=== PATIENT | male | born 1940 | race Caucasian/White ===

== ENCOUNTER 2016-04-30 08:16 | Emergency (ER) | payer MEDICARE, OTHER ==
[2016-04-30] MEDS ORDERED: SODIUM CHLORIDE 0.9% 1,000 ML IV STA (08:33)
[2016-04-30] MEDS ORDERED: PANTOPRAZOLE 40 MG/10 ML VIAL IVP STA (08:33)
[2016-04-30] MEDS ORDERED: ONDANSETRON 4 MG/2 ML VIAL IVP STA (08:33)
--- NOTE | 2016-04-30 08:35 | ED ---
General Adult HPI - General Chief complaint: Abdominal Pain Stated complaint: diarrhea x 6 days, stomach distended Time Seen by Provider: 04/30/16 08:24 Source: patient, RN notes reviewed Mode of arrival: ambulatory Limitations: no limitations - History of Present Illness Initial comments: Patient 75-year-old male who presents emergency room today with chief complaint of diarrhea times one week. Patient does admit that over the past week he had multiple episodes of diarrhea. States took Imodium seemed to improve. States yesterday morning had approximately 8 very loose bowel movements. States the rest of today no bowel movements and no bowel movement today. States his abdomen feels somewhat more distended today. He does admit to a cramping type pain that he rates 1/10 in the middle of his abdomen. Patient does admit to being on Coumadin due to A. fib. Does admit that at last bowel movement he wiped he did see some bright red blood on the toilet paper only. Patient denies any other complaints or symptoms. Patient denies any recent fever, chills , shortness of breath, chest pain, back pain, vomiting, numbness or tingling, dysuria or hematuria, constipation or diarrhea, headaches or visual changes, or any other complaints. - Related Data Home Medications Medication Instructions Recorded Confirmed Ascorbic Acid [Vitamin C] 500 mg PO QAM 04/29/15 04/30/16 Aspirin [Adult Low Dose Aspirin EC] 81 mg PO QAM 04/29/15 04/30/16 Atenolol 25 mg PO 04/29/15 04/30/16 Cholecalciferol [Vitamin D3] 1,000 unit PO DAILY 04/29/15 04/30/16 Diltiazem HCl [Cardizem] 120 mg PO [facility] 04/29/15 04/30/16 Esomeprazole Magnesium [NexIUM] 40 mg PO 04/29/15 04/30/16 Ezetimibe/Simvastatin [Vytorin 1 tab PO QAM 04/29/15 04/30/16 10-40 mg Tablet] Lisinopril [Zestril] 20 mg PO QAM 04/29/15 04/30/16 Tamsulosin [Flomax] 0.4 mg PO 04/29/15 04/30/16 Warfarin [Coumadin] 2.5 mg PO DAILY 04/29/15 04/30/16 Calcium Carbonate [Calcium] 600 mg PO DAILY 04/30/16 04/30/16 Allergies Allergy/AdvReac Type Severity Reaction Status Date / Time No Known Allergies Allergy Verified 04/30/16 10:14 Review of Systems ROS Statement: Those systems with pertinent positive or pertinent negative responses have been documented in the HPI. ROS Other: All systems not noted in ROS Statement are negative. 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 Eye: Pupils are equal, round and reactive to light, extra-ocular movements are intact. No nystagmus. There is normal conjunctiva bilaterally. No signs of icterus. Ears, nose, mouth and throat: There are moist mucous membranes and no oral lesions. Neck: The neck is supple, there is no tenderness or JVD. Cardiovascular: There is a regular rate and rhythm. No murmur, rub or gallop is appreciated. Respiratory: Lungs are clear to auscultation, respirations are non-labored, breath sounds are equal. No wheezes, stridor, rales, or rhonchi. Gastrointestinal: [Soft, non-distended, non-tender abdomen without masses or organomegaly noted. There is no rebound or guarding present. No CVA tenderness. Bowel sounds are unremarkable.] Musculoskeletal: Normal ROM, no tenderness. Strength 5/5. Sensation intact. Pulses equal bilaterally 2+. Neurological: A&O x 3. CN II-XII intact, There are no obvious motor or sensory deficits. Coordination appears grossly intact. Speech is normal. Skin: Skin is warm and dry and no rashes or lesions are noted. Psychiatric: Cooperative, appropriate mood & affect, normal judgment. Limitations: no limitations Course Vital Signs 04/30/16 04/30/16 04/30/16 08:18 10:06 10:51 Temperature 97.0 F L Pulse Rate 90 74 65 Respiratory 17 18 16 Rate Blood Pressure 136/82 129/61 128/79 O2 Sat by Pulse 98 98 99 Oximetry Medical Decision Making - Medical Decision Making Vision reexamined at this time shows no signs of distress. Patient resting comfortably in the stretcher. His abdomen soft and palpation. Patient's CT reviewed and does show evidence for enteritis/colitis. Does show fatty infiltrate of the liver. Results were discussed with the patient. At this time is resting comfortably. His labs are been reviewed and are unremarkable. Case discussed with attending physician Dr. Marcelo. Patient will be discharged home advised follow-up the family doctor over the next 2 days. He is advised to use Imodium for any diarrhea. Advised return if any symptoms increase or worsen. Patient and family were at bedside state understanding and are in agreement. - Lab Data Result diagrams: 04/30/16 08:45 04/30/16 08:45 Lab Results 04/30/16 04/30/16 04/30/16 Range/Units 08:45 08:45 08:45 WBC 7.2 (3.8-10.6) k/uL RBC 5.02 (4.30-5.90) m/uL Hgb 15.4 (13.0-17.5) gm/dL Hct 44.8 (39.0-53.0) % MCV 89.3 (80.0-100.0) fL MCH 30.7 (25.0-35.0) pg MCHC 34.3 (31.0-37.0) g/dL RDW 12.9 (11.5-15.5) % Plt Count 168 (150-450) k/uL Neutrophils % 69 % Lymphocytes % 19 % Monocytes % 7 % Eosinophils % 2 % Basophils % 1 % Neutrophils # 5.0 (1.3-7.7) k/uL Lymphocytes # 1.3 (1.0-4.8) k/uL Monocytes # 0.5 (0-1.0) k/uL Eosinophils # 0.1 (0-0.7) k/uL Basophils # 0.1 (0-0.2) k/uL PT 14.9 H (9.0-12.0) sec INR 1.5 (<1.1) APTT 28.0 (22.0-30.0) sec Sodium 144 (137-145) mmol/L Potassium 4.3 (3.5-5.1) mmol/L Chloride 107 (98-107) mmol/L Carbon Dioxide 24 (22-30) mmol/L Anion Gap 13 mmol/L BUN 16 (9-20) mg/dL Creatinine 1.07 (0.66-1.25) mg/dL Est GFR (MDRD) Af Amer >60 (>60 ml/min/1.73 sqM) Est GFR (MDRD) Non-Af >60 (>60 ml/min/1.73 sqM) Glucose 136 H (74-99) mg/dL Calcium 8.9 (8.4-10.2) mg/dL Total Bilirubin 0.9 (0.2-1.3) mg/dL AST 45 (17-59) U/L ALT 57 (21-72) U/L Alkaline Phosphatase 77 (38-126) U/L Total Protein 6.6 (6.3-8.2) g/dL Albumin 4.0 (3.5-5.0) g/dL Urine Color Urine Appearance (Clear) Urine pH (5.0-8.0) Ur Specific [place] (1.001-1.035) Urine Protein (Negative) Urine Glucose (UA) (Negative) Urine Ketones (Negative) Urine Blood (Negative) Urine Nitrate (Negative) Urine Bilirubin (Negative) Urine Urobilinogen (<2.0) mg/dL Ur Leukocyte Esterase (Negative) Stool Occult Blood (Negative) 04/30/16 04/30/16 Range/Units 08:45 08:45 WBC (3.8-10.6) k/uL RBC (4.30-5.90) m/uL Hgb (13.0-17.5) gm/dL Hct (39.0-53.0) % MCV (80.0-100.0) fL MCH (25.0-35.0) pg MCHC (31.0-37.0) g/dL RDW (11.5-15.5) % Plt Count (150-450) k/uL Neutrophils % % Lymphocytes % % Monocytes % % Eosinophils % % Basophils % % Neutrophils # (1.3-7.7) k/uL Lymphocytes # (1.0-4.8) k/uL Monocytes # (0-1.0) k/uL Eosinophils # (0-0.7) k/uL Basophils # (0-0.2) k/uL PT (9.0-12.0) sec INR (<1.1) APTT (22.0-30.0) sec Sodium (137-145) mmol/L Potassium (3.5-5.1) mmol/L Chloride (98-107) mmol/L Carbon Dioxide (22-30) mmol/L Anion Gap mmol/L BUN (9-20) mg/dL Creatinine (0.66-1.25) mg/dL Est GFR (MDRD) Af Amer (>60 ml/min/1.73 sqM) Est GFR (MDRD) Non-Af (>60 ml/min/1.73 sqM) Glucose (74-99) mg/dL Calcium (8.4-10.2) mg/dL Total Bilirubin (0.2-1.3) mg/dL AST (17-59) U/L ALT (21-72) U/L Alkaline Phosphatase (38-126) U/L Total Protein (6.3-8.2) g/dL Albumin (3.5-5.0) g/dL Urine Color Yellow Urine Appearance Clear (Clear) Urine pH 5.0 (5.0-8.0) Ur Specific [place] 1.014 (1.001-1.035) Urine Protein Negative (Negative) Urine Glucose (UA) Negative (Negative) Urine Ketones Negative (Negative) Urine Blood Negative (Negative) Urine Nitrate Negative (Negative) Urine Bilirubin Negative (Negative) Urine Urobilinogen <2.0 (<2.0) mg/dL Ur Leukocyte Esterase Negative (Negative) Stool Occult Blood Negative (Negative) Disposition Clinical Impression: Acute diarrhea, Colitis Disposition: HOME SELF-CARE Condition: Good Instructions: Acute Diarrhea (ED) Additional Instructions: Please use medication as discussed. Please follow-up with family doctor in the next 2 days of symptoms have not improved. Please return to emergency room if the symptoms increase or worsen or for any other concerns. Time of Disposition: 10:57
[2016-04-30 08:58] LABS: Basophils # (A) 0.1 k/uL (0-0.2); Basophils % (A) 1 %; Eosinophils # (A) 0.1 k/uL (0-0.7); Eosinophils % (A) 2 %; HCT 44.8 % (39.0-53.0); HDW 2.94; HGB 15.4 gm/dL (13.0-17.5); Luc # (Auto) 0.18; Luc % (Auto) 3; Lymphocytes # (A) 1.3 k/uL (1.0-4.8); Lymphocytes % (A) 19 %; MCH 30.7 pg (25.0-35.0); MCHC 34.3 g/dL (31.0-37.0); MCV 89.3 fL (80.0-100.0); Monocytes # (A) 0.5 k/uL (0-1.0); Monocytes % (A) 7 %; Neutrophils % (A) 69 %; RBC 5.02 m/uL (4.30-5.90); RDW 12.9 % (11.5-15.5); WBC 7.2 k/uL (3.8-10.6)
[2016-04-30] MEDS ORDERED: RX INFO: IV CONTRAST WAS GIVEN 1 EACH MISC MISCELLANE PRN (08:58)
[2016-04-30 08:59] LABS: Appearance,Urine Clear (Clear); Bilirubin,Urine Negative (Negative); Glucose,Urine (UA) Negative (Negative); Ketones,Urine Negative (Negative); Leukocyte Esterase,Urine Negative (Negative); Nitrite,Urine Negative (Negative); Protein,Urine Negative (Negative); Specific Gravity,Urine 1.014 (1.001-1.035); UA Billing (MACRO vs. MICRO) CHEM; Urobilinogen,Urine <2.0 mg/dL (<2.0)
--- NOTE | 2016-04-30 09:05 | XR ---
EXAMINATION TYPE: XR KUB DATE OF EXAM ORDERED: 04/30/2016 8:58 AM HISTORY: Abdominal pain and diarrhea. COMPARISON: None. FINDINGS: The abdominal gas pattern is normal. There is no evidence of obstruction or free air. No u nusual calcifications are identified. Scattered colonic air-fluid levels are seen. IMPRESSION: FINDINGS MOST CONSISTENT WITH EARLY COLONIC ILEUS.
[2016-04-30 09:10] LABS: INR 1.5 (<1.1); Prothrombin Time 14.9 sec (9.0-12.0)
[2016-04-30 09:11] LABS: ALT 57 U/L (21-72); AST 45 U/L (17-59); Alkaline Phosphatase 77 U/L (38-126); Anion Gap 13 mmol/L; Blood Urea Nitrogen 16 mg/dL (9-20); Calcium 8.9 mg/dL (8.4-10.2); Carbon Dioxide 24 mmol/L (22-30); Chloride 107 mmol/L (98-107); Glucose 136 mg/dL (74-99); Non-African American GFR(MDRD) >60 (>60 ml/min/1.73 sqM); Potassium 4.3 mmol/L (3.5-5.1); Sodium 144 mmol/L (137-145); Total Bilirubin 0.9 mg/dL (0.2-1.3); Total Protein 6.6 g/dL (6.3-8.2)
--- NOTE | 2016-04-30 10:11 | CT ---
EXAMINATION TYPE: CT abdomen pelvis w con DATE OF EXAM: 04/30/2016 9:52 AM COMPARISON: Abdomen same date HISTORY: Diarrhea and distention CT DLP: 1617.6 mGycm Automated exposure control for dose reduction was used. TECHNIQUE: Helical acquisition of images was performed from the lung bases through the pelvis. CONTRAST: Performed without Oral Contrast and with IV Contrast, patient injected with 100 mL of Omnipaque 300. FINDINGS: There is a small hiatal hernia. LUNG BASES: Dependent atelectatic changes are present posteriorly LIVER/GB: Liver shows low attenuation. It is enlarged compatible with fatty infiltration. Gallbladder is normal. PANCREAS: No significant abnormality is seen. SPLEEN: No significant abnormality is seen. ADRENALS: No significant abnormality is seen. KIDNEYS: No significant abnormality is seen. Small cortical cyst present within the lower pole of the right kidney measures only approximately 1 cm RETROPERITONEAL ADENOPATHY: None visualized REPRODUCTIVE ORGANS: Prostate is enlarged and shows associated calcification URINARY BLADDER: Bladder wall is somewhat thickened likely due to chronic outlet obstruction PELVIC ADENOPATHY: None visualized. OSSEOUS STRUCTURES: Degenerative disc changes are present at the lumbar spine especially at the lowe r levels where there is vacuum phenomenon at L4-5 and L5-S1. There is associated facet arthropathy. BOWEL: Colonic wall thickening is indeterminate. Some minimal diverticular changes present. OTHER: Some fluid-filled loops of small bowel with questionable wall thickening. IMPRESSION: CORRELATE FOR COLITIS, ENTERITIS. DIVERTICULOSIS. PROBABLE FATTY INFILTRATION OF THE LIVER, HEPATOMEG ERIN. SMALL HIATAL HERNIA. ADDITIONAL FINDINGS ABOVE.
[2016-04-30 10:52] VITALS: BP 128/79; PULSE 65; RESP 16
[2016-04-30 11:12] VITALS: TEMP 97.8
== END 2016-04-30 11:12 | disposition home or self-care (01) ==
LOC: EC 08:16
DX: K52.9 Noninfective gastroenteritis and colitis, unspecified (principal); I48.91 Unspecified atrial fibrillation; I10 Essential (primary) hypertension; E78.5 Hyperlipidemia, unspecified; K76.0 Fatty (change of) liver, not elsewhere classified; Z79.01 Long term (current) use of anticoagulants; Z79.82 Long term (current) use of aspirin; Z79.899 Other long term (current) drug therapy
CPT/HCPCS: 36415; 80053; 85025; 85610; 85730; 82272; 81003; 74000; 74177; 99284; 96374; 96375; 96361 ×2; J2405; Q9967; C9113

== ENCOUNTER → 2016-06-15 | Outpatient (CLI) | payer MEDICARE, OTHER ==
--- NOTE | 2016-06-15 22:06 | PN ---
This is a 76-year-old male patient who was originally seen by Dr. Dickey. The patient was initially given CPAP which he failed and he was upgraded to a BiPAP machine. During my latest evaluation of this patient in 2015, I thought the BiPAP was somewhat suboptimal. Nevertheless, the data was not accurate, knowing that the setting on the BiPAP machine was done while the machine set on a full face mask. I changed setting into a nasal pillow, knowing that the patient was using a Her FX nasal pillow and I asked the patient to come back for a followup. In the record, there is a mention that the patient is on an ASV machine; however, this is wrong information and the patient continues to be on a BiPAP ST with a pressure of 18/14 cm of water with a back-up rate of 10. The patient is coming in today for a followup. He is very content and he tells me that he is waking up much more alert and awake during the day and according to him, the treatment was successful. Nevertheless, his compliance data does not reflect that. His AHI while on treatment is still elevated at 42. No central events were recorded. He is leaking considerably around 66 L/min and his recorded tidal volume of 480 mL. His average BiPAP use is around 7.4 hours per night. Despite his compliancy, the data recorded by the machine seems to be suboptimal, as the patient may still be having some obstructive respiratory events, despite utilizing a higher BiPAP with pressures of 18/14. No indication of any treatment ( ) with central apneas. His current vitals are as follows: His blood pressure is 136/85, pulse rate 60, respirations 16, temperature 98.1, saturation 99% on room air and his weight is 205, which is 6 pounds higher compared to his last evaluation back in November 2015. GENERAL APPEARANCE: Calm, comfortable. HEENT: Short neck, crowding of posterior pharynx. There is no goiter, neck masses. LUNGS: Clear to auscultation. HEART: Sounds are regular rate and rhythm. Normal S1, S2. No S3. No S4. No murmurs. ABDOMEN: Soft, nontender. No organomegaly. EXTREMITIES: No clubbing. No cyanosis or clubbing. IMPRESSION: 1. Severe symptomatic obstructive sleep apnea with suboptimal treatment. 2. Hypersomnia. Clinically, the patient is improved; however, based on his compliance data, the patient is still having obstructive respiratory events with an apnea-hypopnea index of 41 while on treatment. this needs to be further adjusted. 3. Obesity with interval weight gain. Body mass index of 35.1. 4. Hypertension. 5. Coronary artery disease. 6. Hyperlipidemia. 7. Gastroesophageal reflux disease. PLAN: 1. Will step up the pressure to 20/16 cm of water. 2. ( ) the Her FX mask with the intention of switching him to a full face mask if the patient's leak increases with the above-mentioned pressure changes. Ultimately, we may need to consider another BiPAP titration if his AHI while on treatment remains high. As mentioned, despite this shortcoming, the patient clinically is improved significantly and he feels much better while on BiPAP treatment. As such, he has been very compliant over the past several months.
--- NOTE | 2016-07-07 08:11 | PN ---
ADDENDUM: DATE OF SERVICE: 06/15/2016 IMPRESSION: The patient has complex sleep apnea with suboptimal treatment and secondary to hypersomnia. PLAN: Make the appropriate BiPAP pressure setting adjustments. Consider another BiPAP titration if the AHI remains considerably elevated.
== END | disposition home or self-care (01) ==
LOC: SLEEP 13:59
PROVIDERS: ATTEND Internal Medicine Critical Care Medicine
DX: G47.33 Obstructive sleep apnea (adult) (pediatric) (principal); G47.10 Hypersomnia, unspecified; E66.9 Obesity, unspecified; Z68.35 Body mass index [BMI] 35.0-35.9, adult; I10 Essential (primary) hypertension; I25.10 Atherosclerotic heart disease of native coronary artery without angina pectoris; E78.5 Hyperlipidemia, unspecified; K21.9 Gastro-esophageal reflux disease without esophagitis

== ENCOUNTER 2020-06-09 20:46 | Inpatient (IN) | payer MEDICARE, OTHER ==
--- NOTE | 2020-06-09 23:16 | ED ---
General Adult HPI - General Stated complaint: Vision problems Source: patient Mode of arrival: ambulatory Limitations: no limitations - History of Present Illness Initial comments: Dictation was produced using [employer] dictation software. please excuse any grammatical, word or spelling errors. This patient was cared for during a federal and state declared state of emergency secondary to Covid 19 Chief Complaint: 80-year-old male presents with acute diplopia History of Present Illness: This 72-year-old male who has past medical history dyslipidemia, A. fib and hypertension. Patient states he developed acute diplopia starting at 8:30 PM. States when this happened he was resting. Patient denies any history of diplopia. Has history of pituitary tumor that was operated on transfer and I believe several months ago. Patient has any numbness and paresthesias to the arms or legs. is at bedside reports he does not look confused. He does not have any facial asymmetry. Patient has history of A. fib. He takes Coumadin. The ROS documented in this emergency department record has been reviewed and confirmed by me. Those systems with pertinent positive or negative responses have been documented in the HPI. All other systems are other negative and/or noncontributory. PHYSICAL EXAM: General Impression: Alert and oriented x3, not in acute distress HEENT: Normocephalic atraumatic, pupils equal and reactive to light bilaterally, mucous membranes moist Cardiovascular: Heart regular rate and rhythm Chest: Able to complete full sentences, no retractions, no tachypnea Abdomen: abdomen soft, non-tender, non-distended, no organomegaly Musculoskeletal: Pulses present and equal in all extremities, no peripheral edema Motor: no focal deficits noted Neurological: Pupils equal round reactive to light, no facial asymmetry, patient does have inability for the pupil to track upwards of the right eye when asked to look up. He will with straight gaze does not have done a no pupil, no appreciable ptosis. No focal neurologic deficits of the arms or legs. No ataxia. No aphasia or dysarthria Skin: Intact with no visualized rashes Psych: Normal affect and mood ED course: 80-year-old male presents with acute diplopia. Vital signs upon arrival are within acceptable limits. Patient initially evaluated triage. He is moved to trauma bay #3. Case is discussed with Dr. Farrell who recommends that patient be started off as a code stroke. EKG shows atrial fibrillation with right bundle branch block. Patient given an initial NIH score of 1. He is not a TPA candidate. Dr. Farrell called us back at 11:30 after reviewing the films CT images were negative. No indication for TPA administration or thrombectomy. Recommendation was to give patient aspirin and Lipitor. Laboratory evaluation obtained. Patient reevaluated at bedside for basilar medical condition. Radiology reviews of the imaging studies were obtained. There is findings of sinusitis on the computed tomography scan of the brain. Angiography CT of the head and neck shows some plaque formation and mild narrowing of the left internal carotid. No significant intracranial angiographic abnormality. Case is discussed with Dr. garces of was telephone claims representative for patient's primary care physician. Patient will be admitted with consultation to neurology. - Related Data Home Medications Medication Instructions Recorded Confirmed Ascorbic Acid [Vitamin C] 500 mg PO QAM 04/29/15 04/30/16 Aspirin [Adult Low Dose Aspirin EC] 81 mg PO QAM 04/29/15 04/30/16 Cholecalciferol [Vitamin D3] 1,000 unit PO DAILY 04/29/15 04/30/16 Diltiazem HCl [Cardizem] 120 mg PO QAM 04/29/15 04/30/16 Esomeprazole Magnesium [NexIUM] 40 mg PO HS 04/29/15 04/30/16 Ezetimibe/Simvastatin [Vytorin 1 tab PO QAM 04/29/15 04/30/16 10-40 mg Tablet] Tamsulosin [Flomax] 0.4 mg PO HS 04/29/15 04/30/16 Warfarin [Coumadin] 2.5 mg PO DAILY 04/29/15 04/30/16 atenoloL [Atenolol] 25 mg PO HS 04/29/15 04/30/16 lisinopriL [Zestril] 20 mg PO QAM 04/29/15 04/30/16 Calcium Carbonate [Calcium] 600 mg PO DAILY 04/30/16 04/30/16 Allergies Allergy/AdvReac Type Severity Reaction Status Date / Time No Known Allergies Allergy Verified 06/09/20 22:58 Review of Systems ROS Statement: Those systems with pertinent positive or pertinent negative responses have been documented in the HPI. ROS Other: All systems not noted in ROS Statement are negative. 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 Past Psychological History: No Psychological Hx Reported Past Alcohol Use History: Daily Past Drug Use History: None Reported General Exam Limitations: no limitations Course Vital Signs 06/09/20 22:50 Temperature 97.8 F Pulse Rate 77 Respiratory 18 Rate Blood Pressure 156/85 O2 Sat by Pulse 94 L Oximetry Medical Decision Making - Lab Data Result diagrams: 06/09/20 23:14 Lab Results 06/09/20 06/09/20 Range/Units 23:14 23:14 WBC 8.6 (3.8-10.6) k/uL RBC 4.83 (4.30-5.90) m/uL Hgb 15.0 (13.0-17.5) gm/dL Hct 42.8 (39.0-53.0) % MCV 88.6 (80.0-100.0) fL MCH 31.0 (25.0-35.0) pg MCHC 35.0 (31.0-37.0) g/dL RDW 13.2 (11.5-15.5) % Plt Count 182 (150-450) k/uL MPV 7.4 Neutrophils % 59 % Lymphocytes % 25 % Monocytes % 9 % Eosinophils % 3 % Basophils % 1 % Neutrophils # 5.1 (1.3-7.7) k/uL Lymphocytes # 2.1 (1.0-4.8) k/uL Monocytes # 0.8 (0-1.0) k/uL Eosinophils # 0.3 (0-0.7) k/uL Basophils # 0.1 (0-0.2) k/uL PT 18.3 H (9.0-12.0) sec INR 1.9 H (<1.2) APTT 32.7 H (22.0-30.0) sec Disposition Clinical Impression: Diplopia Disposition: ADMITTED IP TO THIS HOSP Condition: Fair Referrals: Cipriano Campos MD [Primary Care Provider] - 1-2 days Decision Time: 00:24
[2020-06-09 23:29] LABS: Basophils # (A) 0.1 k/uL (0-0.2); Basophils % (A) 1 %; Eosinophils # (A) 0.3 k/uL (0-0.7); Eosinophils % (A) 3 %; HCT 42.8 % (39.0-53.0); Lymphocytes # (A) 2.1 k/uL (1.0-4.8); Lymphocytes % (A) 25 %; MCV 88.6 fL (80.0-100.0); Mean Platelet Volume 7.4; Monocytes # (A) 0.8 k/uL (0-1.0); Monocytes % (A) 9 %; Neutrophils # (A) 5.1 k/uL (1.3-7.7); Neutrophils % (A) 59 %; Platelet Count 182 k/uL (150-450); RBC 4.83 m/uL (4.30-5.90); RDW 13.2 % (11.5-15.5); WBC 8.6 k/uL (3.8-10.6)
[2020-06-09] MEDS ORDERED: PIPERACILLIN-TAZOBACTAM 3.375 GM in SODIUM CHLORIDE 0.9% 100 ML IVPB STA (23:36)
[2020-06-09] MEDS ORDERED: VANCOMYCIN IV PER PHARMACY 1 EACH MISC MISCELLANE PRN (23:37)
[2020-06-09] MEDS ORDERED: DEXAMETHASONE SOD PHOSPHATE 10 MG/ML 1 ML VIAL IV STA (23:37)
[2020-06-09 23:44] LABS: INR 1.9 (<1.2); Partial Thromboplastin Time 32.7 sec (22.0-30.0); Prothrombin Time 18.3 sec (9.0-12.0)
--- NOTE | 2020-06-09 23:44 | CT ---
EXAMINATION TYPE: CT brain wo con DATE OF EXAM: 06/09/2020 COMPARISON: 10/26/2012 HISTORY: Diplopia. CT DLP: mGycm Automated exposure control for dose reduction was used. There is cerebral cortical atrophy. There is no mass effect nor midline shift. There is no sign of in tracranial hemorrhage. Calvarium is intact. Skull base is intact. There is normal aeration of the mas toid sinuses. IMPRESSION: Cerebral atrophy with mild progression compared to old exam. There is moderate bilateral maxillary sinusitis which is new compared to old exam.
--- NOTE | 2020-06-09 23:54 | CT ---
EXAMINATION TYPE: CT angio head neck DATE OF EXAM: 06/09/2020 COMPARISON: None HISTORY: Diplopia. Weakness. CT DLP: mGycm Automated exposure control for dose reduction was used. CONTRAST: The contrast was Isovue 65 mL. There are 3-D post processed images. Images obtained from the aortic a rch to the vertex of the brain. FINDINGS: I see no filling defects in the pulmonary arteries. Thoracic aorta shows no evidence of aneurysm or d issection. The ascending aorta measures 3.9 cm. Heart appears enlarged. There is no pericardial effus ion. There is no mediastinal adenopathy. There is normal branching pattern of the great vessels on the aortic arch. There is bilateral arteria l flow in the subclavian arteries. There is arterial flow in the common internal and external carotid arteries bilaterally. There is moderate plaque formation at the left carotid artery bifurcation with approximate 35% stenosis proximal left internal carotid artery. There is no evidence of any signific ant stenosis at the right internal carotid artery. There is arterial flow in the vertebral arteries. Right vertebral artery is much larger than the left. There is arterial flow in the vertebrobasilar ar frank system. There is significant plaque formation in the distal right vertebral artery. There is no evidence of carotid or vertebral artery aneurysm or dissection. The basilar artery appears to fill entirely from the right vertebral artery. There is arterial flow i n the anterior middle and posterior cerebral arteries. There is large left posterior communicating ar frank. I see no mass effect. There is no evidence of intracranial aneurysm or neovascularity. There is normal enhancement of the venous sinuses. There is some enlargement of the sella turcica on the righ t side. This measures 15 x 11 mm. There is no evidence of intracranial hemodynamic arterial stenosis. IMPRESSION: There is some plaque formation and mild narrowing of the proximal left internal carotid artery. Moder ate plaque and calcification noted in the distal right vertebral artery. No significant intracranial angiographic abnormality. Moderate bilateral maxillary sinusitis. Enlargement of the right side of the sella turcica with a mass that is appears reduced compared to ol d CT scan of 10/26/2012.
[2020-06-10] MEDS ORDERED: ONDANSETRON 4 MG/2 ML VIAL IVP PRN (00:18)
[2020-06-10] MEDS ORDERED: NALOXONE 0.4 MG/ML 1 ML VIAL IV PRN (00:18)
[2020-06-10] MEDS ORDERED: SODIUM CHLORIDE 0.9% 1,000 ML IV SCH (00:30)
[2020-06-10 00:49] LABS: Calcium 9.2 mg/dL (8.4-10.2); Potassium 4.3 mmol/L (3.5-5.1)
[2020-06-10] MEDS ORDERED: VANCOMYCIN 2,000 MG in SODIUM CHLORIDE 0.9% 500 ML 500 ML IVPB ONE (01:00)
[2020-06-10] MEDS ORDERED: ASPIRIN 81 MG PO STA (01:00)
[2020-06-10 06:16] LABS: Glucose,Whole Blood 129 mg/dL (75-99)
[2020-06-10 08:17] VITALS: BP 169/93; PULSE 85; RESP 16; TEMP 97.6
[2020-06-10] MEDS ORDERED: ATORVASTATIN 40 MG TAB PO SCH (09:00)
[2020-06-10] MEDS ORDERED: DILTIAZEM CD 120 MG CAP.ER.24H PO SCH (09:30)
[2020-06-10] MEDS ORDERED: PANTOPRAZOLE 40 MG TABLET PO SCH (09:30)
[2020-06-10] MEDS ORDERED: atenoloL 25 MG TAB PO SCH (09:30)
[2020-06-10] MEDS ORDERED: lisinopriL 20 MG TAB PO SCH (09:30)
[2020-06-10] MEDS ORDERED: LINAGLIPTIN 5 MG TABLET PO SCH (10:00)
[2020-06-10] MEDS ORDERED: ATORVASTATIN 20 MG TAB PO SCH ×2 (10:00→21:00)
[2020-06-10] MEDS ORDERED: metFORMIN 500 MG TAB PO SCH (10:00)
[2020-06-10] MEDS ORDERED: EZETIMIBE 10 MG TAB PO SCH (10:00)
[2020-06-10 10:51] LABS: INR 1.7 (<1.2); Prothrombin Time 17.2 sec (9.0-12.0)
--- NOTE | 2020-06-10 12:12 | P.HPIM ---
History of Present Illness H&P Date: 06/10/20 HISTORY AND PHYSICAL AND DISCHARGE SUMMARY: HISTORY OF PRESENT ILLNESS A 80-year-old male patient of Dr. Campos with past medical history of paroxysmal atrial fibrillation, diabetes mellitus type 2, hypertension, hyperlipidemia, history of pituitary tumor resection, obstructive sleep apnea on BiPAP, gastroesophageal reflux disease, benign prostatic hypertrophy. Patient co mplains of double vision that started sudden onset at 8:30 last evening while at rest. No slurred speech, facial asymmetry, numbness or tingling. No weakness of the extremities. Patient states he saw Dr. Joyner his clipping marker 3 days ago. Patient presented to [facility] for evaluation. CT angiogram of the head and neck revealed no significant intracranial angiographic abnormality. Moderate bilateral maxillary sinusitis. There is some plaque formation and mild narrowing of the proximal left internal carotid artery. Moderate plaque and calcification noted in the distal right vertebral artery. CAT scan of the brain reveals a 1.5 x 1.1 cm right side. Sellar mass also present on old CT and reduced in size. Cerebral atrophy with mild progression compared to old exam. Moderate bilateral maxillary sinusitis which is new. CBC is normal. INR 1.9. Electrolytes and renal function normal. Blood sugar 60. Coronavirus PCR not detected. EKG is atrial fibrillation with right bundle branch block. He was afebrile, heart rate 77, blood pressure 156/85, pulse ox 94% on room air. Patient admitted to the cardiac stepdown unit and neurology consult requested. Patient has been seen by Dr. Elkins with recommendations for outpatient MRI with and without contrast of the brain, orbits and pituitary, neurology follow-up and ophthalmology follow-up outpatient. Patient is agreeable for discharge home. At the time of evaluation, all symptoms have resolved. REVIEW OF SYSTEMS Constitutional: No fever, no chills, no night sweats. No weight change. No weakness, fatigue or lethargy. No daytime sleepiness. EENT: No headache. No blurred vision or double vision, no loss of vision. No dizziness. No nasal drainage or congestion. No epistaxis. No sore throat. Lungs: No shortness of breath, cough, no sputum production. No wheezing. Cardiovascular: No chest pain, no lower extremity edema. No palpitations. No paroxysmal nocturnal dyspnea. No orthopnea. No lightheadedness or dizziness. No syncopal episodes. Abdominal: No abdominal pain. No nausea, vomiting. No diarrhea. No constipation. No bloody or tarry stools.. No loss of appetite. Genitourinary: No dysuria, increased frequency, urgency. No urinary retention. Musculoskeletal: No myalgias. No muscle weakness, no gait dysfunction, no frequent falls. No back pain. No neck pain. Integumentary: No wounds, no lesions. No rash or pruritus. Neurologic: No aphasia. No facial droop. No change in mentation. No head injury. No headache. No paralysis. No paresthesia. Psychiatric: No depression. No anxiety. Endocrine: No abnormal blood sugars. No weight change. SOCIAL HISTORY Patient is a lifelong nonsmoker, occasional alcohol use, no illicit drug use. He lives at home with his . He does not utilize cane or walker for ambulation. FAMILY HISTORY Mother at age 80 from suicide with long history of mental health issues. Father at age 60 from coronary artery disease. Patient has one brother is alive with history of coronary artery disease. No history of CVA. Patient does not have any sisters. Patient has 2 children with no major medical problems. PHYSICAL EXAMINATION Gen: This is a 80-year-old male. He is resting recliner and appears to be in no acute distress. HEENT: Head is atraumatic, normocephalic. Pupils equal, round. Sclerae is anicteric. The intraocular eye motions intact bilaterally. NECK: Supple. No JVD. No lymphadenopathy. No thyromegaly. LUNGS: Clear to auscultation. No wheezes or rhonchi. No intercostal retrac tions. HEART: Regular rate and rhythm. No murmur. ABDOMEN: Soft. Bowel sounds are present. No masses. No tenderness. EXTREMITIES: No pedal edema. No calf tenderness. NEUROLOGICAL: Patient is awake, alert and oriented x3. Cranial nerves 2 through 12 are grossly intact. No neuro deficits noted. ASSESSMENT AND PLAN 1. Diplopia. Consult with neurology appreciated. Therefore outpatient workup. 2. Paroxysmal atrial fibrillation. 3. Diabetes mellitus type 2. 4. Hypertension. 5. Hyperlipidemia. 6. History of pituitary gland resection. 7. Obstructive sleep apnea on BiPAP. 8. Gastroesophageal reflux disease. 9. Benign prostatic hypertrophy. Patient placed as observation status. DISCHARGE PLAN Home. Impression and plan of care have been directed as dictated by the signing physician. Erica Alfredo nurse practitioner acting as scribe for signing physician. Past Medical History Past Medical History: Atrial Fibrillation, Diabetes Mellitus, Hyperlipidemia, Hypertension, Prostate Disorder History of Any Multi-Drug Resistant Organisms: None Reported Additional Past Surgical History / Comment(s): pitutary tumor removed Past Anesthesia/Blood Transfusion Reactions: No Reported Reaction Past Psychological History: No Psychological Hx Reported Smoking Status: Never smoker Past Alcohol Use History: Occasional Past Drug Use History: None Reported - Past Family History Father Family Medical History: Congestive Heart Failure (CHF), Myocardial Infarction ( [place]) Medications and Allergies Home Medications Medication Instructions Recorded Confirmed Type Ascorbic Acid [Vitamin C] 500 mg PO DAILY 04/29/15 06/10/20 History Cholecalciferol [Vitamin D3 (25 25 mcg PO DAILY 04/29/15 06/10/20 History Mcg = 1000 Iu)] Esomeprazole Magnesium [NexIUM] 40 mg PO DAILY 04/29/15 06/10/20 History Ezetimibe/Simvastatin [Vytorin 1 tab PO DAILY 04/29/15 06/10/20 History 10-40 mg Tablet] Tamsulosin [Flomax] 0.4 mg PO DAILY 04/29/15 06/10/20 History Warfarin [Coumadin] 2.5 mg PO SUMOTUTHSA 04/29/15 06/10/20 History atenoloL [Atenolol] 25 mg PO DAILY 04/29/15 06/10/20 History lisinopriL [Zestril] 20 mg PO DAILY 04/29/15 06/10/20 History Calcium Carbonate [Calcium] 300 mg PO DAILY 04/30/16 06/10/20 History Diltiazem Cd [Cardizem CD] 120 mg PO DAILY 06/10/20 06/10/20 History Latanoprost/Pf [Latanoprost 0.005% 1 drop BOTH EYES HS 06/10/20 06/10/20 History Eye Drop] Montelukast [Singulair] 10 mg PO HS 06/10/20 06/10/20 History Repaglinide [Prandin] 2 mg PO AC-BID 06/10/20 06/10/20 History Warfarin [Coumadin] 5 mg PO WEFR 06/10/20 06/10/20 History sitaGLIPtin PHOS/metFORMIN HCL 1 tab PO AC-BID 06/10/20 06/10/20 History [Janumet 50-500 mg Tablet] Allergies Allergy/AdvReac Type Severity Reaction Status Date / Time No Known Allergies Allergy Verified 06/10/20 09:09 Physical Exam Vitals: Vital Signs Temp Pulse Pulse Resp BP BP Pulse Ox 06/10/20 08:15 97.6 F 85 16 169/93 98 06/10/20 04:00 98.1 F 66 18 146/68 94 L 06/10/20 01:03 97.4 F L 81 18 142/85 98 06/10/20 00:45 84 18 161/89 97 06/10/20 00:15 97.6 F 79 18 143/102 97 06/09/20 23:45 97.7 F 84 18 130/87 98 06/09/20 23:30 97.7 F 80 18 134/82 98 06/09/20 23:15 97.9 F 80 18 137/85 97 06/09/20 22:50 97.8 F 77 18 156/85 94 L Intake and Output 06/09/20 06/10/20 06/10/20 22:59 06:59 14:59 Other: # Voids 1 Weight 90.718 kg 93 kg Results CBC & Chem 7: 06/09/20 23:14 06/09/20 23:14 Labs: Abnormal Lab Results - Last 24 Hours (Table) 06/09/20 06/10/20 Range/Units 23:14 06:14 PT 18.3 H (9.0-12.0) sec INR 1.9 H (<1.2) APTT 32.7 H (22.0-30.0) sec POC Glucose (mg/dL) 129 H (75-99) mg/dL Thrombosis Risk Factor Assmnt - Choose All That Apply Any of the Below Risk Factors Present?: No Other Risk Factors: Yes Each Risk Factor Represents 3 Points: Age 75 years or older Thrombosis Risk Factor Assessment Total Risk Factor Score: 3 Thrombosis Risk Factor Assessment Level: Moderate Risk
--- NOTE | 2020-06-10 12:22 | P.CNNES ---
History of Present Illness Consult date: 06/10/20 Requesting physician: Haseeb Perkins Reason for Consult: diplopia with possible superior recturs palsy History of Present Illness: This is a 80-year-old gentleman with medical history of hypertension, dyslipidemia, atrial fibrillation that presented emergency department on 06/09/2020 for acute diplopia that started around 8:30 pm on 06/09/20. He stated that diplopia was over both eyes and that was one on top but the other and it was when he was looking straight up. When he covered either eye it with the resolve. He denies difficulty moving his eyes in either direction. He denies any weakness associate with that, any numbness or tingling, difficulty getting his words out, any difficulty ambulating. The episode of the diplopia lasted until 11:30 PM the on 06/09/2020. He feels he is back to baseline. He n otified me that he receive his Covid the 19 second dose this past Tuesday. He denies of any fevers coughs. Denies any trauma to the eyes. Denies of feeling any fatigue after moving. Denies any ptosis of the eyes. Denies similar presentation like this in the past. According to the patient and he has a history of pituitary tumor diagnosed either in 1999 50 2007 in which she had the resection over at [facility] and he gets surveillance MRI every 5 years and the last one was a couple years ago. Patient is on Coumadin for his atrial fibrillation. She stated he is on Lipitor 20 mg daily. He denies follow-up with a neurologist or neurosurgeon. In the ED was felt that the patient had inability for the people to track a port over the right. A stroke code was activated and was felt the NIH was a 1. The patient was not a TPA candidate or thrombectomy (as documented by ED note upon speaking with Dr. Hawthorne (stroke code team/interventional neurology). Workup in the hospital consisted of: Initial vital signs: Low pressure of 156/85, heart rate of 77, respiratory of 18, temperature of 97.8 Fahrenheit oral, pulse ox of 94% at room air. CT of the head is reported as cerebral atrophy with mild progression compared to old exam. There is moderate bilateral maxillary sinusitis which is new compared to old exam. CT angiography of the head and neck was reported as there is some plaque format ion and mild narrowing of the proximal left internal carotid artery. Mild plaque and calcification noted in the distal right vertebral artery. No significant intercranial and angiographic abnormality. Moderate bilateral maxillary sinusitis. Enlargement of the right side of the sella 22, with a mass that is seen reduced compared to the old computed tomography scan of 10/26/2012 EKG is reported as atrial fibrillation. Left axis deviation. Right bundle branch block. Inferior infarct, age undetermined. Abnormal EKG. Initial serum glucose is not 3 which is normal. The calcium 9.2 which is normal. Review of Systems Review of system: The 12 point system was reviewed and apparent positive and negative per HPI. Past Medical History Past Medical History: Atrial Fibrillation, Diabetes Mellitus, Hyperlipidemia, Hypertension, Prostate Disorder History of Any Multi-Drug Resistant Organisms: None Reported Additional Past Surgical History / Comment(s): pitutary tumor removed Past Anesthesia/Blood Transfusion Reactions: No Reported Reaction Past Psychological History: No Psychological Hx Reported Smoking Status: Never smoker Past Alcohol Use History: Occasional Past Drug Use History: None Reported - Past Family History Father Family Medical History: Congestive Heart Failure (CHF), Myocardial Infarction (OR) Medications and Allergies Home Medications Medication Instructions Recorded Confirmed Type Ascorbic Acid [Vitamin C] 500 mg PO DAILY 04/29/15 06/10/20 History Cholecalciferol [Vitamin D3 (25 25 mcg PO DAILY 04/29/15 06/10/20 History Mcg = 1000 Iu)] Esomeprazole Magnesium [NexIUM] 40 mg PO DAILY 04/29/15 06/10/20 History Ezetimibe/Simvastatin [Vytorin 1 tab PO DAILY 04/29/15 06/10/20 History 10-40 mg Tablet] Tamsulosin [Flomax] 0.4 mg PO DAILY 04/29/15 06/10/20 History Warfarin [Coumadin] 2.5 mg PO SUMOTUTHSA 04/29/15 06/10/20 History atenoloL [Atenolol] 25 mg PO DAILY 04/29/15 06/10/20 History lisinopriL [Zestril] 20 mg PO DAILY 04/29/15 06/10/20 History Calcium Carbonate [Calcium] 300 mg PO DAILY 04/30/16 06/10/20 History Diltiazem Cd [Cardizem CD] 120 mg PO DAILY 06/10/20 06/10/20 History Latanoprost/Pf [Latanoprost 0.005% 1 drop BOTH EYES HS 06/10/20 06/10/20 History Eye Drop] Montelukast [Singulair] 10 mg PO HS 06/10/20 06/10/20 History Repaglinide [Prandin] 2 mg PO AC-BID 06/10/20 06/10/20 History Warfarin [Coumadin] 5 mg PO WEFR 06/10/20 06/10/20 History sitaGLIPtin PHOS/metFORMIN HCL 1 tab PO AC-BID 06/10/20 06/10/20 History [Janumet 50-500 mg Tablet] Allergies Allergy/AdvReac Type Severity Reaction Status Date / Time No Known Allergies Allergy Verified 06/10/20 09:09 Physical Examination - Vital Signs Vital Signs: Vital Signs Temp Pulse Pulse Resp BP BP Pulse Ox 06/10/20 08:15 97.6 F 85 16 169/93 98 06/10/20 08:00 85 16 06/10/20 04:00 98.1 F 66 18 146/68 94 L 06/10/20 01:03 97.4 F L 81 18 142/85 98 06/10/20 00:45 84 18 161/89 97 06/10/20 00:15 97.6 F 79 18 143/102 97 06/09/20 23:45 97.7 F 84 18 130/87 98 06/09/20 23:30 97.7 F 80 18 134/82 98 06/09/20 23:15 97.9 F 80 18 137/85 97 06/09/20 22:50 97.8 F 77 18 156/85 94 L Intake and Output 06/09/20 06/10/20 06/10/20 22:59 06:59 14:59 Other: # Voids 1 Weight 90.718 kg 93 kg GENERAL: The patient is lying in bed and is not in acute distress. CHEST: The heart rate is regular rate rhythm. No murmurs to auscultation. No carotid bruit bilaterally. LUNG: Clear to auscultation bilaterally no wheezing noted throughout. Not labored breathing. ABDOMEN/GI: Bowel sounds present in all 4 quadrants. No tenderness to palpation throughout. NEUROLOGICAL: Higher mental function: The patient is awake, alert, oriented to self, place and time. Patient is following commands. No aphasia and no neglect. Cranial nerves: Visual acuity is the on the right is 20/25 and on the left is 20/40 without correction. The pupils are round, equal and reactive to light and accommodation. Visual diaz is full to confrontation. Extraocular movement: On occasions I felt the patient was having difficulty to fully raise the right pupil upward otherwise the extraocular movement was intact. No nystagmus is not ed in any direction. No ptosis is noted. Facial sensation is normal to touch throughout. The facial strength is normal throughout. Hearing is moderately decreased l bilaterally to hand rub. Tongue is midline and moved [id number] without any difficulty. No dysarthria is noted. Shoulder shrug is normal bilaterally. Motor: Gait is normal. The strength is 5 over 5 throughout. Normal tone and bulk. Cerebellum: Normal finger to nose heel to duran bilaterally. Sensation: Sensation is normal to touch throughout. Reflexes (right/left): 2+ throughout. Plantars are downgoing bilaterally. Results Coagulation study: PT of 18.3, INR 1.9, PTT of 32.7. [place] virus PCR is nondetected - Laboratory Findings CBC and BMP: 06/09/20 23:14 06/09/20 23:14 Abnormal Lab Findings: Abnormal Labs 06/09/20 06/10/20 23:14 06:14 PT 18.3 H INR 1.9 H APTT 32.7 H POC Glucose (mg/dL) 129 H Assessment and Plan Assessment: This is a 80-year-old gentleman with medical history of hypertension, dyslipidemia, atrial fibrillation that presented emergency department on 06/09/2020 for acute diplopia that started around 8:30 pm on 06/09/20. He knows that he is having vertical diplopia which one object over the other and it lasted for about 3 hours and a half. NIH was a 1 for right superior rectus palsy. No TPA or thrombectomy. Transient vertical diplopia out of both eye. 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 Unsure exactly cause. Differentials are pituitary tumor expansion versus ocular myasthenia gravis History of pituitary tumor s/p resection Hypertension Dyslipidemia Atrial fibrillation on Coumadin Plan: CT of the head is reported as cerebral atrophy with mild progression compared to old exam. There is moderate bilateral maxillary sinusitis which is new compared to old exam. CT angiography of the head and neck was reported as there is some plaque formation and mild narrowing of the proximal left internal carotid artery. Mild plaque and calcification noted in the distal right vertebral artery. No significant intercranial and angiographic abnormality. Moderate bilateral maxillary sinusitis. Enlargement of the right side of the sella 22, with a mass that is seen reduced compared to the old computed tomography scan of 10/26/2012 Recommend MRI of the brain, MRI of the orbits as well as pituitary and and patient would like this to be done as an outpatient. Recommend the patient to follow-up with the auto machinist as an outpatient. Consider myasthenia gravis workup but will defer further workup to a neurologist as an outpatient. Patient was notified he needs to follow-up with a neurologist within 12 weeks as an outpatient. Currently the patient is on Coumadin for the atrial fibrillation. The patient was given aspirin 325 once in the ED. Patient is also on Lipitor 20 mg daily. There is no further workup needed at this time. Thank you for the consultation. Estuardo Mcmillan M.D. Neuro-hospitalist Time with Patient: Greater than 30
[2020-06-10] MEDS ORDERED: REPAGLINIDE 1 MG TAB PO SCH (17:30)
[2020-06-10] MEDS ORDERED: WARFARIN 2.5 MG TAB PO SCH (18:00)
[2020-06-10] MEDS ORDERED: WARFARIN 5 MG TAB PO ONE (18:00)
[2020-06-10] MEDS ORDERED: MONTELUKAST 10 MG TAB PO SCH (21:00)
[2020-06-10] MEDS ORDERED: LATANOPROST 0.005% OPHTH DROPS 2.5 ML BTL BOTH EYES SCH (21:00)
[2020-06-11] MEDS ORDERED: TAMSULOSIN 0.4 MG CAP.ER.24H PO SCH (09:00)
[2020-06-11] MEDS ORDERED: WARFARIN 2.5 MG TAB PO SCH (18:00)
== END 2020-06-10 14:29 | disposition home or self-care (01) | DRG 123 ==
LOC: EC 20:46 → 3SCARD 06-10 00:18 → OBSVTOIN 06-10 09:20
PROVIDERS: ADMIT Internal Medicine; ATTEND Internal Medicine
DX: H53.2 Diplopia (principal); I65.01 Occlusion and stenosis of right vertebral artery; E11.9 Type 2 diabetes mellitus without complications; G31.9 Degenerative disease of nervous system, unspecified; J32.0 Chronic maxillary sinusitis; E78.5 Hyperlipidemia, unspecified; I48.0 Paroxysmal atrial fibrillation; Z20.822 Contact with and (suspected) exposure to COVID-19; I65.22 Occlusion and stenosis of left carotid artery; G47.33 Obstructive sleep apnea (adult) (pediatric); I10 Essential (primary) hypertension; I45.10 Unspecified right bundle-branch block; K21.9 Gastro-esophageal reflux disease without esophagitis; N40.0 Benign prostatic hyperplasia without lower urinary tract symptoms; Z79.01 Long term (current) use of anticoagulants; Z79.899 Other long term (current) drug therapy; Z79.84 Long term (current) use of oral hypoglycemic drugs; Z86.39 Personal history of other endocrine, nutritional and metabolic disease; Z82.49 Family history of ischemic heart disease and other diseases of the circulatory system; Z98.890 Other specified postprocedural states
CPT/HCPCS: 36415; 70450; 70496; 70498; 80048; 85025; 85610; 85730; 87635; 93005; 96361; 96372; 96374; 96375; 96376; 99285

== ENCOUNTER 2020-10-29 10:14 | Day surgery (SDC) | payer MEDICARE ==
[2020-10-28 08:55] VITALS: BMI 31.9
[~2020-10-29 10:14] MED LIST: ALPRAZolam 0.25 MG TAB PO PRN; ALPRAZolam 0.5 MG TAB PO PRN; ASPIRIN 325 MG TAB PO STA; HEPARIN SODIUM,PORCINE 10,000 UNIT in SODIUM CHLORIDE 0.9% 1,000 ML IRRIGATION PRN; HEPARIN SODIUM,PORCINE 2,500 UNIT in SODIUM CHLORIDE 0.9% 250 ML IRRIGATION PRN; NITROGLYCERIN SL TABS 0.4 MG TAB SUBLINGUAL PRN; SODIUM CHLORIDE 0.9% 1,000 ML in EMPTY BAG 1 BAG IV ONE
[2020-10-29 10:39] LABS: Glucose,Whole Blood 131 mg/dL (75-99)
[2020-10-29 10:54] LABS: Basophils # (A) 0.1 k/uL (0-0.2); Basophils % (A) 1 %; Eosinophils # (A) 0.1 k/uL (0-0.7); Eosinophils % (A) 1 %; HCT 47.5 % (39.0-53.0); HGB 16.5 gm/dL (13.0-17.5); Lymphocytes # (A) 2.4 k/uL (1.0-4.8); Lymphocytes % (A) 27 %; MCH 31.7 pg (25.0-35.0); MCHC 34.7 g/dL (31.0-37.0); MCV 91.3 fL (80.0-100.0); Mean Platelet Volume 7.7; Monocytes # (A) 0.6 k/uL (0-1.0); Monocytes % (A) 7 %; Neutrophils # (A) 5.4 k/uL (1.3-7.7); Neutrophils % (A) 61 %; Platelet Count 200 k/uL (150-450); RDW 13.9 % (11.5-15.5); WBC 8.8 k/uL (3.8-10.6)
[2020-10-29 11:02] LABS: INR 1.3 (<1.2)
[2020-10-29 11:15] LABS: Calcium 9.7 mg/dL (8.4-10.2); Potassium 4.5 mmol/L (3.5-5.1)
[2020-10-29] MEDS ORDERED: fentaNYL (PF) 50 MCG/ML 2 ML AMP IV ONE (12:49)
[2020-10-29] MEDS ORDERED: LIDOCAINE 1% INJ 10MG/ML (20 ML MDV) SQ ONE (12:52)
[2020-10-29] MEDS ORDERED: VERAPAMIL SYRINGE (5 MG/10 ML) INTRAARTER ONE (12:54)
[2020-10-29] MEDS ORDERED: IOPAMIDOL-370 125ML BTL INJ ONE (13:06)
[2020-10-29] MEDS ORDERED: RX INFO: IV CONTRAST WAS GIVEN 1 EACH MISC MISCELLANE PRN (13:25)
[2020-10-29] MEDS ORDERED: SODIUM CHLORIDE 0.9% 1,000 ML IV SCH (13:30)
--- NOTE | 2020-10-29 13:50 | CC ---
CARDIAC CATHETERIZATION REPORT Mr. Valero is a 80-year-old male with a known history of coronary artery disease, status post percutaneous revascularization in 2006, history of hypertension, hyperlipidemia and diabetes mellitus as well as chronic persistent atrial fibrillation, who recently has been complaining of progressive dyspnea on exertion and occasional chest discomfort. In view of that, recommendation was made regarding cardiac catheterization. The procedure as well as its risks and complications were discussed with the patient, who was in full understanding and agreement. PROCEDURE: Patient was brought to the laboratory monitor in a fasting semi-sedated state after receiving fentanyl and Benadryl and achieving a moderate conscious sedated state. Using Xylocaine anesthesia and Seldinger technique, a 6-Romanian sheath was introduced into the right radial artery. Selective right and left coronary angiography was performed using 5-Romanian, 3.5 bend right and left Wilder catheters. Multiple views were taken of the coronary arteries, including hemiaxial views. Following that, a 5-Romanian tight pigtail catheter was introduced into the left ventricle and a 30-degree VIERA view of the left ventricle was obtained. Following that, catheter and sheath were removed. Hemostasis was obtained with deployment of a TR band. There was no immediate complication. Patient was returned to his room in stable condition. Of note, the patient received 5000 units of intravenous heparin as well as intra-arterial verapamil. FINDINGS: FLUOROSCOPY: There was severe calcification involving all the coronary arteries. LEFT MAIN: This is a large-sized vessel bifurcating into left circumflex and left anterior descending artery. Left main coronary artery has no evidence of high- grade stenosis. LEFT ANTERIOR DESCENDING ARTERY: This vessel has an about 90% stenosis proximally. After the takeoff of 2 diagonal branches it has a 99% stenosis, and then at the distal edge of the stented segment, there is 100% stenosis with a very slow filling of the distal vessel. LEFT CIRCUMFLEX: This is a nondominant vessel, moderate in caliber, giving rise to 2 obtuse marginal branches. Prior to the takeoff of the first obtuse marginal branch there is an eccentric 90% stenosis. The first obtuse marginal branch has no high-grade stenosis. The second obtuse marginal branch has a 99% stenosis. RIGHT CORONARY ARTERY: This is a large dominant vessel bifurcating distally into PDA and posterolateral segment and branches. The right coronary artery in the mid segment has a tubular lesion of 60-70%. There is diffuse intimal disease distally. There is an eccentric plaque proximally of about 40%. The rest of the vessel has no high- grade stenosis. LEFT VENTRICULOGRAM: Left ventriculogram was performed in 30-degree VIERA view and revealed normal left ventricular size and systolic function. Ejection fraction is 60%. There was no significant mitral regurgitation. HEMODYNAMICS: There was no gradient across the aortic valve. The left ventricular end- diastolic pressure was 14 to 18 mmHg. CONCLUSION: 1. Heavily calcified coronary arteries. 2. Severe triple-vessel coronary artery disease. RECOMMENDATIONS: In view of findings and anatomy and multiple risk factors, I have recommended proceeding with evaluation for possible coronary artery bypass grafting. The rationale behind the findings was discussed with the patient and his family, and they are in full understanding and agreement. Duration of sedation was 22 minutes. KRZYSZTOF / GWEN: [id number] / MTDBarbie
--- NOTE | 2020-10-29 13:54 | LTR ---
October 29, 2020 To: Dr. Campos Re: Jorje Valero (44) Dear Dr. Campos, I had the pleasure of performing cardiac catheterization on Mr. Valero at [facility] on October 29, 2020. A full copy of the procedure note will be forwarded to you. In brief, he was found to have severe triple-vessel coronary artery disease with severely calcified coronary arteries. Because of that and because of his risk factors, I have recommended proceeding with evaluation for coronary artery bypass grafting. I will keep you updated on his progress. Thank you again for allowing me to participate in this patient's care. Please feel free to call with any questions. Sincerely, Rachael Mullins M.D. KRZYSZTOF / GWEN: [id number] /
--- NOTE | 2020-10-29 15:21 | P.GSCN ---
History of Present Illness Consult date: 10/29/20 Reason for Consult: Triple-vessel coronary artery disease Requesting physician: Rachael Mullins History of present illness: This is a 80-year-old active gentleman who follows on an outpatient basis with Dr. Campos for primary care and Dr. Mullins for cardiology. He has a previous medical history of coronary artery disease with PCI to the LAD in 2005, hypertension, hyperlipidemia, chronic atrial fibrillation on Coumadin for anticoagulation, obstructive sleep apnea on home CPAP, previous pituitary tumor, diet controlled diabetes, daily wine consumption, never smoker, and family history of premature coronary artery disease with father diagnosed before the age of 55. Over the last several weeks the patient describes symptoms of progressive dyspnea on exertion, increased fatigue, and increased tiredness that he states started when we had humid weather last month. He denies any chest pain, nausea, vomiting, diaphoresis, or any other symptomatology. Due to the concern for progression of coronary artery disease he underwent elective heart catheterization today by Dr. Mullins which demonstrated proximal LAD stenosis 90%, 99% stenosis after the takeoff of 2 diagonal branches, 100% stenosis at the distal end of his previous stent, 90% stenosis to the circumflex coronary artery prior to the takeoff of the first obtuse marginal branch, second obtuse marginal branch with 99% stenosis, and mid RCA stenosis 67%. LV gram was also performed demonstrating normal left ventricular size and function with EF 60%, no mitral regurgitation. There was no gradient across the aortic valve. Due to findings on heart catheterization consultation was placed to Dr. Amos for surgical revascularization recommendations. Review of Systems Review of systems was completed and was negative except as noted in the HPI - Cardiovascular Reports as per HPI, Reports decreased exercise tolerance, Reports dyspnea on exertion Past Medical History Past Medical History: Atrial Fibrillation, Diabetes Mellitus, Hyperlipidemia, Hypertension, Prostate Disorder History of Any Multi-Drug Resistant Organisms: None Reported Past Surgical History: Heart Catheterization With Stent, Tonsillectomy Additional Past Surgical History / Comment(s): pitutary tumor removed Past Anesthesia/Blood Transfusion Reactions: No Reported Reaction Date of Last Stent Placement:: 2005 Past Psychological History: No Psychological Hx Reported Smoking Status: Never smoker Past Alcohol Use History: Daily Additional Past Alcohol Use History / Comment(s): Daily wine Past Drug Use History: None Reported - Past Family History Father Family Medical History: Congestive Heart Failure (CHF), Coronary Artery Disease (CAD), Myocardial Infarction ([place]) Additional Family Medical History / Comment(s): Premature coronary artery disease, CABG Mother Additional Family Medical History / Comment(s): Depression, committed suicide Medications and Allergies Home Medications Medication Instructions Recorded Confirmed Type Ascorbic Acid [Vitamin C] 500 mg PO DAILY 04/29/15 10/29/20 History Cholecalciferol [Vitamin D3 (25 25 mcg PO DAILY 04/29/15 10/29/20 History Mcg = 1000 Iu)] Esomeprazole Magnesium [NexIUM] 40 mg PO DAILY 04/29/15 10/29/20 History Ezetimibe/Simvastatin [Vytorin 1 tab PO DAILY 04/29/15 10/29/20 History 10-40 mg Tablet] Warfarin [Coumadin] 2.5 mg PO SUMOTUTHSA 04/29/15 10/29/20 History atenoloL 25 mg PO DAILY 04/29/15 10/29/20 History lisinopriL [Zestril] 20 mg PO DAILY 04/29/15 10/29/20 History Calcium Carbonate [Calcium] 300 mg PO DAILY 04/30/16 10/29/20 History Diltiazem Cd [Cardizem CD] 120 mg PO DAILY 06/10/20 10/29/20 History Latanoprost/Pf [Latanoprost 0.005% 1 drop BOTH EYES HS 06/10/20 10/29/20 History Eye Drop] Montelukast [Singulair] 10 mg PO HS 06/10/20 10/29/20 History Warfarin [Coumadin] 5 mg PO WEFR 06/10/20 10/29/20 History Allergies Allergy/AdvReac Type Severity Reaction Status Date / Time No Known Allergies Allergy Verified 10/29/20 10:25 Surgical - Exam Vital Signs Temp Pulse Resp BP Pulse Ox 98.1 F 83 18 142/82 93 L 10/29/20 10:34 10/29/20 10:34 10/29/20 10:34 10/29/20 10:34 10/29/20 10:34 CONSTITUTIONAL: Awake and alert, appears comfortable, cooperative, well- developed, well-nourished, no pain, no acute distress EYES: Pupils equal, round, reactive to light, normal ocular movement ENT: Moist mucous membranes without oral lesions present NECK: No masses, no bruits, trachea midline RESPIRATORY: Lungs sounds clear to auscultation bilaterally. Respirations even, nonlabored. Currently on room air with oxygen saturation 97%. Strong cough. No chest wall deformities. No clubbing or cyanosis present CARDIOVASCULAR: S1, S2 present. Irregular rate and rhythm, controlled atrial fibrillation on telemetry. Palpable peripheral pulses bilaterally. No edema present. No calf pain or tenderness noted. No significant lower extremity varicosities noted. GASTROINTESTINAL: Abdomen soft, nontender, nondistended without masses or organomegaly noted. There is no rebound or guarding present. Active bowel sounds present 4 quadrants. GENITOURINARY: Deferred INTEGUMENTARY: Skin is warm and dry with evidence of good perfusion. NEUROLOGIC: Cranial nerves II through XII intact, normal coordination, no obvious motor or sensory deficits, speech is normal MUSKULOSKELETAL: Able to move all extremities, strength equal bilaterally, normal posture PSYCHIATRIC: Alert and oriented to person place and time, appropriate affect, intact judgment and insight Results - Labs 10/29/20 10:25 10/29/20 10:25 Abnormal Lab Results - Last 24 Hours (Table) 10/29/20 10/29/20 10/29/20 Range/Units 10:25 10:25 10:32 PT 13.0 H (9.0-12.0) sec INR 1.3 H (<1.2) BUN 23 H (9-20) mg/dL Glucose 135 H (74-99) mg/dL POC Glucose (mg/dL) 131 H (75-99) mg/dL Diabetes panel 10/29/20 Range/Units 10:25 Sodium 141 (137-145) mmol/L Potassium 4.5 (3.5-5.1) mmol/L Chloride 106 (98-107) mmol/L Carbon Dioxide 22 (22-30) mmol/L BUN 23 H (9-20) mg/dL Creatinine 1.11 (0.66-1.25) mg/dL Glucose 135 H (74-99) mg/dL Calcium 9.7 (8.4-10.2) mg/dL Calcium panel 10/29/20 Range/Units 10:25 Calcium 9.7 (8.4-10.2) mg/dL Pituitary panel 10/29/20 Range/Units 10:25 Sodium 141 (137-145) mmol/L Potassium 4.5 (3.5-5.1) mmol/L Chloride 106 (98-107) mmol/L Carbon Dioxide 22 (22-30) mmol/L BUN 23 H (9-20) mg/dL Creatinine 1.11 (0.66-1.25) mg/dL Glucose 135 H (74-99) mg/dL Calcium 9.7 (8.4-10.2) mg/dL Adrenal panel 10/29/20 Range/Units 10:25 Sodium 141 (137-145) mmol/L Potassium 4.5 (3.5-5.1) mmol/L Chloride 106 (98-107) mmol/L Carbon Dioxide 22 (22-30) mmol/L BUN 23 H (9-20) mg/dL Creatinine 1.11 (0.66-1.25) mg/dL Glucose 135 H (74-99) mg/dL Calcium 9.7 (8.4-10.2) mg/dL - Imaging Additional studies: Heart catheterization films reviewed Assessment and Plan Assessment: 1. Triple-vessel coronary artery disease with previous PCI to the LAD in 2005 2. Hypertension 3. Hyperlipidemia 4. Chronic atrial fibrillation on Coumadin for anticoagulation 5. Obstructive sleep apnea on home CPAP 6. Previous pituitary tumor 7. Diet controlled diabetes 8. Daily wine consumption 9. Never smoker 10. Family history of premature coronary artery disease Plan: The patient was seen and examined at the bedside. Chart/diagnostics were reviewed. The case was discussed with Dr. Amos from cardiothoracic surgery. The usual ovidio-operative course of open heart surgery was briefly discussed with the patient and his , all questions were answered. The patient flat out states he does not want open heart surgery regardless of the outcomes. Discussion was had with the patient and his that his coronary artery disease is critical and that the recommendation for disease of this nature is bypass surgery. When asked if the patient was told he would tomorrow without surgery he stated that he was at peace with that, and continued to refuse surgical option. His was at the bedside and stated that she and her children would like him to explore surgical option but he stated he does not want surgery. Offer was made for testing to be completed in case he changes his mind, the patient does not want any preoperative testing ordered. Our contact information was left with the patient should he change his mind. We will check back with the patient tomorrow after a period of reflection to answer any questions he may have. The patient's decision was discussed with Dr. Mullins. Thank you Dr. Mullins for this consult. Please call us with any further questions or if the patient changes his mind regarding surgery. Time with Patient: Greater than 30
[2020-10-29] MEDS ORDERED: MONTELUKAST 10 MG TAB PO SCH (21:00)
[2020-10-29] MEDS ORDERED: LATANOPROST 0.005% OPHTH DROPS 2.5 ML BTL BOTH EYES SCH (21:00)
[2020-10-30 06:26] LABS: African American GFR (CKD) 87 (>60 ml/min/1.73 sqM); Anion Gap 9 mmol/L; Blood Urea Nitrogen 17 mg/dL (9-20); Calcium 9.1 mg/dL (8.4-10.2); Carbon Dioxide 21 mmol/L (22-30); Chloride 107 mmol/L (98-107); Glucose 124 mg/dL (74-99); Non-African American GFR(CKD) 75 (>60 ml/min/1.73 sqM); Potassium 4.3 mmol/L (3.5-5.1); Sodium 137 mmol/L (137-145)
--- NOTE | 2020-10-30 07:56 | PN ---
PROGRESS NOTE Mr. Valero is a 80-year-old male known history of chronic persistent atrial fibrillation, history of coronary disease, hypertension, hyperlipidemia, diabetes mellitus, who presented with symptoms of progressive dyspnea and chest discomfort. He underwent a coronary angiography that revealed evidence of severe triple-vessel coronary artery disease. He is doing well this morning. He denies any symptoms of chest pain. He denies any dizziness or palpitation. Recommendation made regarding coronary artery bypass grafting. Patient would like to think about it further at this point. He continues to be in atrial fibrillation on the monitor and continues to be on Singulair 10 mg daily, Zestril 20 mg once a day, isosorbide mononitrate 30 mg daily, Zetia 10 mg daily, diltiazem CD 120 mg daily, atorvastatin 20 mg daily, atenolol 25 mg daily, and aspirin 81 mg daily. PHYSICAL EXAMINATION: Blood pressure 122/50 with a heart in the 60s. Lungs: Clear. Heart irregular regular S1, S2. No S3 with systolic murmur heard at the base. No diastolic murmur no rub. Abdomen: Soft nontender. Extremities: No edema. Right radial pulse intact. LAB DATA: Lab data revealed BUN and creatinine 17 and 0.97. Potassium 4.3. IMPRESSION: 1. Severe triple-vessel coronary disease, asymptomatic. 2. Prior stenting of the LAD. 3. Hypertension. 4. Hyperlipidemia. 5. Diabetes mellitus. 6. Chronic persistent atrial fibrillation. RECOMMENDATION: Patient will be discharged home today and will be seen in the office next week to further discuss the plan of treatment and the options. Depending on his decision, further recommendation will be made. MMODL / IJN: [id number] /
[2020-10-30 08:30] VITALS: BP 146/84; PULSE 86; RESP 18; TEMP 98
--- NOTE | 2020-10-30 08:37 | P.PN ---
Subjective Progress Note Date: 10/30/20 Principal diagnosis: Triple-vessel coronary artery disease with previous PCI to the LAD in 2005. Previous medical history of hypertension, hyperlipidemia, chronic atrial fibrillation on Coumadin for anticoagulation, obstructive sleep apnea on home CPAP, previous pituitary tumor status post resection, diet controlled diabetes, daily wine consumption, never smoker, and family history of premature coronary artery disease The patient is currently sitting up in a chair in the observation unit in no acute distress. Denies any chest pain or shortness of breath. States he has been ambulatory in the room without difficulty. Yesterday he was adamant that he did not want cardiac surgery, however this morning he is willing to consider this as an option. He states he has a meeting set up next week with Dr. Mullins in his office to discuss further. All questions were answered to the best my ability. The patient does have our contact information and was encouraged to call to set up an appointment to discuss and potentially schedule surgery if he is agreeable after discussing with Dr. Mullins. The patient will need preoperative testing including echocardiogram, carotid Doppler, pulmonary function test, vein mapping, and lab work prior to surgery. Objective - Vital Signs Vital signs: Vital Signs Temp 97.4 F L 10/30/20 02:00 Pulse 63 10/30/20 02:00 Resp 17 10/30/20 02:00 BP 122/58 10/30/20 02:00 Pulse Ox 98 10/30/20 02:00 Intake & Output 10/29/20 10/30/20 10/30/20 18:59 06:59 18:59 Intake Total 625 200 Balance 625 200 Weight 89.811 kg Intake: IV 625 Oral 200 Other: Voiding Method Toilet # Voids 2 - Exam CONSTITUTIONAL: Appears comfortable, cooperative, no acute distress RESPIRATORY: Lungs sounds clear bilaterally. Respirations even, nonlabored. Currently on room air with oxygen saturation 99%. CARDIOVASCULAR: S1, S2 present. Irregular rate and rhythm. Palpable pe ripheral pulses bilaterally. No edema present. GASTROINTESTINAL: Abdomen soft, nontender, nondistended. Active bowel sounds present 4 quadrants. Tolerating diet. GENITOURINARY: Continues to void INTEGUMENTARY: Skin is warm and dry with evidence of good perfusion. NEUROLOGIC: Cranial nerves II through XII intact MUSKULOSKELETAL: Able to move all extremities, strength equal bilaterally, gait normal PSYCHIATRIC: Alert and oriented to person place and time, appropriate affect, intact judgment and insight - Labs CBC & Chem 7: 10/29/20 10:25 10/30/20 05:27 Labs: Abnormal Lab Results - Last 24 Hours (Table) 10/29/20 10/29/20 10/29/20 Range/Units 10:25 10:25 10:32 PT 13.0 H (9.0-12.0) sec INR 1.3 H (<1.2) Carbon Dioxide (22-30) mmol/L BUN 23 H (9-20) mg/dL Glucose 135 H (74-99) mg/dL POC Glucose (mg/dL) 131 H (75-99) mg/dL 10/30/20 Range/Units 05:27 PT (9.0-12.0) sec INR (<1.2) Carbon Dioxide 21 L (22-30) mmol/L BUN (9-20) mg/dL Glucose 124 H (74-99) mg/dL POC Glucose (mg/dL) (75-99) mg/dL Assessment and Plan Assessment: 1. Triple-vessel coronary artery disease with previous PCI to the LAD in 2005 2. Hypertension 3. Hyperlipidemia 4. Chronic atrial fibrillation on Coumadin for anticoagulation 5. Obstructive sleep apnea on home CPAP 6. Previous pituitary tumor status post resection 7. Diet controlled diabetes 8. Daily wine consumption 9. Never smoker 10. Family history of premature coronary artery disease Plan: 1. Continue to maximize medical therapy with aspirin, statin, beta junito 2. Patient has been given our contact information, if he does agree to surgical revascularization he may contact our office to schedule an appointment to further discuss and schedule surgery 3. Patient will need preoperative testing completed including carotid Doppler, pulmonary function test, echocardiogram, vein mapping, and lab work, which we will be happy to schedule if the patient agrees to surgery 4. Once preoperative testing has been completed STS risk score will be calculated and discussed with the patient and his family 5. Medical management with her comorbidities per Dr. Mullins and Dr. Campos 6. More recommendations to follow once patient makes final decision Time with Patient: Greater than 30
[2020-10-30] MEDS ORDERED: EZETIMIBE 10 MG TAB PO SCH (09:00)
[2020-10-30] MEDS ORDERED: ISOSORBIDE MONONITRATE ER 30 MG TAB.ER.24H PO SCH (09:00)
[2020-10-30] MEDS ORDERED: ASPIRIN 81 MG PO SCH (09:00)
[2020-10-30] MEDS ORDERED: lisinopriL 20 MG TAB PO SCH (09:00)
[2020-10-30] MEDS ORDERED: ATORVASTATIN 20 MG TAB PO SCH (09:00)
[2020-10-30] MEDS ORDERED: atenoloL 25 MG TAB PO SCH (09:00)
[2020-10-30] MEDS ORDERED: DILTIAZEM CD 120 MG CAP.ER.24H PO SCH (09:00)
== END 2020-10-30 11:10 | disposition home or self-care (01) ==
LOC: CATHCVL 10:14 → 6NMEDSUR 14:18 → CATHCVL 10-30 11:10
PROVIDERS: ATTEND Internal Medicine Interventional Cardiology
DX: I25.10 Atherosclerotic heart disease of native coronary artery without angina pectoris (principal); I25.84 Coronary atherosclerosis due to calcified coronary lesion; I25.82 Chronic total occlusion of coronary artery; T82.855A Stenosis of coronary artery stent, initial encounter; I48.19 Other persistent atrial fibrillation; Y83.8 Other surgical procedures as the cause of abnormal reaction of the patient, or of later complication, without mention of misadventure at the time of the procedure; Z79.01 Long term (current) use of anticoagulants; Z82.49 Family history of ischemic heart disease and other diseases of the circulatory system; I10 Essential (primary) hypertension; E11.9 Type 2 diabetes mellitus without complications; Z79.899 Other long term (current) drug therapy; I08.1 Rheumatic disorders of both mitral and tricuspid valves; E78.2 Mixed hyperlipidemia; I25.2 Old myocardial infarction
CPT/HCPCS: 93458; 80048 ×2; 85025; 85610; C1894; C1769; J2001; J3010; J1644; Q9967

== ENCOUNTER → 2020-11-21 | Outpatient (CLI) | payer MEDICARE ==
[2020-11-21 14:50] LABS: Appearance,Urine Clear (Clear); Bilirubin,Urine Negative (Negative); Blood,Urine Negative (Negative); Color,Urine Yellow; Glucose,Urine (UA) Negative (Negative); Ketones,Urine Negative (Negative); Leukocyte Esterase,Urine Negative (Negative); Nitrite,Urine Negative (Negative); PH, Urine 5.5 (5.0-8.0); Protein,Urine Negative (Negative)
[2020-11-21 23:21] LABS: Basophils # (A) 0.05 X 10*3/uL (0.00-0.10); Basophils % (A) 0.7 %; Eosinophils # (A) 0.09 X 10*3/uL (0.04-0.35); Eosinophils % (A) 1.2 %; HCT 42.1 % (39.6-50.0); HGB 14.2 g/dL (13.0-17.0); Lymphocytes # (A) 1.66 X 10*3/uL (0.90-5.00); Lymphocytes % (A) 21.6 %; MCH 30.6 pg (27.0-32.0); MCHC 33.7 g/dL (32.0-37.0); MCV 90.7 fL (80.0-97.0); Mean Platelet Volume 10.4 fL (9.5-12.2); Monocytes # (A) 0.62 X 10*3/uL (0.20-1.00); Monocytes % (A) 8.1 %; Neutrophils # (A) 5.22 X 10*3/uL (1.80-7.70); Platelet Count 183 X 10*3/uL (140-440); RBC 4.64 X 10*6/uL (4.40-5.60); WBC 7.67 X 10*3/uL (4.50-10.00)
[2020-11-22 00:32] LABS: INR 1.75 (0.90-1.11); Prothrombin Time 18.4 sec (9.9-11.9)
[2020-11-22 05:23] LABS: African American GFR (CKD) 74.1 (60.0-200.0); Albumin 4.2 g/dL (3.80-4.90); Albumin/Globulin Ratio 2.1 (1.60-3.17); Anion Gap 9.4 mmol/L (4.00-12.00); BUN/Creat Ratio 17.27 Ratio (12.00-20.00); Calcium 9.1 mg/dL (8.7-10.3); Carbon Dioxide 25.6 mmol/L (21.6-31.8); Chol/HDL Ratio 3.73; LDL Cholesterol,Calculated 53.8 mg/dL (0.0-131.0); Magnesium 1.8 mg/dL (1.5-2.4); Potassium 4.4 mmol/L (3.5-5.5); Total Bilirubin 0.9 mg/dL (0.2-1.2); Total Protein 6.2 g/dL (6.2-8.2); VLDL Calculation 36.2 mg/dL (5.00-40.00)
[2020-11-22 06:26] LABS: Hepatitis A Antibody IgM Non-Reactive (Non-Reactive); Hepatitis B Core IgM Non-Reactive (Non-Reactive); Hepatitis B Surface Antibody Non-Reactive (Non-Reactive); Hepatitis B Surface Antigen Non-Reactive (Non-Reactive); Hepatitis C IgG Antibody Non-Reactive (Non-Reactive)
== END | disposition home or self-care (01) ==
LOC: LABWHC1 13:49
PROVIDERS: ATTEND Surgery
DX: E11.9 Type 2 diabetes mellitus without complications (principal); I25.10 Atherosclerotic heart disease of native coronary artery without angina pectoris; I11.9 Hypertensive heart disease without heart failure
CPT/HCPCS: 36415; 80053; 80061; 81003; 83036; 83735; 84443; 85025; 85610; 86705; 86706; 86709; 86803; 87086; 87340

== ENCOUNTER → 2020-11-21 | Outpatient (CLI) | payer MEDICARE ==
--- NOTE | 2020-11-21 15:18 | US ---
EXAMINATION TYPE: US carotid duplex BILAT DATE OF EXAM: 11/21/2020 COMPARISON: NONE CLINICAL HISTORY: I25.10 Atherosclerotic heart disease of [place]. pre op cardiac surgery EXAM MEASUREMENTS: RIGHT: Peak Systolic Velocity (PSV) cm/sec ----- Right CCA: 41.7 ----- Right ICA: 93.4 ----- Right ECA: 154.4 ICA/CCA ratio: 2.2 RIGHT: End Diastole cm/sec ----- Right CCA: 9.7 ----- Right ICA: 18.0 ----- Right ECA: 17.1 LEFT: Peak Systolic Velocity (PSV) cm/sec ----- Left CCA: 47.4 ----- Left ICA: 83.1 ----- Left ECA: 111.7 ICA/CCA ratio: 1.8 LEFT: End Diastole cm/sec ----- Left CCA: 11.1 ----- Left ICA: 16.0 ----- Left ECA: 10.6 VERTEBRALS (direction of flow): Right Vertebral: Antegrade Left Vertebral: Antegrade Rhythm: Normal Mild to moderate plaque bilateral bifurcations. increased velocities right ECA. tortuous right ICA IMPRESSION: No evidence for hemodynamically significant stenosis. NASCET criteria was used in interpretation of this exam? Criteria for Assigning % of Stenosis / Diameter reduction (Estimation based on the indirect measurements of the internal carotid artery velocities (ICA PSV). 1. Normal (no stenosis)=ICA PSV < 125 cm/s: ratio < 2.0: ICA EDV<40 cm/s. 2. Less than 50% stenosis=ICA PSV < 125 cm/s: ratio < 2.0: ICA EDV<40 cm/s. 3. 50 to 69% stenosis=ICA PSV of 125 to 230 cm/s: ration 2.0 ? 4.0: ICA EDV 40-100 cm/s. 4. Greater than 70% stenosis to near occlusion= ICA PSV > 230 cm/s: ratio > 4.0: ICA EDV > 100 cm/s. 5. Near occlusion= ICA PSV velocities may be low or undetectable: variable ratio and ICA EDV. 6. Total occlusion=unable to detect flow.
--- NOTE | 2020-11-26 14:03 | P.VSCSTY ---
Greater Saphenous Vein Mapping This is bilateral lower extremity greater saphenous vein mapping. Date of service: 11/21/2020 Vein quality and ultrasound appearance: We see no intraluminal thrombus or obvious wall changes. Vein size groin right : 7.3 x 8 groin left: 7.6 x 6.4 High thigh right: 4.7 x 3.8 high thigh left: 4.4 x 3.7 Mid thigh right: 5.1 x 3.8 mid thigh left: 4.8 x 3.3 Above-knee right: 3.9 x 3.1 above- knee left: 3.6 x 2.6 Below knee right: 2.8 x 1.8 below-knee left: 4.0 x 2.7 Mid calf right: 2.4 x 2.0 mid calf left: 3.6 x 2.7 Ankle right: 2.8 x 2.1 ankle left: 4.3 x 3.4 Impression: Usable bilateral greater saphenous vein. The left appears to be a bit more consistent..
--- NOTE | 2020-11-26 15:07 | P.ARTDOP ---
Arterial Doppler Bilateral radial artery studies Date of studies 11/21/2020 Reason for study: Preop CABG Findings: Doppler assessment shows no significant right to left or segmental pressure gradient. With digital plethysmography, on the right there is a 65 mmHg change on radial artery compression. On the left there is no significant change. Imaging shows a proximal area to be 2.7 x 2.5 mm, mid 3.5 x 2.6 mm, distal 2.7 x 2.6 mm on the right. On the left proximal is 3.6 x 2.6 mm, mid 3.6 x 2.8 mm, distal 2.7 x 2.5 mm. Impression: The right radial artery does not meet criteria and for use based on significant pressure changes on radial artery compression. The left appears to be a suitable conduit.
== END | disposition home or self-care (01) ==
LOC: RADUSWWP 12:22
PROVIDERS: ATTEND Surgery
DX: Z01.818 Encounter for other preprocedural examination (principal); I25.10 Atherosclerotic heart disease of native coronary artery without angina pectoris
CPT/HCPCS: 93880; 93923; 93930; 93970

== ENCOUNTER → 2020-12-08 | Outpatient (CLI) | payer MEDICARE ==
--- NOTE | 2020-12-08 09:52 | P.PN ---
Progress Note - Text Progress Note Date: 12/08/20 5 meter walk test completed: #1 4.15 sec #2 3.83 sec #3 4.24 sec Patient completed without difficulty
[2020-12-08 09:57] LABS: HCT 43.2 % (39.0-53.0); HGB 14.5 gm/dL (13.0-17.5); MCH 30.7 pg (25.0-35.0); MCHC 33.6 g/dL (31.0-37.0); MCV 91.5 fL (80.0-100.0); Mean Platelet Volume 7.4; Platelet Count 164 k/uL (150-450); RBC 4.72 m/uL (4.30-5.90); RDW 12.9 % (11.5-15.5); WBC 6.7 k/uL (3.8-10.6)
[2020-12-08 10:05] LABS: INR 2.9 (<1.2); Partial Thromboplastin Time 36.6 sec (22.0-30.0); Prothrombin Time 27.7 sec (9.0-12.0)
[2020-12-08 10:27] LABS: Albumin 3.8 g/dL (3.5-5.0); Calcium 9.4 mg/dL (8.4-10.2); Potassium 4.6 mmol/L (3.5-5.1); Total Bilirubin 0.9 mg/dL (0.2-1.3); Total Protein 6.5 g/dL (6.3-8.2)
--- NOTE | 2020-12-08 10:56 | XR ---
EXAMINATION TYPE: XR chest 2V DATE OF EXAM: 12/08/2020 COMPARISON: NONE HISTORY: Presurgical study TECHNIQUE: Frontal and lateral views of the chest are obtained. FINDINGS: Bilateral mild chronic parenchymal changes including mild bibasilar linear scarring and/or atelectasis. There is no suspicious focal air space opacity, pleural effusion, or pneumothorax seen. The cardiac silhouette size is upper limits of normal with atherosclerotic aortic knob. The [place]se[place] us structures are intact. IMPRESSION: No acute process.
== END | disposition home or self-care (01) ==
LOC: LABPAT 09:01
PROVIDERS: ATTEND Surgery
DX: Z01.818 Encounter for other preprocedural examination (principal); I10 Essential (primary) hypertension; I48.91 Unspecified atrial fibrillation; I45.10 Unspecified right bundle-branch block; I25.10 Atherosclerotic heart disease of native coronary artery without angina pectoris; E78.5 Hyperlipidemia, unspecified; E11.9 Type 2 diabetes mellitus without complications; R94.31 Abnormal electrocardiogram [ECG] [EKG]
CPT/HCPCS: 36415; 71046; 80053; 85027; 85610; 85730; 87070; 93005

== ENCOUNTER 2020-12-16 05:44 | Inpatient (IN) | payer MEDICARE ==
[~2020-12-16 05:44] MED LIST changes: +ALBUMIN HUMAN 25% 50 ML IV ONE; +ALBUMIN HUMAN 5% 500 ML IVPB ONE; -ALPRAZolam 0.25 MG TAB PO PRN; -ALPRAZolam 0.5 MG TAB PO PRN; +ASPIRIN 325 MG TAB PO ONE; -ASPIRIN 325 MG TAB PO STA; +ATORVASTATIN 10 MG TAB PO ONE; +CALCIUM CHLORIDE 100 MG/ML 10 ML SYRINGE IV ONE; +CLEVIDIPINE BUTYRATE 25 MG in EMPTY BAG 1 BAG IV ONE; +DEXAMETHASONE SOD PHOSPHATE 4 MG/ML 1 ML VIAL IV ONE; +DILTIAZEM 125 MG in SODIUM CHLORIDE 0.9% 100 ML IV ONE; +ELECTROLYTE-A SOLUTION 1,000 ML with POTASSIUM CHLORIDE 100 MEQ, MAGNESIUM SULFATE 16 M... IV ONE; +ELECTROLYTE-A SOLUTION 1,000 ML with POTASSIUM CHLORIDE 40 MEQ, MAGNESIUM SULFATE 16 ME... IV ONE; +HEPARIN SODIUM 1,000 UN/ML (10ML VL) IV ONE; -HEPARIN SODIUM,PORCINE 10,000 UNIT in SODIUM CHLORIDE 0.9% 1,000 ML IRRIGATION PRN; -HEPARIN SODIUM,PORCINE 2,500 UNIT in SODIUM CHLORIDE 0.9% 250 ML IRRIGATION PRN; +HEPARIN SODIUM,PORCINE 5,000 UNIT in SODIUM CHLORIDE 0.9% 500 ML 500 ML IV ONE; +INSULIN REGULAR 100 UNIT in SODIUM CHLORIDE 0.9% 100 ML IV ONE; +LACTATED RINGERS 1,000 ML IV ONE; +LACTATED RINGERS 1,000 ML IV SCH; +MAGNESIUM SULFATE MG 500 MG/ML IV ONE; +MANNITOL 25% 12.5 GM/50 ML VIAL IV ONE; +METOPROLOL TARTRATE 12.5 MG TAB PO ONE; -NITROGLYCERIN SL TABS 0.4 MG TAB SUBLINGUAL PRN; +NITROGLYCERIN-D5W PMX 25 MG/250 ML BTL IV ONE; +NITROGLYCERIN-D5W PMX 50 MG in DEXTROSE/WATER 1 250ML.BAG IV ONE; +NOREPINEPHRINE 4 MG in SODIUM CHLORIDE 0.9% 250 ML IV ONE; +ONDANSETRON 4 MG/2 ML VIAL IVP ONE; +PAPAVERINE 360 MG in SODIUM CHLORIDE 0.9% 90 ML IV ONE; +PHENYLEPHRINE 10 MG/ML VIAL IV ONE; +PROTAMINE SULFATE 10 MG/ML 25 ML VIAL IV ONE; +PROTAMINE SULFATE 250 MG in EMPTY BAG 1 BAG IV ONE; +SODIUM BICARB 8.4% 50 ML SYR (1 MEQ/ML) IV ONE; +SODIUM CHLORIDE 0.9% 1,000 ML IV ONE; -SODIUM CHLORIDE 0.9% 1,000 ML in EMPTY BAG 1 BAG IV ONE; +TRANEXAMIC ACID 2,000 MG in SODIUM CHLORIDE 0.9% 80 ML IV ONE; +ceFAZolin 1,000 MG in SODIUM CHLORIDE 0.9% IRRIGATIO 1,000 ML IRRIGATION ONE; +propofoL 1,000 MG/100 ML VIAL IV ONE
[2020-12-16 06:41] LABS: Glucose,Whole Blood 149 mg/dL (75-99)
[2020-12-16] MEDS: CHLORHEXIDINE GLUCONATE 15 ML CUP MUCOUS MEM ONE (06:51)
[2020-12-16] MEDS ORDERED: HYDROmorphone 0.5 MG/0.5 ML SYRINGE IVP PRN (07:00)
[2020-12-16] MEDS ORDERED: MAGNESIUM SULFATE 4 MEQ/ML 10ML VIAL ONE (07:33)
[2020-12-16] MEDS ORDERED: HEPARIN SODIUM,PORCINE 10,000 UNIT/ML 1 ML VIAL ONE (07:33)
[2020-12-16] MEDS ORDERED: fentaNYL (PF) 50 MCG/ML 50 ML VIAL ONE (07:33)
[2020-12-16] MEDS ORDERED: NITROGLYCERIN-D5W PMX 50 MG/250 ML BOTTLE IV ONE (07:33)
[2020-12-16] MEDS ORDERED: MIDAZOLAM 2 MG/2 ML VIAL ONE (07:33)
[2020-12-16] MEDS ORDERED: SODIUM CHLORIDE 0.9% IRRIG 1,000 ML BTL IRRIGATION ONE (07:33)
[2020-12-16] MEDS ORDERED: PROPOFOL 10 MG/ML 20 ML VIAL IV ONE (07:33)
[2020-12-16] MEDS ORDERED: SODIUM CHLORIDE 0.9% 250 ML BAG ONE (07:33)
[2020-12-16] MEDS ORDERED: LIDOCAINE 2% SYG (PF) 100 MG/5 ML ONE (07:33)
[2020-12-16] MEDS ORDERED: TRANEXAMIC ACID 1,000 MG/10 ML VIAL ONE (07:33)
[2020-12-16] MEDS ORDERED: ELECTROLYTE-R (PH 7.4) 1,000 ML IV.SOLN IV ONE (07:33)
[2020-12-16] MEDS ORDERED: SUCCINYLCHOLINE CHLORIDE 100 MG/5 ML SYR IV ONE (07:33)
[2020-12-16] MEDS ORDERED: VECURONIUM 10 MG VIAL IV ONE (07:33)
[2020-12-16 07:41] LABS: INR 1.1 (<1.2); Partial Thromboplastin Time 25.9 sec (22.0-30.0)
[2020-12-16 08:29] LABS: ABG Base Excess -1.3 mmol/L; ABG Glucose Whole Blood 159 mg/dL (75-99); ABG HCO3 24 mmol/L (21-25); ABG Hematocrit 43 % (34.0-46.0); ABG Ionized Calcium 4.7 mg/dL (4.5-5.3); ABG Lactic Acid Whole Blood 0.9 mmol/L (0.5-1.6); ABG Oxygen Saturation 99.9 % (94-97); ABG PCO2 39 mmHg (35-45); ABG PH 7.39 (7.35-7.45); ABG PO2 197 mmHg (83-108); ABG Potassium Whole Blood 4.4 mmol/L (3.4-4.5); ABG Sodium Whole Blood 141 mmol/L (135-146); ABG TCO2 25 mmol/L (19-24)
[2020-12-16] MEDS ORDERED: PAPAVERINE 360 MG in SODIUM CHLORIDE 0.9% 90 ML IV ONE (10:00)
[2020-12-16] MEDS ORDERED: SODIUM CHLORIDE 0.9% 500 ML 500 ML with HEPARIN SODIUM,PORCINE 5,000 UNIT IV ONE ×2 (10:00)
[2020-12-16] MEDS ORDERED: ceFAZolin 1,000 MG in SODIUM CHLORIDE 0.9% 1,000 ML IRRIGATION ONE (10:01)
[2020-12-16 10:31] LABS: ABG Base Excess -1.6 mmol/L; ABG Glucose Whole Blood 188 mg/dL (75-99); ABG HCO3 23 mmol/L (21-25); ABG Hematocrit 42 % (34.0-46.0); ABG Ionized Calcium 4.7 mg/dL (4.5-5.3); ABG Lactic Acid Whole Blood 1.1 mmol/L (0.5-1.6); ABG Oxygen Saturation 99.9 % (94-97); ABG PCO2 38 mmHg (35-45); ABG PH 7.39 (7.35-7.45); ABG PO2 188 mmHg (83-108); ABG Potassium Whole Blood 4.4 mmol/L (3.4-4.5); ABG Sodium Whole Blood 139 mmol/L (135-146); ABG TCO2 24 mmol/L (19-24)
[2020-12-16 11:23] LABS: ABG Base Excess -2.4 mmol/L; ABG Glucose Whole Blood 138 mg/dL (75-99); ABG HCO3 23 mmol/L (21-25); ABG Hematocrit 32 % (34.0-46.0); ABG Ionized Calcium 4.1 mg/dL (4.5-5.3); ABG Lactic Acid Whole Blood 1.2 mmol/L (0.5-1.6); ABG PCO2 40 mmHg (35-45); ABG PH 7.36 (7.35-7.45); ABG Potassium Whole Blood 4.1 mmol/L (3.4-4.5); ABG Sodium Whole Blood 135 mmol/L (135-146); ABG TCO2 24 mmol/L (19-24)
[2020-12-16 12:00] LABS: ABG Base Excess -0.8 mmol/L; ABG Glucose Whole Blood 143 mg/dL (75-99); ABG HCO3 24 mmol/L (21-25); ABG Hematocrit 31 % (34.0-46.0); ABG Ionized Calcium 4.2 mg/dL (4.5-5.3); ABG Lactic Acid Whole Blood 1.5 mmol/L (0.5-1.6); ABG PCO2 41 mmHg (35-45); ABG PH 7.38 (7.35-7.45); ABG PO2 251 mmHg (83-108); ABG Potassium Whole Blood 5.2 mmol/L (3.4-4.5); ABG Sodium Whole Blood 139 mmol/L (135-146); ABG TCO2 26 mmol/L (19-24)
[2020-12-16 12:37] LABS: ABG Base Excess -0.5 mmol/L; ABG Glucose Whole Blood 162 mg/dL (75-99); ABG HCO3 25 mmol/L (21-25); ABG Hematocrit 30 % (34.0-46.0); ABG Ionized Calcium 4.1 mg/dL (4.5-5.3); ABG Lactic Acid Whole Blood 1.2 mmol/L (0.5-1.6); ABG PCO2 41 mmHg (35-45); ABG PH 7.39 (7.35-7.45); ABG PO2 196 mmHg (83-108); ABG Potassium Whole Blood 5.2 mmol/L (3.4-4.5); ABG Sodium Whole Blood 139 mmol/L (135-146); ABG TCO2 26 mmol/L (19-24)
[2020-12-16 13:12] LABS: ABG Base Excess -0.1 mmol/L; ABG Glucose Whole Blood 175 mg/dL (75-99); ABG HCO3 25 mmol/L (21-25); ABG Hematocrit 29 % (34.0-46.0); ABG PCO2 40 mmHg (35-45); ABG PO2 332 mmHg (83-108); ABG Potassium Whole Blood 5.4 mmol/L (3.4-4.5); ABG Sodium Whole Blood 139 mmol/L (135-146); ABG TCO2 26 mmol/L (19-24)
[2020-12-16 13:48] LABS: ABG Base Excess -1.5 mmol/L; ABG Glucose Whole Blood 173 mg/dL (75-99); ABG HCO3 24 mmol/L (21-25); ABG Hematocrit 28 % (34.0-46.0); ABG Ionized Calcium 4.1 mg/dL (4.5-5.3); ABG Lactic Acid Whole Blood 1.3 mmol/L (0.5-1.6); ABG PCO2 44 mmHg (35-45); ABG PH 7.35 (7.35-7.45); ABG PO2 258 mmHg (83-108); ABG Potassium Whole Blood 4.6 mmol/L (3.4-4.5); ABG Sodium Whole Blood 139 mmol/L (135-146); ABG TCO2 26 mmol/L (19-24)
[2020-12-16 14:30] LABS: ABG Base Excess -1.7 mmol/L; ABG Glucose Whole Blood 173 mg/dL (75-99); ABG HCO3 24 mmol/L (21-25); ABG Hematocrit 25 % (34.0-46.0); ABG Ionized Calcium 3.9 mg/dL (4.5-5.3); ABG Lactic Acid Whole Blood 1.8 mmol/L (0.5-1.6); ABG PCO2 45 mmHg (35-45); ABG PH 7.34 (7.35-7.45); ABG PO2 325 mmHg (83-108); ABG Potassium Whole Blood 4.5 mmol/L (3.4-4.5); ABG Sodium Whole Blood 140 mmol/L (135-146); ABG TCO2 26 mmol/L (19-24)
[2020-12-16 15:12] LABS: ABG Base Excess -2.1 mmol/L; ABG Glucose Whole Blood 169 mg/dL (75-99); ABG HCO3 23 mmol/L (21-25); ABG Hematocrit 29 % (34.0-46.0); ABG Ionized Calcium 3.8 mg/dL (4.5-5.3); ABG Lactic Acid Whole Blood 1.7 mmol/L (0.5-1.6); ABG PCO2 39 mmHg (35-45); ABG PH 7.38 (7.35-7.45); ABG PO2 376 mmHg (83-108); ABG Sodium Whole Blood 140 mmol/L (135-146); ABG TCO2 24 mmol/L (19-24)
[2020-12-16 15:26] LABS: ABG PO2 >420 mmHg (83-108)
[2020-12-16 15:39] LABS: ABG Base Excess -0.8 mmol/L; ABG Glucose Whole Blood 141 mg/dL (75-99); ABG HCO3 23 mmol/L (21-25); ABG Hematocrit 31 % (34.0-46.0); ABG Ionized Calcium 4.6 mg/dL (4.5-5.3); ABG Lactic Acid Whole Blood 1.9 mmol/L (0.5-1.6); ABG PCO2 33 mmHg (35-45); ABG PH 7.45 (7.35-7.45); ABG PO2 379 mmHg (83-108); ABG Potassium Whole Blood 3.9 mmol/L (3.4-4.5); ABG Sodium Whole Blood 141 mmol/L (135-146); ABG TCO2 24 mmol/L (19-24)
[2020-12-16] MEDS ORDERED: Magnesium Replacement Protocol 1 EACH MISC MISCELLANE PRN (16:12)
[2020-12-16] MEDS ORDERED: ONDANSETRON 4 MG/2 ML VIAL IVP PRN (16:12)
[2020-12-16] MEDS ORDERED: AMIODARONE 360 MG in DEXTROSE 5% IN WATER 200 ML IV PRN ×2 (16:12)
[2020-12-16] MEDS ORDERED: MORPHINE SULFATE 2 MG/ML SYRINGE IVP PRN (16:12)
[2020-12-16] MEDS ORDERED: hydrALAZINE HCL 20 MG/ML 1 ML VIAL IVP PRN (16:12)
[2020-12-16] MEDS ORDERED: METOCLOPRAMIDE 5 MG/ML 2 ML VIAL IVP PRN (16:12)
[2020-12-16] MEDS ORDERED: DEXMEDETOMIDINE/0.9% NACL(PMX) 400 MCG in EMPTY BAG 1 BAG IV SCH (16:12)
[2020-12-16] MEDS ORDERED: Phosphorus Replacement Protoco 1 EACH MISC MISCELLANE PRN (16:12)
[2020-12-16] MEDS ORDERED: IPRATROPIUM-ALBUTEROL 3 ML NEB INHALATION PRN (16:12)
[2020-12-16] MEDS ORDERED: CALCIUM GLUCONATE 2 GM in SODIUM CHLORIDE 0.9% 100 ML IVPB PRN (16:12)
[2020-12-16] MEDS ORDERED: AMIODARONE 450 MG in DEXTROSE 5% IN WATER 250 ML IV PRN ×2 (16:12)
[2020-12-16] MEDS ORDERED: DEXTROSE 5% IN WATER 100 ML with AMIODARONE 150 MG IV PRN (16:12)
[2020-12-16] MEDS ORDERED: CLEVIDIPINE BUTYRATE 25 MG in EMPTY BAG 1 BAG IV SCH (16:12)
[2020-12-16] MEDS ORDERED: BENZOCAINE/MENTHOL LOZENG 1 EACH LOZENGE MUCOUS MEM PRN (16:12)
[2020-12-16] MEDS ORDERED: NITROGLYCERIN-D5W PMX 50 MG in DEXTROSE/WATER 1 250ML.BAG IV SCH (16:12)
[2020-12-16] MEDS ORDERED: Potassium Replacement Protocol 1 EACH MISC MISCELLANE PRN (16:12)
[2020-12-16] MEDS: MILRINONE-D5W PMX 20 MG in DEXTROSE/WATER 1 100ML.BAG IV SCH (16:40)
[2020-12-16 16:42] LABS: Glucose,Whole Blood 133 mg/dL (75-99)
[2020-12-16] MEDS: ALBUMIN HUMAN 5% 250 ML in EMPTY BAG 1 BAG IVPB PRN ×4 (16:45→22:14)
[2020-12-16 16:47] LABS: Basophils % (A) 0 %; Eosinophils % (A) 0 %; HCT 27.9 % (39.0-53.0); Hyperchromasia Slight; Lymphocytes # (A) 1.2 k/uL (1.0-4.8); Lymphocytes % (A) 9 %; MCHC 35.6 g/dL (31.0-37.0); MCV 87.2 fL (80.0-100.0); Mean Platelet Volume 8.8; Monocytes % (A) 7 %; Neutrophils % (A) 82 %; RBC 3.19 m/uL (4.30-5.90); RDW 13.3 % (11.5-15.5); WBC 13.5 k/uL (3.8-10.6)
[2020-12-16 16:49] LABS: HGB 9.9 gm/dL (13.0-17.5); Platelet Count 94 k/uL (150-450)
[2020-12-16 16:59] LABS: INR 1.6 (<1.2); Partial Thromboplastin Time 35.9 sec (22.0-30.0); Prothrombin Time 16.1 sec (9.0-12.0)
[2020-12-16 17:06] LABS: Ionized Calcium 4.9 mg/dL (4.5-5.3)
[2020-12-16 17:15] LABS: ALT 12 U/L (4-49); AST 45 U/L (17-59); African American GFR (CKD) >90 (>60 ml/min/1.73 sqM); Albumin 2.7 g/dL (3.5-5.0); Alkaline Phosphatase 22 U/L (38-126); Anion Gap 6 mmol/L; Blood Urea Nitrogen 13 mg/dL (9-20); Calcium 8.2 mg/dL (8.4-10.2); Carbon Dioxide 23 mmol/L (22-30); Chloride 110 mmol/L (98-107); Glucose 129 mg/dL (74-99); Magnesium 2.3 mg/dL (1.6-2.3); Non-African American GFR(CKD) >90 (>60 ml/min/1.73 sqM); Potassium 4.3 mmol/L (3.5-5.1); Sodium 139 mmol/L (137-145); Total Bilirubin 1.3 mg/dL (0.2-1.3); Total Protein 4.2 g/dL (6.3-8.2)
--- NOTE | 2020-12-16 17:21 | XR ---
EXAMINATION TYPE: XR chest 1V portable DATE OF EXAM: 12/16/2020 COMPARISON: 12/08/2020 INDICATION: Postop cardiac surgery TECHNIQUE: Single frontal view of the chest is obtained. FINDINGS: The heart size is normal. The pulmonary vasculature is normal. Small left pleural effusion is present. Left-sided chest tube is present. Endotracheal tube tip is ab ove the cassie. Nasogastric tube transverses the thorax. Mediastinal tube is in the midline. [place] catheter tip is in the main pulmonary artery region. No pneumothorax is evident. A small amount of subcutaneous emphysema is lateral. IMPRESSION: 1. Possible lines and catheters discussed above. 2. Small left pleural effusion
[2020-12-16] MEDS ORDERED: SODIUM BICARB 8.4% 50 ML SYR (1 MEQ/ML) IV STA ×2 (17:29→18:54)
[2020-12-16] MEDS: SODIUM CHLORIDE 0.9% 1,000 ML IV SCH (17:36)
[2020-12-16 18:14] LABS: Glucose,Whole Blood 162 mg/dL (75-99)
[2020-12-16 18:37] LABS: ABG Base Excess -7.5 mmol/L; ABG HCO3 17 mmol/L (21-25); ABG Oxygen Saturation 97.6 % (94-97); ABG PCO2 28 mmHg (35-45); ABG PO2 85 mmHg (83-108); ABG TCO2 18 mmol/L (19-24); Allen Test Performed? Yes
[2020-12-16] MEDS: IPRATROPIUM-ALBUTEROL 3 ML NEB INHALATION SCH ×2 (18:42→20:36)
[2020-12-16] MEDS: INSULIN REGULAR 100 UNIT in SODIUM CHLORIDE 0.9% 100 ML IV SCH (18:44)
--- NOTE | 2020-12-16 18:49 | OP ---
OPERATIVE REPORT DATE OF THE SURGERY: 12/16/2020. SURGEON: Dr. Jazmine Edmond. BRASSIERE CUP MOLD CUTTER: Kingston MOTA and Jah Johnson, nurse practitioner. PREOPERATIVE DIAGNOSES: Triple-vessel coronary artery disease, chronic atrial fibrillation, preserved left ventricular function, hypertension, hyperlipidemia, diabetes mellitus, obstructive sleep apnea. POSTOPERATIVE DIAGNOSES: Triple-vessel coronary artery disease, chronic atrial fibrillation, preserved left ventricular function, hypertension, hyperlipidemia, diabetes mellitus, obstructive sleep apnea. PROCEDURE: 1. Quadruple coronary artery bypass grafting using the left internal mammary artery to the left anterior descending artery, left radial artery from the aorta to the first obtuse marginal artery, reverse saphenous vein graft from the aorta to the second diagonal artery, reverse saphenous vein from the aorta to the posterior descending artery. 2. Endoscopic harvesting of the left radial artery. 3. Endoscopic harvesting the left greater saphenous vein. 4. Exclusion of the left atrial appendage and excision using a 40 mm AtriClip. 5. Exploratory aortotomy. 6. Intraoperative transesophageal echocardiogram and epiaortic scanning. 7. Intraoperative graft flow measurements using the Medi-Stim system. INDICATION FOR SURGERY: The patient is a 80-year-old gentleman with chronic atrial fibrillation with progressive fatigue and dyspnea on exertion. Workup included 2D echo that showed a basically preserved left ventricle function biatrial enlargement, and a cardiac catheterization showed triple-vessel disease with a totally occluded mid left anterior descending artery. The patient was deemed a surgical candidate at moderate risk by SDS calculation. That was discussed with him. He understood it and agreed to proceed. DESCRIPTION OF THE PROCEDURE: The patient had a preoperative right internal jugular [place]-Sara catheter and a right radial arterial line placed in the preoperative holding area. His cardiac index was 1.8 and his PA pressure was 35/15. Subsequently, he was brought to the operating room where general endotracheal anesthesia was induced uneventfully. Barrow catheter was inserted. He received 2 g of cefazolin intravenously. The chest, abdomen, both lower extremities and the left upper extremity were prepped and draped using ChloraPrep. Ioban was used to cover the skin. Transesophageal echocardiogram confirmed the preoperative finding of preserved systolic function. Biatrial enlargement with smoke in the left atrium and evidence of a clot in the base of the left atrial appendage. Midline sternotomy was performed and the bone was mildly osteoporotic and no bone wax was used but only an Chris. The left hemisternum was elevated. The left internal mammary artery was harvested in a somewhat skeletonized fashion. The patient was given 5000 units of heparin. The mammary artery was clipped distally and transected. It had an excellent pulsatile flow in it and was around 1.7 mm in diameter. In the same setting, the left radial artery was exposed at the wrist and clamping trial revealed preserved signal in the left index O2 saturation probe. It was subsequently harvested endoscopically and the forearm incision was closed over a drain. The radial artery was prepared by incising the fascia all along its volar aspect and clipping all its branches. It had mild to moderate wall calcification, but overall usable. Also, in the same setting the left greater saphenous vein was harvested endoscopically after administration of 2500 units of heparin. This was done from ankle to groin level. The branches were tied. The leg incisions were closed over a drain. The vein was prepared by tying all its branches and it was around 4 mm in diameter of reasonable quality. Mediastinal fat was transected between 2 ties and epiaortic scanning revealed no protruding atheroma in the ascending aorta. Pericardium was opened in an inverted T-fashion and a pericardial cradle was created. FINDINGS: Included the soft aorta mildly enlarged and enlarged heart with visible and palpable calcific coronary artery disease. After systemic heparinization, after placement of respective pledgeted pursestring, aortic cannulation with a 21-Somali soft flow cannula and venous cannulation via the right atrial appendage with a 3 stage 25-Somali cannula was performed. Antegrade as well as retrograde cardioplegia catheter were placed. Cardiopulmonary bypass was initiated and with the heart empty and beating, we looked at the target and it appeared that the proximal to mid posterior descending artery after visible calcific plaque would be the site for bypass as well as the second diagonal artery and the first obtuse marginal artery before it went into myocardial as well as the distal LAD, which surprisingly was actually the softer and best target of all. The left atrial appendage was not manipulated. Aorta was clamped and during aortic clamping myocardial protection was achieved with initial dose of 700 mL of antegrade cold blood cardioplegia followed by 500 mL of retrograde cold blood cardioplegia. All subsequent doses were given retrograde at 15 minutes interval. We started by gently excising the tip of the left atrial appendage and again this was enlarged transversely and look into the appendage. It was empty and it has a wide neck and opening into the left atrium. We suctioned the left atrium blindly and thoroughly irrigated as there was no clot we could find. Part of the left atrial appendage was excised and a 40 mm AtriClip was deployed at its base and the opening of the appendage oversewn with double layer 4-0 Prolene. Attention was moved at this point as performing the distal anastomotic time. The first distal anastomosis between a segment of vein and the mid posterior descending artery which was around 1.5 mm in diameter using Prolene 7-0 in continuous fashion. The second distal anastomosis was between the left radial artery and the first obtuse marginal artery before it went intramyocardial where it was around 1.5 mm in diameter and thin-walled. The third distal anastomosis was between another segment of vein graft and the second diagonal artery which was around 1.25 mm in diameter using Prolene 7-0 in continuous fashion. The fourth and last distal anastomosis was between the left internal mammary artery that passed in a groove in the left pleural pericardial fat and anastomosed to the distal left anterior descending artery which was around 1.2 cm in diameter thin-walled using Prolene 7-0 in continuous fashion. At this point and before I performed the proximal anastomosis. I elected to do a limited anterior aortotomy at the base of the aorta. This was done to try to explore first the aorta for clots and there were none. I subsequently blindly suctioned the left ventricle and thoroughly irrigated several times, hoping to catch the left atrial appendage clot in case that clot did not dissolve and migrated. Subsequently, the aortotomy was closed using 2 layers of 4-0 Prolene. The first layer in a horizontal mattress fashion and the second layer in over- over technique. Rewarming was started as we punched out 3 buttons of the ascending aorta. I performed the three proximal anastomosis of the 2 vein graft and radial artery separately using Prolene in a running fashion. Patient was half loaded with Primacor and was started on 0.2 mics per kg per minute. De-airing maneuvers were followed. Patient received lidocaine and magnesium. The patient was placed in Trendelenburg position with the aortic vent on maximum. We unclamped the aorta. The patient initially regained spontaneous sinus rhythm and eventually went into his chronic atrial fibrillation with moderate ventricular response after around 15-20 minutes of reperfusion. At this point, aspiration revealed bleeding from the radial artery anastomotic site and that was done and reinforced on a beating heart with a [id number] 7-0 Prolene with control of the bleeding. Two monopolar atrial pacing wires had been affixed to the respective pursestrings on the right atrium as the patient was initially in sinus rhythm and bipolar ventricular pacing wire was driven via the inferior aspect of the right ventricle. The retrograde cardioplegia site required reinforcement with a pledgeted 4-0 Prolene. Preliminary graft flow measurements revealed patent graft. So after repeated reperfusion, we were able to wean off cardiac bypass on low-dose Primacor and Levophed. SHEA showed biatrial enlargement and good functioning right ventricle and left ventricle with adequate de-airing in it. All pump suckers were stopped and test dose and full-dose protamine was given. Decannulation followed. The venous cannulation site required reinforcement with a running 4-0 Prolene. At this point, we proceeded the graft flow measurements using the Medi-Stim system. A 4 mm probe was selected and the flow into the vein to the posterior descending artery was 38 mL/minute, pulsatility index 3.7, diastolic filling of 67%, showing excellent functioning graft. The flow into the vein to the diagonal artery was 38 mL/minute also. Pulsatility index of 2.5, diastolic filling of 63%, showing an excellent functioning graft. The flow into the radial artery to the obtuse marginal artery was 49 mL/minute, pulsatility index of 2, diastolic filling of 67%, showing excellent functioning graft. The flow into the mammary artery was good and patent though we could not capture a tracing. Two nineteen-Somali Kamran drains were left substernally. I made a small opening in the right pleura at the end to decompress potential right pneumothorax, but the right pleura was not drained. Pericardial fat was approximated over the aorta of the heart and the vein graft to the posterior descending artery. After ensuring adequate hemostasis and hemodynamic and after correct sponge, instrument, and needle count, the sternum was closed using [id number] pineal cable and a total of 6 cables were used. We interposed fibular between the sternal edges. Thorough irrigation of cefazolin followed. The rest of the closure proceeded in layers. Skin glue was applied. Patient did not receive any blood bank product but received around 900 mL of Cell Saver blood. He was transferred to the ICU on moderate dose Primacor and Levophed with a heart rate atrial fibrillation at 90 and a mean arterial pressure of 85, and a PA pressure of 37/17 with a cardiac index of 1.9. [id number] / GWEN: [id number] /
[2020-12-16 19:44] LABS: Glucose,Whole Blood 166 mg/dL (75-99)
[2020-12-16 19:50] LABS: Basophils % (A) 0 %; Eosinophils % (A) 0 %; HCT 26.6 % (39.0-53.0); HGB 9.3 gm/dL (13.0-17.5); Lymphocytes # (A) 0.9 k/uL (1.0-4.8); Lymphocytes % (A) 11 %; MCH 31.3 pg (25.0-35.0); MCHC 35.1 g/dL (31.0-37.0); MCV 89.1 fL (80.0-100.0); Mean Platelet Volume 9.4; Monocytes # (A) 0.5 k/uL (0-1.0); Monocytes % (A) 6 %; Neutrophils % (A) 82 %; RBC 2.99 m/uL (4.30-5.90); RDW 12.6 % (11.5-15.5); WBC 8.5 k/uL (3.8-10.6)
[2020-12-16 19:53] LABS: Platelet Count 69 k/uL (150-450)
[2020-12-16] MEDS ORDERED: DIGOXIN 250 MCG/ML 2 ML AMP IVP ONE (20:00)
[2020-12-16] MEDS: NOREPINEPHRINE 4 MG in SODIUM CHLORIDE 0.9% 250 ML IV SCH ×2 (20:10→21:41)
[2020-12-16 20:31] LABS: ABG HCO3 23 mmol/L (21-25); ABG Oxygen Saturation 99.6 % (94-97); ABG PCO2 35 mmHg (35-45); ABG PH 7.41 (7.35-7.45); ABG PO2 172 mmHg (83-108); ABG TCO2 24 mmol/L (19-24); Allen Test Performed? Yes
[2020-12-16] MEDS: MONTELUKAST 10 MG TAB PO SCH (21:00)
[2020-12-16] MEDS: HEPARIN SODIUM,PORCINE/PF 5,000 UNIT/0.5 ML SYRINGE SQ SCH (21:01)
[2020-12-16] MEDS: LATANOPROST 0.005% OPHTH DROPS 2.5 ML BTL BOTH EYES SCH (21:01)
[2020-12-16] MEDS: ACETAMINOPHEN IV (For NPO) 1,000 MG in EMPTY BAG 1 BAG IVPB SCH (21:12)
[2020-12-16 21:21] LABS: Glucose,Whole Blood 169 mg/dL (75-99)
[2020-12-16 22:09] LABS: Glucose,Whole Blood 173 mg/dL (75-99)
[2020-12-16 22:30] LABS: ABG Base Excess -3.5 mmol/L; ABG HCO3 21 mmol/L (21-25); ABG Oxygen Saturation 99.5 % (94-97); ABG PCO2 31 mmHg (35-45); ABG PH 7.43 (7.35-7.45); ABG PO2 143 mmHg (83-108); ABG TCO2 22 mmol/L (19-24); Allen Test Performed? Yes
[2020-12-16 22:59] LABS: Basophils % (A) 0 %; Eosinophils % (A) 0 %; HCT 24.1 % (39.0-53.0); HGB 8.4 gm/dL (13.0-17.5); Hyperchromasia Slight; Lymphocytes # (A) 0.9 k/uL (1.0-4.8); Lymphocytes % (A) 11 %; MCH 30.7 pg (25.0-35.0); MCV 87.6 fL (80.0-100.0); Mean Platelet Volume 8.1; Monocytes # (A) 0.5 k/uL (0-1.0); Monocytes % (A) 6 %; Neutrophils # (A) 7.1 k/uL (1.3-7.7); Neutrophils % (A) 82 %; RBC 2.75 m/uL (4.30-5.90); RDW 13.3 % (11.5-15.5); WBC 8.7 k/uL (3.8-10.6)
[2020-12-16 23:00] LABS: Platelet Count 92 k/uL (150-450)
[2020-12-16 23:13] LABS: Glucose,Whole Blood 157 mg/dL (75-99)
[2020-12-16] MEDS: PHENYLEPHRINE 40 MG in SODIUM CHLORIDE 0.9% 250 ML IV ONE (23:35)
[2020-12-16] MEDS: PHENYLEPHRINE 40 MG in SODIUM CHLORIDE 0.9% 250 ML IV SCH (23:55)
[2020-12-17] MEDS ORDERED: DIGOXIN 250 MCG/ML 2 ML AMP IVP ONE (00:01)
[2020-12-17 00:20] LABS: Glucose,Whole Blood 151 mg/dL (75-99)
[2020-12-17 01:27] LABS: Glucose,Whole Blood 153 mg/dL (75-99)
[2020-12-17] MEDS: ACETAMINOPHEN IV (For NPO) 1,000 MG in EMPTY BAG 1 BAG IVPB SCH (01:27)
[2020-12-17 02:08] LABS: Glucose,Whole Blood 151 mg/dL (75-99)
[2020-12-17 03:14] LABS: Glucose,Whole Blood 149 mg/dL (75-99)
[2020-12-17] MEDS: HEPARIN SODIUM,PORCINE/PF 5,000 UNIT/0.5 ML SYRINGE SQ SCH ×3 (03:37→21:51)
[2020-12-17 03:56] LABS: Glucose,Whole Blood 150 mg/dL (75-99)
[2020-12-17] MEDS ORDERED: HYDROcodone/APAP 5-325MG 1 EACH TAB PO PRN (04:02)
[2020-12-17 04:52] LABS: Basophils % (A) 0 %; Eosinophils % (A) 0 %; HCT 24.1 % (39.0-53.0); HGB 8.6 gm/dL (13.0-17.5); Lymphocytes # (A) 1.3 k/uL (1.0-4.8); Lymphocytes % (A) 14 %; MCH 31.5 pg (25.0-35.0); MCHC 35.4 g/dL (31.0-37.0); MCV 88.9 fL (80.0-100.0); Mean Platelet Volume 8.3; Monocytes # (A) 0.5 k/uL (0-1.0); Monocytes % (A) 5 %; Neutrophils # (A) 7.4 k/uL (1.3-7.7); Neutrophils % (A) 79 %; RBC 2.71 m/uL (4.30-5.90); RDW 12.8 % (11.5-15.5); WBC 9.3 k/uL (3.8-10.6)
[2020-12-17 04:54] LABS: Ionized Calcium 4.6 mg/dL (4.5-5.3)
[2020-12-17 05:04] LABS: ALT 12 U/L (4-49); AST 41 U/L (17-59); African American GFR (CKD) >90 (>60 ml/min/1.73 sqM); Alkaline Phosphatase 31 U/L (38-126); Anion Gap 6 mmol/L; Blood Urea Nitrogen 13 mg/dL (9-20); Calcium 7.8 mg/dL (8.4-10.2); Carbon Dioxide 25 mmol/L (22-30); Chloride 108 mmol/L (98-107); Glucose 132 mg/dL (74-99); Magnesium 2.3 mg/dL (1.6-2.3); Non-African American GFR(CKD) 85 (>60 ml/min/1.73 sqM); Sodium 139 mmol/L (137-145); Total Protein 4.7 g/dL (6.3-8.2)
[2020-12-17 05:07] LABS: Platelet Count 97 k/uL (150-450)
[2020-12-17 05:11] LABS: ABG Base Excess 1.5 mmol/L; ABG HCO3 26 mmol/L (21-25); ABG Oxygen Saturation 96.7 % (94-97); ABG PCO2 39 mmHg (35-45); ABG PH 7.43 (7.35-7.45); ABG PO2 76 mmHg (83-108); ABG TCO2 27 mmol/L (19-24)
[2020-12-17 05:12] LABS: INR 1.2 (<1.2); Partial Thromboplastin Time 31.9 sec (22.0-30.0); Prothrombin Time 12.3 sec (9.0-12.0)
[2020-12-17 05:15] LABS: Glucose,Whole Blood 136 mg/dL (75-99)
[2020-12-17 05:55] LABS: Allen Test Performed? no
--- NOTE | 2020-12-17 06:06 | XR ---
EXAMINATION TYPE: XR chest 1V portable DATE OF EXAM: 12/17/2020 CLINICAL HISTORY: Postoperative cardiac surgery progress study. TECHNIQUE: Single AP portable semiupright view of the chest is obtained. COMPARISON: Chest x-ray from one and 2 days earlier FINDINGS: Stable endotracheal and orogastric tubes. Stable right internal jugular [place]-Sara catheter . Stable left-sided chest tube and mediastinal drainage catheter. Overlying sternal wires and mediast inal clips along with left atrial appendage clip are all redemonstrated. Stable mild cardiomegaly. Persistent left basilar opacity. No pneumothorax seen bilaterally. New Patc hy right basilar opacity. Degenerative change left glenohumeral joint. IMPRESSION: Cardiomegaly and chronic parenchymal changes with small left pleural effusion and left gr eater than right bibasilar acute atelectasis and/or less likely infiltrates are redemonstrated. Left- sided chest tube noted. No pneumothorax seen. No significant change from one day earlier.
[2020-12-17 06:19] LABS: Glucose,Whole Blood 124 mg/dL (75-99)
[2020-12-17] MEDS: NOREPINEPHRINE 4 MG in SODIUM CHLORIDE 0.9% 250 ML IV SCH (06:48)
[2020-12-17 07:15] LABS: Glucose,Whole Blood 121 mg/dL (75-99)
[2020-12-17] MEDS: IPRATROPIUM-ALBUTEROL 3 ML NEB INHALATION SCH ×4 (07:23→20:17)
[2020-12-17] MEDS ORDERED: CALCIUM GLUCONATE 1 GM in SODIUM CHLORIDE 0.9% 100 ML IVPB ONE (08:00)
[2020-12-17 08:30] LABS: Glucose,Whole Blood 112 mg/dL (75-99)
[2020-12-17] MEDS ORDERED: METOPROLOL TARTRATE 12.5 MG TAB PO SCH (09:00)
[2020-12-17] MEDS ORDERED: ASPIRIN 325 MG TAB PO SCH (09:00)
[2020-12-17] MEDS ORDERED: MAGNESIUM HYDROXIDE 2,400 MG/10 ML CUP PO PRN (09:00)
[2020-12-17] MEDS ORDERED: bisacodyL 10 MG SUPP RECTAL PRN (09:00)
[2020-12-17] MEDS ORDERED: PANTOPRAZOLE 40 MG/10 ML VIAL IVP SCH (09:00)
--- NOTE | 2020-12-17 09:30 | P.PN ---
Subjective Progress Note Date: 12/17/20 Principal diagnosis: Triple-vessel coronary artery disease. Previous medical history of coronary artery disease with PCI to the LAD in 2006, chronic atrial fibrillation on Coumadin for anticoagulation, preserved left ventricular function, hypertension, hyperlipidemia, diet controlled diabetes mellitus, obstructive sleep apnea on home CPAP, previous pituitary tumor, never smoker, daily wine consumption, and family history of premature coronary artery disease with father diagnosed before the age of 55. POD #1 quadruple coronary artery bypass grafting using the left internal mammary artery to the left anterior descending artery, left radial artery from the aorta to the first obtuse marginal artery, reverse saphenous vein graft from the aorta to the second diagonal artery, reverse saphenous vein graft from the aorta to the posterior descending artery, endoscopic harvesting of the left radial artery, endoscopic harvesting of the left greater saphenous vein from ankle to the groin, exclusion of the left atrial appendage using a 40 mm AtriClip, exploratory aortotomy, intraoperative transesophageal echocardiogram and epi- aortic scanning, intraoperative graft flow measurements using the [employer] system Postoperative acute blood loss anemia and thrombocytopenia, expected given hemodilution and cardiopulmonary bypass pump as well as chronic Coumadin use The patient is currently laying in the intensive care unit in no acute distress, continues to be sedated and mechanically ventilated. Remains in atrial fibrillation, mostly controlled. Remains on IV Levophed and Marcus-Synephrine for blood pressure support as well as Primacor for cardiac output. Most recent CO /CI 3.5/1.8 with SVR 1370, PA pressure 38/23, CVP 14. Right internal jugular [place]/Cordis, right radial arterial line, mediastinal/left pleural chest tubes all remain. Patient did get 1 L of albumin yesterday as well as IV sodium bicarb. Ventilator changes made per pulmonology. The patient did receive 1 unit packed red blood cells as well as 2 units FFP last night due to increased chest tube output. Patient remains a bit oozy which is somewhat expected due to chronic Coumadin use. Sedation holiday to be completed to evaluate neurological status. No other new concerns. Objective - Vital Signs Vital signs: Vital Signs Temp 98.2 F 12/17/20 02:38 Pulse 100 12/17/20 07:39 Resp 15 12/17/20 07:00 BP 108/55 12/17/20 02:38 Pulse Ox 100 12/17/20 07:00 Intake & Output 12/16/20 12/17/20 12/17/20 18:59 06:59 18:59 Intake Total 339.620 7877.327 98 Output Total 5155 2703 155 Balance -4499.233 -228.673 -57 Weight 97.4 kg Intake: IV 55 758 98 .9NS Cardiac Output 30 350 30 0.9NS Pressure Bags 18 108 18 ACETAMINOPHEN IV (For NPO 200 ) 1,000 mg In Empty Bag 1 bag @ 400 mls/hr IVPB Q6HR BRENDA Rx#:[id number] Sodium Chloride 0.9% 1, 50 000 ml @ 50 mls/hr IV . Q20H BRENDA Rx#:[id number] ceFAZolin 2 gm In Sodium 100 Chloride 0.9% 50 ml @ 100 mls/hr IVPB Q8H BRENDA Rx#: [id number] Intake, IV Titration 600.767 783.327 Amount Albumin Human 5% 500 ml @ 500 250 Per Protocol IVPB ONCE ONE Rx#:[id number] Clevidipine Butyrate 25 0.767 34 mg In Empty Bag 1 bag @ 1 MG/HR 2 mls/hr IV .Q24H BRENDA Rx#:[id number] Insulin Regular 100 unit 25.544 In Sodium Chloride 0.9% 100 ml @ Per Protocol IV .Q0M BRENDA Rx#:[id number] Nitroglycerin-D5w Pmx 50 13.500 mg In Dextrose/Water 1 250ml.bag @ 5 MCG/MIN 1.5 mls/hr IV .Q24H BRENDA Rx#: [id number] Norepinephrine 4 mg In 187.136 Sodium Chloride 0.9% 250 ml @ 0.05 MCG/KG/MIN 16. 478 mls/hr IV .[id number] [facility]ENDA Rx#:[id number] Phenylephrine 40 mg In 72.285 Sodium Chloride 0.9% 250 ml @ 0.5 MCG/KG/MIN 16. 478 mls/hr IV .[id number] BRENDA Rx#:[id number] Sodium Chloride 0.9% 1, 100 50 000 ml @ Per Protocol IV ONCE ONE Rx#:[id number] propofoL 1,000 mg In 150.862 Empty Bag 1 bag @ Titrate IV .Q0M BRENDA Rx#: [id number] Blood Product 933 Ffp 24 Cpd Unit 319 [id number] Ffp 24 Cpd Unit 304 [id number] As-1 Unit 310 [id number] Output: Chest Tube Drainage 580 1560 90 Left Pleural Chest Tube 220 660 30 Mediastinal Chest Tube X 360 900 60 2 Drainage 40 Left Forearm 40 Urine 2975 1103 65 Estimated Blood Loss 1600 Other: Voiding Method Indwelling Catheter Indwelling Catheter ABP, PAP, CO, CI - Last Documented Arterial Blood Pressure 113/58 Pulmonary Artery Pressure 34/23 Cardiac Output 3.5 Cardiac Index 1.8 - Exam CONSTITUTIONAL: Remains sedated and mechanically ventilated, appears comfortable, no acute distress RESPIRATORY: Lungs sounds diminished bilaterally. Respirations even, nonlabored. Currently on assist control mechanical ventilation with FiO2 50%, PEEP 5, tidal volume 500, respiratory rate 12. 9.0 ET tube present, 24 at the lip. CARDIOVASCULAR: S1, S2 present. Irregular rate and rhythm, chronic atrial fibrillation on telemetry. Sternum stable. Palpable peripheral pulses bilaterally. Trace generalized edema present. Heart hugger, antiembolism stockings, SCDs present. GASTROINTESTINAL: Abdomen soft, nontender, nondistended, round. Hypoactive bowel sounds present 4 quadrants. OG tube present to low intermittent wall suction with minimal blood-tinged drainage GENITOURINARY: Barrow present draining rust colored urine. Output overnight 22- 55 mL per hour INTEGUMENTARY: Skin is warm and dry. Anterior chest incision well approximated and covered with dry intact dressing. Left radial artery harvest site well approximated, ADOLOF drain present with minimal output. Left lower extremity EVH site well approximated without redness or drainage. NEUROLOGIC: Sedated with propofol INVASIVE LINES AND TUBES: Mediastinal/left pleural chest tubes present and connected to wall suction, no air leaks present. Mediastinal tube with 490 mL serosanguineous drainage overnight, 1270 mL since surgery. Left pleural chest tube with 600 mL serosanguineous drainage overnight, 920 mL since surgery. A/V epicardial pacemaker wires present, grounded. Right internal jugular [place]/Cordis, right radial arterial line present. Last CO/CI 3.5/1.8, PA 38/23, CVP 14. - Allied health notes Allied health notes reviewed: nursing - Labs CBC & Chem 7: 12/17/20 03:50 12/17/20 03:50 Labs: Abnormal Lab Results - Last 24 Hours (Table) 12/08/20 12/16/20 12/16/20 Range/Units 08:59 08:33 10:35 WBC (3.8-10.6) k/uL RBC (4.30-5.90) m/uL Hgb (13.0-17.5) gm/dL Hct (39.0-53.0) % Plt Count (150-450) k/uL Neutrophils # (1.3-7.7) k/uL Lymphocytes # (1.0-4.8) k/uL PT (9.0-12.0) sec INR (<1.2) APTT (22.0-30.0) sec ABG pH (7.35-7.45) ABG pCO2 (35-45) mmHg ABG pO2 197 H 188 H (83-108) mmHg ABG HCO3 (21-25) mmol/L ABG Total CO2 25 H (19-24) mmol/L ABG O2 Saturation 99.9 H 99.9 H (94-97) % ABG Hematocrit (34.0-46.0) % ABG Potassium (3.4-4.5) mmol/L ABG Ionized Calcium (4.5-5.3) mg/dL ABG Glucose 159 H 188 H (75-99) mg/dL ABG Lactic Acid (0.5-1.6) mmol/L Hemoglobin (13.0-17.5) gm/dL Chloride (98-107) mmol/L Creatinine (0.66-1.25) mg/dL Glucose (74-99) mg/dL POC Glucose (mg/dL) (75-99) mg/dL Calcium (8.4-10.2) mg/dL Alkaline Phosphatase (38-126) U/L Total Protein (6.3-8.2) g/dL Albumin (3.5-5.0) g/dL Arterial Blood Potassium (3.4-4.5) mmol/L Arterial Blood Glucose 159 H 188 H (75-99) mg/dL Crossmatch See Detail 12/16/20 12/16/20 12/16/20 Range/Units 11:27 12:04 12:40 WBC (3.8-10.6) k/uL RBC (4.30-5.90) m/uL Hgb (13.0-17.5) gm/dL Hct (39.0-53.0) % Plt Count (150-450) k/uL Neutrophils # (1.3-7.7) k/uL Lymphocytes # (1.0-4.8) k/uL PT (9.0-12.0) sec INR (<1.2) APTT (22.0-30.0) sec ABG pH (7.35-7.45) ABG pCO2 (35-45) mmHg ABG pO2 >420 H 251 H 196 H (83-108) mmHg ABG HCO3 (21-25) mmol/L ABG Total CO2 26 H 26 H (19-24) mmol/L ABG O2 Saturation 100.0 H 100.0 H 100.0 H (94-97) % ABG Hematocrit 32 L 31 L 30 L (34.0-46.0) % ABG Potassium 5.2 H 5.2 H (3.4-4.5) mmol/L ABG Ionized Calcium 4.1 L 4.2 L 4.1 L (4.5-5.3) mg/dL ABG Glucose 138 H 143 H 162 H (75-99) mg/dL ABG Lactic Acid (0.5-1.6) mmol/L Hemoglobin 10.5 L 10.0 L 9.7 L (13.0-17.5) gm/dL Chloride (98-107) mmol/L Creatinine (0.66-1.25) mg/dL Glucose (74-99) mg/dL POC Glucose (mg/dL) (75-99) mg/dL Calcium (8.4-10.2) mg/dL Alkaline Phosphatase (38-126) U/L Total Protein (6.3-8.2) g/dL Albumin (3.5-5.0) g/dL Arterial Blood Potassium 5.2 H 5.2 H (3.4-4.5) mmol/L Arterial Blood Glucose 138 H 143 H 162 H (75-99) mg/dL Crossmatch 12/16/20 12/16/20 12/16/20 Range/Units 13:16 13:53 14:34 WBC (3.8-10.6) k/uL RBC (4.30-5.90) m/uL Hgb (13.0-17.5) gm/dL Hct (39.0-53.0) % Plt Count (150-450) k/uL Neutrophils # (1.3-7.7) k/uL Lymphocytes # (1.0-4.8) k/uL PT (9.0-12.0) sec INR (<1.2) APTT (22.0-30.0) sec ABG pH 7.34 L (7.35-7.45) ABG pCO2 (35-45) mmHg ABG pO2 332 H 258 H 325 H (83-108) mmHg ABG HCO3 (21-25) mmol/L ABG Total CO2 26 H 26 H 26 H (19-24) mmol/L ABG O2 Saturation 100.0 H 100.0 H 100.0 H (94-97) % ABG Hematocrit 29 L 28 L 25 L (34.0-46.0) % ABG Potassium 5.4 H 4.6 H (3.4-4.5) mmol/L ABG Ionized Calcium 4.0 L 4.1 L 3.9 L (4.5-5.3) mg/dL ABG Glucose 175 H 173 H 173 H (75-99) mg/dL ABG Lactic Acid 1.8 H (0.5-1.6) mmol/L Hemoglobin 9.5 L 9.1 L 8.1 L (13.0-17.5) gm/dL Chloride (98-107) mmol/L Creatinine (0.66-1.25) mg/dL Glucose (74-99) mg/dL POC Glucose (mg/dL) (75-99) mg/dL Calcium (8.4-10.2) mg/dL Alkaline Phosphatase (38-126) U/L Total Protein (6.3-8.2) g/dL Albumin (3.5-5.0) g/dL Arterial Blood Potassium 5.4 H 4.6 H (3.4-4.5) mmol/L Arterial Blood Glucose 175 H 173 H 173 H (75-99) mg/dL Crossmatch 12/16/20 12/16/20 12/16/20 Range/Units 15:16 15:43 16:35 WBC 13.5 H (3.8-10.6) k/uL RBC 3.19 L (4.30-5.90) m/uL Hgb 9.9 L D (13.0-17.5) gm/dL Hct 27.9 L (39.0-53.0) % Plt Count 94 L (150-450) k/uL Neutrophils # 11.0 H (1.3-7.7) k/uL Lymphocytes # (1.0-4.8) k/uL PT (9.0-12.0) sec INR (<1.2) APTT (22.0-30.0) sec ABG pH (7.35-7.45) ABG pCO2 33 L (35-45) mmHg ABG pO2 376 H 379 H (83-108) mmHg ABG HCO3 (21-25) mmol/L ABG Total CO2 (19-24) mmol/L ABG O2 Saturation 100.0 H 100.0 H (94-97) % ABG Hematocrit 29 L 31 L (34.0-46.0) % ABG Potassium (3.4-4.5) mmol/L ABG Ionized Calcium 3.8 L (4.5-5.3) mg/dL ABG Glucose 169 H 141 H (75-99) mg/dL ABG Lactic Acid 1.7 H 1.9 H (0.5-1.6) mmol/L Hemoglobin 9.5 L 10.1 L (13.0-17.5) gm/dL Chloride (98-107) mmol/L Creatinine (0.66-1.25) mg/dL Glucose (74-99) mg/dL POC Glucose (mg/dL) (75-99) mg/dL Calcium (8.4-10.2) mg/dL Alkaline Phosphatase (38-126) U/L Total Protein (6.3-8.2) g/dL Albumin (3.5-5.0) g/dL Arterial Blood Potassium (3.4-4.5) mmol/L Arterial Blood Glucose 169 H 141 H (75-99) mg/dL Crossmatch 12/16/20 12/16/20 12/16/20 Range/Units 16:35 16:35 16:37 WBC (3.8-10.6) k/uL RBC (4.30-5.90) m/uL Hgb (13.0-17.5) gm/dL Hct (39.0-53.0) % Plt Count (150-450) k/uL Neutrophils # (1.3-7.7) k/uL Lymphocytes # (1.0-4.8) k/uL PT 16.1 H (9.0-12.0) sec INR 1.6 H (<1.2) APTT 35.9 H (22.0-30.0) sec ABG pH (7.35-7.45) ABG pCO2 (35-45) mmHg ABG pO2 (83-108) mmHg ABG HCO3 (21-25) mmol/L ABG Total CO2 (19-24) mmol/L ABG O2 Saturation (94-97) % ABG Hematocrit (34.0-46.0) % ABG Potassium (3.4-4.5) mmol/L ABG Ionized Calcium (4.5-5.3) mg/dL ABG Glucose (75-99) mg/dL ABG Lactic Acid (0.5-1.6) mmol/L Hemoglobin (13.0-17.5) gm/dL Chloride 110 H (98-107) mmol/L Creatinine 0.65 L (0.66-1.25) mg/dL Glucose 129 H (74-99) mg/dL POC Glucose (mg/dL) 133 H (75-99) mg/dL Calcium 8.2 L (8.4-10.2) mg/dL Alkaline Phosphatase 22 L (38-126) U/L Total Protein 4.2 L (6.3-8.2) g/dL Albumin 2.7 L (3.5-5.0) g/dL Arterial Blood Potassium (3.4-4.5) mmol/L Arterial Blood Glucose (75-99) mg/dL Crossmatch 12/16/20 12/16/20 12/16/20 Range/Units 18:13 18:31 19:40 WBC (3.8-10.6) k/uL RBC 2.99 L (4.30-5.90) m/uL Hgb 9.3 L (13.0-17.5) gm/dL Hct 26.6 L (39.0-53.0) % Plt Count 69 L (150-450) k/uL Neutrophils # (1.3-7.7) k/uL Lymphocytes # 0.9 L (1.0-4.8) k/uL PT (9.0-12.0) sec INR (<1.2) APTT (22.0-30.0) sec ABG pH (7.35-7.45) ABG pCO2 28 L (35-45) mmHg ABG pO2 (83-108) mmHg ABG HCO3 17 L (21-25) mmol/L ABG Total CO2 18 L (19-24) mmol/L ABG O2 Saturation 97.6 H (94-97) % ABG Hematocrit (34.0-46.0) % ABG Potassium (3.4-4.5) mmol/L ABG Ionized Calcium (4.5-5.3) mg/dL ABG Glucose (75-99) mg/dL ABG Lactic Acid (0.5-1.6) mmol/L Hemoglobin (13.0-17.5) gm/dL Chloride (98-107) mmol/L Creatinine (0.66-1.25) mg/dL Glucose (74-99) mg/dL POC Glucose (mg/dL) 162 H (75-99) mg/dL Calcium (8.4-10.2) mg/dL Alkaline Phosphatase (38-126) U/L Total Protein (6.3-8.2) g/dL Albumin (3.5-5.0) g/dL Arterial Blood Potassium (3.4-4.5) mmol/L Arterial Blood Glucose (75-99) mg/dL Crossmatch 12/16/20 12/16/20 12/16/20 Range/Units 19:42 20:25 21:20 WBC (3.8-10.6) k/uL RBC (4.30-5.90) m/uL Hgb (13.0-17.5) gm/dL Hct (39.0-53.0) % Plt Count (150-450) k/uL Neutrophils # (1.3-7.7) k/uL Lymphocytes # (1.0-4.8) k/uL PT (9.0-12.0) sec INR (<1.2) APTT (22.0-30.0) sec ABG pH (7.35-7.45) ABG pCO2 (35-45) mmHg ABG pO2 172 H (83-108) mmHg ABG HCO3 (21-25) mmol/L ABG Total CO2 (19-24) mmol/L ABG O2 Saturation 99.6 H (94-97) % ABG Hematocrit (34.0-46.0) % ABG Potassium (3.4-4.5) mmol/L ABG Ionized Calcium (4.5-5.3) mg/dL ABG Glucose (75-99) mg/dL ABG Lactic Acid (0.5-1.6) mmol/L Hemoglobin (13.0-17.5) gm/dL Chloride (98-107) mmol/L Creatinine (0.66-1.25) mg/dL Glucose (74-99) mg/dL POC Glucose (mg/dL) 166 H 169 H (75-99) mg/dL Calcium (8.4-10.2) mg/dL Alkaline Phosphatase (38-126) U/L Total Protein (6.3-8.2) g/dL Albumin (3.5-5.0) g/dL Arterial Blood Potassium (3.4-4.5) mmol/L Arterial Blood Glucose (75-99) mg/dL Crossmatch 12/16/20 12/16/20 12/16/20 Range/Units 22:00 22:07 22:25 WBC (3.8-10.6) k/uL RBC 2.75 L (4.30-5.90) m/uL Hgb 8.4 L (13.0-17.5) gm/dL Hct 24.1 L (39.0-53.0) % Plt Count 92 L (150-450) k/uL Neutrophils # (1.3-7.7) k/uL Lymphocytes # 0.9 L (1.0-4.8) k/uL PT (9.0-12.0) sec INR (<1.2) APTT (22.0-30.0) sec ABG pH (7.35-7.45) ABG pCO2 31 L (35-45) mmHg ABG pO2 143 H (83-108) mmHg ABG HCO3 (21-25) mmol/L ABG Total CO2 (19-24) mmol/L ABG O2 Saturation 99.5 H (94-97) % ABG Hematocrit (34.0-46.0) % ABG Potassium (3.4-4.5) mmol/L ABG Ionized Calcium (4.5-5.3) mg/dL ABG Glucose (75-99) mg/dL ABG Lactic Acid (0.5-1.6) mmol/L Hemoglobin (13.0-17.5) gm/dL Chloride (98-107) mmol/L Creatinine (0.66-1.25) mg/dL Glucose (74-99) mg/dL POC Glucose (mg/dL) 173 H (75-99) mg/dL Calcium (8.4-10.2) mg/dL Alkaline Phosphatase (38-126) U/L Total Protein (6.3-8.2) g/dL Albumin (3.5-5.0) g/dL Arterial Blood Potassium (3.4-4.5) mmol/L Arterial Blood Glucose (75-99) mg/dL Crossmatch 12/16/20 12/16/20 12/17/20 Range/Units 23:00 23:12 00:19 WBC (3.8-10.6) k/uL RBC (4.30-5.90) m/uL Hgb (13.0-17.5) gm/dL Hct (39.0-53.0) % Plt Count (150-450) k/uL Neutrophils # (1.3-7.7) k/uL Lymphocytes # (1.0-4.8) k/uL PT (9.0-12.0) sec INR (<1.2) APTT (22.0-30.0) sec ABG pH (7.35-7.45) ABG pCO2 (35-45) mmHg ABG pO2 (83-108) mmHg ABG HCO3 (21-25) mmol/L ABG Total CO2 (19-24) mmol/L ABG O2 Saturation (94-97) % ABG Hematocrit (34.0-46.0) % ABG Potassium (3.4-4.5) mmol/L ABG Ionized Calcium (4.5-5.3) mg/dL ABG Glucose (75-99) mg/dL ABG Lactic Acid (0.5-1.6) mmol/L Hemoglobin (13.0-17.5) gm/dL Chloride (98-107) mmol/L Creatinine (0.66-1.25) mg/dL Glucose (74-99) mg/dL POC Glucose (mg/dL) 157 H 151 H (75-99) mg/dL Calcium (8.4-10.2) mg/dL Alkaline Phosphatase (38-126) U/L Total Protein (6.3-8.2) g/dL Albumin (3.5-5.0) g/dL Arterial Blood Potassium (3.4-4.5) mmol/L Arterial Blood Glucose (75-99) mg/dL Crossmatch See Detail 12/17/20 12/17/20 12/17/20 Range/Units 01:25 02:06 03:12 WBC (3.8-10.6) k/uL RBC (4.30-5.90) m/uL Hgb (13.0-17.5) gm/dL Hct (39.0-53.0) % Plt Count (150-450) k/uL Neutrophils # (1.3-7.7) k/uL Lymphocytes # (1.0-4.8) k/uL PT (9.0-12.0) sec INR (<1.2) APTT (22.0-30.0) sec ABG pH (7.35-7.45) ABG pCO2 (35-45) mmHg ABG pO2 (83-108) mmHg ABG HCO3 (21-25) mmol/L ABG Total CO2 (19-24) mmol/L ABG O2 Saturation (94-97) % ABG Hematocrit (34.0-46.0) % ABG Potassium (3.4-4.5) mmol/L ABG Ionized Calcium (4.5-5.3) mg/dL ABG Glucose (75-99) mg/dL ABG Lactic Acid (0.5-1.6) mmol/L Hemoglobin (13.0-17.5) gm/dL Chloride (98-107) mmol/L Creatinine (0.66-1.25) mg/dL Glucose (74-99) mg/dL POC Glucose (mg/dL) 153 H 151 H 149 H (75-99) mg/dL Calcium (8.4-10.2) mg/dL Alkaline Phosphatase (38-126) U/L Total Protein (6.3-8.2) g/dL Albumin (3.5-5.0) g/dL Arterial Blood Potassium (3.4-4.5) mmol/L Arterial Blood Glucose (75-99) mg/dL Crossmatch 12/17/20 12/17/20 12/17/20 Range/Units 03:50 03:50 03:50 WBC (3.8-10.6) k/uL RBC 2.71 L (4.30-5.90) m/uL Hgb 8.6 L (13.0-17.5) gm/dL Hct 24.1 L (39.0-53.0) % Plt Count 97 L (150-450) k/uL Neutrophils # (1.3-7.7) k/uL Lymphocytes # (1.0-4.8) k/uL PT 12.3 H (9.0-12.0) sec INR 1.2 H (<1.2) APTT 31.9 H (22.0-30.0) sec ABG pH (7.35-7.45) ABG pCO2 (35-45) mmHg ABG pO2 (83-108) mmHg ABG HCO3 (21-25) mmol/L ABG Total CO2 (19-24) mmol/L ABG O2 Saturation (94-97) % ABG Hematocrit (34.0-46.0) % ABG Potassium (3.4-4.5) mmol/L ABG Ionized Calcium (4.5-5.3) mg/dL ABG Glucose (75-99) mg/dL ABG Lactic Acid (0.5-1.6) mmol/L Hemoglobin (13.0-17.5) gm/dL Chloride 108 H (98-107) mmol/L Creatinine (0.66-1.25) mg/dL Glucose 132 H (74-99) mg/dL POC Glucose (mg/dL) (75-99) mg/dL Calcium 7.8 L (8.4-10.2) mg/dL Alkaline Phosphatase 31 L (38-126) U/L Total Protein 4.7 L (6.3-8.2) g/dL Albumin 3.0 L (3.5-5.0) g/dL Arterial Blood Potassium (3.4-4.5) mmol/L Arterial Blood Glucose (75-99) mg/dL Crossmatch 12/17/20 12/17/20 12/17/20 Range/Units 03:54 05:10 05:13 WBC (3.8-10.6) k/uL RBC (4.30-5.90) m/uL Hgb (13.0-17.5) gm/dL Hct (39.0-53.0) % Plt Count (150-450) k/uL Neutrophils # (1.3-7.7) k/uL Lymphocytes # (1.0-4.8) k/uL PT (9.0-12.0) sec INR (<1.2) APTT (22.0-30.0) sec ABG pH (7.35-7.45) ABG pCO2 (35-45) mmHg ABG pO2 76 L (83-108) mmHg ABG HCO3 26 H (21-25) mmol/L ABG Total CO2 27 H (19-24) mmol/L ABG O2 Saturation (94-97) % ABG Hematocrit (34.0-46.0) % ABG Potassium (3.4-4.5) mmol/L ABG Ionized Calcium (4.5-5.3) mg/dL ABG Glucose (75-99) mg/dL ABG Lactic Acid (0.5-1.6) mmol/L Hemoglobin (13.0-17.5) gm/dL Chloride (98-107) mmol/L Creatinine (0.66-1.25) mg/dL Glucose (74-99) mg/dL POC Glucose (mg/dL) 150 H 136 H (75-99) mg/dL Calcium (8.4-10.2) mg/dL Alkaline Phosphatase (38-126) U/L Total Protein (6.3-8.2) g/dL Albumin (3.5-5.0) g/dL Arterial Blood Potassium (3.4-4.5) mmol/L Arterial Blood Glucose (75-99) mg/dL Crossmatch 12/17/20 12/17/20 12/17/20 Range/Units 06:17 07:12 08:28 WBC (3.8-10.6) k/uL RBC (4.30-5.90) m/uL Hgb (13.0-17.5) gm/dL Hct (39.0-53.0) % Plt Count (150-450) k/uL Neutrophils # (1.3-7.7) k/uL Lymphocytes # (1.0-4.8) k/uL PT (9.0-12.0) sec INR (<1.2) APTT (22.0-30.0) sec ABG pH (7.35-7.45) ABG pCO2 (35-45) mmHg ABG pO2 (83-108) mmHg ABG HCO3 (21-25) mmol/L ABG Total CO2 (19-24) mmol/L ABG O2 Saturation (94-97) % ABG Hematocrit (34.0-46.0) % ABG Potassium (3.4-4.5) mmol/L ABG Ionized Calcium (4.5-5.3) mg/dL ABG Glucose (75-99) mg/dL ABG Lactic Acid (0.5-1.6) mmol/L Hemoglobin (13.0-17.5) gm/dL Chloride (98-107) mmol/L Creatinine (0.66-1.25) mg/dL Glucose (74-99) mg/dL POC Glucose (mg/dL) 124 H 121 H 112 H (75-99) mg/dL Calcium (8.4-10.2) mg/dL Alkaline Phosphatase (38-126) U/L Total Protein (6.3-8.2) g/dL Albumin (3.5-5.0) g/dL Arterial Blood Potassium (3.4-4.5) mmol/L Arterial Blood Glucose (75-99) mg/dL Crossmatch - Imaging and Cardiology Chest x-ray: report reviewed, image reviewed Assessment and Plan Assessment: 1. Triple-vessel coronary artery disease, status post four-vessel CABG 2. Preserved left ventricular function 3. History of coronary artery disease with PCI to the LAD in 2005 4. Chronic atrial fibrillation on Coumadin for anticoagulation, status post exclusion of the left atrial appendage 5. History of hypertension, currently hypotensive due to vaso-plegia which was expected due to preoperative antihypertensives, on IV Levophed and Marcus- Synephrine 6. Hyperlipidemia, treated, cholesterol 123, LDL 153, triglycerides 181 7. Diet controlled diabetes mellitus, preoperative hemoglobin A1c 6.2% 8. Obstructive sleep apnea on home CPAP 9. Previous pituitary tumor 10. Never smoker, preoperative FEV1 91% of predicted 11. Daily wine consumption 13. Family history of premature coronary artery disease with father diagnosed before the age of 55. 14. Postoperative acute blood loss anemia and thrombocytopenia, expected Plan: 1. Continue low-dose aspirin, statin, Plavix, beta junito therapy. Will increase beta junito as tolerated. Patient received 3 doses IV push digoxin, may give fourth dose if patient becomes tachycardic 2. Wean IV levo and marcus-as able, preferably wean levo first due to the pote ntial for tachycardia. Continue IV Primacor 3. Wean from mechanical ventilation as tolerated, bronchodilators per pulmonology. Sedation holiday to assess neuro status 4. Will monitor daily labs and x-rays. Electrolyte replacement per protocol. We will give 1 g IV calcium slowly today, no further transfusions today 5. GI/DVT prophylaxis, Protonix increased to twice daily IV push 6. Insulin management per primary care service 7. Pain controlled current medication regimen 8. Once extubated will encourage incentive spirometry, and increase activity as tolerated. PT/OT/cardiac rehab consulted 9. Continue [place]/Cordis, all chest tubes for another 24 hours. We'll discontinue ADOLFO drain 10. Continue Barrow catheter for another 24 hours for [intake and output. Daily weights 11. No anticoagulation with Coumadin until all lines and tubes have been discontinued 12. More recommendations to follow based on patient's progress Time with Patient: Greater than 30
[2020-12-17 09:36] LABS: Glucose,Whole Blood 135 mg/dL (75-99)
[2020-12-17] MEDS: CHOLECALCIFEROL 25 MCG (1000 IU) TABLET PO SCH (09:51)
[2020-12-17] MEDS: ATORVASTATIN 40 MG TAB PO SCH (09:51)
[2020-12-17] MEDS: ASCORBIC ACID 500 MG TAB PO SCH (09:51)
[2020-12-17] MEDS: PANTOPRAZOLE 40 MG/10 ML VIAL IVP SCH ×2 (09:51→21:52)
[2020-12-17] MEDS: ASPIRIN 81 MG PO SCH (09:51)
[2020-12-17] MEDS: CLOPIDOGREL 75 MG TAB PO SCH (09:51)
[2020-12-17 10:09] LABS: Glucose,Whole Blood 135 mg/dL (75-99)
[2020-12-17 11:12] LABS: Glucose,Whole Blood 127 mg/dL (75-99)
[2020-12-17] MEDS: PHENYLEPHRINE 40 MG in SODIUM CHLORIDE 0.9% 250 ML IV SCH ×2 (11:30→21:53)
--- NOTE | 2020-12-17 11:49 | P.CNPUL ---
History of Present Illness Consult date: 12/17/20 Requesting physician: Jazmine Edmond Reason for consult: other (Critical care/mechanical ventilator management) Chief complaint: Coronary artery disease History of present illness: This is a 80-year-old male patient with a history of atrial fibrillation, hyperlipidemia, hypertension, diabetes mellitus. Lifelong nonsmoker. who was found to have severe triple-vessel coronary artery disease with a totally occluded mid LAD and good collaterals and normal ejection fraction. He had been seen and evaluated by Dr. Edmond who recommended coronary artery bypass grafting. He presented here yesterday for elective surgery. He had undergone quadruple coronary artery bypass grafting utilizing a MORAN to the LAD, left radial artery to the first obtuse marginal artery, reverse saphenous vein graft to the second diagonal artery and posterior descending artery. He remains intubated and on the mechanical ventilator this morning. Current settings are assist-control mode at a rate of 12, tidal volume 500, FiO2 50% and a PEEP of 5. Morning blood gases revealed a P O2 of 76, pCO2 39, pH 7.43. He was found to the cardiac output of 3.5. Cardiac index of 1.8. Mediastinal chest tube with 1.3 L output in the past 24 hours. Left chest tube 900 mL output. He has a right internal jugular Flaxton-Sara catheter in place. Right arterial line in place. Left radial harvest site dressing dry and intact. ADOLFO in place. He is currently on a milrinone drip at 0.2 mg/kg/m. Insulin drip at 3 units per hour. Norepinephrine at 0.05 mcg/kg/m. Marcus-Synephrine at 0.8 mcg/kg/m. Propofol at 25 mcg/kg/m. 0.9 normal saline at 50 MLS per hour. He did have episode of atrial fibrillation with rapid ventricular response and received digoxin IV. He also has received albumin. 2 units of fresh frozen plasma. One unit of packed red blood cells. White count 9.3. Hemoglobin 8.6. Platelet count 97,000. INR 1.2. Fibrinogen 216. Sodium 139. Potassium 4.0. Bicarb 25. Creatinine 0.81. Glucose 132. Total protein 4.7. Albumin 3.0. Chest x-ray reveals cardiomegaly and chronic parenchymal changes with a small left pleural effusion and left greater than right bibasilar acute atelectasis. Mediastinal and left chest tubes in place. No pneumothorax seen. Review of Systems ROS unobtainable: due to endotracheal tube Past Medical History Past Medical History: Atrial Fibrillation, Diabetes Mellitus, Hyperlipidemia, Hypertension, Prostate Disorder History of Any Multi-Drug Resistant Organisms: None Reported Past Surgical History: Heart Catheterization With Stent, Tonsillectomy Additional Past Surgical History / Comment(s): pitutary tumor removed,heart cath x2 Past Anesthesia/Blood Transfusion Reactions: No Reported Reaction Additional Past Anesthesia/Blood Transfusion Reaction / Comment(s): no hx blood transfusion Date of Last Stent Placement:: 2005 Smoking Status: Never smoker - Past Family History Father Family Medical History: Congestive Heart Failure (CHF), Coronary Artery Disease (CAD), Myocardial Infarction (MT) Additional Family Medical History / Comment(s): Premature coronary artery disease, CABG Mother Additional Family Medical History / Comment(s): Depression, committed suicide Medications and Allergies Home Medications Medication Instructions Recorded Confirmed Type Ascorbic Acid [Vitamin C] 500 mg PO DAILY 04/29/15 12/08/20 History Cholecalciferol [Vitamin D3 (25 25 mcg PO DAILY 04/29/15 12/08/20 History Mcg = 1000 Iu)] Esomeprazole Magnesium [NexIUM] 40 mg PO HS 04/29/15 12/08/20 History Ezetimibe/Simvastatin [Vytorin 1 tab PO DAILY 04/29/15 12/08/20 History 10-40 mg Tablet] Warfarin [Coumadin] 2.5 mg PO SUMOTUTHSA 04/29/15 12/08/20 History atenoloL 25 mg PO DAILY 04/29/15 12/08/20 History lisinopriL [Zestril] 20 mg PO DAILY 04/29/15 12/08/20 History Calcium Carbonate [Calcium] 300 mg PO DAILY 04/30/16 12/08/20 History Diltiazem Cd [Cardizem CD] 120 mg PO DAILY 06/10/20 12/08/20 History Latanoprost/Pf [Latanoprost 0.005% 1 drop BOTH EYES HS 06/10/20 12/08/20 History Eye Drop] Montelukast [Singulair] 10 mg PO HS 06/10/20 12/08/20 History Warfarin [Coumadin] 5 mg PO WEFR 06/10/20 12/08/20 History Aspirin 81 mg PO DAILY chew 10/30/20 12/08/20 Rx Isosorbide Mononitrate ER [Imdur] 30 mg PO DAILY #30 tab.er.24h 10/30/20 12/08/20 Rx Nitroglycerin Sl Tabs [Nitrostat] 0.4 mg SUBLINGUAL Q5M PRN #25 tab 10/30/20 12/08/20 Rx Aspirin EC [Ecotrin] 325 mg PO DAILY 12/16/20 12/16/20 History Allergies Allergy/AdvReac Type Severity Reaction Status Date / Time No Known Allergies Allergy Verified 12/16/20 06:05 Physical Exam Vitals: Vital Signs Temp Pulse Resp BP Pulse Ox 12/17/20 11:00 88 16 95 12/17/20 10:45 98 16 93 L 12/17/20 10:30 98 16 94 L 12/17/20 10:15 100 17 92 L 12/17/20 10:00 106 H 19 96 12/17/20 09:45 101 H 18 95 12/17/20 09:30 120 H 15 96 12/17/20 09:15 110 H 15 96 12/17/20 09:00 101 H 14 97 12/17/20 08:45 105 H 14 97 12/17/20 08:30 109 H 15 96 12/17/20 08:15 100 12 97 12/17/20 08:00 37.3 F L 106 H 12 97 12/17/20 07:45 96 12 98 12/17/20 07:39 100 12/17/20 07:30 92 12 100 12/17/20 07:28 101 H 12/17/20 07:15 98 14 100 12/17/20 07:00 105 H 15 100 12/17/20 06:00 103 H 17 99 12/17/20 05:00 112 H 18 95 12/17/20 04:00 99 12 96 12/17/20 03:00 105 H 14 96 12/17/20 02:38 98.2 F 101 H 15 108/55 95 12/17/20 02:05 98.2 F 108 H 13 99/62 97 12/17/20 02:00 120 H 12 99 12/17/20 01:55 98.2 F 107 H 14 91/55 99 12/17/20 01:33 98.2 F 108 H 13 99/55 100 12/17/20 01:23 36.6 F L 96 14 100/59 99 12/17/20 01:13 98.4 F 107 H 13 95/59 99 12/17/20 01:00 135 H 16 100 12/17/20 00:55 98.6 F 112 H 14 104/67 99 12/17/20 00:39 98.8 F 110 H 14 101/65 99 12/17/20 00:09 98.6 F 121 H 15 98/63 12/17/20 00:00 141 H 15 100 12/16/20 23:59 98.6 F 122 H 15 92/55 12/16/20 23:00 141 H 15 100 12/16/20 22:00 109 H 14 100 12/16/20 21:00 107 H 14 100 12/16/20 20:37 102 H 17 12/16/20 20:00 95 14 99 12/16/20 19:00 83 15 96 12/16/20 18:45 91 20 100 12/16/20 18:30 97.9 F 84 14 96 12/16/20 18:15 105 H 18 100 12/16/20 18:00 97.7 F 83 16 100 12/16/20 17:45 85 18 100 12/16/20 17:30 85 18 100 12/16/20 17:15 80 18 12/16/20 17:10 91 16 100 12/16/20 17:00 97.3 F L 79 16 12/16/20 16:50 82 17 12/16/20 16:40 70 818 H Intake and Output 12/16/20 12/17/20 12/17/20 22:59 06:59 14:59 Intake Total 8557.113 2918.098 514.878 Output Total 2310 1398 420 Balance -957.004 372.098 94.878 Intake: IV 334 472 245 .9NS Cardiac Output 130 250 50 0.9NS Pressure Bags 54 72 45 ACETAMINOPHEN IV (For NPO 100 100 ) 1,000 mg In Empty Bag 1 bag @ 400 mls/hr IVPB Q6HR [facility] Rx#:[id number] Sodium Chloride 0.9% 1, 150 000 ml @ 20 mls/hr IV . Q24H [facility] Rx#:[id number] ceFAZolin 2 gm In Sodium 50 50 Chloride 0.9% 50 ml @ 100 mls/hr IVPB Q8H [facility] Rx#: [id number] Intake, IV Titration 1018.996 365.098 269.878 Amount Albumin Human 5% 500 ml @ 750 Per Protocol IVPB ONCE ONE Rx#:[id number] Clevidipine Butyrate 25 34.767 mg In Empty Bag 1 bag @ 1 MG/HR 2 mls/hr IV .Q24H [facility] Rx#:[id number] Insulin Regular 100 unit 8.753 16.791 18.517 In Sodium Chloride 0.9% 100 ml @ Per Protocol IV .Q0M [facility] Rx#:[id number] Nitroglycerin-D5w Pmx 50 9.125 4.375 mg In Dextrose/Water 1 250ml.bag @ 5 MCG/MIN 1.5 mls/hr IV .Q24H [facility] Rx#: [id number] Norepinephrine 4 mg In 7.964 179.172 40.207 Sodium Chloride 0.9% 250 ml @ 0.05 MCG/KG/MIN 16. 478 mls/hr IV .[id number] [facility] Rx#:[id number] Phenylephrine 40 mg In 72.285 171.812 Sodium Chloride 0.9% 250 ml @ 0.5 MCG/KG/MIN 16. 478 mls/hr IV .[id number] [facility] Rx#:[id number] Sodium Chloride 0.9% 1, 150 000 ml @ Per Protocol IV ONCE ONE Rx#:[id number] propofoL 1,000 mg In 58.387 92.475 39.342 Empty Bag 1 bag @ Titrate IV .Q0M [facility] Rx#: [id number] Blood Product 933 Ffp 24 Cpd Unit 319 [id number] Ffp 24 Cpd Unit 304 [id number] Rc As-1 Unit 310 [id number] Output: Chest Tube Drainage 1050 1090 240 Left Pleural Chest Tube 280 600 120 Mediastinal Chest Tube X 770 490 120 2 Drainage 40 Left Forearm 40 Urine 1220 308 180 Other: Voiding Method Indwelling Catheter Indwelling Catheter Weight 97.4 kg ABP, PAP, CO, CI - Last 8 Hours Arterial Blood Pressure 110/55 Arterial Blood Pressure 104/55 Arterial Blood Pressure 120/59 Arterial Blood Pressure 111/56 Arterial Blood Pressure 118/56 Arterial Blood Pressure 140/72 Arterial Blood Pressure 133/63 Arterial Blood Pressure 112/60 Arterial Blood Pressure 120/62 Arterial Blood Pressure 117/63 Arterial Blood Pressure 112/58 Arterial Blood Pressure 107/57 Arterial Blood Pressure 118/63 Arterial Blood Pressure 108/58 Arterial Blood Pressure 122/61 Arterial Blood Pressure 121/62 Arterial Blood Pressure 113/58 Arterial Blood Pressure 110/56 Arterial Blood Pressure 93/56 Pulmonary Artery Pressure 31/19 Pulmonary Artery Pressure 33/18 Pulmonary Artery Pressure 30/21 Pulmonary Artery Pressure 35/18 Pulmonary Artery Pressure 37/22 Pulmonary Artery Pressure 39/23 Pulmonary Artery Pressure 37/21 Pulmonary Artery Pressure 33/22 Pulmonary Artery Pressure 33/20 Pulmonary Artery Pressure 31/19 Pulmonary Artery Pressure 31/17 Pulmonary Artery Pressure 31/18 Pulmonary Artery Pressure 35/22 Pulmonary Artery Pressure 36/21 Pulmonary Artery Pressure 35/21 Pulmonary Artery Pressure 38/23 Pulmonary Artery Pressure 34/23 Pulmonary Artery Pressure 38/23 Pulmonary Artery Pressure 42/25 Pulmonary Artery Pressure 36/24 Cardiac Output 3.5 Cardiac Output 3.2 Cardiac Output 3.2 Cardiac Output 3.2 Cardiac Output 3.2 Cardiac Output 3.5 Cardiac Output 3.2 Cardiac Output 3.5 Cardiac Output 3.4 Cardiac Index 1.8 Cardiac Index 1.6 Cardiac Index 1.6 Cardiac Index 1.6 Cardiac Index 1.6 Cardiac Index 1.8 Cardiac Index 1.6 Cardiac Index 1.8 Cardiac Index 1.7 GENERAL EXAM: Intubated, sedated 80-year-old gentleman on the mechanical ventilator, no apparent distress. HEAD: Normocephalic. EYES: Normal reaction of pupils, equal size. NOSE: Clear with pink turbinates. THROAT: Oral endotracheal tube and gastric tube secured in place No erythema or exudates. NECK: Right Flaxton-Sara catheter secured in place No masses, no JVD. CHEST: Sternal dressing dry and intact, split mediastinal chest tubes, left chest tube secured in place neck to to wall suction, no leak noted, AV epicardial pacemaker wires grounded LUNGS: Equal air entry with faint crackles in the bases. CVS: S1 and S2 normal with no audible murmur, regular rhythm. ABDOMEN: No hepatosplenomegaly, normal bowel sounds, no guarding or rigidity. SPINE: No scoliosis or deformity SKIN: No rashes CENTRAL NERVOUS SYSTEM: Sedated, tone is normal in all 4 extremities. EXTREMITIES: Left dressing to the harvest site, ADOLFO in place. Right radial arterial line in place. There is trace peripheral edema. No clubbing, no cyanosis. Peripheral pulses are intact. Results - Laboratory Findings CBC and BMP: 12/17/20 03:50 12/17/20 03:50 ABG ABG pH 7.43 (7.35-7.45) 12/17/20 05:10 ABG pCO2 39 mmHg (35-45) 12/17/20 05:10 ABG pO2 76 mmHg (83-108) L 12/17/20 05:10 ABG O2 Saturation 96.7 % (94-97) 12/17/20 05:10 PT/INR, D-dimer PT 12.3 sec (9.0-12.0) H 12/17/20 03:50 INR 1.2 (<1.2) H 12/17/20 03:50 Abnormal lab findings: Abnormal Labs 12/08/20 12/16/20 12/16/20 08:59 06:29 08:33 WBC RBC Hgb Hct Plt Count Neutrophils # Lymphocytes # PT INR APTT ABG pH ABG pCO2 ABG pO2 197 H ABG HCO3 ABG Total CO2 25 H ABG O2 Saturation 99.9 H ABG Hematocrit ABG Potassium ABG Ionized Calcium ABG Glucose 159 H ABG Lactic Acid Hemoglobin Chloride Creatinine Glucose POC Glucose (mg/dL) 149 H Calcium Alkaline Phosphatase Total Protein Albumin Arterial Blood Potassium Arterial Blood Glucose 159 H Crossmatch See Detail 12/16/20 12/16/20 12/16/20 10:35 11:27 12:04 WBC RBC Hgb Hct Plt Count Neutrophils # Lymphocytes # PT INR APTT ABG pH ABG pCO2 ABG pO2 188 H >420 H 251 H ABG HCO3 ABG Total CO2 26 H ABG O2 Saturation 99.9 H 100.0 H 100.0 H ABG Hematocrit 32 L 31 L ABG Potassium 5.2 H ABG Ionized Calcium 4.1 L 4.2 L ABG Glucose 188 H 138 H 143 H ABG Lactic Acid Hemoglobin 10.5 L 10.0 L Chloride Creatinine Glucose POC Glucose (mg/dL) Calcium Alkaline Phosphatase Total Protein Albumin Arterial Blood Potassium 5.2 H Arterial Blood Glucose 188 H 138 H 143 H Crossmatch 12/16/20 12/16/20 12/16/20 12:40 13:16 13:53 WBC RBC Hgb Hct Plt Count Neutrophils # Lymphocytes # PT INR APTT ABG pH ABG pCO2 ABG pO2 196 H 332 H 258 H ABG HCO3 ABG Total CO2 26 H 26 H 26 H ABG O2 Saturation 100.0 H 100.0 H 100.0 H ABG Hematocrit 30 L 29 L 28 L ABG Potassium 5.2 H 5.4 H 4.6 H ABG Ionized Calcium 4.1 L 4.0 L 4.1 L ABG Glucose 162 H 175 H 173 H ABG Lactic Acid Hemoglobin 9.7 L 9.5 L 9.1 L Chloride Creatinine Glucose POC Glucose (mg/dL) Calcium Alkaline Phosphatase Total Protein Albumin Arterial Blood Potassium 5.2 H 5.4 H 4.6 H Arterial Blood Glucose 162 H 175 H 173 H Crossmatch 12/16/20 12/16/20 12/16/20 14:34 15:16 15:43 WBC RBC Hgb Hct Plt Count Neutrophils # Lymphocytes # PT INR APTT ABG pH 7.34 L ABG pCO2 33 L ABG pO2 325 H 376 H 379 H ABG HCO3 ABG Total CO2 26 H ABG O2 Saturation 100.0 H 100.0 H 100.0 H ABG Hematocrit 25 L 29 L 31 L ABG Potassium ABG Ionized Calcium 3.9 L 3.8 L ABG Glucose 173 H 169 H 141 H ABG Lactic Acid 1.8 H 1.7 H 1.9 H Hemoglobin 8.1 L 9.5 L 10.1 L Chloride Creatinine Glucose POC Glucose (mg/dL) Calcium Alkaline Phosphatase Total Protein Albumin Arterial Blood Potassium Arterial Blood Glucose 173 H 169 H 141 H Crossmatch 12/16/20 12/16/20 12/16/20 16:35 16:35 16:35 WBC 13.5 H RBC 3.19 L Hgb 9.9 L D Hct 27.9 L Plt Count 94 L Neutrophils # 11.0 H Lymphocytes # PT 16.1 H INR 1.6 H APTT 35.9 H ABG pH ABG pCO2 ABG pO2 ABG HCO3 ABG Total CO2 ABG O2 Saturation ABG Hematocrit ABG Potassium ABG Ionized Calcium ABG Glucose ABG Lactic Acid Hemoglobin Chloride 110 H Creatinine 0.65 L Glucose 129 H POC Glucose (mg/dL) Calcium 8.2 L Alkaline Phosphatase 22 L Total Protein 4.2 L Albumin 2.7 L Arterial Blood Potassium Arterial Blood Glucose Crossmatch 12/16/20 12/16/20 12/16/20 16:37 18:13 18:31 WBC RBC Hgb Hct Plt Count Neutrophils # Lymphocytes # PT INR APTT ABG pH ABG pCO2 28 L ABG pO2 ABG HCO3 17 L ABG Total CO2 18 L ABG O2 Saturation 97.6 H ABG Hematocrit ABG Potassium ABG Ionized Calcium ABG Glucose ABG Lactic Acid Hemoglobin Chloride Creatinine Glucose POC Glucose (mg/dL) 133 H 162 H Calcium Alkaline Phosphatase Total Protein Albumin Arterial Blood Potassium Arterial Blood Glucose Crossmatch 12/16/20 12/16/20 12/16/20 19:40 19:42 20:25 WBC RBC 2.99 L Hgb 9.3 L Hct 26.6 L Plt Count 69 L Neutrophils # Lymphocytes # 0.9 L PT INR APTT ABG pH ABG pCO2 ABG pO2 172 H ABG HCO3 ABG Total CO2 ABG O2 Saturation 99.6 H ABG Hematocrit ABG Potassium ABG Ionized Calcium ABG Glucose ABG Lactic Acid Hemoglobin Chloride Creatinine Glucose POC Glucose (mg/dL) 166 H Calcium Alkaline Phosphatase Total Protein Albumin Arterial Blood Potassium Arterial Blood Glucose Crossmatch 12/16/20 12/16/20 12/16/20 21:20 22:00 22:07 WBC RBC 2.75 L Hgb 8.4 L Hct 24.1 L Plt Count 92 L Neutrophils # Lymphocytes # 0.9 L PT INR APTT ABG pH ABG pCO2 ABG pO2 ABG HCO3 ABG Total CO2 ABG O2 Saturation ABG Hematocrit ABG Potassium ABG Ionized Calcium ABG Glucose ABG Lactic Acid Hemoglobin Chloride Creatinine Glucose POC Glucose (mg/dL) 169 H 173 H Calcium Alkaline Phosphatase Total Protein Albumin Arterial Blood Potassium Arterial Blood Glucose Crossmatch 12/16/20 12/16/20 12/16/20 22:25 23:00 23:12 WBC RBC Hgb Hct Plt Count Neutrophils # Lymphocytes # PT INR APTT ABG pH ABG pCO2 31 L ABG pO2 143 H ABG HCO3 ABG Total CO2 ABG O2 Saturation 99.5 H ABG Hematocrit ABG Potassium ABG Ionized Calcium ABG Glucose ABG Lactic Acid Hemoglobin Chloride Creatinine Glucose POC Glucose (mg/dL) 157 H Calcium Alkaline Phosphatase Total Protein Albumin Arterial Blood Potassium Arterial Blood Glucose Crossmatch See Detail 12/17/20 12/17/20 12/17/20 00:19 01:25 02:06 WBC RBC Hgb Hct Plt Count Neutrophils # Lymphocytes # PT INR APTT ABG pH ABG pCO2 ABG pO2 ABG HCO3 ABG Total CO2 ABG O2 Saturation ABG Hematocrit ABG Potassium ABG Ionized Calcium ABG Glucose ABG Lactic Acid Hemoglobin Chloride Creatinine Glucose POC Glucose (mg/dL) 151 H 153 H 151 H Calcium Alkaline Phosphatase Total Protein Albumin Arterial Blood Potassium Arterial Blood Glucose Crossmatch 12/17/20 12/17/20 12/17/20 03:12 03:50 03:50 WBC RBC 2.71 L Hgb 8.6 L Hct 24.1 L Plt Count 97 L Neutrophils # Lymphocytes # PT INR APTT ABG pH ABG pCO2 ABG pO2 ABG HCO3 ABG Total CO2 ABG O2 Saturation ABG Hematocrit ABG Potassium ABG Ionized Calcium ABG Glucose ABG Lactic Acid Hemoglobin Chloride 108 H Creatinine Glucose 132 H POC Glucose (mg/dL) 149 H Calcium 7.8 L Alkaline Phosphatase 31 L Total Protein 4.7 L Albumin 3.0 L Arterial Blood Potassium Arterial Blood Glucose Crossmatch 12/17/20 12/17/20 12/17/20 03:50 03:54 05:10 WBC RBC Hgb Hct Plt Count Neutrophils # Lymphocytes # PT 12.3 H INR 1.2 H APTT 31.9 H ABG pH ABG pCO2 ABG pO2 76 L ABG HCO3 26 H ABG Total CO2 27 H ABG O2 Saturation ABG Hematocrit ABG Potassium ABG Ionized Calcium ABG Glucose ABG Lactic Acid Hemoglobin Chloride Creatinine Glucose POC Glucose (mg/dL) 150 H Calcium Alkaline Phosphatase Total Protein Albumin Arterial Blood Potassium Arterial Blood Glucose Crossmatch 12/17/20 12/17/20 12/17/20 05:13 06:17 07:12 WBC RBC Hgb Hct Plt Count Neutrophils # Lymphocytes # PT INR APTT ABG pH ABG pCO2 ABG pO2 ABG HCO3 ABG Total CO2 ABG O2 Saturation ABG Hematocrit ABG Potassium ABG Ionized Calcium ABG Glucose ABG Lactic Acid Hemoglobin Chloride Creatinine Glucose POC Glucose (mg/dL) 136 H 124 H 121 H Calcium Alkaline Phosphatase Total Protein Albumin Arterial Blood Potassium Arterial Blood Glucose Crossmatch 12/17/20 12/17/20 12/17/20 08:28 09:34 10:07 WBC RBC Hgb Hct Plt Count Neutrophils # Lymphocytes # PT INR APTT ABG pH ABG pCO2 ABG pO2 ABG HCO3 ABG Total CO2 ABG O2 Saturation ABG Hematocrit ABG Potassium ABG Ionized Calcium ABG Glucose ABG Lactic Acid Hemoglobin Chloride Creatinine Glucose POC Glucose (mg/dL) 112 H 135 H 135 H Calcium Alkaline Phosphatase Total Protein Albumin Arterial Blood Potassium Arterial Blood Glucose Crossmatch 12/17/20 11:11 WBC RBC Hgb Hct Plt Count Neutrophils # Lymphocytes # PT INR APTT ABG pH ABG pCO2 ABG pO2 ABG HCO3 ABG Total CO2 ABG O2 Saturation ABG Hematocrit ABG Potassium ABG Ionized Calcium ABG Glucose ABG Lactic Acid Hemoglobin Chloride Creatinine Glucose POC Glucose (mg/dL) 127 H Calcium Alkaline Phosphatase Total Protein Albumin Arterial Blood Potassium Arterial Blood Glucose Crossmatch - Diagnostic Findings Chest x-ray: image reviewed Assessment and Plan Assessment: 1 Severe triple-vessel coronary artery disease status post coronary artery bypass grafting 4. Postoperative day #1. 2 Mechanical ventilator management, expected outcome of surgery 3 Previous history of coronary artery disease with PCI to the LAD in 2005 4 History of atrial fibrillation, anticoagulated with warfarin in the outpatient setting 5 Hypertension 6 Hyperlipidemia 7 Diabetes mellitus 8 History of obstructive sleep apnea, CPAP 9 History of pituitary tumor 10 Lifelong nonsmoker. FEV1 value of 91% of predicted Plan: The patient was seen and evaluated by Dr. Vásquez Chest x-ray, ABGs and labs reviewed Once the pressors are weaned off and the patient is stable will proceed with daily interruption of sedation and obtain weaning parameters May plan for extubation this morning Continue bronchodilators, initiate incentive spirometer We will continue to follow and make further recommendations based on the katey bryan's clinical status I, the cosigning physician, performed a history & physical examination of the patient. Lungs sounds faint crackles in the posterior bases. Maintaining good O2 saturations in the 90s on 50% FiO2 via the mechanical ventilator. I discussed the assessment and plan of care with my nurse practitioner, Alisson Otero. I attest to the above consultation as dictated by her. Time with Patient: Greater than 30
--- NOTE | 2020-12-17 11:54 | P.CRDCN ---
History of Present Illness History of present illness: HISTORY OF PRESENTING ILLNESS This is a pleasant 80-year-old male past medical history significant coronary artery disease s/p PCI to LAD 2005, chronic persistent atrial fibrillation on coumadin, hypertension, type 2 diabetes, dyslipidemia, obstructive sleep apnea, family history of coronary artery disease. He follows in the office with Dr. Mullins. We have been asked to see in consultation for post cardiac surgery. Patient underwent cardiac catheterization in October 2020 and found to have severe triple-vessel disease and was referred to CT surgery. Patient admitted to the hospital for coronary artery bypass grafting. Echocardiogram 07/2019, patient with normal LV function, mild tricuspid regurgitation, mild mitral regurgitation. 12/16/20 Patient underwent 4 vessel CABG using MORAN to LAD, left radial artery from the aorta to the first obtuse marginal artery, reverse saphenous vein graft from the aorta to the second diagonal artery, reverse saphenous vein graft from the aorta to the posterior descending artery, endoscopic harvesting of the left radial artery, endoscopic harvesting of the left greater saphenous vein from ankle to the groin, exclusion of the left atrial appendage. Patient is POD #1, he is seen in the intensive care unit, he is intubated, sedated on mechanical ventilator. Telemetry reviewed, patient in atrial fibrillation, HR trends mostly 80s-110. He is currently maintained on aspirin and milligrams daily, atorvastatin 40 mg daily, Plavix 75 mg daily, IV insulin, metoprolol tartrate 12.5mg twice a day, Primacor 0.2mc/kg/min, Levo 0.03mcg/kg/min, Phenylephrine 0.7mcg/kg/min, propofol 10mcg/kg/min. Patient did receive IV digoxin x 3. Laboratory data WBC 5.3, hemoglobin 8.6, platelets 37, sodium 139, potassium 4.0, BUN 13, serum creatinine 0.8, magnesium 2.3. REVIEW OF SYSTEMS At the time of my exam: Unable to perform review of systems, patient intubated, sedated PHYSICAL EXAMINATION Blood pressure 110/55 HR 88 CONSTITUTIONAL: No apparent distress. CHEST EXAMINATION: Lungs are diminished bilaterally anteriorly to auscultation. HEART EXAMINATION: Irregular rate and rhythm. S1, S2 heard. No murmurs, gallops or rub. ABDOMEN: Soft, nontender. Positive bowel sounds. EXTREMITIES: 2+ peripheral pulses, no lower extremity edema and no calf tenderness. : Barrow placed with dark rust color urine SKIN: warm, dry NEUROLOGIC EXAMINATION: Patient is intubated, sedated LINES: Right internal jugular Mehama/Cordis, Right radial arterial line, and chest tubes present ASSESSMENT Coronary artery disease s/p 4 vessel CABG on 12/16/20 and prior PCI to LAD 2005 Chronic persistent atrial fibrillation, outpatient on coumadin Hypertension Type 2 diabetes Dyslipidemia Obstructive sleep apnea Family history of coronary artery disease. PLAN -Continue aspirin, statin, Plavix, metoprolol tartrate -Wean from mechanical ventilation as tolerated -Post operative management per CT Surgery -We will continue to follow Nurse Practitioner note has been reviewed, I agree with a documented findings and plan of care. Patient was seen and examined. Past Medical History Past Medical History: Atrial Fibrillation, Diabetes Mellitus, Hyperlipidemia, Hypertension, Prostate Disorder History of Any Multi-Drug Resistant Organisms: None Reported Past Surgical History: Heart Catheterization With Stent, Tonsillectomy Additional Past Surgical History / Comment(s): pitutary tumor removed,heart cath x2 Past Anesthesia/Blood Transfusion Reactions: No Reported Reaction Additional Past Anesthesia/Blood Transfusion Reaction / Comment(s): no hx blood transfusion Date of Last Stent Placement:: 2005 Smoking Status: Never smoker - Past Family History Father Family Medical History: Congestive Heart Failure (CHF), Coronary Artery Disease (CAD), Myocardial Infarction (NH) Additional Family Medical History / Comment(s): Premature coronary artery disease, CABG Mother Additional Family Medical History / Comment(s): Depression, committed suicide Medications and Allergies Home Medications Medication Instructions Recorded Confirmed Type Ascorbic Acid [Vitamin C] 500 mg PO DAILY 04/29/15 12/08/20 History Cholecalciferol [Vitamin D3 (25 25 mcg PO DAILY 04/29/15 12/08/20 History Mcg = 1000 Iu)] Esomeprazole Magnesium [NexIUM] 40 mg PO HS 04/29/15 12/08/20 History Ezetimibe/Simvastatin [Vytorin 1 tab PO DAILY 04/29/15 12/08/20 History 10-40 mg Tablet] Warfarin [Coumadin] 2.5 mg PO SUMOTUTHSA 04/29/15 12/08/20 History atenoloL 25 mg PO DAILY 04/29/15 12/08/20 History lisinopriL [Zestril] 20 mg PO DAILY 04/29/15 12/08/20 History Calcium Carbonate [Calcium] 300 mg PO DAILY 04/30/16 12/08/20 History Diltiazem Cd [Cardizem CD] 120 mg PO DAILY 06/10/20 12/08/20 History Latanoprost/Pf [Latanoprost 0.005% 1 drop BOTH EYES HS 06/10/20 12/08/20 History Eye Drop] Montelukast [Singulair] 10 mg PO HS 06/10/20 12/08/20 History Warfarin [Coumadin] 5 mg PO WEFR 06/10/20 12/08/20 History Aspirin 81 mg PO DAILY chew 10/30/20 12/08/20 Rx Isosorbide Mononitrate ER [Imdur] 30 mg PO DAILY #30 tab.er.24h 10/30/20 12/08/20 Rx Nitroglycerin Sl Tabs [Nitrostat] 0.4 mg SUBLINGUAL Q5M PRN #25 tab 10/30/20 12/08/20 Rx Aspirin EC [Ecotrin] 325 mg PO DAILY 12/16/20 12/16/20 History Allergies Allergy/AdvReac Type Severity Reaction Status Date / Time No Known Allergies Allergy Verified 12/16/20 06:05 Physical Exam Vitals: Vital Signs Temp Pulse Resp BP Pulse Ox 12/17/20 07:28 101 H 12/17/20 07:00 105 H 15 100 12/17/20 06:00 103 H 17 99 12/17/20 05:00 112 H 18 95 12/17/20 04:00 99 12 96 12/17/20 03:00 105 H 14 96 12/17/20 02:38 98.2 F 101 H 15 108/55 95 12/17/20 02:05 98.2 F 108 H 13 99/62 97 12/17/20 02:00 120 H 12 99 12/17/20 01:55 98.2 F 107 H 14 91/55 99 12/17/20 01:33 98.2 F 108 H 13 99/55 100 12/17/20 01:23 36.6 F L 96 14 100/59 99 12/17/20 01:13 98.4 F 107 H 13 95/59 99 12/17/20 01:00 135 H 16 100 12/17/20 00:55 98.6 F 112 H 14 104/67 99 10/06/21 00:39 98.8 F 110 H 14 101/65 99 12/17/20 00:09 98.6 F 121 H 15 98/63 12/17/20 00:00 141 H 15 100 12/16/20 23:59 98.6 F 122 H 15 92/55 12/16/20 23:00 141 H 15 100 12/16/20 22:00 109 H 14 100 12/16/20 21:00 107 H 14 100 12/16/20 20:37 102 H 17 12/16/20 20:00 95 14 99 12/16/20 19:00 83 15 96 12/16/20 18:45 91 20 100 12/16/20 18:30 97.9 F 84 14 96 12/16/20 18:15 105 H 18 100 12/16/20 18:00 97.7 F 83 16 100 12/16/20 17:45 85 18 100 12/16/20 17:30 85 18 100 12/16/20 17:15 80 18 12/16/20 17:10 91 16 100 12/16/20 17:00 97.3 F L 79 16 12/16/20 16:50 82 17 12/16/20 16:40 70 818 H Intake and Output 12/16/20 12/17/20 12/17/20 22:59 06:59 14:59 Intake Total 8817.002 9481.098 39 Output Total 2310 1398 60 Balance -957.004 372.098 -21 Intake: IV 334 472 39 .9NS Cardiac Output 130 250 30 0.9NS Pressure Bags 54 72 9 ACETAMINOPHEN IV (For NPO 100 100 ) 1,000 mg In Empty Bag 1 bag @ 400 mls/hr IVPB Q6HR [facility] Rx#:[id number] ceFAZolin 2 gm In Sodium 50 50 Chloride 0.9% 50 ml @ 100 mls/hr IVPB Q8H [facility] Rx#: [id number] Intake, IV Titration 1018.996 365.098 Amount Albumin Human 5% 500 ml @ 750 Per Protocol IVPB ONCE ONE Rx#:[id number] Clevidipine Butyrate 25 34.767 mg In Empty Bag 1 bag @ 1 MG/HR 2 mls/hr IV .Q24H [facility] Rx#:[id number] Insulin Regular 100 unit 8.753 16.791 In Sodium Chloride 0.9% 100 ml @ Per Protocol IV .Q0M [facility] Rx#:[id number] Nitroglycerin-D5w Pmx 50 9.125 4.375 mg In Dextrose/Water 1 250ml.bag @ 5 MCG/MIN 1.5 mls/hr IV .Q24H [facility] Rx#: [id number] Norepinephrine 4 mg In 7.964 179.172 Sodium Chloride 0.9% 250 ml @ 0.05 MCG/KG/MIN 16. 478 mls/hr IV .[id number] [facility] Rx#:[id number] Phenylephrine 40 mg In 72.285 Sodium Chloride 0.9% 250 ml @ 0.5 MCG/KG/MIN 16. 478 mls/hr IV .[id number] [facility] Rx#:[id number] Sodium Chloride 0.9% 1, 150 000 ml @ Per Protocol IV ONCE ONE Rx#:[id number] propofoL 1,000 mg In 58.387 92.475 Empty Bag 1 bag @ Titrate IV .Q0M [facility] Rx#: [id number] Blood Product 933 Ffp 24 Cpd Unit 319 [id number] Ffp 24 Cpd Unit 304 [id number] Rc As-1 Unit 310 [id number] Output: Chest Tube Drainage 1050 1090 30 Left Pleural Chest Tube 280 600 20 Mediastinal Chest Tube X 770 490 10 2 Drainage 40 Left Forearm 40 Urine 1220 308 30 Other: Voiding Method Indwelling Catheter Indwelling Catheter Weight 97.4 kg ABP, PAP, CO, CI - Last 8 Hours Arterial Blood Pressure 113/58 Arterial Blood Pressure 110/56 Arterial Blood Pressure 93/56 Arterial Blood Pressure 91/55 Arterial Blood Pressure 101/65 Arterial Blood Pressure 110/67 Arterial Blood Pressure 89/55 Pulmonary Artery Pressure 34/23 Pulmonary Artery Pressure 38/23 Pulmonary Artery Pressure 42/25 Pulmonary Artery Pressure 36/24 Pulmonary Artery Pressure 36/23 Pulmonary Artery Pressure 35/28 Pulmonary Artery Pressure 35/24 Pulmonary Artery Pressure 29/21 Cardiac Output 3.5 Cardiac Output 3.2 Cardiac Output 3.5 Cardiac Output 3.4 Cardiac Output 3.4 Cardiac Output 3.2 Cardiac Output 3.2 Cardiac Output 3.1 Cardiac Index 1.8 Cardiac Index 1.6 Cardiac Index 1.8 Cardiac Index 1.7 Cardiac Index 1.7 Cardiac Index 1.6 Cardiac Index 1.6 Cardiac Index 1.6 Results 12/17/20 03:50 12/17/20 03:50 Cardiac Enzymes 12/16/20 12/17/20 Range/Units 16:35 03:50 AST 45 41 (17-59) U/L Coagulation 12/16/20 12/16/20 12/17/20 Range/Units 06:25 16:35 03:50 PT 12.0 16.1 H 12.3 H (9.0-12.0) sec APTT 25.9 35.9 H 31.9 H (22.0-30.0) sec CBC 12/16/20 12/16/20 12/16/20 Range/Units 16:35 19:40 22:00 WBC 13.5 H 8.5 8.7 (3.8-10.6) k/uL RBC 3.19 L 2.99 L 2.75 L (4.30-5.90) m/uL Hgb 9.9 L D 9.3 L 8.4 L (13.0-17.5) gm/dL Hct 27.9 L 26.6 L 24.1 L (39.0-53.0) % Plt Count 94 L 69 L 92 L (150-450) k/uL 12/17/20 Range/Units 03:50 WBC 9.3 (3.8-10.6) k/uL RBC 2.71 L (4.30-5.90) m/uL Hgb 8.6 L (13.0-17.5) gm/dL Hct 24.1 L (39.0-53.0) % Plt Count 97 L (150-450) k/uL Comprehensive Metabolic Panel 12/16/20 12/16/20 12/17/20 Range/Units 16:35 22:00 03:50 Sodium 139 139 (137-145) mmol/L Potassium 4.3 4.3 4.0 (3.5-5.1) mmol/L Chloride 110 H 108 H (98-107) mmol/L Carbon Dioxide 23 25 (22-30) mmol/L BUN 13 13 (9-20) mg/dL Creatinine 0.65 L 0.81 (0.66-1.25) mg/dL Glucose 129 H 132 H (74-99) mg/dL Calcium 8.2 L 7.8 L (8.4-10.2) mg/dL AST 45 41 (17-59) U/L ALT 12 12 (4-49) U/L Alkaline Phosphatase 22 L 31 L (38-126) U/L Total Protein 4.2 L 4.7 L (6.3-8.2) g/dL Albumin 2.7 L 3.0 L (3.5-5.0) g/dL Current Medications Generic Name Dose Route Start Last Admin Trade Name Freq PRN Reason Stop Dose Admin Hydrocodone Bitart/Acetaminophen 2 each 12/17/20 04:02 Hydrocodone/Apap 5-325mg 1 Each Tab PO Q4HR PRN Severe Pain Hydrocodone Bitart/Acetaminophen 1 each 12/17/20 04:02 Hydrocodone/Apap 5-325mg 1 Each Tab PO Q4HR PRN Moderate Pain Albuterol/Ipratropium 3 ml 12/16/20 16:12 Ipratropium-Albuterol 3 Ml Neb INHALATION RT-Q2H PRN Shortness Of Breath Or Wheezing Albuterol/Ipratropium 3 ml 12/17/20 08:00 12/17/20 07:23 Ipratropium-Albuterol 3 Ml Neb INHALATION 3 ml RT-QID [facility] Administration Ascorbic Acid 500 mg 12/17/20 09:00 Ascorbic Acid 500 Mg Tab PO DAILY [facility] Aspirin 325 mg 12/17/20 09:00 Aspirin 325 Mg Tab PO DAILY [facility] Atorvastatin Calcium 40 mg 12/17/20 09:00 Atorvastatin 40 Mg Tab PO DAILY [facility] Benzocaine/Menthol 1 each 12/16/20 16:12 Benzocaine/Menthol Lozeng 1 Each Lozenge MUCOUS MEM Q2H PRN Sore Throat Bisacodyl 10 mg 12/17/20 09:00 Bisacodyl 10 Mg Supp RECTAL DAILY PRN Constipation Cholecalciferol 25 mcg 12/17/20 09:00 Cholecalciferol 25 Mcg (1000 Iu) Tablet PO DAILY [facility] Clopidogrel Bisulfate 75 mg 12/17/20 09:00 Clopidogrel 75 Mg Tab PO DAILY [facility] Heparin Sodium (Porcine) 5,000 unit 12/16/20 19:00 12/17/20 03:37 Heparin Sodium,Porcine/Pf 5,000 Unit/0.5 Ml Syringe SQ Not Given Q8H [facility] Hydralazine HCl 10 mg 12/16/20 16:12 Hydralazine Hcl 20 Mg/Ml 1 Ml Vial IVP Q1H PRN Blood Pressure - High Milrinone Lactate/Dextrose 20 100 mls @ 5.19 mls/hr 12/16/20 16:15 12/16/20 16:40 mg/ IV Solution IV 0.2 mcg/kg/min .[id number] [facility] 5.19 mls/hr Administration 0.2 MCG/KG/MIN Norepinephrine Bitartrate 4 mg 254 mls @ 16.478 mls/hr 12/16/20 16:15 12/17/20 06:48 / Sodium Chloride IV 0.05 mcg/kg/min .[id number] [facility] 16.478 mls/hr Administration Protocol 0.05 MCG/KG/MIN Clevidipine 25 mg/ IV Solution 50 mls @ 2 mls/hr 12/16/20 16:12 12/16/20 19:50 IV 0 mg/hr .Q24H [facility] 0 mls/hr Titration Protocol 1 MG/HR Amiodarone HCl 150 mg/ 103 mls @ 618 mls/hr 12/16/20 16:12 Dextrose/Water IV .Q10M PRN A.FIB/FLUTTER Protocol Amiodarone HCl 360 mg/ 207.2 mls @ 34.533 mls/hr 12/16/20 16:12 Dextrose/Water IV .Q6H PRN A.FIB/FLUTTER Protocol 1 MG/MIN Amiodarone HCl 450 mg/ 250 mls @ 16.667 mls/hr 12/16/20 16:12 Dextrose/Water IV .Q15H PRN A.FIB/FLUTTER Protocol 0.5 MG/MIN Albumin Human 250 ml/ IV 250 mls @ 250 mls/hr 12/16/20 16:12 12/16/20 22:14 Solution IVPB 12/18/20 16:13 250 mls/hr Q1HR PRN Administration For Volume Protocol Calcium Gluconate 2 gm/ Sodium 120 mls @ 100 mls/hr 12/16/20 16:12 Chloride IVPB 01/11/21 16:13 ONCE PRN Ionized Calcium less than 4.4 Nitroglycerin/Dextrose 50 mg/ 250 mls @ 1.5 mls/hr 12/16/20 16:12 12/17/20 03:19 IV Solution IV 0 mcg/min .Q24H [facility] 0 mls/hr Infusion 5 MCG/MIN Propofol 1,000 mg/ IV Solution 100 mls @ 0 mls/hr 12/16/20 16:12 12/17/20 06:41 IV 25 mcg/kg/min .Q0M [facility] 12.975 mls/hr Administration Protocol Titrate Dexmedetomidine HCl 400 mcg/ 100 mls @ 0 mls/hr 12/16/20 16:12 IV Solution IV 12/17/20 16:17 .Q0M [facility] Protocol Titrate Insulin Human Regular 100 unit 101 mls @ 0 mls/hr 12/16/20 16:12 12/17/20 03:55 / Sodium Chloride IV 4 units/hr .Q0M [facility] 4.04 mls/hr Titration Protocol Per Protocol Sodium Chloride 1,000 mls @ 50 mls/hr 12/16/20 16:12 12/16/20 17:36 Saline 0.9% IV 50 mls/hr .Q20H [facility] Administration Cefazolin Sodium 2 gm/ Sodium 50 mls @ 100 mls/hr 12/16/20 19:00 12/17/20 03:21 Chloride IVPB 12/17/20 11:29 100 mls/hr Q8H [facility] Administration Phenylephrine HCl 40 mg/ 254 mls @ 16.478 mls/hr 12/16/20 23:30 12/17/20 03:19 Sodium Chloride IV 0.8 mcg/kg/min .[id number] [facility] 26.365 mls/hr Titration Protocol 0.5 MCG/KG/MIN Latanoprost 1 drops 12/16/20 21:00 12/16/20 21:01 Latanoprost 0.005% Ophth Drops 2.5 Ml Btl BOTH EYES 1 drops HS [facility] Administration Magnesium Hydroxide 2,400 mg 12/17/20 09:00 Magnesium Hydroxide 2,400 Mg/10 Ml Cup PO BID PRN Constipation Metoclopramide HCl 10 mg 12/16/20 16:12 Metoclopramide 5 Mg/Ml 2 Ml Vial IVP Q4H PRN Nausea And Vomiting Metoprolol Tartrate 12.5 mg 12/17/20 09:00 Metoprolol Tartrate 12.5 Mg Tab PO BID [facility] Miscellaneous Information 1 each 12/16/20 16:12 Potassium Replacement Protocol 1 Each Misc MISCELLANE DAILY PRN Per Protocol Protocol Miscellaneous Information 1 each 12/16/20 16:12 Magnesium Replacement Protocol 1 Each Misc MISCELLANE DAILY PRN Per Protocol Protocol Miscellaneous Information 1 each 12/16/20 16:12 Phosphorus Replacement Protoco 1 Each Misc MISCELLANE DAILY PRN Per Protocol Protocol Montelukast Sodium 10 mg 12/16/20 21:00 12/16/20 21:00 Montelukast 10 Mg Tab PO 10 mg HS [facility] Administration Morphine Sulfate 2 mg 12/16/20 16:12 Morphine Sulfate 2 Mg/Ml Syringe IVP Q2H PRN Severe Pain Ondansetron HCl 4 mg 12/16/20 16:12 Ondansetron 4 Mg/2 Ml Vial IVP Q6HR PRN Nausea And Vomiting Pantoprazole Sodium 40 mg 12/17/20 09:00 Pantoprazole 40 Mg/10 Ml Vial IVP DAILY [facility] Senna/Docusate Sodium 2 each 12/17/20 21:00 Sennosides-Docusate Sodium 1 Each Tab PO HS [facility] Sodium Chloride 10 ml 12/16/20 21:00 12/16/20 21:02 Sodium Chloride 0.9% Flush 10 Ml Syringe IV 10 ml BID [facility] Administration Intake and Output 12/16/20 12/17/20 12/17/20 22:59 06:59 14:59 Intake Total 4941.479 5762.098 39 Output Total 2310 1398 60 Balance -957.004 372.098 -21 Intake: IV 334 472 39 .9NS Cardiac Output 130 250 30 0.9NS Pressure Bags 54 72 9 ACETAMINOPHEN IV (For NPO 100 100 ) 1,000 mg In Empty Bag 1 bag @ 400 mls/hr IVPB Q6HR [facility] Rx#:[id number] ceFAZolin 2 gm In Sodium 50 50 Chloride 0.9% 50 ml @ 100 mls/hr IVPB Q8H [facility] Rx#: [id number] Intake, IV Titration 1018.996 365.098 Amount Albumin Human 5% 500 ml @ 750 Per Protocol IVPB ONCE ONE Rx#:[id number] Clevidipine Butyrate 25 34.767 mg In Empty Bag 1 bag @ 1 MG/HR 2 mls/hr IV .Q24H [facility] Rx#:[id number] Insulin Regular 100 unit 8.753 16.791 In Sodium Chloride 0.9% 100 ml @ Per Protocol IV .Q0M [facility] Rx#:[id number] Nitroglycerin-D5w Pmx 50 9.125 4.375 mg In Dextrose/Water 1 250ml.bag @ 5 MCG/MIN 1.5 mls/hr IV .Q24H [facility] Rx#: [id number] Norepinephrine 4 mg In 7.964 179.172 Sodium Chloride 0.9% 250 ml @ 0.05 MCG/KG/MIN 16. 478 mls/hr IV .[id number] [facility] Rx#:[id number] Phenylephrine 40 mg In 72.285 Sodium Chloride 0.9% 250 ml @ 0.5 MCG/KG/MIN 16. 478 mls/hr IV .[id number] [facility] Rx#:[id number] Sodium Chloride 0.9% 1, 150 000 ml @ Per Protocol IV ONCE ONE Rx#:[id number] propofoL 1,000 mg In 58.387 92.475 Empty Bag 1 bag @ Titrate IV .Q0M [facility] Rx#: [id number] Blood Product 933 Ffp 24 Cpd Unit 319 [id number] Ffp 24 Cpd Unit 304 [id number] Rc As-1 Unit 310 [id number] Output: Chest Tube Drainage 1050 1090 30 Left Pleural Chest Tube 280 600 20 Mediastinal Chest Tube X 770 490 10 2 Drainage 40 Left Forearm 40 Urine 1220 308 30 Other: Voiding Method Indwelling Catheter Indwelling Catheter Weight 97.4 kg 12/17/20 03:50 12/17/20 03:50
[2020-12-17 12:18] LABS: Glucose,Whole Blood 124 mg/dL (75-99)
[2020-12-17 13:27] LABS: Glucose,Whole Blood 115 mg/dL (75-99)
--- NOTE | 2020-12-17 13:43 | P.CONS ---
History of Present Illness - Reason for Consult Consult date: 12/17/20 - History of Present Illness HISTORY OF PRESENT ILLNESS This is a 80-year-old male patient of Dr. Campos and Dr. Mullins with past medical history of chronic persistent atrial fibrillation, diabetes mellitus type 2, hypertension, hyperlipidemia, history of pituitary tumor resection, obstructive sleep apnea on BiPAP, gastroesophageal reflux disease, benign prostatic hypertrophy. He should also has history of coronary artery disease status post PCI to the LAD in 2005, heart catheterization in October 2020 found severe triple-vessel disease, subsequently admitted to the hospital for elective beata nary artery bypass grafting 12/16 MORAN to LAD, left radial artery from the aorta to the first obtuse marginal artery, reverse saphenous vein graft from the aorta to the second diagonal artery, reverse saphenous vein graft from the aorta to the posterior descending artery, endoscopic harvesting of the left radial artery, endoscopic harvesting of the left greater saphenous vein from ankle to the groin, exclusion of the left atrial appendage. Patient is seen today in the intensive care unit. He remains intubated and on mechanical ventilation but has done well with sedation holiday and is expected to be extubated this morning. Patient's is at the bedside. He is currently on insulin drip at 3 units per hour. Vent settings are tidal volume 500, FiO2 50 and PEEP of 5. 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 REVIEW OF SYSTEMS Unable to obtain due to intubation and mechanical ventilation SOCIAL HISTORY Patient is a lifelong nonsmoker, occasional alcohol use, no illicit drug use. He lives at home with his . He does not utilize cane or walker for ambulation. FAMILY HISTORY Mother at age 80 from suicide with long history of mental health issues. Father at age 60 from coronary artery disease. Patient has one brother is alive with history of coronary artery disease. No history of CVA. Patient does not have any sisters. Patient has 2 children with no major medical problems. PHYSICAL EXAMINATION Gen: This is a 80-year-old male. He is resting in ICU bed, on mechanical ventilation and appears to be in no acute distress. HEENT: Head is atraumatic, normocephalic. Pupils equal, round. Sclerae is anicteric. Oral ET tube in place. Right IJ Cordis NECK: Supple. No JVD. No lymphadenopathy. No thyromegaly. LUNGS: Diminished bilaterally. No wheezes or rhonchi. No intercostal retractions. Chest tubes in place. HEART: Irregular rate and rhythm. No murmur. ABDOMEN: Soft. Bowel sounds are present. No masses. No tenderness. EXTREMITIES: No pedal edema. No calf tenderness. NEUROLOGICAL: Patient is awake, alert and oriented x3. Cranial nerves 2 through 12 are grossly intact. No neuro deficits noted. ASSESSMENT AND PLAN 1. Coronary artery disease status post 4 vessel CABG 12/16. Continue current management per cardio thoracic surgery Diplopia. Continue aspirin 81 mg daily, Lipitor 40 mg daily, Lopressor 12.5 mg twice daily 2. Chronic persistent atrial fibrillation. 3. Diabetes mellitus type 2. Continue insulin drip for now, plan to transition tomorrow 4. Hypertension. Atenolol and lisinopril on hold. 5. Hyperlipidemia. 6. History of pituitary gland resection. 7. Obstructive sleep apnea on BiPAP. 8. Gastroesophageal reflux disease. 9. Benign prostatic hypertrophy. Barrow catheter for now. Monitor for urinary retention. Patient admitted to the hospital for minimum of 2 night stay. DISCHARGE PLAN Home most likely with homecare. Impression and plan of care have been directed as dictated by the signing physician. Erica Alfredo nurse practitioner acting as scribe for signing physician. Past Medical History Past Medical History: Atrial Fibrillation, Diabetes Mellitus, Hyperlipidemia, Hypertension, Prostate Disorder History of Any Multi-Drug Resistant Organisms: None Reported Past Surgical History: Heart Catheterization With Stent, Tonsillectomy Additional Past Surgical History / Comment(s): pitutary tumor removed,heart cath x2 Past Anesthesia/Blood Transfusion Reactions: No Reported Reaction Additional Past Anesthesia/Blood Transfusion Reaction / Comm: no hx blood transfusion Date of Last Stent Placement:: 2005 Smoking Status: Never smoker - Past Family History Father Family Medical History: Congestive Heart Failure (CHF), Coronary Artery Disease (CAD), Myocardial Infarction (CO) Additional Family Medical History / Comment(s): Premature coronary artery disease, CABG Mother Additional Family Medical History / Comment(s): Depression, committed suicide Medications and Allergies Home Medications Medication Instructions Recorded Confirmed Type Ascorbic Acid [Vitamin C] 500 mg PO DAILY 04/29/15 12/08/20 History Cholecalciferol [Vitamin D3 (25 25 mcg PO DAILY 04/29/15 12/08/20 History Mcg = 1000 Iu)] Esomeprazole Magnesium [NexIUM] 40 mg PO HS 04/29/15 12/08/20 History Ezetimibe/Simvastatin [Vytorin 1 tab PO DAILY 04/29/15 12/08/20 History 10-40 mg Tablet] Warfarin [Coumadin] 2.5 mg PO SUMOTUTHSA 04/29/15 12/08/20 History atenoloL 25 mg PO DAILY 04/29/15 12/08/20 History lisinopriL [Zestril] 20 mg PO DAILY 04/29/15 12/08/20 History Calcium Carbonate [Calcium] 300 mg PO DAILY 04/30/16 12/08/20 History Diltiazem Cd [Cardizem CD] 120 mg PO DAILY 06/10/20 12/08/20 History Latanoprost/Pf [Latanoprost 0.005% 1 drop BOTH EYES HS 06/10/20 12/08/20 History Eye Drop] Montelukast [Singulair] 10 mg PO HS 06/10/20 12/08/20 History Warfarin [Coumadin] 5 mg PO WEFR 06/10/20 12/08/20 History Aspirin 81 mg PO DAILY chew 10/30/20 12/08/20 Rx Isosorbide Mononitrate ER [Imdur] 30 mg PO DAILY #30 tab.er.24h 10/30/20 12/08/20 Rx Nitroglycerin Sl Tabs [Nitrostat] 0.4 mg SUBLINGUAL Q5M PRN #25 tab 10/30/20 12/08/20 Rx Aspirin EC [Ecotrin] 325 mg PO DAILY 12/16/20 12/16/20 History Allergies Allergy/AdvReac Type Severity Reaction Status Date / Time No Known Allergies Allergy Verified 12/16/20 06:05 Physical Exam Vitals: Vital Signs Temp Pulse Resp BP Pulse Ox 12/17/20 11:37 80 12/17/20 11:00 88 16 95 12/17/20 10:45 98 16 93 L 12/17/20 10:30 98 16 94 L 12/17/20 10:15 100 17 92 L 12/17/20 10:00 106 H 19 96 12/17/20 09:45 101 H 18 95 12/17/20 09:30 120 H 15 96 12/17/20 09:15 110 H 15 96 12/17/20 09:00 101 H 14 97 12/17/20 08:45 105 H 14 97 12/17/20 08:30 109 H 15 96 12/17/20 08:15 100 12 97 12/17/20 08:00 37.3 F L 106 H 12 97 12/17/20 07:45 96 12 98 12/17/20 07:39 100 12/17/20 07:30 92 12 100 12/17/20 07:28 101 H 12/17/20 07:15 98 14 100 12/17/20 07:00 105 H 15 100 12/17/20 06:00 103 H 17 99 12/17/20 05:00 112 H 18 95 12/17/20 04:00 99 12 96 12/17/20 03:00 105 H 14 96 12/17/20 02:38 98.2 F 101 H 15 108/55 95 12/17/20 02:05 98.2 F 108 H 13 99/62 97 12/17/20 02:00 120 H 12 99 12/17/20 01:55 98.2 F 107 H 14 91/55 99 12/17/20 01:33 98.2 F 108 H 13 99/55 100 12/17/20 01:23 36.6 F L 96 14 100/59 99 12/17/20 01:13 98.4 F 107 H 13 95/59 99 12/17/20 01:00 135 H 16 100 12/17/20 00:55 98.6 F 112 H 14 104/67 99 12/17/20 00:39 98.8 F 110 H 14 101/65 99 12/17/20 00:09 98.6 F 121 H 15 98/63 12/17/20 00:00 141 H 15 100 12/16/20 23:59 98.6 F 122 H 15 92/55 12/16/20 23:00 141 H 15 100 12/16/20 22:00 109 H 14 100 12/16/20 21:00 107 H 14 100 12/16/20 20:37 102 H 17 12/16/20 20:00 95 14 99 12/16/20 19:00 83 15 96 12/16/20 18:45 91 20 100 12/16/20 18:30 97.9 F 84 14 96 12/16/20 18:15 105 H 18 100 12/16/20 18:00 97.7 F 83 16 100 12/16/20 17:45 85 18 100 12/16/20 17:30 85 18 100 12/16/20 17:15 80 18 12/16/20 17:10 91 16 100 12/16/20 17:00 97.3 F L 79 16 12/16/20 16:50 82 17 12/16/20 16:40 70 818 H Intake and Output 12/16/20 12/17/20 12/17/20 22:59 06:59 14:59 Intake Total 2767.377 5251.098 514.878 Output Total 2310 1398 420 Balance -957.004 372.098 94.878 Intake: IV 334 472 245 .9NS Cardiac Output 130 250 50 0.9NS Pressure Bags 54 72 45 ACETAMINOPHEN IV (For NPO 100 100 ) 1,000 mg In Empty Bag 1 bag @ 400 mls/hr IVPB Q6HR [facility] Rx#:[id number] Sodium Chloride 0.9% 1, 150 000 ml @ 20 mls/hr IV . Q24H [facility] Rx#:[id number] ceFAZolin 2 gm In Sodium 50 50 Chloride 0.9% 50 ml @ 100 mls/hr IVPB Q8H [facility] Rx#: [id number] Intake, IV Titration 1018.996 365.098 269.878 Amount Albumin Human 5% 500 ml @ 750 Per Protocol IVPB ONCE ONE Rx#:[id number] Clevidipine Butyrate 25 34.767 mg In Empty Bag 1 bag @ 1 MG/HR 2 mls/hr IV .Q24H [facility] Rx#:[id number] Insulin Regular 100 unit 8.753 16.791 18.517 In Sodium Chloride 0.9% 100 ml @ Per Protocol IV .Q0M [facility] Rx#:[id number] Nitroglycerin-D5w Pmx 50 9.125 4.375 mg In Dextrose/Water 1 250ml.bag @ 5 MCG/MIN 1.5 mls/hr IV .Q24H [facility] Rx#: [id number] Norepinephrine 4 mg In 7.964 179.172 40.207 Sodium Chloride 0.9% 250 ml @ 0.05 MCG/KG/MIN 16. 478 mls/hr IV .[id number] [facility] Rx#:[id number] Phenylephrine 40 mg In 72.285 171.812 Sodium Chloride 0.9% 250 ml @ 0.5 MCG/KG/MIN 16. 478 mls/hr IV .[id number] [facility] Rx#:[id number] Sodium Chloride 0.9% 1, 150 000 ml @ Per Protocol IV ONCE ONE Rx#:[id number] propofoL 1,000 mg In 58.387 92.475 39.342 Empty Bag 1 bag @ Titrate IV .Q0M [facility] Rx#: [id number] Blood Product 933 Ffp 24 Cpd Unit 319 [id number] Ffp 24 Cpd Unit 304 [id number] Rc As-1 Unit 310 [id number] Output: Chest Tube Drainage 1050 1090 240 Left Pleural Chest Tube 280 600 120 Mediastinal Chest Tube X 770 490 120 2 Drainage 40 Left Forearm 40 Urine 1220 308 180 Other: Voiding Method Indwelling Catheter Indwelling Catheter Weight 97.4 kg ABP, PAP, CO, CI - Last 8 Hours Arterial Blood Pressure 110/55 Arterial Blood Pressure 104/55 Arterial Blood Pressure 120/59 Arterial Blood Pressure 111/56 Arterial Blood Pressure 118/56 Arterial Blood Pressure 140/72 Arterial Blood Pressure 133/63 Arterial Blood Pressure 112/60 Arterial Blood Pressure 120/62 Arterial Blood Pressure 117/63 Arterial Blood Pressure 112/58 Arterial Blood Pressure 107/57 Arterial Blood Pressure 118/63 Arterial Blood Pressure 108/58 Arterial Blood Pressure 122/61 Arterial Blood Pressure 121/62 Arterial Blood Pressure 113/58 Arterial Blood Pressure 110/56 Arterial Blood Pressure 93/56 Pulmonary Artery Pressure 31/19 Pulmonary Artery Pressure 33/18 Pulmonary Artery Pressure 30/21 Pulmonary Artery Pressure 35/18 Pulmonary Artery Pressure 37/22 Pulmonary Artery Pressure 39/23 Pulmonary Artery Pressure 37/21 Pulmonary Artery Pressure 33/22 Pulmonary Artery Pressure 33/20 Pulmonary Artery Pressure 31/19 Pulmonary Artery Pressure 31/17 Pulmonary Artery Pressure 31/18 Pulmonary Artery Pressure 35/22 Pulmonary Artery Pressure 36/21 Pulmonary Artery Pressure 35/21 Pulmonary Artery Pressure 38/23 Pulmonary Artery Pressure 34/23 Pulmonary Artery Pressure 38/23 Pulmonary Artery Pressure 42/25 Pulmonary Artery Pressure 36/24 Cardiac Output 3.5 Cardiac Output 3.2 Cardiac Output 3.2 Cardiac Output 3.2 Cardiac Output 3.2 Cardiac Output 3.5 Cardiac Output 3.2 Cardiac Output 3.5 Cardiac Output 3.4 Cardiac Index 1.8 Cardiac Index 1.6 Cardiac Index 1.6 Cardiac Index 1.6 Cardiac Index 1.6 Cardiac Index 1.8 Cardiac Index 1.6 Cardiac Index 1.8 Cardiac Index 1.7 Results CBC & Chem 7: 12/17/20 03:50 12/17/20 03:50 Labs: Abnormal Lab Results - Last 24 Hours (Table) 12/08/20 12/16/20 12/16/20 Range/Units 08:59 08:33 10:35 WBC (3.8-10.6) k/uL RBC (4.30-5.90) m/uL Hgb (13.0-17.5) gm/dL Hct (39.0-53.0) % Plt Count (150-450) k/uL Neutrophils # (1.3-7.7) k/uL Lymphocytes # (1.0-4.8) k/uL PT (9.0-12.0) sec INR (<1.2) APTT (22.0-30.0) sec ABG pH (7.35-7.45) ABG pCO2 (35-45) mmHg ABG pO2 197 H 188 H (83-108) mmHg ABG HCO3 (21-25) mmol/L ABG Total CO2 25 H (19-24) mmol/L ABG O2 Saturation 99.9 H 99.9 H (94-97) % ABG Hematocrit (34.0-46.0) % ABG Potassium (3.4-4.5) mmol/L ABG Ionized Calcium (4.5-5.3) mg/dL ABG Glucose 159 H 188 H (75-99) mg/dL ABG Lactic Acid (0.5-1.6) mmol/L Hemoglobin (13.0-17.5) gm/dL Chloride (98-107) mmol/L Creatinine (0.66-1.25) mg/dL Glucose (74-99) mg/dL POC Glucose (mg/dL) (75-99) mg/dL Calcium (8.4-10.2) mg/dL Alkaline Phosphatase (38-126) U/L Total Protein (6.3-8.2) g/dL Albumin (3.5-5.0) g/dL Arterial Blood Potassium (3.4-4.5) mmol/L Arterial Blood Glucose 159 H 188 H (75-99) mg/dL Crossmatch See Detail 12/16/20 12/16/20 12/16/20 Range/Units 11:27 12:04 12:40 WBC (3.8-10.6) k/uL RBC (4.30-5.90) m/uL Hgb (13.0-17.5) gm/dL Hct (39.0-53.0) % Plt Count (150-450) k/uL Neutrophils # (1.3-7.7) k/uL Lymphocytes # (1.0-4.8) k/uL PT (9.0-12.0) sec INR (<1.2) APTT (22.0-30.0) sec ABG pH (7.35-7.45) ABG pCO2 (35-45) mmHg ABG pO2 >420 H 251 H 196 H (83-108) mmHg ABG HCO3 (21-25) mmol/L ABG Total CO2 26 H 26 H (19-24) mmol/L ABG O2 Saturation 100.0 H 100.0 H 100.0 H (94-97) % ABG Hematocrit 32 L 31 L 30 L (34.0-46.0) % ABG Potassium 5.2 H 5.2 H (3.4-4.5) mmol/L ABG Ionized Calcium 4.1 L 4.2 L 4.1 L (4.5-5.3) mg/dL ABG Glucose 138 H 143 H 162 H (75-99) mg/dL ABG Lactic Acid (0.5-1.6) mmol/L Hemoglobin 10.5 L 10.0 L 9.7 L (13.0-17.5) gm/dL Chloride (98-107) mmol/L Creatinine (0.66-1.25) mg/dL Glucose (74-99) mg/dL POC Glucose (mg/dL) (75-99) mg/dL Calcium (8.4-10.2) mg/dL Alkaline Phosphatase (38-126) U/L Total Protein (6.3-8.2) g/dL Albumin (3.5-5.0) g/dL Arterial Blood Potassium 5.2 H 5.2 H (3.4-4.5) mmol/L Arterial Blood Glucose 138 H 143 H 162 H (75-99) mg/dL Crossmatch 12/16/20 12/16/20 12/16/20 Range/Units 13:16 13:53 14:34 WBC (3.8-10.6) k/uL RBC (4.30-5.90) m/uL Hgb (13.0-17.5) gm/dL Hct (39.0-53.0) % Plt Count (150-450) k/uL Neutrophils # (1.3-7.7) k/uL Lymphocytes # (1.0-4.8) k/uL PT (9.0-12.0) sec INR (<1.2) APTT (22.0-30.0) sec ABG pH 7.34 L (7.35-7.45) ABG pCO2 (35-45) mmHg ABG pO2 332 H 258 H 325 H (83-108) mmHg ABG HCO3 (21-25) mmol/L ABG Total CO2 26 H 26 H 26 H (19-24) mmol/L ABG O2 Saturation 100.0 H 100.0 H 100.0 H (94-97) % ABG Hematocrit 29 L 28 L 25 L (34.0-46.0) % ABG Potassium 5.4 H 4.6 H (3.4-4.5) mmol/L ABG Ionized Calcium 4.0 L 4.1 L 3.9 L (4.5-5.3) mg/dL ABG Glucose 175 H 173 H 173 H (75-99) mg/dL ABG Lactic Acid 1.8 H (0.5-1.6) mmol/L Hemoglobin 9.5 L 9.1 L 8.1 L (13.0-17.5) gm/dL Chloride (98-107) mmol/L Creatinine (0.66-1.25) mg/dL Glucose (74-99) mg/dL POC Glucose (mg/dL) (75-99) mg/dL Calcium (8.4-10.2) mg/dL Alkaline Phosphatase (38-126) U/L Total Protein (6.3-8.2) g/dL Albumin (3.5-5.0) g/dL Arterial Blood Potassium 5.4 H 4.6 H (3.4-4.5) mmol/L Arterial Blood Glucose 175 H 173 H 173 H (75-99) mg/dL Crossmatch 12/16/20 12/16/20 12/16/20 Range/Units 15:16 15:43 16:35 WBC 13.5 H (3.8-10.6) k/uL RBC 3.19 L (4.30-5.90) m/uL Hgb 9.9 L D (13.0-17.5) gm/dL Hct 27.9 L (39.0-53.0) % Plt Count 94 L (150-450) k/uL Neutrophils # 11.0 H (1.3-7.7) k/uL Lymphocytes # (1.0-4.8) k/uL PT (9.0-12.0) sec INR (<1.2) APTT (22.0-30.0) sec ABG pH (7.35-7.45) ABG pCO2 33 L (35-45) mmHg ABG pO2 376 H 379 H (83-108) mmHg ABG HCO3 (21-25) mmol/L ABG Total CO2 (19-24) mmol/L ABG O2 Saturation 100.0 H 100.0 H (94-97) % ABG Hematocrit 29 L 31 L (34.0-46.0) % ABG Potassium (3.4-4.5) mmol/L ABG Ionized Calcium 3.8 L (4.5-5.3) mg/dL ABG Glucose 169 H 141 H (75-99) mg/dL ABG Lactic Acid 1.7 H 1.9 H (0.5-1.6) mmol/L Hemoglobin 9.5 L 10.1 L (13.0-17.5) gm/dL Chloride (98-107) mmol/L Creatinine (0.66-1.25) mg/dL Glucose (74-99) mg/dL POC Glucose (mg/dL) (75-99) mg/dL Calcium (8.4-10.2) mg/dL Alkaline Phosphatase (38-126) U/L Total Protein (6.3-8.2) g/dL Albumin (3.5-5.0) g/dL Arterial Blood Potassium (3.4-4.5) mmol/L Arterial Blood Glucose 169 H 141 H (75-99) mg/dL Crossmatch 12/16/20 12/16/20 12/16/20 Range/Units 16:35 16:35 16:37 WBC (3.8-10.6) k/uL RBC (4.30-5.90) m/uL Hgb (13.0-17.5) gm/dL Hct (39.0-53.0) % Plt Count (150-450) k/uL Neutrophils # (1.3-7.7) k/uL Lymphocytes # (1.0-4.8) k/uL PT 16.1 H (9.0-12.0) sec INR 1.6 H (<1.2) APTT 35.9 H (22.0-30.0) sec ABG pH (7.35-7.45) ABG pCO2 (35-45) mmHg ABG pO2 (83-108) mmHg ABG HCO3 (21-25) mmol/L ABG Total CO2 (19-24) mmol/L ABG O2 Saturation (94-97) % ABG Hematocrit (34.0-46.0) % ABG Potassium (3.4-4.5) mmol/L ABG Ionized Calcium (4.5-5.3) mg/dL ABG Glucose (75-99) mg/dL ABG Lactic Acid (0.5-1.6) mmol/L Hemoglobin (13.0-17.5) gm/dL Chloride 110 H (98-107) mmol/L Creatinine 0.65 L (0.66-1.25) mg/dL Glucose 129 H (74-99) mg/dL POC Glucose (mg/dL) 133 H (75-99) mg/dL Calcium 8.2 L (8.4-10.2) mg/dL Alkaline Phosphatase 22 L (38-126) U/L Total Protein 4.2 L (6.3-8.2) g/dL Albumin 2.7 L (3.5-5.0) g/dL Arterial Blood Potassium (3.4-4.5) mmol/L Arterial Blood Glucose (75-99) mg/dL Crossmatch 12/16/20 12/16/20 12/16/20 Range/Units 18:13 18:31 19:40 WBC (3.8-10.6) k/uL RBC 2.99 L (4.30-5.90) m/uL Hgb 9.3 L (13.0-17.5) gm/dL Hct 26.6 L (39.0-53.0) % Plt Count 69 L (150-450) k/uL Neutrophils # (1.3-7.7) k/uL Lymphocytes # 0.9 L (1.0-4.8) k/uL PT (9.0-12.0) sec INR (<1.2) APTT (22.0-30.0) sec ABG pH (7.35-7.45) ABG pCO2 28 L (35-45) mmHg ABG pO2 (83-108) mmHg ABG HCO3 17 L (21-25) mmol/L ABG Total CO2 18 L (19-24) mmol/L ABG O2 Saturation 97.6 H (94-97) % ABG Hematocrit (34.0-46.0) % ABG Potassium (3.4-4.5) mmol/L ABG Ionized Calcium (4.5-5.3) mg/dL ABG Glucose (75-99) mg/dL ABG Lactic Acid (0.5-1.6) mmol/L Hemoglobin (13.0-17.5) gm/dL Chloride (98-107) mmol/L Creatinine (0.66-1.25) mg/dL Glucose (74-99) mg/dL POC Glucose (mg/dL) 162 H (75-99) mg/dL Calcium (8.4-10.2) mg/dL Alkaline Phosphatase (38-126) U/L Total Protein (6.3-8.2) g/dL Albumin (3.5-5.0) g/dL Arterial Blood Potassium (3.4-4.5) mmol/L Arterial Blood Glucose (75-99) mg/dL Crossmatch 12/16/20 12/16/20 12/16/20 Range/Units 19:42 20:25 21:20 WBC (3.8-10.6) k/uL RBC (4.30-5.90) m/uL Hgb (13.0-17.5) gm/dL Hct (39.0-53.0) % Plt Count (150-450) k/uL Neutrophils # (1.3-7.7) k/uL Lymphocytes # (1.0-4.8) k/uL PT (9.0-12.0) sec INR (<1.2) APTT (22.0-30.0) sec ABG pH (7.35-7.45) ABG pCO2 (35-45) mmHg ABG pO2 172 H (83-108) mmHg ABG HCO3 (21-25) mmol/L ABG Total CO2 (19-24) mmol/L ABG O2 Saturation 99.6 H (94-97) % ABG Hematocrit (34.0-46.0) % ABG Potassium (3.4-4.5) mmol/L ABG Ionized Calcium (4.5-5.3) mg/dL ABG Glucose (75-99) mg/dL ABG Lactic Acid (0.5-1.6) mmol/L Hemoglobin (13.0-17.5) gm/dL Chloride (98-107) mmol/L Creatinine (0.66-1.25) mg/dL Glucose (74-99) mg/dL POC Glucose (mg/dL) 166 H 169 H (75-99) mg/dL Calcium (8.4-10.2) mg/dL Alkaline Phosphatase (38-126) U/L Total Protein (6.3-8.2) g/dL Albumin (3.5-5.0) g/dL Arterial Blood Potassium (3.4-4.5) mmol/L Arterial Blood Glucose (75-99) mg/dL Crossmatch 12/16/20 12/16/20 12/16/20 Range/Units 22:00 22:07 22:25 WBC (3.8-10.6) k/uL RBC 2.75 L (4.30-5.90) m/uL Hgb 8.4 L (13.0-17.5) gm/dL Hct 24.1 L (39.0-53.0) % Plt Count 92 L (150-450) k/uL Neutrophils # (1.3-7.7) k/uL Lymphocytes # 0.9 L (1.0-4.8) k/uL PT (9.0-12.0) sec INR (<1.2) APTT (22.0-30.0) sec ABG pH (7.35-7.45) ABG pCO2 31 L (35-45) mmHg ABG pO2 143 H (83-108) mmHg ABG HCO3 (21-25) mmol/L ABG Total CO2 (19-24) mmol/L ABG O2 Saturation 99.5 H (94-97) % ABG Hematocrit (34.0-46.0) % ABG Potassium (3.4-4.5) mmol/L ABG Ionized Calcium (4.5-5.3) mg/dL ABG Glucose (75-99) mg/dL ABG Lactic Acid (0.5-1.6) mmol/L Hemoglobin (13.0-17.5) gm/dL Chloride (98-107) mmol/L Creatinine (0.66-1.25) mg/dL Glucose (74-99) mg/dL POC Glucose (mg/dL) 173 H (75-99) mg/dL Calcium (8.4-10.2) mg/dL Alkaline Phosphatase (38-126) U/L Total Protein (6.3-8.2) g/dL Albumin (3.5-5.0) g/dL Arterial Blood Potassium (3.4-4.5) mmol/L Arterial Blood Glucose (75-99) mg/dL Crossmatch 12/16/20 12/16/20 12/17/20 Range/Units 23:00 23:12 00:19 WBC (3.8-10.6) k/uL RBC (4.30-5.90) m/uL Hgb (13.0-17.5) gm/dL Hct (39.0-53.0) % Plt Count (150-450) k/uL Neutrophils # (1.3-7.7) k/uL Lymphocytes # (1.0-4.8) k/uL PT (9.0-12.0) sec INR (<1.2) APTT (22.0-30.0) sec ABG pH (7.35-7.45) ABG pCO2 (35-45) mmHg ABG pO2 (83-108) mmHg ABG HCO3 (21-25) mmol/L ABG Total CO2 (19-24) mmol/L ABG O2 Saturation (94-97) % ABG Hematocrit (34.0-46.0) % ABG Potassium (3.4-4.5) mmol/L ABG Ionized Calcium (4.5-5.3) mg/dL ABG Glucose (75-99) mg/dL ABG Lactic Acid (0.5-1.6) mmol/L Hemoglobin (13.0-17.5) gm/dL Chloride (98-107) mmol/L Creatinine (0.66-1.25) mg/dL Glucose (74-99) mg/dL POC Glucose (mg/dL) 157 H 151 H (75-99) mg/dL Calcium (8.4-10.2) mg/dL Alkaline Phosphatase (38-126) U/L Total Protein (6.3-8.2) g/dL Albumin (3.5-5.0) g/dL Arterial Blood Potassium (3.4-4.5) mmol/L Arterial Blood Glucose (75-99) mg/dL Crossmatch See Detail 12/17/20 12/17/20 12/17/20 Range/Units 01:25 02:06 03:12 WBC (3.8-10.6) k/uL RBC (4.30-5.90) m/uL Hgb (13.0-17.5) gm/dL Hct (39.0-53.0) % Plt Count (150-450) k/uL Neutrophils # (1.3-7.7) k/uL Lymphocytes # (1.0-4.8) k/uL PT (9.0-12.0) sec INR (<1.2) APTT (22.0-30.0) sec ABG pH (7.35-7.45) ABG pCO2 (35-45) mmHg ABG pO2 (83-108) mmHg ABG HCO3 (21-25) mmol/L ABG Total CO2 (19-24) mmol/L ABG O2 Saturation (94-97) % ABG Hematocrit (34.0-46.0) % ABG Potassium (3.4-4.5) mmol/L ABG Ionized Calcium (4.5-5.3) mg/dL ABG Glucose (75-99) mg/dL ABG Lactic Acid (0.5-1.6) mmol/L Hemoglobin (13.0-17.5) gm/dL Chloride (98-107) mmol/L Creatinine (0.66-1.25) mg/dL Glucose (74-99) mg/dL POC Glucose (mg/dL) 153 H 151 H 149 H (75-99) mg/dL Calcium (8.4-10.2) mg/dL Alkaline Phosphatase (38-126) U/L Total Protein (6.3-8.2) g/dL Albumin (3.5-5.0) g/dL Arterial Blood Potassium (3.4-4.5) mmol/L Arterial Blood Glucose (75-99) mg/dL Crossmatch 12/17/20 12/17/20 12/17/20 Range/Units 03:50 03:50 03:50 WBC (3.8-10.6) k/uL RBC 2.71 L (4.30-5.90) m/uL Hgb 8.6 L (13.0-17.5) gm/dL Hct 24.1 L (39.0-53.0) % Plt Count 97 L (150-450) k/uL Neutrophils # (1.3-7.7) k/uL Lymphocytes # (1.0-4.8) k/uL PT 12.3 H (9.0-12.0) sec INR 1.2 H (<1.2) APTT 31.9 H (22.0-30.0) sec ABG pH (7.35-7.45) ABG pCO2 (35-45) mmHg ABG pO2 (83-108) mmHg ABG HCO3 (21-25) mmol/L ABG Total CO2 (19-24) mmol/L ABG O2 Saturation (94-97) % ABG Hematocrit (34.0-46.0) % ABG Potassium (3.4-4.5) mmol/L ABG Ionized Calcium (4.5-5.3) mg/dL ABG Glucose (75-99) mg/dL ABG Lactic Acid (0.5-1.6) mmol/L Hemoglobin (13.0-17.5) gm/dL Chloride 108 H (98-107) mmol/L Creatinine (0.66-1.25) mg/dL Glucose 132 H (74-99) mg/dL POC Glucose (mg/dL) (75-99) mg/dL Calcium 7.8 L (8.4-10.2) mg/dL Alkaline Phosphatase 31 L (38-126) U/L Total Protein 4.7 L (6.3-8.2) g/dL Albumin 3.0 L (3.5-5.0) g/dL Arterial Blood Potassium (3.4-4.5) mmol/L Arterial Blood Glucose (75-99) mg/dL Crossmatch 12/17/20 12/17/20 12/17/20 Range/Units 03:54 05:10 05:13 WBC (3.8-10.6) k/uL RBC (4.30-5.90) m/uL Hgb (13.0-17.5) gm/dL Hct (39.0-53.0) % Plt Count (150-450) k/uL Neutrophils # (1.3-7.7) k/uL Lymphocytes # (1.0-4.8) k/uL PT (9.0-12.0) sec INR (<1.2) APTT (22.0-30.0) sec ABG pH (7.35-7.45) ABG pCO2 (35-45) mmHg ABG pO2 76 L (83-108) mmHg ABG HCO3 26 H (21-25) mmol/L ABG Total CO2 27 H (19-24) mmol/L ABG O2 Saturation (94-97) % ABG Hematocrit (34.0-46.0) % ABG Potassium (3.4-4.5) mmol/L ABG Ionized Calcium (4.5-5.3) mg/dL ABG Glucose (75-99) mg/dL ABG Lactic Acid (0.5-1.6) mmol/L Hemoglobin (13.0-17.5) gm/dL Chloride (98-107) mmol/L Creatinine (0.66-1.25) mg/dL Glucose (74-99) mg/dL POC Glucose (mg/dL) 150 H 136 H (75-99) mg/dL Calcium (8.4-10.2) mg/dL Alkaline Phosphatase (38-126) U/L Total Protein (6.3-8.2) g/dL Albumin (3.5-5.0) g/dL Arterial Blood Potassium (3.4-4.5) mmol/L Arterial Blood Glucose (75-99) mg/dL Crossmatch 12/17/20 12/17/20 12/17/20 Range/Units 06:17 07:12 08:28 WBC (3.8-10.6) k/uL RBC (4.30-5.90) m/uL Hgb (13.0-17.5) gm/dL Hct (39.0-53.0) % Plt Count (150-450) k/uL Neutrophils # (1.3-7.7) k/uL Lymphocytes # (1.0-4.8) k/uL PT (9.0-12.0) sec INR (<1.2) APTT (22.0-30.0) sec ABG pH (7.35-7.45) ABG pCO2 (35-45) mmHg ABG pO2 (83-108) mmHg ABG HCO3 (21-25) mmol/L ABG Total CO2 (19-24) mmol/L ABG O2 Saturation (94-97) % ABG Hematocrit (34.0-46.0) % ABG Potassium (3.4-4.5) mmol/L ABG Ionized Calcium (4.5-5.3) mg/dL ABG Glucose (75-99) mg/dL ABG Lactic Acid (0.5-1.6) mmol/L Hemoglobin (13.0-17.5) gm/dL Chloride (98-107) mmol/L Creatinine (0.66-1.25) mg/dL Glucose (74-99) mg/dL POC Glucose (mg/dL) 124 H 121 H 112 H (75-99) mg/dL Calcium (8.4-10.2) mg/dL Alkaline Phosphatase (38-126) U/L Total Protein (6.3-8.2) g/dL Albumin (3.5-5.0) g/dL Arterial Blood Potassium (3.4-4.5) mmol/L Arterial Blood Glucose (75-99) mg/dL Crossmatch 12/17/20 12/17/20 12/17/20 Range/Units 09:34 10:07 11:11 WBC (3.8-10.6) k/uL RBC (4.30-5.90) m/uL Hgb (13.0-17.5) gm/dL Hct (39.0-53.0) % Plt Count (150-450) k/uL Neutrophils # (1.3-7.7) k/uL Lymphocytes # (1.0-4.8) k/uL PT (9.0-12.0) sec INR (<1.2) APTT (22.0-30.0) sec ABG pH (7.35-7.45) ABG pCO2 (35-45) mmHg ABG pO2 (83-108) mmHg ABG HCO3 (21-25) mmol/L ABG Total CO2 (19-24) mmol/L ABG O2 Saturation (94-97) % ABG Hematocrit (34.0-46.0) % ABG Potassium (3.4-4.5) mmol/L ABG Ionized Calcium (4.5-5.3) mg/dL ABG Glucose (75-99) mg/dL ABG Lactic Acid (0.5-1.6) mmol/L Hemoglobin (13.0-17.5) gm/dL Chloride (98-107) mmol/L Creatinine (0.66-1.25) mg/dL Glucose (74-99) mg/dL POC Glucose (mg/dL) 135 H 135 H 127 H (75-99) mg/dL Calcium (8.4-10.2) mg/dL Alkaline Phosphatase (38-126) U/L Total Protein (6.3-8.2) g/dL Albumin (3.5-5.0) g/dL Arterial Blood Potassium (3.4-4.5) mmol/L Arterial Blood Glucose (75-99) mg/dL Crossmatch
[2020-12-17] MEDS: SODIUM CHLORIDE 0.9% 1,000 ML IV SCH ×2 (14:00→21:55)
[2020-12-17 14:11] VITALS: BMI 34.6
[2020-12-17 14:18] LABS: Glucose,Whole Blood 114 mg/dL (75-99)
[2020-12-17] MEDS: HYDROcodone/APAP 5-325MG 1 EACH TAB PO PRN ×2 (14:30→21:52)
[2020-12-17] MEDS ORDERED: METOPROLOL TARTRATE 12.5 MG TAB PO STA (16:13)
[2020-12-17 16:22] LABS: Glucose,Whole Blood 147 mg/dL (75-99)
[2020-12-17] MEDS ORDERED: DEXTROSE 5% IN WATER 100 ML with AMIODARONE 150 MG IV ONE (16:39)
[2020-12-17] MEDS ORDERED: DIGOXIN 250 MCG/ML 2 ML AMP IVP STA (16:41)
[2020-12-17 17:13] LABS: Glucose,Whole Blood 148 mg/dL (75-99)
[2020-12-17 18:23] LABS: Glucose,Whole Blood 144 mg/dL (75-99)
[2020-12-17 19:08] LABS: Glucose,Whole Blood 138 mg/dL (75-99)
[2020-12-17 21:15] LABS: Glucose,Whole Blood 119 mg/dL (75-99)
[2020-12-17] MEDS: METOPROLOL TARTRATE 12.5 MG TAB PO SCH (21:52)
[2020-12-17] MEDS: MONTELUKAST 10 MG TAB PO SCH (21:52)
[2020-12-17] MEDS: LATANOPROST 0.005% OPHTH DROPS 2.5 ML BTL BOTH EYES SCH (21:52)
[2020-12-17] MEDS: SENNOSIDES-DOCUSATE SODIUM 1 EACH TAB PO SCH (21:52)
[2020-12-17] MEDS: MILRINONE-D5W PMX 20 MG in DEXTROSE/WATER 1 100ML.BAG IV SCH (21:55)
[2020-12-17 23:12] LABS: Glucose,Whole Blood 136 mg/dL (75-99)
[2020-12-18 00:33] LABS: Glucose,Whole Blood 142 mg/dL (75-99)
[2020-12-18] MEDS: INSULIN REGULAR 100 UNIT in SODIUM CHLORIDE 0.9% 100 ML IV SCH (00:41)
[2020-12-18] MEDS: HYDROcodone/APAP 5-325MG 1 EACH TAB PO PRN ×3 (02:23→23:30)
[2020-12-18] MEDS: MILRINONE-D5W PMX 20 MG in DEXTROSE/WATER 1 100ML.BAG IV SCH (02:29)
[2020-12-18 02:34] LABS: Glucose,Whole Blood 120 mg/dL (75-99)
[2020-12-18] MEDS: HEPARIN SODIUM,PORCINE/PF 5,000 UNIT/0.5 ML SYRINGE SQ SCH ×3 (04:24→18:11)
[2020-12-18 04:29] LABS: Glucose,Whole Blood 128 mg/dL (75-99)
[2020-12-18 04:39] LABS: Basophils % (A) 0 %; Eosinophils % (A) 0 %; HCT 24.6 % (39.0-53.0); HGB 8.5 gm/dL (13.0-17.5); Lymphocytes # (A) 1.5 k/uL (1.0-4.8); Lymphocytes % (A) 12 %; MCHC 34.5 g/dL (31.0-37.0); MCV 89.7 fL (80.0-100.0); Mean Platelet Volume 9.4; Monocytes % (A) 8 %; Neutrophils # (A) 9.7 k/uL (1.3-7.7); Neutrophils % (A) 78 %; Platelet Count 85 k/uL (150-450); RBC 2.74 m/uL (4.30-5.90); RDW 13.3 % (11.5-15.5); WBC 12.5 k/uL (3.8-10.6)
[2020-12-18 05:10] LABS: Ionized Calcium 4.8 mg/dL (4.5-5.3)
[2020-12-18 05:28] LABS: ALT 61 U/L (4-49); AST 86 U/L (17-59); African American GFR (CKD) >90 (>60 ml/min/1.73 sqM); Albumin 2.7 g/dL (3.5-5.0); Alkaline Phosphatase 41 U/L (38-126); Anion Gap 6 mmol/L; Blood Urea Nitrogen 17 mg/dL (9-20); Calcium 8.1 mg/dL (8.4-10.2); Carbon Dioxide 24 mmol/L (22-30); Chloride 110 mmol/L (98-107); Glucose 121 mg/dL (74-99); Magnesium 2.1 mg/dL (1.6-2.3); Non-African American GFR(CKD) 83 (>60 ml/min/1.73 sqM); Potassium 4.2 mmol/L (3.5-5.1); Sodium 140 mmol/L (137-145); Total Protein 4.6 g/dL (6.3-8.2)
[2020-12-18] MEDS ORDERED: ACETAMINOPHEN TAB 325 MG TAB PO PRN (07:12)
[2020-12-18 07:20] LABS: Glucose,Whole Blood 144 mg/dL (75-99)
--- NOTE | 2020-12-18 07:32 | XR ---
EXAMINATION TYPE: XR chest 1V portable DATE OF EXAM: 12/18/2020 CLINICAL HISTORY: Post Open cardiac surgery progress study. TECHNIQUE: Single AP portable semiupright view of the chest is obtained. COMPARISON: Chest x-ray from one day earlier FINDINGS: Interval extubation with removal of endotracheal and orogastric tubes. Stable right internal jugular [place]-Sara catheter. Stable left-sided chest tube and mediastinal draina ge catheter. Overlying sternal wires and mediastinal clips along with left atrial appendage clip are all redemonstrated. Stable mild cardiomegaly. Persistent left greater than right bibasilar opacities. No pneumothorax see n bilaterally. Degenerative change bilateral glenohumeral joints. IMPRESSION: Interval extubation. Cardiomegaly and chronic parenchymal changes with small left greater than right bibasilar acute infiltrate and/or atelectasis are redemonstrated. Left-sided chest tube w ithout pneumothorax redemonstrated. No significant change from one day earlier.
[2020-12-18] MEDS: PHENYLEPHRINE 40 MG in SODIUM CHLORIDE 0.9% 250 ML IV SCH (07:35)
[2020-12-18 07:38] LABS: INR 1.2 (<1.2); Prothrombin Time 12.2 sec (9.0-12.0)
[2020-12-18] MEDS: CHOLECALCIFEROL 25 MCG (1000 IU) TABLET PO SCH (08:22)
[2020-12-18] MEDS: ASCORBIC ACID 500 MG TAB PO SCH (08:22)
[2020-12-18] MEDS: PANTOPRAZOLE 40 MG/10 ML VIAL IVP SCH ×2 (08:23→20:34)
[2020-12-18] MEDS: CLOPIDOGREL 75 MG TAB PO SCH (08:23)
[2020-12-18] MEDS: ATORVASTATIN 40 MG TAB PO SCH (08:23)
[2020-12-18] MEDS: METOPROLOL TARTRATE 12.5 MG TAB PO SCH (08:23)
[2020-12-18] MEDS: ASPIRIN 81 MG PO SCH (08:23)
[2020-12-18 08:44] LABS: Glucose,Whole Blood 148 mg/dL (75-99)
[2020-12-18] MEDS ORDERED: lisinopriL 5 MG TAB PO SCH (09:00)
[2020-12-18] MEDS: IPRATROPIUM-ALBUTEROL 3 ML NEB INHALATION SCH ×4 (09:02→19:58)
--- NOTE | 2020-12-18 09:11 | P.PN ---
Subjective Progress Note Date: 12/18/20 Principal diagnosis: Triple-vessel coronary artery disease. Previous medical history of coronary artery disease with PCI to the LAD in 2006, chronic atrial fibrillation on Coumadin for anticoagulation, preserved left ventricular function, hypertension, hyperlipidemia, diet controlled diabetes mellitus, obstructive sleep apnea on home CPAP, previous pituitary tumor, never smoker, daily wine consumption, and family history of premature coronary artery disease with father diagnosed before the age of 55. POD #2 quadruple coronary artery bypass grafting using the left internal mammary artery to the left anterior descending artery, left radial artery from the aorta to the first obtuse marginal artery, reverse saphenous vein graft from the aorta to the second diagonal artery, reverse saphenous vein graft from the aorta to the posterior descending artery, endoscopic harvesting of the left radial artery, endoscopic harvesting of the left greater saphenous vein from ankle to the groin, exclusion of the left atrial appendage using a 40 mm AtriClip, exploratory aortotomy, intraoperative transesophageal echocardiogram and epi- aortic scanning, intraoperative graft flow measurements using the [employer] system Postoperative acute blood loss anemia and thrombocytopenia, expected given hemodilution and cardiopulmonary bypass pump as well as chronic Coumadin use The patient was seen and examined this morning in the intensive care unit, sitting up in the recliner in no acute distress. He was successfully extubated yesterday at 12:45. Remains in atrial fibrillation, mostly controlled. Has been off levo and marcus since yesterday afternoon. Remains on IV Primacor for ca rdiac output. Did attempt to wean from Primacor this morning with CI decreasing from 2.1 to 1.7. Right internal jugular [place]/Cordis, right radial arterial line, mediastinal/left pleural chest tubes all remain. Does complain of post surgical pain mostly controlled with pain meds. Denies shortness of breath although hasn't been very active yet. Neurologically intact. Did have low grade fever 100F last night with atelectasis on CXR, encouraged to cough and deep breath more. Achieving 750-1000 on incentive spirometer. No other new concerns. Objective - Vital Signs Vital signs: Vital Signs Temp 100.0 F H 12/18/20 04:00 Pulse 96 12/18/20 07:00 Resp 30 H 12/18/20 07:00 BP 117/69 12/17/20 22:00 Pulse Ox 97 12/18/20 07:00 Intake & Output 12/17/20 12/18/20 12/18/20 18:59 06:59 18:59 Intake Total 1275.139 723.377 58.662 Output Total 977 715 90 Balance 298.139 8.377 -31.338 Weight 97.4 kg 93.8 kg Intake: IV 658 678 49 .9NS Cardiac Output 100 90 0.9NS Pressure Bags 108 108 9 Sodium Chloride 0.9% 1, 450 480 40 000 ml @ 20 mls/hr IV . Q24H BRENDA Rx#:[id number] Intake, IV Titration 427.139 45.377 9.662 Amount Insulin Regular 100 unit 32.093 26.866 9.662 In Sodium Chloride 0.9% 100 ml @ Per Protocol IV .Q0M BRENDA Rx#:[id number] Milrinone-D5w Pmx 20 mg 100 18.511 In Dextrose/Water 1 100ml .bag @ 0.2 MCG/KG/MIN 5. 19 mls/hr IV .[id number] BRENDA Rx#:[id number] Norepinephrine 4 mg In 40.207 Sodium Chloride 0.9% 250 ml @ 0.05 MCG/KG/MIN 16. 478 mls/hr IV .[id number] BRENDA Rx#:[id number] Phenylephrine 40 mg In 215.497 Sodium Chloride 0.9% 250 ml @ 0.5 MCG/KG/MIN 16. 478 mls/hr IV .[id number] BRENDA Rx#:[id number] propofoL 1,000 mg In 39.342 Empty Bag 1 bag @ Titrate IV .Q0M BRENDA Rx#: [id number] Oral 100 Other 90 Output: Chest Tube Drainage 570 310 60 Left Pleural Chest Tube 320 160 20 Mediastinal Chest Tube X 250 150 40 2 Urine 407 405 30 Other: Voiding Method Indwelling Catheter Indwelling Catheter ABP, PAP, CO, CI - Last Documented Arterial Blood Pressure 139/57 Pulmonary Artery Pressure 26/11 Cardiac Output 4 Cardiac Index 2 - Exam CONSTITUTIONAL: Sitting up in recliner, appears comfortable, no acute distress RESPIRATORY: Lungs sounds diminished bilaterally. Respirations even, nonlabored. Currently on 5 LPM hi flow NC with oxygen saturation 97%. Able to achieve 750-1000 mL on incentive spirometer. Strong cough CARDIOVASCULAR: S1, S2 present. Irregular rate and rhythm, chronic atrial fibrillation on telemetry. Sternum stable. Palpable peripheral pulses bilaterally. Generalized edema present. Heart hugger in place with patient attempting to use appropriately. Antiembolism stockings, SCDs present. GASTROINTESTINAL: Abdomen soft, nontender, nondistended, round. Hypoactive bowel sounds present 4 quadrants. Tolerating minimal clear liquids. Negative flatus GENITOURINARY: Barrow present draining yellow urine. Output overnight 25-40 mL per hour, 812 mL in the last 24 hours INTEGUMENTARY: Skin is warm and dry. Anterior chest incision well approximated and covered with dry intact dressing. Left radial artery harvest site well approximated. Left lower extremity EVH site well approximated without redness or drainage. NEUROLOGIC: Cranial nerves II through XII intact MUSKULOSKELETAL: Able to move all extremities, strength equal bilaterally PSYCHIATRIC: Alert and oriented to person place and time, appropriate affect, intact judgment and insight INVASIVE LINES AND TUBES: Mediastinal/left pleural chest tubes present and connected to wall suction, no air leaks present. Mediastinal tube with 130 mL serosanguineous drainage overnight, 400 mL in the last 24 hours. Left pleural chest tube with 120 mL serosanguineous drainage overnight, 500 mL in the last 24 hours. A/V epicardial pacemaker wires present, grounded. Right internal jugular [place]/Cordis, right radial arterial line present. Last CO/CI 4.0/2.1, PA 29/12, CVP 5. - Allied health notes Allied health notes reviewed: nursing - Labs CBC & Chem 7: 12/18/20 04:30 12/18/20 05:00 Labs: Abnormal Lab Results - Last 24 Hours (Table) 12/17/20 12/17/20 12/17/20 Range/Units 09:34 10:07 11:11 WBC (3.8-10.6) k/uL RBC (4.30-5.90) m/uL Hgb (13.0-17.5) gm/dL Hct (39.0-53.0) % Plt Count (150-450) k/uL Neutrophils # (1.3-7.7) k/uL PT (9.0-12.0) sec INR (<1.2) Chloride (98-107) mmol/L Glucose (74-99) mg/dL POC Glucose (mg/dL) 135 H 135 H 127 H (75-99) mg/dL Calcium (8.4-10.2) mg/dL AST (17-59) U/L ALT (4-49) U/L Total Protein (6.3-8.2) g/dL Albumin (3.5-5.0) g/dL 12/17/20 12/17/20 12/17/20 Range/Units 12:17 13:26 14:17 WBC (3.8-10.6) k/uL RBC (4.30-5.90) m/uL Hgb (13.0-17.5) gm/dL Hct (39.0-53.0) % Plt Count (150-450) k/uL Neutrophils # (1.3-7.7) k/uL PT (9.0-12.0) sec INR (<1.2) Chloride (98-107) mmol/L Glucose (74-99) mg/dL POC Glucose (mg/dL) 124 H 115 H 114 H (75-99) mg/dL Calcium (8.4-10.2) mg/dL AST (17-59) U/L ALT (4-49) U/L Total Protein (6.3-8.2) g/dL Albumin (3.5-5.0) g/dL 12/17/20 12/17/20 12/17/20 Range/Units 16:21 17:12 18:22 WBC (3.8-10.6) k/uL RBC (4.30-5.90) m/uL Hgb (13.0-17.5) gm/dL Hct (39.0-53.0) % Plt Count (150-450) k/uL Neutrophils # (1.3-7.7) k/uL PT (9.0-12.0) sec INR (<1.2) Chloride (98-107) mmol/L Glucose (74-99) mg/dL POC Glucose (mg/dL) 147 H 148 H 144 H (75-99) mg/dL Calcium (8.4-10.2) mg/dL AST (17-59) U/L ALT (4-49) U/L Total Protein (6.3-8.2) g/dL Albumin (3.5-5.0) g/dL 12/17/20 12/17/20 12/17/20 Range/Units 19:07 21:14 23:10 WBC (3.8-10.6) k/uL RBC (4.30-5.90) m/uL Hgb (13.0-17.5) gm/dL Hct (39.0-53.0) % Plt Count (150-450) k/uL Neutrophils # (1.3-7.7) k/uL PT (9.0-12.0) sec INR (<1.2) Chloride (98-107) mmol/L Glucose (74-99) mg/dL POC Glucose (mg/dL) 138 H 119 H 136 H (75-99) mg/dL Calcium (8.4-10.2) mg/dL AST (17-59) U/L ALT (4-49) U/L Total Protein (6.3-8.2) g/dL Albumin (3.5-5.0) g/dL 12/18/20 12/18/20 12/18/20 Range/Units 00:32 02:32 04:28 WBC (3.8-10.6) k/uL RBC (4.30-5.90) m/uL Hgb (13.0-17.5) gm/dL Hct (39.0-53.0) % Plt Count (150-450) k/uL Neutrophils # (1.3-7.7) k/uL PT (9.0-12.0) sec INR (<1.2) Chloride (98-107) mmol/L Glucose (74-99) mg/dL POC Glucose (mg/dL) 142 H 120 H 128 H (75-99) mg/dL Calcium (8.4-10.2) mg/dL AST (17-59) U/L ALT (4-49) U/L Total Protein (6.3-8.2) g/dL Albumin (3.5-5.0) g/dL 12/18/20 12/18/20 12/18/20 Range/Units 04:30 05:00 07:15 WBC 12.5 H (3.8-10.6) k/uL RBC 2.74 L (4.30-5.90) m/uL Hgb 8.5 L (13.0-17.5) gm/dL Hct 24.6 L (39.0-53.0) % Plt Count 85 L (150-450) k/uL Neutrophils # 9.7 H (1.3-7.7) k/uL PT 12.2 H (9.0-12.0) sec INR 1.2 H (<1.2) Chloride 110 H (98-107) mmol/L Glucose 121 H (74-99) mg/dL POC Glucose (mg/dL) (75-99) mg/dL Calcium 8.1 L (8.4-10.2) mg/dL AST 86 H (17-59) U/L ALT 61 H (4-49) U/L Total Protein 4.6 L (6.3-8.2) g/dL Albumin 2.7 L (3.5-5.0) g/dL 12/18/20 12/18/20 Range/Units 07:18 08:41 WBC (3.8-10.6) k/uL RBC (4.30-5.90) m/uL Hgb (13.0-17.5) gm/dL Hct (39.0-53.0) % Plt Count (150-450) k/uL Neutrophils # (1.3-7.7) k/uL PT (9.0-12.0) sec INR (<1.2) Chloride (98-107) mmol/L Glucose (74-99) mg/dL POC Glucose (mg/dL) 144 H 148 H (75-99) mg/dL Calcium (8.4-10.2) mg/dL AST (17-59) U/L ALT (4-49) U/L Total Protein (6.3-8.2) g/dL Albumin (3.5-5.0) g/dL - Imaging and Cardiology Chest x-ray: report reviewed, image reviewed Assessment and Plan Assessment: 1. Triple-vessel coronary artery disease, status post four-vessel CABG 2. Preserved left ventricular function 3. History of coronary artery disease with PCI to the LAD in 2005 4. Chronic atrial fibrillation on Coumadin for anticoagulation, status post exclusion of the left atrial appendage 5. History of hypertension, currently hypotensive due to vaso-plegia which was expected due to preoperative antihypertensives, on IV Levophed and Marcus- Synephrine 6. Hyperlipidemia, treated, cholesterol 123, LDL 153, triglycerides 181 7. Diet controlled diabetes mellitus, preoperative hemoglobin A1c 6.2% 8. Obstructive sleep apnea on home CPAP 9. Previous pituitary tumor 10. Never smoker, preoperative FEV1 91% of predicted 11. Daily wine consumption 13. Family history of premature coronary artery disease with father diagnosed before the age of 55. 14. Postoperative acute blood loss anemia and thrombocytopenia, expected Plan: 1. Continue low-dose aspirin, statin, Plavix, beta junito therapy. Will increase beta junito as tolerated. Lisinopril added for afterload reduction 2. Continue IV Primacor, will wean as able 3. Wean O2 as tolerated, bronchodilators per pulmonology. Encourage incentive spirometer use 10 times every hour while awake 4. Increase activity, ambulate as tolerated, PT/OT/cardiac rehab consulted 5. Will monitor daily labs and x-rays. Electrolyte replacement per protocol. 6. GI/DVT prophylaxis 7. Insulin management per primary care service 8. Pain control with current medication regimen 9. Continue chest tubes for another 24 hours. 10. Will discontinue swan once primacor weaned. Connect cordis to continuous CVP monitoring 11. Continue Barrow catheter for another 24 hours for [intake and output. Daily weights 12. No anticoagulation with Coumadin until all lines and tubes have been discontinued 13. More recommendations to follow based on patient's progress Time with Patient: Greater than 30
[2020-12-18 09:31] LABS: Glucose,Whole Blood 150 mg/dL (75-99)
[2020-12-18 12:02] LABS: Glucose,Whole Blood 108 mg/dL (75-99)
--- NOTE | 2020-12-18 12:13 | P.PN ---
Subjective Progress Note Date: 12/18/20 Principal diagnosis: Coronary artery disease This is a 80-year-old male patient with a history of atrial fibrillation, hyperlipidemia, hypertension, diabetes mellitus. Lifelong nonsmoker. who was found to have severe triple-vessel coronary artery disease with a totally occluded mid LAD and good collaterals and normal ejection fraction. He had been seen and evaluated by Dr. Edmond who recommended coronary artery bypass grafting. He presented here yesterday for elective surgery. He had undergone quadruple coronary artery bypass grafting utilizing a MORAN to the LAD, left radial artery to the first obtuse marginal artery, reverse saphenous vein graft to the second diagonal artery and posterior descending artery. He remains intubated and on the mechanical ventilator this morning. Current settings are assist-control mode at a rate of 12, tidal volume 500, FiO2 50% and a PEEP of 5. Morning blood gases revealed a P O2 of 76, pCO2 39, pH 7.43. He was found to the cardiac output of 3.5. Cardiac index of 1.8. Mediastinal chest tube with 1.3 L output in the past 24 hours. Left chest tube 900 mL output. He has a right internal jugular [place]-Sara catheter in place. Right arterial line in place. Left radial harvest site dressing dry and intact. ADOLFO in place. He is currently on a milrinone drip at 0.2 mg/kg/m. Insulin drip at 3 units per hour. Norepinephrine at 0.05 mcg/kg/m. Marcus-Synephrine at 0.8 mcg/kg/m. Propofol at 25 mcg/kg/m. 0.9 normal saline at 50 MLS per hour. He did have episode of atrial fibrillation with rapid ventricular response and received digoxin IV. He also has received albumin. 2 units of fresh frozen plasma. One unit of packed red blood cells. White count 9.3. Hemoglobin 8.6. Platelet count 97,000. INR 1.2. Fibrinogen 216. Sodium 139. Potassium 4.0. Bicarb 25. Creatinine 0.81. Glucose 132. Total protein 4.7. Albumin 3.0. Chest x-ray reveals cardiomegaly and chronic parenchymal changes with a small left pleural effusion and left greater than right bibasilar acute atelectasis. Mediastinal and left chest tubes in place. No pneumothorax seen. The patient is seen today 12/18/2020 in follow-up in intensive care unit. He was successfully extubated yesterday at approximately 12:45 PM. He is awake and alert in no acute distress. He is on 5 L nasal cannula and maintaining O2 saturations in the 90s. Chest x-ray reveals interval extubation. Cardiomegaly and chronic parenchymal changes with small left greater than right bibasilar acute atelectasis. Left-sided chest tube in place without evidence of pneumothorax. Mediastinal tubes in place. Right internal jugular catheter remains in place. Right radial arterial blood glucose. Current AV pacer wires in place. Remains in atrial fibrillation with controlled ventricular response. Cardiac output 4.1. Cardiac index 2.1. PA pressures 29/12. CVP is 6. He remains on milrinone at 0.1 mg/kg per minute. Insulin drip at 3 units an hour. 0.9 normal saline at 30 MLS per hour. He is pulling approximate 500-750 MLS on the incentive spirometer. Currently up in a recliner at the bedside. Heparin for DVT prophylaxis. Objective - Vital Signs Vital signs: Vital Signs Temp 37.6 F L 12/18/20 08:00 Pulse 100 12/18/20 11:00 Resp 38 H 12/18/20 11:00 BP 117/69 12/17/20 22:00 Pulse Ox 97 12/18/20 11:00 Intake & Output 12/17/20 12/18/20 12/18/20 18:59 06:59 18:59 Intake Total 1275.139 723.377 324.131 Output Total 977 715 340 Balance 298.139 8.377 -15.869 Weight 97.4 kg 93.8 kg Intake: IV 658 678 225 .9NS Cardiac Output 100 90 40 0.9NS Pressure Bags 108 108 45 Sodium Chloride 0.9% 1, 450 480 140 000 ml @ 20 mls/hr IV . Q24H [facility] Rx#:[id number] Intake, IV Titration 427.139 45.377 49.131 Amount Insulin Regular 100 unit 32.093 26.866 16.606 In Sodium Chloride 0.9% 100 ml @ Per Protocol IV .Q0M [facility]ENDA Rx#:[id number] Milrinone-D5w Pmx 20 mg 100 18.511 32.525 In Dextrose/Water 1 100ml .bag @ 0.2 MCG/KG/MIN 5. 19 mls/hr IV .[id number] [facility] Rx#:[id number] Norepinephrine 4 mg In 40.207 Sodium Chloride 0.9% 250 ml @ 0.05 MCG/KG/MIN 16. 478 mls/hr IV .[id number] [facility] Rx#:[id number] Phenylephrine 40 mg In 215.497 Sodium Chloride 0.9% 250 ml @ 0.5 MCG/KG/MIN 16. 478 mls/hr IV .[id number] [facility] Rx#:[id number] propofoL 1,000 mg In 39.342 Empty Bag 1 bag @ Titrate IV .Q0M BRENDA Rx#: [id number] Oral 100 50 Other 90 Output: Chest Tube Drainage 570 310 150 Left Pleural Chest Tube 320 160 90 Mediastinal Chest Tube X 250 150 60 2 Urine 407 405 190 Other: Voiding Method Indwelling Catheter Indwelling Catheter ABP, PAP, CO, CI - Last Documented Arterial Blood Pressure 135/62 Pulmonary Artery Pressure 28/14 Cardiac Output 3.4 Cardiac Index 1.7 - Exam GENERAL EXAM: Awake, alert 80-year-old gentleman, up in a recliner, on 5 L nasal cannula, no apparent distress. HEAD: Normocephalic. EYES: Normal reaction of pupils, equal size. NOSE: Clear with pink turbinates. THROAT: No erythema or exudates. NECK: Right [place]-Sara catheter secured in place No masses, no JVD. CHEST: Sternal dressing dry and intact, split mediastinal chest tubes, left chest tube secured in place, AV epicardial pacemaker wires grounded LUNGS: Equal air entry with faint crackles in the bases. CVS: S1 and S2 normal with no audible murmur, irregular rhythm. ABDOMEN: No hepatosplenomegaly, normal bowel sounds, no guarding or rigidity. SPINE: No scoliosis or deformity SKIN: No rashes CENTRAL NERVOUS SYSTEM: Alert, oriented 3, tone is normal in all 4 extremities. EXTREMITIES: Left dressing to the harvest site, ADOLFO in place. Right radial arterial line in place. There is trace peripheral edema. No clubbing, no cyanosis. Peripheral pulses are intact. - Labs CBC & Chem 7: 12/18/20 04:30 12/18/20 05:00 Labs: Abnormal Lab Results - Last 24 Hours (Table) 12/17/20 12/17/20 12/17/20 Range/Units 12:17 13:26 14:17 WBC (3.8-10.6) k/uL RBC (4.30-5.90) m/uL Hgb (13.0-17.5) gm/dL Hct (39.0-53.0) % Plt Count (150-450) k/uL Neutrophils # (1.3-7.7) k/uL PT (9.0-12.0) sec INR (<1.2) Chloride (98-107) mmol/L Glucose (74-99) mg/dL POC Glucose (mg/dL) 124 H 115 H 114 H (75-99) mg/dL Calcium (8.4-10.2) mg/dL AST (17-59) U/L ALT (4-49) U/L Total Protein (6.3-8.2) g/dL Albumin (3.5-5.0) g/dL 12/17/20 12/17/20 12/17/20 Range/Units 16:21 17:12 18:22 WBC (3.8-10.6) k/uL RBC (4.30-5.90) m/uL Hgb (13.0-17.5) gm/dL Hct (39.0-53.0) % Plt Count (150-450) k/uL Neutrophils # (1.3-7.7) k/uL PT (9.0-12.0) sec INR (<1.2) Chloride (98-107) mmol/L Glucose (74-99) mg/dL POC Glucose (mg/dL) 147 H 148 H 144 H (75-99) mg/dL Calcium (8.4-10.2) mg/dL AST (17-59) U/L ALT (4-49) U/L Total Protein (6.3-8.2) g/dL Albumin (3.5-5.0) g/dL 12/17/20 12/17/20 12/17/20 Range/Units 19:07 21:14 23:10 WBC (3.8-10.6) k/uL RBC (4.30-5.90) m/uL Hgb (13.0-17.5) gm/dL Hct (39.0-53.0) % Plt Count (150-450) k/uL Neutrophils # (1.3-7.7) k/uL PT (9.0-12.0) sec INR (<1.2) Chloride (98-107) mmol/L Glucose (74-99) mg/dL POC Glucose (mg/dL) 138 H 119 H 136 H (75-99) mg/dL Calcium (8.4-10.2) mg/dL AST (17-59) U/L ALT (4-49) U/L Total Protein (6.3-8.2) g/dL Albumin (3.5-5.0) g/dL 12/18/20 12/18/20 12/18/20 Range/Units 00:32 02:32 04:28 WBC (3.8-10.6) k/uL RBC (4.30-5.90) m/uL Hgb (13.0-17.5) gm/dL Hct (39.0-53.0) % Plt Count (150-450) k/uL Neutrophils # (1.3-7.7) k/uL PT (9.0-12.0) sec INR (<1.2) Chloride (98-107) mmol/L Glucose (74-99) mg/dL POC Glucose (mg/dL) 142 H 120 H 128 H (75-99) mg/dL Calcium (8.4-10.2) mg/dL AST (17-59) U/L ALT (4-49) U/L Total Protein (6.3-8.2) g/dL Albumin (3.5-5.0) g/dL 12/18/20 12/18/20 12/18/20 Range/Units 04:30 05:00 07:15 WBC 12.5 H (3.8-10.6) k/uL RBC 2.74 L (4.30-5.90) m/uL Hgb 8.5 L (13.0-17.5) gm/dL Hct 24.6 L (39.0-53.0) % Plt Count 85 L (150-450) k/uL Neutrophils # 9.7 H (1.3-7.7) k/uL PT 12.2 H (9.0-12.0) sec INR 1.2 H (<1.2) Chloride 110 H (98-107) mmol/L Glucose 121 H (74-99) mg/dL POC Glucose (mg/dL) (75-99) mg/dL Calcium 8.1 L (8.4-10.2) mg/dL AST 86 H (17-59) U/L ALT 61 H (4-49) U/L Total Protein 4.6 L (6.3-8.2) g/dL Albumin 2.7 L (3.5-5.0) g/dL 12/18/20 12/18/20 12/18/20 Range/Units 07:18 08:41 09:29 WBC (3.8-10.6) k/uL RBC (4.30-5.90) m/uL Hgb (13.0-17.5) gm/dL Hct (39.0-53.0) % Plt Count (150-450) k/uL Neutrophils # (1.3-7.7) k/uL PT (9.0-12.0) sec INR (<1.2) Chloride (98-107) mmol/L Glucose (74-99) mg/dL POC Glucose (mg/dL) 144 H 148 H 150 H (75-99) mg/dL Calcium (8.4-10.2) mg/dL AST (17-59) U/L ALT (4-49) U/L Total Protein (6.3-8.2) g/dL Albumin (3.5-5.0) g/dL 12/18/20 Range/Units 12:00 WBC (3.8-10.6) k/uL RBC (4.30-5.90) m/uL Hgb (13.0-17.5) gm/dL Hct (39.0-53.0) % Plt Count (150-450) k/uL Neutrophils # (1.3-7.7) k/uL PT (9.0-12.0) sec INR (<1.2) Chloride (98-107) mmol/L Glucose (74-99) mg/dL POC Glucose (mg/dL) 108 H (75-99) mg/dL Calcium (8.4-10.2) mg/dL AST (17-59) U/L ALT (4-49) U/L Total Protein (6.3-8.2) g/dL Albumin (3.5-5.0) g/dL Assessment and Plan Assessment: 1 Severe triple-vessel coronary artery disease status post coronary artery bypass grafting 4. Postoperative day #2. 2 Mechanical ventilator management, expected outcome of surgery, recovered and on 5 L nasal cannula 3 Previous history of coronary artery disease with PCI to the LAD in 2005 4 History of atrial fibrillation, anticoagulated with warfarin in the outpatient setting 5 Hypertension 6 Hyperlipidemia 7 Diabetes mellitus 8 History of obstructive sleep apnea, CPAP 9 History of pituitary tumor 10 Lifelong nonsmoker. FEV1 value of 91% of predicted Plan: The patient was seen and evaluated by Dr. Vásquez Chest x-ray and labs reviewed Titrate the FiO2 as tolerated Continue bronchodilators, continue incentive spirometer Increase his activity as tolerated We will continue to follow I, the cosigning physician, performed a history & physical examination of the patient. Lungs sounds faint crackles in the posterior bases. Maintaining good O2 saturations in the 90s on 5 L/m per nasal cannula. I discussed the assessment and plan of care with my nurse practitioner, Alisson Otero. I attest to the above note as dictated by her.
[2020-12-18] MEDS: lisinopriL 5 MG TAB PO SCH (12:29)
[2020-12-18 13:26] LABS: Glucose,Whole Blood 177 mg/dL (75-99)
[2020-12-18] MEDS: DILTIAZEM ORAL 30 MG TAB PO SCH ×2 (14:00→20:34)
[2020-12-18 14:27] LABS: Glucose,Whole Blood 172 mg/dL (75-99)
[2020-12-18 15:13] LABS: Glucose,Whole Blood 168 mg/dL (75-99)
[2020-12-18 16:30] LABS: Glucose,Whole Blood 149 mg/dL (75-99)
[2020-12-18 17:01] LABS: Glucose,Whole Blood 134 mg/dL (75-99)
[2020-12-18] MEDS: METOPROLOL TARTRATE 25 MG TAB PO SCH ×2 (17:01→23:36)
[2020-12-18 18:09] LABS: Glucose,Whole Blood 147 mg/dL (75-99)
[2020-12-18] MEDS: INSULIN DETEMIR (LEVEMIR) 100 UNIT/ML SYR SQ SCH (18:25)
--- NOTE | 2020-12-18 18:30 | P.PN ---
Subjective Resting in a chair Since he feels terrible No respiratory distress No chest discomfort just doesn't feel good Recently extubated On examination blood pressure 119/56 mmHg respirations 2024, afebrile pulse rate in the 90s Breath sounds are reduced bilaterally Heart sounds are soft Impression triple vessel coronary artery disease Permanent atrial fibrillation Hypertension Quadruple coronary artery bypass grafting with MORAN to the LAD, left radial to the obtuse marginal and saphenous vein graft to the second diagonal and PDA Exclusion of the left atrial appendage Plan Patient maintains normal rhythm aspirin and atorvastatin have been begun and low-dose beta blockers have been begun, on Plavix On low-dose diltiazem Also on lisinopril Continue current ICU care and postoperative cardio surgically Gradually reintroduce all cardiac medications Objective - Vital Signs Vital signs: Vital Signs Temp 37.7 F L 12/18/20 16:00 Pulse 85 12/18/20 18:00 Resp 30 H 12/18/20 18:00 BP 117/69 12/17/20 22:00 Pulse Ox 98 12/18/20 18:00 Intake & Output 12/17/20 12/18/20 12/18/20 18:59 06:59 18:59 Intake Total 1275.139 723.377 637.268 Output Total 977 715 788 Balance 298.139 8.377 -150.732 Weight 97.4 kg 93.8 kg Intake: IV 658 678 472 .9NS Cardiac Output 100 90 90 0.9NS Pressure Bags 108 108 102 Sodium Chloride 0.9% 1, 450 480 280 000 ml @ 20 mls/hr IV . Q24H BRENDA Rx#:[id number] Intake, IV Titration 427.139 45.377 115.268 Amount Insulin Regular 100 unit 32.093 26.866 54.716 In Sodium Chloride 0.9% 100 ml @ Per Protocol IV .Q0M BRENDA Rx#:[id number] Milrinone-D5w Pmx 20 mg 100 18.511 60.552 In Dextrose/Water 1 100ml .bag @ 0.2 MCG/KG/MIN 5. 19 mls/hr IV .[id number] BRENDA Rx#:[id number] Norepinephrine 4 mg In 40.207 Sodium Chloride 0.9% 250 ml @ 0.05 MCG/KG/MIN 16. 478 mls/hr IV .[id number] BRENDA Rx#:[id number] Phenylephrine 40 mg In 215.497 Sodium Chloride 0.9% 250 ml @ 0.5 MCG/KG/MIN 16. 478 mls/hr IV .[id number] BRENDA Rx#:[id number] propofoL 1,000 mg In 39.342 Empty Bag 1 bag @ Titrate IV .Q0M BRENDA Rx#: [id number] Oral 100 50 Other 90 Output: Chest Tube Drainage 570 310 360 Left Pleural Chest Tube 320 160 260 Mediastinal Chest Tube X 250 150 100 2 Urine 407 405 428 Other: Voiding Method Indwelling Catheter Indwelling Catheter Indwelling Catheter ABP, PAP, CO, CI - Last Documented Arterial Blood Pressure 91/48 Pulmonary Artery Pressure 32/17 Cardiac Output 4.4 Cardiac Index 2.2 - Labs CBC & Chem 7: 12/18/20 04:30 12/18/20 05:00 Labs: Abnormal Lab Results - Last 24 Hours (Table) 12/17/20 12/17/20 12/17/20 Range/Units 19:07 21:14 23:10 WBC (3.8-10.6) k/uL RBC (4.30-5.90) m/uL Hgb (13.0-17.5) gm/dL Hct (39.0-53.0) % Plt Count (150-450) k/uL Neutrophils # (1.3-7.7) k/uL PT (9.0-12.0) sec INR (<1.2) Chloride (98-107) mmol/L Glucose (74-99) mg/dL POC Glucose (mg/dL) 138 H 119 H 136 H (75-99) mg/dL Calcium (8.4-10.2) mg/dL AST (17-59) U/L ALT (4-49) U/L Total Protein (6.3-8.2) g/dL Albumin (3.5-5.0) g/dL 12/18/20 12/18/20 12/18/20 Range/Units 00:32 02:32 04:28 WBC (3.8-10.6) k/uL RBC (4.30-5.90) m/uL Hgb (13.0-17.5) gm/dL Hct (39.0-53.0) % Plt Count (150-450) k/uL Neutrophils # (1.3-7.7) k/uL PT (9.0-12.0) sec INR (<1.2) Chloride (98-107) mmol/L Glucose (74-99) mg/dL POC Glucose (mg/dL) 142 H 120 H 128 H (75-99) mg/dL Calcium (8.4-10.2) mg/dL AST (17-59) U/L ALT (4-49) U/L Total Protein (6.3-8.2) g/dL Albumin (3.5-5.0) g/dL 12/18/20 12/18/20 12/18/20 Range/Units 04:30 05:00 07:15 WBC 12.5 H (3.8-10.6) k/uL RBC 2.74 L (4.30-5.90) m/uL Hgb 8.5 L (13.0-17.5) gm/dL Hct 24.6 L (39.0-53.0) % Plt Count 85 L (150-450) k/uL Neutrophils # 9.7 H (1.3-7.7) k/uL PT 12.2 H (9.0-12.0) sec INR 1.2 H (<1.2) Chloride 110 H (98-107) mmol/L Glucose 121 H (74-99) mg/dL POC Glucose (mg/dL) (75-99) mg/dL Calcium 8.1 L (8.4-10.2) mg/dL AST 86 H (17-59) U/L ALT 61 H (4-49) U/L Total Protein 4.6 L (6.3-8.2) g/dL Albumin 2.7 L (3.5-5.0) g/dL 12/18/20 12/18/20 12/18/20 Range/Units 07:18 08:41 09:29 WBC (3.8-10.6) k/uL RBC (4.30-5.90) m/uL Hgb (13.0-17.5) gm/dL Hct (39.0-53.0) % Plt Count (150-450) k/uL Neutrophils # (1.3-7.7) k/uL PT (9.0-12.0) sec INR (<1.2) Chloride (98-107) mmol/L Glucose (74-99) mg/dL POC Glucose (mg/dL) 144 H 148 H 150 H (75-99) mg/dL Calcium (8.4-10.2) mg/dL AST (17-59) U/L ALT (4-49) U/L Total Protein (6.3-8.2) g/dL Albumin (3.5-5.0) g/dL 12/18/20 12/18/20 12/18/20 Range/Units 12:00 13:25 14:25 WBC (3.8-10.6) k/uL RBC (4.30-5.90) m/uL Hgb (13.0-17.5) gm/dL Hct (39.0-53.0) % Plt Count (150-450) k/uL Neutrophils # (1.3-7.7) k/uL PT (9.0-12.0) sec INR (<1.2) Chloride (98-107) mmol/L Glucose (74-99) mg/dL POC Glucose (mg/dL) 108 H 177 H 172 H (75-99) mg/dL Calcium (8.4-10.2) mg/dL AST (17-59) U/L ALT (4-49) U/L Total Protein (6.3-8.2) g/dL Albumin (3.5-5.0) g/dL 12/18/20 12/18/20 12/18/20 Range/Units 15:10 16:28 17:00 WBC (3.8-10.6) k/uL RBC (4.30-5.90) m/uL Hgb (13.0-17.5) gm/dL Hct (39.0-53.0) % Plt Count (150-450) k/uL Neutrophils # (1.3-7.7) k/uL PT (9.0-12.0) sec INR (<1.2) Chloride (98-107) mmol/L Glucose (74-99) mg/dL POC Glucose (mg/dL) 168 H 149 H 134 H (75-99) mg/dL Calcium (8.4-10.2) mg/dL AST (17-59) U/L ALT (4-49) U/L Total Protein (6.3-8.2) g/dL Albumin (3.5-5.0) g/dL 12/18/20 Range/Units 18:08 WBC (3.8-10.6) k/uL RBC (4.30-5.90) m/uL Hgb (13.0-17.5) gm/dL Hct (39.0-53.0) % Plt Count (150-450) k/uL Neutrophils # (1.3-7.7) k/uL PT (9.0-12.0) sec INR (<1.2) Chloride (98-107) mmol/L Glucose (74-99) mg/dL POC Glucose (mg/dL) 147 H (75-99) mg/dL Calcium (8.4-10.2) mg/dL AST (17-59) U/L ALT (4-49) U/L Total Protein (6.3-8.2) g/dL Albumin (3.5-5.0) g/dL
[2020-12-18 19:00] LABS: Glucose,Whole Blood 119 mg/dL (75-99)
[2020-12-18 20:14] LABS: Glucose,Whole Blood 99 mg/dL (75-99)
[2020-12-18] MEDS: SENNOSIDES-DOCUSATE SODIUM 1 EACH TAB PO SCH (20:34)
[2020-12-18] MEDS: MONTELUKAST 10 MG TAB PO SCH (20:34)
[2020-12-18] MEDS: LATANOPROST 0.005% OPHTH DROPS 2.5 ML BTL BOTH EYES SCH (20:34)
[2020-12-18 22:24] LABS: Glucose,Whole Blood 147 mg/dL (75-99)
[2020-12-18 23:18] LABS: Glucose,Whole Blood 145 mg/dL (75-99)
[2020-12-19 00:27] LABS: Glucose,Whole Blood 131 mg/dL (75-99)
[2020-12-19 01:37] LABS: Glucose,Whole Blood 115 mg/dL (75-99)
[2020-12-19 02:12] LABS: Glucose,Whole Blood 102 mg/dL (75-99)
[2020-12-19 03:12] LABS: Glucose,Whole Blood 115 mg/dL (75-99)
[2020-12-19 04:17] LABS: Glucose,Whole Blood 127 mg/dL (75-99)
[2020-12-19] MEDS: DILTIAZEM ORAL 30 MG TAB PO SCH ×4 (04:19→20:21)
[2020-12-19] MEDS: HEPARIN SODIUM,PORCINE/PF 5,000 UNIT/0.5 ML SYRINGE SQ SCH ×3 (04:19→18:04)
[2020-12-19 04:45] LABS: ALT 117 U/L (4-49); AST 104 U/L (17-59); African American GFR (CKD) >90 (>60 ml/min/1.73 sqM); Albumin 2.8 g/dL (3.5-5.0); Alkaline Phosphatase 54 U/L (38-126); Anion Gap 6 mmol/L; Blood Urea Nitrogen 25 mg/dL (9-20); Carbon Dioxide 20 mmol/L (22-30); Chloride 111 mmol/L (98-107); Glucose 119 mg/dL (74-99); Non-African American GFR(CKD) 84 (>60 ml/min/1.73 sqM); Potassium 4.2 mmol/L (3.5-5.1); Sodium 137 mmol/L (137-145); Total Bilirubin 1.3 mg/dL (0.2-1.3); Total Protein 4.8 g/dL (6.3-8.2)
[2020-12-19 05:06] LABS: Basophils % (A) 0 %; Eosinophils % (A) 0 %; HCT 25.5 % (39.0-53.0); HGB 8.9 gm/dL (13.0-17.5); Hyperchromasia Slight; Lymphocytes # (A) 2.1 k/uL (1.0-4.8); Lymphocytes % (A) 13 %; MCHC 34.8 g/dL (31.0-37.0); Mean Platelet Volume 8.3; Monocytes % (A) 6 %; Neutrophils # (A) 12.7 k/uL (1.3-7.7); Neutrophils % (A) 78 %; Platelet Count 116 k/uL (150-450); RBC 2.86 m/uL (4.30-5.90); RDW 14.3 % (11.5-15.5); WBC 16.2 k/uL (3.8-10.6)
[2020-12-19 06:24] LABS: Glucose,Whole Blood 130 mg/dL (75-99)
[2020-12-19] MEDS: PANTOPRAZOLE 40 MG/10 ML VIAL IVP SCH ×2 (07:57→21:39)
[2020-12-19] MEDS: CLOPIDOGREL 75 MG TAB PO SCH (07:57)
[2020-12-19] MEDS: ASPIRIN 81 MG PO SCH (07:58)
[2020-12-19] MEDS: ASCORBIC ACID 500 MG TAB PO SCH (07:58)
[2020-12-19] MEDS: ATORVASTATIN 40 MG TAB PO SCH (07:58)
[2020-12-19] MEDS: CHOLECALCIFEROL 25 MCG (1000 IU) TABLET PO SCH (07:58)
[2020-12-19] MEDS: METOPROLOL TARTRATE 25 MG TAB PO SCH ×3 (07:58→21:39)
[2020-12-19] MEDS ORDERED: FUROSEMIDE 10 MG/ML 2 ML VIAL IV ONE (08:42)
--- NOTE | 2020-12-19 08:51 | P.PN ---
Subjective Progress Note Date: 12/19/20 Principal diagnosis: Triple-vessel coronary artery disease. Previous medical history of coronary artery disease with PCI to the LAD in 2006, chronic atrial fibrillation on Coumadin for anticoagulation, preserved left ventricular function, hypertension, hyperlipidemia, diet controlled diabetes mellitus, obstructive sleep apnea on home CPAP, previous pituitary tumor, never smoker, daily wine consumption, and family history of premature coronary artery disease with father diagnosed before the age of 55. POD #3 quadruple coronary artery bypass grafting using the left internal mammary artery to the left anterior descending artery, left radial artery from the aorta to the first obtuse marginal artery, reverse saphenous vein graft from the aorta to the second diagonal artery, reverse saphenous vein graft from the aorta to the posterior descending artery, endoscopic harvesting of the left radial artery, endoscopic harvesting of the left greater saphenous vein from ankle to the groin, exclusion of the left atrial appendage using a 40 mm AtriClip, exploratory aortotomy, intraoperative transesophageal echocardiogram and epi- aortic scanning, intraoperative graft flow measurements using the UpNext system Postoperative acute blood loss anemia and thrombocytopenia, expected given hemodilution and cardiopulmonary bypass pump as well as chronic Coumadin use The patient was seen and examined with Dr. Edmond this morning in the intensive care unit, sitting up in the recliner in no acute distress. Appears very sleepy, sitter at bedside as patient has intermittent periods of confusion and agitation. Remains in controlled atrial fibrillation. Right internal jugular Cordis, right radial arterial line, mediastinal/left pleural chest tubes all remain. Does complain of post surgical pain mostly controlled with pain meds. Denies shortness of breath although hasn't been very active yet. Neurologically intact except mentation, knows its 2020 and that he's in a hospital but thinks he had ear surgery. Currently on room air, achieving 750-1000 on incentive spirometer. No other new concerns. Objective - Vital Signs Vital signs: Vital Signs Temp 97.4 F L 12/19/20 04:00 Pulse 85 12/19/20 07:00 Resp 15 12/19/20 07:00 BP 117/69 12/17/20 22:00 Pulse Ox 93 L 12/19/20 07:00 Intake & Output 12/18/20 12/19/20 12/19/20 18:59 06:59 18:59 Intake Total 637.268 744.228 26 Output Total 788 670 45 Balance -150.732 74.228 -19 Weight 91.3 kg Intake: IV 472 312 26 .9NS Cardiac Output 90 0.9NS Pressure Bags 102 72 6 Sodium Chloride 0.9% 1, 280 240 20 000 ml @ 20 mls/hr IV . Q24H [facility] Rx#:[id number] Intake, IV Titration 115.268 32.228 Amount Insulin Regular 100 unit 54.716 32.228 In Sodium Chloride 0.9% 100 ml @ Per Protocol IV .Q0M [facility]ENDA Rx#:[id number] Milrinone-D5w Pmx 20 mg 60.552 In Dextrose/Water 1 100ml .bag @ 0.2 MCG/KG/MIN 5. 19 mls/hr IV .[id number] [facility]ENDA Rx#:[id number] Oral 50 400 Output: Chest Tube Drainage 360 250 10 Left Pleural Chest Tube 260 180 10 Mediastinal Chest Tube X 100 70 0 2 Urine 428 420 35 Other: Voiding Method Indwelling Catheter Indwelling Catheter ABP, PAP, CO, CI - Last Documented Arterial Blood Pressure 107/48 Pulmonary Artery Pressure 32/17 Cardiac Output 4.4 Cardiac Index 2.2 - Exam CONSTITUTIONAL: Sitting up in recliner, appears comfortable, no acute distress RESPIRATORY: Lungs sounds diminished bilaterally. Respirations even, nonlabored. Currently on room air with oxygen saturation 95%. Able to achieve 750-1000 mL on incentive spirometer. Strong cough CARDIOVASCULAR: S1, S2 present. Irregular rate and rhythm, chronic atrial fibrillation on telemetry. Sternum stable. Palpable peripheral pulses bilaterally. Generalized edema present. Heart hugger in place with patient attempting to use appropriately. Antiembolism stockings, SCDs present. GASTROINTESTINAL: Abdomen soft, nontender, nondistended, round. Hypoactive bowel sounds present 4 quadrants. Tolerating minimal clear liquids. Positive flatus GENITOURINARY: Barrow present draining yellow urine. Output overnight 20-60 mL per hour, 848 mL in the last 24 hours INTEGUMENTARY: Skin is warm and dry. Anterior chest incision well approximated and covered with dry intact dressing. Left radial artery harvest site well approximated. Left lower extremity EVH site well approximated without redness or drainage. NEUROLOGIC: Cranial nerves II through XII intact MUSKULOSKELETAL: Able to move all extremities, strength equal bilaterally PSYCHIATRIC: Alert and oriented to person place and time but thinks we did ear surgery, INVASIVE LINES AND TUBES: Mediastinal/left pleural chest tubes present and con nected to wall suction, no air leaks present. Mediastinal tube with 130 mL serosanguineous drainage overnight, 400 mL in the last 24 hours. Left pleural chest tube with 120 mL serosanguineous drainage overnight, 500 mL in the last 24 hours. A/V epicardial pacemaker wires present, grounded. Right internal jugular Concord/Cordis, right radial arterial line present. Last CO/CI 4.0/2.1, PA 11/03, CVP 5. - Labs CBC & Chem 7: 12/19/20 04:15 12/19/20 04:15 Labs: Abnormal Lab Results - Last 24 Hours (Table) 12/18/20 12/18/20 12/18/20 Range/Units 08:41 09:29 12:00 WBC (3.8-10.6) k/uL RBC (4.30-5.90) m/uL Hgb (13.0-17.5) gm/dL Hct (39.0-53.0) % Plt Count (150-450) k/uL Neutrophils # (1.3-7.7) k/uL Chloride (98-107) mmol/L Carbon Dioxide (22-30) mmol/L BUN (9-20) mg/dL Glucose (74-99) mg/dL POC Glucose (mg/dL) 148 H 150 H 108 H (75-99) mg/dL Calcium (8.4-10.2) mg/dL AST (17-59) U/L ALT (4-49) U/L Total Protein (6.3-8.2) g/dL Albumin (3.5-5.0) g/dL 12/18/20 12/18/20 12/18/20 Range/Units 13:25 14:25 15:10 WBC (3.8-10.6) k/uL RBC (4.30-5.90) m/uL Hgb (13.0-17.5) gm/dL Hct (39.0-53.0) % Plt Count (150-450) k/uL Neutrophils # (1.3-7.7) k/uL Chloride (98-107) mmol/L Carbon Dioxide (22-30) mmol/L BUN (9-20) mg/dL Glucose (74-99) mg/dL POC Glucose (mg/dL) 177 H 172 H 168 H (75-99) mg/dL Calcium (8.4-10.2) mg/dL AST (17-59) U/L ALT (4-49) U/L Total Protein (6.3-8.2) g/dL Albumin (3.5-5.0) g/dL 12/18/20 12/18/20 12/18/20 Range/Units 16:28 17:00 18:08 WBC (3.8-10.6) k/uL RBC (4.30-5.90) m/uL Hgb (13.0-17.5) gm/dL Hct (39.0-53.0) % Plt Count (150-450) k/uL Neutrophils # (1.3-7.7) k/uL Chloride (98-107) mmol/L Carbon Dioxide (22-30) mmol/L BUN (9-20) mg/dL Glucose (74-99) mg/dL POC Glucose (mg/dL) 149 H 134 H 147 H (75-99) mg/dL Calcium (8.4-10.2) mg/dL AST (17-59) U/L ALT (4-49) U/L Total Protein (6.3-8.2) g/dL Albumin (3.5-5.0) g/dL 12/18/20 12/18/20 12/18/20 Range/Units 18:59 22:22 23:17 WBC (3.8-10.6) k/uL RBC (4.30-5.90) m/uL Hgb (13.0-17.5) gm/dL Hct (39.0-53.0) % Plt Count (150-450) k/uL Neutrophils # (1.3-7.7) k/uL Chloride (98-107) mmol/L Carbon Dioxide (22-30) mmol/L BUN (9-20) mg/dL Glucose (74-99) mg/dL POC Glucose (mg/dL) 119 H 147 H 145 H (75-99) mg/dL Calcium (8.4-10.2) mg/dL AST (17-59) U/L ALT (4-49) U/L Total Protein (6.3-8.2) g/dL Albumin (3.5-5.0) g/dL 12/19/20 12/19/20 12/19/20 Range/Units 00:25 01:16 02:08 WBC (3.8-10.6) k/uL RBC (4.30-5.90) m/uL Hgb (13.0-17.5) gm/dL Hct (39.0-53.0) % Plt Count (150-450) k/uL Neutrophils # (1.3-7.7) k/uL Chloride (98-107) mmol/L Carbon Dioxide (22-30) mmol/L BUN (9-20) mg/dL Glucose (74-99) mg/dL POC Glucose (mg/dL) 131 H 115 H 102 H (75-99) mg/dL Calcium (8.4-10.2) mg/dL AST (17-59) U/L ALT (4-49) U/L Total Protein (6.3-8.2) g/dL Albumin (3.5-5.0) g/dL 12/19/20 12/19/20 12/19/20 Range/Units 03:10 04:13 04:15 WBC 16.2 H (3.8-10.6) k/uL RBC 2.86 L (4.30-5.90) m/uL Hgb 8.9 L (13.0-17.5) gm/dL Hct 25.5 L (39.0-53.0) % Plt Count 116 L (150-450) k/uL Neutrophils # 12.7 H (1.3-7.7) k/uL Chloride (98-107) mmol/L Carbon Dioxide (22-30) mmol/L BUN (9-20) mg/dL Glucose (74-99) mg/dL POC Glucose (mg/dL) 115 H 127 H (75-99) mg/dL Calcium (8.4-10.2) mg/dL AST (17-59) U/L ALT (4-49) U/L Total Protein (6.3-8.2) g/dL Albumin (3.5-5.0) g/dL 12/19/20 12/19/20 Range/Units 04:15 06:23 WBC (3.8-10.6) k/uL RBC (4.30-5.90) m/uL Hgb (13.0-17.5) gm/dL Hct (39.0-53.0) % Plt Count (150-450) k/uL Neutrophils # (1.3-7.7) k/uL Chloride 111 H (98-107) mmol/L Carbon Dioxide 20 L (22-30) mmol/L BUN 25 H (9-20) mg/dL Glucose 119 H (74-99) mg/dL POC Glucose (mg/dL) 130 H (75-99) mg/dL Calcium 8.0 L (8.4-10.2) mg/dL AST 104 H (17-59) U/L ALT 117 H (4-49) U/L Total Protein 4.8 L (6.3-8.2) g/dL Albumin 2.8 L (3.5-5.0) g/dL Assessment and Plan Assessment: 1. Triple-vessel coronary artery disease, status post four-vessel CABG 2. Preserved left ventricular function 3. History of coronary artery disease with PCI to the LAD in 2005 4. Chronic atrial fibrillation on Coumadin for anticoagulation, status post exclusion of the left atrial appendage 5. History of hypertension, currently hypotensive due to vaso-plegia which was expected due to preoperative antihypertensives, on IV Levophed and Marcus- Synephrine 6. Hyperlipidemia, treated, cholesterol 123, LDL 153, triglycerides 181 7. Diet controlled diabetes mellitus, preoperative hemoglobin A1c 6.2% 8. Obstructive sleep apnea on home CPAP 9. Previous pituitary tumor 10. Never smoker, preoperative FEV1 91% of predicted 11. Daily wine consumption 13. Family history of premature coronary artery disease with father diagnosed before the age of 55. 14. Postoperative acute blood loss anemia and thrombocytopenia, expected Plan: 1. Continue low-dose aspirin, statin, Plavix, beta junito therapy. Will increase beta junito as tolerated. Continue lisinopril for afterload reduction 2. Continue cardizem for radial artery spasm prophylaxis, afib heart rate control 3. Wean O2 as tolerated, bronchodilators per pulmonology. Encourage incentive spirometer use 10 times every hour while awake 4. Increase activity, ambulate as tolerated, PT/OT/cardiac rehab consulted 5. Will monitor daily labs and x-rays. Electrolyte replacement per protocol. Will give lasix 20 mg IVP x 1 today 6. GI/DVT prophylaxis 7. Insulin management per primary care service 8. Pain control with current medication regimen. Avoid narcotics 9. Will discontinue chest tubes, cordis, dixie 10. Will discontinue epicardial pacer wires, patient to remain on bedrest for 1 hour post wire removal 11. Discontinue Barrow catheter after diuresis. May bladder scan and straight cath for greater than 300 mL residual 12. Strict accurate intake and output. Daily weights 13. Will re-start anticoagulation with Coumadin later today vs. tomorrow 14. Reorient PRN. Keep in ICU for 1 more day for closer monitoring 15. More recommendations to follow based on patient's progress Time with Patient: Greater than 30
--- NOTE | 2020-12-19 08:51 | XR ---
EXAMINATION TYPE: XR chest 1V portable DATE OF EXAM: 12/19/2020 Comparison: 12/18/2020 Clinical History: 80-year-old male post cardiac surgery Findings: Median sternotomy wires are present. Post-CABG clips. The stone drains. Epicardial pacer leads. Left- sided chest tube. Hazy lower lung densities likely small layering bilateral pleural effusions. Suspec t some patchy left basilar atelectasis that is showing some improvement from prior. No appreciable pn eumothorax. Heart borderline enlarged. Impression: Postoperative change with small layering pleural effusions and some improving postsurgical atelectasi s at the left base.
[2020-12-19] MEDS: IPRATROPIUM-ALBUTEROL 3 ML NEB INHALATION SCH ×4 (09:32→20:33)
--- NOTE | 2020-12-19 09:54 | P.PN ---
Subjective Progress Note Date: 12/18/20 HISTORY OF PRESENT ILLNESS This is a 80-year-old male patient of Dr. Campos and Dr. Mullins with past medical history of chronic persistent atrial fibrillation, diabetes mellitus type 2, hypertension, hyperlipidemia, history of pituitary tumor resection, obstructive sleep apnea on BiPAP, gastroesophageal reflux disease, benign prostatic hypertrophy. He should also has history of coronary artery disease status post PCI to the LAD in 2005, heart catheterization in October 2020 found severe triple-vessel disease, subsequently admitted to the hospital for elective coronary artery bypass grafting 12/16 MORAN to LAD, left radial artery from the aorta to the first obtuse marginal artery, reverse saphenous vein graft from the aorta to the second diagonal artery, reverse saphenous vein graft from the aorta to the posterior descending artery, endoscopic harvesting of the left radial artery, endoscopic harvesting of the left greater saphenous vein from ankle to the groin, exclusion of the left atrial appendage. Patient is seen today in the intensive care unit. He remains intubated and on mechanical ventilation but has done well with sedation holiday and is expected to be extubated this morning. Patient's is at the bedside. He is currently on insulin drip at 3 units p er hour. Vent settings are tidal volume 500, FiO2 50 and PEEP of 5. quality assurance monitor chassis is atrial fibrillation rate controlled. 12/18: Patient has been successfully extubated and is found today sitting in a chair in the intensive care unit. He states his pain is controlled. He denies having any abdominal pain and no diarrhea. He is having good urine output of 35-45 mL per hour. Blood sugars are running between 120 and 150. Patient is on insulin drip and will plan to see transition to Levemir 12 units tonight along with NovoLog scale before meals and at bedtime. Patient is followed by multiple consultants. Patient's and daughter are at bedside. REVIEW OF SYSTEMS Constitutional: No fever, no chills, no night sweats. No weight change. No weakness, reports fatigue no lethargy. No daytime sleepiness. EENT: No headache. No blurred vision or double vision, no loss of vision. No loss of Hearing, no ringing in the ears, no dizziness. No nasal drainage or congestion. No epistaxis. No sore throat. Lungs: No shortness of breath, cough, no sputum production. No wheezing. Cardiovascular: No chest pain, no lower extremity edema. No palpitations. No paroxysmal nocturnal dyspnea. No orthopnea. No lightheadedness or dizziness. No syncopal episodes. Abdominal: No abdominal pain. No nausea, vomiting. No diarrhea. No constipation. No bloody or tarry stools.. No loss of appetite. Genitourinary: No dysuria, increased frequency, urgency. No urinary retention. Musculoskeletal: No myalgias. No muscle weakness, no gait dysfunction, no frequent falls. No back pain. No neck pain. Integumentary: No wounds, no lesions. No rash or pruritus. No unusual bruising. No change in hair or nails. Neurologic: No aphasia. No facial droop. No change in mentation. No head injury. No headache. No paralysis. No paresthesia. Psychiatric: No depression. No anxiety. Endocrine: No abnormal blood sugars. PHYSICAL EXAMINATION Gen: This is a 80-year-old male. He is resting in ICU bed, on mechanical ventilation and appears to be in no acute distress. HEENT: Head is atraumatic, normocephalic. Pupils equal, round. Sclerae is anicteric. Oral ET tube in place. Right IJ Cordis NECK: Supple. No JVD. No lymphadenopathy. No thyromegaly. LUNGS: Diminished bilaterally. No wheezes or rhonchi. No intercostal ret ractions. Chest tubes in place. HEART: Irregular rate and rhythm. No murmur. ABDOMEN: Soft. Bowel sounds are present. No masses. No tenderness. EXTREMITIES: No pedal edema. No calf tenderness. NEUROLOGICAL: Patient is awake, alert and oriented x3. Cranial nerves 2 through 12 are grossly intact. No neuro deficits noted. ASSESSMENT AND PLAN 1. Coronary artery disease status post 4 vessel CABG 12/16. Continue current management per cardio thoracic surgery Diplopia. Continue aspirin 81 mg daily, Lipitor 40 mg daily, Lopressor 12.5 mg twice daily 2. Chronic persistent atrial fibrillation. Continue Lopressor. 3. Diabetes mellitus type 2. Insulin drip will be transitioned to Levemir 12 units tonight with NovoLog scale before meals and at bedtime 4. Hypertension. Continue Lopressor 12.5 mg daily. 5. Hyperlipidemia. 6. History of pituitary gland resection. 7. Obstructive sleep apnea on BiPAP. 8. Gastroesophageal reflux disease. 9. Benign prostatic hypertrophy. Barrow catheter for now. Monitor for urinary retention. DISCHARGE PLAN Home with [facility]. Impression and plan of care have been directed as dictated by the signing physician. Erica Alfredo nurse practitioner acting as scribe for signing phys briellean. Objective - Vital Signs Vital signs: Vital Signs Temp 37.6 F L 12/18/20 08:00 Pulse 95 12/18/20 09:00 Resp 29 H 12/18/20 09:00 BP 117/69 12/17/20 22:00 Pulse Ox 97 12/18/20 09:00 Intake & Output 12/17/20 12/18/20 12/18/20 18:59 06:59 18:59 Intake Total 1275.139 723.377 266.131 Output Total 977 715 200 Balance 298.139 8.377 66.131 Weight 97.4 kg 93.8 kg Intake: IV 658 678 167 .9NS Cardiac Output 100 90 40 0.9NS Pressure Bags 108 108 27 Sodium Chloride 0.9% 1, 450 480 100 000 ml @ 20 mls/hr IV . Q24H BRENDA Rx#:[id number] Intake, IV Titration 427.139 45.377 49.131 Amount Insulin Regular 100 unit 32.093 26.866 16.606 In Sodium Chloride 0.9% 100 ml @ Per Protocol IV .Q0M BRENDA Rx#:[id number] Milrinone-D5w Pmx 20 mg 100 18.511 32.525 In Dextrose/Water 1 100ml .bag @ 0.2 MCG/KG/MIN 5. 19 mls/hr IV .[id number] BRENDA Rx#:[id number] Norepinephrine 4 mg In 40.207 Sodium Chloride 0.9% 250 ml @ 0.05 MCG/KG/MIN 16. 478 mls/hr IV .[id number] BRENDA Rx#:[id number] Phenylephrine 40 mg In 215.497 Sodium Chloride 0.9% 250 ml @ 0.5 MCG/KG/MIN 16. 478 mls/hr IV .[id number] BRENDA Rx#:[id number] propofoL 1,000 mg In 39.342 Empty Bag 1 bag @ Titrate IV .Q0M BRENDA Rx#: [id number] Oral 100 50 Other 90 Output: Chest Tube Drainage 570 310 90 Left Pleural Chest Tube 320 160 50 Mediastinal Chest Tube X 250 150 40 2 Urine 407 405 110 Other: Voiding Method Indwelling Catheter Indwelling Catheter ABP, PAP, CO, CI - Last Documented Arterial Blood Pressure 148/62 Pulmonary Artery Pressure 29/13 Cardiac Output 3.4 Cardiac Index 1.7 - Labs CBC & Chem 7: 12/19/20 04:15 12/19/20 04:15 Labs: Abnormal Lab Results - Last 24 Hours (Table) 12/17/20 12/17/20 12/17/20 Range/Units 11:11 12:17 13:26 WBC (3.8-10.6) k/uL RBC (4.30-5.90) m/uL Hgb (13.0-17.5) gm/dL Hct (39.0-53.0) % Plt Count (150-450) k/uL Neutrophils # (1.3-7.7) k/uL PT (9.0-12.0) sec INR (<1.2) Chloride (98-107) mmol/L Glucose (74-99) mg/dL POC Glucose (mg/dL) 127 H 124 H 115 H (75-99) mg/dL Calcium (8.4-10.2) mg/dL AST (17-59) U/L ALT (4-49) U/L Total Protein (6.3-8.2) g/dL Albumin (3.5-5.0) g/dL 12/17/20 12/17/20 12/17/20 Range/Units 14:17 16:21 17:12 WBC (3.8-10.6) k/uL RBC (4.30-5.90) m/uL Hgb (13.0-17.5) gm/dL Hct (39.0-53.0) % Plt Count (150-450) k/uL Neutrophils # (1.3-7.7) k/uL PT (9.0-12.0) sec INR (<1.2) Chloride (98-107) mmol/L Glucose (74-99) mg/dL POC Glucose (mg/dL) 114 H 147 H 148 H (75-99) mg/dL Calcium (8.4-10.2) mg/dL AST (17-59) U/L ALT (4-49) U/L Total Protein (6.3-8.2) g/dL Albumin (3.5-5.0) g/dL 12/17/20 12/17/20 12/17/20 Range/Units 18:22 19:07 21:14 WBC (3.8-10.6) k/uL RBC (4.30-5.90) m/uL Hgb (13.0-17.5) gm/dL Hct (39.0-53.0) % Plt Count (150-450) k/uL Neutrophils # (1.3-7.7) k/uL PT (9.0-12.0) sec INR (<1.2) Chloride (98-107) mmol/L Glucose (74-99) mg/dL POC Glucose (mg/dL) 144 H 138 H 119 H (75-99) mg/dL Calcium (8.4-10.2) mg/dL AST (17-59) U/L ALT (4-49) U/L Total Protein (6.3-8.2) g/dL Albumin (3.5-5.0) g/dL 12/17/20 12/18/20 12/18/20 Range/Units 23:10 00:32 02:32 WBC (3.8-10.6) k/uL RBC (4.30-5.90) m/uL Hgb (13.0-17.5) gm/dL Hct (39.0-53.0) % Plt Count (150-450) k/uL Neutrophils # (1.3-7.7) k/uL PT (9.0-12.0) sec INR (<1.2) Chloride (98-107) mmol/L Glucose (74-99) mg/dL POC Glucose (mg/dL) 136 H 142 H 120 H (75-99) mg/dL Calcium (8.4-10.2) mg/dL AST (17-59) U/L ALT (4-49) U/L Total Protein (6.3-8.2) g/dL Albumin (3.5-5.0) g/dL 12/18/20 12/18/20 12/18/20 Range/Units 04:28 04:30 05:00 WBC 12.5 H (3.8-10.6) k/uL RBC 2.74 L (4.30-5.90) m/uL Hgb 8.5 L (13.0-17.5) gm/dL Hct 24.6 L (39.0-53.0) % Plt Count 85 L (150-450) k/uL Neutrophils # 9.7 H (1.3-7.7) k/uL PT (9.0-12.0) sec INR (<1.2) Chloride 110 H (98-107) mmol/L Glucose 121 H (74-99) mg/dL POC Glucose (mg/dL) 128 H (75-99) mg/dL Calcium 8.1 L (8.4-10.2) mg/dL AST 86 H (17-59) U/L ALT 61 H (4-49) U/L Total Protein 4.6 L (6.3-8.2) g/dL Albumin 2.7 L (3.5-5.0) g/dL 12/18/20 12/18/20 12/18/20 Range/Units 07:15 07:18 08:41 WBC (3.8-10.6) k/uL RBC (4.30-5.90) m/uL Hgb (13.0-17.5) gm/dL Hct (39.0-53.0) % Plt Count (150-450) k/uL Neutrophils # (1.3-7.7) k/uL PT 12.2 H (9.0-12.0) sec INR 1.2 H (<1.2) Chloride (98-107) mmol/L Glucose (74-99) mg/dL POC Glucose (mg/dL) 144 H 148 H (75-99) mg/dL Calcium (8.4-10.2) mg/dL AST (17-59) U/L ALT (4-49) U/L Total Protein (6.3-8.2) g/dL Albumin (3.5-5.0) g/dL 12/18/20 Range/Units 09:29 WBC (3.8-10.6) k/uL RBC (4.30-5.90) m/uL Hgb (13.0-17.5) gm/dL Hct (39.0-53.0) % Plt Count (150-450) k/uL Neutrophils # (1.3-7.7) k/uL PT (9.0-12.0) sec INR (<1.2) Chloride (98-107) mmol/L Glucose (74-99) mg/dL POC Glucose (mg/dL) 150 H (75-99) mg/dL Calcium (8.4-10.2) mg/dL AST (17-59) U/L ALT (4-49) U/L Total Protein (6.3-8.2) g/dL Albumin (3.5-5.0) g/dL
[2020-12-19 11:35] LABS: Glucose,Whole Blood 114 mg/dL (75-99)
[2020-12-19] MEDS: INSULIN ASPART (NovoLOG) 100 UNIT/ML VIAL SQ SCH ×3 (13:04→21:40)
[2020-12-19] MEDS: lisinopriL 5 MG TAB PO SCH (13:08)
--- NOTE | 2020-12-19 13:16 | P.PN ---
Subjective Progress Note Date: 12/19/20 Principal diagnosis: Coronary artery disease This is a 80-year-old male patient with a history of atrial fibrillation, hyperlipidemia, hypertension, diabetes mellitus. Lifelong nonsmoker. who was found to have severe triple-vessel coronary artery disease with a totally occluded mid LAD and good collaterals and normal ejection fraction. He had been seen and evaluated by Dr. Edmond who recommended coronary artery bypass grafting. He presented here yesterday for elective surgery. He had undergone quadruple coronary artery bypass grafting utilizing a MORAN to the LAD, left radial artery to the first obtuse marginal artery, reverse saphenous vein graft to the second diagonal artery and posterior descending artery. He remains intubated and on the mechanical ventilator this morning. Current settings are assist-control mode at a rate of 12, tidal volume 500, FiO2 50% and a PEEP of 5. Morning blood gases revealed a P O2 of 76, pCO2 39, pH 7.43. He was found to the cardiac output of 3.5. Cardiac index of 1.8. Mediastinal chest tube with 1.3 L output in the past 24 hours. Left chest tube 900 mL output. He has a right internal jugular Vale-Sara catheter in place. Right arterial line in place. Left radial harvest site dressing dry and intact. ADOLFO in place. He is currently on a milrinone drip at 0.2 mg/kg/m. Insulin drip at 3 units per hour. Norepinephrine at 0.05 mcg/kg/m. Marcus-Synephrine at 0.8 mcg/kg/m. Propofol at 25 mcg/kg/m. 0.9 normal saline at 50 MLS per hour. He did have episode of atrial fibrillation with rapid ventricular response and received digoxin IV. He also has received albumin. 2 units of fresh frozen plasma. One unit of packed red blood cells. White count 9.3. Hemoglobin 8.6. Platelet count 97,000. INR 1.2. Fibrinogen 216. Sodium 139. Potassium 4.0. Bicarb 25. Creatinine 0.81. Glucose 132. Total protein 4.7. Albumin 3.0. Chest x-ray reveals cardiomegaly and chronic parenchymal changes with a small left pleural effusion and left greater than right bibasilar acute atelectasis. Mediastinal and left chest tubes in place. No pneumothorax seen. The patient is seen today 12/18/2020 in follow-up in intensive care unit. He was successfully extubated yesterday at approximately 12:45 PM. He is awake and alert in no acute distress. He is on 5 L nasal cannula and maintaining O2 saturations in the 90s. Chest x-ray reveals interval extubation. Cardiomegaly and chronic parenchymal changes with small left greater than right bibasilar acute atelectasis. Left-sided chest tube in place without evidence of pneumothorax. Mediastinal tubes in place. Right internal jugular catheter remains in place. Right radial arterial blood glucose. Current AV pacer wires in place. Remains in atrial fibrillation with controlled ventricular response. Cardiac output 4.1. Cardiac index 2.1. PA pressures 29/12. CVP is 6. He remains on milrinone at 0.1 mg/kg per minute. Insulin drip at 3 units an hour. 0.9 normal saline at 30 MLS per hour. He is pulling approximate 500-750 MLS on the incentive spirometer. Currently up in a recliner at the bedside. Heparin for DVT prophylaxis. The patient is seen today 12/19/2020 in follow-up in the intensive care unit. Postoperative day #3. He is currently sitting up in a chair at the bedside. Awake and alert in no acute distress. He was having some periods of confusion. morning babysitter is at the bedside. He is maintaining O2 saturations in the mid 90s on room air. He is off most drips. He is still on insulin at 5 units per hour. 0.9#20 MLS per hour. Mediastinal chest tube has remain in place with 120 ML's house and 60 ML's of the left chest. He is remaining in sinus rhythm. Pacer wires have been removed. Needs increased encouragement regarding use the incentive spirometer. Chest x-ray reveals postoperative changes with small layering pleural effusions and some improvement in the atelectasis at the left base. If he did require 2 units of fresh frozen plasma one unit of red blood cells this admission. White count 16.2. Hemoglobin 8.9. Platelets 116. Sodium 137. Potassium 4.2. Bicarb 20. Creatinine 0.84. AST 104. ALT 114. Heparin for DVT prophylaxis. Objective - Vital Signs Vital signs: Vital Signs Temp 97.9 F 12/19/20 08:00 Pulse 81 12/19/20 11:00 Resp 23 12/19/20 11:00 BP 117/69 12/17/20 22:00 Pulse Ox 95 12/19/20 11:00 Intake & Output 12/18/20 12/19/20 12/19/20 18:59 06:59 18:59 Intake Total 637.268 744.228 250 Output Total 788 670 540 Balance -150.732 74.228 -290 Weight 91.3 kg Intake: IV 472 312 130 .9NS Cardiac Output 90 0.9NS Pressure Bags 102 72 30 Sodium Chloride 0.9% 1, 280 240 100 000 ml @ 20 mls/hr IV . Q24H BRENDA Rx#:[id number] Intake, IV Titration 115.268 32.228 Amount Insulin Regular 100 unit 54.716 32.228 In Sodium Chloride 0.9% 100 ml @ Per Protocol IV .Q0M BRENDA Rx#:[id number] Milrinone-D5w Pmx 20 mg 60.552 In Dextrose/Water 1 100ml .bag @ 0.2 MCG/KG/MIN 5. 19 mls/hr IV .[id number] BRENDA Rx#:[id number] Oral 50 400 120 Output: Chest Tube Drainage 360 250 10 Left Pleural Chest Tube 260 180 10 Mediastinal Chest Tube X 100 70 0 2 Urine 428 420 530 Other: Voiding Method Indwelling Catheter Indwelling Catheter Indwelling Catheter ABP, PAP, CO, CI - Last Documented Arterial Blood Pressure 115/51 Pulmonary Artery Pressure 32/17 Cardiac Output 4.4 Cardiac Index 2.2 - Exam GENERAL EXAM: Awake, alert 80-year-old gentleman, up in a recliner, on room air, no apparent distress. HEAD: Normocephalic. EYES: Normal reaction of pupils, equal size. NOSE: Clear with pink turbinates. THROAT: No erythema or exudates. NECK: Right Vale-Sara catheter secured in place No masses, no JVD. CHEST: Sternal dressing dry and intact, split mediastinal chest tubes, left chest tube secured in place LUNGS: Equal air entry with faint crackles in the bases. CVS: S1 and S2 normal with no audible murmur, irregular rhythm. ABDOMEN: No hepatosplenomegaly, normal bowel sounds, no guarding or rigidity. SPINE: No scoliosis or deformity SKIN: No rashes CENTRAL NERVOUS SYSTEM: Alert, oriented 2, tone is normal in all 4 extremities. EXTREMITIES: Left dressing to the harvest site. There is trace peripheral edema. No clubbing, no cyanosis. Peripheral pulses are intact. - Labs CBC & Chem 7: 12/19/20 04:15 12/19/20 04:15 Labs: Abnormal Lab Results - Last 24 Hours (Table) 12/18/20 12/18/20 12/18/20 Range/Units 13:25 14:25 15:10 WBC (3.8-10.6) k/uL RBC (4.30-5.90) m/uL Hgb (13.0-17.5) gm/dL Hct (39.0-53.0) % Plt Count (150-450) k/uL Neutrophils # (1.3-7.7) k/uL Chloride (98-107) mmol/L Carbon Dioxide (22-30) mmol/L BUN (9-20) mg/dL Glucose (74-99) mg/dL POC Glucose (mg/dL) 177 H 172 H 168 H (75-99) mg/dL Calcium (8.4-10.2) mg/dL AST (17-59) U/L ALT (4-49) U/L Total Protein (6.3-8.2) g/dL Albumin (3.5-5.0) g/dL 12/18/20 12/18/20 12/18/20 Range/Units 16:28 17:00 18:08 WBC (3.8-10.6) k/uL RBC (4.30-5.90) m/uL Hgb (13.0-17.5) gm/dL Hct (39.0-53.0) % Plt Count (150-450) k/uL Neutrophils # (1.3-7.7) k/uL Chloride (98-107) mmol/L Carbon Dioxide (22-30) mmol/L BUN (9-20) mg/dL Glucose (74-99) mg/dL POC Glucose (mg/dL) 149 H 134 H 147 H (75-99) mg/dL Calcium (8.4-10.2) mg/dL AST (17-59) U/L ALT (4-49) U/L Total Protein (6.3-8.2) g/dL Albumin (3.5-5.0) g/dL 12/18/20 12/18/20 12/18/20 Range/Units 18:59 22:22 23:17 WBC (3.8-10.6) k/uL RBC (4.30-5.90) m/uL Hgb (13.0-17.5) gm/dL Hct (39.0-53.0) % Plt Count (150-450) k/uL Neutrophils # (1.3-7.7) k/uL Chloride (98-107) mmol/L Carbon Dioxide (22-30) mmol/L BUN (9-20) mg/dL Glucose (74-99) mg/dL POC Glucose (mg/dL) 119 H 147 H 145 H (75-99) mg/dL Calcium (8.4-10.2) mg/dL AST (17-59) U/L ALT (4-49) U/L Total Protein (6.3-8.2) g/dL Albumin (3.5-5.0) g/dL 12/19/20 12/19/20 12/19/20 Range/Units 00:25 01:16 02:08 WBC (3.8-10.6) k/uL RBC (4.30-5.90) m/uL Hgb (13.0-17.5) gm/dL Hct (39.0-53.0) % Plt Count (150-450) k/uL Neutrophils # (1.3-7.7) k/uL Chloride (98-107) mmol/L Carbon Dioxide (22-30) mmol/L BUN (9-20) mg/dL Glucose (74-99) mg/dL POC Glucose (mg/dL) 131 H 115 H 102 H (75-99) mg/dL Calcium (8.4-10.2) mg/dL AST (17-59) U/L ALT (4-49) U/L Total Protein (6.3-8.2) g/dL Albumin (3.5-5.0) g/dL 12/19/20 12/19/20 12/19/20 Range/Units 03:10 04:13 04:15 WBC 16.2 H (3.8-10.6) k/uL RBC 2.86 L (4.30-5.90) m/uL Hgb 8.9 L (13.0-17.5) gm/dL Hct 25.5 L (39.0-53.0) % Plt Count 116 L (150-450) k/uL Neutrophils # 12.7 H (1.3-7.7) k/uL Chloride (98-107) mmol/L Carbon Dioxide (22-30) mmol/L BUN (9-20) mg/dL Glucose (74-99) mg/dL POC Glucose (mg/dL) 115 H 127 H (75-99) mg/dL Calcium (8.4-10.2) mg/dL AST (17-59) U/L ALT (4-49) U/L Total Protein (6.3-8.2) g/dL Albumin (3.5-5.0) g/dL 12/19/20 12/19/20 12/19/20 Range/Units 04:15 06:23 11:33 WBC (3.8-10.6) k/uL RBC (4.30-5.90) m/uL Hgb (13.0-17.5) gm/dL Hct (39.0-53.0) % Plt Count (150-450) k/uL Neutrophils # (1.3-7.7) k/uL Chloride 111 H (98-107) mmol/L Carbon Dioxide 20 L (22-30) mmol/L BUN 25 H (9-20) mg/dL Glucose 119 H (74-99) mg/dL POC Glucose (mg/dL) 130 H 114 H (75-99) mg/dL Calcium 8.0 L (8.4-10.2) mg/dL AST 104 H (17-59) U/L ALT 117 H (4-49) U/L Total Protein 4.8 L (6.3-8.2) g/dL Albumin 2.8 L (3.5-5.0) g/dL Assessment and Plan Assessment: 1 Severe triple-vessel coronary artery disease status post coronary artery bypas s grafting 4. Postoperative day #3. 2 Mechanical ventilator management, expected outcome of surgery, recovered and on room air 3 Previous history of coronary artery disease with PCI to the LAD in 2005 4 History of atrial fibrillation, anticoagulated with warfarin in the outpatient setting 5 Hypertension 6 Hyperlipidemia 7 Diabetes mellitus 8 History of obstructive sleep apnea, CPAP 9 History of pituitary tumor 10 Lifelong nonsmoker. FEV1 value of 91% of predicted Plan: The patient was seen and evaluated by Dr. Vásquez Chest x-ray and labs reviewed Possible chest tubes today Continue bronchodilators, continue incentive spirometer Increase his activity as tolerated We will continue to follow I, the cosigning physician, performed a history & physical examination of the patient. Lungs sounds faint crackles in the posterior bases. Maintaining good O2 saturations in the 90s on room air. I discussed the assessment and plan of care with my nurse practitioner, Alisson Otero. I attest to the above note as dictated by her.
--- NOTE | 2020-12-19 13:46 | P.PN ---
Subjective Progress Note Date: 12/19/20 HISTORY OF PRESENT ILLNESS This is a 80-year-old male patient of Dr. Campos and Dr. Mullins with past medical history of chronic persistent atrial fibrillation, diabetes mellitus type 2, hypertension, hyperlipidemia, history of pituitary tumor resection, obstructive sleep apnea on BiPAP, gastroesophageal reflux disease, benign prostatic hypertrophy. He should also has history of coronary artery disease status post PCI to the LAD in 2005, heart catheterization in October 2020 found severe triple-vessel disease, subsequently admitted to the hospital for elective coronary artery bypass grafting 12/16 MORAN to LAD, left radial artery from the aorta to the first obtuse marginal artery, reverse saphenous vein graft from the aorta to the second diagonal artery, reverse saphenous vein graft from the aorta to the posterior descending artery, endoscopic harvesting of the left radial artery, endoscopic harvesting of the left greater saphenous vein from ankle to the groin, exclusion of the left atrial appendage. Patient is seen today in the intensive care unit. He remains intubated and on mechanical ventilation but has done well with sedation holiday and is expected to be extubated this morning. Patient's is at the bedside. He is currently on insulin drip at 3 units p er hour. Vent settings are tidal volume 500, FiO2 50 and PEEP of 5. quality assurance monitor final is atrial fibrillation rate controlled. 12/18: Patient has been successfully extubated and is found today sitting in a chair in the intensive care unit. He states his pain is controlled. He denies having any abdominal pain and no diarrhea. He is having good urine output of 35-45 mL per hour. Blood sugars are running between 120 and 150. Patient is on insulin drip and will plan to see transition to Levemir 12 units tonight along with NovoLog scale before meals and at bedtime. Patient is followed by multiple consultants. Patient's and daughter are at bedside. 12/19: Patient had some delirium last night, he is not sleeping silently during the night and drowsy during the day with naps. He is utilizing his CPAP which is been brought from home. Patient is not very motivated to participate with P T. Ensure will be added as he is not eating well. He is complaining of pain in the mid abdomen. No bowel movement since admission. Patient will have the clock suppository today. He has been transitioned to Levemir and NovoLog scale and blood sugars have been stable running 115-130. He has been ordered for a dose of IV Lasix today. Pacer wires have been removed mediastinal and left chest tube in place. Blood work reveals WBC 16.2, hemoglobin 8.9, platelet count 116. Sodium 137, potassium 4.2, chloride 111, CO2 20, BUN 25 creatinine 0.84. Total bilirubin 1.3, AST 104, ALT 117, alkaline phosphatase 54. Patient has been afebrile, heart rate in the 70s and 80s, blood pressure 115/51, pulse ox 95% on room air. quality assurance monitor final is a sinus rhythm. REVIEW OF SYSTEMS Constitutional: No fever, no chills, no night sweats. No weight change. No weakness, reports fatigue reports lethargy. Reports daytime sleepiness. EENT: No headache. No blurred vision or double vision, no loss of vision. No loss of Hearing, no ringing in the ears, no dizziness. No nasal drainage or congestion. No epistaxis. No sore throat. Lungs: No shortness of breath, cough, no sputum production. No wheezing. Cardiovascular: No chest pain, no lower extremity edema. No palpitations. No paroxysmal nocturnal dyspnea. No orthopnea. No lightheadedness or dizziness. No syncopal episodes. Abdominal: No abdominal pain. No nausea, vomiting. No diarrhea. No constipation. No bloody or tarry stools.. No loss of appetite. Genitourinary: No dysuria, increased frequency, urgency. No urinary retention. Musculoskeletal: No myalgias. No muscle weakness, no gait dysfunction, no frequent falls. No back pain. No neck pain. Integumentary: No wounds, no lesions. No rash or pruritus. No unusual bruising. No change in hair or nails. Neurologic: No aphasia. No facial droop. Reports during the night change in mentation. No head injury. No headache. No paralysis. No paresthesia. Psychiatric: No depression. No anxiety. Endocrine: No abnormal blood sugars. PHYSICAL EXAMINATION Gen: This is a 80-year-old male. He is resting in a chair in the intensive care unit. Patient is slumped and appears to be sleeping but awakens easily and answers questions appropriately. Family members are at bedside. Patient does not appear to be in any acute distress. HEENT: Head is atraumatic, normocephalic. Pupils equal, round. Sclerae is ani cteric. Right IJ Cordis NECK: Supple. No JVD. No lymphadenopathy. No thyromegaly. LUNGS: Diminished bilaterally. No wheezes or rhonchi. No intercostal retractions. Chest tubes in place. HEART: Irregular rate and rhythm. No murmur. quality assurance monitor final sinus rhythm. ABDOMEN: Soft. Bowel sounds are present. No masses. No tenderness. EXTREMITIES: 1+ pedal edema. No calf tenderness. NEUROLOGICAL: Patient is awakens easily, answers questions appropriately, generalized weakness. No neuro deficits noted. ASSESSMENT AND PLAN 1. Coronary artery disease status post 4 vessel CABG 12/16. Continue current management per cardio thoracic surgery Diplopia. Continue aspirin 81 mg daily, Lipitor 40 mg daily, Lopressor 25 mg twice daily 2. Chronic persistent atrial fibrillation. Continue Lopressor. 3. Diabetes mellitus type 2. Insulin drip will be transitioned to Levemir 12 units tonight with NovoLog scale before meals and at bedtime 4. Hypertension. Continue Lopressor 12.5 mg daily. 5. Hyperlipidemia. 6. History of pituitary gland resection. 7. Obstructive sleep apnea on BiPAP. 8. Gastroesophageal reflux disease. 9. Benign prostatic hypertrophy. Barrow catheter for now. Monitor for urinary retention. 10. Acute delirium possibly related to ICU setting, medication effect, lack of sleep. Continue to reorient. DISCHARGE PLAN Home with [facility]. Impression and plan of care have been directed as dictated by the signing physician. Erica Alfredo nurse practitioner acting as scribe for signing physician. Objective - Vital Signs Vital signs: Vital Signs Temp 97.9 F 12/19/20 08:00 Pulse 82 12/19/20 13:00 Resp 31 H 12/19/20 13:00 BP 128/56 12/19/20 13:00 Pulse Ox 98 12/19/20 13:00 Intake & Output 12/18/20 12/19/20 12/19/20 18:59 06:59 18:59 Intake Total 637.268 744.228 290 Output Total 788 670 630 Balance -150.732 74.228 -340 Weight 91.3 kg Intake: IV 472 312 170 .9NS Cardiac Output 90 0.9NS Pressure Bags 102 72 30 Sodium Chloride 0.9% 1, 280 240 140 000 ml @ 20 mls/hr IV . Q24H BRENDA Rx#:[id number] Intake, IV Titration 115.268 32.228 Amount Insulin Regular 100 unit 54.716 32.228 In Sodium Chloride 0.9% 100 ml @ Per Protocol IV .Q0M BRENDA Rx#:[id number] Milrinone-D5w Pmx 20 mg 60.552 In Dextrose/Water 1 100ml .bag @ 0.2 MCG/KG/MIN 5. 19 mls/hr IV .[id number] BRENDA Rx#:[id number] Oral 50 400 120 Output: Chest Tube Drainage 360 250 10 Left Pleural Chest Tube 260 180 10 Mediastinal Chest Tube X 100 70 0 2 Urine 428 420 620 Other: Voiding Method Indwelling Catheter Indwelling Catheter Indwelling Catheter ABP, PAP, CO, CI - Last Documented Arterial Blood Pressure 115/51 Pulmonary Artery Pressure 32/17 Cardiac Output 4.4 Cardiac Index 2.2 - Labs CBC & Chem 7: 12/19/20 04:15 12/19/20 04:15 Labs: Abnormal Lab Results - Last 24 Hours (Table) 12/18/20 12/18/20 12/18/20 Range/Units 14:25 15:10 16:28 WBC (3.8-10.6) k/uL RBC (4.30-5.90) m/uL Hgb (13.0-17.5) gm/dL Hct (39.0-53.0) % Plt Count (150-450) k/uL Neutrophils # (1.3-7.7) k/uL Chloride (98-107) mmol/L Carbon Dioxide (22-30) mmol/L BUN (9-20) mg/dL Glucose (74-99) mg/dL POC Glucose (mg/dL) 172 H 168 H 149 H (75-99) mg/dL Calcium (8.4-10.2) mg/dL AST (17-59) U/L ALT (4-49) U/L Total Protein (6.3-8.2) g/dL Albumin (3.5-5.0) g/dL 12/18/20 12/18/20 12/18/20 Range/Units 17:00 18:08 18:59 WBC (3.8-10.6) k/uL RBC (4.30-5.90) m/uL Hgb (13.0-17.5) gm/dL Hct (39.0-53.0) % Plt Count (150-450) k/uL Neutrophils # (1.3-7.7) k/uL Chloride (98-107) mmol/L Carbon Dioxide (22-30) mmol/L BUN (9-20) mg/dL Glucose (74-99) mg/dL POC Glucose (mg/dL) 134 H 147 H 119 H (75-99) mg/dL Calcium (8.4-10.2) mg/dL AST (17-59) U/L ALT (4-49) U/L Total Protein (6.3-8.2) g/dL Albumin (3.5-5.0) g/dL 12/18/20 12/18/20 12/19/20 Range/Units 22:22 23:17 00:25 WBC (3.8-10.6) k/uL RBC (4.30-5.90) m/uL Hgb (13.0-17.5) gm/dL Hct (39.0-53.0) % Plt Count (150-450) k/uL Neutrophils # (1.3-7.7) k/uL Chloride (98-107) mmol/L Carbon Dioxide (22-30) mmol/L BUN (9-20) mg/dL Glucose (74-99) mg/dL POC Glucose (mg/dL) 147 H 145 H 131 H (75-99) mg/dL Calcium (8.4-10.2) mg/dL AST (17-59) U/L ALT (4-49) U/L Total Protein (6.3-8.2) g/dL Albumin (3.5-5.0) g/dL 12/19/20 12/19/20 12/19/20 Range/Units 01:16 02:08 03:10 WBC (3.8-10.6) k/uL RBC (4.30-5.90) m/uL Hgb (13.0-17.5) gm/dL Hct (39.0-53.0) % Plt Count (150-450) k/uL Neutrophils # (1.3-7.7) k/uL Chloride (98-107) mmol/L Carbon Dioxide (22-30) mmol/L BUN (9-20) mg/dL Glucose (74-99) mg/dL POC Glucose (mg/dL) 115 H 102 H 115 H (75-99) mg/dL Calcium (8.4-10.2) mg/dL AST (17-59) U/L ALT (4-49) U/L Total Protein (6.3-8.2) g/dL Albumin (3.5-5.0) g/dL 12/19/20 12/19/20 12/19/20 Range/Units 04:13 04:15 04:15 WBC 16.2 H (3.8-10.6) k/uL RBC 2.86 L (4.30-5.90) m/uL Hgb 8.9 L (13.0-17.5) gm/dL Hct 25.5 L (39.0-53.0) % Plt Count 116 L (150-450) k/uL Neutrophils # 12.7 H (1.3-7.7) k/uL Chloride 111 H (98-107) mmol/L Carbon Dioxide 20 L (22-30) mmol/L BUN 25 H (9-20) mg/dL Glucose 119 H (74-99) mg/dL POC Glucose (mg/dL) 127 H (75-99) mg/dL Calcium 8.0 L (8.4-10.2) mg/dL AST 104 H (17-59) U/L ALT 117 H (4-49) U/L Total Protein 4.8 L (6.3-8.2) g/dL Albumin 2.8 L (3.5-5.0) g/dL 12/19/20 12/19/20 Range/Units 06:23 11:33 WBC (3.8-10.6) k/uL RBC (4.30-5.90) m/uL Hgb (13.0-17.5) gm/dL Hct (39.0-53.0) % Plt Count (150-450) k/uL Neutrophils # (1.3-7.7) k/uL Chloride (98-107) mmol/L Carbon Dioxide (22-30) mmol/L BUN (9-20) mg/dL Glucose (74-99) mg/dL POC Glucose (mg/dL) 130 H 114 H (75-99) mg/dL Calcium (8.4-10.2) mg/dL AST (17-59) U/L ALT (4-49) U/L Total Protein (6.3-8.2) g/dL Albumin (3.5-5.0) g/dL
[2020-12-19 16:57] LABS: Glucose,Whole Blood 148 mg/dL (75-99)
[2020-12-19 20:26] LABS: Glucose,Whole Blood 223 mg/dL (75-99)
[2020-12-19] MEDS: SENNOSIDES-DOCUSATE SODIUM 1 EACH TAB PO SCH (21:39)
[2020-12-19] MEDS: MONTELUKAST 10 MG TAB PO SCH (21:39)
[2020-12-19] MEDS: LATANOPROST 0.005% OPHTH DROPS 2.5 ML BTL BOTH EYES SCH (21:40)
[2020-12-19] MEDS: INSULIN DETEMIR (LEVEMIR) 100 UNIT/ML SYR SQ SCH (21:40)
[2020-12-20] MEDS: DILTIAZEM ORAL 30 MG TAB PO SCH (02:53)
[2020-12-20] MEDS: HEPARIN SODIUM,PORCINE/PF 5,000 UNIT/0.5 ML SYRINGE SQ SCH (02:53)
--- NOTE | 2020-12-20 07:23 | XR ---
EXAMINATION TYPE: XR chest 1V portable DATE OF EXAM: 12/20/2020 COMPARISON: Chest x-ray 12/19/2020 HISTORY: Postop cardiac surgery TECHNIQUE: Single frontal view of the chest is obtained. FINDINGS: Right jugular central venous sheath, post median sternotomy change with left atrial append age clip placement again noted. Lung volumes are low and the patient is rotated. There is no evident pneumothorax. Patchy bibasilar density persists, there is interval obscured appearance to the hemidia phragms. There are overlying artifacts. Cardiac mediastinal silhouette is likely stable but partially obscured. IMPRESSION: Expiratory rotated exam. Possible basilar atelectasis versus pneumonia or edema and asso ciated effusions. Follow-up recommended.
[2020-12-20 07:50] LABS: ALT 99 U/L (4-49); AST 58 U/L (17-59); African American GFR (CKD) >90 (>60 ml/min/1.73 sqM); Alkaline Phosphatase 68 U/L (38-126); Anion Gap 8 mmol/L; Blood Urea Nitrogen 34 mg/dL (9-20); Calcium 8.2 mg/dL (8.4-10.2); Carbon Dioxide 23 mmol/L (22-30); Chloride 108 mmol/L (98-107); Glucose 147 mg/dL (74-99); Magnesium 2.2 mg/dL (1.6-2.3); Non-African American GFR(CKD) 85 (>60 ml/min/1.73 sqM); Sodium 139 mmol/L (137-145); Total Bilirubin 1.4 mg/dL (0.2-1.3)
[2020-12-20] MEDS: IPRATROPIUM-ALBUTEROL 3 ML NEB INHALATION SCH ×4 (08:35→21:41)
[2020-12-20] MEDS: ATORVASTATIN 40 MG TAB PO SCH (08:52)
[2020-12-20] MEDS: ASCORBIC ACID 500 MG TAB PO SCH (08:52)
[2020-12-20] MEDS: ASPIRIN 81 MG PO SCH (08:52)
[2020-12-20] MEDS: APIXABAN 5 MG TAB PO SCH ×2 (08:52→22:27)
[2020-12-20] MEDS: CHOLECALCIFEROL 25 MCG (1000 IU) TABLET PO SCH (08:52)
[2020-12-20] MEDS: PANTOPRAZOLE 40 MG/10 ML VIAL IVP SCH ×2 (08:54→22:28)
[2020-12-20] MEDS: METOPROLOL TARTRATE 50 MG TAB PO SCH ×2 (08:54→22:27)
[2020-12-20] MEDS: TAMSULOSIN 0.4 MG CAP.ER.24H PO SCH (08:55)
[2020-12-20] MEDS: DILTIAZEM CD 120 MG CAP.ER.24H PO SCH (08:56)
[2020-12-20 09:00] LABS: Glucose,Whole Blood 146 mg/dL (75-99)
[2020-12-20] MEDS: INSULIN ASPART (NovoLOG) 100 UNIT/ML VIAL SQ SCH ×4 (09:28→22:28)
--- NOTE | 2020-12-20 09:40 | P.PN ---
Subjective Progress Note Date: 12/20/20 Principal diagnosis: Triple-vessel coronary artery disease. Past medical history significant for coronary artery disease with PCI to the LAD in 2006, chronic atrial fibrillation on Coumadin for anticoagulation, preserved left ventricular function, hypertension, hyperlipidemia, diet controlled diabetes mellitus, obstructive sleep apnea on home CPAP use, previous pituitary tumor, lifetime nonsmoker smoker, daily wine consumption, and family history of premature coronary artery disease with father diagnosed before the age of 55. POD #4 quadruple coronary artery bypass grafting using the left internal mammary artery to the left anterior descending coronary artery, left radial artery from the aorta to the first obtuse marginal coronary artery, a reverse greater saphenous vein graft from the aorta to the second diagonal coronary artery, a reverse greater saphenous vein graft from the aorta to the posterior descending coronary artery, endoscopic harvesting of the left radial artery, endoscopic harvesting of the left greater saphenous vein from ankle to the groin, exclusion of the left atrial appendage using a 40 mm AtriClip, exploratory aortotomy, intraoperative transesophageal echocardiogram and epi-aortic scanning, intraoperative graft flow measurements using the [employer] system. Postoperative acute blood loss anemia and thrombocytopenia, expected given hemodilution and cardiopulmonary bypass pump as well as chronic Coumadin use. The patient was seen in follow-up today 12/20/2020 at his bedside in the intensive care unit. Currently sitting up to the bedside chair, is awake, alert and oriented 3 and is in no acute distress. He denies any complaints of shortness of breath or surgical type pain at this time. He reports his pain is well controlled on his current pain medication regimen. Oxygen saturation are 97% on room air and he is achieving 1000 mL on his incentive spirometry with encouragement. The patient reports that he feels tired and that he doesn't have much stamina. The patient did not have any urine output in the last 8 hours with a bladder scan completed twice throughout the night with 125 mL noted on the bladder scan. This morning he was sitting up on the bedside mode and urinated although was unable to measure as the urine went on the floor. Atrial and ventricular epicardial pacemaker wires and chest tubes were removed yesterday without incident. Bedside telemetry showing atrial fibrillation with bundle branch block heart rate 93 BPM. No new concerns. Objective - Vital Signs Vital signs: Vital Signs Temp 97.9 F 12/20/20 04:00 Pulse 93 12/20/20 07:00 Resp 17 12/20/20 07:00 BP 105/70 12/20/20 07:00 Pulse Ox 98 12/20/20 07:00 Intake & Output 12/19/20 12/20/20 12/20/20 18:59 06:59 18:59 Intake Total 630 240 20 Output Total 675 0 0 Balance -45 240 20 Intake: IV 270 240 20 0.9NS Pressure Bags 30 Sodium Chloride 0.9% 1, 240 240 20 000 ml @ 20 mls/hr IV . Q24H BRENDA Rx#:[id number] Oral 360 Output: Chest Tube Drainage 10 Left Pleural Chest Tube 10 Mediastinal Chest Tube X 0 2 Urine 665 0 0 Other: Voiding Method Indwelling Catheter # Voids 0 ABP, PAP, CO, CI - Last Documented Arterial Blood Pressure 115/51 Pulmonary Artery Pressure 32/17 Cardiac Output 4.4 Cardiac Index 2.2 - Exam CONSTITUTIONAL: Sitting up to the bedside chair in the intensive care unit, appears comfortable, cooperative, no apparent acute distress. HEENT: Neck is supple, no JVD, no lymphadenopathy. RESPIRATORY: Lungs sounds essentially clear throughout, diminished to his bilateral bases with few scattered crackles to his bilateral bases. Respirations are symmetrical and nonlabored. Currently on room air with oxygen saturations 97%. Able to achieve 1000 mL on his incentive spirometry. Strong cough. CARDIOVASCULAR: Irregular rhythm and controlled rate. S1 and S2 present, negative for S3, or gallop. Positive systolic murmur heard best to his left st ernal border 2/6. Sternum is stable. Palpable peripheral pulses bilaterally, +1 edema to his bilateral lower extremities. No calf pain or tenderness noted. Heart hugger in place with patient demonstrating appropriate use. Knee-high HA hose and sequential compression devices in place to his bilateral lower extremities. GASTROINTESTINAL: Abdomen soft, nontender, nondistended. Hypoactive bowel sounds present 4 quadrants. Tolerating diet. Passing flatus. No guarding or rigidity. GENITOURINARY: Continues to void. INTEGUMENTARY: Skin is warm and dry with no evidence of clubbing or cyanosis. Midline sternal incision clean dry and well approximated, covered with dry intact dressing. Left lower extremity EVH sites well approximated without redness or drainage. Left arm radial artery harvest sites clean, dry and approximated. No drainage or redness is present. NEUROLOGIC: Cranial nerves II through XII intact. No focal deficits. MUSKULOSKELETAL: Able to move all extremities, strength equal bilaterally, generalized weakness. PSYCHIATRIC: Alert and oriented to person place and time, appropriate affect, intact judgment and insight. Flat affect. - Allied health notes Allied health notes reviewed: nursing - Labs CBC & Chem 7: 12/19/20 04:15 12/20/20 06:41 Labs: Abnormal Lab Results - Last 24 Hours (Table) 12/19/20 12/19/20 12/19/20 Range/Units 11:33 16:55 20:24 Chloride (98-107) mmol/L BUN (9-20) mg/dL Glucose (74-99) mg/dL POC Glucose (mg/dL) 114 H 148 H 223 H (75-99) mg/dL Calcium (8.4-10.2) mg/dL Total Bilirubin (0.2-1.3) mg/dL ALT (4-49) U/L Total Protein (6.3-8.2) g/dL Albumin (3.5-5.0) g/dL 12/20/20 12/20/20 Range/Units 06:41 08:58 Chloride 108 H (98-107) mmol/L BUN 34 H (9-20) mg/dL Glucose 147 H (74-99) mg/dL POC Glucose (mg/dL) 146 H (75-99) mg/dL Calcium 8.2 L (8.4-10.2) mg/dL Total Bilirubin 1.4 H (0.2-1.3) mg/dL ALT 99 H (4-49) U/L Total Protein 5.0 L (6.3-8.2) g/dL Albumin 3.0 L (3.5-5.0) g/dL - Imaging and Cardiology Chest x-ray: report reviewed, image reviewed Assessment and Plan Assessment: 1. Triple-vessel coronary artery disease, status post four-vessel CABG 2. Preserved left ventricular function 3. History of coronary artery disease with PCI to the LAD in 2005 4. Chronic atrial fibrillation on Coumadin for anticoagulation, status post exclusion of the left atrial appendage 5. History of hypertension 6. Hyperlipidemia, treated, cholesterol 123, LDL 153, triglycerides 181 7. Diet controlled diabetes mellitus, preoperative hemoglobin A1c 6.2% 8. Obstructive sleep apnea on home CPAP use 9. Previous pituitary tumor 10. Lifetime nonsmoker, preoperative FEV1 91% of predicted 11. Daily wine consumption 13. Family history of premature coronary artery disease with father diagnosed b efore the age of 55. 14. Postoperative acute blood loss anemia and thrombocytopenia, expected Plan: 1. Continue low-dose aspirin, statin, and beta. Will increase metoprolol tartrate 50 mg by mouth twice a day. Continue lisinopril for afterload reduction. 2. Continue cardizem for radial artery spasm prophylaxis, afib heart rate control. We will change his Cardizem to Cardizem CD 120 mg by mouth daily. 3. Bronchodilators per pulmonology management. Encourage incentive spirometer use 10 times every hour while awake. 4. Increase activity, ambulate as tolerated, PT/OT/cardiac rehab following. 5. Will monitor daily labs and chest x-rays. Electrolyte replacement per protocol. No diuresis today. 6. GI/DVT prophylaxis. 7. Insulin management per primary care service. The patient is a diet- controlled diabetic, preoperative hemoglobin A1c 6.2%, does need tight blood sugar control to promote sternal union and prevent infection. 8. Pain control with current medication regimen. Avoid narcotics. 9. Flomax 0.4 mg by mouth daily initiated for urinary retention. Continue to bladder scan and straight cath for greater than 300 mL residual. 10. Continue to record strict and accurate I's and O's. Continue daily weights. 11. Start Eliquis 5 mg by mouth twice a day for anticoagulation. Discontinue Plavix and heparin subcutaneous. 12. First postoperative day shower today. More recommendations to follow based on patient's clinical course 13. Dulcolax suppository 1 now. The patient's bowels have not moved since surgery. 14. More recommendations to follow based on patient's clinical course. Time with Patient: Greater than 30
[2020-12-20 10:17] LABS: Basophils # (A) 0.1 k/uL (0-0.2); Basophils % (A) 1 %; Eosinophils % (A) 0 %; HCT 27.2 % (39.0-53.0); HGB 9.6 gm/dL (13.0-17.5); Hypochromasia Marked; Lymphocytes % (A) 13 %; MCH 36.4 pg (25.0-35.0); MCHC 35.2 g/dL (31.0-37.0); MCV 103.4 fL (80.0-100.0); Macrocytosis Slight; Mean Platelet Volume 8.6; Monocytes # (A) 2.1 k/uL (0-1.0); Monocytes % (A) 13 %; Neutrophils # (A) 11.6 k/uL (1.3-7.7); Neutrophils % (A) 71 %; Platelet Count 171 k/uL (150-450); RBC 2.63 m/uL (4.30-5.90); RDW 14.2 % (11.5-15.5); WBC 16.3 k/uL (3.8-10.6)
--- NOTE | 2020-12-20 10:50 | P.PN ---
Subjective Progress Note Date: 12/20/20 HISTORY OF PRESENT ILLNESS This is a 80-year-old male patient of Dr. Campos and Dr. Mullins with past medical history of chronic persistent atrial fibrillation, diabetes mellitus type 2, hypertension, hyperlipidemia, history of pituitary tumor resection, obstructive sleep apnea on BiPAP, gastroesophageal reflux disease, benign prostatic hypertrophy. He should also has history of coronary artery disease status post PCI to the LAD in 2005, heart catheterization in October 2020 found severe triple-vessel disease, subsequently admitted to the hospital for elective coronary artery bypass grafting 12/16 MORAN to LAD, left radial artery from the aorta to the first obtuse marginal artery, reverse saphenous vein graft from the aorta to the second diagonal artery, reverse saphenous vein graft from the aorta to the posterior descending artery, endoscopic harvesting of the left radial artery, endoscopic harvesting of the left greater saphenous vein from ankle to the groin, exclusion of the left atrial appendage. Patient is seen today in the intensive care unit. He remains intubated and on mechanical ventilation but has done well with sedation holiday and is expected to be extubated this morning. Patient's is at the bedside. He is currently on insulin drip at 3 units pe r hour. Vent settings are tidal volume 500, FiO2 50 and PEEP of 5. media monitor is atrial fibrillation rate controlled. 12/18: Patient has been successfully extubated and is found today sitting in a chair in the intensive care unit. He states his pain is controlled. He denies having any abdominal pain and no diarrhea. He is having good urine output of 35-45 mL per hour. Blood sugars are running between 120 and 150. Patient is on insulin drip and will plan to see transition to Levemir 12 units tonight along with NovoLog scale before meals and at bedtime. Patient is followed by multiple consultants. Patient's and daughter are at bedside. 12/19: Patient had some delirium last night, he is not sleeping silently during the night and drowsy during the day with naps. He is utilizing his CPAP which is been brought from home. Patient is not very motivated to participate with PT . Ensure will be added as he is not eating well. He is complaining of pain in the mid abdomen. No bowel movement since admission. Patient will have the clock suppository today. He has been transitioned to Levemir and NovoLog scale and blood sugars have been stable running 115-130. He has been ordered for a dose of IV Lasix today. Pacer wires have been removed mediastinal and left chest tube in place. Blood work reveals WBC 16.2, hemoglobin 8.9, platelet count 116. Sodium 137, potassium 4.2, chloride 111, CO2 20, BUN 25 creatinine 0.84. Total bilirubin 1.3, AST 104, ALT 117, alkaline phosphatase 54. Patient has been afebrile, heart rate in the 70s and 80s, blood pressure 115/51, pulse ox 95% on room air. media monitor is a sinus rhythm. 12/20: Patient is found sitting up in the chair in minimal distress, complaining of shortness of breath. Patient remains in the ICU. He was up ambulating within the room. Patient has more motivation compared to yesterday. Patient has no other complaints or concerns. His Lasix was held. However he continues to have edema to lower extremities. Jade BC 16.3, hemoglobin 9.6, platelet count 171, sodium 139, potassium 4.0, BUN 34, creatinine 0.82. Patient remained afebrile, front desk monitor shows sinus rhythm with a heart rate of 72, blood pressure 129/72 respirations 11, pulse ox 97% on room air. REVIEW OF SYSTEMS Constitutional: No fever, no chills, no night sweats. No weight change. No weakness, reports fatigue reports lethargy. Reports daytime sleepiness. EENT: No headache. No blurred vision or double vision, no loss of vision. No loss of Hearing, no ringing in the ears, no dizziness. No nasal drainage or congestion. No epistaxis. No sore throat. Lungs: No shortness of breath, cough, no sputum production. No wheezing. Cardiovascular: No chest pain, no lower extremity edema. No palpitations. No paroxysmal nocturnal dyspnea. No orthopnea. No lightheadedness or dizziness. No syncopal episodes. Abdominal: No abdominal pain. No nausea, vomiting. No diarrhea. No constipation. No bloody or tarry stools.. No loss of appetite. Genitourinary: No dysuria, increased frequency, urgency. No urinary retention. Musculoskeletal: No myalgias. No muscle weakness, no gait dysfunction, no frequent falls. No back pain. No neck pain. Integumentary: No wounds, no lesions. No rash or pruritus. No unusual bruising. No change in hair or nails. Neurologic: No aphasia. No facial droop. Reports during the night change in mentation. No head injury. No headache. No paralysis. No paresthesia. Psychiatric: No depression. No anxiety. Endocrine: No abnormal blood sugars. PHYSICAL EXAMINATION Gen: This is a 80-year-old male. He is resting in a chair in the intensive care unit. Patient is slumped and appears to be sleeping but awakens easily and answers questions appropriately. Family members are at bedside. Patient does not appear to be in any acute distress. HEENT: Head is atraumatic, normocephalic. Pupils equal, round. Sclerae is anicteric. Right IJ Cordis NECK: Supple. No JVD. No lymphadenopathy. No thyromegaly. LUNGS: Diminished bilaterally. No wheezes or rhonchi. No intercostal retractions. Chest tubes in place. HEART: Irregular rate and rhythm. No murmur. media monitor sinus rhythm. ABDOMEN: Soft. Bowel sounds are present. No masses. No tenderness. EXTREMITIES: 1+ pedal edema. No calf tenderness. NEUROLOGICAL: Patient is awakens easily, answers questions appropriately, generalized weakness. No neuro deficits noted. ASSESSMENT AND PLAN 1. Coronary artery disease status post 4 vessel CABG 12/16. Continue current management per cardio thoracic surgery Diplopia. Continue aspirin 81 mg daily, Lipitor 40 mg daily, Lopressor 25 mg twice daily 2. Chronic persistent atrial fibrillation. Continue Lopressor. 3. Diabetes mellitus type 2. Insulin drip will be transitioned to Levemir 12 units tonight with NovoLog scale before meals and at bedtime 4. Hypertension. Continue Lopressor 12.5 mg daily. 5. Hyperlipidemia. 6. History of pituitary gland resection. 7. Obstructive sleep apnea on BiPAP. 8. Gastroesophageal reflux disease. 9. Benign prostatic hypertrophy. Barrow catheter for now. Monitor for urinary retention. 10. Acute delirium possibly related to ICU setting, medication effect, lack of sleep. Continue to reorient. DISCHARGE PLAN Home with [facility]. Impression and plan of care have been directed as dictated by the signing physician. Skye Smith nurse practitioner acting as scribe for signing physician. Objective - Vital Signs Vital signs: Vital Signs Temp 97.9 F 12/20/20 09:00 Pulse 72 12/20/20 10:00 Resp 11 L 12/20/20 10:00 BP 129/72 12/20/20 10:00 Pulse Ox 97 12/20/20 10:00 Intake & Output 12/19/20 12/20/20 12/20/20 18:59 06:59 18:59 Intake Total 630 240 200 Output Total 675 0 0 Balance -45 240 200 Intake: IV 270 240 80 0.9NS Pressure Bags 30 Sodium Chloride 0.9% 1, 240 240 80 000 ml @ 20 mls/hr IV . Q24H [facility] Rx#:[id number] Oral 360 120 Output: Chest Tube Drainage 10 Left Pleural Chest Tube 10 Mediastinal Chest Tube X 0 2 Urine 665 0 0 Other: Voiding Method Indwelling Catheter Bedside Commode # Voids 0 1 ABP, PAP, CO, CI - Last Documented Arterial Blood Pressure 115/51 Pulmonary Artery Pressure 32/17 Cardiac Output 4.4 Cardiac Index 2.2 - Labs CBC & Chem 7: 12/20/20 09:59 12/20/20 06:41 Labs: Abnormal Lab Results - Last 24 Hours (Table) 12/19/20 12/19/20 12/19/20 Range/Units 11:33 16:55 20:24 WBC (3.8-10.6) k/uL RBC (4.30-5.90) m/uL Hgb (13.0-17.5) gm/dL Hct (39.0-53.0) % MCV (80.0-100.0) fL MCH (25.0-35.0) pg Chloride (98-107) mmol/L BUN (9-20) mg/dL Glucose (74-99) mg/dL POC Glucose (mg/dL) 114 H 148 H 223 H (75-99) mg/dL Calcium (8.4-10.2) mg/dL Total Bilirubin (0.2-1.3) mg/dL ALT (4-49) U/L Total Protein (6.3-8.2) g/dL Albumin (3.5-5.0) g/dL 12/20/20 12/20/20 12/20/20 Range/Units 06:41 08:58 09:59 WBC 16.3 H (3.8-10.6) k/uL RBC 2.63 L (4.30-5.90) m/uL Hgb 9.6 L (13.0-17.5) gm/dL Hct 27.2 L (39.0-53.0) % MCV 103.4 H D (80.0-100.0) fL MCH 36.4 H (25.0-35.0) pg Chloride 108 H (98-107) mmol/L BUN 34 H (9-20) mg/dL Glucose 147 H (74-99) mg/dL POC Glucose (mg/dL) 146 H (75-99) mg/dL Calcium 8.2 L (8.4-10.2) mg/dL Total Bilirubin 1.4 H (0.2-1.3) mg/dL ALT 99 H (4-49) U/L Total Protein 5.0 L (6.3-8.2) g/dL Albumin 3.0 L (3.5-5.0) g/dL
[2020-12-20 11:28] LABS: Glucose,Whole Blood 183 mg/dL (75-99)
[2020-12-20] MEDS: lisinopriL 5 MG TAB PO SCH (13:19)
--- NOTE | 2020-12-20 13:28 | P.PN ---
Subjective Progress Note Date: 12/20/20 Principal diagnosis: Coronary artery disease, status post CABG postoperative day #4 This is a 80-year-old male patient with a history of atrial fibrillation, hyperlipidemia, hypertension, diabetes mellitus. Lifelong nonsmoker. who was found to have severe triple-vessel coronary artery disease with a totally occluded mid LAD and good collaterals and normal ejection fraction. He had been seen and evaluated by Dr. Edmond who recommended coronary artery bypass grafting. He presented here yesterday for elective surgery. He had undergone quadruple coronary artery bypass grafting utilizing a MORAN to the LAD, left radial artery to the first obtuse marginal artery, reverse saphenous vein graft to the second diagonal artery and posterior descending artery. He remains intu bated and on the mechanical ventilator this morning. Current settings are assist-control mode at a rate of 12, tidal volume 500, FiO2 50% and a PEEP of 5. Morning blood gases revealed a P O2 of 76, pCO2 39, pH 7.43. He was found to the cardiac output of 3.5. Cardiac index of 1.8. Mediastinal chest tube with 1.3 L output in the past 24 hours. Left chest tube 900 mL output. He has a right internal jugular [place] catheter in place. Right arterial line in place. Left radial harvest site dressing dry and intact. ADOLFO in place. He is currently on a milrinone drip at 0.2 mg/kg/m. Insulin drip at 3 units per hour. Norepinephrine at 0.05 mcg/kg/m. Marcus-Synephrine at 0.8 mcg/kg/m. Propofol at 25 mcg/kg/m. 0.9 normal saline at 50 MLS per hour. He did have episode of atrial fibrillation with rapid ventricular response and received digoxin IV. He also has received albumin. 2 units of fresh frozen plasma. One unit of packed red blood cells. White count 9.3. Hemoglobin 8.6. Platelet count 97,000. INR 1.2. Fibrinogen 216. Sodium 139. Potassium 4.0. Bicarb 25. Creatinine 0.81. Glucose 132. Total protein 4.7. Albumin 3.0. Chest x-ray reveals cardiomegaly and chronic parenchymal changes with a small left pleural effusion and left greater than right bibasilar acute atelectasis. Mediastinal and left chest tubes in place. No pneumothorax seen. The patient is seen today 12/18/2020 in follow-up in intensive care unit. He was successfully extubated yesterday at approximately 12:45 PM. He is awake and alert in no acute distress. He is on 5 L nasal cannula and maintaining O2 saturations in the 90s. Chest x-ray reveals interval extubation. Cardiomegaly and chronic parenchymal changes with small left greater than right bibasilar acute atelectasis. Left-sided chest tube in place without evidence of pneumothorax. Mediastinal tubes in place. Right internal jugular catheter remains in place. Right radial arterial blood glucose. Current AV pacer wires in place. Remains in atrial fibrillation with controlled ventricular response. Cardiac output 4.1. Cardiac index 2.1. PA pressures 29/12. CVP is 6. He remains on milrinone at 0.1 mg/kg per minute. Insulin drip at 3 units an hour. 0.9 normal saline at 30 MLS per hour. He is pulling approximate 500-750 MLS on the incentive spirometer. Currently up in a recliner at the bedside. Heparin for DVT prophylaxis. The patient is seen today 12/19/2020 in follow-up in the intensive care unit. Postoperative day #3. He is currently sitting up in a chair at the bedside. Awake and alert in no acute distress. He was having some periods of confusion. harnessmaker is at the bedside. He is maintaining O2 saturations in the mid 90s on room air. He is off most drips. He is still on insulin at 5 units per hour. 0.9#20 MLS per hour. Mediastinal chest tube has remain in place with 120 ML's house and 60 ML's of the left chest. He is remaining in sinus rhythm. Pacer wires have been removed. Needs increased encouragement regarding use the incentive spirometer. Chest x-ray reveals postoperative changes with small layering pleural effusions and some improvement in the atelectasis at the left base. If he did require 2 units of fresh frozen plasma one unit of red blood cells this admission. White count 16.2. Hemoglobin 8.9. Platelets 116. Sodium 137. Potassium 4.2. Bicarb 20. Creatinine 0.84. AST 104. ALT 114. Heparin for DVT prophylaxis. Reevaluated today on 12/20/2020, patient is now postoperative day #4, sitting at a bedside chair, patient is on room air, does not seem to be in any distress. O2 saturations 97%, improving with incentive spirometry achieving about 1000 mL. Chest x-ray nonetheless showed bibasilar atelectasis. Patient was advised to do more effort and use his incentive spirometry more often. His chest tubes were removed yesterday without incident. Patient is in atrial fibrillation, he is on Eliquis. Hemodynamically stable, not requiring any pressors or any inotropes. WBC count is 16.3 hemoglobin is 9.6. Electrodes are normal renal profile is normal Objective - Vital Signs Vital signs: Vital Signs Temp 98.4 F 12/20/20 12:00 Pulse 86 12/20/20 13:00 Resp 18 12/20/20 13:00 BP 106/74 12/20/20 13:00 Pulse Ox 94 L 12/20/20 13:00 Intake & Output 12/19/20 12/20/20 12/20/20 18:59 06:59 18:59 Intake Total 630 240 360 Output Total 675 0 0 Balance -45 240 360 Intake: IV 270 240 120 0.9NS Pressure Bags 30 Sodium Chloride 0.9% 1, 240 240 120 000 ml @ 20 mls/hr IV . Q24H [facility] Rx#:[id number] Oral 360 240 Output: Chest Tube Drainage 10 Left Pleural Chest Tube 10 Mediastinal Chest Tube X 0 2 Urine 665 0 0 Other: Voiding Method Indwelling Catheter Bedside Commode # Voids 0 1 ABP, PAP, CO, CI - Last Documented Arterial Blood Pressure 115/51 Pulmonary Artery Pressure 32/17 Cardiac Output 4.4 Cardiac Index 2.2 - Exam CONSTITUTIONAL: Revealed 80-year-old white male on room air, sitting at a bedside chair, in no distress. HEENT: PERRLA, EOMI, anicteric, no neck masses, no JVD. RESPIRATORY: Symmetrical chest expansion, diminished breath sounds at the bases no rhonchi or wheezes CARDIOVASCULAR: Irregular irregular rhythm, normal S1 and S2, no S3 gallop. No murmur. GASTROINTESTINAL: Obese soft nontender no megaly no rebound no guarding. INTEGUMENTARY: No clubbing edema or cyanosis, no rashes. NEUROLOGIC: Generally weak, alert oriented 3 mg focal deficit MUSKULOSKELETAL: Generalized weakness otherwise unremarkable. PSYCHIATRIC: Normal mood, flat affect and normal mental status examination. - Labs CBC & Chem 7: 12/20/20 09:59 12/20/20 06:41 Labs: Abnormal Lab Results - Last 24 Hours (Table) 12/19/20 12/19/20 12/20/20 Range/Units 16:55 20:24 06:41 WBC (3.8-10.6) k/uL RBC (4.30-5.90) m/uL Hgb (13.0-17.5) gm/dL Hct (39.0-53.0) % MCV (80.0-100.0) fL MCH (25.0-35.0) pg Chloride 108 H (98-107) mmol/L BUN 34 H (9-20) mg/dL Glucose 147 H (74-99) mg/dL POC Glucose (mg/dL) 148 H 223 H (75-99) mg/dL Calcium 8.2 L (8.4-10.2) mg/dL Total Bilirubin 1.4 H (0.2-1.3) mg/dL ALT 99 H (4-49) U/L Total Protein 5.0 L (6.3-8.2) g/dL Albumin 3.0 L (3.5-5.0) g/dL 12/20/20 12/20/20 12/20/20 Range/Units 08:58 09:59 11:27 WBC 16.3 H (3.8-10.6) k/uL RBC 2.63 L (4.30-5.90) m/uL Hgb 9.6 L (13.0-17.5) gm/dL Hct 27.2 L (39.0-53.0) % MCV 103.4 H D (80.0-100.0) fL MCH 36.4 H (25.0-35.0) pg Chloride (98-107) mmol/L BUN (9-20) mg/dL Glucose (74-99) mg/dL POC Glucose (mg/dL) 146 H 183 H (75-99) mg/dL Calcium (8.4-10.2) mg/dL Total Bilirubin (0.2-1.3) mg/dL ALT (4-49) U/L Total Protein (6.3-8.2) g/dL Albumin (3.5-5.0) g/dL Assessment and Plan Assessment: 1 Severe triple-vessel coronary artery disease status post coronary artery bypass grafting 4. Postoperative day #4 2 postoperative atelectasis, expected 3 Previous history of coronary artery disease with PCI to the LAD in 2005 4 History of atrial fibrillation, anticoagulated with warfarin in the outpatient setting 5 Hypertension 6 Hyperlipidemia 7 Diabetes mellitus 8 History of obstructive sleep apnea, CPAP 9 History of pituitary tumor 10 Lifelong nonsmoker. FEV1 value of 91% of predicted Recommendation: Continue incentive spirometry Chest x-ray was reviewed and discussed the findings with the patient. All labs were reviewed. Continue bronchodilators. Must ambulate Must continue to use incentive spirometry more frequently. Discontinue any unnecessary lines or catheters. We'll continue to follow Time with Patient: Less than 30
[2020-12-20 14:09] LABS: Anisocytosis (M) Present; Poikilocytosis (M) Present; Polychromasia Present
--- NOTE | 2020-12-20 15:54 | P.PN ---
Subjective Patient is doing a lot better than yesterday. He is a lot more alert and awake well and is answering questions He is upset about all the blood draws (not getting enough sleep He has discomfort in the chest On examination his blood pressures 106/74 mmHg pulse rate in the 80s in A. fib irregular Breath sounds are reduced bilaterally Heart sounds are soft Impression Coronary artery disease status post coronary artery bypass grafting Progressing reasonably well Persistent atrial fibrillation, rate controlled, on ELIQUIS Impression Suggest continue aspirin, atorvastatin Continue diltiazem 120 mg daily Continue metoprolol Continue lisinopril Objective - Vital Signs Vital signs: Vital Signs Temp 98.4 F 12/20/20 12:00 Pulse 86 12/20/20 15:38 Resp 23 12/20/20 15:00 BP 119/76 12/20/20 15:00 Pulse Ox 93 L 12/20/20 15:27 Intake & Output 12/19/20 12/20/20 12/20/20 18:59 06:59 18:59 Intake Total 630 240 420 Output Total 675 0 0 Balance -45 240 420 Intake: IV 270 240 180 0.9NS Pressure Bags 30 Sodium Chloride 0.9% 1, 240 240 180 000 ml @ 20 mls/hr IV . Q24H [facility] Rx#:[id number] Oral 360 240 Output: Chest Tube Drainage 10 Left Pleural Chest Tube 10 Mediastinal Chest Tube X 0 2 Urine 665 0 0 Other: Voiding Method Indwelling Catheter Bedside Commode # Voids 0 1 ABP, PAP, CO, CI - Last Documented Arterial Blood Pressure 115/51 Pulmonary Artery Pressure 32/17 Cardiac Output 4.4 Cardiac Index 2.2 - Labs CBC & Chem 7: 12/20/20 09:59 12/20/20 06:41 Labs: Abnormal Lab Results - Last 24 Hours (Table) 12/19/20 12/19/20 12/20/20 Range/Units 16:55 20:24 06:41 WBC (3.8-10.6) k/uL RBC (4.30-5.90) m/uL Hgb (13.0-17.5) gm/dL Hct (39.0-53.0) % MCV (80.0-100.0) fL MCH (25.0-35.0) pg Neutrophils # (1.3-7.7) k/uL Monocytes # (0-1.0) k/uL Chloride 108 H (98-107) mmol/L BUN 34 H (9-20) mg/dL Glucose 147 H (74-99) mg/dL POC Glucose (mg/dL) 148 H 223 H (75-99) mg/dL Calcium 8.2 L (8.4-10.2) mg/dL Total Bilirubin 1.4 H (0.2-1.3) mg/dL ALT 99 H (4-49) U/L Total Protein 5.0 L (6.3-8.2) g/dL Albumin 3.0 L (3.5-5.0) g/dL 12/20/20 12/20/20 12/20/20 Range/Units 08:58 09:59 11:27 WBC 16.3 H (3.8-10.6) k/uL RBC 2.63 L (4.30-5.90) m/uL Hgb 9.6 L (13.0-17.5) gm/dL Hct 27.2 L (39.0-53.0) % MCV 103.4 H D (80.0-100.0) fL MCH 36.4 H (25.0-35.0) pg Neutrophils # 11.6 H (1.3-7.7) k/uL Monocytes # 2.1 H (0-1.0) k/uL Chloride (98-107) mmol/L BUN (9-20) mg/dL Glucose (74-99) mg/dL POC Glucose (mg/dL) 146 H 183 H (75-99) mg/dL Calcium (8.4-10.2) mg/dL Total Bilirubin (0.2-1.3) mg/dL ALT (4-49) U/L Total Protein (6.3-8.2) g/dL Albumin (3.5-5.0) g/dL
[2020-12-20 17:04] LABS: Glucose,Whole Blood 151 mg/dL (75-99)
[2020-12-20 22:18] LABS: Glucose,Whole Blood 150 mg/dL (75-99)
[2020-12-20] MEDS: SENNOSIDES-DOCUSATE SODIUM 1 EACH TAB PO SCH (22:27)
[2020-12-20] MEDS: MONTELUKAST 10 MG TAB PO SCH (22:27)
[2020-12-20] MEDS: INSULIN DETEMIR (LEVEMIR) 100 UNIT/ML SYR SQ SCH (22:28)
[2020-12-20] MEDS: LATANOPROST 0.005% OPHTH DROPS 2.5 ML BTL BOTH EYES SCH (22:29)
[2020-12-21 05:48] LABS: ALT 85 U/L (4-49); AST 45 U/L (17-59); African American GFR (CKD) >90 (>60 ml/min/1.73 sqM); Albumin 3.3 g/dL (3.5-5.0); Alkaline Phosphatase 87 U/L (38-126); Anion Gap 11 mmol/L; Blood Urea Nitrogen 31 mg/dL (9-20); Calcium 8.3 mg/dL (8.4-10.2); Carbon Dioxide 22 mmol/L (22-30); Chloride 105 mmol/L (98-107); Glucose 137 mg/dL (74-99); Non-African American GFR(CKD) 82 (>60 ml/min/1.73 sqM); Potassium 3.6 mmol/L (3.5-5.1); Sodium 138 mmol/L (137-145); Total Bilirubin 1.7 mg/dL (0.2-1.3); Total Protein 5.5 g/dL (6.3-8.2)
[2020-12-21 06:10] LABS: Basophils # (A) 0.1 k/uL (0-0.2); Basophils % (A) 0 %; Eosinophils # (A) 0.1 k/uL (0-0.7); Eosinophils % (A) 1 %; HCT 27.9 % (39.0-53.0); HGB 9.3 gm/dL (13.0-17.5); Lymphocytes # (A) 2.5 k/uL (1.0-4.8); Lymphocytes % (A) 18 %; MCH 30.6 pg (25.0-35.0); MCHC 33.3 g/dL (31.0-37.0); Mean Platelet Volume 8.4; Monocytes % (A) 7 %; Neutrophils % (A) 72 %; Platelet Count 212 k/uL (150-450); Poikilocytosis Slight; RBC 3.03 m/uL (4.30-5.90); RDW 15.4 % (11.5-15.5); WBC 13.9 k/uL (3.8-10.6)
--- NOTE | 2020-12-21 07:28 | XR ---
EXAMINATION TYPE: XR chest 1V portable DATE OF EXAM: 12/21/2020 COMPARISON: Chest x-ray 12/20/2020 HISTORY: Postop coronary artery bypass graft TECHNIQUE: Single frontal view of the chest is obtained. FINDINGS: Patient is post median sternotomy and left atrial appendage clip placement. There are over lying artifacts. There is no pneumothorax or sizable pleural effusion. Bibasilar density persists. Ca rdiac mediastinal silhouette shows a similar appearance. Patient is rotated. Bones are stable. Lung v olumes are low. Interstitium is prominent. IMPRESSION: Probable basilar atelectasis, difficult to exclude a component of interstitial edema, mi nimal effusions.
[2020-12-21] MEDS: IPRATROPIUM-ALBUTEROL 3 ML NEB INHALATION SCH ×4 (07:48→19:14)
[2020-12-21] MEDS ORDERED: POTASSIUM CHLORIDE ER 20 MEQ TAB.ER PO SCH (08:00)
[2020-12-21] MEDS: ASPIRIN 81 MG PO SCH (09:08)
[2020-12-21] MEDS: DILTIAZEM CD 120 MG CAP.ER.24H PO SCH (09:08)
[2020-12-21] MEDS: APIXABAN 5 MG TAB PO SCH ×2 (09:08→21:13)
[2020-12-21] MEDS: METOPROLOL TARTRATE 50 MG TAB PO SCH ×2 (09:08→21:13)
[2020-12-21] MEDS: ATORVASTATIN 40 MG TAB PO SCH (09:08)
[2020-12-21] MEDS: ASCORBIC ACID 500 MG TAB PO SCH (09:08)
[2020-12-21] MEDS: CHOLECALCIFEROL 25 MCG (1000 IU) TABLET PO SCH (09:08)
[2020-12-21] MEDS: INSULIN ASPART (NovoLOG) 100 UNIT/ML VIAL SQ SCH ×4 (09:08→21:04)
[2020-12-21] MEDS: TAMSULOSIN 0.4 MG CAP.ER.24H PO SCH (09:08)
[2020-12-21] MEDS: PANTOPRAZOLE 40 MG/10 ML VIAL IVP SCH ×2 (09:09→21:14)
[2020-12-21] MEDS ORDERED: FUROSEMIDE 10 MG/ML 2 ML VIAL IV STA (09:51)
--- NOTE | 2020-12-21 10:30 | P.PN ---
Subjective Progress Note Date: 12/21/20 Principal diagnosis: Triple-vessel coronary artery disease. Past medical history significant for coronary artery disease with PCI to the LAD in 2005, chronic atrial fibrillation on Coumadin for anticoagulation, preserved left ventricular function, hypertension, hyperlipidemia, diet controlled diabetes mellitus, obstructive sleep apnea on home CPAP use, previous pituitary tumor, lifetime nonsmoker smoker, daily wine consumption, and family history of premature coronary artery disease with father diagnosed before the age of 55. POD #5 quadruple coronary artery bypass grafting using the left internal mammary artery to the left anterior descending coronary artery, left radial artery from the aorta to the first obtuse marginal coronary artery, a reverse greater saphenous vein graft from the aorta to the second diagonal coronary artery, a reverse greater saphenous vein graft from the aorta to the posterior descending coronary artery, endoscopic harvesting of the left radial artery, endoscopic harvesting of the left greater saphenous vein from ankle to the groin, exclusion of the left atrial appendage using a 40 mm AtriClip, exploratory aortotomy, intraoperative transesophageal echocardiogram and epi-aortic scanning, intraoperative graft flow measurements using the [employer] system. Postoperative acute blood loss anemia and thrombocytopenia, expected given hemodilution and cardiopulmonary bypass pump as well as chronic Coumadin use. The patient was seen in follow-up today 12/21/2020 at his bedside in the intensive care unit. Currently sitting up to the bedside chair, is awake, alert and oriented 3 and is in no acute distress. He denies any complaints of shortness of breath or surgical type pain at this time. This morning the patient reports that he feels somewhat improved from yesterday and states that he feels like he has a little more energy today. He tolerated his first postoperative shower yesterday. The patient also reports that he had been a little bit more active yesterday with ambulating in his room to the door and back to his chair. He is still complaining of some postoperative generalized weakness. Oxygen saturation are 96% on room air and he is achieving 1250 mL on his incentive spirometry with encouragement. Laboratory results this morning continue to show his WBC count continues to trend down and is 13.9 today, hemoglobin 9.3, platelets 212, sodium 138, potassium 3.6, BUN 31, creatinine 0.89, AST 85 and ALT 87. Bedside telemetry showing atrial fibrillation heart rate 93 BPM. No new concerns. Objective - Vital Signs Vital signs: Vital Signs Temp 98.2 F 10/10/21 08:00 Pulse 82 12/21/20 10:00 Resp 25 H 12/21/20 10:00 BP 93/70 12/21/20 10:00 Pulse Ox 98 12/21/20 08:00 Intake & Output 12/20/20 12/21/20 12/21/20 18:59 06:59 18:59 Intake Total 660 480 120 Output Total 0 0 Balance 660 480 120 Intake: IV 180 Sodium Chloride 0.9% 1, 180 000 ml @ 20 mls/hr IV . Q24H [facility] Rx#:[id number] Oral 480 480 120 Output: Urine 0 0 Other: Voiding Method Bedside Commode Bedside Commode # Voids 1 0 0 ABP, PAP, CO, CI - Last Documented Arterial Blood Pressure 115/51 Pulmonary Artery Pressure 32/17 Cardiac Output 4.4 Cardiac Index 2.2 - Exam CONSTITUTIONAL: Sitting up to the bedside chair in the intensive care unit, appears comfortable, cooperative, no apparent acute distress. HEENT: Neck is supple, no JVD, no lymphadenopathy. RESPIRATORY: Lungs sounds essentially clear throughout, diminished to his bilateral bases with few scattered crackles to his bilateral bases. Respirations are symmetrical and nonlabored. Currently on room air with oxygen saturations 96%. Able to achieve 1250 mL on his incentive spirometry. Strong cough. CARDIOVASCULAR: Irregular rhythm and controlled rate. S1 and S2 present, negative for S3, or gallop. Sternum is stable. Palpable peripheral pulses bilaterally, +1 edema to his bilateral lower extremities. No calf pain or tenderness noted. Heart hugger in place with patient demonstrating appropriate use. Knee-high HA hose and sequential compression devices in place to his bilateral lower extremities. GASTROINTESTINAL: Abdomen soft, nontender, nondistended. Hypoactive bowel sounds present 4 quadrants. Tolerating diet. Passing flatus. No guarding or rigidity. Bowel movement yesterday 12/20/2020. GENITOURINARY: Continues to void. INTEGUMENTARY: Skin is warm and dry with no evidence of clubbing or cyanosis. Midline sternal incision clean dry and well approximated, covered with dry intact dressing. Left lower extremity EVH sites well approximated without redness or drainage. Left arm radial artery harvest sites clean, dry and approximated. No drainage or redness is present. NEUROLOGIC: Cranial nerves II through XII intact. No focal deficits. MUSKULOSKELETAL: Able to move all extremities, strength equal bilaterally, generalized weakness. PSYCHIATRIC: Alert and oriented to person place and time, appropriate affect, intact judgment and insight. - Allied health notes Allied health notes reviewed: nursing - Labs CBC & Chem 7: 12/21/20 04:49 12/21/20 04:49 Labs: Abnormal Lab Results - Last 24 Hours (Table) 12/20/20 12/20/20 12/20/20 Range/Units 09:59 11:27 17:03 WBC 16.3 H (3.8-10.6) k/uL RBC 2.63 L (4.30-5.90) m/uL Hgb 9.6 L (13.0-17.5) gm/dL Hct 27.2 L (39.0-53.0) % MCV 103.4 H D (80.0-100.0) fL MCH 36.4 H (25.0-35.0) pg Neutrophils # 11.6 H (1.3-7.7) k/uL Monocytes # 2.1 H (0-1.0) k/uL BUN (9-20) mg/dL Glucose (74-99) mg/dL POC Glucose (mg/dL) 183 H 151 H (75-99) mg/dL Calcium (8.4-10.2) mg/dL Total Bilirubin (0.2-1.3) mg/dL ALT (4-49) U/L Total Protein (6.3-8.2) g/dL Albumin (3.5-5.0) g/dL 12/20/20 12/21/20 12/21/20 Range/Units 22:16 04:49 04:49 WBC 13.9 H (3.8-10.6) k/uL RBC 3.03 L (4.30-5.90) m/uL Hgb 9.3 L (13.0-17.5) gm/dL Hct 27.9 L (39.0-53.0) % MCV (80.0-100.0) fL MCH (25.0-35.0) pg Neutrophils # 10.0 H (1.3-7.7) k/uL Monocytes # (0-1.0) k/uL BUN 31 H (9-20) mg/dL Glucose 137 H (74-99) mg/dL POC Glucose (mg/dL) 150 H (75-99) mg/dL Calcium 8.3 L (8.4-10.2) mg/dL Total Bilirubin 1.7 H (0.2-1.3) mg/dL ALT 85 H (4-49) U/L Total Protein 5.5 L (6.3-8.2) g/dL Albumin 3.3 L (3.5-5.0) g/dL - Imaging and Cardiology Chest x-ray: report reviewed, image reviewed Assessment and Plan Assessment: 1. Triple-vessel coronary artery disease, status post four-vessel CABG 2. Preserved left ventricular function 3. History of coronary artery disease with PCI to the LAD in 2005 4. Chronic atrial fibrillation on Coumadin for anticoagulation, status post exclusion of the left atrial appendage 5. History of hypertension 6. Hyperlipidemia, treated, cholesterol 123, LDL 153, triglycerides 181 7. Diet controlled diabetes mellitus, preoperative hemoglobin A1c 6.2% 8. Obstructive sleep apnea on home CPAP use 9. Previous pituitary tumor 10. Lifetime nonsmoker, preoperative FEV1 91% of predicted 11. Daily wine consumption 13. Family history of premature coronary artery disease with father diagnosed before the age of 55. 14. Postoperative acute blood loss anemia and thrombocytopenia, expected Plan: 1. Continue low-dose aspirin, statin, and beta junito. Will increase metoprolol tartrate as tolerated, we increased his metoprolol tartrate yesterday to 50 mg by mouth twice a day. Continue lisinopril for afterload reduction. 2. Continue cardizem for radial artery spasm prophylaxis, afib heart rate con trol. We will change his Cardizem to Cardizem CD 120 mg by mouth daily. 3. Bronchodilators per pulmonology management. Encourage incentive spirometer use 10 times every hour while awake. 4. Increase activity, ambulate as tolerated, PT/OT/cardiac rehab following. 5. Will monitor daily labs and chest x-rays. Electrolyte replacement per protocol. 6. GI/DVT prophylaxis. 7. Insulin management per primary care service. The patient is a diet- controlled diabetic, preoperative hemoglobin A1c 6.2%, does need tight blood sugar control to promote sternal union and prevent infection. 8. Pain control with current medication regimen. Continue to avoid narcotics. 9. Continue Flomax 0.4 mg by mouth daily for urine retention. Continue to bladder scan and straight cath for greater than 300 mL residual. 10. Continue to record strict and accurate I's and O's. Continue daily weights. 11. Continue Eliquis 5 mg by mouth twice a day for anticoagulation. 12. Lasix 40 mg IV 1 now. 13. More recommendations to follow based on patient's clinical course. Time with Patient: Greater than 30
--- NOTE | 2020-12-21 10:48 | P.PN ---
Subjective Progress Note Date: 12/21/20 HISTORY OF PRESENT ILLNESS This is a 80-year-old male patient of Dr. Campos and Dr. Mullins with past medical history of chronic persistent atrial fibrillation, diabetes mellitus type 2, hypertension, hyperlipidemia, history of pituitary tumor resection, obstructive sleep apnea on BiPAP, gastroesophageal reflux disease, benign prostatic hypertrophy. He should also has history of coronary artery disease status post PCI to the LAD in 2005, heart catheterization in October 2020 found severe triple-vessel disease, subsequently admitted to the hospital for elective coronary artery bypass grafting 12/16 [facility]ORAN to LAD, left radial artery from the aorta to the first obtuse marginal artery, reverse saphenous vein graft from the aorta to the second diagonal artery, reverse saphenous vein graft from the aorta to the posterior descending artery, endoscopic harvesting of the left radial artery, endoscopic harvesting of the left greater saphenous vein from ankle to the groin, exclusion of the left atrial appendage. Patient is seen today in the intensive care unit. He remains intubated and on mechanical ventilation but has done well with sedation holiday and is expected to be extubated this morning. Patient's is at the bedside. He is currently on insulin drip at 3 units pe r hour. Vent settings are tidal volume 500, FiO2 50 and PEEP of 5. cardiac monitor is atrial fibrillation rate controlled. 12/18: Patient has been successfully extubated and is found today sitting in a chair in the intensive care unit. He states his pain is controlled. He denies having any abdominal pain and no diarrhea. He is having good urine output of 35-45 mL per hour. Blood sugars are running between 120 and 150. Patient is on insulin drip and will plan to see transition to Levemir 12 units tonight along with NovoLog scale before meals and at bedtime. Patient is followed by multiple consultants. Patient's and daughter are at bedside. 12/19: Patient had some delirium last night, he is not sleeping silently during the night and drowsy during the day with naps. He is utilizing his CPAP which is been brought from home. Patient is not very motivated to participate with PT . Ensure will be added as he is not eating well. He is complaining of pain in the mid abdomen. No bowel movement since admission. Patient will have the clock suppository today. He has been transitioned to Levemir and NovoLog scale and blood sugars have been stable running 115-130. He has been ordered for a dose of IV Lasix today. Pacer wires have been removed mediastinal and left chest tube in place. Blood work reveals WBC 16.2, hemoglobin 8.9, platelet count 116. Sodium 137, potassium 4.2, chloride 111, CO2 20, BUN 25 creatinine 0.84. Total bilirubin 1.3, AST 104, ALT 117, alkaline phosphatase 54. Patient has been afebrile, heart rate in the 70s and 80s, blood pressure 115/51, pulse ox 95% on room air. cardiac monitor is a sinus rhythm. 12/20: Patient is found sitting up in the chair in minimal distress, complaining of shortness of breath. Patient remains in the ICU. He was up ambulating within the room. Patient has more motivation compared to yesterday. Patient has no other complaints or concerns. His Lasix was held. However he continues to have edema to lower extremities. Jade BC 16.3, hemoglobin 9.6, platelet count 171, sodium 139, potassium 4.0, BUN 34, creatinine 0.82. Patient remained afebrile, cafeteria monitor shows sinus rhythm with a heart rate of 72, blood pressure 129/72 respirations 11, pulse ox 97% on room air. 12/21: Patient is found sitting up in the chair in no acute distress, no complaints of shortness of breath or chest pain today. Patient remains in the ICU. He has been ambulating in the room. Patient's activity level and motivat ion continues to increase. No other complaints or concerns noted. Patient remains afebrile, heart rate 82, respirations 25, blood pressure 93/70, 98% on room air. Jade BC 13.9, hemoglobin 9.3, platelets 212, potassium 3.6, BUN 31, creatinine 0.89. REVIEW OF SYSTEMS Constitutional: No fever, no chills, no night sweats. No weight change. No weakness, reports fatigue reports lethargy. Reports daytime sleepiness. EENT: No headache. No blurred vision or double vision, no loss of vision. No loss of Hearing, no ringing in the ears, no dizziness. No nasal drainage or congestion. No epistaxis. No sore throat. Lungs: No shortness of breath, cough, no sputum production. No wheezing. Cardiovascular: No chest pain, no lower extremity edema. No palpitations. No paroxysmal nocturnal dyspnea. No orthopnea. No lightheadedness or dizziness. No syncopal episodes. Abdominal: No abdominal pain. No nausea, vomiting. No diarrhea. No constipation. No bloody or tarry stools.. No loss of appetite. Genitourinary: No dysuria, increased frequency, urgency. No urinary retention. Musculoskeletal: No myalgias. No muscle weakness, no gait dysfunction, no frequent falls. No back pain. No neck pain. Integumentary: No wounds, no lesions. No rash or pruritus. No unusual bruising. No change in hair or nails. Neurologic: No aphasia. No facial droop. Reports during the night change in mentation. No head injury. No headache. No paralysis. No paresthesia. Psychiatric: No depression. No anxiety. Endocrine: No abnormal blood sugars. PHYSICAL EXAMINATION Gen: This is a 80-year-old male. He is resting in a chair in the intensive care unit. Patient does not appear to be in any acute distress. HEENT: Head is atraumatic, normocephalic. Pupils equal, round. Sclerae is anicteric. Right IJ Cordis NECK: Supple. No JVD. No lymphadenopathy. No thyromegaly. LUNGS: Diminished bilaterally. No wheezes or rhonchi. No intercostal retractions. Chest tubes in place. HEART: Irregular rate and rhythm. No murmur. cardiac monitor sinus rhythm. ABDOMEN: Soft. Bowel sounds are present. No masses. No tenderness. EXTREMITIES: 1+ pedal edema. No calf tenderness. NEUROLOGICAL: Patient is awakens easily, answers questions appropriately, generalized weakness. No neuro deficits noted. ASSESSMENT AND PLAN 1. Coronary artery disease status post 4 vessel CABG 12/16. Continue current management per cardio thoracic surgery Diplopia. Continue aspirin 81 mg daily, Lipitor 40 mg daily, Lopressor 25 mg twice daily 2. Chronic persistent atrial fibrillation. Continue Lopressor. 3. Diabetes mellitus type 2. Insulin drip will be transitioned to Levemir 12 units tonight with NovoLog scale before meals and at bedtime 4. Hypertension. Continue Lopressor 12.5 mg daily. 5. Hyperlipidemia. 6. History of pituitary gland resection. 7. Obstructive sleep apnea on BiPAP. 8. Gastroesophageal reflux disease. 9. Benign prostatic hypertrophy. Barrow catheter for now. Monitor for urinary retention. 10. Acute delirium possibly related to ICU setting, medication effect, lack of sleep. Continue to reorient. DISCHARGE PLAN Home with [facility]. Impression and plan of care have been directed as dictated by the signing physician. Skye Smith nurse practitioner acting as scribe for signing physician. Objective - Vital Signs Vital signs: Vital Signs Temp 98.2 F 12/21/20 08:00 Pulse 82 12/21/20 10:00 Resp 25 H 12/21/20 10:00 BP 93/70 12/21/20 10:00 Pulse Ox 98 12/21/20 08:00 Intake & Output 12/20/20 12/21/20 12/21/20 18:59 06:59 18:59 Intake Total 660 480 120 Output Total 0 0 Balance 660 480 120 Intake: IV 180 Sodium Chloride 0.9% 1, 180 000 ml @ 20 mls/hr IV . Q24H [facility] Rx#:[id number] Oral 480 480 120 Output: Urine 0 0 Other: Voiding Method Bedside Commode Bedside Commode Bedside Commode # Voids 1 0 0 ABP, PAP, CO, CI - Last Documented Arterial Blood Pressure 115/51 Pulmonary Artery Pressure 32/17 Cardiac Output 4.4 Cardiac Index 2.2 - Labs CBC & Chem 7: 12/21/20 04:49 12/21/20 04:49 Labs: Abnormal Lab Results - Last 24 Hours (Table) 12/20/20 12/20/20 12/20/20 Range/Units 09:59 11:27 17:03 WBC (3.8-10.6) k/uL RBC (4.30-5.90) m/uL Hgb (13.0-17.5) gm/dL Hct (39.0-53.0) % Neutrophils # 11.6 H (1.3-7.7) k/uL Monocytes # 2.1 H (0-1.0) k/uL BUN (9-20) mg/dL Glucose (74-99) mg/dL POC Glucose (mg/dL) 183 H 151 H (75-99) mg/dL Calcium (8.4-10.2) mg/dL Total Bilirubin (0.2-1.3) mg/dL ALT (4-49) U/L Total Protein (6.3-8.2) g/dL Albumin (3.5-5.0) g/dL 12/20/20 12/21/20 12/21/20 Range/Units 22:16 04:49 04:49 WBC 13.9 H (3.8-10.6) k/uL RBC 3.03 L (4.30-5.90) m/uL Hgb 9.3 L (13.0-17.5) gm/dL Hct 27.9 L (39.0-53.0) % Neutrophils # 10.0 H (1.3-7.7) k/uL Monocytes # (0-1.0) k/uL BUN 31 H (9-20) mg/dL Glucose 137 H (74-99) mg/dL POC Glucose (mg/dL) 150 H (75-99) mg/dL Calcium 8.3 L (8.4-10.2) mg/dL Total Bilirubin 1.7 H (0.2-1.3) mg/dL ALT 85 H (4-49) U/L Total Protein 5.5 L (6.3-8.2) g/dL Albumin 3.3 L (3.5-5.0) g/dL
[2020-12-21 11:06] LABS: Glucose,Whole Blood 71 mg/dL (75-99)
--- NOTE | 2020-12-21 13:13 | P.PN ---
Subjective Patient came back patient is sitting up in the chair. He looks a lot more alert. He is watching TV and [place] Looks a little happy. He did smile at me today He still feels tired and lousy appetite is not covered Complains of mild chest discomfort but no shortness of breath Breath sounds are reduced bilaterally no rhonchi no crackles Heart sounds S1 and S2 are normal soft No lower extremity edema Impression Coronary artery bypass grafting line progressing slowly but doing well but apparently stable Suggest continue ICU care as before continue current cardiac medications Objective - Vital Signs Vital signs: Vital Signs Temp 98.2 F 12/21/20 08:00 Pulse 86 12/21/20 11:00 Resp 10 L 12/21/20 11:00 BP 98/67 12/21/20 11:00 Pulse Ox 98 12/21/20 08:00 Intake & Output 12/20/20 12/21/20 12/21/20 18:59 06:59 18:59 Intake Total 660 480 120 Output Total 0 0 0 Balance 660 480 120 Intake: IV 180 Sodium Chloride 0.9% 1, 180 000 ml @ 20 mls/hr IV . Q24H [facility] Rx#:[id number] Oral 480 480 120 Output: Urine 0 0 0 Other: Voiding Method Bedside Commode Bedside Commode Toilet # Voids 1 0 0 ABP, PAP, CO, CI - Last Documented Arterial Blood Pressure 115/51 Pulmonary Artery Pressure 32/17 Cardiac Output 4.4 Cardiac Index 2.2 - Labs CBC & Chem 7: 12/21/20 04:49 12/21/20 04:49 Labs: Abnormal Lab Results - Last 24 Hours (Table) 12/20/20 12/20/20 12/20/20 Range/Units 09:59 17:03 22:16 WBC (3.8-10.6) k/uL RBC (4.30-5.90) m/uL Hgb (13.0-17.5) gm/dL Hct (39.0-53.0) % Neutrophils # 11.6 H (1.3-7.7) k/uL Monocytes # 2.1 H (0-1.0) k/uL BUN (9-20) mg/dL Glucose (74-99) mg/dL POC Glucose (mg/dL) 151 H 150 H (75-99) mg/dL Calcium (8.4-10.2) mg/dL Total Bilirubin (0.2-1.3) mg/dL ALT (4-49) U/L Total Protein (6.3-8.2) g/dL Albumin (3.5-5.0) g/dL 12/21/20 12/21/20 12/21/20 Range/Units 04:49 04:49 11:05 WBC 13.9 H (3.8-10.6) k/uL RBC 3.03 L (4.30-5.90) m/uL Hgb 9.3 L (13.0-17.5) gm/dL Hct 27.9 L (39.0-53.0) % Neutrophils # 10.0 H (1.3-7.7) k/uL Monocytes # (0-1.0) k/uL BUN 31 H (9-20) mg/dL Glucose 137 H (74-99) mg/dL POC Glucose (mg/dL) 71 L (75-99) mg/dL Calcium 8.3 L (8.4-10.2) mg/dL Total Bilirubin 1.7 H (0.2-1.3) mg/dL ALT 85 H (4-49) U/L Total Protein 5.5 L (6.3-8.2) g/dL Albumin 3.3 L (3.5-5.0) g/dL
--- NOTE | 2020-12-21 13:45 | P.PN ---
Subjective Progress Note Date: 12/21/20 Principal diagnosis: Coronary artery disease, status post CABG postoperative day #5 This is a 80-year-old male patient with a history of atrial fibrillation, hyperlipidemia, hypertension, diabetes mellitus. Lifelong nonsmoker. who was found to have severe triple-vessel coronary artery disease with a totally occluded mid LAD and good collaterals and normal ejection fraction. He had been seen and evaluated by Dr. Edmond who recommended coronary artery bypass grafting. He presented here yesterday for elective surgery. He had undergone quadruple coronary artery bypass grafting utilizing a MORAN to the LAD, left radial artery to the first obtuse marginal artery, reverse saphenous vein graft to the second diagonal artery and posterior descending artery. He remains intu bated and on the mechanical ventilator this morning. Current settings are assist-control mode at a rate of 12, tidal volume 500, FiO2 50% and a PEEP of 5. Morning blood gases revealed a P O2 of 76, pCO2 39, pH 7.43. He was found to the cardiac output of 3.5. Cardiac index of 1.8. Mediastinal chest tube with 1.3 L output in the past 24 hours. Left chest tube 900 mL output. He has a right internal jugular [place]-Sara catheter in place. Right arterial line in place. Left radial harvest site dressing dry and intact. ADOLFO in place. He is currently on a milrinone drip at 0.2 mg/kg/m. Insulin drip at 3 units per hour. Norepinephrine at 0.05 mcg/kg/m. Marcus-Synephrine at 0.8 mcg/kg/m. Propofol at 25 mcg/kg/m. 0.9 normal saline at 50 MLS per hour. He did have episode of atrial fibrillation with rapid ventricular response and received digoxin IV. He also has received albumin. 2 units of fresh frozen plasma. One unit of packed red blood cells. White count 9.3. Hemoglobin 8.6. Platelet count 97,000. INR 1.2. Fibrinogen 216. Sodium 139. Potassium 4.0. Bicarb 25. Creatinine 0.81. Glucose 132. Total protein 4.7. Albumin 3.0. Chest x-ray reveals cardiomegaly and chronic parenchymal changes with a small left pleural effusion and left greater than right bibasilar acute atelectasis. Mediastinal and left chest tubes in place. No pneumothorax seen. The patient is seen today 12/18/2020 in follow-up in intensive care unit. He was successfully extubated yesterday at approximately 12:45 PM. He is awake and alert in no acute distress. He is on 5 L nasal cannula and maintaining O2 saturations in the 90s. Chest x-ray reveals interval extubation. Cardiomegaly and chronic parenchymal changes with small left greater than right bibasilar acute atelectasis. Left-sided chest tube in place without evidence of pneumothorax. Mediastinal tubes in place. Right internal jugular catheter remains in place. Right radial arterial blood glucose. Current AV pacer wires in place. Remains in atrial fibrillation with controlled ventricular response. Cardiac output 4.1. Cardiac index 2.1. PA pressures 29/12. CVP is 6. He remains on milrinone at 0.1 mg/kg per minute. Insulin drip at 3 units an hour. 0.9 normal saline at 30 MLS per hour. He is pulling approximate 500-750 MLS on the incentive spirometer. Currently up in a recliner at the bedside. Heparin for DVT prophylaxis. The patient is seen today 12/19/2020 in follow-up in the intensive care unit. Postoperative day #3. He is currently sitting up in a chair at the bedside. Awake and alert in no acute distress. He was having some periods of confusion. hospice office coordinator is at the bedside. He is maintaining O2 saturations in the mid 90s on room air. He is off most drips. He is still on insulin at 5 units per hour. 0.9#20 MLS per hour. Mediastinal chest tube has remain in place with 120 ML's house and 60 ML's of the left chest. He is remaining in sinus rhythm. Pacer wires have been removed. Needs increased encouragement regarding use the incentive spirometer. Chest x-ray reveals postoperative changes with small layering pleural effusions and some improvement in the atelectasis at the left base. If he did require 2 units of fresh frozen plasma one unit of red blood cells this admission. White count 16.2. Hemoglobin 8.9. Platelets 116. Sodium 137. Potassium 4.2. Bicarb 20. Creatinine 0.84. AST 104. ALT 114. Heparin for DVT prophylaxis. Reevaluated today on 12/20/2020, patient is now postoperative day #4, sitting at a bedside chair, patient is on room air, does not seem to be in any distress. O2 saturations 97%, improving with incentive spirometry achieving about 1000 mL. Chest x-ray nonetheless showed bibasilar atelectasis. Patient was advised to do more effort and use his incentive spirometry more often. His chest tubes were removed yesterday without incident. Patient is in atrial fibrillation, he is on Eliquis. Hemodynamically stable, not requiring any pressors or any inotropes. WBC count is 16.3 hemoglobin is 9.6. Electrodes are normal renal profile is normal Reevaluated today on 12/21/2020, patient is now postoperative day #5. Remains comfortable, he is on room air, he is alert and oriented, but generally weak. Denies any shortness of breath, no cough, no wheezing, patient is compliant with his incentive spirometer, achieving over 1250 labs were basically unremarkable, hemoglobin is 9.3, electrolytes are normal renal profile is normal liver profile is normal chest x-ray showed minimal bibasilar atelectasis. Objective - Vital Signs Vital signs: Vital Signs Temp 98.2 F 12/21/20 08:00 Pulse 86 12/21/20 11:00 Resp 10 L 12/21/20 11:00 BP 98/67 12/21/20 11:00 Pulse Ox 98 12/21/20 08:00 Intake & Output 12/20/20 12/21/20 12/21/20 18:59 06:59 18:59 Intake Total 660 480 120 Output Total 0 0 0 Balance 660 480 120 Intake: IV 180 Sodium Chloride 0.9% 1, 180 000 ml @ 20 mls/hr IV . Q24H [facility] Rx#:[id number] Oral 480 480 120 Output: Urine 0 0 0 Other: Voiding Method Bedside Commode Bedside Commode Toilet # Voids 1 0 0 ABP, PAP, CO, CI - Last Documented Arterial Blood Pressure 115/51 Pulmonary Artery Pressure 32/17 Cardiac Output 4.4 Cardiac Index 2.2 - Exam CONSTITUTIONAL: Revealed 80-year-old white male on room air, sitting at a bedside chair, in no distress. HEENT: PERRLA, EOMI, anicteric, no neck masses, no JVD. RESPIRATORY: Symmetrical chest expansion, diminished breath sounds at the bases no rhonchi or wheezes CARDIOVASCULAR: Irregular irregular rhythm, normal S1 and S2, no S3 gallop. No murmur. GASTROINTESTINAL: Obese soft nontender no megaly no rebound no guarding. INTEGUMENTARY: No clubbing edema or cyanosis, no rashes. NEUROLOGIC: Generally weak, alert oriented 3 mg focal deficit MUSKULOSKELETAL: Generalized weakness otherwise unremarkable. PSYCHIATRIC: Normal mood, flat affect and normal mental status examination. - Labs CBC & Chem 7: 12/21/20 04:49 12/21/20 04:49 Labs: Abnormal Lab Results - Last 24 Hours (Table) 12/20/20 12/20/20 12/20/20 Range/Units 09:59 17:03 22:16 WBC (3.8-10.6) k/uL RBC (4.30-5.90) m/uL Hgb (13.0-17.5) gm/dL Hct (39.0-53.0) % Neutrophils # 11.6 H (1.3-7.7) k/uL Monocytes # 2.1 H (0-1.0) k/uL BUN (9-20) mg/dL Glucose (74-99) mg/dL POC Glucose (mg/dL) 151 H 150 H (75-99) mg/dL Calcium (8.4-10.2) mg/dL Total Bilirubin (0.2-1.3) mg/dL ALT (4-49) U/L Total Protein (6.3-8.2) g/dL Albumin (3.5-5.0) g/dL 12/21/20 12/21/20 12/21/20 Range/Units 04:49 04:49 11:05 WBC 13.9 H (3.8-10.6) k/uL RBC 3.03 L (4.30-5.90) m/uL Hgb 9.3 L (13.0-17.5) gm/dL Hct 27.9 L (39.0-53.0) % Neutrophils # 10.0 H (1.3-7.7) k/uL Monocytes # (0-1.0) k/uL BUN 31 H (9-20) mg/dL Glucose 137 H (74-99) mg/dL POC Glucose (mg/dL) 71 L (75-99) mg/dL Calcium 8.3 L (8.4-10.2) mg/dL Total Bilirubin 1.7 H (0.2-1.3) mg/dL ALT 85 H (4-49) U/L Total Protein 5.5 L (6.3-8.2) g/dL Albumin 3.3 L (3.5-5.0) g/dL Assessment and Plan Assessment: 1 Severe triple-vessel coronary artery disease status post coronary artery bypass grafting 4. Postoperative day #5 2 postoperative atelectasis, expected 3 Previous history of coronary artery disease with PCI to the LAD in 2005 4 History of atrial fibrillation, anticoagulated with warfarin in the outpatient setting 5 Hypertension 6 Hyperlipidemia 7 Diabetes mellitus 8 History of obstructive sleep apnea, CPAP 9 History of pituitary tumor 10 Lifelong nonsmoker. FEV1 value of 91% of predicted Recommendation: Continue low-dose aspirin statins beta blockers and continue Cardizem. Continue GI and DVT prophylaxis. Continue pain management. Continue Eliquis. Continue incentive spirometry Chest x-ray continues to show minimal bibasilar atelectasis. All labs were reviewed. Continue bronchodilators. Ambulate as tolerated. Continue incentive spirometry We'll continue to follow Time with Patient: Less than 30
[2020-12-21] MEDS: lisinopriL 5 MG TAB PO SCH (14:35)
[2020-12-21 17:04] LABS: Glucose,Whole Blood 137 mg/dL (75-99)
[2020-12-21 20:59] LABS: Glucose,Whole Blood 120 mg/dL (75-99)
[2020-12-21] MEDS: MONTELUKAST 10 MG TAB PO SCH (21:13)
[2020-12-21] MEDS: SENNOSIDES-DOCUSATE SODIUM 1 EACH TAB PO SCH (21:13)
[2020-12-21] MEDS: LATANOPROST 0.005% OPHTH DROPS 2.5 ML BTL BOTH EYES SCH (21:14)
[2020-12-21] MEDS: INSULIN DETEMIR (LEVEMIR) 100 UNIT/ML SYR SQ SCH (21:14)
[2020-12-22 04:25] LABS: Albumin 3.2 g/dL (3.5-5.0); Calcium 8.2 mg/dL (8.4-10.2); Potassium 3.9 mmol/L (3.5-5.1); Total Bilirubin 2.1 mg/dL (0.2-1.3); Total Protein 5.4 g/dL (6.3-8.2)
[2020-12-22 04:32] LABS: HCT 28.4 % (39.0-53.0); HGB 9.5 gm/dL (13.0-17.5); MCH 31.5 pg (25.0-35.0); MCHC 33.3 g/dL (31.0-37.0); MCV 94.5 fL (80.0-100.0); Platelet Count 242 k/uL (150-450); Poikilocytosis Slight; RBC 3.01 m/uL (4.30-5.90); RDW 15.8 % (11.5-15.5)
[2020-12-22] MEDS: INSULIN ASPART (NovoLOG) 100 UNIT/ML VIAL SQ SCH ×4 (07:15→20:34)
[2020-12-22 07:16] LABS: Glucose,Whole Blood 119 mg/dL (75-99)
[2020-12-22] MEDS ORDERED: POTASSIUM CHLORIDE ER 20 MEQ TAB.ER PO SCH (08:00)
--- NOTE | 2020-12-22 08:17 | XR ---
EXAMINATION TYPE: XR chest 1V portable DATE OF EXAM: 12/22/2020 COMPARISON: 12/21/2020 INDICATION: Postop cardiac surgery TECHNIQUE: Single frontal view of the chest is obtained. FINDINGS: The heart size is moderately prominent. The pulmonary vasculature is normal. Small bilateral pleural effusions are present. Some minimal compressive atelectasis may be adjacent. Sternotomy wires and prior CABG. IMPRESSION: 1. Small bilateral pleural effusions with adjacent infiltrate, likely compressive atelectasis. 2. Moderate cardiomegaly
[2020-12-22] MEDS: IPRATROPIUM-ALBUTEROL 3 ML NEB INHALATION SCH ×4 (08:32→20:13)
--- NOTE | 2020-12-22 09:00 | P.PN ---
Subjective Progress Note Date: 12/22/20 Principal diagnosis: Triple-vessel coronary artery disease. Past medical history significant for coronary artery disease with PCI to the LAD in 2006, chronic atrial fibrillation on Coumadin for anticoagulation, preserved left ventricular function, hypertension, hyperlipidemia, diet controlled diabetes mellitus, obstructive sleep apnea on home CPAP use, previous pituitary tumor, lifetime nonsmoker smoker, daily wine consumption, and family history of premature coronary artery disease with father diagnosed before the age of 55. POD #6 quadruple coronary artery bypass grafting using the left internal mammary artery to the left anterior descending coronary artery, left radial artery from the aorta to the first obtuse marginal coronary artery, a reverse greater saphenous vein graft from the aorta to the second diagonal coronary artery, a reverse greater saphenous vein graft from the aorta to the posterior descending coronary artery, endoscopic harvesting of the left radial artery, endoscopic harvesting of the left greater saphenous vein from ankle to the groin, exclusion of the left atrial appendage using a 40 mm AtriClip, exploratory aortotomy, intraoperative transesophageal echocardiogram and epi-aortic scanning, intraoperative graft flow measurements using the GLOstim system. Postoperative acute blood loss anemia and thrombocytopenia, expected given hemodilution and cardiopulmonary bypass pump as well as chronic Coumadin use. The patient was seen in follow-up today 12/22/2020 at his bedside in the intensive care unit. Currently sitting up to the bedside chair, is awake, alert and oriented 3 and is in no acute distress. The patient reports he feels much improved today, denies any complaints of pain or shortness of breath at this time. He reports he already ambulated this morning with minimal assistance from nursing staff to the nurse sensation and back. Oxygen saturations are 97% on room air and he is achieving 1500 mL on his incentive spirometry. He remains hemodynamically stable and is currently on no inotropic pressure support. Bed side telemetry showing atrial fibrillation heart rate 93 BPM. He remains complaining of some generalized weakness but reports that he feels like he is getting stronger. Objective - Vital Signs Vital signs: Vital Signs Temp 97.8 F 12/22/20 08:00 Pulse 106 H 12/22/20 08:47 Resp 28 H 12/22/20 08:00 BP 122/79 12/22/20 08:00 Pulse Ox 97 12/22/20 08:00 Intake & Output 12/21/20 12/22/20 12/22/20 18:59 06:59 18:59 Intake Total 480 Output Total 0 0 0 Balance 480 0 0 Weight 94.9 kg Intake: Oral 480 Output: Urine 0 0 0 Other: Voiding Method Toilet Toilet Toilet # Voids 1 1 0 # Bowel Movements 1 ABP, PAP, CO, CI - Last Documented Arterial Blood Pressure 115/51 Pulmonary Artery Pressure 32/17 Cardiac Output 4.4 Cardiac Index 2.2 - Exam CONSTITUTIONAL: Sitting up to the bedside chair in the intensive care unit, appears comfortable, cooperative, no apparent acute distress. HEENT: Neck is supple, no JVD, no lymphadenopathy. RESPIRATORY: Lungs sounds essentially clear throughout, diminished to his bilateral bases with few scattered crackles to his bilateral bases. Respirations are symmetrical and nonlabored. Currently on room air with oxygen saturations 97%. Able to achieve 1500 mL on his incentive spirometry. Strong cough. CARDIOVASCULAR: Irregular rhythm and controlled rate. S1 and S2 present, negative for S3, or gallop. Sternum is stable. Palpable peripheral pulses bilaterally, +1 edema to his bilateral lower extremities. No calf pain or tenderness noted. Heart hugger in place with patient demonstrating appropriate use. Knee-high HA hose and sequential compression devices in place to his bilateral lower extremities. GASTROINTESTINAL: Abdomen soft, nontender, nondistended. Active bowel sounds present 4 quadrants. Tolerating diet. Passing flatus. No guarding or rigidity. GENITOURINARY: Continues to void. INTEGUMENTARY: Skin is warm and dry with no evidence of clubbing or cyanosis. Midline sternal incision clean dry and well approximated, covered with dry intact dressing. Left lower extremity EVH sites well approximated without redne ss or drainage. Left arm radial artery harvest sites clean, dry and approximated. No drainage or redness is present. NEUROLOGIC: Cranial nerves II through XII intact. No focal deficits. MUSKULOSKELETAL: Able to move all extremities, strength equal bilaterally, generalized weakness. PSYCHIATRIC: Alert and oriented to person place and time, appropriate affect, intact judgment and insight. - Allied health notes Allied health notes reviewed: nursing - Labs CBC & Chem 7: 12/22/20 03:44 12/22/20 03:44 Labs: Abnormal Lab Results - Last 24 Hours (Table) 12/21/20 12/21/20 12/21/20 Range/Units 11:05 17:03 20:57 WBC (3.8-10.6) k/uL RBC (4.30-5.90) m/uL Hgb (13.0-17.5) gm/dL Hct (39.0-53.0) % RDW (11.5-15.5) % Sodium (137-145) mmol/L Carbon Dioxide (22-30) mmol/L BUN (9-20) mg/dL Glucose (74-99) mg/dL POC Glucose (mg/dL) 71 L 137 H 120 H (75-99) mg/dL Calcium (8.4-10.2) mg/dL Total Bilirubin (0.2-1.3) mg/dL ALT (4-49) U/L Total Protein (6.3-8.2) g/dL Albumin (3.5-5.0) g/dL 12/22/20 12/22/20 12/22/20 Range/Units 03:44 03:44 07:14 WBC 13.4 H (3.8-10.6) k/uL RBC 3.01 L (4.30-5.90) m/uL Hgb 9.5 L (13.0-17.5) gm/dL Hct 28.4 L (39.0-53.0) % RDW 15.8 H (11.5-15.5) % Sodium 135 L (137-145) mmol/L Carbon Dioxide 21 L (22-30) mmol/L BUN 26 H (9-20) mg/dL Glucose 162 H (74-99) mg/dL POC Glucose (mg/dL) 119 H (75-99) mg/dL Calcium 8.2 L (8.4-10.2) mg/dL Total Bilirubin 2.1 H (0.2-1.3) mg/dL ALT 56 H (4-49) U/L Total Protein 5.4 L (6.3-8.2) g/dL Albumin 3.2 L (3.5-5.0) g/dL - Imaging and Cardiology Chest x-ray: report reviewed, image reviewed Assessment and Plan Assessment: 1. Triple-vessel coronary artery disease, status post four-vessel CABG 2. Preserved left ventricular function 3. History of coronary artery disease with PCI to the LAD in 2005 4. Chronic atrial fibrillation on Coumadin for anticoagulation, status post exclusion of the left atrial appendage 5. History of hypertension 6. Hyperlipidemia, treated, cholesterol 123, LDL 153, triglycerides 181 7. Diet controlled diabetes mellitus, preoperative hemoglobin A1c 6.2% 8. Obstructive sleep apnea on home CPAP use 9. Previous pituitary tumor 10. Lifetime nonsmoker, preoperative FEV1 91% of predicted 11. Daily wine consumption 13. Family history of premature coronary artery disease with father diagnosed before the age of 55. 14. Postoperative acute blood loss anemia and thrombocytopenia, expected Plan: 1. Continue low-dose aspirin, statin, and beta junito. Will increase metoprolol tartrate as tolerated to 75 mg by mouth twice a day. Continue lisinopril for afterload reduction. 2. Continue cardizem for radial artery spasm prophylaxis, afib heart rate control. Please do not discontinue the Cardizem without checking with cardiothoracic surgery service first please. 3. Bronchodilators per pulmonology management. Encourage incentive spirometer use 10 times every hour while awake. 4. Increase activity, ambulate as tolerated, PT/OT/cardiac rehab following. 5. Will monitor daily labs and chest x-rays. Electrolyte replacement per p rotocol. 6. GI/DVT prophylaxis. 7. Insulin management per primary care service. The patient is a diet- controlled diabetic, preoperative hemoglobin A1c 6.2%, does need tight blood sugar control to promote sternal union and prevent infection. 8. Pain control with current medication regimen. Continue to avoid narcotics. 9. Continue Flomax 0.4 mg by mouth daily for urine retention. Continue to bladder scan and straight cath for greater than 300 mL residual. Check postvoid residual. 10. Continue to record strict and accurate I's and O's. Continue daily weights. 11. Continue Eliquis 5 mg by mouth twice a day for anticoagulation. 12. Lasix 20 mg IV [address] Hansen for evaluation for inpatient rehab. 14. More recommendations to follow based on patient's clinical course. Time with Patient: Greater than 30
[2020-12-22] MEDS: METOPROLOL TARTRATE 25 MG TAB PO SCH ×2 (09:08→20:37)
[2020-12-22] MEDS: DILTIAZEM CD 120 MG CAP.ER.24H PO SCH (09:09)
[2020-12-22] MEDS: PANTOPRAZOLE 40 MG/10 ML VIAL IVP SCH ×2 (09:09→20:38)
[2020-12-22] MEDS: ATORVASTATIN 40 MG TAB PO SCH (09:12)
[2020-12-22] MEDS: ASCORBIC ACID 500 MG TAB PO SCH (09:12)
[2020-12-22] MEDS: ASPIRIN 81 MG PO SCH (09:12)
[2020-12-22] MEDS: TAMSULOSIN 0.4 MG CAP.ER.24H PO SCH (09:12)
[2020-12-22] MEDS: APIXABAN 5 MG TAB PO SCH ×2 (09:12→20:38)
[2020-12-22] MEDS: CHOLECALCIFEROL 25 MCG (1000 IU) TABLET PO SCH (09:12)
[2020-12-22] MEDS: FUROSEMIDE 10 MG/ML 2 ML VIAL IV STA ×2 (10:01→10:09)
[2020-12-22] MEDS ORDERED: FUROSEMIDE 10 MG/ML 2 ML VIAL IV ONE ×2 (10:04→16:16)
--- NOTE | 2020-12-22 11:16 | P.PN ---
Subjective Progress Note Date: 12/22/20 Principal diagnosis: Coronary artery disease, status post CABG, postoperative day #6 On today's evaluation on 12/22/2020 patient is seen in the intensive care unit, today's postoperative day #6, status post four-vessel coronary artery bypass grafting, patient is currently on room air, his pulse ox is 100%, he denies any dyspnea other than with exertion, vital signs have been stable, he remains in A. fib with a rate of 101-114 BPM, blood pressure is been stable, he is on Eliquis 5 mg twice daily, his been placed on oral Cardizem CD 120 mg daily, and metoprolol dose has been increased to 75 mg twice daily, cardiology is following, he has received another dose of IV Lasix, he is working on the incentive spirometer, today's chest x-ray shows small bilateral pleural effusi ons with adjacent infiltrates likely compressive atelectasis, moderate cardiomegaly. he appears to be swollen generally, and upper and lower extremities. His been tolerating ambulation with assistance. His had no acute events overnight. Today's labs have been reviewed, his white blood cell count is 13.4, hemoglobin is 10.5, sodium is 135, potassium is 3.8, chloride is 104, CO2 is 21, BUN is 26 creatinine 0.97. All of his chest tubes have been discontinued, Barrow catheter has been discontinued, he has been voiding. Objective - Vital Signs Vital signs: Vital Signs Temp 97.8 F 12/22/20 08:00 Pulse 101 H 12/22/20 10:00 Resp 21 12/22/20 10:00 BP 123/72 12/22/20 10:00 Pulse Ox 100 12/22/20 10:00 Intake & Output 12/21/20 12/22/20 12/22/20 18:59 06:59 18:59 Intake Total 480 Output Total 0 0 0 Balance 480 0 0 Weight 94.9 kg Intake: Oral 480 Output: Urine 0 0 0 Other: Voiding Method Toilet Toilet Toilet # Voids 1 1 0 # Bowel Movements 1 ABP, PAP, CO, CI - Last Documented Arterial Blood Pressure 115/51 Pulmonary Artery Pressure 32/17 Cardiac Output 4.4 Cardiac Index 2.2 - Exam GENERAL EXAM: Alert, very pleasant, 80-year-old white male, on room air, with a pulse ox of 100%, appears weak, but no acute distress, sitting up in a recliner comfortable in no apparent distress. HEAD: Normocephalic/atraumatic. EYES: Normal reaction of pupils, equal size. Conjunctiva pink, sclera white. NOSE: Clear with pink turbinates. THROAT: No erythema or exudates. NECK: No masses, no JVD, no thyroid enlargement, no adenopathy. CHEST: No chest wall deformity. Symmetrical expansion. Midsternal incision is clean dry and intact, chest tube sites clean dry and intact LUNGS: Equal air entry with no crackles, wheeze, rhonchi or dullness. CVS: Irregular rate and rhythm, normal S1 and S2, no gallops, no murmurs, no rubs ABDOMEN: Soft, nontender. No hepatosplenomegaly, normal bowel sounds, no guarding or rigidity. EXTREMITIES: No clubbing, generalized edema involving upper and lower extre mities, no cyanosis, 2+ pulses and upper and lower extremities. MUSCULOSKELETAL: Muscle strength and tone normal. SPINE: No scoliosis or deformity SKIN: No rashes CENTRAL NERVOUS SYSTEM: Alert and oriented -3. No focal deficits, tone is normal in all 4 extremities. PSYCHIATRIC: Alert and oriented -3. Appropriate affect. Intact judgment and insight. - Labs CBC & Chem 7: 12/22/20 03:44 12/22/20 03:44 Labs: Abnormal Lab Results - Last 24 Hours (Table) 12/21/20 12/21/20 12/22/20 Range/Units 17:03 20:57 03:44 WBC 13.4 H (3.8-10.6) k/uL RBC 3.01 L (4.30-5.90) m/uL Hgb 9.5 L (13.0-17.5) gm/dL Hct 28.4 L (39.0-53.0) % RDW 15.8 H (11.5-15.5) % Sodium (137-145) mmol/L Carbon Dioxide (22-30) mmol/L BUN (9-20) mg/dL Glucose (74-99) mg/dL POC Glucose (mg/dL) 137 H 120 H (75-99) mg/dL Calcium (8.4-10.2) mg/dL Total Bilirubin (0.2-1.3) mg/dL ALT (4-49) U/L Total Protein (6.3-8.2) g/dL Albumin (3.5-5.0) g/dL 12/22/20 12/22/20 Range/Units 03:44 07:14 WBC (3.8-10.6) k/uL RBC (4.30-5.90) m/uL Hgb (13.0-17.5) gm/dL Hct (39.0-53.0) % RDW (11.5-15.5) % Sodium 135 L (137-145) mmol/L Carbon Dioxide 21 L (22-30) mmol/L BUN 26 H (9-20) mg/dL Glucose 162 H (74-99) mg/dL POC Glucose (mg/dL) 119 H (75-99) mg/dL Calcium 8.2 L (8.4-10.2) mg/dL Total Bilirubin 2.1 H (0.2-1.3) mg/dL ALT 56 H (4-49) U/L Total Protein 5.4 L (6.3-8.2) g/dL Albumin 3.2 L (3.5-5.0) g/dL Assessment and Plan Plan: Assessment: #1. Severe triple-vessel coronary artery disease status post coronary artery bypass grafting 4, postoperative day #6 #2. Postoperative atelectasis, expected #3. Previous history of coronary artery disease with PCI to the LAD in 2005 #4. History of atrial fibrillation anticoagulated with warfarin in the outpatient setting, currently on Eliquis #5. Hypertension #6. Hyperlipidemia #7. Diabetes mellitus #8. History of obstructive sleep apnea on CPAP #9. History of pituitary tumor #10. Lifelong nonsmoker, with preop FEV1 of 91% of predicted Plan: Continue encouraging deep breathing and coughing His chest x-ray has been reviewed Patient was given a dose of diuretics per CT surgery Continue with oral anticoagulation, rate control medications include Cardizem CD and metoprolol Continues on aspirin 81 mg, and Lipitor 40 mg Tolerating ambulation All chest tubes have been discontinued Hemodynamically has been stable His been working with physical therapy We'll continue following his clinical course I performed a history & physical examination of the patient and discussed their management with my nurse practitioner, Cherelle Hutchins. I reviewed the nurse practitioner's note and agree with the documented findings and plan of care. Lung sounds are positive for diminished breath sounds throughout the lung diaz. The findings and the impression was discussed with the patient. I attest to the documentation by the nurse practitioner. Time with Patient: Greater than 30
--- NOTE | 2020-12-22 11:17 | P.CONS ---
History of Present Illness - Chief Complaint Cardiac debility - History of Present Illness I had the opportunity to see patient for inpatient rehab consultation with regard to cardiac debility. Patient admitted to [facility] December 17 with known cardiac disease underwent CABG Dr. Edmond. Seen medically by cardiology. Seen by pulmonary for ICU and vent care. Seen by PCP, Dr. Campos. Chest x-rays followed for pleural effusions, atelectasis and cardiomegaly. Has started therapy. PT reports supervision for bed mobility and two-person assistance for transfer and gait 25 feet with roller walker. OT reports two-person maximal assistance for upper dressing, bathing and functional mobility/transfers and two-person total assistance for toileting. Previous functional history as elicited from patient: 80-year-old right-handed white male who is lives in one floor home with basement, with . Both retired. generally does the laundry and patient generally does the cooking and driving and is independent with standing shower and gait without device. PCP Dr. Campos and ambulance paramedic Dr. Mullins. Denies tobacco and does enjoy Sangria. Review of Systems Review of systems: ENT: Denies sneezes or discharge. Eyes: Denies discharge or photophobia. Cardiac: Sternal discomfort. Pulmonary: [id number] shortness of breath. Gastrointestinal: Denies nausea, emesis, constipation, diarrhea. Genitourinary: Difficulty with urination. Musculoskeletal: Denies muscle or bone aches. Neurologic: Denies motor or sensory change. Endocrine: Denies shakes or sweats. Oncology: Denies cancers. Dermatologic: Denies rash, itching, pruritus. ALLERGY/immunology: Denies sneezes, rashes. Past Medical History Past Medical History: Atrial Fibrillation, Diabetes Mellitus, Hyperlipidemia, Hypertension, Prostate Disorder History of Any Multi-Drug Resistant Organisms: None Reported Past Surgical History: Heart Catheterization With Stent, Tonsillectomy Additional Past Surgical History / Comment(s): pitutary tumor removed,heart cath x2 Past Anesthesia/Blood Transfusion Reactions: No Reported Reaction Additional Past Anesthesia/Blood Transfusion Reaction / Comm: no hx blood transfusion Date of Last Stent Placement:: 2005 Smoking Status: Never smoker - Past Family History Father Family Medical History: Congestive Heart Failure (CHF), Coronary Artery Disease (CAD), Myocardial Infarction ([place]) Additional Family Medical History / Comment(s): Premature coronary artery disease, CABG Mother Additional Family Medical History / Comment(s): Depression, committed suicide Medications and Allergies Home Medications Medication Instructions Recorded Confirmed Type Ascorbic Acid [Vitamin C] 500 mg PO DAILY 04/29/15 12/08/20 History Cholecalciferol [Vitamin D3 (25 25 mcg PO DAILY 04/29/15 12/08/20 History Mcg = 1000 Iu)] Esomeprazole Magnesium [NexIUM] 40 mg PO HS 04/29/15 12/08/20 History Ezetimibe/Simvastatin [Vytorin 1 tab PO DAILY 04/29/15 12/08/20 History 10-40 mg Tablet] Warfarin [Coumadin] 2.5 mg PO SUMOTUTHSA 04/29/15 12/08/20 History atenoloL 25 mg PO DAILY 04/29/15 12/08/20 History lisinopriL [Zestril] 20 mg PO DAILY 04/29/15 12/08/20 History Calcium Carbonate [Calcium] 300 mg PO DAILY 04/30/16 12/08/20 History Diltiazem Cd [Cardizem CD] 120 mg PO DAILY 06/10/20 12/08/20 History Latanoprost/Pf [Latanoprost 0.005% 1 drop BOTH EYES HS 06/10/20 12/08/20 History Eye Drop] Montelukast [Singulair] 10 mg PO HS 06/10/20 12/08/20 History Warfarin [Coumadin] 5 mg PO WEFR 06/10/20 12/08/20 History Aspirin 81 mg PO DAILY chew 10/30/20 12/08/20 Rx Isosorbide Mononitrate ER [Imdur] 30 mg PO DAILY #30 tab.er.24h 10/30/20 12/08/20 Rx Nitroglycerin Sl Tabs [Nitrostat] 0.4 mg SUBLINGUAL Q5M PRN #25 tab 10/30/20 12/08/20 Rx Aspirin EC [Ecotrin] 325 mg PO DAILY 12/16/20 12/16/20 History Allergies Allergy/AdvReac Type Severity Reaction Status Date / Time No Known Allergies Allergy Verified 12/16/20 06:05 Physical Exam Vitals: Vital Signs Temp Pulse Resp BP Pulse Ox 12/22/20 10:00 101 H 21 123/72 100 12/22/20 09:00 114 H 21 122/79 97 12/22/20 08:47 106 H 12/22/20 08:32 105 H 12/22/20 08:00 97.8 F 111 H 28 H 122/79 97 12/22/20 07:45 28 H 12/22/20 07:00 105 H 13 107/89 12/22/20 06:00 99 23 116/71 97 12/22/20 05:00 92 21 123/73 12/22/20 04:00 97.8 F 104 H 25 H 121/73 97 12/22/20 03:00 105 H 25 H 110/66 12/22/20 02:00 84 20 106/68 96 12/22/20 01:00 90 22 12/22/20 00:00 97.9 F 85 23 100/81 96 12/21/20 23:00 90 22 110/68 97 12/21/20 22:00 102 H 25 H 131/81 97 12/21/20 21:00 98.2 F 115 H 22 131/81 97 12/21/20 20:00 120 H 32 H 120/84 12/21/20 19:26 108 H 12/21/20 19:16 104 H 12/21/20 19:00 115 H 31 H 116/67 12/21/20 18:00 110 H 24 115/84 12/21/20 17:00 22 119/83 12/21/20 16:00 112 H 25 H 109/66 93 L 12/21/20 15:23 94 12/21/20 15:14 100 12/21/20 15:00 101 H 20 121/64 12/21/20 14:00 88 25 H 110/72 12/21/20 13:00 95 28 H 105/62 12/21/20 12:00 98.2 F 99 31 H 108/69 94 L Intake and Output 12/21/20 12/22/20 12/22/20 22:59 06:59 14:59 Intake Total 120 Output Total 0 0 Balance 120 0 Intake: Oral 120 Output: Urine 0 0 Other: Voiding Method Toilet Toilet Toilet # Voids 1 1 0 # Bowel Movements 1 Weight 94.9 kg Skin: Atrophic, generally intact. General: Overweight build and comfortable appearance. Head: Normocephalic, atraumatic. Eyes: Symmetric. Pupils equal round. Ears: Symmetric. Hearing within normal limits. Mouth: Clear. Neck: Supple. Carotid without bruit. Cardiac: Regular rate and rhythm. Midsternal incision clean and dressed. Harness. Lungs: Clear anteriorly and posteriorly. Abdomen: Soft active nontender. Extremities: Normal tone. Neurological: Mental status: Alert, cooperative, pleasant. Cranial nerves: Symmetric facial tone and trapezius. Motor: Can actively elevate all 4 limbs off of Anita chair when supine. Sensation: Intact throughout. DTRs: Symmetric and equal throughout. Mobility: Requires physical assist for any mobility. Results CBC & Chem 7: 12/22/20 03:44 12/22/20 03:44 Labs: Abnormal Lab Results - Last 24 Hours (Table) 12/21/20 12/21/20 12/22/20 Range/Units 17:03 20:57 03:44 WBC 13.4 H (3.8-10.6) k/uL RBC 3.01 L (4.30-5.90) m/uL Hgb 9.5 L (13.0-17.5) gm/dL Hct 28.4 L (39.0-53.0) % RDW 15.8 H (11.5-15.5) % Sodium (137-145) mmol/L Carbon Dioxide (22-30) mmol/L BUN (9-20) mg/dL Glucose (74-99) mg/dL POC Glucose (mg/dL) 137 H 120 H (75-99) mg/dL Calcium (8.4-10.2) mg/dL Total Bilirubin (0.2-1.3) mg/dL ALT (4-49) U/L Total Protein (6.3-8.2) g/dL Albumin (3.5-5.0) g/dL 12/22/20 12/22/20 Range/Units 03:44 07:14 WBC (3.8-10.6) k/uL RBC (4.30-5.90) m/uL Hgb (13.0-17.5) gm/dL Hct (39.0-53.0) % RDW (11.5-15.5) % Sodium 135 L (137-145) mmol/L Carbon Dioxide 21 L (22-30) mmol/L BUN 26 H (9-20) mg/dL Glucose 162 H (74-99) mg/dL POC Glucose (mg/dL) 119 H (75-99) mg/dL Calcium 8.2 L (8.4-10.2) mg/dL Total Bilirubin 2.1 H (0.2-1.3) mg/dL ALT 56 H (4-49) U/L Total Protein 5.4 L (6.3-8.2) g/dL Albumin 3.2 L (3.5-5.0) g/dL Assessment and Plan Plan: Impression: 1. Cardiac debility with recent CABG. 2. Hypertension. 3. Dyslipidemia. 4. Atrial fibrillation. 5. BPH. 6. Diabetes. Comments and plan: At this time PT and OT are ongoing. Safety concerns noted currently and if would make decision today with except for inpatient rehab. We'll make decision when asked at appropriate time though. This was discussed with patient.
[2020-12-22 12:06] LABS: Glucose,Whole Blood 109 mg/dL (75-99)
[2020-12-22] MEDS: lisinopriL 5 MG TAB PO SCH (12:57)
--- NOTE | 2020-12-22 14:08 | PN ---
PROGRESS NOTE Mr. Valero is a 80-year-old gentleman who is admitted to the hospital for coronary artery bypass surgery. He is sitting up in a chair, feeling better. Denies chest pain or difficulty in breathing. On exam, heart rate is 106 beats per minute. Blood pressure is 122/79, respiratory is 20. Chest exam reveals diminished air entry at the bases. I do not hear any crackles or rhonchi. Heart exam reveals first and second heart sounds. No gallop. Abdomen: Soft. Exam of extremities did not reveal any edema. Peripheral pulses are felt. Labs show a hemoglobin of 9.5, platelet count is 242, potassium is 3.9. Creatinine is 0.97. ASSESSMENT: 1. Coronary artery disease status post coronary artery bypass grafting. The patient is making slow but steady recovery. 2. Persistent atrial fibrillation. PLAN: Patient will continue current medications. Might have to be transferred for inpatient rehab. KRZYSZTOF / GWEN: [id number] /
[2020-12-22 14:23] LABS: Eosinophils # (M) 0.13 k/uL (0-0.7); Neutrophils % (M) 71 %; Nucleated Red Blood Cells 2 /100 WBC (0-0); Total Cells Counted 200
[2020-12-22 14:24] LABS: Lymphocytes # (M) 3.01 k/uL (1.0-4.8); Monocytes # (M) 0.79 k/uL (0-1.0); Polychromasia Present; WBC 13.1 k/uL (3.8-10.6)
--- NOTE | 2020-12-22 15:32 | P.GSCN ---
History of Present Illness Consult date: 12/22/20 Reason for Consult: Urinary retention History of present illness: This is a 80 yo male with S/P CABG on 12/16/20. Urology is consulted for urinary retention of 1.1 L. He indicated he does have difficulty voiding at baseline, he takes over the counter supplement and indicated it helped him void. Denies any gross hematuria, dysuria or previous hx of urinary retention. He had temple catheter for his retention and temple is draining clear yellow urine Review of Systems - Constitutional Denies fever, Denies weight loss - Cardiovascular Denies chest pain, Denies shortness of breath - Respiratory Denies cough, Denies 7 - Gastrointestinal Reports as per HPI - Neurological Denies headaches, Denies syncope Past Medical History Past Medical History: Atrial Fibrillation, Diabetes Mellitus, Hyperlipidemia, Hypertension, Prostate Disorder History of Any Multi-Drug Resistant Organisms: None Reported Past Surgical History: Heart Catheterization With Stent, Tonsillectomy Additional Past Surgical History / Comment(s): pitutary tumor removed,heart cath x2 Past Anesthesia/Blood Transfusion Reactions: No Reported Reaction Additional Past Anesthesia/Blood Transfusion Reaction / Comm: no hx blood transfusion Date of Last Stent Placement:: 2005 Smoking Status: Never smoker - Past Family History Father Family Medical History: Congestive Heart Failure (CHF), Coronary Artery Disease (CAD), Myocardial Infarction ([place]) Additional Family Medical History / Comment(s): Premature coronary artery di sease, CABG Mother Additional Family Medical History / Comment(s): Depression, committed suicide Medications and Allergies Home Medications Medication Instructions Recorded Confirmed Type Ascorbic Acid [Vitamin C] 500 mg PO DAILY 04/29/15 12/08/20 History Cholecalciferol [Vitamin D3 (25 25 mcg PO DAILY 04/29/15 12/08/20 History Mcg = 1000 Iu)] Esomeprazole Magnesium [NexIUM] 40 mg PO HS 04/29/15 12/08/20 History Ezetimibe/Simvastatin [Vytorin 1 tab PO DAILY 04/29/15 12/08/20 History 10-40 mg Tablet] Warfarin [Coumadin] 2.5 mg PO SUMOTUTHSA 04/29/15 12/08/20 History atenoloL 25 mg PO DAILY 04/29/15 12/08/20 History lisinopriL [Zestril] 20 mg PO DAILY 04/29/15 12/08/20 History Calcium Carbonate [Calcium] 300 mg PO DAILY 04/30/16 12/08/20 History Diltiazem Cd [Cardizem CD] 120 mg PO DAILY 06/10/20 12/08/20 History Latanoprost/Pf [Latanoprost 0.005% 1 drop BOTH EYES HS 06/10/20 12/08/20 History Eye Drop] Montelukast [Singulair] 10 mg PO HS 06/10/20 12/08/20 History Warfarin [Coumadin] 5 mg PO WEFR 06/10/20 12/08/20 History Aspirin 81 mg PO DAILY chew 10/30/20 12/08/20 Rx Isosorbide Mononitrate ER [Imdur] 30 mg PO DAILY #30 tab.er.24h 10/30/20 12/08/20 Rx Nitroglycerin Sl Tabs [Nitrostat] 0.4 mg SUBLINGUAL Q5M PRN #25 tab 10/30/20 12/08/20 Rx Aspirin EC [Ecotrin] 325 mg PO DAILY 12/16/20 12/16/20 History Allergies Allergy/AdvReac Type Severity Reaction Status Date / Time No Known Allergies Allergy Verified 12/16/20 06:05 Surgical - Exam Vital Signs Temp Pulse Resp BP Pulse Ox 97.1 F L 90 15 174/98 100 12/16/20 06:34 12/16/20 06:34 12/16/20 06:34 12/16/20 06:34 12/16/20 06:34 - General no distress, no pain - Eyes PERRL, normal ocular movement - ENT normal nares, normal mucosa - Respiratory normal expansion, normal respiratory effort - Psychiatric oriented to time, oriented to person, oriented to place Results - Labs 12/22/20 03:44 12/22/20 03:44 Abnormal Lab Results - Last 24 Hours (Table) 12/21/20 12/21/20 12/22/20 Range/Units 17:03 20:57 03:44 WBC 13.1 H (3.8-10.6) k/uL RBC 3.01 L (4.30-5.90) m/uL Hgb 9.5 L (13.0-17.5) gm/dL Hct 28.4 L (39.0-53.0) % RDW 15.8 H (11.5-15.5) % Neutrophils # (Manual) 9.30 H (1.3-7.7) k/uL Nucleated RBCs 2 H (0-0) /100 WBC Sodium (137-145) mmol/L Carbon Dioxide (22-30) mmol/L BUN (9-20) mg/dL Glucose (74-99) mg/dL POC Glucose (mg/dL) 137 H 120 H (75-99) mg/dL Calcium (8.4-10.2) mg/dL Total Bilirubin (0.2-1.3) mg/dL ALT (4-49) U/L Total Protein (6.3-8.2) g/dL Albumin (3.5-5.0) g/dL 12/22/20 12/22/20 12/22/20 Range/Units 03:44 07:14 12:04 WBC (3.8-10.6) k/uL RBC (4.30-5.90) m/uL Hgb (13.0-17.5) gm/dL Hct (39.0-53.0) % RDW (11.5-15.5) % Neutrophils # (Manual) (1.3-7.7) k/uL Nucleated RBCs (0-0) /100 WBC Sodium 135 L (137-145) mmol/L Carbon Dioxide 21 L (22-30) mmol/L BUN 26 H (9-20) mg/dL Glucose 162 H (74-99) mg/dL POC Glucose (mg/dL) 119 H 109 H (75-99) mg/dL Calcium 8.2 L (8.4-10.2) mg/dL Total Bilirubin 2.1 H (0.2-1.3) mg/dL ALT 56 H (4-49) U/L Total Protein 5.4 L (6.3-8.2) g/dL Albumin 3.2 L (3.5-5.0) g/dL Diabetes panel 12/22/20 Range/Units 03:44 Sodium 135 L (137-145) mmol/L Potassium 3.9 (3.5-5.1) mmol/L Chloride 104 (98-107) mmol/L Carbon Dioxide 21 L (22-30) mmol/L BUN 26 H (9-20) mg/dL Creatinine 0.97 (0.66-1.25) mg/dL Glucose 162 H (74-99) mg/dL Calcium 8.2 L (8.4-10.2) mg/dL AST 37 (17-59) U/L ALT 56 H (4-49) U/L Alkaline Phosphatase 96 (38-126) U/L Total Protein 5.4 L (6.3-8.2) g/dL Albumin 3.2 L (3.5-5.0) g/dL Calcium panel 12/22/20 Range/Units 03:44 Calcium 8.2 L (8.4-10.2) mg/dL Albumin 3.2 L (3.5-5.0) g/dL Pituitary panel 12/22/20 Range/Units 03:44 Sodium 135 L (137-145) mmol/L Potassium 3.9 (3.5-5.1) mmol/L Chloride 104 (98-107) mmol/L Carbon Dioxide 21 L (22-30) mmol/L BUN 26 H (9-20) mg/dL Creatinine 0.97 (0.66-1.25) mg/dL Glucose 162 H (74-99) mg/dL Calcium 8.2 L (8.4-10.2) mg/dL Adrenal panel 12/22/20 Range/Units 03:44 Sodium 135 L (137-145) mmol/L Potassium 3.9 (3.5-5.1) mmol/L Chloride 104 (98-107) mmol/L Carbon Dioxide 21 L (22-30) mmol/L BUN 26 H (9-20) mg/dL Creatinine 0.97 (0.66-1.25) mg/dL Glucose 162 H (74-99) mg/dL Calcium 8.2 L (8.4-10.2) mg/dL Total Bilirubin 2.1 H (0.2-1.3) mg/dL AST 37 (17-59) U/L ALT 56 H (4-49) U/L Alkaline Phosphatase 96 (38-126) U/L Total Protein 5.4 L (6.3-8.2) g/dL Albumin 3.2 L (3.5-5.0) g/dL Assessment and Plan Assessment: 80 yo admitted S/P CABG on 12/16, Urology is consulted for 1.1 L urinary retention -Recommend keep temple in place for one week,can have TOV in rehab, if able to void can f/u PRN with urology. if still unable to void then advise to f/u with us -Continue flomax
--- NOTE | 2020-12-22 15:43 | P.PN ---
Subjective Progress Note Date: 12/22/20 HISTORY OF PRESENT ILLNESS This is a 80-year-old male patient of Dr. Campos and Dr. Mullins with past medical history of chronic persistent atrial fibrillation, diabetes mellitus type 2, hypertension, hyperlipidemia, history of pituitary tumor resection, obstructive sleep apnea on BiPAP, gastroesophageal reflux disease, benign prostatic hypertrophy. He should also has history of coronary artery disease status post PCI to the LAD in 2005, heart catheterization in October 2020 found severe triple-vessel disease, subsequently admitted to the hospital for elective coronary artery bypass grafting 12/16 MORAN to LAD, left radial artery from the aorta to the first obtuse marginal artery, reverse saphenous vein graft from the aorta to the second diagonal artery, reverse saphenous vein graft from the aorta to the posterior descending artery, endoscopic harvesting of the left radial artery, endoscopic harvesting of the left greater saphenous vein from ankle to the groin, exclusion of the left atrial appendage. Patient is seen today in the intensive care unit. He remains intubated and on mechanical ventilation but has done well with sedation holiday and is expected to be extubated this morning. Patient's is at the bedside. He is currently on insulin drip at 3 units p er hour. Vent settings are tidal volume 500, FiO2 50 and PEEP of 5. net developer with wcf is atrial fibrillation rate controlled. 12/18: Patient has been successfully extubated and is found today sitting in a chair in the intensive care unit. He states his pain is controlled. He denies having any abdominal pain and no diarrhea. He is having good urine output of 35-45 mL per hour. Blood sugars are running between 120 and 150. Patient is on insulin drip and will plan to see transition to Levemir 12 units tonight along with NovoLog scale before meals and at bedtime. Patient is followed by multiple consultants. Patient's and daughter are at bedside. 12/19: Patient had some delirium last night, he is not sleeping silently during the night and drowsy during the day with naps. He is utilizing his CPAP which is been brought from home. Patient is not very motivated to participate with P T. Ensure will be added as he is not eating well. He is complaining of pain in the mid abdomen. No bowel movement since admission. Patient will have the clock suppository today. He has been transitioned to Levemir and NovoLog scale and blood sugars have been stable running 115-130. He has been ordered for a dose of IV Lasix today. Pacer wires have been removed mediastinal and left chest tube in place. Blood work reveals WBC 16.2, hemoglobin 8.9, platelet count 116. Sodium 137, potassium 4.2, chloride 111, CO2 20, BUN 25 creatinine 0.84. Total bilirubin 1.3, AST 104, ALT 117, alkaline phosphatase 54. Patient has been afebrile, heart rate in the 70s and 80s, blood pressure 115/51, pulse ox 95% on room air. net developer with wcf is a sinus rhythm. 12/20: Patient is found sitting up in the chair in minimal distress, complaining of shortness of breath. Patient remains in the ICU. He was up ambulating within the room. Patient has more motivation compared to yesterday. Patient has no other complaints or concerns. His Lasix was held. However he continues to have edema to lower extremities. Jade BC 16.3, hemoglobin 9.6, platelet count 171, sodium 139, potassium 4.0, BUN 34, creatinine 0.82. Patient remained afebrile, bobbin disker shows sinus rhythm with a heart rate of 72, blood pressure 129/72 respirations 11, pulse ox 97% on room air. 12/21: Patient is found sitting up in the chair in no acute distress, no complaints of shortness of breath or chest pain today. Patient remains in the ICU. He has been ambulating in the room. Patient's activity level and motiva tion continues to increase. No other complaints or concerns noted. Patient remains afebrile, heart rate 82, respirations 25, blood pressure 93/70, 98% on room air. Jade BC 13.9, hemoglobin 9.3, platelets 212, potassium 3.6, BUN 31, creatinine 0.89. 12/22: Patient is seen today in intensive care unit. Patient is resting in chair. He has been seen this morning by Dr. Hansen for possible inpatient rehab. Patient has also been seen by urology. Barrow catheter required replacement with recommendations from urology to maintain this for one week and then start voiding trial in rehab. Patient is able to void then patient to follow-up as needed, if unable to void then follow-up and continue Flomax. Cardiology continues to follow. REVIEW OF SYSTEMS Constitutional: No fever, no chills, no night sweats. No weight change. No weakness, reports fatigue reports lethargy. Reports daytime sleepiness. EENT: No headache. No blurred vision or double vision, no loss of vision. No loss of Hearing, no ringing in the ears, no dizziness. No nasal drainage or congestion. No epistaxis. No sore throat. Lungs: No shortness of breath, cough, no sputum production. No wheezing. Cardiovascular: No chest pain, no lower extremity edema. No palpitations. No paroxysmal nocturnal dyspnea. No orthopnea. No lightheadedness or dizziness. No syncopal episodes. Abdominal: No abdominal pain. No nausea, vomiting. No diarrhea. No constipation. No bloody or tarry stools.. No loss of appetite. Genitourinary: No dysuria, increased frequency, urgency. Reported urinary retention. Musculoskeletal: No myalgias. No muscle weakness, no gait dysfunction, no frequent falls. No back pain. No neck pain. Integumentary: No wounds, no lesions. No rash or pruritus. No unusual bruising. No change in hair or nails. Neurologic: No aphasia. No facial droop. Reports during the night change in mentation. No head injury. No headache. No paralysis. No paresthesia. Psychiatric: No depression. No anxiety. Endocrine: No abnormal blood sugars. PHYSICAL EXAMINATION Gen: This is a 80-year-old male. He is resting in a chair in the intensive care unit. Family members are at bedside. Patient does not appear to be in any acute distress. HEENT: Head is atraumatic, normocephalic. Pupils equal, round. Sclerae is anicteric. NECK: Supple. No JVD. No lymphadenopathy. No thyromegaly. LUNGS: Diminished bilaterally. No wheezes or rhonchi. No intercostal retractions. HEART: Irregular rate and rhythm. No murmur. net developer with wcf sinus rhythm. ABDOMEN: Soft. Bowel sounds are present. No masses. No tenderness. Barrow catheter in place. EXTREMITIES: 1+ pedal edema. No calf tenderness. NEUROLOGICAL: Patient is awakens easily, answers questions appropriately, generalized weakness. No neuro deficits noted. ASSESSMENT AND PLAN 1. Coronary artery disease status post 4 vessel CABG 12/16. Continue current management per cardio thoracic surgery.. Continue aspirin 81 mg daily, Lipitor 40 mg daily, Lopressor 75 mg twice daily 2. Chronic persistent atrial fibrillation. Continue Lopressor, Cardizem CD 120 mg daily. 3. Diabetes mellitus type 2. Insulin drip transitioned to Levemir 12 units tonight with NovoLog scale before meals and at bedtime, blood sugar is controlled 4. Hypertension. Continue Lopressor 75 mg twice daily, lisinopril 5 mg daily. 5. Hyperlipidemia. Continue Lipitor 40 mg daily 6. History of pituitary gland resection. 7. Obstructive sleep apnea on BiPAP. 8. Gastroesophageal reflux disease. 9. Benign prostatic hypertrophy with urinary retention. Replacement of Barrow catheter and continue Flomax, urology consult appreciated 10. Acute delirium possibly related to ICU setting, medication effect, lack of sleep. Continue to reorient. DISCHARGE PLAN Possible inpatient rehab Impression and plan of care have been directed as dictated by the signing physician. Erica Alfredo nurse practitioner acting as scribe for signing physic dannie. Objective - Vital Signs Vital signs: Vital Signs Temp 97.8 F 12/22/20 08:00 Pulse 101 H 12/22/20 10:00 Resp 21 12/22/20 10:00 BP 123/72 12/22/20 10:00 Pulse Ox 100 12/22/20 10:00 Intake & Output 12/21/20 12/22/20 12/22/20 18:59 06:59 18:59 Intake Total 480 Output Total 0 0 0 Balance 480 0 0 Weight 94.9 kg Intake: Oral 480 Output: Urine 0 0 0 Other: Voiding Method Toilet Toilet Toilet # Voids 1 1 0 # Bowel Movements 1 ABP, PAP, CO, CI - Last Documented Arterial Blood Pressure 115/51 Pulmonary Artery Pressure 32/17 Cardiac Output 4.4 Cardiac Index 2.2 - Labs CBC & Chem 7: 12/22/20 03:44 12/22/20 03:44 Labs: Abnormal Lab Results - Last 24 Hours (Table) 12/21/20 12/21/20 12/22/20 Range/Units 17:03 20:57 03:44 WBC 13.4 H (3.8-10.6) k/uL RBC 3.01 L (4.30-5.90) m/uL Hgb 9.5 L (13.0-17.5) gm/dL Hct 28.4 L (39.0-53.0) % RDW 15.8 H (11.5-15.5) % Sodium (137-145) mmol/L Carbon Dioxide (22-30) mmol/L BUN (9-20) mg/dL Glucose (74-99) mg/dL POC Glucose (mg/dL) 137 H 120 H (75-99) mg/dL Calcium (8.4-10.2) mg/dL Total Bilirubin (0.2-1.3) mg/dL ALT (4-49) U/L Total Protein (6.3-8.2) g/dL Albumin (3.5-5.0) g/dL 12/22/20 12/22/20 Range/Units 03:44 07:14 WBC (3.8-10.6) k/uL RBC (4.30-5.90) m/uL Hgb (13.0-17.5) gm/dL Hct (39.0-53.0) % RDW (11.5-15.5) % Sodium 135 L (137-145) mmol/L Carbon Dioxide 21 L (22-30) mmol/L BUN 26 H (9-20) mg/dL Glucose 162 H (74-99) mg/dL POC Glucose (mg/dL) 119 H (75-99) mg/dL Calcium 8.2 L (8.4-10.2) mg/dL Total Bilirubin 2.1 H (0.2-1.3) mg/dL ALT 56 H (4-49) U/L Total Protein 5.4 L (6.3-8.2) g/dL Albumin 3.2 L (3.5-5.0) g/dL
[2020-12-22] MEDS ORDERED: POTASSIUM CHLORIDE ER 10 MEQ TAB.ER.PRT PO STA (16:17)
[2020-12-22 16:50] LABS: Glucose,Whole Blood 106 mg/dL (75-99)
[2020-12-22 20:34] LABS: Glucose,Whole Blood 112 mg/dL (75-99)
[2020-12-22] MEDS: MONTELUKAST 10 MG TAB PO SCH (20:38)
[2020-12-22] MEDS: LATANOPROST 0.005% OPHTH DROPS 2.5 ML BTL BOTH EYES SCH (20:38)
[2020-12-22] MEDS: INSULIN DETEMIR (LEVEMIR) 100 UNIT/ML SYR SQ SCH (20:38)
[2020-12-22] MEDS: SENNOSIDES-DOCUSATE SODIUM 1 EACH TAB PO SCH (20:38)
[2020-12-23 05:06] LABS: Anisocytosis Slight; HCT 27.6 % (39.0-53.0); HGB 8.9 gm/dL (13.0-17.5); Hypochromasia Slight; MCH 30.8 pg (25.0-35.0); MCHC 32.4 g/dL (31.0-37.0); MCV 95.1 fL (80.0-100.0); Macrocytosis Slight; Mean Platelet Volume 7.8; Platelet Count 265 k/uL (150-450); Poikilocytosis Slight; RDW 16.3 % (11.5-15.5); WBC 14.6 k/uL (3.8-10.6)
[2020-12-23 05:23] LABS: ALT 44 U/L (4-49); AST 32 U/L (17-59); African American GFR (CKD) >90 (>60 ml/min/1.73 sqM); Albumin 2.9 g/dL (3.5-5.0); Alkaline Phosphatase 89 U/L (38-126); Anion Gap 7 mmol/L; Blood Urea Nitrogen 25 mg/dL (9-20); Carbon Dioxide 24 mmol/L (22-30); Chloride 102 mmol/L (98-107); Glucose 113 mg/dL (74-99); Non-African American GFR(CKD) 82 (>60 ml/min/1.73 sqM); Potassium 4.1 mmol/L (3.5-5.1); Sodium 133 mmol/L (137-145); Total Bilirubin 1.8 mg/dL (0.2-1.3); Total Protein 5.2 g/dL (6.3-8.2)
--- NOTE | 2020-12-23 05:51 | XR ---
EXAMINATION TYPE: XR chest 1V portable DATE OF EXAM: 12/23/2020 CLINICAL HISTORY: Difficulty breathing progress study. Postoperative CABG. TECHNIQUE: Single AP portable upright view of the chest is obtained. COMPARISON: Chest x-ray from one day earlier and older studies. FINDINGS: Overlying sternal wires and mediastinal clips along with left atrial appendage clip are al l redemonstrated. Persistent cardiomegaly with central vascular congestion and small bilateral pleural effusions. Persi stent low lung volumes. Osseous structures are demineralized. IMPRESSION: Low lung volumes and cardiomegaly with central vascular congestion and small bilateral pl eural effusions are all redemonstrated. No significant change from one day earlier.
[2020-12-23 05:53] LABS: Anisocytosis (M) Present; Eosinophils # (M) 0.44 k/uL (0-0.7); Lymphocytes # (M) 1.61 k/uL (1.0-4.8); Monocytes # (M) 0.73 k/uL (0-1.0); Neutrophils # (M) 11.83 k/uL (1.3-7.7); Neutrophils % (M) 81 %; Nucleated Red Blood Cells 0 /100 WBC (0-0); Polychromasia Present; Total Cells Counted 100
[2020-12-23 06:55] LABS: Glucose,Whole Blood 116 mg/dL (75-99)
[2020-12-23] MEDS: INSULIN ASPART (NovoLOG) 100 UNIT/ML VIAL SQ SCH ×4 (07:19→20:28)
[2020-12-23] MEDS: IPRATROPIUM-ALBUTEROL 3 ML NEB INHALATION SCH ×4 (07:51→19:28)
[2020-12-23] MEDS: TAMSULOSIN 0.4 MG CAP.ER.24H PO SCH (08:07)
[2020-12-23] MEDS: APIXABAN 5 MG TAB PO SCH ×2 (08:07→20:30)
[2020-12-23] MEDS: ASPIRIN 81 MG PO SCH (08:09)
[2020-12-23] MEDS: ASCORBIC ACID 500 MG TAB PO SCH (08:09)
[2020-12-23] MEDS: CHOLECALCIFEROL 25 MCG (1000 IU) TABLET PO SCH (08:09)
[2020-12-23] MEDS: PANTOPRAZOLE 40 MG/10 ML VIAL IVP SCH ×2 (08:09→20:31)
[2020-12-23] MEDS: DILTIAZEM CD 120 MG CAP.ER.24H PO SCH (08:09)
[2020-12-23] MEDS: METOPROLOL TARTRATE 25 MG TAB PO SCH ×2 (08:09→20:29)
[2020-12-23] MEDS: ATORVASTATIN 40 MG TAB PO SCH (08:09)
[2020-12-23] MEDS ORDERED: POTASSIUM CHLORIDE ER 10 MEQ TAB.ER.PRT PO STA (08:44)
[2020-12-23] MEDS ORDERED: FUROSEMIDE 10 MG/ML 2 ML VIAL IV ONE ×2 (08:44→16:00)
--- NOTE | 2020-12-23 09:02 | P.PN ---
Subjective Progress Note Date: 12/23/20 Principal diagnosis: Triple-vessel coronary artery disease. Past medical history significant for coronary artery disease with PCI to the LAD in 2005, chronic atrial fibrillation on Coumadin for anticoagulation, preserved left ventricular function, hypertension, hyperlipidemia, diet controlled diabetes mellitus, obstructive sleep apnea on home CPAP use, previous pituitary tumor, benign prostatic hypertrophy, lifetime nonsmoker smoker, daily wine consumption, and family history of premature coronary artery disease with father diagnosed before the age of 55. POD #7 quadruple coronary artery bypass grafting using the left internal mammary artery to the left anterior descending coronary artery, left radial artery from the aorta to the first obtuse marginal coronary artery, a reverse greater saphenous vein graft from the aorta to the second diagonal coronary artery, a reverse greater saphenous vein graft from the aorta to the posterior descending coronary artery, endoscopic harvesting of the left radial artery, endoscopic harvesting of the left greater saphenous vein from ankle to the groin, exclusion of the left atrial appendage using a 40 mm AtriClip, exploratory aortotomy, intraoperative transesophageal echocardiogram and epi-aortic scanning, intraoperative graft flow measurements using the [employer] system. Postoperative acute blood loss anemia and thrombocytopenia, expected given hemodilution and cardiopulmonary bypass pump as well as chronic Coumadin use. Urinary retention, expected due to his history of BPH The patient was seen in follow-up today 12/23/2020 at his bedside in the intensive care unit. Currently sitting up to the bedside chair, is awake, alert and oriented 3 and is in no acute distress. The patient reports he continues to feel a little stronger each day. Denies any complaints of pain or shortness of breath at this time. Remains hemodynamically stable and is currently on no inotropic or pressor support. The patient did experience a post void residual yesterday of around 800 mL, subsequently a Barrow catheter was placed with 1.1 L of urine drained. The patient continues on Flomax 0.4 mg by mouth daily. The patient was seen by urology yesterday with recommendations to leave his Barrow catheter in 1 week and remove after 1 week for a voiding trial. Bedside telemetry showing atrial fibrillation heart rate 92 BPM. Oxygen saturations are 97% on room air and he is achieving 1500 mL on his incentive spirometry. The katey adams reports he has been up ambulating this morning with standby assistance from nursing staff and he made it from his bedside to the nurse's station. The patient was also seen by Dr. Hansen yesterday for evaluation for inpatient rehab. Lasix 20 mg IV 2 yesterday was given with good diuresis. Laboratory results this morning show a WBC count 14.6, hemoglobin 8.9, platelets 265, BUN 25, and creatinine 0.89. He has been afebrile the last 24 hours. No new concerns. Objective - Vital Signs Vital signs: Vital Signs Temp 96.8 F L 12/23/20 08:00 Pulse 110 H 12/23/20 08:00 Resp 23 12/23/20 08:00 BP 113/68 12/23/20 08:00 Pulse Ox 98 12/23/20 08:00 Intake & Output 12/22/20 12/23/20 12/23/20 18:59 06:59 18:59 Intake Total 200 50 Output Total 2014 830 45 Balance -1815 -830 5 Weight 94 kg Intake: Oral 200 50 Output: Urine 2014 830 45 Other: Voiding Method Indwelling Catheter Indwelling Catheter # Voids 0 ABP, PAP, CO, CI - Last Documented Arterial Blood Pressure 115/51 Pulmonary Artery Pressure 32/17 Cardiac Output 4.4 Cardiac Index 2.2 - Exam CONSTITUTIONAL: Sitting up to the bedside chair in the intensive care unit, appears comfortable, cooperative, no apparent acute distress. HEENT: Neck is supple, no JVD, no lymphadenopathy. RESPIRATORY: Lungs sounds essentially clear throughout, diminished to his bilateral bases with few scattered crackles to his bilateral bases. Respirations are symmetrical and nonlabored. Currently on room air with oxygen saturations 97%. Able to achieve 1500 mL on his incentive spirometry. Strong cough. CARDIOVASCULAR: Irregular rhythm and controlled rate. S1 and S2 present, negative for S3, or gallop. Sternum is stable. Palpable peripheral pulses bilaterally, +1 edema to his bilateral lower extremities. No calf pain or tenderness noted. Heart hugger in place with patient demonstrating appropriate use. Knee-high HA hose and sequential compression devices in place to his bilateral lower extremities. GASTROINTESTINAL: Abdomen soft, nontender, nondistended. Active bowel sounds present 4 quadrants. Tolerating diet. Passing flatus. No guarding or rigidity. GENITOURINARY: Barrow catheter for accurate I&O and urinary retention. 380 mL of urine output in the last 8 hours. INTEGUMENTARY: Skin is warm and dry with no evidence of clubbing or cyanosis. Midline sternal incision clean dry and well approximated, covered with dry intact dressing. Left lower extremity EVH sites well approximated without redness or drainage. Left arm radial artery harvest sites clean, dry and approximated. No drainage or redness is present. NEUROLOGIC: Cranial nerves II through XII intact. No focal deficits. MUSKULOSKELETAL: Able to move all extremities, strength equal bilaterally, generalized weakness. PSYCHIATRIC: Alert and oriented to person place and time, appropriate affect, intact judgment and insight. - Allied health notes Allied health notes reviewed: nursing - Labs CBC & Chem 7: 12/23/20 04:26 12/23/20 04:26 Labs: Abnormal Lab Results - Last 24 Hours (Table) 12/22/20 12/22/20 12/22/20 Range/Units 03:44 12:04 16:48 WBC 13.1 H (3.8-10.6) k/uL RBC (4.30-5.90) m/uL Hgb (13.0-17.5) gm/dL Hct (39.0-53.0) % RDW (11.5-15.5) % Neutrophils # (Manual) 9.30 H (1.3-7.7) k/uL Nucleated RBCs 2 H (0-0) /100 WBC Sodium (137-145) mmol/L BUN (9-20) mg/dL Glucose (74-99) mg/dL POC Glucose (mg/dL) 109 H 106 H (75-99) mg/dL Calcium (8.4-10.2) mg/dL Total Bilirubin (0.2-1.3) mg/dL Total Protein (6.3-8.2) g/dL Albumin (3.5-5.0) g/dL 12/22/20 12/23/20 12/23/20 Range/Units 20:33 04:26 04:26 WBC 14.6 H (3.8-10.6) k/uL RBC 2.90 L (4.30-5.90) m/uL Hgb 8.9 L (13.0-17.5) gm/dL Hct 27.6 L (39.0-53.0) % RDW 16.3 H (11.5-15.5) % Neutrophils # (Manual) 11.83 H (1.3-7.7) k/uL Nucleated RBCs (0-0) /100 WBC Sodium 133 L (137-145) mmol/L BUN 25 H (9-20) mg/dL Glucose 113 H (74-99) mg/dL POC Glucose (mg/dL) 112 H (75-99) mg/dL Calcium 8.0 L (8.4-10.2) mg/dL Total Bilirubin 1.8 H (0.2-1.3) mg/dL Total Protein 5.2 L (6.3-8.2) g/dL Albumin 2.9 L (3.5-5.0) g/dL 12/23/20 Range/Units 06:53 WBC (3.8-10.6) k/uL RBC (4.30-5.90) m/uL Hgb (13.0-17.5) gm/dL Hct (39.0-53.0) % RDW (11.5-15.5) % Neutrophils # (Manual) (1.3-7.7) k/uL Nucleated RBCs (0-0) /100 WBC Sodium (137-145) mmol/L BUN (9-20) mg/dL Glucose (74-99) mg/dL POC Glucose (mg/dL) 116 H (75-99) mg/dL Calcium (8.4-10.2) mg/dL Total Bilirubin (0.2-1.3) mg/dL Total Protein (6.3-8.2) g/dL Albumin (3.5-5.0) g/dL - Imaging and Cardiology Chest x-ray: report reviewed, image reviewed Assessment and Plan Assessment: 1. Triple-vessel coronary artery disease, status post four-vessel CABG 2. Preserved left ventricular function 3. History of coronary artery disease with PCI to the LAD in 2005 4. Chronic atrial fibrillation on Coumadin for anticoagulation, status post exclusion of the left atrial appendage 5. History of hypertension 6. Hyperlipidemia, treated, cholesterol 123, LDL 153, triglycerides 181 7. Diet controlled diabetes mellitus, preoperative hemoglobin A1c 6.2% 8. Obstructive sleep apnea on home CPAP use 9. Previous pituitary tumor 10. Lifetime nonsmoker, preoperative FEV1 91% of predicted 11. Daily wine consumption 13. Family history of premature coronary artery disease with father diagnosed before the age of 55. 14. Benign prostatic hypertrophy 15. Postoperative acute blood loss anemia and thrombocytopenia, expected Plan: 1. Continue low-dose aspirin, statin, and beta junito. Will increase metoprolol tartrate as tolerated. Metoprolol tartrate was increased to 75 mg by mouth twice a day yesterday 12/22/2020. Continue lisinopril for afterload reduction. 2. Continue cardizem for radial artery spasm prophylaxis, afib heart rate control. Please do not discontinue the Cardizem without checking with cardiothoracic surgery service first please. 3. Bronchodilators per pulmonology management. Encourage incentive spirometer use 10 times every hour while awake. 4. Increase activity, ambulate as tolerated, PT/OT/cardiac rehab following. 5. Will monitor daily labs and chest x-rays. Electrolyte replacement per protocol. 6. GI/DVT prophylaxis. 7. Insulin management per primary care service. The patient is a diet- controlled diabetic, preoperative hemoglobin A1c 6.2%, does need tight blood sugar control to promote sternal union and prevent infection. 8. Pain control with current medication regimen. Continue to avoid narcotics. 9. Continue Flomax 0.4 mg by mouth daily for urine retention. Continue Barrow catheter per urology recommendations 1 week, after 1 week to remove for voiding trial. Dr. Vega's consult noted and appreciated. 10. Continue to record strict and accurate I's and O's. Continue daily weights. 11. Continue Eliquis 5 mg by mouth twice a day for anticoagulation. 12. Lasix 20 mg IV 1 now. Potassium chloride ER 10 mEq 1 now by mouth. 13. Dr. Hansen's consult noted and appreciated. 14. Anticipate discharge to inpatient rehab at [facility] within the next 24-48 hours. 15. More recommendations to follow based on patient's clinical course. Time with Patient: Greater than 30
[2020-12-23 09:27] LABS: Appearance,Urine Cloudy (Clear); Bilirubin,Urine Negative (Negative); Blood,Urine Moderate (Negative); Color,Urine Yellow; Glucose,Urine (UA) Negative (Negative); Ketones,Urine Negative (Negative); Leukocyte Esterase,Urine Large (Negative); Mucus,Urine Many /hpf; Nitrite,Urine Negative (Negative); PH, Urine 5.5 (5.0-8.0); Protein,Urine 1+ (Negative); RBC,Urine 38 /hpf (0-5); Specific Gravity,Urine 1.022 (1.001-1.035); Squamous Epithelial Cell,Urine <1 /hpf (0-4); WBC,Urine 44 /hpf (0-5)
--- NOTE | 2020-12-23 09:34 | P.PN ---
Subjective Progress Note Date: 12/23/20 Principal diagnosis: Coronary artery disease This is a 80-year-old male patient with a history of atrial fibrillation, hyperlipidemia, hypertension, diabetes mellitus. Lifelong nonsmoker. who was found to have severe triple-vessel coronary artery disease with a totally occluded mid LAD and good collaterals and normal ejection fraction. He had been seen and evaluated by Dr. Edmond who recommended coronary artery bypass grafting. He presented here yesterday for elective surgery. He had undergone quadruple coronary artery bypass grafting utilizing a MORAN to the LAD, left radial artery to the first obtuse marginal artery, reverse saphenous vein graft to the second diagonal artery and posterior descending artery. He remains intubated and on the mechanical ventilator this morning. Current settings are assist-control mode at a rate of 12, tidal volume 500, FiO2 50% and a PEEP of 5. Morning blood gases revealed a P O2 of 76, pCO2 39, pH 7.43. He was found to the cardiac output of 3.5. Cardiac index of 1.8. Mediastinal chest tube with 1.3 L output in the past 24 hours. Left chest tube 900 mL output. He has a right internal jugular Avery-Sara catheter in place. Right arterial line in place. Left radial harvest site dressing dry and intact. ADOLFO in place. He is currently on a milrinone drip at 0.2 mg/kg/m. Insulin drip at 3 units per hour. Norepinephrine at 0.05 mcg/kg/m. Marcus-Synephrine at 0.8 mcg/kg/m. Propofol at 25 mcg/kg/m. 0.9 normal saline at 50 MLS per hour. He did have episode of atrial fibrillation with rapid ventricular response and received digoxin IV. He also has received albumin. 2 units of fresh frozen plasma. One unit of packed red blood cells. White count 9.3. Hemoglobin 8.6. Platelet count 97,000. INR 1.2. Fibrinogen 216. Sodium 139. Potassium 4.0. Bicarb 25. Creatinine 0.81. Glucose 132. Total protein 4.7. Albumin 3.0. Chest x-ray reveals cardiomegaly and chronic parenchymal changes with a small left pleural effusion and left greater than right bibasilar acute atelectasis. Mediastinal and left chest tubes in place. No pneumothorax seen. The patient is seen today 12/18/2020 in follow-up in intensive care unit. He was successfully extubated yesterday at approximately 12:45 PM. He is awake and alert in no acute distress. He is on 5 L nasal cannula and maintaining O2 saturations in the 90s. Chest x-ray reveals interval extubation. Cardiomegaly and chronic parenchymal changes with small left greater than right bibasilar acute atelectasis. Left-sided chest tube in place without evidence of pneumothorax. Mediastinal tubes in place. Right internal jugular catheter remains in place. Right radial arterial blood glucose. Current AV pacer wires in place. Remains in atrial fibrillation with controlled ventricular response. Cardiac output 4.1. Cardiac index 2.1. PA pressures 29/12. CVP is 6. He remains on milrinone at 0.1 mg/kg per minute. Insulin drip at 3 units an hour. 0.9 normal saline at 30 MLS per hour. He is pulling approximate 500-750 MLS on the incentive spirometer. Currently up in a recliner at the bedside. Heparin for DVT prophylaxis. The patient is seen today 12/19/2020 in follow-up in the intensive care unit. Postoperative day #3. He is currently sitting up in a chair at the bedside. Awake and alert in no acute distress. He was having some periods of confusion. support manager is at the bedside. He is maintaining O2 saturations in the mid 90s on room air. He is off most drips. He is still on insulin at 5 units per hour. 0.9#20 MLS per hour. Mediastinal chest tube has remain in place with 120 ML's house and 60 ML's of the left chest. He is remaining in sinus rhythm. Pacer wires have been removed. Needs increased encouragement regarding use the incentive spirometer. Chest x-ray reveals postoperative changes with small layering pleural effusions and some improvement in the atelectasis at the left base. If he did require 2 units of fresh frozen plasma one unit of red blood cells this admission. White count 16.2. Hemoglobin 8.9. Platelets 116. Sodium 137. Potassium 4.2. Bicarb 20. Creatinine 0.84. AST 104. ALT 114. Heparin for DVT prophylaxis. The patient is seen today 12/23/2020 in follow-up in the intensive care unit. He is currently sitting up in a chair at the bedside. Awake and alert in no acute distress. Maintaining good O2 saturations in the 90s on room air. No IV fluids. Chest x-ray reveals low lung volumes and cardiomegaly with central venous congestion and small bilateral pleural effusions. No significant change compared to yesterday. He needs increased encouragement regarding the use of th e incentive spirometer and cough and deep breathing exercises. White count 14.6. Hemoglobin 8.9. Sodium 133. Potassium 4.1. Bicarb 24. Creatinine 0.89. Glucose 113. Urinalysis with moderate blood, increased WBCs. He was given 20 mg of Lasix IVP 1 this morning. Remains on bronchodilators. Anticoagulated with Eliquis. He is status post 2 units of fresh was a plasma one unit of packed red blood cells this admission. Plan is for inpatient rehabilitation post discharge. Objective - Vital Signs Vital signs: Vital Signs Temp 96.8 F L 12/23/20 08:00 Pulse 106 H 12/23/20 09:00 Resp 13 12/23/20 09:00 BP 108/75 12/23/20 09:00 Pulse Ox 99 12/23/20 09:00 Intake & Output 12/22/20 12/23/20 12/23/20 18:59 06:59 18:59 Intake Total 200 50 Output Total 2014 830 45 Balance -1815 -830 5 Weight 94 kg Intake: Oral 200 50 Output: Urine 2014 830 45 Other: Voiding Method Indwelling Catheter Indwelling Catheter Indwelling Catheter # Voids 0 ABP, PAP, CO, CI - Last Documented Arterial Blood Pressure 115/51 Pulmonary Artery Pressure 32/17 Cardiac Output 4.4 Cardiac Index 2.2 - Exam GENERAL EXAM: Awake, alert 80-year-old gentleman, up in a recliner, on room air, no apparent distress. HEAD: Normocephalic. EYES: Normal reaction of pupils, equal size. NOSE: Clear with pink turbinates. THROAT: No erythema or exudates. NECK: No masses, no JVD. CHEST: Sternal dressing dry and intact. Heart hugger in place. LUNGS: Equal air entry with faint crackles in the bases. CVS: S1 and S2 normal with no audible murmur, irregular rhythm. ABDOMEN: No hepatosplenomegaly, normal bowel sounds, no guarding or rigidity. SPINE: No scoliosis or deformity SKIN: No rashes CENTRAL NERVOUS SYSTEM: Alert, oriented 2, tone is normal in all 4 extremities. EXTREMITIES: There is trace peripheral edema. No clubbing, no cyanosis. Peripheral pulses are intact. - Labs CBC & Chem 7: 12/23/20 04:26 12/23/20 04:26 Labs: Abnormal Lab Results - Last 24 Hours (Table) 12/22/20 12/22/20 12/22/20 Range/Units 03:44 12:04 16:48 WBC 13.1 H (3.8-10.6) k/uL RBC (4.30-5.90) m/uL Hgb (13.0-17.5) gm/dL Hct (39.0-53.0) % RDW (11.5-15.5) % Neutrophils # (Manual) 9.30 H (1.3-7.7) k/uL Nucleated RBCs 2 H (0-0) /100 WBC Sodium (137-145) mmol/L BUN (9-20) mg/dL Glucose (74-99) mg/dL POC Glucose (mg/dL) 109 H 106 H (75-99) mg/dL Calcium (8.4-10.2) mg/dL Total Bilirubin (0.2-1.3) mg/dL Total Protein (6.3-8.2) g/dL Albumin (3.5-5.0) g/dL Urine Protein (Negative) Urine Blood (Negative) Ur Leukocyte Esterase (Negative) Urine RBC (0-5) /hpf Urine WBC (0-5) /hpf Urine Mucus (None) /hpf 12/22/20 12/23/20 12/23/20 Range/Units 20:33 04:26 04:26 WBC 14.6 H (3.8-10.6) k/uL RBC 2.90 L (4.30-5.90) m/uL Hgb 8.9 L (13.0-17.5) gm/dL Hct 27.6 L (39.0-53.0) % RDW 16.3 H (11.5-15.5) % Neutrophils # (Manual) 11.83 H (1.3-7.7) k/uL Nucleated RBCs (0-0) /100 WBC Sodium 133 L (137-145) mmol/L BUN 25 H (9-20) mg/dL Glucose 113 H (74-99) mg/dL POC Glucose (mg/dL) 112 H (75-99) mg/dL Calcium 8.0 L (8.4-10.2) mg/dL Total Bilirubin 1.8 H (0.2-1.3) mg/dL Total Protein 5.2 L (6.3-8.2) g/dL Albumin 2.9 L (3.5-5.0) g/dL Urine Protein (Negative) Urine Blood (Negative) Ur Leukocyte Esterase (Negative) Urine RBC (0-5) /hpf Urine WBC (0-5) /hpf Urine Mucus (None) /hpf 12/23/20 12/23/20 Range/Units 06:53 08:25 WBC (3.8-10.6) k/uL RBC (4.30-5.90) m/uL Hgb (13.0-17.5) gm/dL Hct (39.0-53.0) % RDW (11.5-15.5) % Neutrophils # (Manual) (1.3-7.7) k/uL Nucleated RBCs (0-0) /100 WBC Sodium (137-145) mmol/L BUN (9-20) mg/dL Glucose (74-99) mg/dL POC Glucose (mg/dL) 116 H (75-99) mg/dL Calcium (8.4-10.2) mg/dL Total Bilirubin (0.2-1.3) mg/dL Total Protein (6.3-8.2) g/dL Albumin (3.5-5.0) g/dL Urine Protein 1+ H (Negative) Urine Blood Moderate H (Negative) Ur Leukocyte Esterase Large H (Negative) Urine RBC 38 H (0-5) /hpf Urine WBC 44 H (0-5) /hpf Urine Mucus Many H (None) /hpf Assessment and Plan Assessment: 1 Severe triple-vessel coronary artery disease status post coronary artery bypass grafting 4. 2 Mechanical ventilator management, expected outcome of surgery, recovered and on room air 3 Previous history of coronary artery disease with PCI to the LAD in 2005 4 History of atrial fibrillation, anticoagulated with warfarin in the outpatient setting 5 Hypertension 6 Hyperlipidemia 7 Diabetes mellitus 8 History of obstructive sleep apnea, CPAP 9 History of pituitary tumor 10 Lifelong nonsmoker. FEV1 value of 91% of predicted Plan: The patient was seen and evaluated by Dr. Mcmillan Chest x-ray and labs reviewed Continue incentive spirometer Increase his activity as tolerated Plan is for inpatient rehabilitation post discharge We will continue to follow I, the cosigning physician, performed a history & physical examination of the patient. Lungs sounds faint crackles in the posterior bases. Maintaining good O2 saturations in the 90s on room air. I discussed the assessment and plan of care with my nurse practitioner, Alisson Otero. I attest to the above note as dictated by her.
[2020-12-23 11:38] LABS: Glucose,Whole Blood 79 mg/dL (75-99)
--- NOTE | 2020-12-23 11:57 | PN ---
PROGRESS NOTE FOLLOW-UP NOTE: This is a 80-year-old gentleman with history of coronary artery disease, status post CABG, who is awaiting transfer to rehab. This morning patient is doing well. Denies any symptoms. Using incentive spirometry. He remains in sinus rhythm. On exam, heart rate is 105 beats per minute. Blood pressure is 113/68, respiratory rate 18. Chest exam reveals diminished air entry at the bases. Heart exam reveals first and second heart sounds. No gallop. He has a systolic murmur at the left lower sternal border. Abdomen is soft. Examination of extremities reveals mild edema. Peripheral pulses are felt. Labs show a hemoglobin of 8.9, platelet count of 260. Potassium is 4.1, creatinine 0.89. ASSESSMENT: 1. Coronary artery disease, status post coronary artery bypass grafting. 2. Persistent atrial fibrillation. PLAN: Patient will continue current medications. He needs inpatient rehab. MMFABRIZIOL / SHWETHAN: [id number] /
--- NOTE | 2020-12-23 14:21 | P.PN ---
Subjective Progress Note Date: 12/23/20 HISTORY OF PRESENT ILLNESS This is a 80-year-old male patient of Dr. Campos and Dr. Mullins with past medical history of chronic persistent atrial fibrillation, diabetes mellitus type 2, hypertension, hyperlipidemia, history of pituitary tumor resection, obstructive sleep apnea on BiPAP, gastroesophageal reflux disease, benign prostatic hypertrophy. He should also has history of coronary artery disease status post PCI to the LAD in 2005, heart catheterization in October 2020 found severe triple-vessel disease, subsequently admitted to the hospital for elective coronary artery bypass grafting 12/16 MORAN to LAD, left radial artery from the aorta to the first obtuse marginal artery, reverse saphenous vein graft from the aorta to the second diagonal artery, reverse saphenous vein graft from the aorta to the posterior descending artery, endoscopic harvesting of the left radial artery, endoscopic harvesting of the left greater saphenous vein from ankle to the groin, exclusion of the left atrial appendage. Patient is seen today in the intensive care unit. He remains intubated and on mechanical ventilation but has done well with sedation holiday and is expected to be extubated this morning. Patient's is at the bedside. He is currently on insulin drip at 3 units p er hour. Vent settings are tidal volume 500, FiO2 50 and PEEP of 5. welder gas is atrial fibrillation rate controlled. 12/18: Patient has been successfully extubated and is found today sitting in a chair in the intensive care unit. He states his pain is controlled. He denies having any abdominal pain and no diarrhea. He is having good urine output of 35-45 mL per hour. Blood sugars are running between 120 and 150. Patient is on insulin drip and will plan to see transition to Levemir 12 units tonight along with NovoLog scale before meals and at bedtime. Patient is followed by multiple consultants. Patient's and daughter are at bedside. 12/19: Patient had some delirium last night, he is not sleeping silently during the night and drowsy during the day with naps. He is utilizing his CPAP which is been brought from home. Patient is not very motivated to participate with P T. Ensure will be added as he is not eating well. He is complaining of pain in the mid abdomen. No bowel movement since admission. Patient will have the clock suppository today. He has been transitioned to Levemir and NovoLog scale and blood sugars have been stable running 115-130. He has been ordered for a dose of IV Lasix today. Pacer wires have been removed mediastinal and left chest tube in place. Blood work reveals WBC 16.2, hemoglobin 8.9, platelet count 116. Sodium 137, potassium 4.2, chloride 111, CO2 20, BUN 25 creatinine 0.84. Total bilirubin 1.3, AST 104, ALT 117, alkaline phosphatase 54. Patient has been afebrile, heart rate in the 70s and 80s, blood pressure 115/51, pulse ox 95% on room air. welder gas is a sinus rhythm. 12/20: Patient is found sitting up in the chair in minimal distress, complaining of shortness of breath. Patient remains in the ICU. He was up ambulating within the room. Patient has more motivation compared to yesterday. Patient has no other complaints or concerns. His Lasix was held. However he continues to have edema to lower extremities. Jade BC 16.3, hemoglobin 9.6, platelet count 171, sodium 139, potassium 4.0, BUN 34, creatinine 0.82. Patient remained afebrile, steel inspector shows sinus rhythm with a heart rate of 72, blood pressure 129/72 respirations 11, pulse ox 97% on room air. 12/21: Patient is found sitting up in the chair in no acute distress, no complaints of shortness of breath or chest pain today. Patient remains in the ICU. He has been ambulating in the room. Patient's activity level and motiva tion continues to increase. No other complaints or concerns noted. Patient remains afebrile, heart rate 82, respirations 25, blood pressure 93/70, 98% on room air. Jade BC 13.9, hemoglobin 9.3, platelets 212, potassium 3.6, BUN 31, creatinine 0.89. 12/22: Patient is seen today in intensive care unit. Patient is resting in chair. He has been seen this morning by Dr. Hansen for possible inpatient rehab. Patient has also been seen by urology. Barrow catheter required replacement with recommendations from urology to maintain this for one week and then start voiding trial in rehab. Patient is able to void then patient to follow-up as needed, if unable to void then follow-up and continue Flomax. Cardiology continues to follow. 12/23: Patient remains in the intensive care unit and is resting in recliner, brother is at bedside. Patient has been afebrile, heart rate in the 80s, blood pressure 100/54, pulse ox 98% on room air. welder gas is atrial fibrillation rate controlled. Repeat blood work reveals WBC 14.6, hemoglobin 8.9, platelet count 264. Sodium 133, BUN 25 creatinine 0.89. Blood sugars are running between 79 and 116. Urinalysis revealed LAD moderate, leukoesterase large, RBCs 38, wbc's 44. Repeat chest x-ray reveals low lung volumes and cardiomegaly with central vascular congestion and small bilateral pleural effusions. Patient is reaching 1500 mL on incentive spirometry. Barrow catheter remains in place. He has been seen by PT and OT with recommendations for inpatient rehab. Patient's been seen by Dr. Hansen and appears to be a good candidate for inpatient rehab. REVIEW OF SYSTEMS Constitutional: No fever, no chills, no night sweats. No weight change. No weakness, reports fatigue reports lethargy. Reports daytime sleepiness. EENT: No headache. No blurred vision or double vision, no loss of vision. No loss of Hearing, no ringing in the ears, no dizziness. No nasal drainage or congestion. No epistaxis. No sore throat. Lungs: No shortness of breath, cough, no sputum production. No wheezing. Cardiovascular: No chest pain, no lower extremity edema. No palpitations. No paroxysmal nocturnal dyspnea. No orthopnea. No lightheadedness or dizziness. No syncopal episodes. Abdominal: No abdominal pain. No nausea, vomiting. No diarrhea. No constipation. No bloody or tarry stools.. No loss of appetite. Genitourinary: No dysuria, increased frequency, urgency. Reported urinary retention. Musculoskeletal: No myalgias. No muscle weakness, no gait dysfunction, no frequent falls. No back pain. No neck pain. Integumentary: No wounds, no lesions. No rash or pruritus. No unusual bruising. Neurologic: No aphasia. No facial droop. Reports during the night change in mentation. No head injury. No headache. No paralysis. No paresthesia. Psychiatric: No depression. No anxiety. Endocrine: No abnormal blood sugars. PHYSICAL EXAMINATION Gen: This is a 80-year-old male. He is resting in a chair in the intensive care unit. Brother is at bedside. Patient does not appear to be in any acute distress. HEENT: Head is atraumatic, normocephalic. Pupils equal, round. Sclerae is anicteric. NECK: Supple. No JVD. No lymphadenopathy. No thyromegaly. LUNGS: Diminished bilaterally. No wheezes or rhonchi. No intercostal retractions. HEART: Irregular rate and rhythm. No murmur. welder gas sinus rhythm. ABDOMEN: Soft. Bowel sounds are present. No masses. No tenderness. Barrow catheter in place. EXTREMITIES: 1+ pedal edema. No calf tenderness. NEUROLOGICAL: Patient is awake, and oriented 3. No neuro deficits noted. ASSESSMENT AND PLAN 1. Coronary artery disease status post 4 vessel CABG 12/16. Continue current m anagement per cardio thoracic surgery.. Continue aspirin 81 mg daily, Lipitor 40 mg daily, Lopressor 75 mg twice daily 2. Chronic persistent atrial fibrillation. Continue Lopressor, Cardizem CD 120 mg daily. Patient is resumed on eliquis 5 mg twice daily. 3. Diabetes mellitus type 2. Continue Levemir 12 units tonight with NovoLog scale before meals and at bedtime, blood sugar is controlled 4. Hypertension. Continue Lopressor 75 mg twice daily, lisinopril 5 mg daily. 5. Hyperlipidemia. Continue Lipitor 40 mg daily 6. History of pituitary gland resection. 7. Obstructive sleep apnea on BiPAP. 8. Gastroesophageal reflux disease. 9. Benign prostatic hypertrophy with urinary retention. Replacement of Barrow catheter and continue Flomax, urology consult appreciated 10. Acute delirium possibly related to ICU setting, medication effect, lack of sleep. Continue to reorient. DISCHARGE PLAN Inpatient rehab Impression and plan of care have been directed as dictated by the signing physician. Erica Alfredo nurse practitioner acting as scribe for signing physician. Objective - Vital Signs Vital signs: Vital Signs Temp 96.8 F L 12/23/20 08:00 Pulse 95 12/23/20 10:24 Resp 22 12/23/20 10:24 BP 94/59 12/23/20 10:24 Pulse Ox 100 12/23/20 10:24 Intake & Output 12/22/20 12/23/20 12/23/20 18:59 06:59 18:59 Intake Total 200 50 Output Total 2015 830 240 Balance -1815 -830 -190 Weight 94 kg Intake: Oral 200 50 Output: Urine 2014 830 240 Other: Voiding Method Indwelling Catheter Indwelling Catheter Indwelling Catheter # Voids 0 ABP, PAP, CO, CI - Last Documented Arterial Blood Pressure 115/51 Pulmonary Artery Pressure 32/17 Cardiac Output 4.4 Cardiac Index 2.2 - Labs CBC & Chem 7: 12/23/20 04:26 12/23/20 04:26 Labs: Abnormal Lab Results - Last 24 Hours (Table) 12/22/20 12/22/20 12/22/20 Range/Units 03:44 12:04 16:48 WBC 13.1 H (3.8-10.6) k/uL RBC (4.30-5.90) m/uL Hgb (13.0-17.5) gm/dL Hct (39.0-53.0) % RDW (11.5-15.5) % Neutrophils # (Manual) 9.30 H (1.3-7.7) k/uL Nucleated RBCs 2 H (0-0) /100 WBC Sodium (137-145) mmol/L BUN (9-20) mg/dL Glucose (74-99) mg/dL POC Glucose (mg/dL) 109 H 106 H (75-99) mg/dL Calcium (8.4-10.2) mg/dL Total Bilirubin (0.2-1.3) mg/dL Total Protein (6.3-8.2) g/dL Albumin (3.5-5.0) g/dL Urine Protein (Negative) Urine Blood (Negative) Ur Leukocyte Esterase (Negative) Urine RBC (0-5) /hpf Urine WBC (0-5) /hpf Urine Mucus (None) /hpf 12/22/20 12/23/20 12/23/20 Range/Units 20:33 04:26 04:26 WBC 14.6 H (3.8-10.6) k/uL RBC 2.90 L (4.30-5.90) m/uL Hgb 8.9 L (13.0-17.5) gm/dL Hct 27.6 L (39.0-53.0) % RDW 16.3 H (11.5-15.5) % Neutrophils # (Manual) 11.83 H (1.3-7.7) k/uL Nucleated RBCs (0-0) /100 WBC Sodium 133 L (137-145) mmol/L BUN 25 H (9-20) mg/dL Glucose 113 H (74-99) mg/dL POC Glucose (mg/dL) 112 H (75-99) mg/dL Calcium 8.0 L (8.4-10.2) mg/dL Total Bilirubin 1.8 H (0.2-1.3) mg/dL Total Protein 5.2 L (6.3-8.2) g/dL Albumin 2.9 L (3.5-5.0) g/dL Urine Protein (Negative) Urine Blood (Negative) Ur Leukocyte Esterase (Negative) Urine RBC (0-5) /hpf Urine WBC (0-5) /hpf Urine Mucus (None) /hpf 12/23/20 12/23/20 Range/Units 06:53 08:25 WBC (3.8-10.6) k/uL RBC (4.30-5.90) m/uL Hgb (13.0-17.5) gm/dL Hct (39.0-53.0) % RDW (11.5-15.5) % Neutrophils # (Manual) (1.3-7.7) k/uL Nucleated RBCs (0-0) /100 WBC Sodium (137-145) mmol/L BUN (9-20) mg/dL Glucose (74-99) mg/dL POC Glucose (mg/dL) 116 H (75-99) mg/dL Calcium (8.4-10.2) mg/dL Total Bilirubin (0.2-1.3) mg/dL Total Protein (6.3-8.2) g/dL Albumin (3.5-5.0) g/dL Urine Protein 1+ H (Negative) Urine Blood Moderate H (Negative) Ur Leukocyte Esterase Large H (Negative) Urine RBC 38 H (0-5) /hpf Urine WBC 44 H (0-5) /hpf Urine Mucus Many H (None) /hpf
[2020-12-23] MEDS: lisinopriL 5 MG TAB PO SCH (14:27)
[2020-12-23 16:08] LABS: Glucose,Whole Blood 75 mg/dL (75-99)
[2020-12-23 19:54] LABS: Glucose,Whole Blood 157 mg/dL (75-99)
[2020-12-23] MEDS: INSULIN DETEMIR (LEVEMIR) 100 UNIT/ML SYR SQ SCH (20:29)
[2020-12-23] MEDS: SENNOSIDES-DOCUSATE SODIUM 1 EACH TAB PO SCH (20:30)
[2020-12-23] MEDS: LATANOPROST 0.005% OPHTH DROPS 2.5 ML BTL BOTH EYES SCH (20:31)
[2020-12-23] MEDS: MONTELUKAST 10 MG TAB PO SCH (20:31)
[2020-12-24 05:06] LABS: Calcium 8.4 mg/dL (8.4-10.2); Magnesium 2.2 mg/dL (1.6-2.3); Potassium 3.9 mmol/L (3.5-5.1)
[2020-12-24] MEDS ORDERED: Potassium Replacement Protocol 1 EACH MISC MISCELLANE PRN (05:12)
[2020-12-24 05:21] LABS: Anisocytosis Slight; Basophils % (A) 0 %; Eosinophils # (A) 0.2 k/uL (0-0.7); Eosinophils % (A) 1 %; HCT 28.2 % (39.0-53.0); HGB 9.7 gm/dL (13.0-17.5); Hypochromasia Slight; Lymphocytes # (A) 2.1 k/uL (1.0-4.8); Lymphocytes % (A) 16 %; MCHC 34.2 g/dL (31.0-37.0); MCV 93.4 fL (80.0-100.0); Mean Platelet Volume 7.7; Monocytes # (A) 0.8 k/uL (0-1.0); Monocytes % (A) 6 %; Neutrophils % (A) 75 %; Platelet Count 368 k/uL (150-450); Poikilocytosis Moderate; RBC 3.02 m/uL (4.30-5.90); RDW 16.6 % (11.5-15.5); WBC 13.3 k/uL (3.8-10.6)
[2020-12-24] MEDS ORDERED: POTASSIUM CHLORIDE ER 20 MEQ TAB.ER PO SCH (06:00)
[2020-12-24 06:39] LABS: Glucose,Whole Blood 111 mg/dL (75-99)
[2020-12-24] MEDS: INSULIN ASPART (NovoLOG) 100 UNIT/ML VIAL SQ SCH ×3 (06:50→22:28)
--- NOTE | 2020-12-24 08:19 | XR ---
EXAMINATION TYPE: XR chest 1V portable DATE OF EXAM: 12/24/2020 COMPARISON: Chest x-ray 12/23/2020 HISTORY: Postop coronary artery bypass graft TECHNIQUE: Single frontal view of the chest is obtained. FINDINGS: Patient is post median sternotomy and left atrial appendage clip placement. Bibasilar dens ity persists. Cardiac mediastinal silhouette is stable. Lung volumes are low. There is no evident pne umothorax and there are overlying artifacts. IMPRESSION: Findings are similar to prior exam. Basilar effusions and possible associated atelectasi s, correlate to exclude pneumonia. Postop changes.
[2020-12-24] MEDS ORDERED: FUROSEMIDE 10 MG/ML 2 ML VIAL IV ONE (08:25)
--- NOTE | 2020-12-24 08:29 | P.PN ---
Subjective Progress Note Date: 12/24/20 Principal diagnosis: Triple-vessel coronary artery disease. Previous medical history of coronary artery disease with PCI to the LAD in 2006, chronic atrial fibrillation on Coumadin for anticoagulation, preserved left ventricular function, hypertension, hyperlipidemia, diet controlled diabetes mellitus, obstructive sleep apnea on home CPAP, previous pituitary tumor, never smoker, daily wine consumption, and family history of premature coronary artery disease with father diagnosed before the age of 55. POD #8 quadruple coronary artery bypass grafting using the left internal mammary artery to the left anterior descending artery, left radial artery from the aorta to the first obtuse marginal artery, reverse saphenous vein graft from the aorta to the second diagonal artery, reverse saphenous vein graft from the aorta to the posterior descending artery, endoscopic harvesting of the left radial artery, endoscopic harvesting of the left greater saphenous vein from ankle to the groin, exclusion of the left atrial appendage using a 40 mm AtriClip, exploratory aortotomy, intraoperative transesophageal echocardiogram and epi- aortic scanning, intraoperative graft flow measurements using the Pain Doctor system Postoperative acute blood loss anemia and thrombocytopenia, expected given hemodilution and cardiopulmonary bypass pump as well as chronic Coumadin use Urinary retention requiring Barrow catheter replacement, expected due to history of BPH The patient was seen and examined with Dr. Edmond this morning in the intensive care unit, sitting up in the recliner in no acute distress. Denies pain or shortness of breath. His only concern at this point in time is that he doesn't feel like eating, he has stomach upset, which she attributes to Eliquis. He states he has been intolerant to Eliquis in the past and requesting be placed back on Coumadin. No other new complaints. Remains in controlled atrial fibrillation, hemodynamically stable. Neurologically intact. Currently on room air, achieving 7340-5292 mL on incentive spirometer. He has been ambulatory w ith therapy although requires motivation, anticipate discharge to inpatient rehab today once insurance authorization has been obtained. Patient will need inpatient rehab at discharge due to need for close physician monitoring, daily lab draws for PT/INR for Coumadin management, as well as for safety concerns. Objective - Vital Signs Vital signs: Vital Signs Temp 97.7 F 12/24/20 04:00 Pulse 101 H 12/24/20 07:00 Resp 14 12/24/20 07:00 BP 108/66 12/24/20 07:00 Pulse Ox 95 10/13/21 07:00 Intake & Output 12/23/20 12/24/20 12/24/20 18:59 06:59 18:59 Intake Total 50 100 Output Total 876 530 40 Balance -826 -430 -40 Weight 93.5 kg Intake: Oral 50 100 Output: Urine 875 530 40 Stool 1 Other: Voiding Method Indwelling Catheter Indwelling Catheter ABP, PAP, CO, CI - Last Documented Arterial Blood Pressure 115/51 Pulmonary Artery Pressure 32/17 Cardiac Output 4.4 Cardiac Index 2.2 - Exam CONSTITUTIONAL: Sitting up in recliner, appears comfortable, no acute distress RESPIRATORY: Lungs sounds diminished bilaterally. Respirations even, nonlabored. Currently on room air with oxygen saturation 95%. Able to achieve 1527-3790 mL on incentive spirometer. Strong cough CARDIOVASCULAR: S1, S2 present. Irregular rate and rhythm, chronic atrial fibrillation on telemetry. Sternum stable. Palpable peripheral pulses bilaterally. Trace generalized edema present. Heart hugger in place with patient attempting to use appropriately. Antiembolism stockings, SCDs present. GASTROINTESTINAL: Abdomen soft, nontender, nondistended, round. Active bowel sounds present 4 quadrants. Tolerating minimal diet. Positive bowel movement GENITOURINARY: Barrow present draining yellow urine. Output overnight 30-40 mL per hour, 1305 mL in the last 24 hours INTEGUMENTARY: Skin is warm and dry. Anterior chest incision well approximated. Left radial artery harvest site well approximated. Left lower extremity EVH site well approximated without redness or drainage. NEUROLOGIC: Cranial nerves II through XII intact MUSKULOSKELETAL: Able to move all extremities, strength equal bilaterally PSYCHIATRIC: Alert and oriented to person place and time, calm and cooperative - Allied health notes Allied health notes reviewed: nursing - Labs CBC & Chem 7: 12/24/20 04:11 12/24/20 04:11 Labs: Abnormal Lab Results - Last 24 Hours (Table) 12/23/20 12/23/20 12/24/20 Range/Units 08:25 19:52 04:11 WBC 13.3 H (3.8-10.6) k/uL RBC 3.02 L (4.30-5.90) m/uL Hgb 9.7 L (13.0-17.5) gm/dL Hct 28.2 L (39.0-53.0) % RDW 16.6 H (11.5-15.5) % Neutrophils # 10.0 H (1.3-7.7) k/uL Sodium (137-145) mmol/L BUN (9-20) mg/dL Glucose (74-99) mg/dL POC Glucose (mg/dL) 157 H (75-99) mg/dL Urine Protein 1+ H (Negative) Urine Blood Moderate H (Negative) Ur Leukocyte Esterase Large H (Negative) Urine RBC 38 H (0-5) /hpf Urine WBC 44 H (0-5) /hpf Urine Mucus Many H (None) /hpf 12/24/20 12/24/20 Range/Units 04:11 06:37 WBC (3.8-10.6) k/uL RBC (4.30-5.90) m/uL Hgb (13.0-17.5) gm/dL Hct (39.0-53.0) % RDW (11.5-15.5) % Neutrophils # (1.3-7.7) k/uL Sodium 135 L (137-145) mmol/L BUN 28 H (9-20) mg/dL Glucose 105 H (74-99) mg/dL POC Glucose (mg/dL) 111 H (75-99) mg/dL Urine Protein (Negative) Urine Blood (Negative) Ur Leukocyte Esterase (Negative) Urine RBC (0-5) /hpf Urine WBC (0-5) /hpf Urine Mucus (None) /hpf Microbiology - Last 24 Hours (Table) 12/23/20 08:25 Urine Culture - Preliminary Urine,Voided - Imaging and Cardiology Chest x-ray: image reviewed Assessment and Plan Assessment: 1. Triple-vessel coronary artery disease, status post four-vessel CABG 2. Preserved left ventricular function 3. History of coronary artery disease with PCI to the LAD in 2005 4. Chronic atrial fibrillation on Coumadin for anticoagulation, status post exclusion of the left atrial appendage 5. History of hypertension 6. Hyperlipidemia, treated, cholesterol 123, LDL 153, triglycerides 181 7. Diet controlled diabetes mellitus, preoperative hemoglobin A1c 6.2% 8. Obstructive sleep apnea on home CPAP 9. Previous pituitary tumor 10. Never smoker, preoperative FEV1 91% of predicted 11. Daily wine consumption 12. BPH 13. Family history of premature coronary artery disease with father diagnosed before the age of 55. 14. Postoperative acute blood loss anemia and thrombocytopenia, expected 15. Urinary retention requiring reinitiation of Barrow catheter, expected Plan: 1. Continue low-dose aspirin, statin, Plavix, beta junito therapy. Will increase beta junito as tolerated. Continue lisinopril for afterload reduction 2. Continue cardizem for radial artery spasm prophylaxis, afib heart rate cont rol. Do not discontinue CCB without discussing with cardiac surgery 3. Bronchodilators per pulmonology. Encourage incentive spirometer use 10 times every hour while awake 4. Increase activity, ambulate as tolerated, PT/OT/cardiac rehab following 5. Will monitor daily labs and x-rays. Electrolyte replacement per protocol. Will give lasix 20 mg IVP x 1. Will obtain 2V CXR to eval lateral view for extent of effusion 6. GI/DVT prophylaxis 7. Insulin management per primary care service 8. Pain control with current medication regimen 9. Continue Barrow catheter for 1 week before retrial of voiding per urology recommendations, continue Flomax 10. Strict accurate intake and output. Daily weights 11. Will change anticoagulation to Coumadin per patient request. Will need bridge with Eliquis until INR 2-3 12. Anticipate discharge to inpatient rehab today pending insurance authorizat ion. Patient will need IPR at discharge due to need for close physician monitoring, daily lab draws for PT/INR for Coumadin management, as well as for safety concerns 13. More recommendations to follow based on patient's progress Time with Patient: Greater than 30
[2020-12-24] MEDS: CHOLECALCIFEROL 25 MCG (1000 IU) TABLET PO SCH (08:51)
[2020-12-24] MEDS: ATORVASTATIN 40 MG TAB PO SCH (08:51)
[2020-12-24] MEDS: ASCORBIC ACID 500 MG TAB PO SCH (08:51)
[2020-12-24] MEDS: TAMSULOSIN 0.4 MG CAP.ER.24H PO SCH (08:51)
[2020-12-24] MEDS: DILTIAZEM CD 120 MG CAP.ER.24H PO SCH (08:52)
[2020-12-24] MEDS: METOPROLOL TARTRATE 25 MG TAB PO SCH ×2 (08:52→22:23)
[2020-12-24] MEDS: APIXABAN 5 MG TAB PO SCH ×2 (08:53→22:23)
[2020-12-24] MEDS: ASPIRIN 81 MG PO SCH (08:53)
[2020-12-24] MEDS: PANTOPRAZOLE 40 MG/10 ML VIAL IVP SCH ×2 (08:54→22:24)
[2020-12-24 09:10] LABS: INR 1.2 (<1.2); Prothrombin Time 12.2 sec (9.0-12.0)
[2020-12-24] MEDS: IPRATROPIUM-ALBUTEROL 3 ML NEB INHALATION SCH ×4 (09:11→20:10)
--- NOTE | 2020-12-24 09:45 | P.PN ---
Subjective Progress Note Date: 12/24/20 Principal diagnosis: Coronary artery disease This is a 80-year-old male patient with a history of atrial fibrillation, hyperlipidemia, hypertension, diabetes mellitus. Lifelong nonsmoker. who was found to have severe triple-vessel coronary artery disease with a totally occluded mid LAD and good collaterals and normal ejection fraction. He had been seen and evaluated by Dr. Edmond who recommended coronary artery bypass grafting. He presented here yesterday for elective surgery. He had undergone quadruple coronary artery bypass grafting utilizing a MORAN to the LAD, left radial artery to the first obtuse marginal artery, reverse saphenous vein graft to the second diagonal artery and posterior descending artery. He remains intubated and on the mechanical ventilator this morning. Current settings are assist-control mode at a rate of 12, tidal volume 500, FiO2 50% and a PEEP of 5. Morning blood gases revealed a P O2 of 76, pCO2 39, pH 7.43. He was found to the cardiac output of 3.5. Cardiac index of 1.8. Mediastinal chest tube with 1.3 L output in the past 24 hours. Left chest tube 900 mL output. He has a right internal jugular Jaffrey-Sara catheter in place. Right arterial line in place. Left radial harvest site dressing dry and intact. ADOLFO in place. He is currently on a milrinone drip at 0.2 mg/kg/m. Insulin drip at 3 units per hour. Norepinephrine at 0.05 mcg/kg/m. Marcus-Synephrine at 0.8 mcg/kg/m. Propofol at 25 mcg/kg/m. 0.9 normal saline at 50 MLS per hour. He did have episode of atrial fibrillation with rapid ventricular response and received digoxin IV. He also has received albumin. 2 units of fresh frozen plasma. One unit of packed red blood cells. White count 9.3. Hemoglobin 8.6. Platelet count 97,000. INR 1.2. Fibrinogen 216. Sodium 139. Potassium 4.0. Bicarb 25. Creatinine 0.81. Glucose 132. Total protein 4.7. Albumin 3.0. Chest x-ray reveals cardiomegaly and chronic parenchymal changes with a small left pleural effusion and left greater than right bibasilar acute atelectasis. Mediastinal and left chest tubes in place. No pneumothorax seen. The patient is seen today 12/18/2020 in follow-up in intensive care unit. He was successfully extubated yesterday at approximately 12:45 PM. He is awake and alert in no acute distress. He is on 5 L nasal cannula and maintaining O2 saturations in the 90s. Chest x-ray reveals interval extubation. Cardiomegaly and chronic parenchymal changes with small left greater than right bibasilar acute atelectasis. Left-sided chest tube in place without evidence of pneumothorax. Mediastinal tubes in place. Right internal jugular catheter remains in place. Right radial arterial blood glucose. Current AV pacer wires in place. Remains in atrial fibrillation with controlled ventricular response. Cardiac output 4.1. Cardiac index 2.1. PA pressures 29/12. CVP is 6. He remains on milrinone at 0.1 mg/kg per minute. Insulin drip at 3 units an hour. 0.9 normal saline at 30 MLS per hour. He is pulling approximate 500-750 MLS on the incentive spirometer. Currently up in a recliner at the bedside. Heparin for DVT prophylaxis. The patient is seen today 12/19/2020 in follow-up in the intensive care unit. Postoperative day #3. He is currently sitting up in a chair at the bedside. Awake and alert in no acute distress. He was having some periods of confusion. drug abuse social worker is at the bedside. He is maintaining O2 saturations in the mid 90s on room air. He is off most drips. He is still on insulin at 5 units per hour. 0.9#20 MLS per hour. Mediastinal chest tube has remain in place with 120 ML's house and 60 ML's of the left chest. He is remaining in sinus rhythm. Pacer wires have been removed. Needs increased encouragement regarding use the incentive spirometer. Chest x-ray reveals postoperative changes with small layering pleural effusions and some improvement in the atelectasis at the left base. If he did require 2 units of fresh frozen plasma one unit of red blood cells this admission. White count 16.2. Hemoglobin 8.9. Platelets 116. Sodium 137. Potassium 4.2. Bicarb 20. Creatinine 0.84. AST 104. ALT 114. Heparin for DVT prophylaxis. The patient is seen today 12/23/2020 in follow-up in the intensive care unit. He is currently sitting up in a chair at the bedside. Awake and alert in no acute distress. Maintaining good O2 saturations in the 90s on room air. No IV fluids. Chest x-ray reveals low lung volumes and cardiomegaly with central venous congestion and small bilateral pleural effusions. No significant change compared to yesterday. He needs increased encouragement regarding the use of th e incentive spirometer and cough and deep breathing exercises. White count 14.6. Hemoglobin 8.9. Sodium 133. Potassium 4.1. Bicarb 24. Creatinine 0.89. Glucose 113. Urinalysis with moderate blood, increased WBCs. He was given 20 mg of Lasix IVP 1 this morning. Remains on bronchodilators. Anticoagulated with Eliquis. He is status post 2 units of fresh was a plasma one unit of packed red blood cells this admission. Plan is for inpatient rehabilitation post discharge. The patient is seen today 12/24/2020 in follow-up on the intensive care unit. He is currently sitting up in a chair. Awake and alert in no acute distress. He is maintaining O2 saturation in the 90s on room air. Chest x-ray reveals similar findings. Basilar effusions and possible associated atelectasis. White count 13.3. Hemoglobin 9.7. Platelets 368. Sodium 135. Potassium 3.9. Creatinine 1.11. He's been initiated on Eliquis but he feels he has GI issues. He may be switched to warfarin or Xarelto. He was given Lasix 20 mg IVP 1 this morning. Objective - Vital Signs Vital signs: Vital Signs Temp 97.7 F 12/24/20 04:00 Pulse 96 12/24/20 08:00 Resp 23 12/24/20 08:00 BP 109/80 12/24/20 08:00 Pulse Ox 95 12/24/20 07:00 Intake & Output 12/23/20 12/24/20 12/24/20 18:59 06:59 18:59 Intake Total 50 100 Output Total 876 530 40 Balance -826 -430 -40 Weight 93.5 kg Intake: Oral 50 100 Output: Urine 875 530 40 Stool 1 Other: Voiding Method Indwelling Catheter Indwelling Catheter Indwelling Catheter ABP, PAP, CO, CI - Last Documented Arterial Blood Pressure 115/51 Pulmonary Artery Pressure 32/17 Cardiac Output 4.4 Cardiac Index 2.2 - Exam GENERAL EXAM: Awake, alert 80-year-old gentleman, up in a recliner, on room air, no apparent distress. HEAD: Normocephalic. EYES: Normal reaction of pupils, equal size. NOSE: Clear with pink turbinates. THROAT: No erythema or exudates. NECK: No masses, no JVD. CHEST: Sternal dressing dry and intact. Heart hugger in place. LUNGS: Equal air entry with faint crackles in the bases. CVS: S1 and S2 normal with no audible murmur, irregular rhythm. ABDOMEN: No hepatosplenomegaly, normal bowel sounds, no guarding or rigidity. SPINE: No scoliosis or deformity SKIN: No rashes CENTRAL NERVOUS SYSTEM: Alert, oriented 2, tone is normal in all 4 extremities. EXTREMITIES: There is trace peripheral edema. No clubbing, no cyanosis. Peripheral pulses are intact. - Labs CBC & Chem 7: 12/24/20 04:11 12/24/20 04:11 Labs: Abnormal Lab Results - Last 24 Hours (Table) 12/23/20 12/24/20 12/24/20 Range/Units 19:52 04:11 04:11 WBC 13.3 H (3.8-10.6) k/uL RBC 3.02 L (4.30-5.90) m/uL Hgb 9.7 L (13.0-17.5) gm/dL Hct 28.2 L (39.0-53.0) % RDW 16.6 H (11.5-15.5) % Neutrophils # 10.0 H (1.3-7.7) k/uL PT (9.0-12.0) sec INR (<1.2) Sodium 135 L (137-145) mmol/L BUN 28 H (9-20) mg/dL Glucose 105 H (74-99) mg/dL POC Glucose (mg/dL) 157 H (75-99) mg/dL 12/24/20 12/24/20 Range/Units 06:37 08:24 WBC (3.8-10.6) k/uL RBC (4.30-5.90) m/uL Hgb (13.0-17.5) gm/dL Hct (39.0-53.0) % RDW (11.5-15.5) % Neutrophils # (1.3-7.7) k/uL PT 12.2 H (9.0-12.0) sec INR 1.2 H (<1.2) Sodium (137-145) mmol/L BUN (9-20) mg/dL Glucose (74-99) mg/dL POC Glucose (mg/dL) 111 H (75-99) mg/dL Microbiology - Last 24 Hours (Table) 12/23/20 08:25 Urine Culture - Preliminary Urine,Voided Assessment and Plan Assessment: 1 Severe triple-vessel coronary artery disease status post coronary artery bypass grafting 4. 2 Mechanical ventilator management, expected outcome of surgery, recovered and on room air 3 Previous history of coronary artery disease with PCI to the LAD in 2005 4 History of atrial fibrillation, anticoagulated with warfarin in the outpatient setting 5 Hypertension 6 Hyperlipidemia 7 Diabetes mellitus 8 History of obstructive sleep apnea, CPAP 9 History of pituitary tumor 10 Lifelong nonsmoker. FEV1 value of 91% of predicted Plan: The patient was seen and evaluated by Dr. Hipolito Denis from the pulmonary standpoint Chest x-ray and labs reviewed Continue incentive spirometer Increase his activity as tolerated Plan is for inpatient rehabilitation post discharge We will continue to follow I, the cosigning physician, performed a history & physical examination of the patient. Lungs sounds faint crackles in the posterior bases. Maintaining good O2 saturations in the 90s on room air. I discussed the assessment and plan of care with my nurse practitioner, Alisson Otero. I attest to the above note as dictated by her.
--- NOTE | 2020-12-24 10:52 | XR ---
EXAMINATION TYPE: XR chest 2V DATE OF EXAM: 12/24/2020 COMPARISON: Chest x-ray 12/24/2020 at earlier time HISTORY: Pleural effusion TECHNIQUE: Frontal and lateral views of the chest are obtained. FINDINGS: There is no significant interval change. There is blunting the posterior costophrenic angl es. IMPRESSION: Findings suggest small effusions as noted on prior exam.
[2020-12-24 11:38] LABS: Glucose,Whole Blood 78 mg/dL (75-99)
--- NOTE | 2020-12-24 15:00 | P.PN ---
Subjective Progress Note Date: 12/24/20 HISTORY OF PRESENT ILLNESS This is a 80-year-old male patient of Dr. Campos and Dr. Mullins with past medical history of chronic persistent atrial fibrillation, diabetes mellitus type 2, hypertension, hyperlipidemia, history of pituitary tumor resection, obstructive sleep apnea on BiPAP, gastroesophageal reflux disease, benign prostatic hypertrophy. He should also has history of coronary artery disease status post PCI to the LAD in 2005, heart catheterization in October 2020 found severe triple-vessel disease, subsequently admitted to the hospital for elective coronary artery bypass grafting 12/16 MORAN to LAD, left radial artery from the aorta to the first obtuse marginal artery, reverse saphenous vein graft from the aorta to the second diagonal artery, reverse saphenous vein graft from the aorta to the posterior descending artery, endoscopic harvesting of the left radial artery, endoscopic harvesting of the left greater saphenous vein from ankle to the groin, exclusion of the left atrial appendage. Patient is seen today in the intensive care unit. He remains intubated and on mechanical ventilation but has done well with sedation holiday and is expected to be extubated this morning. Patient's is at the bedside. He is currently on insulin drip at 3 units p er hour. Vent settings are tidal volume 500, FiO2 50 and PEEP of 5. vehicle monitor technician is atrial fibrillation rate controlled. 12/18: Patient has been successfully extubated and is found today sitting in a chair in the intensive care unit. He states his pain is controlled. He denies having any abdominal pain and no diarrhea. He is having good urine output of 35-45 mL per hour. Blood sugars are running between 120 and 150. Patient is on insulin drip and will plan to see transition to Levemir 12 units tonight along with NovoLog scale before meals and at bedtime. Patient is followed by multiple consultants. Patient's and daughter are at bedside. 12/19: Patient had some delirium last night, he is not sleeping silently during the night and drowsy during the day with naps. He is utilizing his CPAP which is been brought from home. Patient is not very motivated to participate with P T. Ensure will be added as he is not eating well. He is complaining of pain in the mid abdomen. No bowel movement since admission. Patient will have the clock suppository today. He has been transitioned to Levemir and NovoLog scale and blood sugars have been stable running 115-130. He has been ordered for a dose of IV Lasix today. Pacer wires have been removed mediastinal and left chest tube in place. Blood work reveals WBC 16.2, hemoglobin 8.9, platelet count 116. Sodium 137, potassium 4.2, chloride 111, CO2 20, BUN 25 creatinine 0.84. Total bilirubin 1.3, AST 104, ALT 117, alkaline phosphatase 54. Patient has been afebrile, heart rate in the 70s and 80s, blood pressure 115/51, pulse ox 95% on room air. vehicle monitor technician is a sinus rhythm. 12/20: Patient is found sitting up in the chair in minimal distress, complaining of shortness of breath. Patient remains in the ICU. He was up ambulating within the room. Patient has more motivation compared to yesterday. Patient has no other complaints or concerns. His Lasix was held. However he continues to have edema to lower extremities. Jade BC 16.3, hemoglobin 9.6, platelet count 171, sodium 139, potassium 4.0, BUN 34, creatinine 0.82. Patient remained afebrile, monitor technician shows sinus rhythm with a heart rate of 72, blood pressure 129/72 respirations 11, pulse ox 97% on room air. 12/21: Patient is found sitting up in the chair in no acute distress, no complaints of shortness of breath or chest pain today. Patient remains in the ICU. He has been ambulating in the room. Patient's activity level and motiva tion continues to increase. No other complaints or concerns noted. Patient remains afebrile, heart rate 82, respirations 25, blood pressure 93/70, 98% on room air. Jade BC 13.9, hemoglobin 9.3, platelets 212, potassium 3.6, BUN 31, creatinine 0.89. 12/22: Patient is seen today in intensive care unit. Patient is resting in chair. He has been seen this morning by Dr. Hansen for possible inpatient rehab. Patient has also been seen by urology. Barrow catheter required replacement with recommendations from urology to maintain this for one week and then start voiding trial in rehab. Patient is able to void then patient to follow-up as needed, if unable to void then follow-up and continue Flomax. Cardiology continues to follow. 12/23: Patient remains in the intensive care unit and is resting in recliner, brother is at bedside. Patient has been afebrile, heart rate in the 80s, blood pressure 100/54, pulse ox 98% on room air. vehicle monitor technician is atrial fibrillation rate controlled. Repeat blood work reveals WBC 14.6, hemoglobin 8.9, platelet count 264. Sodium 133, BUN 25 creatinine 0.89. Blood sugars are running between 79 and 116. Urinalysis revealed LAD moderate, leukoesterase large, RBCs 38, wbc's 44. Repeat chest x-ray reveals low lung volumes and cardiomegaly with central vascular congestion and small bilateral pleural effusions. Patient is reaching 1500 mL on incentive spirometry. Barrow catheter remains in place. He has been seen by PT and OT with recommendations for inpatient rehab. Patient's been seen by Dr. Hansen and appears to be a good candidate for inpatient rehab. 12/24: Patient remains in the intensive care unit but has been downgraded to cardiac stepdown unit. He has been started on eliquis as bridge and also started on Coumadin with plan to bridge until INR is 2-3. Patient is afebrile, heart rate 7790s, blood pressure 114/68, pulse ox 8700% on room air. INR 1.2. Blood sugars are running between 78 and 157. Patient has been accepted at [facility] for inpatient rehab and waiting for peer to peer for insurance authorization REVIEW OF SYSTEMS Constitutional: No fever, no chills, no night sweats. No weight change. No weakness, reports fatigue reports lethargy. Reports daytime sleepiness. EENT: No headache. No blurred vision or double vision, no loss of vision. No loss of Hearing, no ringing in the ears, no dizziness. No nasal drainage or congestion. No epistaxis. No sore throat. Lungs: No shortness of breath, cough, no sputum production. No wheezing. Cardiovascular: No chest pain, no lower extremity edema. No palpitations. No paroxysmal nocturnal dyspnea. No orthopnea. No lightheadedness or dizziness. No syncopal episodes. Abdominal: No abdominal pain. No nausea, vomiting. No diarrhea. No constipation. No bloody or tarry stools. Reports loss of appetite. Genitourinary: No dysuria, increased frequency, urgency. Reported urinary retention. Musculoskeletal: No myalgias. No muscle weakness, no gait dysfunction, no frequent falls. No back pain. No neck pain. Integumentary: No wounds, no lesions. No rash or pruritus. No unusual bruising. Neurologic: No aphasia. No facial droop. Reports during the night change in mentation. No head injury. No headache. No paralysis. No paresthesia. Psychiatric: No depression. No anxiety. Endocrine: No abnormal blood sugars. PHYSICAL EXAMINATION Gen: This is a 80-year-old male. He is resting in a chair in the intensive care unit. Brother is at bedside. Patient does not appear to be in any acute distress. HEENT: Head is atraumatic, normocephalic. Pupils equal, round. Sclerae is anicteric. NECK: Supple. No JVD. No lymphadenopathy. No thyromegaly. LUNGS: Diminished bilaterally. No wheezes or rhonchi. No intercostal retractions. HEART: Irregular rate and rhythm. No murmur. vehicle monitor technician sinus rhythm. ABDOMEN: Soft. Bowel sounds are present. No masses. No tenderness. Barrow in place. EXTREMITIES: 1+ pedal edema. No calf tenderness. NEUROLOGICAL: Patient is awake, and oriented 3. No neuro deficits noted. ASSESSMENT AND PLAN 1. Coronary artery disease status post 4 vessel CABG 12/16. Continue current management per cardio thoracic surgery. Continue aspirin 81 mg daily, Lipitor 40 mg daily, Lopressor 75 mg twice daily 2. Chronic persistent atrial fibrillation. Continue Lopressor, Cardizem CD 120 mg daily. Patient is resumed on eliquis 5 mg twice daily and Coumadin. 3. Diabetes mellitus type 2. Continue Levemir 12 units tonight with NovoLog scale before meals and at bedtime, blood sugar is controlled. 4. Hypertension. Continue Lopressor 75 mg twice daily, lisinopril 5 mg daily. 5. Hyperlipidemia. Continue Lipitor 40 mg daily 6. History of pituitary gland resection. 7. Obstructive sleep apnea on BiPAP. 8. Gastroesophageal reflux disease. 9. Benign prostatic hypertrophy with urinary retention. Replacement of Barrow catheter and continue Flomax, urology consult appreciated 10. Acute delirium possibly related to ICU setting, medication effect, lack of sleep. Continue to reorient. DISCHARGE PLAN Inpatient rehab Impression and plan of care have been directed as dictated by the signing physician. Erica Alfredo nurse practitioner acting as scribe for signing physician. Objective - Vital Signs Vital signs: Vital Signs Temp 97.7 F 12/24/20 04:00 Pulse 96 12/24/20 08:00 Resp 23 12/24/20 08:00 BP 109/80 12/24/20 08:00 Pulse Ox 95 12/24/20 07:00 Intake & Output 12/23/20 12/24/20 12/24/20 18:59 06:59 18:59 Intake Total 50 100 Output Total 876 530 40 Balance -826 -430 -40 Weight 93.5 kg Intake: Oral 50 100 Output: Urine 875 530 40 Stool 1 Other: Voiding Method Indwelling Catheter Indwelling Catheter Indwelling Catheter ABP, PAP, CO, CI - Last Documented Arterial Blood Pressure 115/51 Pulmonary Artery Pressure 32/17 Cardiac Output 4.4 Cardiac Index 2.2 - Labs CBC & Chem 7: 12/24/20 04:11 12/24/20 04:11 Labs: Abnormal Lab Results - Last 24 Hours (Table) 12/23/20 12/24/20 12/24/20 Range/Units 19:52 04:11 04:11 WBC 13.3 H (3.8-10.6) k/uL RBC 3.02 L (4.30-5.90) m/uL Hgb 9.7 L (13.0-17.5) gm/dL Hct 28.2 L (39.0-53.0) % RDW 16.6 H (11.5-15.5) % Neutrophils # 10.0 H (1.3-7.7) k/uL PT (9.0-12.0) sec INR (<1.2) Sodium 135 L (137-145) mmol/L BUN 28 H (9-20) mg/dL Glucose 105 H (74-99) mg/dL POC Glucose (mg/dL) 157 H (75-99) mg/dL 12/24/20 12/24/20 Range/Units 06:37 08:24 WBC (3.8-10.6) k/uL RBC (4.30-5.90) m/uL Hgb (13.0-17.5) gm/dL Hct (39.0-53.0) % RDW (11.5-15.5) % Neutrophils # (1.3-7.7) k/uL PT 12.2 H (9.0-12.0) sec INR 1.2 H (<1.2) Sodium (137-145) mmol/L BUN (9-20) mg/dL Glucose (74-99) mg/dL POC Glucose (mg/dL) 111 H (75-99) mg/dL Microbiology - Last 24 Hours (Table) 12/23/20 08:25 Urine Culture - Preliminary Urine,Voided
--- NOTE | 2020-12-24 15:01 | US ---
EXAMINATION TYPE: US chest DATE OF EXAM: 12/24/2020 COMPARISON: NONE CLINICAL HISTORY: Pleural effusions. TECHNIQUE: Targeted ultrasound of the posterior lower bilateral hemithoraces EXAM MEASUREMENTS: Right Pleural Effusion pocket size: 8.9 cm Right skin surface to fluid distance: 3.4 cm Left Pleural Effusion pocket size: 7.4 cm Left skin surface to fluid distance: 4.5 cm Right side marked for possible thoracentesis outside the dept. Left side marked for possible thoracentesis outside the dept. Pulmonologists are able to review the images in the patient?s EMR. IMPRESSIONS: 1. Bilateral pleural effusions
--- NOTE | 2020-12-24 15:11 | PN ---
PROGRESS NOTE Mr. Valero is a 80-year-old gentleman who is admitted to hospital on 12/16/2020 for bypass surgery. He has known persistent atrial fibrillation and was on Coumadin in the outpatient setting. He has had a prolonged hospital course and is making slow but steady recovery. He is feeling much better. Remains in atrial fibrillation with a controlled ventricular rate. Blood pressure is 109/80, respiratory is 18. Chest exam reveals diminished air entry at the bases. Heart exam reveals first and second heart sounds, irregular rhythm. Murmur at the left lower sternal border. Abdomen is soft. Exam of extremities did not reveal any edema. Peripheral pulses are felt. The patient is on Eliquis and is not able to tolerate it. This is being stopped and patient is receiving Coumadin this evening. He is also on Zestril, Lopressor 75 b.i.d. for rate control. ASSESSMENT: 1. Coronary artery disease status post coronary artery bypass grafting. 2. Persistent atrial fibrillation with controlled ventricular rate. Because of intolerance of Eliquis in the past, the patient has been taking Coumadin in the outpatient setting. That is what he wishes to take and will continue the same. MMODL / IJN: [id number] /
[2020-12-24 16:54] LABS: Glucose,Whole Blood 94 mg/dL (75-99)
[2020-12-24] MEDS: lisinopriL 5 MG TAB PO SCH (17:32)
[2020-12-24] MEDS: CHLORHEXIDINE GLUCONATE 15 ML CUP MUCOUS MEM ONE (17:53)
[2020-12-24] MEDS: PHENYLEPHRINE 40 MG in SODIUM CHLORIDE 0.9% 250 ML IV ONE (17:57)
[2020-12-24] MEDS ORDERED: WARFARIN 7.5 MG TAB PO ONE (18:00)
[2020-12-24 20:26] LABS: Glucose,Whole Blood 110 mg/dL (75-99)
[2020-12-24] MEDS: INSULIN DETEMIR (LEVEMIR) 100 UNIT/ML SYR SQ SCH (22:22)
[2020-12-24] MEDS: MONTELUKAST 10 MG TAB PO SCH (22:23)
[2020-12-24] MEDS: SENNOSIDES-DOCUSATE SODIUM 1 EACH TAB PO SCH (22:23)
[2020-12-24] MEDS: LATANOPROST 0.005% OPHTH DROPS 2.5 ML BTL BOTH EYES SCH (22:27)
[2020-12-25 06:24] LABS: Glucose,Whole Blood 67 mg/dL (75-99)
[2020-12-25 06:50] LABS: Glucose,Whole Blood 51 mg/dL (75-99)
[2020-12-25 06:50] LABS: Glucose,Whole Blood 81 mg/dL (75-99)
[2020-12-25] MEDS: INSULIN ASPART (NovoLOG) 100 UNIT/ML VIAL SQ SCH ×2 (07:05→12:44)
--- NOTE | 2020-12-25 07:24 | XR ---
EXAMINATION TYPE: XR chest 2V DATE OF EXAM: 12/25/2020 COMPARISON: 12/24/2020 INDICATION: Post CABG TECHNIQUE: Frontal and lateral views of the chest are obtained. FINDINGS: The heart size is enlarged. The pulmonary vasculature is normal. There is a small left pleural effusion.. IMPRESSION: 1. Small left pleural effusion and cardiomegaly
[2020-12-25 07:48] LABS: HCT 27.9 % (39.0-53.0); Hypochromasia Slight; MCH 30.8 pg (25.0-35.0); MCHC 32.3 g/dL (31.0-37.0); MCV 95.5 fL (80.0-100.0); Macrocytosis Slight; Mean Platelet Volume 7.7; Platelet Count 375 k/uL (150-450); Poikilocytosis Moderate; RBC 2.92 m/uL (4.30-5.90); RDW 15.9 % (11.5-15.5); WBC 12.9 k/uL (3.8-10.6)
[2020-12-25 07:58] LABS: INR 1.3 (<1.2); Prothrombin Time 13.7 sec (9.0-12.0)
[2020-12-25 08:02] LABS: Calcium 8.2 mg/dL (8.4-10.2); Potassium 4.2 mmol/L (3.5-5.1)
[2020-12-25] MEDS ORDERED: FUROSEMIDE 10 MG/ML 2 ML VIAL IV ONE (08:20)
--- NOTE | 2020-12-25 08:28 | P.PN ---
Subjective Progress Note Date: 12/25/20 Principal diagnosis: Triple-vessel coronary artery disease. Previous medical history of coronary artery disease with PCI to the LAD in 2006, chronic atrial fibrillation on Coumadin for anticoagulation, preserved left ventricular function, hypertension, hyperlipidemia, diet controlled diabetes mellitus, obstructive sleep apnea on home CPAP, previous pituitary tumor, never smoker, daily wine consumption, and family history of premature coronary artery disease with father diagnosed before the age of 55. POD #9 quadruple coronary artery bypass grafting using the left internal mammary artery to the left anterior descending artery, left radial artery from the aorta to the first obtuse marginal artery, reverse saphenous vein graft from the aorta to the second diagonal artery, reverse saphenous vein graft from the aorta to the posterior descending artery, endoscopic harvesting of the left radial artery, endoscopic harvesting of the left greater saphenous vein from ankle to the groin, exclusion of the left atrial appendage using a 40 mm AtriClip, exploratory aortotomy, intraoperative transesophageal echocardiogram and epi- aortic scanning, intraoperative graft flow measurements using the Black coin system Postoperative acute blood loss anemia and thrombocytopenia, expected given hemodilution and cardiopulmonary bypass pump as well as chronic Coumadin use Urinary retention requiring Barrow catheter replacement, expected due to history of BPH The patient was seen and examined this morning on the cardiac step down unit in no acute distress. Denies pain or shortness of breath. Remains in controlled atrial fibrillation, hemodynamically stable. Neurologically intact. Currently on room air, achieving 750 mL on incentive spirometer. He has been ambulatory with therapy although requires motivation, anticipate discharge to [facility] vs home pending insurance authorization for [facility]. Peer to peer was completed yesterday with patient's insurance, unfortunately they do not feel he meets their criteria for IPR. Patient will need rehab at discharge due to need for close physician monitoring, daily lab draws for PT/INR for Coumadin management, as well as for safety concerns. Objective - Vital Signs Vital signs: Vital Signs Temp 98 F 12/25/20 03:47 Pulse 64 12/25/20 03:47 Resp 16 12/25/20 03:47 BP 116/64 12/25/20 03:47 Pulse Ox 94 L 12/25/20 03:47 Intake & Output 12/24/20 12/25/20 12/25/20 18:59 06:59 18:59 Intake Total 50 Output Total 691 713 Balance -641 -713 Weight 93 kg Intake: Oral 50 Output: Urine 690 710 Stool 1 3 Other: Voiding Method Indwelling Catheter Indwelling Catheter # Voids 1,000 ABP, PAP, CO, CI - Last Documented Arterial Blood Pressure 115/51 Pulmonary Artery Pressure 32/17 Cardiac Output 4.4 Cardiac Index 2.2 - Exam CONSTITUTIONAL: Sitting up in recliner, appears comfortable, no acute distress RESPIRATORY: Lungs sounds diminished bilaterally. Respirations even, nonlabored. Currently on room air with oxygen saturation 93%. Able to achieve 750 mL on incentive spirometer. Strong cough CARDIOVASCULAR: S1, S2 present. Irregular rate and rhythm, chronic atrial fibrillation on telemetry. Sternum stable. Palpable peripheral pulses bilaterally. Trace generalized edema present. Heart hugger in place with patient attempting to use appropriately. Antiembolism stockings, SCDs present. GASTROINTESTINAL: Abdomen soft, nontender, nondistended, round. Active bowel sounds present 4 quadrants. Tolerating minimal diet. Positive bowel movement GENITOURINARY: Barrow present draining yellow urine. Output 1400 mL in the last 24 hours INTEGUMENTARY: Skin is warm and dry. Anterior chest incision well approximated. Left radial artery harvest site well approximated. Left lower extremity EVH site well approximated without redness or drainage. NEUROLOGIC: Cranial nerves II through XII intact MUSKULOSKELETAL: Able to move all extremities, strength equal bilaterally PSYCHIATRIC: Alert and oriented to person place and time, calm and cooperative - Allied health notes Allied health notes reviewed: nursing - Labs CBC & Chem 7: 12/25/20 07:09 12/25/20 07:09 Labs: Abnormal Lab Results - Last 24 Hours (Table) 12/24/20 12/24/20 12/25/20 Range/Units 08:24 20:25 06:23 WBC (3.8-10.6) k/uL RBC (4.30-5.90) m/uL Hgb (13.0-17.5) gm/dL Hct (39.0-53.0) % RDW (11.5-15.5) % PT 12.2 H (9.0-12.0) sec INR 1.2 H (<1.2) Sodium (137-145) mmol/L BUN (9-20) mg/dL Glucose (74-99) mg/dL POC Glucose (mg/dL) 110 H 67 L (75-99) mg/dL Calcium (8.4-10.2) mg/dL 12/25/20 12/25/20 12/25/20 Range/Units 06:45 07:09 07:09 WBC 12.9 H (3.8-10.6) k/uL RBC 2.92 L (4.30-5.90) m/uL Hgb 9.0 L (13.0-17.5) gm/dL Hct 27.9 L (39.0-53.0) % RDW 15.9 H (11.5-15.5) % PT 13.7 H (9.0-12.0) sec INR 1.3 H (<1.2) Sodium (137-145) mmol/L BUN (9-20) mg/dL Glucose (74-99) mg/dL POC Glucose (mg/dL) 51 L (75-99) mg/dL Calcium (8.4-10.2) mg/dL 12/25/20 Range/Units 07:09 WBC (3.8-10.6) k/uL RBC (4.30-5.90) m/uL Hgb (13.0-17.5) gm/dL Hct (39.0-53.0) % RDW (11.5-15.5) % PT (9.0-12.0) sec INR (<1.2) Sodium 133 L (137-145) mmol/L BUN 35 H (9-20) mg/dL Glucose 129 H (74-99) mg/dL POC Glucose (mg/dL) (75-99) mg/dL Calcium 8.2 L (8.4-10.2) mg/dL Microbiology - Last 24 Hours (Table) 12/23/20 08:25 Urine Culture - Final Urine,Voided - Imaging and Cardiology Chest x-ray: report reviewed, image reviewed Assessment and Plan Assessment: 1. Triple-vessel coronary artery disease, status post four-vessel CABG 2. Preserved left ventricular function 3. History of coronary artery disease with PCI to the LAD in 2005 4. Chronic atrial fibrillation on Coumadin for anticoagulation, status post exclusion of the left atrial appendage 5. History of hypertension 6. Hyperlipidemia, treated, cholesterol 123, LDL 153, triglycerides 181 7. Diet controlled diabetes mellitus, preoperative hemoglobin A1c 6.2% 8. Obstructive sleep apnea on home CPAP 9. Previous pituitary tumor 10. Never smoker, preoperative FEV1 91% of predicted 11. Daily wine consumption 12. BPH 13. Family history of premature coronary artery disease with father diagnosed b efore the age of 55. 14. Postoperative acute blood loss anemia and thrombocytopenia, expected 15. Urinary retention requiring reinitiation of Barrow catheter, expected Plan: 1. Continue low-dose aspirin, statin, Plavix, beta junito therapy. Will increase beta junito as tolerated. Continue lisinopril for afterload reduction 2. Continue cardizem for radial artery spasm prophylaxis, afib heart rate control. Do not discontinue CCB without discussing with cardiac surgery 3. Bronchodilators per pulmonology. Encourage incentive spirometer use 10 times every hour while awake 4. Increase activity, ambulate as tolerated, PT/OT/cardiac rehab following 5. Will monitor daily labs and x-rays. Electrolyte replacement per protocol. Will give lasix 20 mg IVP x 1 6. GI/DVT prophylaxis 7. Insulin management per primary care service 8. Pain control with current medication regimen 9. Continue Barrow catheter for 1 week before retrial of voiding per urology recommendations, continue Flomax 10. Strict accurate intake and output. Daily weights 11. Will change anticoagulation to Coumadin per patient request. Will need bridge with Eliquis until INR 2-3 [address] discharge to [facility] pending insurance authorization. Patient will need rehab at discharge due to need for close physician monitoring, daily lab draws for PT/INR for Coumadin management, as well as for safety concerns 13. More recommendations to follow based on patient's progress Time with Patient: Greater than 30
[2020-12-25] MEDS: IPRATROPIUM-ALBUTEROL 3 ML NEB INHALATION SCH ×3 (09:04→14:54)
[2020-12-25] MEDS: TAMSULOSIN 0.4 MG CAP.ER.24H PO SCH (09:52)
[2020-12-25] MEDS: PANTOPRAZOLE 40 MG/10 ML VIAL IVP SCH (09:52)
[2020-12-25] MEDS: ATORVASTATIN 40 MG TAB PO SCH (09:52)
[2020-12-25] MEDS: ASCORBIC ACID 500 MG TAB PO SCH (09:52)
[2020-12-25] MEDS: CHOLECALCIFEROL 25 MCG (1000 IU) TABLET PO SCH (09:52)
[2020-12-25] MEDS: DILTIAZEM CD 120 MG CAP.ER.24H PO SCH (09:52)
[2020-12-25] MEDS: ASPIRIN 81 MG PO SCH (09:52)
[2020-12-25] MEDS: METOPROLOL TARTRATE 25 MG TAB PO SCH (09:52)
[2020-12-25] MEDS: APIXABAN 5 MG TAB PO SCH (09:52)
--- NOTE | 2020-12-25 11:50 | P.PN ---
Subjective Progress Note Date: 12/25/20 Principal diagnosis: Coronary artery disease This is a 80-year-old male patient with a history of atrial fibrillation, hyperlipidemia, hypertension, diabetes mellitus. Lifelong nonsmoker. who was found to have severe triple-vessel coronary artery disease with a totally occluded mid LAD and good collaterals and normal ejection fraction. He had been seen and evaluated by Dr. Edmond who recommended coronary artery bypass grafting. He presented here yesterday for elective surgery. He had undergone quadruple coronary artery bypass grafting utilizing a MORAN to the LAD, left radial artery to the first obtuse marginal artery, reverse saphenous vein graft to the second diagonal artery and posterior descending artery. He remains intubated and on the mechanical ventilator this morning. Current settings are assist-control mode at a rate of 12, tidal volume 500, FiO2 50% and a PEEP of 5. Morning blood gases revealed a P O2 of 76, pCO2 39, pH 7.43. He was found to the cardiac output of 3.5. Cardiac index of 1.8. Mediastinal chest tube with 1.3 L output in the past 24 hours. Left chest tube 900 mL output. He has a right internal jugular [place] catheter in place. Right arterial line in place. Left radial harvest site dressing dry and intact. ADOLFO in place. He is currently on a milrinone drip at 0.2 mg/kg/m. Insulin drip at 3 units per hour. Norepinephrine at 0.05 mcg/kg/m. Marcus-Synephrine at 0.8 mcg/kg/m. Propofol at 25 mcg/kg/m. 0.9 normal saline at 50 MLS per hour. He did have episode of atrial fibrillation with rapid ventricular response and received digoxin IV. He also has received albumin. 2 units of fresh frozen plasma. One unit of packed red blood cells. White count 9.3. Hemoglobin 8.6. Platelet count 97,000. INR 1.2. Fibrinogen 216. Sodium 139. Potassium 4.0. Bicarb 25. Creatinine 0.81. Glucose 132. Total protein 4.7. Albumin 3.0. Chest x-ray reveals cardiomegaly and chronic parenchymal changes with a small left pleural effusion and left greater than right bibasilar acute atelectasis. Mediastinal and left chest tubes in place. No pneumothorax seen. The patient is seen today 12/18/2020 in follow-up in intensive care unit. He was successfully extubated yesterday at approximately 12:45 PM. He is awake and alert in no acute distress. He is on 5 L nasal cannula and maintaining O2 saturations in the 90s. Chest x-ray reveals interval extubation. Cardiomegaly and chronic parenchymal changes with small left greater than right bibasilar acute atelectasis. Left-sided chest tube in place without evidence of pneumothorax. Mediastinal tubes in place. Right internal jugular catheter remains in place. Right radial arterial blood glucose. Current AV pacer wires in place. Remains in atrial fibrillation with controlled ventricular response. Cardiac output 4.1. Cardiac index 2.1. PA pressures 29/12. CVP is 6. He remains on milrinone at 0.1 mg/kg per minute. Insulin drip at 3 units an hour. 0.9 normal saline at 30 MLS per hour. He is pulling approximate 500-750 MLS on the incentive spirometer. Currently up in a recliner at the bedside. Heparin for DVT prophylaxis. The patient is seen today 12/19/2020 in follow-up in the intensive care unit. Postoperative day #3. He is currently sitting up in a chair at the bedside. Awake and alert in no acute distress. He was having some periods of confusion. lead burner apprentice is at the bedside. He is maintaining O2 saturations in the mid 90s on room air. He is off most drips. He is still on insulin at 5 units per hour. 0.9#20 MLS per hour. Mediastinal chest tube has remain in place with 120 ML's house and 60 ML's of the left chest. He is remaining in sinus rhythm. Pacer wires have been removed. Needs increased encouragement regarding use the incentive spirometer. Chest x-ray reveals postoperative changes with small layering pleural effusions and some improvement in the atelectasis at the left base. If he did require 2 units of fresh frozen plasma one unit of red blood cells this admission. White count 16.2. Hemoglobin 8.9. Platelets 116. Sodium 137. Potassium 4.2. Bicarb 20. Creatinine 0.84. AST 104. ALT 114. Heparin for DVT prophylaxis. The patient is seen today 12/23/2020 in follow-up in the intensive care unit. He is currently sitting up in a chair at the bedside. Awake and alert in no acute distress. Maintaining good O2 saturations in the 90s on room air. No IV fluids. Chest x-ray reveals low lung volumes and cardiomegaly with central venous congestion and small bilateral pleural effusions. No significant change compared to yesterday. He needs increased encouragement regarding the use of th e incentive spirometer and cough and deep breathing exercises. White count 14.6. Hemoglobin 8.9. Sodium 133. Potassium 4.1. Bicarb 24. Creatinine 0.89. Glucose 113. Urinalysis with moderate blood, increased WBCs. He was given 20 mg of Lasix IVP 1 this morning. Remains on bronchodilators. Anticoagulated with Eliquis. He is status post 2 units of fresh was a plasma one unit of packed red blood cells this admission. Plan is for inpatient rehabilitation post discharge. The patient is seen today 12/24/2020 in follow-up on the intensive care unit. He is currently sitting up in a chair. Awake and alert in no acute distress. He is maintaining O2 saturation in the 90s on room air. Chest x-ray reveals similar findings. Basilar effusions and possible associated atelectasis. White count 13.3. Hemoglobin 9.7. Platelets 368. Sodium 135. Potassium 3.9. Creatinine 1.11. He's been initiated on Eliquis but he feels he has GI issues. He may be switched to warfarin or Xarelto. He was given Lasix 20 mg IVP 1 this morning. The patient is seen today 12/25/2020 in follow-up on the selective care unit. He is awake and alert in no acute distress. Currently sitting up in a chair at the bedside. Denies any worsening shortness of breath, cough or congestion. Currently on room air. He remains in atrial fibrillation with a controlled ventricular response. So pulling only about 750 MLS on the incentive spirometer. His x-ray reveals a small left pleural effusion and cardiomegaly. Yesterday's ultrasound did reveal a right-sided pleural effusion measuring 8.9 cm and a left pleural effusion measuring 7.4 cm. He is currently on Eliquis and being transitioned to warfarin. INR 1.3. He is status post 1 unit of packed red blood cells and 2 units of fresh frozen plasma this admission. Current hemoglobin 9.0. Platelet count 375. White count 12.9. Sodium 133. Potassium 4.2. Creatinine 1.14. Glucose 129. Objective - Vital Signs Vital signs: Vital Signs Temp 97.6 F 12/25/20 07:54 Pulse 90 12/25/20 09:19 Resp 16 12/25/20 07:54 BP 110/62 12/25/20 07:54 Pulse Ox 95 12/25/20 07:54 Intake & Output 12/24/20 12/25/20 12/25/20 18:59 06:59 18:59 Intake Total 50 Output Total 691 713 Balance -641 -713 Weight 93 kg Intake: Oral 50 Output: Urine 690 710 Stool 1 3 Other: Voiding Method Indwelling Catheter Indwelling Catheter Indwelling Catheter # Voids 1,000 ABP, PAP, CO, CI - Last Documented Arterial Blood Pressure 115/51 Pulmonary Artery Pressure 32/17 Cardiac Output 4.4 Cardiac Index 2.2 - Exam GENERAL EXAM: Awake, alert 80-year-old gentleman, up in a recliner, on room air, no apparent distress. HEAD: Normocephalic. EYES: Normal reaction of pupils, equal size. NOSE: Clear with pink turbinates. THROAT: No erythema or exudates. NECK: No masses, no JVD. CHEST: Sternal dressing dry and intact. Heart hugger in place. LUNGS: Equal air entry with faint crackles in the bases. CVS: S1 and S2 normal with no audible murmur, irregular rhythm. ABDOMEN: No hepatosplenomegaly, normal bowel sounds, no guarding or rigidity. SPINE: No scoliosis or deformity SKIN: No rashes CENTRAL NERVOUS SYSTEM: Alert, oriented 2, tone is normal in all 4 extremities. EXTREMITIES: There is trace peripheral edema. No clubbing, no cyanosis. Peripheral pulses are intact. - Labs CBC & Chem 7: 12/25/20 07:09 12/25/20 07:09 Labs: Abnormal Lab Results - Last 24 Hours (Table) 12/24/20 12/25/20 12/25/20 Range/Units 20:25 06:23 06:45 WBC (3.8-10.6) k/uL RBC (4.30-5.90) m/uL Hgb (13.0-17.5) gm/dL Hct (39.0-53.0) % RDW (11.5-15.5) % PT (9.0-12.0) sec INR (<1.2) Sodium (137-145) mmol/L BUN (9-20) mg/dL Glucose (74-99) mg/dL POC Glucose (mg/dL) 110 H 67 L 51 L (75-99) mg/dL Calcium (8.4-10.2) mg/dL 12/25/20 12/25/20 12/25/20 Range/Units 07:09 07:09 07:09 WBC 12.9 H (3.8-10.6) k/uL RBC 2.92 L (4.30-5.90) m/uL Hgb 9.0 L (13.0-17.5) gm/dL Hct 27.9 L (39.0-53.0) % RDW 15.9 H (11.5-15.5) % PT 13.7 H (9.0-12.0) sec INR 1.3 H (<1.2) Sodium 133 L (137-145) mmol/L BUN 35 H (9-20) mg/dL Glucose 129 H (74-99) mg/dL POC Glucose (mg/dL) (75-99) mg/dL Calcium 8.2 L (8.4-10.2) mg/dL Microbiology - Last 24 Hours (Table) 12/23/20 08:25 Urine Culture - Final Urine,Voided Assessment and Plan Assessment: 1 Severe triple-vessel coronary artery disease status post coronary artery bypass grafting 4. 2 Bilateral pleural effusions 3 Previous history of coronary artery disease with PCI to the LAD in 2005 4 History of atrial fibrillation, anticoagulated with warfarin in the outpatient setting 5 Hypertension 6 Hyperlipidemia 7 Diabetes mellitus 8 History of obstructive sleep apnea, CPAP 9 History of pituitary tumor 10 Lifelong nonsmoker. FEV1 value of 91% of predicted Plan: The patient was seen and evaluated by Dr. Mcmillan Ultrasound of the chest reviewed He will discuss with CT services for possible thoracentesis The patient is currently anticoagulated We will continue to follow I, the cosigning physician, performed a history & physical examination of the patient. Lungs sounds faint crackles in the posterior bases. Maintaining good O2 saturations in the 90s on room air. I discussed the assessment and plan of care with my nurse practitioner, Alisson Otero. I attest to the above note as dictated by her.
[2020-12-25 11:57] LABS: Glucose,Whole Blood 153 mg/dL (75-99)
[2020-12-25] MEDS ORDERED: ALBUMIN HUMAN 5% 250 ML in EMPTY BAG 1 BAG IVPB STA (12:02)
[2020-12-25] MEDS: lisinopriL 5 MG TAB PO SCH (12:38)
--- NOTE | 2020-12-25 13:32 | P.PN ---
Subjective Progress Note Date: 12/25/20 HISTORY OF PRESENT ILLNESS: Patient is s/p CABG x 4. Patient examined this morning. He is sitting up in the chair. He denies chest pain or pressure. Denies shortness of breath. He reports he was up ambulating in the hallway this morning. Telemetry reveals atrial fibrillation with controlled ventricular rates. He remains on Coumadin. INR 1.3. PHYSICAL EXAM: VITAL SIGNS: Reviewed. GENERAL: Well-developed in no acute distress. NECK: Supple. No JVD or thyromegaly LUNGS: Respirations even and unlabored. Lungs diminished to auscultation bilaterally. HEART: Irregular rate and rhythm. S1 and S2 heard. Heart hugger present. EXTREMITIES: Normal range of motion. No clubbing or cyanosis. Peripheral pulses intact. Trace bilateral lower extremity edema ASSESSMENT: Coronary artery disease, s/p CABG x 4 History of stenting to LAD, 2005 Chronic persistent atrial fibrillation, on anticoagulation with Coumadin Hypertension Hyperlipidemia Obstructive sleep apnea with home CPAP use PLAN: Continue current cardiac medications Continue Coumadin. Monitor INR. Bridging with Eliquis per CTS. Encourage use of incentive spirometer Increase activity as tolerated Further recommendations pending patient course Nurse practitioner note has been reviewed by physician. Signing provider agrees with the documented findings, assessment, and plan of care. Objective - Vital Signs Vital signs: Vital Signs Temp 97.6 F 12/25/20 07:54 Pulse 90 12/25/20 09:19 Resp 16 12/25/20 07:54 BP 78/54 12/25/20 11:57 Pulse Ox 95 12/25/20 07:54 Intake & Output 12/24/20 12/25/20 12/25/20 18:59 06:59 18:59 Intake Total 50 Output Total 691 713 Balance -641 -713 Weight 93 kg Intake: Oral 50 Output: Urine 690 710 Stool 1 3 Other: Voiding Method Indwelling Catheter Indwelling Catheter Indwelling Catheter # Voids 1,000 ABP, PAP, CO, CI - Last Documented Arterial Blood Pressure 115/51 Pulmonary Artery Pressure 32/17 Cardiac Output 4.4 Cardiac Index 2.2 - Labs CBC & Chem 7: 12/25/20 07:09 12/25/20 07:09 Labs: Abnormal Lab Results - Last 24 Hours (Table) 12/24/20 12/25/20 12/25/20 Range/Units 20:25 06:23 06:45 WBC (3.8-10.6) k/uL RBC (4.30-5.90) m/uL Hgb (13.0-17.5) gm/dL Hct (39.0-53.0) % RDW (11.5-15.5) % PT (9.0-12.0) sec INR (<1.2) Sodium (137-145) mmol/L BUN (9-20) mg/dL Glucose (74-99) mg/dL POC Glucose (mg/dL) 110 H 67 L 51 L (75-99) mg/dL Calcium (8.4-10.2) mg/dL 12/25/20 12/25/20 12/25/20 Range/Units 07:09 07:09 07:09 WBC 12.9 H (3.8-10.6) k/uL RBC 2.92 L (4.30-5.90) m/uL Hgb 9.0 L (13.0-17.5) gm/dL Hct 27.9 L (39.0-53.0) % RDW 15.9 H (11.5-15.5) % PT 13.7 H (9.0-12.0) sec INR 1.3 H (<1.2) Sodium 133 L (137-145) mmol/L BUN 35 H (9-20) mg/dL Glucose 129 H (74-99) mg/dL POC Glucose (mg/dL) (75-99) mg/dL Calcium 8.2 L (8.4-10.2) mg/dL 12/25/20 Range/Units 11:54 WBC (3.8-10.6) k/uL RBC (4.30-5.90) m/uL Hgb (13.0-17.5) gm/dL Hct (39.0-53.0) % RDW (11.5-15.5) % PT (9.0-12.0) sec INR (<1.2) Sodium (137-145) mmol/L BUN (9-20) mg/dL Glucose (74-99) mg/dL POC Glucose (mg/dL) 153 H (75-99) mg/dL Calcium (8.4-10.2) mg/dL Microbiology - Last 24 Hours (Table) 12/23/20 08:25 Urine Culture - Final Urine,Voided
--- NOTE | 2020-12-25 14:50 | P.DS ---
Providers Date of admission: 12/16/20 05:44 Expected date of discharge: 12/25/20 Attending physician: Jazmine Edmond Consults: 12/16/20 16:12 Consult Physician Routine Consulting Provider: Guzman Vásquez Consult Reason/Comments: Occupational Health Physiotherapist Consult: post cardiac surgery Do you want consulting provider notified?: Yes Consult Physician Routine Consulting Provider: Cipriano Campos Consult Reason/Comments: med mgmt Do you want consulting provider notified?: Yes Consult Physician Routine Consulting Provider: Dash Burns Consult Reason/Comments: Plaster Helper Consult: post cardiac surgery Do you want consulting provider notified?: Yes 12/22/20 07:17 Consult Physician Routine Consulting Provider: Jose Hansen Consult Reason/Comments: Evaluate for inpatient rehab Do you want consulting provider notified?: Yes 12/22/20 11:01 Consult Physician Routine Consulting Provider: Olvin Vega Consult Reason/Comments: urine retention Do you want consulting provider notified?: Yes Primary care physician: [facility] Course: FINAL DIAGNOSIS: 1. Triple-vessel coronary artery disease 2. Preserved left ventricular function 3. History of coronary artery disease with PCI to the LAD in 2005 4. Chronic atrial fibrillation on Coumadin for anticoagulation 5. History of hypertension 6. History of hyperlipidemia, treated, cholesterol 123, LDL 153, triglyceride 181 7. Diet-controlled diabetes mellitus, preoperative hemoglobin A1c 6.2% 8. Obstructive sleep apnea on home CPAP 9. Previous pituitary tumor 10. Never smoker, preoperative FEV1 91% of predicted 11. Daily wine consumption 12. BPH 13. Family history of premature coronary artery disease 14. Postoperative acute blood loss anemia and thrombocytopenia, expected 15. Urinary retention requiring reinitiation of Barrow catheter, expected PRINCIPAL PROCEDURE: 1. Quadruple coronary artery bypass grafting using the left internal mammary artery to the left anterior descending artery, left radial artery from the aorta to the first obtuse marginal artery, reverse saphenous vein graft from the aorta to the second diagonal artery, reverse saphenous vein graft from the aorta to the posterior descending artery 2. Endoscopic harvesting of the left radial artery 3. Endoscopic harvesting of the left greater saphenous vein from ankle to the groin 4. Exclusion of the left atrial appendage using a 40 mm AtriClip 5. Exploratory aortotomy 6. Intraoperative transesophageal echocardiogram and epi-aortic scanning 7. Intraoperative graft flow measurements using the [employer] system HISTORY OF PRESENT ILLNESS: This is a 80-year-old gentleman who follows on an outpatient basis with Dr. Campos for primary care and Dr. Mullins for cardiology. Over the last several weeks the patient describes symptoms of progressive dyspnea on exertion, increased fatigue, and increased tiredness that he states started when we had humid weather at the end of the summer. He denied any chest pain, nausea, vomiting, diaphoresis, or any other symptomatology. Due to the concern for progression of coronary artery disease he underwent elective heart catheterization which demonstrated proximal LAD stenosis 90%, 99% stenosis after the take off of 2 diagonal branches, 100% stenosis at the distal end of his previous stent, 90% stenosis of the circumflex coronary artery prior to the takeoff of the first obtuse marginal artery, second obtuse marginal branch with 99% stenosis, and mid RCA stenosis 67%. LV gram was performed at that time demonstrating normal left ventricular size and function with EF 60%, no mitral regurgitation and no gradient across the aortic valve. Cardiothoracic surgery was consulted and the patient was was recommended to undergo coronary artery bypass grafting. The usual perioperative course was discussed in detail with the patient and his family, all risks and benefits were explained, all questions were answered. The patient initially refused open heart surgery, however after some reflection the patient was agreeable and followed up with Dr. Edmond for surgical planning. He did consent to surgery and it was scheduled at the earliest possible date. Patient was fully vaccinated with Moderna vaccine. HOSPITAL COURSE: The patient was brought to the hospital on 12/16/2020, taken to the preoperative area, prepared in the usual fashion, and subsequently taken to the operating room where Dr. Edmond performed four-vessel CABG. Upon completion of surgery the patient was transferred to the cardiovascular intensive care unit where he was recovered and monitored hemodynamically. He was extubated, all lines, tubes, and drips were discontinued when appropriate, and transfer orders were placed for 3 S. cardiac stepdown unit, however there was no bed availabili ty and the patient remained on ICU as a stepdown patient until discharge. He had urinary retention requiring reinitiation of Barrow catheter. His oxygen was titrated down, he continued to work with physical and occupational therapy, he was tolerating oral diet, his pain was controlled, and he was ready to be discharged to [facility] for sub-acute rehab on postoperative day #9. He received written and verbal instruction regarding his medications, activity restrictions, signs and symptoms requiring physician notification, and follow-up appointments. Barrow catheter to be discontinued after 1 week for trial void. Patient to remain on Eliquis as bridge until Coumadin level therapeutic with INR 2-3. Patient Condition at Discharge: Stable Plan - Discharge Summary Discharge Rx Participant: No New Discharge Prescriptions: New Ipratropium-Albuterol Nebulize [Duoneb 0.5 mg-3 mg/3 ml Soln] 3 ml INHALATION RT-Q2H PRN ml PRN Reason: Shortness Of Breath Or Wheezing Apixaban [Eliquis] 5 mg PO BID tab Tamsulosin [Flomax] 0.4 mg PO PC-BRKFST Acetaminophen Tab [Tylenol] 650 mg PO Q4HR PRN tab PRN Reason: Fever And/ Or Pain Atorvastatin [Lipitor] 40 mg PO DAILY tab Metoprolol Tartrate [Lopressor] 75 mg PO BID tab INSULIN ASPART (NovoLOG) [NovoLOG (formulary)] 0 unit SQ ACHS ml Sennosides-Docusate Sodium [Senokot-S] 2 each PO HS PRN tab PRN Reason: Constipation lisinopriL [Zestril] 5 mg PO DAILY@1200 tab Continue Cholecalciferol [Vitamin D3 (25 Mcg = 1000 Iu)] 25 mcg PO DAILY Ascorbic Acid [Vitamin C] 500 mg PO DAILY Warfarin [Coumadin] 2.5 mg PO SUMOTUTHSA Esomeprazole Magnesium [NexIUM] 40 mg PO HS Calcium Carbonate [Calcium] 300 mg PO DAILY Warfarin [Coumadin] 5 mg PO WEFR Montelukast [Singulair] 10 mg PO HS Aspirin 81 mg PO DAILY chew Latanoprost/Pf [Latanoprost 0.005% Eye Drop] 1 drop BOTH EYES HS Diltiazem Cd [Cardizem CD] 120 mg PO DAILY Discontinued atenoloL 25 mg PO DAILY Ezetimibe/Simvastatin [Vytorin 10-40 mg Tablet] 1 tab PO DAILY lisinopriL [Zestril] 20 mg PO DAILY Isosorbide Mononitrate ER [Imdur] 30 mg PO DAILY #30 tab.er.24h Aspirin EC [Ecotrin] 325 mg PO DAILY Nitroglycerin Sl Tabs [Nitrostat] 0.4 mg SUBLINGUAL Q5M PRN #25 tab PRN Reason: Chest Pain Discharge Medication List Ascorbic Acid [Vitamin C] 500 mg PO DAILY 04/29/15 [History] Cholecalciferol [Vitamin D3 (25 Mcg = 1000 Iu)] 25 mcg PO DAILY 04/29/15 [History] Esomeprazole Magnesium [NexIUM] 40 mg PO HS 04/29/15 [History] Warfarin [Coumadin] 2.5 mg PO SUMOTUTHSA 04/29/15 [History] Calcium Carbonate [Calcium] 300 mg PO DAILY 04/30/16 [History] Diltiazem Cd [Cardizem CD] 120 mg PO DAILY 06/10/20 [History] Latanoprost/Pf [Latanoprost 0.005% Eye Drop] 1 drop BOTH EYES HS 06/10/20 [History] Montelukast [Singulair] 10 mg PO HS 06/10/20 [History] Warfarin [Coumadin] 5 mg PO WEFR 06/10/20 [History] Aspirin 81 mg PO DAILY chew 10/30/20 [Rx] Acetaminophen Tab [Tylenol] 650 mg PO Q4HR PRN tab 12/25/20 [Rx] Apixaban [Eliquis] 5 mg PO BID tab 12/25/20 [Rx] Atorvastatin [Lipitor] 40 mg PO DAILY tab 12/25/20 [Rx] INSULIN ASPART (NovoLOG) [NovoLOG (formulary)] 0 unit SQ ACHS ml 12/25/20 [Rx] Ipratropium-Albuterol Nebulize [Duoneb 0.5 mg-3 mg/3 ml Soln] 3 ml INHALATION RT-Q2H PRN ml 12/25/20 [Rx] Metoprolol Tartrate [Lopressor] 75 mg PO BID tab 12/25/20 [Rx] Sennosides-Docusate Sodium [Senokot-S] 2 each PO HS PRN tab 12/25/20 [Rx] Tamsulosin [Flomax] 0.4 mg PO PC-BRKFST 12/25/20 [Rx] lisinopriL [Zestril] 5 mg PO DAILY@1200 tab 12/25/20 [Rx] Follow up Appointment(s)/Referral(s): Guzman Vásquez MD [STAFF PHYSICIAN] - 1 Week (Please call for appointment upon discharge from [facility]) Rachael Mullins MD [STAFF PHYSICIAN] - 1 Week (Please call for appointment upon discharge from [facility]) Rehab [facility],Cardiac [NON-STAFF] - 4 Weeks (You will be called in 4 weeks for evaluation for cardiac rehab) Jazmine Edmond MD [STAFF PHYSICIAN] - 01/16/21 10:15 am [facility], [NON-STAFF] - 1-2 Days (Please call to set up upon discharge from [facility]) Cipriano Campos MD [Primary Care Provider] - 1 Week (Please call for appointment upon discharge from [facility]) Olvin Vega MD [STAFF PHYSICIAN] - 1 Week (Please call for appointment upon discharge from [facility] ) Ambulatory/Diagnostic Orders: Complete Blood Count w/diff [LAB.AMB] Time Frame: 3 Days, Location: None Selected Comprehensive Metabolic Panel [LAB.AMB] Time Frame: 3 Days, Location: None Selected Prothrombin Time INR [LAB.AMB] Location: None Selected Activity/Diet/Wound Care/Special Instructions: Dr. Campos to see patient while at [facility] PT/INR to be drawn as STAT lab daily until goal INR reached 2-3 Barrow cath to stay in for 1 week, then discontinue and trial void Patient was fully vaccinated for Covid with Moderna vaccine DISCHARGE INSTRUCTIONS: 1. No driving for 4 weeks, or until physician gives their ok. 2. The patient should sleep in their own bed, no medical bed needed. 3. Stairs are not an issue. If the bedroom is upstairs, it is advised that the patient go up at night and down in the morning for the first week. Go slowly, using handrail and take 1 step at a time. 4. HA hose are to be worn for 30 days or until physician discontinues. 5. Heart hugger is to be worn 100% of the time until physician discontinues.(except when showering) 6. No lifting, pushing, or pulling more than 10 pounds for 12 weeks. The physician will advise of any restriction changes. 7. The patient is expected to continue the prescribed walking program. 8. Continue pain control per as needed orders. 9. Continue with incentive spirometry and splinting/heart hugger until otherwise directed by the physician. 10. Must shower daily using liquid antibacterial soap and a separate white washcloth for each individual incision. 11. Routine sternal incision care. No powders, lotions, ointments on incisions. No dressings are necessary on incisions unless they are draining. Dermabond tape is to remain on sternal incision until surgeon follow-up. 12. Please call surgeon/DENTAL FINANCIAL COORDINATOR for temp greater than 101 F or purulent drainage from incisions. 13. All prescription refills need to be filled through pensionholder information clerk/primary care physician. 14. A Red armband has been placed on the patient. It should be worn for 30 days post surgery and will be removed by the cardiac surgeons. If an ER visit is necessary, please make sure the number on the Red armband is called. 15. You have been referred to and are expected to begin Cardiac Rehab in approximately 4-6 weeks. 16. Eliquis to continue as bridge until Coumadin level is therapeutic at INR 2- 3 HOME HEALTH SERVICES TO PROVIDE UPON DISCHARGE FROM [facility]: RN SKILLED HOME CARE SERVICES FOR POST-OP SURGICAL PATIENTS WITH THE FOLLOWING: Coronary Artery Bypass Surgery (CABG), Mitral Valve Replacement/Repair ( MVR), Aortic Valve Replacement/Repair (AVR) RN TO CONTINUE EDUCATION FROM ``ROAD TO A HEALTH HEART PATIENT EDUCATION MANUAL (GIVEN TO PATIENT IN THE HOSPITAL) MEDICATION RECONCILIATION WITH EDUCATION NEEDED ON FIRST HOME VISIT EMPHASIZE IMPORTANCE OF WEARING BREAST SUPPORT/HEART HUGGER ENCOURAGE USE OF INCENTIVE SPIROMETER 10 X EVERY HOUR WHILE AWAKE ENCOURAGE UTILIZATION OF LOWER EXTREMITY COMPRESSION STOCKINGS/HA HOSE and ELEVATE LEGS ABOVE LEVEL OF HEART WHILE AT REST. ENCOURAGE AMBULATION 3-5x/day INCREASING TOLERATES, WHILE AVOIDING EXTREMES IN TEMPERATURE FREQUENCY: RN TO OPEN THE PATIENT WITHIN 24 HOURS OF DISCHARGE FROM [facility] WITH TELEHEALTH INSTALLED AT [facility], RN TO VISIT 2-3 X A WEEK FOR 4 WEEKS ESTABLISHED BY PATIENT NEEDS. LABORATORY: CBC, CMP TO BE DRAWN ON THE THIRD DAY HOME, (RAN STAT) FAX RESULTS TO [phone]. TELEHEALTH PARAMETERS: WEIGHT: NOTIFY MD OF WEIGHT GAIN OF 2 LBS IN 24 HOURS OR 5 LBS IN ONE WEEK HR: NOTIFY MD OF HR <55 BPM OR HR>100 BPM BP: NOTIFY MD IF BP <90/55 OR BP>140/100 O2 SAT: NOTIFY MD IF PO2<93% ON ROOM AIR SEND TELEHEALTH REPORT TO MEDIA PLANNER / BUYER AND CARDIOVASCULAR SURGEON THE FIRST WEEK OF CARE AND THEN BI-WEEKLY. PLEASE ADDITIONALLY COMMUNICATE ANY ABNORMALS AND NEW FINDINGS TO THE SURGEONS OFFICE. Discharge Disposition: TRANSFER TO SNF/ECF
[2020-12-25 16:25] VITALS: BP 89/62; PULSE 69; RESP 17; TEMP 96
[2020-12-25] MEDS ORDERED: WARFARIN 7.5 MG TAB PO ONE (18:00)
--- NOTE | 2020-12-26 15:50 | P.PN ---
Subjective Progress Note Date: 12/25/20 HISTORY OF PRESENT ILLNESS This is a 80-year-old male patient of Dr. Campos and Dr. Mullins with past medical history of chronic persistent atrial fibrillation, diabetes mellitus type 2, hypertension, hyperlipidemia, history of pituitary tumor resection, obstructive sleep apnea on BiPAP, gastroesophageal reflux disease, benign prostatic hypertrophy. He should also has history of coronary artery disease status post PCI to the LAD in 2005, heart catheterization in October 2020 found severe triple-vessel disease, subsequently admitted to the hospital for elective coronary artery bypass grafting 12/16 MORAN to LAD, left radial artery from the aorta to the first obtuse marginal artery, reverse saphenous vein graft from the aorta to the second diagonal artery, reverse saphenous vein graft from the aorta to the posterior descending artery, endoscopic harvesting of the left radial artery, endoscopic harvesting of the left greater saphenous vein from ankle to the groin, exclusion of the left atrial appendage. Patient is seen today in the intensive care unit. He remains intubated and on mechanical ventilation but has done well with sedation holiday and is expected to be extubated this morning. Patient's is at the bedside. He is currently on insulin drip at 3 units p er hour. Vent settings are tidal volume 500, FiO2 50 and PEEP of 5. cafeteria monitor is atrial fibrillation rate controlled. 12/18: Patient has been successfully extubated and is found today sitting in a chair in the intensive care unit. He states his pain is controlled. He denies having any abdominal pain and no diarrhea. He is having good urine output of 35-45 mL per hour. Blood sugars are running between 120 and 150. Patient is on insulin drip and will plan to see transition to Levemir 12 units tonight along with NovoLog scale before meals and at bedtime. Patient is followed by multiple consultants. Patient's and daughter are at bedside. 12/19: Patient had some delirium last night, he is not sleeping silently during the night and drowsy during the day with naps. He is utilizing his CPAP which is been brought from home. Patient is not very motivated to participate with P T. Ensure will be added as he is not eating well. He is complaining of pain in the mid abdomen. No bowel movement since admission. Patient will have the clock suppository today. He has been transitioned to Levemir and NovoLog scale and blood sugars have been stable running 115-130. He has been ordered for a dose of IV Lasix today. Pacer wires have been removed mediastinal and left chest tube in place. Blood work reveals WBC 16.2, hemoglobin 8.9, platelet count 116. Sodium 137, potassium 4.2, chloride 111, CO2 20, BUN 25 creatinine 0.84. Total bilirubin 1.3, AST 104, ALT 117, alkaline phosphatase 54. Patient has been afebrile, heart rate in the 70s and 80s, blood pressure 115/51, pulse ox 95% on room air. cafeteria monitor is a sinus rhythm. 12/20: Patient is found sitting up in the chair in minimal distress, complaining of shortness of breath. Patient remains in the ICU. He was up ambulating within the room. Patient has more motivation compared to yesterday. Patient has no other complaints or concerns. His Lasix was held. However he continues to have edema to lower extremities. Jade BC 16.3, hemoglobin 9.6, platelet count 171, sodium 139, potassium 4.0, BUN 34, creatinine 0.82. Patient remained afebrile, telemetry monitor shows sinus rhythm with a heart rate of 72, blood pressure 129/72 respirations 11, pulse ox 97% on room air. 12/21: Patient is found sitting up in the chair in no acute distress, no complaints of shortness of breath or chest pain today. Patient remains in the ICU. He has been ambulating in the room. Patient's activity level and motiva tion continues to increase. No other complaints or concerns noted. Patient remains afebrile, heart rate 82, respirations 25, blood pressure 93/70, 98% on room air. Jade BC 13.9, hemoglobin 9.3, platelets 212, potassium 3.6, BUN 31, creatinine 0.89. 12/22: Patient is seen today in intensive care unit. Patient is resting in chair. He has been seen this morning by Dr. Hansen for possible inpatient rehab. Patient has also been seen by urology. Barrow catheter required replacement with recommendations from urology to maintain this for one week and then start voiding trial in rehab. Patient is able to void then patient to follow-up as needed, if unable to void then follow-up and continue Flomax. Cardiology continues to follow. 12/23: Patient remains in the intensive care unit and is resting in recliner, brother is at bedside. Patient has been afebrile, heart rate in the 80s, blood pressure 100/54, pulse ox 98% on room air. cafeteria monitor is atrial fibrillation rate controlled. Repeat blood work reveals WBC 14.6, hemoglobin 8.9, platelet count 264. Sodium 133, BUN 25 creatinine 0.89. Blood sugars are running between 79 and 116. Urinalysis revealed LAD moderate, leukoesterase large, RBCs 38, wbc's 44. Repeat chest x-ray reveals low lung volumes and cardiomegaly with central vascular congestion and small bilateral pleural effusions. Patient is reaching 1500 mL on incentive spirometry. Barrow catheter remains in place. He has been seen by PT and OT with recommendations for inpatient rehab. Patient's been seen by Dr. Hansen and appears to be a good candidate for inpatient rehab. 12/24: Patient remains in the intensive care unit but has been downgraded to cardiac stepdown unit. He has been started on eliquis as bridge and also started on Coumadin with plan to bridge until INR is 2-3. Patient is afebrile, heart rate 7790s, blood pressure 114/68, pulse ox 8700% on room air. INR 1.2. Blood sugars are running between 78 and 157. Patient has been accepted at [facility] for inpatient rehab and waiting for peer to peer for insurance authorization 12/25: Patient seen today on the cardiac stepdown unit. He is having trouble getting from bed to chair he needs help with this. He had a bowel movement this morning is quite tired afterwards. Patient's states that he has not been following instructions of not using incentive spirometry despite patient telling staff he is. He continues to not eat well. He's been afebrile, heart rate 60, blood pressure 110/62, pulse ox 95% on room air. Insurance authorization has declined patient for inpatient rehab as he is not able to tolerate that therapy. He has been accepted to [facility] and is scheduled for discharge to [facility] today. REVIEW OF SYSTEMS Constitutional: No fever, no chills, no night sweats. No weight change. Reports generalized weakness, reports fatigue reports lethargy. Reports daytime sleepiness. EENT: No headache. No blurred vision or double vision, no loss of vision. No loss of Hearing, no ringing in the ears, no dizziness. No nasal drainage or congestion. No epistaxis. No sore throat. Lungs: No shortness of breath, cough, no sputum production. No wheezing. Cardiovascular: No chest pain, no lower extremity edema. No palpitations. No paroxysmal nocturnal dyspnea. No orthopnea. No lightheadedness or dizziness. No syncopal episodes. Abdominal: No abdominal pain. No nausea, vomiting. No diarrhea. No constipation. No bloody or tarry stools. Reports loss of appetite. Genitourinary: No dysuria, increased frequency, urgency. Reported urinary retention. Musculoskeletal: No myalgias. Reports muscle weakness, no gait dysfunction, no frequent falls. No back pain. No neck pain. Integumentary: No wounds, no lesions. No rash or pruritus. No unusual bruising. Neurologic: No aphasia. No facial droop. Reports during the night change in mentation. No head injury. No headache. No paralysis. No paresthesia. Psychiatric: No depression. No anxiety. Endocrine: No abnormal blood sugars. PHYSICAL EXAMINATION Gen: This is a 80-year-old male. He is resting in a chair in the intensive care unit. is at bedside. Patient does not appear to be in any acute distress. HEENT: Head is atraumatic, normocephalic. Pupils equal, round. Sclerae is anicteric. NECK: Supple. No JVD. No lymphadenopathy. No thyromegaly. LUNGS: Diminished bilaterally. No wheezes or rhonchi. No intercostal retractions. HEART: Irregular rate and rhythm. No murmur. cafeteria monitor sinus rhythm. ABDOMEN: Soft. Bowel sounds are present. No masses. No tenderness. Barrow in place. EXTREMITIES: 1+ pedal edema. No calf tenderness. NEUROLOGICAL: Patient is awake, and oriented 3. No neuro deficits noted. ASSESSMENT AND PLAN 1. Coronary artery disease status post 4 vessel CABG 12/16. Continue current management per cardio thoracic surgery. Continue aspirin 81 mg daily, Lipitor 40 mg daily, Lopressor 75 mg twice daily 2. Chronic persistent atrial fibrillation. Continue Lopressor, Cardizem CD 120 mg daily. Patient is resumed on eliquis 5 mg twice daily and Coumadin. 3. Diabetes mellitus type 2. Continue Levemir 12 units tonight with NovoLog scale before meals and at bedtime, blood sugar is controlled. 4. Hypertension. Continue Lopressor 75 mg twice daily, lisinopril 5 mg daily. 5. Hyperlipidemia. Continue Lipitor 40 mg daily 6. History of pituitary gland resection. 7. Obstructive sleep apnea on BiPAP. 8. Gastroesophageal reflux disease. 9. Benign prostatic hypertrophy with urinary retention. Replacement of Barrow catheter and continue Flomax, urology consult appreciated 10. Acute delirium possibly related to ICU setting, medication effect, lack of sleep. Continue to reorient. DISCHARGE PLAN Subacute rehab at [facility] Impression and plan of care have been directed as dictated by the signing physician. Erica Alfredo nurse practitioner acting as scribe for signing physician. Objective - Vital Signs Vital signs: Vital Signs Temp 97.6 F 12/25/20 07:54 Pulse 90 12/25/20 09:19 Resp 16 12/25/20 07:54 BP 110/62 12/25/20 07:54 Pulse Ox 95 12/25/20 07:54 Intake & Output 12/24/20 12/25/20 12/25/20 18:59 06:59 18:59 Intake Total 50 Output Total 691 713 Balance -641 -713 Weight 93 kg Intake: Oral 50 Output: Urine 690 710 Stool 1 3 Other: Voiding Method Indwelling Catheter Indwelling Catheter Indwelling Catheter # Voids 1,000 ABP, PAP, CO, CI - Last Documented Arterial Blood Pressure 115/51 Pulmonary Artery Pressure 32/17 Cardiac Output 4.4 Cardiac Index 2.2 - Labs CBC & Chem 7: 12/25/20 07:09 12/25/20 07:09 Labs: Abnormal Lab Results - Last 24 Hours (Table) 12/24/20 12/25/20 12/25/20 Range/Units 20:25 06:23 06:45 WBC (3.8-10.6) k/uL RBC (4.30-5.90) m/uL Hgb (13.0-17.5) gm/dL Hct (39.0-53.0) % RDW (11.5-15.5) % PT (9.0-12.0) sec INR (<1.2) Sodium (137-145) mmol/L BUN (9-20) mg/dL Glucose (74-99) mg/dL POC Glucose (mg/dL) 110 H 67 L 51 L (75-99) mg/dL Calcium (8.4-10.2) mg/dL 12/25/20 12/25/20 12/25/20 Range/Units 07:09 07:09 07:09 WBC 12.9 H (3.8-10.6) k/uL RBC 2.92 L (4.30-5.90) m/uL Hgb 9.0 L (13.0-17.5) gm/dL Hct 27.9 L (39.0-53.0) % RDW 15.9 H (11.5-15.5) % PT 13.7 H (9.0-12.0) sec INR 1.3 H (<1.2) Sodium 133 L (137-145) mmol/L BUN 35 H (9-20) mg/dL Glucose 129 H (74-99) mg/dL POC Glucose (mg/dL) (75-99) mg/dL Calcium 8.2 L (8.4-10.2) mg/dL Microbiology - Last 24 Hours (Table) 12/23/20 08:25 Urine Culture - Final Urine,Voided
== END 2020-12-25 16:45 | DRG 236 ==
LOC: 2ORMAIN 05:44 → 2SICU 17:29 → 3SCARD 12-24 13:38
PROVIDERS: ADMIT Surgery; ATTEND Surgery
PROC: 06BQ4ZZ Excision of Left Saphenous Vein, Percutaneous Endoscopic Approach (ICD-10-PCS; 2020-12-16)
PROC: 02L70ZK Occlusion of Left Atrial Appendage, Open Approach (ICD-10-PCS; 2020-12-16)
PROC: B24BZZ4 Ultrasonography of Heart with Aorta, Transesophageal (ICD-10-PCS; 2020-12-16)
PROC: 02100Z9 Bypass Coronary Artery, One Artery from Left Internal Mammary, Open Approach (ICD-10-PCS; principal; 2020-12-16 08:00)
PROC: 03BC4ZZ Excision of Left Radial Artery, Percutaneous Endoscopic Approach (ICD-10-PCS; 2020-12-16 08:00)
PROC: 02100AW Bypass Coronary Artery, One Artery from Aorta with Autologous Arterial Tissue, Open Approach (ICD-10-PCS; 2020-12-16 08:00)
PROC: 021109W Bypass Coronary Artery, Two Arteries from Aorta with Autologous Venous Tissue, Open Approach (ICD-10-PCS; 2020-12-16 08:00)
DX: I25.10 Atherosclerotic heart disease of native coronary artery without angina pectoris (principal); D62 Acute posthemorrhagic anemia; J90 Pleural effusion, not elsewhere classified; I48.21 Permanent atrial fibrillation; J98.11 Atelectasis; F05 Delirium due to known physiological condition; D69.6 Thrombocytopenia, unspecified; Z79.899 Other long term (current) drug therapy; Z79.82 Long term (current) use of aspirin; Z79.4 Long term (current) use of insulin; Z95.5 Presence of coronary angioplasty implant and graft; Z87.891 Personal history of nicotine dependence; Z82.49 Family history of ischemic heart disease and other diseases of the circulatory system; Z81.8 Family history of other mental and behavioral disorders; K21.9 Gastro-esophageal reflux disease without esophagitis; N40.1 Benign prostatic hyperplasia with lower urinary tract symptoms; R33.8 Other retention of urine; Z79.02 Long term (current) use of antithrombotics/antiplatelets; Z20.822 Contact with and (suspected) exposure to COVID-19; I11.9 Hypertensive heart disease without heart failure; I25.82 Chronic total occlusion of coronary artery; Z79.01 Long term (current) use of anticoagulants; E78.5 Hyperlipidemia, unspecified; E11.9 Type 2 diabetes mellitus without complications; G47.33 Obstructive sleep apnea (adult) (pediatric); I95.9 Hypotension, unspecified; H53.2 Diplopia; I45.4 Nonspecific intraventricular block
CPT/HCPCS: 71045; 71046; 76604; 80048; 80053; 81001; 82330; 82805; 83735; 84132; 85025; 85027; 85384; 85520; 85610; 85730; 86850; 86891; 86900; 86901; 86920; 87086; 87635; 94003; 94640; 94660

== ENCOUNTER 2020-12-27 16:58 | Inpatient (IN) | payer MEDICARE ==
--- NOTE | 2020-12-27 17:33 | ED ---
General Adult HPI - General Chief complaint: Shortness of Breath Stated complaint: cardiac issues Time Seen by Provider: 12/27/20 17:18 Source: patient, family, EMS Mode of arrival: EMS Limitations: no limitations - History of Present Illness Initial comments: Patient [facility] with his at bedside. Per , the patient underwent open-heart surgery for coronary bypass grafting 11 days ago, and she states that he has not been well since then. She states the patient has been dyspneic ever since then, and she states that his dyspnea has been increasing. She also states that they recently found that the patient has "liver issues". Patient denies feeling dyspneic currently, and he also denies having any pain at this time. Patient denies headache, focal neuro deficit, chest pain, cough or cold symptoms, abdominal pain, nausea or vomiting, diarrhea, bloody or melanotic stool, leg or calf pain, or any other symptoms or complaints. Patient does have an indwelling Barrow catheter in place. Patient has been vaccinated for Covid per . - Related Data Home Medications Medication Instructions Recorded Confirmed Ascorbic Acid [Vitamin C] 500 mg PO DAILY@1700 04/29/15 12/27/20 Cholecalciferol [Vitamin D3 (25 25 mcg PO DAILY@1700 04/29/15 12/27/20 Mcg = 1000 Iu)] Esomeprazole Magnesium [NexIUM] 40 mg PO DAILY@0600 04/29/15 12/27/20 Warfarin [Coumadin] 2.5 mg PO DIRECTED 04/29/15 12/27/20 Calcium Carbonate [Calcium] 300 mg PO DAILY@1700 04/30/16 12/27/20 Diltiazem Cd [Cardizem CD] 120 mg PO DAILY@0800 06/10/20 12/27/20 Latanoprost/Pf [Latanoprost 0.005% 1 drop BOTH EYES HS@209906/10/20 12/27/20 Eye Drop] Montelukast [Singulair] 10 mg PO HS@209906/10/20 12/27/20 Warfarin [Coumadin] 5 mg PO DIRECTED 06/10/20 12/27/20 Aspirin 81 mg PO DAILY@1700 12/27/20 12/27/20 Atorvastatin [Lipitor] 40 mg PO HS@209912/27/20 12/27/20 INSULIN ASPART (NovoLOG) [NovoLOG See Protocol SQ ACHS 12/27/20 12/27/20 (formulary)] Ipratropium-Albuterol Nebulize 3 ml INHALATION RT-Q2H PRN 12/27/20 12/27/20 [Duoneb 0.5 mg-3 mg/3 ml Soln] Ipratropium-Albuterol Nebulize 3 ml INHALATION RT-Q6H 12/27/20 12/27/20 [Duoneb 0.5 mg-3 mg/3 ml Soln] Magnesium Hydroxide [Milk of 7,200 mg PO DAILY PRN 12/27/20 12/27/20 Magnesia Concentrate] Metoprolol Tartrate [Lopressor] 75 mg PO BID@0800,1700 12/27/20 12/27/20 Midodrine HCl 5 mg PO TID@0800,1200,1700 12/27/20 12/27/20 Na Phos,M-B/Na Phos,Di-Ba [Fleet 133 ml RECTAL DAILY PRN 12/27/20 12/27/20 Adult] Sennosides-Docusate Sodium 2 tab PO HS PRN 12/27/20 12/27/20 [Senokot-S] Tamsulosin [Flomax] 0.4 mg PO DAILY@0800 12/27/20 12/27/20 bisacodyL [Dulcolax] 10 mg RECTAL DAILY PRN 12/27/20 12/27/20 Previous Rx's Medication Instructions Recorded Acetaminophen Tab [Tylenol] 650 mg PO Q4HR PRN tab 12/25/20 lisinopriL [Zestril] 5 mg PO DAILY@1200 tab 12/25/20 Allergies Allergy/AdvReac Type Severity Reaction Status Date / Time No Known Allergies Allergy Verified 12/27/20 19:11 Review of Systems ROS Statement: Those systems with pertinent positive or pertinent negative responses have been documented in the HPI. ROS Other: All systems not noted in ROS Statement are negative. Past Medical History Past Medical History: Atrial Fibrillation, Diabetes Mellitus, Hyperlipidemia, Hypertension, Prostate Disorder History of Any Multi-Drug Resistant Organisms: None Reported Past Surgical History: Coronary Bypass/CABG Additional Past Surgical History / Comment(s): pitutary tumor removed Past Anesthesia/Blood Transfusion Reactions: No Reported Reaction Additional Past Anesthesia/Blood Transfusion Reaction / Comment(s): no hx blood transfusion Date of Last Stent Placement:: 2005 Past Psychological History: No Psychological Hx Reported Smoking Status: Never smoker Past Alcohol Use History: None Reported Past Drug Use History: None Reported - Past Family History Father Family Medical History: Congestive Heart Failure (CHF), Coronary Artery Disease (CAD), Myocardial Infarction (RI) Additional Family Medical History / Comment(s): Premature coronary artery disease, CABG Mother Additional Family Medical History / Comment(s): Depression, committed suicide General Exam Limitations: no limitations General appearance: alert Head exam: Present: atraumatic, normocephalic Eye exam: Present: PERRL, EOMI ENT exam: Present: mucous membranes moist Neck exam: Present: other (Trachea is in midline). Absent: tenderness, meningismus Respiratory exam: Present: respiratory distress, rales, other (Equal breath sounds bilaterally; patient's midline sternotomy wound appears clean and without evidence of infection). Absent: wheezes, rhonchi, stridor Cardiovascular Exam: Present: regular rate, irregular rhythm, normal heart sounds, other (Normal radial pulses bilaterally) GI/Abdominal exam: Present: soft. Absent: tenderness, guarding Extremities exam: Present: other (Bilateral lower extremity pitting edema). Absent: tenderness, calf tenderness Neurological exam: Present: alert, oriented X3. Absent: motor sensory deficit Psychiatric exam: Present: normal affect, normal mood Skin exam: Present: warm, dry, intact, other (Patient appears to be somewhat jaundiced in appearance) Course Vital Signs 12/27/20 12/27/20 12/27/20 17:07 17:11 17:30 Temperature 97.8 F Pulse Rate 73 73 Respiratory 20 22 26 H Rate Blood Pressure 107/59 103/64 O2 Sat by Pulse 93 L 99 Oximetry 12/27/20 12/27/20 12/27/20 18:00 18:30 19:00 Temperature Pulse Rate 73 77 75 Respiratory 21 24 24 Rate Blood Pressure 97/64 99/61 102/69 O2 Sat by Pulse 98 18 L 18 L Oximetry 12/27/20 20:38 Temperature Pulse Rate 78 Respiratory 20 Rate Blood Pressure 106/75 O2 Sat by Pulse 95 Oximetry - Reevaluation(s) Reevaluation #1: 12/27/20 20:40 Case, H&P and test results were discussed with Dr. Slater. She accepts hospital admission. She requests that I order an acute hepatitis panel, as well as CMV studies. She also recommends ordering Lasix 40 mg IV every 12 hours[address] She also recommends CT surgery, cardiology and pulmonology consultations. She has no further recommendations at this time. 12/27/20 21:00 Patient denies development of any new symptoms while in the ED. Patient remains alert and responsive. Patient's and son (over phone call) are all aware of the patient's test results and discussed with Dr. Slater as above. They all agree with hospital admission at this time. EKG Findings - EKG Comments: EKG Findings:: Atrial fibrillation, ventricular rate of 79 bpm, QRS duration of 132 ms, right bundle branch block, leftward axis, no significant change when compared to 12/08/2020 EKG Medical Decision Making - Medical Decision Making I suspect that the patient's dyspnea and chest x-ray findings are secondary to CHF. Will gently diurese the patient with Lasix 40 mg IV every [address] Slater's recommendations. I am uncertain of the etiology of the patient's elevated liver function tests at this time. Possibilities include medication related injury, a viral etiology and hepatic congestion secondary to CHF. Patient's gallbladder ultrasound is fairly unremarkable. Will admit the patient to the hospital for further evaluation and treatment, as well as specialist consultations. Dr. Slater has accepted hospital admission. - Lab Data Result diagrams: 12/27/20 17:52 12/27/20 17:52 Lab Results 12/27/20 12/27/20 12/27/20 Range/Units 17:52 17:52 17:52 WBC 16.1 H (3.8-10.6) k/uL RBC 3.13 L (4.30-5.90) m/uL Hgb 9.6 L (13.0-17.5) gm/dL Hct 29.9 L (39.0-53.0) % MCV 95.5 (80.0-100.0) fL MCH 30.6 (25.0-35.0) pg MCHC 32.0 (31.0-37.0) g/dL RDW 16.7 H (11.5-15.5) % Plt Count 431 (150-450) k/uL MPV 8.1 Neutrophils % 83 % Lymphocytes % 10 % Monocytes % 6 % Eosinophils % 0 % Basophils % 0 % Neutrophils # 13.3 H (1.3-7.7) k/uL Lymphocytes # 1.6 (1.0-4.8) k/uL Monocytes # 1.0 (0-1.0) k/uL Eosinophils # 0.0 (0-0.7) k/uL Basophils # 0.0 (0-0.2) k/uL Hypochromasia Slight Poikilocytosis Moderate Anisocytosis Slight Macrocytosis Slight PT 54.1 H (9.0-12.0) sec INR 5.6 H* (<1.2) APTT 30.6 H (22.0-30.0) sec VBG pH (7.31-7.41) VBG pCO2 (37-51) mmHg VBG HCO3 (24-28) mmol/L Sodium 128 L (137-145) mmol/L Potassium 4.9 (3.5-5.1) mmol/L Chloride 97 L (98-107) mmol/L Carbon Dioxide 18 L (22-30) mmol/L Anion Gap 13 mmol/L BUN 56 H (9-20) mg/dL Creatinine 1.68 H (0.66-1.25) mg/dL Est GFR (CKD-EPI)AfAm 45 (>60 ml/min/1.73 sqM) Est GFR (CKD-EPI)NonAf 38 (>60 ml/min/1.73 sqM) Glucose 132 H (74-99) mg/dL Lactic Ac Sepsis Rflx Plasma Lactic Acid Juan (0.7-2.0) mmol/L Calcium 8.0 L (8.4-10.2) mg/dL Magnesium 2.4 H (1.6-2.3) mg/dL Total Bilirubin 6.0 H (0.2-1.3) mg/dL AST 1180 H (17-59) U/L ALT 846 H (4-49) U/L Alkaline Phosphatase 384 H (38-126) U/L Ammonia (<30) umol/L Troponin I (0.000-0.034) ng/mL NT-Pro-B Natriuret Pep pg/mL Total Protein 5.8 L (6.3-8.2) g/dL Albumin 3.3 L (3.5-5.0) g/dL Lipase (23-300) U/L Coronavirus (PCR) (Not Detectd) 12/27/20 12/27/20 12/27/20 Range/Units 17:52 17:52 17:52 WBC (3.8-10.6) k/uL RBC (4.30-5.90) m/uL Hgb (13.0-17.5) gm/dL Hct (39.0-53.0) % MCV (80.0-100.0) fL MCH (25.0-35.0) pg MCHC (31.0-37.0) g/dL RDW (11.5-15.5) % Plt Count (150-450) k/uL MPV Neutrophils % % Lymphocytes % % Monocytes % % Eosinophils % % Basophils % % Neutrophils # (1.3-7.7) k/uL Lymphocytes # (1.0-4.8) k/uL Monocytes # (0-1.0) k/uL Eosinophils # (0-0.7) k/uL Basophils # (0-0.2) k/uL Hypochromasia Poikilocytosis Anisocytosis Macrocytosis PT (9.0-12.0) sec INR (<1.2) APTT (22.0-30.0) sec VBG pH (7.31-7.41) VBG pCO2 (37-51) mmHg VBG HCO3 (24-28) mmol/L Sodium (137-145) mmol/L Potassium (3.5-5.1) mmol/L Chloride (98-107) mmol/L Carbon Dioxide (22-30) mmol/L Anion Gap mmol/L BUN (9-20) mg/dL Creatinine (0.66-1.25) mg/dL Est GFR (CKD-EPI)AfAm (>60 ml/min/1.73 sqM) Est GFR (CKD-EPI)NonAf (>60 ml/min/1.73 sqM) Glucose (74-99) mg/dL Lactic Ac Sepsis Rflx Plasma Lactic Acid Juan (0.7-2.0) mmol/L Calcium (8.4-10.2) mg/dL Magnesium (1.6-2.3) mg/dL Total Bilirubin (0.2-1.3) mg/dL AST (17-59) U/L ALT (4-49) U/L Alkaline Phosphatase (38-126) U/L Ammonia (<30) umol/L Troponin I 0.162 H* (0.000-0.034) ng/mL NT-Pro-B Natriuret Pep 5370 pg/mL Total Protein (6.3-8.2) g/dL Albumin (3.5-5.0) g/dL Lipase (23-300) U/L Coronavirus (PCR) Not Detected (Not Detectd) 12/27/20 12/27/20 12/27/20 Range/Units 17:52 17:52 17:52 WBC (3.8-10.6) k/uL RBC (4.30-5.90) m/uL Hgb (13.0-17.5) gm/dL Hct (39.0-53.0) % MCV (80.0-100.0) fL MCH (25.0-35.0) pg MCHC (31.0-37.0) g/dL RDW (11.5-15.5) % Plt Count (150-450) k/uL MPV Neutrophils % % Lymphocytes % % Monocytes % % Eosinophils % % Basophils % % Neutrophils # (1.3-7.7) k/uL Lymphocytes # (1.0-4.8) k/uL Monocytes # (0-1.0) k/uL Eosinophils # (0-0.7) k/uL Basophils # (0-0.2) k/uL Hypochromasia Poikilocytosis Anisocytosis Macrocytosis PT (9.0-12.0) sec INR (<1.2) APTT (22.0-30.0) sec VBG pH 7.44 H (7.31-7.41) VBG pCO2 26 L (37-51) mmHg VBG HCO3 18 L (24-28) mmol/L Sodium (137-145) mmol/L Potassium (3.5-5.1) mmol/L Chloride (98-107) mmol/L Carbon Dioxide (22-30) mmol/L Anion Gap mmol/L BUN (9-20) mg/dL Creatinine (0.66-1.25) mg/dL Est GFR (CKD-EPI)AfAm (>60 ml/min/1.73 sqM) Est GFR (CKD-EPI)NonAf (>60 ml/min/1.73 sqM) Glucose (74-99) mg/dL Lactic Ac Sepsis Rflx Plasma Lactic Acid Juan 3.8 H* (0.7-2.0) mmol/L Calcium (8.4-10.2) mg/dL Magnesium (1.6-2.3) mg/dL Total Bilirubin (0.2-1.3) mg/dL AST (17-59) U/L ALT (4-49) U/L Alkaline Phosphatase (38-126) U/L Ammonia <9 (<30) umol/L Troponin I (0.000-0.034) ng/mL NT-Pro-B Natriuret Pep pg/mL Total Protein (6.3-8.2) g/dL Albumin (3.5-5.0) g/dL Lipase 458 H (23-300) U/L Coronavirus (PCR) (Not Detectd) 12/27/20 Range/Units 18:35 WBC (3.8-10.6) k/uL RBC (4.30-5.90) m/uL Hgb (13.0-17.5) gm/dL Hct (39.0-53.0) % MCV (80.0-100.0) fL MCH (25.0-35.0) pg MCHC (31.0-37.0) g/dL RDW (11.5-15.5) % Plt Count (150-450) k/uL MPV Neutrophils % % Lymphocytes % % Monocytes % % Eosinophils % % Basophils % % Neutrophils # (1.3-7.7) k/uL Lymphocytes # (1.0-4.8) k/uL Monocytes # (0-1.0) k/uL Eosinophils # (0-0.7) k/uL Basophils # (0-0.2) k/uL Hypochromasia Poikilocytosis Anisocytosis Macrocytosis PT (9.0-12.0) sec INR (<1.2) APTT (22.0-30.0) sec VBG pH (7.31-7.41) VBG pCO2 (37-51) mmHg VBG HCO3 (24-28) mmol/L Sodium (137-145) mmol/L Potassium (3.5-5.1) mmol/L Chloride (98-107) mmol/L Carbon Dioxide (22-30) mmol/L Anion Gap mmol/L BUN (9-20) mg/dL Creatinine (0.66-1.25) mg/dL Est GFR (CKD-EPI)AfAm (>60 ml/min/1.73 sqM) Est GFR (CKD-EPI)NonAf (>60 ml/min/1.73 sqM) Glucose (74-99) mg/dL Lactic Ac Sepsis Rflx Y Plasma Lactic Acid Juan (0.7-2.0) mmol/L Calcium (8.4-10.2) mg/dL Magnesium (1.6-2.3) mg/dL Total Bilirubin (0.2-1.3) mg/dL AST (17-59) U/L ALT (4-49) U/L Alkaline Phosphatase (38-126) U/L Ammonia (<30) umol/L Troponin I (0.000-0.034) ng/mL NT-Pro-B Natriuret Pep pg/mL Total Protein (6.3-8.2) g/dL Albumin (3.5-5.0) g/dL Lipase (23-300) U/L Coronavirus (PCR) (Not Detectd) - Radiology Data Radiology results: report reviewed (Chest x-ray: There are bilateral pleural effusions and basilar pulmonary infiltrates which appear slightly worse than recent exam. Mild heart failure is possible. Cardiomegaly unchanged.) Gallbladder ultrasound: No gallstones or dilated ducts. Disposition Clinical Impression: Dyspnea, Elevated troponin, Elevated LFTs, Coagulopathy, CHF (congestive heart failure) Disposition: ADMITTED IP TO THIS HOSP Condition: Stable Is patient prescribed a controlled substance at d/c from ED?: No Referrals: Cipriano Campos MD [Primary Care Provider] - 1-2 days Time of Disposition: 20:45
[2020-12-27 18:05] LABS: VBG PH 7.44 (7.31-7.41)
[2020-12-27 18:21] LABS: Albumin 3.3 g/dL (3.5-5.0); Magnesium 2.4 mg/dL (1.6-2.3); Potassium 4.9 mmol/L (3.5-5.1); Total Protein 5.8 g/dL (6.3-8.2)
--- NOTE | 2020-12-27 18:25 | XR ---
EXAMINATION TYPE: XR chest 1V portable DATE OF EXAM: 12/27/2020 COMPARISON: 12/25/2020 HISTORY: Short of breath TECHNIQUE: FINDINGS: Heart is enlarged. There is bilateral lower lobe pulmonary infiltrates with pleural fluid. There are sternal wires. Mediastinum is normal. IMPRESSION: There are bilateral pleural effusions and basilar pulmonary infiltrates which appear slig htly worse than recent exam. Mild heart failure is possible. Cardiomegaly unchanged.
[2020-12-27 18:34] LABS: Lactic Acid, Venous 3.8 mmol/L (0.7-2.0)
[2020-12-27 18:47] LABS: Partial Thromboplastin Time 30.6 sec (22.0-30.0); Prothrombin Time 54.1 sec (9.0-12.0)
[2020-12-27 18:48] LABS: INR 5.6 (<1.2)
[2020-12-27 18:53] LABS: Anisocytosis Slight; Basophils % (A) 0 %; Eosinophils % (A) 0 %; HCT 29.9 % (39.0-53.0); HGB 9.6 gm/dL (13.0-17.5); Hypochromasia Slight; Lymphocytes # (A) 1.6 k/uL (1.0-4.8); Lymphocytes % (A) 10 %; MCH 30.6 pg (25.0-35.0); MCV 95.5 fL (80.0-100.0); Macrocytosis Slight; Mean Platelet Volume 8.1; Monocytes % (A) 6 %; Neutrophils # (A) 13.3 k/uL (1.3-7.7); Neutrophils % (A) 83 %; Platelet Count 431 k/uL (150-450); Poikilocytosis Moderate; RBC 3.13 m/uL (4.30-5.90); RDW 16.7 % (11.5-15.5); WBC 16.1 k/uL (3.8-10.6)
--- NOTE | 2020-12-27 20:32 | US ---
EXAMINATION TYPE: US gallbladder DATE OF EXAM: 12/27/2020 COMPARISON: CT 2017 CLINICAL HISTORY: eleveated LFT's. EXAM MEASUREMENTS: Liver Length: 20.2 cm Gallbladder Wall: 0.2 cm CBD: 0.4 cm Right Kidney: 10.9 x 4.6 x 4.5 cm Difficult and limited study due to patient body habitus Pancreas: obscured by overlying midline bowel gas Liver: enlarged, limited visualization, scanned intercostally Gallbladder: wnl Evidence for sonographic Schwartz's sign: no CBD: visualized portions wnl, limited by overlying bowel gas Right Kidney: wnl IMPRESSION: No gallstones or dilated ducts.
[2020-12-27] MEDS ORDERED: HYDROmorphone 0.5 MG/0.5 ML SYRINGE IVP STA (21:09)
[2020-12-27] MEDS: FUROSEMIDE 10 MG/ML 4 ML VIAL IV SCH (21:32)
[2020-12-28] MEDS ORDERED: ACETAMINOPHEN TAB 325 MG TAB PO PRN (08:13)
[2020-12-28] MEDS ORDERED: IPRATROPIUM-ALBUTEROL 3 ML NEB INHALATION PRN (08:13)
[2020-12-28] MEDS ORDERED: bisacodyL 10 MG SUPP RECTAL PRN (08:13)
[2020-12-28] MEDS ORDERED: SENNOSIDES-DOCUSATE SODIUM 1 EACH TAB PO PRN (08:13)
[2020-12-28] MEDS ORDERED: MAGNESIUM HYDROXIDE 2,400 MG/10 ML CUP PO PRN (08:13)
[2020-12-28] MEDS: FUROSEMIDE 10 MG/ML 4 ML VIAL IV SCH ×2 (08:45→16:18)
[2020-12-28 09:12] LABS: INR 3.3 (<1.2); Prothrombin Time 31.6 sec (9.0-12.0)
[2020-12-28 09:16] LABS: Albumin 3.5 g/dL (3.5-5.0); Calcium 8.3 mg/dL (8.4-10.2); Potassium 4.6 mmol/L (3.5-5.1); Total Bilirubin 7.3 mg/dL (0.2-1.3); Total Protein 6.2 g/dL (6.3-8.2)
[2020-12-28 09:18] LABS: Anisocytosis Slight; Basophils % (A) 0 %; Eosinophils % (A) 0 %; HCT 30.4 % (39.0-53.0); HGB 9.7 gm/dL (13.0-17.5); Hypochromasia Moderate; Lymphocytes # (A) 1.3 k/uL (1.0-4.8); Lymphocytes % (A) 9 %; MCH 31.5 pg (25.0-35.0); MCHC 32.1 g/dL (31.0-37.0); MCV 98.1 fL (80.0-100.0); Macrocytosis Slight; Mean Platelet Volume 7.5; Monocytes % (A) 6 %; Neutrophils # (A) 12.4 k/uL (1.3-7.7); Neutrophils % (A) 83 %; Platelet Count 382 k/uL (150-450); Poikilocytosis Moderate; RDW 16.7 % (11.5-15.5)
[2020-12-28] MEDS: METOPROLOL TARTRATE 50 MG TAB PO SCH ×2 (10:12→20:37)
--- NOTE | 2020-12-28 10:58 | P.GSCN ---
History of Present Illness Consult date: 12/28/20 Reason for Consult: Heart failure and elevated LFTs post recent CABG Requesting physician: Wil Luevano History of present illness: This is a 80-year-old gentleman who follows on an outpatient basis with Dr. Campos for primary care and Dr. Mullins for cardiology. 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 He was just released from the hospital 12/25/2020 after open heart surgery and was discharged to [facility] facility for physical therapy to increase his strength. He was discharged on both Coumadin and Eliquis, as we were using Eliquis to bridge until INR was therapeutic, INR was 1.8 on 12/26/2020. The patient has continued to have episodes of shortness of breath, lack of motivation, and lab work was completed notating elevated LFTs. The patient was brought back to [facility] last night for evaluation and treatment. Lab work in the ER demonstrated WBC 16.1, hemoglobin 9.6, INR 5.6, sodium 128, BUN 56, creatinine 1.68, lactic acid 3.8, AST 1188, AST 846, ammonia less than 9, BNP 5370, lipase 458, with negative coronavirus PCR. Chest x-ray demonstrated bilateral pleural effusions with mild heart failure. Ultrasound of the gallbladder demonstrated the gallbladder to be within normal limits, enlarged liver, without gallstones or dilated ducts. The patient was afebrile, remains in controlled atrial fibrillation, borderline hypotensive however MAP remains within normal limits. The patient was given IV diuresis. He is to be admitted for continued evaluation and treatment with consultation placed to cardiology, pulmonology, and cardiothoracic surgery. He was seen by pulmonology this morning already and has been placed on BiPAP, ultrasound the chest was ordered for possible thoracentesis. Review of Systems Review of systems was completed and was negative except as noted - Constitutional Reports fatigue, Reports malaise - Cardiovascular Reports dyspnea on exertion, Reports irregular heart beat, Reports leg edema, Reports shortness of breath - Respiratory Reports dyspnea - Psychiatric Reports depression Past Medical History Past Medical History: Atrial Fibrillation, Coronary Artery Disease (CAD), Diabetes Mellitus, Hyperlipidemia, Hypertension, Prostate Disorder, Sleep Apnea/CPAP/BIPAP History of Any Multi-Drug Resistant Organisms: None Reported Past Surgical History: Coronary Bypass/CABG, Heart Catheterization With Stent Additional Past Surgical History / Comment(s): pitutary tumor removed; PCI to the LAD in 2005; 4 vessel CABG 12/16/2020 Past Anesthesia/Blood Transfusion Reactions: No Reported Reaction Additional Past Anesthesia/Blood Transfusion Reaction / Comm: no hx blood transfusion Date of Last Stent Placement:: 2005 Past Psychological History: No Psychological Hx Reported Smoking Status: Never smoker Additional Past Alcohol Use History / Comment(s): Prior to open heart admission patient consumed wine daily Past Drug Use History: None Reported - Past Family History Father Family Medical History: Congestive Heart Failure (CHF), Coronary Artery Disease (CAD), Myocardial Infarction (NM) Additional Family Medical History / Comment(s): Premature coronary artery disease, CABG Mother Additional Family Medical History / Comment(s): Depression, committed suicide Medications and Allergies Home Medications Medication Instructions Recorded Confirmed Type Ascorbic Acid [Vitamin C] 500 mg PO DAILY@1700 04/29/15 12/27/20 History Cholecalciferol [Vitamin D3 (25 25 mcg PO DAILY@1700 04/29/15 12/27/20 History Mcg = 1000 Iu)] Esomeprazole Magnesium [NexIUM] 40 mg PO DAILY@0600 04/29/15 12/27/20 History Warfarin [Coumadin] 2.5 mg PO DIRECTED 04/29/15 12/27/20 History Calcium Carbonate [Calcium] 300 mg PO DAILY@1700 04/30/16 12/27/20 History Diltiazem Cd [Cardizem CD] 120 mg PO DAILY@0800 06/10/20 12/27/20 History Latanoprost/Pf [Latanoprost 0.005% 1 drop BOTH EYES HS@209906/10/20 12/27/20 History Eye Drop] Montelukast [Singulair] 10 mg PO HS@209906/10/20 12/27/20 History Warfarin [Coumadin] 5 mg PO DIRECTED 06/10/20 12/27/20 History Acetaminophen Tab [Tylenol] 650 mg PO Q4HR PRN tab 12/25/20 12/27/20 Rx lisinopriL [Zestril] 5 mg PO DAILY@1200 tab 12/25/20 12/27/20 Rx Aspirin 81 mg PO DAILY@1700 12/27/20 12/27/20 History Atorvastatin [Lipitor] 40 mg PO HS@2100 12/27/20 12/27/20 History INSULIN ASPART (NovoLOG) [NovoLOG See Protocol SQ ACHS 12/27/20 12/27/20 History (formulary)] Ipratropium-Albuterol Nebulize 3 ml INHALATION RT-Q2H PRN 12/27/20 12/27/20 History [Duoneb 0.5 mg-3 mg/3 ml Soln] Ipratropium-Albuterol Nebulize 3 ml INHALATION RT-Q6H 12/27/20 12/27/20 History [Duoneb 0.5 mg-3 mg/3 ml Soln] Magnesium Hydroxide [Milk of 7,200 mg PO DAILY PRN 12/27/20 12/27/20 History Magnesia Concentrate] Metoprolol Tartrate [Lopressor] 75 mg PO BID@0800,1700 12/27/20 12/27/20 History Midodrine HCl 5 mg PO TID@0800,1200,1700 12/27/20 12/27/20 History Na Phos,M-B/Na Phos,Di-Ba [Fleet 133 ml RECTAL DAILY PRN 12/27/20 12/27/20 History Adult] Sennosides-Docusate Sodium 2 tab PO HS PRN 12/27/20 12/27/20 History [Senokot-S] Tamsulosin [Flomax] 0.4 mg PO DAILY@0800 12/27/20 12/27/20 History bisacodyL [Dulcolax] 10 mg RECTAL DAILY PRN 12/27/20 12/27/20 History Allergies Allergy/AdvReac Type Severity Reaction Status Date / Time No Known Allergies Allergy Verified 12/27/20 19:11 Surgical - Exam Vital Signs Temp Pulse Resp BP Pulse Ox 97.8 F 73 20 107/59 93 L 12/27/20 17:07 12/27/20 17:07 12/27/20 17:07 12/27/20 17:07 12/27/20 17:07 CONSTITUTIONAL: [place], cooperative, well-developed, well-nourished, no pain EYES: Pupils equal, round, reactive to light, normal ocular movement ENT: Moist mucous membranes without oral lesions present NECK: No masses, no bruits, trachea midline RESPIRATORY: Lungs sounds very diminished bilaterally with coarse breath sounds in the bases. Respirations even, nonlabored. Currently on BiPAP, FiO2 50%, IPAP 12, EPAP 6. CARDIOVASCULAR: S1, S2 present. Irregular rate and rhythm, controlled atrial fibrillation on telemetry. Palpable peripheral pulses bilaterally. Bilateral lower extremity edema present. No calf pain or tenderness noted. GASTROINTESTINAL: Abdomen soft, nontender, nondistended. There is no rebound or guarding present. Active bowel sounds present 4 quadrants. GENITOURINARY: Barrow present draining concentrated urine INTEGUMENTARY: Skin is warm and dry, appears slightly jaundiced, anterior chest incision well approximated and covered with Dermabond tape NEUROLOGIC: Cranial nerves II through XII intact, speech is normal MUSKULOSKELETAL: Able to move all extremities, strength equal bilaterally but generalized weakness present PSYCHIATRIC: Alert and oriented to person place and time, flat affect, lacks motivation Results - Labs 12/28/20 08:47 12/28/20 08:47 Abnormal Lab Results - Last 24 Hours (Table) 12/27/20 12/27/20 12/27/20 Range/Units 17:52 17:52 17:52 WBC 16.1 H (3.8-10.6) k/uL RBC 3.13 L (4.30-5.90) m/uL Hgb 9.6 L (13.0-17.5) gm/dL Hct 29.9 L (39.0-53.0) % RDW 16.7 H (11.5-15.5) % Neutrophils # 13.3 H (1.3-7.7) k/uL PT 54.1 H (9.0-12.0) sec INR 5.6 H* (<1.2) APTT 30.6 H (22.0-30.0) sec VBG pH (7.31-7.41) VBG pCO2 (37-51) mmHg VBG HCO3 (24-28) mmol/L Sodium 128 L (137-145) mmol/L Chloride 97 L (98-107) mmol/L Carbon Dioxide 18 L (22-30) mmol/L BUN 56 H (9-20) mg/dL Creatinine 1.68 H (0.66-1.25) mg/dL Glucose 132 H (74-99) mg/dL Plasma Lactic Acid Juan (0.7-2.0) mmol/L Calcium 8.0 L (8.4-10.2) mg/dL Magnesium 2.4 H (1.6-2.3) mg/dL Total Bilirubin 6.0 H (0.2-1.3) mg/dL AST 1180 H (17-59) U/L ALT 846 H (4-49) U/L Alkaline Phosphatase 384 H (38-126) U/L Troponin I (0.000-0.034) ng/mL Total Protein 5.8 L (6.3-8.2) g/dL Albumin 3.3 L (3.5-5.0) g/dL Lipase (23-300) U/L 12/27/20 12/27/20 12/27/20 Range/Units 17:52 17:52 17:52 WBC (3.8-10.6) k/uL RBC (4.30-5.90) m/uL Hgb (13.0-17.5) gm/dL Hct (39.0-53.0) % RDW (11.5-15.5) % Neutrophils # (1.3-7.7) k/uL PT (9.0-12.0) sec INR (<1.2) APTT (22.0-30.0) sec VBG pH 7.44 H (7.31-7.41) VBG pCO2 26 L (37-51) mmHg VBG HCO3 18 L (24-28) mmol/L Sodium (137-145) mmol/L Chloride (98-107) mmol/L Carbon Dioxide (22-30) mmol/L BUN (9-20) mg/dL Creatinine (0.66-1.25) mg/dL Glucose (74-99) mg/dL Plasma Lactic Acid Juan 3.8 H* (0.7-2.0) mmol/L Calcium (8.4-10.2) mg/dL Magnesium (1.6-2.3) mg/dL Total Bilirubin (0.2-1.3) mg/dL AST (17-59) U/L ALT (4-49) U/L Alkaline Phosphatase (38-126) U/L Troponin I 0.162 H* (0.000-0.034) ng/mL Total Protein (6.3-8.2) g/dL Albumin (3.5-5.0) g/dL Lipase (23-300) U/L 12/27/20 12/27/20 12/27/20 Range/Units 17:52 22:23 22:23 WBC (3.8-10.6) k/uL RBC (4.30-5.90) m/uL Hgb (13.0-17.5) gm/dL Hct (39.0-53.0) % RDW (11.5-15.5) % Neutrophils # (1.3-7.7) k/uL PT (9.0-12.0) sec INR (<1.2) APTT (22.0-30.0) sec VBG pH (7.31-7.41) VBG pCO2 (37-51) mmHg VBG HCO3 (24-28) mmol/L Sodium (137-145) mmol/L Chloride (98-107) mmol/L Carbon Dioxide (22-30) mmol/L BUN (9-20) mg/dL Creatinine (0.66-1.25) mg/dL Glucose (74-99) mg/dL Plasma Lactic Acid Juan 2.1 H* (0.7-2.0) mmol/L Calcium (8.4-10.2) mg/dL Magnesium (1.6-2.3) mg/dL Total Bilirubin (0.2-1.3) mg/dL AST (17-59) U/L ALT (4-49) U/L Alkaline Phosphatase (38-126) U/L Troponin I 0.144 H* (0.000-0.034) ng/mL Total Protein (6.3-8.2) g/dL Albumin (3.5-5.0) g/dL Lipase 458 H (23-300) U/L 12/28/20 12/28/20 12/28/20 Range/Units 01:40 08:47 08:47 WBC 15.0 H (3.8-10.6) k/uL RBC 3.10 L (4.30-5.90) m/uL Hgb 9.7 L (13.0-17.5) gm/dL Hct 30.4 L (39.0-53.0) % RDW 16.7 H (11.5-15.5) % Neutrophils # 12.4 H (1.3-7.7) k/uL PT (9.0-12.0) sec INR (<1.2) APTT (22.0-30.0) sec VBG pH (7.31-7.41) VBG pCO2 (37-51) mmHg VBG HCO3 (24-28) mmol/L Sodium 131 L (137-145) mmol/L Chloride (98-107) mmol/L Carbon Dioxide 19 L (22-30) mmol/L BUN 62 H (9-20) mg/dL Creatinine 1.76 H (0.66-1.25) mg/dL Glucose 129 H (74-99) mg/dL Plasma Lactic Acid Juan (0.7-2.0) mmol/L Calcium 8.3 L (8.4-10.2) mg/dL Magnesium (1.6-2.3) mg/dL Total Bilirubin 7.3 H (0.2-1.3) mg/dL AST 949 H (17-59) U/L ALT 881 H (4-49) U/L Alkaline Phosphatase 411 H (38-126) U/L Troponin I 0.148 H* (0.000-0.034) ng/mL Total Protein 6.2 L (6.3-8.2) g/dL Albumin (3.5-5.0) g/dL Lipase (23-300) U/L 12/28/20 Range/Units 08:47 WBC (3.8-10.6) k/uL RBC (4.30-5.90) m/uL Hgb (13.0-17.5) gm/dL Hct (39.0-53.0) % RDW (11.5-15.5) % Neutrophils # (1.3-7.7) k/uL PT 31.6 H (9.0-12.0) sec INR 3.3 H (<1.2) APTT (22.0-30.0) sec VBG pH (7.31-7.41) VBG pCO2 (37-51) mmHg VBG HCO3 (24-28) mmol/L Sodium (137-145) mmol/L Chloride (98-107) mmol/L Carbon Dioxide (22-30) mmol/L BUN (9-20) mg/dL Creatinine (0.66-1.25) mg/dL Glucose (74-99) mg/dL Plasma Lactic Acid Juan (0.7-2.0) mmol/L Calcium (8.4-10.2) mg/dL Magnesium (1.6-2.3) mg/dL Total Bilirubin (0.2-1.3) mg/dL AST (17-59) U/L ALT (4-49) U/L Alkaline Phosphatase (38-126) U/L Troponin I (0.000-0.034) ng/mL Total Protein (6.3-8.2) g/dL Albumin (3.5-5.0) g/dL Lipase (23-300) U/L Diabetes panel 12/27/20 12/28/20 Range/Units 17:52 08:47 Sodium 128 L 131 L (137-145) mmol/L Potassium 4.9 4.6 (3.5-5.1) mmol/L Chloride 97 L 99 (98-107) mmol/L Carbon Dioxide 18 L 19 L (22-30) mmol/L BUN 56 H 62 H (9-20) mg/dL Creatinine 1.68 H 1.76 H (0.66-1.25) mg/dL Glucose 132 H 129 H (74-99) mg/dL Calcium 8.0 L 8.3 L (8.4-10.2) mg/dL AST 1180 H 949 H (17-59) U/L ALT 846 H 881 H (4-49) U/L Alkaline Phosphatase 384 H 411 H (38-126) U/L Total Protein 5.8 L 6.2 L (6.3-8.2) g/dL Albumin 3.3 L 3.5 (3.5-5.0) g/dL Calcium panel 10/16/21 10/17/21 Range/Units 17:52 08:47 Calcium 8.0 L 8.3 L (8.4-10.2) mg/dL Albumin 3.3 L 3.5 (3.5-5.0) g/dL Pituitary panel 12/27/20 12/28/20 Range/Units 17:52 08:47 Sodium 128 L 131 L (137-145) mmol/L Potassium 4.9 4.6 (3.5-5.1) mmol/L Chloride 97 L 99 (98-107) mmol/L Carbon Dioxide 18 L 19 L (22-30) mmol/L BUN 56 H 62 H (9-20) mg/dL Creatinine 1.68 H 1.76 H (0.66-1.25) mg/dL Glucose 132 H 129 H (74-99) mg/dL Calcium 8.0 L 8.3 L (8.4-10.2) mg/dL Adrenal panel 12/27/20 12/28/20 Range/Units 17:52 08:47 Sodium 128 L 131 L (137-145) mmol/L Potassium 4.9 4.6 (3.5-5.1) mmol/L Chloride 97 L 99 (98-107) mmol/L Carbon Dioxide 18 L 19 L (22-30) mmol/L BUN 56 H 62 H (9-20) mg/dL Creatinine 1.68 H 1.76 H (0.66-1.25) mg/dL Glucose 132 H 129 H (74-99) mg/dL Calcium 8.0 L 8.3 L (8.4-10.2) mg/dL Total Bilirubin 6.0 H 7.3 H (0.2-1.3) mg/dL AST 1180 H 949 H (17-59) U/L ALT 846 H 881 H (4-49) U/L Alkaline Phosphatase 384 H 411 H (38-126) U/L Total Protein 5.8 L 6.2 L (6.3-8.2) g/dL Albumin 3.3 L 3.5 (3.5-5.0) g/dL - Imaging Chest x-ray: report reviewed, image reviewed US - abdomen: report reviewed, image reviewed EKG: image reviewed Assessment and Plan Assessment: 1. Shortness of breath, currently on BiPAP 2. Elevated LFTs, likely from hepatic congestion secondary to heart failure 3. Coronary artery disease status post PCI to the LAD in 2005 and subsequent 4 vessel CABG on 12/16/2020 4. Previously preserved left ventricular function 5. Chronic atrial fibrillation on Coumadin for anticoagulation with supratherapeutic INR on admission, status post exclusion of the left atrial appendage 6. History of hypertension, borderline hypotension this admission 7. History of hyperlipidemia, treated 8. Diet controlled diabetes, recent hemoglobin A1c 6.2% 9. Obstructive sleep apnea on home CPAP 10. Previous pituitary tumor 11. Never smoker, preoperative FEV1 91% of predicted 12. Prior daily wine consumption 13. 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 Patient does not appear to be in acute distress although he was recently placed on BiPAP by Dr. Mcmillan. He denies any pain. We have been in constant contact with the staff at [facility] during his stay. Patient has continued to show very little motivation to get up and move or eat both postoperatively in the hospital as well as at [facility]. The case was discussed in detail with Dr. Edmond. We ordered discharge meds, hold statin, Lopressor decreased to 50 mg twice daily, Cardizem CD changed to short acting Cardizem every 6 hours. Agree with IV diuresis. Echocardiogram ordered to evaluate LV function. BiPAP management per Dr. Mcmillan. PT/OT consulted. More recommendations to follow. Thank you for this consult, we will continue to follow his case. Time with Patient: Greater than 30
[2020-12-28 11:10] LABS: Glucose,Whole Blood 112 mg/dL (75-99)
[2020-12-28] MEDS: IPRATROPIUM-ALBUTEROL 3 ML NEB INHALATION SCH ×3 (11:44→20:14)
[2020-12-28] MEDS ORDERED: lisinopriL 5 MG TAB PO SCH (12:00)
[2020-12-28] MEDS ORDERED: IPRATROPIUM-ALBUTEROL 3 ML NEB INHALATION SCH (12:00)
[2020-12-28] MEDS: DILTIAZEM ORAL 30 MG TAB PO SCH ×2 (12:25→18:44)
[2020-12-28] MEDS: MIDODRINE 5 MG TAB PO SCH ×2 (12:25→16:19)
--- NOTE | 2020-12-28 12:32 | CONS ---
CONSULTATION CHIEF COMPLAINT: Shortness of breath. This is a 80-year-old gentleman with history of coronary artery disease, status post CABG, persistent atrial fibrillation, hypertension, COPD, who was discharged home on 12/25 following his bypass surgery. He was becoming more short of breath and was developing worsening fatigue and tiredness at home, due to which he was brought back to the hospital. At the time of my evaluation, he has a BiPAP on. Denies any chest pain but has shortness of breath. Chest x-ray shows bilateral infiltrate with mild pleural effusion. Patient has been treated with IV Lasix and nebulizers and is being admitted to ICU. He is currently on Lopressor 50 b.i.d. for rate control along with aspirin, Lasix IV 40 q.8, and he is on Coumadin. INR is therapeutic at 3.3. Patient has elevated liver enzymes. On his presentation his AST was 1180 and during his recent hospitalization it was around 52. PAST MEDICAL HISTORY: 1. Coronary artery disease, status post CABG. 2. Atrial fibrillation. 3. Diabetes. 4. COPD. MEDICATIONS: Medications at home included magnesium, nebulizers, insulin, Singulair, midodrine, Lopressor, Zestril, Flomax, Lipitor, Coumadin, Nexium, Cardizem, aspirin and ascorbic acid. ALLERGIES: There are NO KNOWN DRUG ALLERGIES. FAMILY HISTORY: Negative for premature coronary artery disease. SOCIAL HISTORY: Negative for current smoking, EtOH abuse or drug abuse. REVIEW OF SYSTEMS: HEENT is unremarkable. CARDIAC: As described above. RESPIRATORY: As described above. GI: Negative. GENITOURINARY: Negative. ALLERGY/IMMUNOLOGY: Negative. SKIN: Negative. MUSCULOSKELETAL: Significant for arthritis. PSYCHOSOCIAL: Negative. ENDOCRINE: Negative. DERMATOLOGY: Negative. CONSTITUTIONAL: Significant for fatigue, tiredness and not feeling well. PHYSICAL EXAMINATION: Heart rate is 93 beats per minute. Blood pressure is 94/50, respiratory rate is 22. Patient is on a BiPAP with an FiO2 of 50%. Chest exam reveals diminished air entry at the bases. Heart exam reveals first and second heart sounds. No gallop. Has a systolic murmur at the left lower sternal border. Abdomen is soft. Examination of extremities reveals bilateral 1+ pitting edema. LABS: Hemoglobin of 9.7, platelet count is 380. Potassium is 4.6. BUN is 62, creatinine is 1.7. Troponins are slightly elevated at 0.1, 0.1 and 0.1, probably related to the renal insufficiency. EKG shows atrial fibrillation with right bundle branch block and nonspecific ST-T wave changes. ASSESSMENT: 1. Shortness of breath secondary to acute-onset congestive heart failure and bibasilar atelectasis. 2. Coronary artery disease, status post coronary artery bypass grafting. 3. Permanent atrial fibrillation. PLAN: I will hold the Cardizem unless the heart rate is elevated, continue the metoprolol, treat with IV Lasix and obtain a 2D echo to reassess the LV function. MMODL / IJN: [id number] /
--- NOTE | 2020-12-28 13:09 | US ---
EXAMINATION TYPE: US chest DATE OF EXAM: 12/28/2020 COMPARISON: NONE CLINICAL HISTORY: april [pleural effusions. post op heart surgery, in EC with SOB, on O2, bilat effusio ns TECHNIQUE: Targeted ultrasound of the posterior lower Bilateral EXAM MEASUREMENTS: Right Pleural Effusion pocket size: 12.2 cm - Right skin surface to fluid distance: 4.8 cm Left Pleural Effusion pocket size: 10.5 cm Left skin surface to fluid distance: 5.3 cm Right side marked for possible thoracentesis outside the dept. Left side marked for possible thoracentesis outside the dept. Pulmonologists are able to review the images in the patient?s EMR. IMPRESSIONS: Bilateral pleural effusion
--- NOTE | 2020-12-28 13:19 | P.CNPUL ---
History of Present Illness Consult date: 12/28/20 Requesting physician: Monica Slater Reason for consult: dyspnea, hypoxemia, pneumonia, pleural effusion, abnormal CXR/CT Chief complaint: Shortness of breath. History of present illness: Pulmonary/critical care consult dated 12/28/2020. 80-year-old gentleman who was discharged from the hospital on December 25, status post four-vessel bypass grafting, who is readmitted to the hospital on December 27, for shortness of breath. The patient was in the hospital for 11 days. He had a very siri postoperative course characterized by weakness, and chronic of cold in breathing. The patient was discharged on Coumadin. The patient returns to the hospital complaining of increasing shortness of breath. We saw him in the emergency department. He was not having any chest pain. There is no fever or chills. He denied any nausea, vomiting, or diarrhea. There is no abdominal pain. His appetite was not very good. When we saw him down there, he had significant tachypnea and dyspnea. Hence, the patient was transferred up to the intensive care unit, to be placed on BiPAP therapy. We also wanted him to get some additional diuretic. The patient has a history of atrial fibrillation, diabetes, hyperlipidemia, hypertension, and recent bypass grafting. White count 15, hemoglobin 9.7, hematocrit 30.4, platelet count 382,000. PT 31.6 and INR was 3.3. Sodium was 131, potassium 4.6, chlorides 99, CO2 19, anion gap 13, BUN 62, and creatinine 1.76. Chest x-ray showed cardiomegaly, bilateral pleural effusions, and bibasilar infiltrates or atelectasis. Review of Systems REVIEW OF SYSTEMS: CONSTITUTIONAL: Weakness and fatigue. NEUROLOGIC: [ Negative.] HEENT: [ Negative.] CARDIAC: [Negative.] PULMONARY: Shortness of breath. GI: [Negative.] : [Negative.] RHEUMATOLOGIC: [ Negative.] IMMUNOLOGIC: [ Negative.] ENDOCRINE: [Negative. ] DERMATOLOGIC: [Negative.] Past Medical History Past Medical History: Atrial Fibrillation, Coronary Artery Disease (CAD), Diabetes Mellitus, Hyperlipidemia, Hypertension, Prostate Disorder, Sleep Apnea/CPAP/BIPAP History of Any Multi-Drug Resistant Organisms: None Reported Past Surgical History: Coronary Bypass/CABG, Heart Catheterization With Stent Additional Past Surgical History / Comment(s): pitutary tumor removed; PCI to the LAD in 2005; 4 vessel CABG 12/16/2020 Past Anesthesia/Blood Transfusion Reactions: No Reported Reaction Additional Past Anesthesia/Blood Transfusion Reaction / Comment(s): no hx blood transfusion Date of Last Stent Placement:: 2005 Past Psychological History: No Psychological Hx Reported Smoking Status: Never smoker Additional Past Alcohol Use History / Comment(s): Prior to open heart admission patient consumed wine daily Past Drug Use History: None Reported - Past Family History Father Family Medical History: Congestive Heart Failure (CHF), Coronary Artery Disease (CAD), Myocardial Infarction (GA) Additional Family Medical History / Comment(s): Premature coronary artery disease, CABG Mother Additional Family Medical History / Comment(s): Depression, committed suicide Medications and Allergies Home Medications Medication Instructions Recorded Confirmed Type Ascorbic Acid [Vitamin C] 500 mg PO DAILY@1700 04/29/15 12/27/20 History Cholecalciferol [Vitamin D3 (25 25 mcg PO DAILY@1700 04/29/15 12/27/20 History Mcg = 1000 Iu)] Esomeprazole Magnesium [NexIUM] 40 mg PO DAILY@0600 04/29/15 12/27/20 History Warfarin [Coumadin] 2.5 mg PO DIRECTED 04/29/15 12/27/20 History Calcium Carbonate [Calcium] 300 mg PO DAILY@1700 04/30/16 12/27/20 History Diltiazem Cd [Cardizem CD] 120 mg PO DAILY@0800 06/10/20 12/27/20 History Latanoprost/Pf [Latanoprost 0.005% 1 drop BOTH EYES HS@209906/10/20 12/27/20 Hi story Eye Drop] Montelukast [Singulair] 10 mg PO HS@209906/10/20 12/27/20 History Warfarin [Coumadin] 5 mg PO DIRECTED 06/10/20 12/27/20 History Acetaminophen Tab [Tylenol] 650 mg PO Q4HR PRN tab 12/25/20 12/27/20 Rx lisinopriL [Zestril] 5 mg PO DAILY@1200 tab 12/25/20 12/27/20 Rx Aspirin 81 mg PO DAILY@1700 12/27/20 12/27/20 History Atorvastatin [Lipitor] 40 mg PO HS@2100 12/27/20 12/27/20 History INSULIN ASPART (NovoLOG) [NovoLOG See Protocol SQ ACHS 12/27/20 12/27/20 History (formulary)] Ipratropium-Albuterol Nebulize 3 ml INHALATION RT-Q2H PRN 12/27/20 12/27/20 History [Duoneb 0.5 mg-3 mg/3 ml Soln] Ipratropium-Albuterol Nebulize 3 ml INHALATION RT-Q6H 12/27/20 12/27/20 History [Duoneb 0.5 mg-3 mg/3 ml Soln] Magnesium Hydroxide [Milk of 7,200 mg PO DAILY PRN 12/27/20 12/27/20 History Magnesia Concentrate] Metoprolol Tartrate [Lopressor] 75 mg PO BID@0800,1700 12/27/20 12/27/20 History Midodrine HCl 5 mg PO TID@0800,1200,1700 12/27/20 12/27/20 History Na Phos,M-B/Na Phos,Di-Ba [Fleet 133 ml RECTAL DAILY PRN 12/27/20 12/27/20 History Adult] Sennosides-Docusate Sodium 2 tab PO HS PRN 12/27/20 12/27/20 History [Senokot-S] Tamsulosin [Flomax] 0.4 mg PO DAILY@0800 12/27/20 12/27/20 History bisacodyL [Dulcolax] 10 mg RECTAL DAILY PRN 12/27/20 12/27/20 History Allergies Allergy/AdvReac Type Severity Reaction Status Date / Time No Known Allergies Allergy Verified 12/27/20 19:11 Physical Exam Osteopathic Statement: *. No significant issues noted on an osteopathic structural exam other than those noted in the History and Physical/Consult. Vitals: Vital Signs Temp Pulse Resp BP Pulse Ox 12/28/20 10:18 93 24 94/50 93 L 12/28/20 08:37 98.2 F 87 20 93/63 98 12/28/20 02:00 83 18 110/71 100 12/28/20 00:00 80 20 118/67 98 12/27/20 22:55 77 19 119/75 99 12/27/20 22:00 79 24 108/60 100 12/27/20 21:40 81 20 108/60 92 L 12/27/20 20:38 78 20 106/75 95 12/27/20 19:00 75 24 102/69 18 L 12/27/20 18:30 77 24 99/61 18 L 12/27/20 18:00 73 21 97/64 98 12/27/20 17:30 73 26 H 103/64 99 12/27/20 17:11 22 12/27/20 17:07 97.8 F 73 20 107/59 93 L Intake and Output 12/27/20 12/28/20 12/28/20 22:59 06:59 14:59 Output Total 150 1000 Balance -150 -1000 Output: Urine 150 1000 Other: # Voids 1 Weight 81.647 kg Mild respiratory distress with increased respiratory rate, oriented 3. Saturations are in the mid 90s on 5 L nasal cannula. HEENT examination is grossly unremarkable. Neck supple. Full range of motion. No adenopathy thyromegaly or neck vein distention. Cardiovascular examination reveals regular rhythm rate. S1-S2 normal. No S3 or S4. No discernible murmur noted. Heart rate 93 bpm. Heart sounds are distant. Lungs reveal diffuse bibasilar crackles. There is dullness at the bases. Sc attered moderate rhonchi are noted. No wheezes appreciated. Abdomen soft bowel sounds are heard. No masses or tenderness. Extremities are intact. No cyanosis or clubbing. 1+ edema is noted. Skin is without rash or lesion. Neurologic examination is brief but nonfocal. Results - Laboratory Findings CBC and BMP: 12/28/20 08:47 12/28/20 08:47 PT/INR, D-dimer PT 31.6 sec (9.0-12.0) H 12/28/20 08:47 INR 3.3 (<1.2) H 12/28/20 08:47 Abnormal lab findings: Abnormal Labs 12/27/20 12/27/20 12/27/20 17:52 17:52 17:52 WBC 16.1 H RBC 3.13 L Hgb 9.6 L Hct 29.9 L RDW 16.7 H Neutrophils # 13.3 H PT 54.1 H INR 5.6 H* APTT 30.6 H VBG pH VBG pCO2 VBG HCO3 Sodium 128 L Chloride 97 L Carbon Dioxide 18 L BUN 56 H Creatinine 1.68 H Glucose 132 H POC Glucose (mg/dL) Plasma Lactic Acid Juan Calcium 8.0 L Magnesium 2.4 H Total Bilirubin 6.0 H AST 1180 H ALT 846 H Alkaline Phosphatase 384 H Troponin I Total Protein 5.8 L Albumin 3.3 L Lipase 12/27/20 12/27/20 12/27/20 17:52 17:52 17:52 WBC RBC Hgb Hct RDW Neutrophils # PT INR APTT VBG pH 7.44 H VBG pCO2 26 L VBG HCO3 18 L Sodium Chloride Carbon Dioxide BUN Creatinine Glucose POC Glucose (mg/dL) Plasma Lactic Acid Juan 3.8 H* Calcium Magnesium Total Bilirubin AST ALT Alkaline Phosphatase Troponin I 0.162 H* Total Protein Albumin Lipase 12/27/20 12/27/20 12/27/20 17:52 22:23 22:23 WBC RBC Hgb Hct RDW Neutrophils # PT INR APTT VBG pH VBG pCO2 VBG HCO3 Sodium Chloride Carbon Dioxide BUN Creatinine Glucose POC Glucose (mg/dL) Plasma Lactic Acid Juan 2.1 H* Calcium Magnesium Total Bilirubin AST ALT Alkaline Phosphatase Troponin I 0.144 H* Total Protein Albumin Lipase 458 H 12/28/20 12/28/20 12/28/20 01:40 08:47 08:47 WBC 15.0 H RBC 3.10 L Hgb 9.7 L Hct 30.4 L RDW 16.7 H Neutrophils # 12.4 H PT INR APTT VBG pH VBG pCO2 VBG HCO3 Sodium 131 L Chloride Carbon Dioxide 19 L BUN 62 H Creatinine 1.76 H Glucose 129 H POC Glucose (mg/dL) Plasma Lactic Acid Juan Calcium 8.3 L Magnesium Total Bilirubin 7.3 H AST 949 H ALT 881 H Alkaline Phosphatase 411 H Troponin I 0.148 H* Total Protein 6.2 L Albumin Lipase 12/28/20 12/28/20 08:47 11:08 WBC RBC Hgb Hct RDW Neutrophils # PT 31.6 H INR 3.3 H APTT VBG pH VBG pCO2 VBG HCO3 Sodium Chloride Carbon Dioxide BUN Creatinine Glucose POC Glucose (mg/dL) 112 H Plasma Lactic Acid Juan Calcium Magnesium Total Bilirubin AST ALT Alkaline Phosphatase Troponin I Total Protein Albumin Lipase - Diagnostic Findings Chest x-ray: image reviewed Assessment and Plan Assessment: Acute hypoxemic respiratory failure, likely on the basis of fluid overload/pleural effusions. Status post four-vessel bypass grafting, with discharged from the hospital on December 25. Patient had an 11 day hospital stay. History of atrial fibrillation. History of diabetes mellitus. Hyperlipidemia. Hypertension. Lifelong nontobacco use. History of BPH. Plan: Plan dated 12/28/2020. The patient was transferred to the intensive care unit for closer management and monitoring. He was placed on BiPAP, which should be able to help him with his overall cardiac function and the fluid overload state that he has developed. In addition, if we are able to hold his blood thinners, my partner can probably do a thoracentesis on this patient this week. Currently, he is properly anticoagulated. He remains on Coumadin. I will recheck with cardiothoracic surgery and ask them this. Additional recommendations and suggestions are forthcoming. Prognosis is guarded. Time with Patient: Greater than 30
--- NOTE | 2020-12-28 13:37 | ECHOF ---
Referral Reason:eval LV function, effusion MEASUREMENTS -------- HEIGHT: 167.6 cm WEIGHT: 81.6 kg BP: 98/72 RVIDd: 3.3 cm (< 3.3) IVSd: 1.5 cm (0.6 - 1.1) LVIDd: 3.9 cm (3.9 - 5.3) LVPWd: 1.6 cm (0.6 - 1.1) IVSs: 2.0 cm LVIDs: 1.5 cm LVPWs: 1.6 cm LAESV Index (A-L): 62.96 ml/m RAP: 5.00 mmHg RVSP: 24.10 mmHg FINDINGS -------- This was a technically difficult study with suboptimal views. TDS due to CABG and Bandages. The left ventricular size is normal. There is moderate concentric left ventricular hypertrophy. O verall left ventricular systolic function is mildly impaired with, an EF between 45 - 50 %. Septal wall motion is delayed and consistent with prior cardiac surgery. The right ventricle is mild to moderately enlarged. LA is severely dilated >40 ml/m2 The right atrium is moderately enlarged. 5.0mg of Lumason was utilized for enhancement of images Interatrial and interventricular septum intact. The aortic valve was not well visualized. There is no evidence of aortic regurgitation. The mitral valve was not well visualized. Mild mitral annular calcification present. [id number] rate mitral regurgitation is present. Mild tricuspid regurgitation present. There is no evidence of pulmonary hypertension. The right v entricular systolic pressure, as measured by Doppler, is 24.10mmHg. The aortic root size is normal. IVC Not well visulized. There is a trivial pericardial effusion present. CONCLUSIONS -------- 1. The left ventricular size is normal. 2. There is moderate concentric left ventricular hypertrophy. 3. Overall left ventricular systolic function is mildly impaired with, an EF between 45 - 50 %. 4. Septal wall motion is delayed and consistent with prior cardiac surgery. 5. The right ventricle is mild to moderately enlarged. 6. LA is severely dilated >40 ml/m2 7. The right atrium is moderately enlarged. 8. Mild mitral annular calcification present. 9. [id number] mitral regurgitation is present. 10. Mild tricuspid regurgitation present. BROOD HATCHERY MANAGER: Vane Godoy, [facility]
--- NOTE | 2020-12-28 14:57 | P.HPIM ---
History of Present Illness H&P Date: 12/28/20 This is a 80-year-old male patient of Dr. Campos and Dr. Mullins with past medical history of chronic persistent atrial fibrillation, diabetes mellitus type 2, hypertension, hyperlipidemia, history of pituitary tumor resection, obstructive sleep apnea on BiPAP, gastroesophageal reflux disease, benign prostatic hypertrophy. He should also has history of coronary artery disease status post PCI to the LAD in 2005, heart catheterization in October 2020 found severe triple-vessel disease, subsequently admitted to the hospital for elective coronary artery bypass grafting 12/16 for four-vessel bypass MORAN to LAD, left radial artery from the aorta to the first obtuse marginal artery, reverse saphenous vein graft from the aorta to the second diagonal artery, reverse saphenous vein graft from the aorta to the posterior descending artery, endoscopic harvesting of the left radial artery, endoscopic harvesting of the left greater saphenous vein from ankle to the groin, exclusion of the left atrial appendage. During his last admission, he remained in ICU,Until December 24,, and after he was transferred to [facility] for cardiac recovery program. He has chronic atrial fibrillation, diabetes mellitus type 2, hypertension, hyperlipidemia, history of pituitary gland resection, obstructive sleep apnea, BPH with urinary retention, and delirium.. At the time of discharge, he was on Coumadin and Singulair Cardizem CD lisinopril Tylenol, he was taken off atenolol Vytorin lisinopril Imdur aspirin and nitro. -He comes back to the emergency room 2 days later, from [facility], secondary to shortness of breath, and edema. She also has worsening of her liver issues, with no visible jaundice. On ER presentation, he has indwelling Barrow catheter, there is no fever, no focal deficit, chest pain, he has shortness of breath, no vomiting, no diarrhea, no melena. In the emergency room, EKG shows atrial fib rillation heart rate of 79, no significant change compared to 927 EKG, double basic count is 15, hemoglobin of 9, sodium of 131, BUN 62 creatinine 4.7, CO2 of 19 total bili of 7.3, AST 949 ALT 881, alkaline phosphatase 411, troponin is stagnant at 0.14, and 0.148. Lactic acid level was 2.1, INR is 3.3 ultrasound of the gallbladder, shows common bile duct is normal, liver is enlarged, otherwise no other pathologies noted. Chest x-ray shows bilateral pleural effusion, basilar pulmonary infiltrates, which slightly is worse compared to previous, mild heart failure is possible, cardiomegaly some change patient is admitted to ICU with consultation to critical care medicine Dr. Vásquez, and cardiology. Chest ultrasound is ordered CMV and hepatitis panels ordered, patient would need a CAT scan of the abdomen, to eval for spleen gallbladder, Tylenol is discontinued, Lipitor is discontinued check for haptoglobin, reticulocyte count, and iron studies to evaluate portal system. 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 neck pain, Denies bleeding gums, Denies dental pain, Denies dysphagia, Denies epistaxis, Denies headache, Denies hoarseness, Denies mouth pain, Denies nasal congestion, Denies nasal discharge, Denies neck fullness/pressure, Denies neck lump, Denies nose pain, Denies odynophagia, Denies post-nasal drip, Denies sinus pain, Denies sinus pressure, Denies swelling in mouth, Denies swelling in throat, Denies sore throat, Denies vertigo, Denies voice changes Cardiovascular: Reports as per HPI Respiratory: Reports as per HPI Gastrointestinal: Reports as per HPI, Reports bloating, Reports indigestion, Reports jaundice, Reports loss of appetite, Denies nausea, Denies vomiting Genitourinary: Reports as per HPI Musculoskeletal: Reports as per HPI, Reports gait dysfunction, Reports limitation of motion, Reports muscle weakness Integumentary: Reports as per HPI Neurological: Reports as per HPI, Reports balance difficulties, Reports weakness, Denies head injury, Denies motor disturbance, Denies paresthesias, Den ies sensory deficit, Denies tremors, Denies vertigo Psychiatric: Reports as per HPI Endocrine: Reports as per HPI, Denies cold intolerance, Denies deepening of the voice, Denies excessive sweating, Denies excessive thirst, Denies fatigue, Denies flushing, Denies heat intolerance, Denies high blood sugars, Denies increase in ring/shoe/hat size, Denies low blood sugars, Denies nocturia, Denies palpitations, Denies polydipsia, Denies polyphagia, Denies polyuria, Denies proptosis, Denies recent glucocorticoid use, Denies thyroid mass, Denies weight change Hematologic/Lymphatic: Reports as per HPI Allergic/Immunologic: Reports as per HPI Past Medical History Past Medical History: Atrial Fibrillation, Coronary Artery Disease (CAD), Diabetes Mellitus, Hyperlipidemia, Hypertension, Prostate Disorder, Sleep Apnea/CPAP/BIPAP History of Any Multi-Drug Resistant Organisms: None Reported Past Surgical History: Coronary Bypass/CABG, Heart Catheterization With Stent Additional Past Surgical History / Comment(s): pitutary tumor removed; PCI to the LAD in 2005; 4 vessel CABG 12/16/2020 Past Anesthesia/Blood Transfusion Reactions: No Reported Reaction Additional Past Anesthesia/Blood Transfusion Reaction / Comment(s): no hx blood transfusion Date of Last Stent Placement:: 2005 Past Psychological History: No Psychological Hx Reported Smoking Status: Never smoker Additional Past Alcohol Use History / Comment(s): Prior to open heart admission patient consumed wine daily Past Drug Use History: None Reported - Past Family History Father Family Medical History: Congestive Heart Failure (CHF), Coronary Artery Disease (CAD), Myocardial Infarction (CT) Additional Family Medical History / Comment(s): Premature coronary artery d isease, CABG Mother Additional Family Medical History / Comment(s): Depression, committed suicide Medications and Allergies Home Medications Medication Instructions Recorded Confirmed Type Ascorbic Acid [Vitamin C] 500 mg PO DAILY@1700 04/29/15 12/27/20 History Cholecalciferol [Vitamin D3 (25 25 mcg PO DAILY@1700 04/29/15 12/27/20 History Mcg = 1000 Iu)] Esomeprazole Magnesium [NexIUM] 40 mg PO DAILY@0600 04/29/15 12/27/20 History Warfarin [Coumadin] 2.5 mg PO DIRECTED 04/29/15 12/27/20 History Calcium Carbonate [Calcium] 300 mg PO DAILY@1700 04/30/16 12/27/20 History Diltiazem Cd [Cardizem CD] 120 mg PO DAILY@0800 06/10/20 12/27/20 History Latanoprost/Pf [Latanoprost 0.005% 1 drop BOTH EYES HS@209906/10/20 12/27/20 History Eye Drop] Montelukast [Singulair] 10 mg PO HS@209906/10/20 12/27/20 History Warfarin [Coumadin] 5 mg PO DIRECTED 06/10/20 12/27/20 History Acetaminophen Tab [Tylenol] 650 mg PO Q4HR PRN tab 12/25/20 12/27/20 Rx lisinopriL [Zestril] 5 mg PO DAILY@1200 tab 12/25/20 12/27/20 Rx Aspirin 81 mg PO DAILY@1700 12/27/20 12/27/20 History Atorvastatin [Lipitor] 40 mg PO HS@209912/27/20 12/27/20 History INSULIN ASPART (NovoLOG) [NovoLOG See Protocol SQ ACHS 12/27/20 12/27/20 History (formulary)] Ipratropium-Albuterol Nebulize 3 ml INHALATION RT-Q2H PRN 12/27/20 12/27/20 History [Duoneb 0.5 mg-3 mg/3 ml Soln] Ipratropium-Albuterol Nebulize 3 ml INHALATION RT-Q6H 12/27/20 12/27/20 History [Duoneb 0.5 mg-3 mg/3 ml Soln] Magnesium Hydroxide [Milk of 7,200 mg PO DAILY PRN 12/27/20 12/27/20 History Magnesia Concentrate] Metoprolol Tartrate [Lopressor] 75 mg PO BID@0800,1700 12/27/20 12/27/20 History Midodrine HCl 5 mg PO TID@0800,1200,1700 12/27/20 12/27/20 History Na Phos,M-B/Na Phos,Di-Ba [Fleet 133 ml RECTAL DAILY PRN 12/27/20 12/27/20 History Adult] Sennosides-Docusate Sodium 2 tab PO HS PRN 12/27/20 12/27/20 History [Senokot-S] Tamsulosin [Flomax] 0.4 mg PO DAILY@0800 12/27/20 12/27/20 History bisacodyL [Dulcolax] 10 mg RECTAL DAILY PRN 12/27/20 12/27/20 History Allergies Allergy/AdvReac Type Severity Reaction Status Date / Time No Known Allergies Allergy Verified 12/27/20 19:11 Physical Exam Vitals: Vital Signs Temp Pulse Resp BP Pulse Ox 12/28/20 10:18 93 24 94/50 93 L 12/28/20 08:37 98.2 F 87 20 93/63 98 12/28/20 02:00 83 18 110/71 100 12/28/20 00:00 80 20 118/67 98 12/27/20 22:55 77 19 119/75 99 12/27/20 22:00 79 24 108/60 100 12/27/20 21:40 81 20 108/60 92 L 12/27/20 20:38 78 20 106/75 95 12/27/20 19:00 75 24 102/69 18 L 12/27/20 18:30 77 24 99/61 18 L 12/27/20 18:00 73 21 97/64 98 12/27/20 17:30 73 26 H 103/64 99 12/27/20 17:11 22 12/27/20 17:07 97.8 F 73 20 107/59 93 L Intake and Output 12/27/20 12/28/20 12/28/20 22:59 06:59 14:59 Output Total 150 1000 Balance -150 -1000 Output: Urine 150 1000 Other: # Voids 1 Weight 81.647 kg - Constitutional General appearance: cooperative - EENT Eyes: anicteric sclerae, PERRLA ENT: other - Neck Neck: normal ROM - Respiratory Respiratory: bilateral: CTA, diminished, dullness, negative: rales, rhonchi, wheezing, prolonged expiration, prolonged inspiration, other - Cardiovascular Rhythm: regularly irregular Heart sounds: normal: S1, S2 - Integumentary Integumentary: normal - Neurologic Neurologic: CNII-XII intact - Musculoskeletal Musculoskeletal: generalized weakness Results CBC & Chem 7: 12/28/20 08:47 12/28/20 08:47 Labs: Abnormal Lab Results - Last 24 Hours (Table) 12/27/20 12/27/20 12/27/20 Range/Units 17:52 17:52 17:52 WBC 16.1 H (3.8-10.6) k/uL RBC 3.13 L (4.30-5.90) m/uL Hgb 9.6 L (13.0-17.5) gm/dL Hct 29.9 L (39.0-53.0) % RDW 16.7 H (11.5-15.5) % Neutrophils # 13.3 H (1.3-7.7) k/uL PT 54.1 H (9.0-12.0) sec INR 5.6 H* (<1.2) APTT 30.6 H (22.0-30.0) sec VBG pH (7.31-7.41) VBG pCO2 (37-51) mmHg VBG HCO3 (24-28) mmol/L Sodium 128 L (137-145) mmol/L Chloride 97 L (98-107) mmol/L Carbon Dioxide 18 L (22-30) mmol/L BUN 56 H (9-20) mg/dL Creatinine 1.68 H (0.66-1.25) mg/dL Glucose 132 H (74-99) mg/dL POC Glucose (mg/dL) (75-99) mg/dL Plasma Lactic Acid Juan (0.7-2.0) mmol/L Calcium 8.0 L (8.4-10.2) mg/dL Magnesium 2.4 H (1.6-2.3) mg/dL Total Bilirubin 6.0 H (0.2-1.3) mg/dL AST 1180 H (17-59) U/L ALT 846 H (4-49) U/L Alkaline Phosphatase 384 H (38-126) U/L Troponin I (0.000-0.034) ng/mL Total Protein 5.8 L (6.3-8.2) g/dL Albumin 3.3 L (3.5-5.0) g/dL Lipase (23-300) U/L 12/27/20 12/27/20 12/27/20 Range/Units 17:52 17:52 17:52 WBC (3.8-10.6) k/uL RBC (4.30-5.90) m/uL Hgb (13.0-17.5) gm/dL Hct (39.0-53.0) % RDW (11.5-15.5) % Neutrophils # (1.3-7.7) k/uL PT (9.0-12.0) sec INR (<1.2) APTT (22.0-30.0) sec VBG pH 7.44 H (7.31-7.41) VBG pCO2 26 L (37-51) mmHg VBG HCO3 18 L (24-28) mmol/L Sodium (137-145) mmol/L Chloride (98-107) mmol/L Carbon Dioxide (22-30) mmol/L BUN (9-20) mg/dL Creatinine (0.66-1.25) mg/dL Glucose (74-99) mg/dL POC Glucose (mg/dL) (75-99) mg/dL Plasma Lactic Acid Juan 3.8 H* (0.7-2.0) mmol/L Calcium (8.4-10.2) mg/dL Magnesium (1.6-2.3) mg/dL Total Bilirubin (0.2-1.3) mg/dL AST (17-59) U/L ALT (4-49) U/L Alkaline Phosphatase (38-126) U/L Troponin I 0.162 H* (0.000-0.034) ng/mL Total Protein (6.3-8.2) g/dL Albumin (3.5-5.0) g/dL Lipase (23-300) U/L 12/27/20 12/27/20 12/27/20 Range/Units 17:52 22:23 22:23 WBC (3.8-10.6) k/uL RBC (4.30-5.90) m/uL Hgb (13.0-17.5) gm/dL Hct (39.0-53.0) % RDW (11.5-15.5) % Neutrophils # (1.3-7.7) k/uL PT (9.0-12.0) sec INR (<1.2) APTT (22.0-30.0) sec VBG pH (7.31-7.41) VBG pCO2 (37-51) mmHg VBG HCO3 (24-28) mmol/L Sodium (137-145) mmol/L Chloride (98-107) mmol/L Carbon Dioxide (22-30) mmol/L BUN (9-20) mg/dL Creatinine (0.66-1.25) mg/dL Glucose (74-99) mg/dL POC Glucose (mg/dL) (75-99) mg/dL Plasma Lactic Acid Juan 2.1 H* (0.7-2.0) mmol/L Calcium (8.4-10.2) mg/dL Magnesium (1.6-2.3) mg/dL Total Bilirubin (0.2-1.3) mg/dL AST (17-59) U/L ALT (4-49) U/L Alkaline Phosphatase (38-126) U/L Troponin I 0.144 H* (0.000-0.034) ng/mL Total Protein (6.3-8.2) g/dL Albumin (3.5-5.0) g/dL Lipase 458 H (23-300) U/L 12/28/20 12/28/20 12/28/20 Range/Units 01:40 08:47 08:47 WBC 15.0 H (3.8-10.6) k/uL RBC 3.10 L (4.30-5.90) m/uL Hgb 9.7 L (13.0-17.5) gm/dL Hct 30.4 L (39.0-53.0) % RDW 16.7 H (11.5-15.5) % Neutrophils # 12.4 H (1.3-7.7) k/uL PT (9.0-12.0) sec INR (<1.2) APTT (22.0-30.0) sec VBG pH (7.31-7.41) VBG pCO2 (37-51) mmHg VBG HCO3 (24-28) mmol/L Sodium 131 L (137-145) mmol/L Chloride (98-107) mmol/L Carbon Dioxide 19 L (22-30) mmol/L BUN 62 H (9-20) mg/dL Creatinine 1.76 H (0.66-1.25) mg/dL Glucose 129 H (74-99) mg/dL POC Glucose (mg/dL) (75-99) mg/dL Plasma Lactic Acid Juan (0.7-2.0) mmol/L Calcium 8.3 L (8.4-10.2) mg/dL Magnesium (1.6-2.3) mg/dL Total Bilirubin 7.3 H (0.2-1.3) mg/dL AST 949 H (17-59) U/L ALT 881 H (4-49) U/L Alkaline Phosphatase 411 H (38-126) U/L Troponin I 0.148 H* (0.000-0.034) ng/mL Total Protein 6.2 L (6.3-8.2) g/dL Albumin (3.5-5.0) g/dL Lipase (23-300) U/L 12/28/20 12/28/20 Range/Units 08:47 11:08 WBC (3.8-10.6) k/uL RBC (4.30-5.90) m/uL Hgb (13.0-17.5) gm/dL Hct (39.0-53.0) % RDW (11.5-15.5) % Neutrophils # (1.3-7.7) k/uL PT 31.6 H (9.0-12.0) sec INR 3.3 H (<1.2) APTT (22.0-30.0) sec VBG pH (7.31-7.41) VBG pCO2 (37-51) mmHg VBG HCO3 (24-28) mmol/L Sodium (137-145) mmol/L Chloride (98-107) mmol/L Carbon Dioxide (22-30) mmol/L BUN (9-20) mg/dL Creatinine (0.66-1.25) mg/dL Glucose (74-99) mg/dL POC Glucose (mg/dL) 112 H (75-99) mg/dL Plasma Lactic Acid Juan (0.7-2.0) mmol/L Calcium (8.4-10.2) mg/dL Magnesium (1.6-2.3) mg/dL Total Bilirubin (0.2-1.3) mg/dL AST (17-59) U/L ALT (4-49) U/L Alkaline Phosphatase (38-126) U/L Troponin I (0.000-0.034) ng/mL Total Protein (6.3-8.2) g/dL Albumin (3.5-5.0) g/dL Lipase (23-300) U/L Laboratory Results WBC 15.0 k/uL (3.8-10.6) H 12/28/20 08:47 RBC 3.10 m/uL (4.30-5.90) L 12/28/20 08:47 Hgb 9.7 gm/dL (13.0-17.5) L 12/28/20 08:47 Hct 30.4 % (39.0-53.0) L 12/28/20 08:47 MCV 98.1 fL (80.0-100.0) 12/28/20 08:47 MCH 31.5 pg (25.0-35.0) 12/28/20 08:47 MCHC 32.1 g/dL (31.0-37.0) 12/28/20 08:47 RDW 16.7 % (11.5-15.5) H 12/28/20 08:47 Plt Count 382 k/uL (150-450) 12/28/20 08:47 MPV 7.5 12/28/20 08:47 Neutrophils % 83 % 12/28/20 08:47 Lymphocytes % 9 % 12/28/20 08:47 Monocytes % 6 % 12/28/20 08:47 Eosinophils % 0 % 12/28/20 08:47 Basophils % 0 % 12/28/20 08:47 Neutrophils # 12.4 k/uL (1.3-7.7) H 12/28/20 08:47 Lymphocytes # 1.3 k/uL (1.0-4.8) 12/28/20 08:47 Monocytes # 1.0 k/uL (0-1.0) 12/28/20 08:47 Eosinophils # 0.0 k/uL (0-0.7) 12/28/20 08:47 Basophils # 0.0 k/uL (0-0.2) 12/28/20 08:47 Hypochromasia Moderate 12/28/20 08:47 Poikilocytosis Moderate 12/28/20 08:47 Anisocytosis Slight 12/28/20 08:47 Macrocytosis Slight 12/28/20 08:47 PT 31.6 sec (9.0-12.0) H 12/28/20 08:47 INR 3.3 (<1.2) H 12/28/20 08:47 APTT 30.6 sec (22.0-30.0) H 12/27/20 17:52 VBG pH 7.44 (7.31-7.41) H 12/27/20 17:52 VBG pCO2 26 mmHg (37-51) L 12/27/20 17:52 VBG HCO3 18 mmol/L (24-28) L 12/27/20 17:52 Sodium 131 mmol/L (137-145) L 12/28/20 08:47 Potassium 4.6 mmol/L (3.5-5.1) 12/28/20 08:47 Chloride 99 mmol/L (98-107) 12/28/20 08:47 Carbon Dioxide 19 mmol/L (22-30) L 12/28/20 08:47 Anion Gap 13 mmol/L 12/28/20 08:47 BUN 62 mg/dL (9-20) H 12/28/20 08:47 Creatinine 1.76 mg/dL (0.66-1.25) H 12/28/20 08:47 Est GFR (CKD-EPI)AfAm 42 (>60 ml/min/1.73 sqM) 12/28/20 08:47 Est GFR (CKD-EPI)NonAf 36 (>60 ml/min/1.73 sqM) 12/28/20 08:47 Glucose 129 mg/dL (74-99) H 12/28/20 08:47 POC Glucose (mg/dL) 112 mg/dL (75-99) H 12/28/20 11:08 POC Glu Sensitometrist ID Eleni Jeronimo 12/28/20 11:08 Lactic Ac Sepsis Rflx Y 12/27/20 23:24 Plasma Lactic Acid Juan 1.7 mmol/L (0.7-2.0) 12/28/20 01:40 Calcium 8.3 mg/dL (8.4-10.2) L 12/28/20 08:47 Magnesium 2.4 mg/dL (1.6-2.3) H 12/27/20 17:52 Total Bilirubin 7.3 mg/dL (0.2-1.3) H 12/28/20 08:47 AST 949 U/L (17-59) H 12/28/20 08:47 ALT 881 U/L (4-49) H 12/28/20 08:47 Alkaline Phosphatase 411 U/L (38-126) H 12/28/20 08:47 Ammonia <9 umol/L (<30) 12/27/20 17:52 Troponin I 0.148 ng/mL (0.000-0.034) H* 12/28/20 01:40 NT-Pro-B Natriuret Pep 5370 pg/mL 12/27/20 17:52 Total Protein 6.2 g/dL (6.3-8.2) L 12/28/20 08:47 Albumin 3.5 g/dL (3.5-5.0) 12/28/20 08:47 Lipase 458 U/L (23-300) H 12/27/20 17:52 Coronavirus (PCR) Not Detected (Not Detectd) 12/27/20 17:52 CMV IgG Ab Nonreactive (Nonreactive) 12/27/20 17:52 CMV IgM Ab Nonreactive (Nonreactive) 12/27/20 17:52 Thrombosis Risk Factor Assmnt - DVT/VTE Prophylaxis DVT/VTE Prophylaxis: Mechanical Prophylaxis ordered, Contraindicated - See note Assessment and Plan Plan: 1. Significant pulmonary edema, chf pulm edema with bilateral pleural effusion, thoracic ultrasound showing 12 cm pocket on the right, tense in the pocket in the left worse than previous, patient is going to undergo thoracentesis, possible bilateral, with Dr. Mcmillan deciding on the timing. Patient's INR is 2.3, patient's coagulopathic, request the nurse to call anticoagulation management whether Coumadin Dr. Vargas, for anticoagulation management, might need vitamin K, 2. Severe coagulopathy, on Coumadin, with worsening of transaminitis, with jaundice, suspect hepatobiliary obstruction, however, and bile duct is normal, Lipitor and Tylenol was discontinued and held. No GI consultation is available, till January 12, monitor liver function tests, check for hepatitis panel, and CMP panel, check for CT abdomen and pelvis, for ascites and liver abnormalities. INR to be monitored daily3 3 Coronary artery disease status post 4 vessel CABG 12/16. Continue current management per cardio thoracic surgery. Continue aspirin 81 mg daily, Lipitor 40 mg daily, Lopressor 75 mg twice daily 4 Chronic persistent atrial fibrillation. Continue Lopressor, Cardizem CD 120 mg daily. Patient is in, patient's coagulopathic, with transaminitis, Coumadin is held 5. Acute hypoxemic respiratory failure, patient's on BiPAP supplementatio, followed closely by critical care medicine and pulmonary 6 Diabetes mellitus type 2. Continue with NovoLog scale before meals and at bedtime, blood sugar is controlled. 7. Hypertension. Continue Lopressor 75 mg twice daily, lisinopril 5 mg daily. 8. Hyperlipidemia. Continue Lipitor 40 mg daily 9 History of pituitary gland resection. 10 Obstructive sleep apnea on BiPAP. 11. Gastroesophageal reflux disease. 12. Benign prostatic hypertrophy with urinary retention. DVT prophylaxis patient was on Coumadin, patient coagulopathic, anticoagulation is held, until safe to proceed. H is in place HA hoses in placeTED hoseGI prophylaxis, Pepcid
[2020-12-28] MEDS ORDERED: IOPAMIDOL CONTRAST (ORAL USE) VIAL PO PRN (14:58)
[2020-12-28] MEDS: CHOLECALCIFEROL 25 MCG (1000 IU) TABLET PO SCH (16:19)
[2020-12-28] MEDS: ASPIRIN 81 MG PO SCH (16:19)
[2020-12-28] MEDS: ASCORBIC ACID 500 MG TAB PO SCH (16:19)
[2020-12-28] MEDS: CALCIUM CARBONATE 500 MG CHEWABLE PO SCH (16:20)
[2020-12-28] MEDS ORDERED: METOPROLOL TARTRATE 25 MG TAB PO SCH (17:00)
[2020-12-28 18:16] LABS: Glucose,Whole Blood 150 mg/dL (75-99)
[2020-12-28] MEDS: LATANOPROST 0.005% OPHTH DROPS 2.5 ML BTL BOTH EYES SCH (20:37)
[2020-12-28] MEDS: MONTELUKAST 10 MG TAB PO SCH (20:37)
[2020-12-28] MEDS: INSULIN ASPART (NovoLOG) 100 UNIT/ML VIAL SQ SCH (20:50)
[2020-12-28 20:56] LABS: Glucose,Whole Blood 151 mg/dL (75-99)
[2020-12-29 00:02] LABS: Hepatitis B Core IgM Nonreactive (Nonreactive); Hepatitis B Surface Antigen Nonreactive (Nonreactive); Hepatitis C IgG Antibody Nonreactive (Nonreactive)
[2020-12-29 00:03] LABS: Hepatitis A Antibody IgM Nonreactive (Nonreactive)
[2020-12-29] MEDS: FUROSEMIDE 10 MG/ML 4 ML VIAL IV SCH (00:11)
[2020-12-29] MEDS: DILTIAZEM ORAL 30 MG TAB PO SCH ×4 (00:11→18:58)
[2020-12-29] MEDS: PANTOPRAZOLE 40 MG TABLET PO SCH (05:56)
[2020-12-29 06:11] LABS: Anisocytosis Slight; Basophils % (A) 0 %; Eosinophils # (A) 0.1 k/uL (0-0.7); Eosinophils % (A) 1 %; HCT 31.7 % (39.0-53.0); Hypochromasia Moderate; Lymphocytes # (A) 1.2 k/uL (1.0-4.8); Lymphocytes % (A) 10 %; MCH 30.5 pg (25.0-35.0); MCHC 31.5 g/dL (31.0-37.0); MCV 96.6 fL (80.0-100.0); Macrocytosis Slight; Mean Platelet Volume 7.6; Monocytes # (A) 0.9 k/uL (0-1.0); Monocytes % (A) 7 %; Neutrophils # (A) 10.2 k/uL (1.3-7.7); Neutrophils % (A) 81 %; Platelet Count 365 k/uL (150-450); Poikilocytosis Marked; Prothrombin Time 29.2 sec (9.0-12.0); RBC 3.28 m/uL (4.30-5.90); RDW 16.6 % (11.5-15.5); Reticulocyte % 15.5 % (0.5-2.0); WBC 12.6 k/uL (3.8-10.6)
[2020-12-29 06:32] LABS: Albumin 3.1 g/dL (3.5-5.0); Calcium 8.4 mg/dL (8.4-10.2); Magnesium 2.6 mg/dL (1.6-2.3); Potassium 4.1 mmol/L (3.5-5.1); Total Bilirubin 6.5 mg/dL (0.2-1.3); Total Protein 5.9 g/dL (6.3-8.2)
[2020-12-29 07:11] LABS: Glucose,Whole Blood 125 mg/dL (75-99)
[2020-12-29] MEDS: INSULIN ASPART (NovoLOG) 100 UNIT/ML VIAL SQ SCH ×4 (07:11→21:57)
--- NOTE | 2020-12-29 07:47 | P.PN ---
Subjective Progress Note Date: 12/29/20 Principal diagnosis: Shortness of breath, bilateral pleural effusions, elevated LFTs. 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 Cartagena and Dr. Ellington sitting up in a recliner in the intensive care unit in no acute distress. He looks much better than yesterday, much more alert. He remained on BiPAP all night, currently on 4 L nasal cannula with oxygen saturation 100%. Denies any chest pain, states his shortness of breath has significantly improved. His only complaint is that his butt hurts from sitting in the recliner, informed PT/OT has been consulted to get him up and move, he said "Will see about that". Lab work reviewed, LFTs trending down, hepatitis panel negative, WBC trending down, INR 3.0. Urine output as low as 0, as high as 150 mL overnight, 1845 mL in the last 24 hours. Remains on oral Cardizem and Lopressor for heart rate control/A. fib, midodrine for blood pressure, and IV Lasix for diuresis. Plan is for thoracentesis once INR subtherapeutic. No new concerns. Objective - Vital Signs Vital signs: Vital Signs Temp 97.0 F L 12/29/20 04:00 Pulse 85 12/29/20 07:00 Resp 22 12/29/20 07:00 BP 102/70 12/29/20 07:00 Pulse Ox 99 12/29/20 07:00 Intake & Output 12/28/20 12/29/20 12/29/20 18:59 06:59 18:59 Intake Total 270 325 225 Output Total 1085 760 20 Balance -815 435 205 Weight 95 kg Intake: Oral 270 325 225 Output: Urine 1085 760 20 Other: Voiding Method Indwelling Catheter Indwelling Catheter # Voids 1 - Exam CONSTITUTIONAL: Appears comfortable, cooperative, no acute distress RESPIRATORY: Lungs sounds diminished bilaterally with crackles in the bases. Respirations even, nonlabored. Currently on oral liters nasal cannula with oxygen saturation 100%. Strong cough. CARDIOVASCULAR: S1, S2 present. Irregular rate and rhythm, controlled atrial fibrillation on telemetry. Sternum stable. Palpable peripheral pulses bilaterally. Trace generalized edema still present present. No calf pain or tenderness noted. Heart hugger in place with patient demonstrating appropriate use. Antiembolism stockings, SCDs present. GASTROINTESTINAL: Abdomen soft, nontender, nondistended. Active bowel sounds present 4 quadrants. Tolerating liquids. GENITOURINARY: Barrow present draining yellow urine. Output overnight 0-150 mL per hour, 1845 mL in the last 24 hours INTEGUMENTARY: Skin is warm and dry. Anterior chest incision well approximated. NEUROLOGIC: Cranial nerves II through XII intact MUSKULOSKELETAL: Able to move all extremities, strength equal bilaterally, generalized weakness PSYCHIATRIC: Alert and oriented to person place and time, appropriate affect, intact judgment and insight - Allied health notes Allied health notes reviewed: nursing - Labs CBC & Chem 7: 12/29/20 05:28 12/29/20 05:28 Labs: Abnormal Lab Results - Last 24 Hours (Table) 12/28/20 12/28/20 12/28/20 Range/Units 08:47 08:47 08:47 WBC 15.0 H (3.8-10.6) k/uL RBC 3.10 L (4.30-5.90) m/uL Hgb 9.7 L (13.0-17.5) gm/dL Hct 30.4 L (39.0-53.0) % RDW 16.7 H (11.5-15.5) % Neutrophils # 12.4 H (1.3-7.7) k/uL Retic Count (0.5-2.0) % PT 31.6 H (9.0-12.0) sec INR 3.3 H (<1.2) Sodium 131 L (137-145) mmol/L Carbon Dioxide 19 L (22-30) mmol/L BUN 62 H (9-20) mg/dL Creatinine 1.76 H (0.66-1.25) mg/dL Glucose 129 H (74-99) mg/dL POC Glucose (mg/dL) (75-99) mg/dL Calcium 8.3 L (8.4-10.2) mg/dL Magnesium (1.6-2.3) mg/dL Total Bilirubin 7.3 H (0.2-1.3) mg/dL AST 949 H (17-59) U/L ALT 881 H (4-49) U/L Alkaline Phosphatase 411 H (38-126) U/L Total Protein 6.2 L (6.3-8.2) g/dL Albumin (3.5-5.0) g/dL 12/28/20 12/28/20 12/28/20 Range/Units 11:08 18:14 20:44 WBC (3.8-10.6) k/uL RBC (4.30-5.90) m/uL Hgb (13.0-17.5) gm/dL Hct (39.0-53.0) % RDW (11.5-15.5) % Neutrophils # (1.3-7.7) k/uL Retic Count (0.5-2.0) % PT (9.0-12.0) sec INR (<1.2) Sodium (137-145) mmol/L Carbon Dioxide (22-30) mmol/L BUN (9-20) mg/dL Creatinine (0.66-1.25) mg/dL Glucose (74-99) mg/dL POC Glucose (mg/dL) 112 H 150 H 151 H (75-99) mg/dL Calcium (8.4-10.2) mg/dL Magnesium (1.6-2.3) mg/dL Total Bilirubin (0.2-1.3) mg/dL AST (17-59) U/L ALT (4-49) U/L Alkaline Phosphatase (38-126) U/L Total Protein (6.3-8.2) g/dL Albumin (3.5-5.0) g/dL 12/29/20 12/29/20 12/29/20 Range/Units 05:28 05:28 05:28 WBC 12.6 H (3.8-10.6) k/uL RBC 3.28 L (4.30-5.90) m/uL Hgb 10.0 L (13.0-17.5) gm/dL Hct 31.7 L (39.0-53.0) % RDW 16.6 H (11.5-15.5) % Neutrophils # 10.2 H (1.3-7.7) k/uL Retic Count 15.5 H (0.5-2.0) % PT 29.2 H (9.0-12.0) sec INR 3.0 H (<1.2) Sodium 132 L (137-145) mmol/L Carbon Dioxide 18 L (22-30) mmol/L BUN 65 H (9-20) mg/dL Creatinine 1.81 H (0.66-1.25) mg/dL Glucose 119 H (74-99) mg/dL POC Glucose (mg/dL) (75-99) mg/dL Calcium (8.4-10.2) mg/dL Magnesium 2.6 H (1.6-2.3) mg/dL Total Bilirubin 6.5 H (0.2-1.3) mg/dL AST 493 H (17-59) U/L ALT 663 H (4-49) U/L Alkaline Phosphatase 360 H (38-126) U/L Total Protein 5.9 L (6.3-8.2) g/dL Albumin 3.1 L (3.5-5.0) g/dL 12/29/20 Range/Units 07:00 WBC (3.8-10.6) k/uL RBC (4.30-5.90) m/uL Hgb (13.0-17.5) gm/dL Hct (39.0-53.0) % RDW (11.5-15.5) % Neutrophils # (1.3-7.7) k/uL Retic Count (0.5-2.0) % PT (9.0-12.0) sec INR (<1.2) Sodium (137-145) mmol/L Carbon Dioxide (22-30) mmol/L BUN (9-20) mg/dL Creatinine (0.66-1.25) mg/dL Glucose (74-99) mg/dL POC Glucose (mg/dL) 125 H (75-99) mg/dL Calcium (8.4-10.2) mg/dL Magnesium (1.6-2.3) mg/dL Total Bilirubin (0.2-1.3) mg/dL AST (17-59) U/L ALT (4-49) U/L Alkaline Phosphatase (38-126) U/L Total Protein (6.3-8.2) g/dL Albumin (3.5-5.0) g/dL - Imaging and Cardiology Chest x-ray: image reviewed Assessment and Plan Assessment: 1. Shortness of breath, improved 2. Elevated LFTs, likely from hepatic congestion secondary to heart failure, down trending 3. Coronary artery disease status post PCI to the LAD in 2005 and subsequent 4 vessel CABG on 12/16/2020 4. Previously preserved left ventricular function, mildly impaired left ventricular systolic function with EF 45-50% on current TTE 5. Chronic atrial fibrillation on Coumadin for anticoagulation with supr atherapeutic INR on admission, status post exclusion of the left atrial appendage 6. History of hypertension, currently on midodrine for hypotension 7. History of hyperlipidemia, treated 8. Diet controlled diabetes, recent hemoglobin A1c 6.2% 9. Obstructive sleep apnea on home CPAP, was not on at [facility] [place] 10. Previous pituitary tumor 11. Never smoker, preoperative FEV1 91% of predicted 12. Prior daily wine consumption 13. 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 Continue aspirin, beta junito therapy. Hold statin until liver enzymes returned to normal 2. Continue short acting Cardizem for atrial fibrillation. Continue to hold anticoagulation for now, will restart after thoracentesis 3. Wean O2 as tolerated. Encourage incentive spirometry is 10 times every hour while awake. Bronchodilators, BiPAP per pulmonology 4. Increase activity, ambulate as tolerated. PT/OT consulted 5. Will monitor daily labs and x-rays. Will give Vitamin K 2.5 mg IVP x 1, recheck INR at 13:00 6. Thoracentesis per pulmonology when safe, likely later this afternoon vs tomorrow 7. Continue diuresis with IV Lasix, decrease dose to daily 8. Continue sternal precautions 9. Medical management of other comorbidities per primary care service 10. More recommendations to follow Time with Patient: Greater than 30
[2020-12-29] MEDS ORDERED: DILTIAZEM CD 120 MG CAP.ER.24H PO SCH (08:00)
--- NOTE | 2020-12-29 08:11 | XR ---
EXAMINATION TYPE: XR chest 1V portable DATE OF EXAM: 12/29/2020 HISTORY: Shortness of breath. COMPARISON: 03/29/2020 TECHNIQUE: Single view of the chest is submitted. FINDINGS: Demonstrated are scattered senescent parenchymal change. Patchy perihilar and basilar infiltrates/atelectasis as well as pleural effusions persist without sig nificant interval change. The heart is stable. Hilar and mediastinal structures are within normal limits. Degenerative changes are seen of the dorsal spine. IMPRESSION: 1. Patchy perihilar and basilar infiltrates/atelectasis as well as pleural effusions persist without significant interval change.
[2020-12-29] MEDS ORDERED: PHYTONADIONE ORAL 5 MG/5 ML ORAL.SYRG PO STA (08:31)
[2020-12-29] MEDS ORDERED: PHYTONADIONE 2.5 MG in SODIUM CHLORIDE 0.9% 50 ML IVPB STA (08:33)
--- NOTE | 2020-12-29 08:35 | P.PN ---
Subjective Progress Note Date: 12/29/20 Principal diagnosis: Bilateral pleural effusion The patient is a pleasant 80-year-old gentleman with a past medical history significant for coronary artery disease and status post CABG as well as permanent atrial fibrillation as well as multiple comorbid conditions was admitted to the hospital with increasing shortness of breath and he was diagnosed with bilateral pleural effusion. He was started on Lasix. The patient was seen this morning. He was on BiPAP all night. His shortness of breath has improved. On examination he does have diminished breathing sounds bilaterally which seems to be slightly worse on the right side than the left side. He has no chest pain or chest discomfort. He is currently on Coumadin. The chest x-ray was reviewed and showed bilateral pleural effusion seems to be worse on the right than the left. He is in process of having bilateral pleurocentesis in the next 24 hours 1 the INR comes down. The echo showed mildly impaired only function was EF around 45% Objective - Vital Signs Vital signs: Vital Signs Temp 97.0 F L 12/29/20 04:00 Pulse 85 12/29/20 07:00 Resp 22 12/29/20 07:00 BP 102/70 12/29/20 07:00 Pulse Ox 99 12/29/20 07:00 Intake & Output 12/28/20 12/29/20 12/29/20 18:59 06:59 18:59 Intake Total 270 325 225 Output Total 1085 760 20 Balance -815 -435 205 Weight 95 kg Intake: Oral 270 325 225 Output: Urine 1085 760 20 Other: Voiding Method Indwelling Catheter Indwelling Catheter # Voids 1 - Constitutional General appearance: Present: no acute distress - Respiratory Respiratory: bilateral: diminished - Cardiovascular Rhythm: irregularly irregular - Labs CBC & Chem 7: 12/29/20 05:28 12/29/20 05:28 Labs: Abnormal Lab Results - Last 24 Hours (Table) 12/28/20 12/28/20 12/28/20 Range/Units 08:47 08:47 08:47 WBC 15.0 H (3.8-10.6) k/uL RBC 3.10 L (4.30-5.90) m/uL Hgb 9.7 L (13.0-17.5) gm/dL Hct 30.4 L (39.0-53.0) % RDW 16.7 H (11.5-15.5) % Neutrophils # 12.4 H (1.3-7.7) k/uL Retic Count (0.5-2.0) % PT 31.6 H (9.0-12.0) sec INR 3.3 H (<1.2) Sodium 131 L (137-145) mmol/L Carbon Dioxide 19 L (22-30) mmol/L BUN 62 H (9-20) mg/dL Creatinine 1.76 H (0.66-1.25) mg/dL Glucose 129 H (74-99) mg/dL POC Glucose (mg/dL) (75-99) mg/dL Calcium 8.3 L (8.4-10.2) mg/dL Magnesium (1.6-2.3) mg/dL Total Bilirubin 7.3 H (0.2-1.3) mg/dL AST 949 H (17-59) U/L ALT 881 H (4-49) U/L Alkaline Phosphatase 411 H (38-126) U/L Total Protein 6.2 L (6.3-8.2) g/dL Albumin (3.5-5.0) g/dL 12/28/20 12/28/20 12/28/20 Range/Units 11:08 18:14 20:44 WBC (3.8-10.6) k/uL RBC (4.30-5.90) m/uL Hgb (13.0-17.5) gm/dL Hct (39.0-53.0) % RDW (11.5-15.5) % Neutrophils # (1.3-7.7) k/uL Retic Count (0.5-2.0) % PT (9.0-12.0) sec INR (<1.2) Sodium (137-145) mmol/L Carbon Dioxide (22-30) mmol/L BUN (9-20) mg/dL Creatinine (0.66-1.25) mg/dL Glucose (74-99) mg/dL POC Glucose (mg/dL) 112 H 150 H 151 H (75-99) mg/dL Calcium (8.4-10.2) mg/dL Magnesium (1.6-2.3) mg/dL Total Bilirubin (0.2-1.3) mg/dL AST (17-59) U/L ALT (4-49) U/L Alkaline Phosphatase (38-126) U/L Total Protein (6.3-8.2) g/dL Albumin (3.5-5.0) g/dL 12/29/20 12/29/20 12/29/20 Range/Units 05:28 05:28 05:28 WBC 12.6 H (3.8-10.6) k/uL RBC 3.28 L (4.30-5.90) m/uL Hgb 10.0 L (13.0-17.5) gm/dL Hct 31.7 L (39.0-53.0) % RDW 16.6 H (11.5-15.5) % Neutrophils # 10.2 H (1.3-7.7) k/uL Retic Count 15.5 H (0.5-2.0) % PT 29.2 H (9.0-12.0) sec INR 3.0 H (<1.2) Sodium 132 L (137-145) mmol/L Carbon Dioxide 18 L (22-30) mmol/L BUN 65 H (9-20) mg/dL Creatinine 1.81 H (0.66-1.25) mg/dL Glucose 119 H (74-99) mg/dL POC Glucose (mg/dL) (75-99) mg/dL Calcium (8.4-10.2) mg/dL Magnesium 2.6 H (1.6-2.3) mg/dL Total Bilirubin 6.5 H (0.2-1.3) mg/dL AST 493 H (17-59) U/L ALT 663 H (4-49) U/L Alkaline Phosphatase 360 H (38-126) U/L Total Protein 5.9 L (6.3-8.2) g/dL Albumin 3.1 L (3.5-5.0) g/dL 12/29/20 Range/Units 07:00 WBC (3.8-10.6) k/uL RBC (4.30-5.90) m/uL Hgb (13.0-17.5) gm/dL Hct (39.0-53.0) % RDW (11.5-15.5) % Neutrophils # (1.3-7.7) k/uL Retic Count (0.5-2.0) % PT (9.0-12.0) sec INR (<1.2) Sodium (137-145) mmol/L Carbon Dioxide (22-30) mmol/L BUN (9-20) mg/dL Creatinine (0.66-1.25) mg/dL Glucose (74-99) mg/dL POC Glucose (mg/dL) 125 H (75-99) mg/dL Calcium (8.4-10.2) mg/dL Magnesium (1.6-2.3) mg/dL Total Bilirubin (0.2-1.3) mg/dL AST (17-59) U/L ALT (4-49) U/L Alkaline Phosphatase (38-126) U/L Total Protein (6.3-8.2) g/dL Albumin (3.5-5.0) g/dL Assessment and Plan Assessment: Assessment #1 coronary artery disease and status post CABG #2 bilateral pleural effusion #3 mild cardiomyopathy #4 permanent atrial fibrillation #5 multiple comorbid conditions Plan #1 decrease the dose of Lasix #2 continue monitor the kidney function and electrolytes #3 hold the Coumadin #4 pleurocentesis bilaterally in the next 24 hours #5 follow-up with the patient
--- NOTE | 2020-12-29 08:35 | P.PN ---
Subjective Progress Note Date: 12/29/20 80-year-old male patient being seen in follow-up on 12/29/2020. He was hospitalized yesterday for acute hypoxic respiratory failure, shortness of breath, fluid overload. The patient is post four-vessel bypass surgery and the patient was discharged from the hospital on 12/25/2012 after a nonsmoker for to damien of 11 days. He has history of atrial fibrillation, diabetes mellitus, hypertension and hyperlipidemia and BPH. The patient had some issues with generalized weakness and debility postop. He continued to have some degree of shortness of breath with interval worsening. He came into the emergency department and was quite tachypneic and short of breath. He was transferred to the intensive care unit and he was off her diuretics and BiPAP therapy for restorative support. His BUN was at 62 with a creatinine of 1.7 and his chest x-ray showed cardiomegaly and bilateral pleural effusion. She was started on diuretics. The patient has chronic atrial fibrillation the patient was also discharged home on Lasix. The patient had a lactic acid level of 2.1 which dropped subsequently to 1.7. LFTs are normal with an elevated AST and ALT, improving and the troponin was 0.144 and 0.1. Respectively 2. Lipase level was 468. ProBNP level was 5370. COVID-19 testing was negative. Initial sodium level was 128. Creatinine was 1.68. INR was at 5.6 with a PT of 54 while the patient on Coumadin. Coumadin was maintained on hold.Echocardiogram showed a moderate concentric LVH in addition to mildly impaired left a ejection fraction of around 45-50%. No significant valvular abnormalities. No significant pulmonary hypertension. On today's evaluation, the patient seems to be a bit more alert and awake compared to yesterday. His at 12.6. Creatinine is still impaired with a creatinine of 1.8. The patient is receiving Lasix 40 mg IV every 8 hours. Her net fluid balance over the past 24 hours is -1.2 L. Chest x-ray from today still showing bilateral pleural effusions and MARKING OF THE PLEURAL EFFUSION HAS ALREADY BEEN DONE. THERE IS ALSO PATCHY PERIHILAR AND BASILAR ATELECTATIC CHANGES WITHOUT ANY MAJOR INTERVAL CHANGE COMPARED TO YESTERDAY. CARDIAC RHYTHM REMAINS IRREGULAR CONSISTENT WITH ATRIAL FIBRILLATION. The patient also has an INR of 3.0, slightly improved compared to yesterday. Objective - Vital Signs Vital signs: Vital Signs Temp 97.0 F L 12/29/20 04:00 Pulse 85 12/29/20 07:00 Resp 22 12/29/20 07:00 BP 102/70 12/29/20 07:00 Pulse Ox 99 12/29/20 07:00 Intake & Output 12/28/20 12/29/20 12/29/20 18:59 06:59 18:59 Intake Total 270 325 225 Output Total 1085 760 20 Balance -815 -435 205 Weight 95 kg Intake: Oral 270 325 225 Output: Urine 1085 760 20 Other: Voiding Method Indwelling Catheter Indwelling Catheter # Voids 1 - Exam Mild respiratory distress with increased respiratory rate, oriented 3. Saturations are in the mid 90s on 4 L nasal cannula. HEENT examination is grossly unremarkable. Neck supple. Full range of motion. No adenopathy thyromegaly or neck vein di stention. Cardiovascular examination reveals irregular rhythm rate. S1-S2 normal. No S3 or S4. No discernible murmur noted. The rhythm is irregular consistent with atrial fibrillation. There is also systolic ejection murmur grade 2/6 heard throughout the precordium. Lungs reveal diffuse bibasilar crackles. There is dullness at the bases. Scattered moderate rhonchi are noted. No wheezes appreciated. Abdomen soft bowel sounds are heard. No masses or tenderness. Extremities are intact. No cyanosis or clubbing. 1+ edema is noted. Skin is without rash or lesion. Neurologic examination is brief but nonfocal. - Labs CBC & Chem 7: 12/29/20 05:28 12/29/20 05:28 Labs: Abnormal Lab Results - Last 24 Hours (Table) 12/28/20 12/28/20 12/28/20 Range/Units 08:47 08:47 08:47 WBC 15.0 H (3.8-10.6) k/uL RBC 3.10 L (4.30-5.90) m/uL Hgb 9.7 L (13.0-17.5) gm/dL Hct 30.4 L (39.0-53.0) % RDW 16.7 H (11.5-15.5) % Neutrophils # 12.4 H (1.3-7.7) k/uL Retic Count (0.5-2.0) % PT 31.6 H (9.0-12.0) sec INR 3.3 H (<1.2) Sodium 131 L (137-145) mmol/L Carbon Dioxide 19 L (22-30) mmol/L BUN 62 H (9-20) mg/dL Creatinine 1.76 H (0.66-1.25) mg/dL Glucose 129 H (74-99) mg/dL POC Glucose (mg/dL) (75-99) mg/dL Calcium 8.3 L (8.4-10.2) mg/dL Magnesium (1.6-2.3) mg/dL Total Bilirubin 7.3 H (0.2-1.3) mg/dL AST 949 H (17-59) U/L ALT 881 H (4-49) U/L Alkaline Phosphatase 411 H (38-126) U/L Total Protein 6.2 L (6.3-8.2) g/dL Albumin (3.5-5.0) g/dL 12/28/20 12/28/20 12/28/20 Range/Units 11:08 18:14 20:44 WBC (3.8-10.6) k/uL RBC (4.30-5.90) m/uL Hgb (13.0-17.5) gm/dL Hct (39.0-53.0) % RDW (11.5-15.5) % Neutrophils # (1.3-7.7) k/uL Retic Count (0.5-2.0) % PT (9.0-12.0) sec INR (<1.2) Sodium (137-145) mmol/L Carbon Dioxide (22-30) mmol/L BUN (9-20) mg/dL Creatinine (0.66-1.25) mg/dL Glucose (74-99) mg/dL POC Glucose (mg/dL) 112 H 150 H 151 H (75-99) mg/dL Calcium (8.4-10.2) mg/dL Magnesium (1.6-2.3) mg/dL Total Bilirubin (0.2-1.3) mg/dL AST (17-59) U/L ALT (4-49) U/L Alkaline Phosphatase (38-126) U/L Total Protein (6.3-8.2) g/dL Albumin (3.5-5.0) g/dL 12/29/20 12/29/20 12/29/20 Range/Units 05:28 05:28 05:28 WBC 12.6 H (3.8-10.6) k/uL RBC 3.28 L (4.30-5.90) m/uL Hgb 10.0 L (13.0-17.5) gm/dL Hct 31.7 L (39.0-53.0) % RDW 16.6 H (11.5-15.5) % Neutrophils # 10.2 H (1.3-7.7) k/uL Retic Count 15.5 H (0.5-2.0) % PT 29.2 H (9.0-12.0) sec INR 3.0 H (<1.2) Sodium 132 L (137-145) mmol/L Carbon Dioxide 18 L (22-30) mmol/L BUN 65 H (9-20) mg/dL Creatinine 1.81 H (0.66-1.25) mg/dL Glucose 119 H (74-99) mg/dL POC Glucose (mg/dL) (75-99) mg/dL Calcium (8.4-10.2) mg/dL Magnesium 2.6 H (1.6-2.3) mg/dL Total Bilirubin 6.5 H (0.2-1.3) mg/dL AST 493 H (17-59) U/L ALT 663 H (4-49) U/L Alkaline Phosphatase 360 H (38-126) U/L Total Protein 5.9 L (6.3-8.2) g/dL Albumin 3.1 L (3.5-5.0) g/dL 12/29/20 Range/Units 07:00 WBC (3.8-10.6) k/uL RBC (4.30-5.90) m/uL Hgb (13.0-17.5) gm/dL Hct (39.0-53.0) % RDW (11.5-15.5) % Neutrophils # (1.3-7.7) k/uL Retic Count (0.5-2.0) % PT (9.0-12.0) sec INR (<1.2) Sodium (137-145) mmol/L Carbon Dioxide (22-30) mmol/L BUN (9-20) mg/dL Creatinine (0.66-1.25) mg/dL Glucose (74-99) mg/dL POC Glucose (mg/dL) 125 H (75-99) mg/dL Calcium (8.4-10.2) mg/dL Magnesium (1.6-2.3) mg/dL Total Bilirubin (0.2-1.3) mg/dL AST (17-59) U/L ALT (4-49) U/L Alkaline Phosphatase (38-126) U/L Total Protein (6.3-8.2) g/dL Albumin (3.5-5.0) g/dL Assessment and Plan Plan: 1 Acute hypoxemic respiratory failure, likely on the basis of fluid overload/pleural effusions. 2 CAD and the patient is post four-vessel bypass grafting, with discharged from the hospital on December 25. Patient had an 11 day hospital stay. [place] rdiogram showed a moderate concentric LVH in addition to mildly impaired left a ejection fraction of around 45-50%. No significant valvular abnormalities. No significant pulmonary hypertension. 3 History of atrial fibrillation. The patient had a supratherapeutic INR at time of admission, no bleeding and INR is improving and is down. Rate is controlled with a combination of Cardizem and metoprolol. 4 History of diabetes mellitus. 5 Hyperlipidemia. 6 Hypertension. 7 BPH 8 acute kidney injury 9 acute transaminitis secondary to above, LFTs elevated, and a declining course 10 nonspecific elevation of the lipase, consider pancreatitis 11 hyponatremia, improving Plan: The patient 2.5 mg of vitamin K Repeat INR today We'll try to get the patient is thoracentesis once INR is under 2 Continue using incentive spirometer Drop the Lasix to 40 mg every 24 hours Monitor renal function and creatinine is at 1.8 which is stable Clinically more alert compared to yesterday. Will involve physical therapy Keep Barrow catheter in place Rate control regarding his atrial fibrillation with a combination of Cardizem by mouth 30 mg every 6 hours and metoprolol 50 mg by mouth twice a day We'll continue to follow Time with Patient: Greater than 30
[2020-12-29] MEDS: IPRATROPIUM-ALBUTEROL 3 ML NEB INHALATION SCH ×4 (08:36→19:43)
[2020-12-29] MEDS ORDERED: FUROSEMIDE 10 MG/ML 4 ML VIAL IV SCH (09:00)
[2020-12-29] MEDS: METOPROLOL TARTRATE 50 MG TAB PO SCH ×2 (10:31→21:57)
[2020-12-29] MEDS: TAMSULOSIN 0.4 MG CAP.ER.24H PO SCH (10:31)
[2020-12-29 11:42] LABS: Glucose,Whole Blood 109 mg/dL (75-99)
[2020-12-29] MEDS ORDERED: traMADol 50 MG TAB PO PRN (12:46)
[2020-12-29 13:22] LABS: Haptoglobin 35.9 mg/dL (31.2-198.0)
--- NOTE | 2020-12-29 13:29 | P.PN ---
Subjective Progress Note Date: 12/29/20 HISTORY OF PRESENT ILLNESS This is a 80-year-old male patient of Dr. Campos and Dr. Mullins with past medical history of chronic persistent atrial fibrillation, diabetes mellitus type 2, hypertension, hyperlipidemia, history of pituitary tumor resection, obstructive sleep apnea on BiPAP, gastroesophageal reflux disease, benign prostatic hypertrophy. He should also has history of coronary artery disease status post PCI to the LAD in 2005, heart catheterization in October 2020 found severe triple-vessel disease, subsequently admitted to the hospital for elective coronary artery bypass grafting 12/16 for four-vessel bypass MORAN to LAD, left radial artery from the aorta to the first obtuse marginal artery, reverse saphenous vein graft from the aorta to the second diagonal artery, reverse saphenous vein graft from the aorta to the posterior descending artery, endoscopic harvesting of the left radial artery, endoscopic harvesting of the left greater saphenous vein from ankle to the groin, exclusion of the left atrial appendage. During his last admission, he remained in ICU,Until December 24,, and after he was transferred to [facility] for cardiac recovery program. He has chronic atrial fibrillation, diabetes mellitus type 2, hypertension, hyperlipidemia, history of pituitary gland resection, obstructive sleep apnea, BPH with urinary retention, and delirium.. At the time of discharge, he was on Coumadin and Singulair Cardizem CD lisinopril Tylenol, he was taken off atenolol Vytorin lisinopril Imdur aspirin and nitro. -He comes back to the emergency room 2 days later, from [facility], secondary to shortness of breath, and edema. She also has worsening of her liver issues, with no visible jaundice. On ER presentation, he has indwelling Barrow catheter, there is no fever, no focal deficit, chest pain, he has shortness of breath, no vomiting, no diarrhea, no melena. In the emergency room, EKG shows atrial fibrillation heart rate of 79, no significant change compared to 927 EKG, double basic count is 15, hemoglobin of 9, sodium of 131, BUN 62 creatinine 4.7, CO2 of 19 total bili of 7.3, AST 949 ALT 881, alkaline phosphatase 411, troponin is stagnant at 0.14, and 0.148. Lactic acid level was 2.1, INR is 3.3 ultrasound of the gallbladder, shows common bile duct is normal, liver is enlarged, otherwise no other pathologies noted. Chest x-ray shows bilateral pleural effusion, basilar pulmonary infiltrates, which slightly is worse compared to previous, mild heart failure is possible, cardiomegaly some change patient is admitted to ICU with consultation to critical care medicine Dr. Vásquez, and cardiology. Chest ultrasound is ordered CMV and hepatitis panels ordered, patient would need a CAT scan of the abdomen, to eval for spleen gallbladder, Tylenol is discontinued, Lipitor is discontinued check for haptoglobin, reticulocyte count, and iron studies to evaluate portal system. 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 INR is 3. Sodium 132, potassium 4.1, chloride 100, CO2 18, BUN 65 and creatinine 1.81, blood sugar 119. Total bilirubin 6.5, AST 493, ALT 663, alkaline phosphatase 360. INR is 3.0. Magnesium 2.6. Lipase 473. CMV nonreactive 2 draws. Hepatitis panel negative. Repeat chest x-ray reveals patchy perihilar and basilar infiltrates/atelectasis as well as pleural effusions persist without significant interval change. Dr. Cartagena has ordered for vitamin K 2.5 mg and repeat INR with plan for thoracentesis once INR is und er 2. Patient is also followed by cardiology and Lasix decreased to 40 mg IV daily. Echocardiogram reveals EF of 45-60% with moderate concentric left hypertrophy, LA is severely dilated, mild to moderate mitral regurgitation, mild tricuspid regurgitation. Patient denies having any shortness of breath at rest. He denies abdominal pain, no nausea. He has had good urine output around 35 mL per hour. REVIEW OF SYSTEMS Constitutional: No fever, no chills, no night sweats. No weight change. No weakness, fatigue or lethargy. No daytime sleepiness. EENT: No headache. No blurred vision or double vision, no loss of vision. No loss of Hearing, no ringing in the ears, no dizziness. No nasal drainage or congestion. No epistaxis. No sore throat. Lungs: No shortness of breath, cough, no sputum production. No wheezing. Cardiovascular: No chest pain, no lower extremity edema. No palpitations. No paroxysmal nocturnal dyspnea. No orthopnea. No lightheadedness or dizziness. No syncopal episodes. Abdominal: No abdominal pain. No nausea, vomiting. No diarrhea. No constipation. No bloody or tarry stools.. No loss of appetite. Genitourinary: No dysuria, increased frequency, urgency. No urinary retention. Musculoskeletal: No myalgias. No muscle weakness, no gait dysfunction, no frequent falls. No back pain. No neck pain. Integumentary: No wounds, no lesions. No rash or pruritus. No unusual bruising. No change in hair or nails. Neurologic: No aphasia. No facial droop. No change in mentation. No head injury. No headache. No paralysis. No paresthesia. Psychiatric: No depression. No anxiety. No mood swings. Endocrine: No abnormal blood sugars. No weight change. No excessive sweating or thirst. No cold intolerance. PHYSICAL EXAMINATION Gen: This is a 80-year-old male. He sitting in a recliner in the intensive care unit. He appears to be in no acute distress. HEENT: Head is atraumatic, normocephalic. Pupils equal, round. Sclerae is anicteric. Patient is severely hard of hearing NECK: Supple. No JVD. No lymphadenopathy. No thyromegaly. LUNGS: Diminished to the bilateral basis. No intercostal retractions. HEART: Irregular rate and rhythm. No murmur. ABDOMEN: Soft. Bowel sounds are present. No masses. No tenderness. Barrow catheter draining holly urine. EXTREMITIES: No pedal edema. No calf tenderness. NEUROLOGICAL: Patient is awake, alert and oriented x3. Cranial nerves 2 through 12 are grossly intact. ASSESSMENT AND PLAN 1. Significant pulmonary edema, chf pulm edema with bilateral pleural effusion, thoracic ultrasound showing 12 cm pocket on the right, tense in the pocket in the left worse than previous, patient is going to undergo thoracentes is, possible bilateral, Lasix was decreased to 40 mg IV daily, monitor I&O and daily weights, monitor renal function and electrolytes. 2. Severe coagulopathy, on Coumadin, with worsening of transaminitis, with jaundice, suspect hepatobiliary obstruction, however, and bile duct is normal, Lipitor and Tylenol was discontinued and held, Coumadin on hold. No GI consultation is available, till January 12, monitor liver function tests. INR to be monitored daily. Patient is status post vitamin K. 3. Acute kidney injury. Consult added for nephrology. Avoid nephrotoxic agents. 4. Metabolic acidosis secondary to acute kidney injury. 5. Coronary artery disease status post 4 vessel CABG 12/16. Continue current management per cardio thoracic surgery. Continue aspirin 81 mg daily, Lipitor on hold, Lopressor 50 mg twice daily 6. Chronic persistent atrial fibrillation. Continue Lopressor, Cardizem 30 mg every 6 hours. Coumadin is on hold. 7. Acute hypoxemic respiratory failure, patient's on BiPAP supplementatio, followed closely by critical care medicine and pulmonary 8. Diabetes mellitus type 2. Continue with NovoLog scale before meals and at bedtime, blood sugar is controlled. 9. Hypertension. Continue Lopressor. 10. Hyperlipidemia. Hold Lipitor. 11. Urinary retention. Maintain Barrow catheter, continue Flomax or 0.5 mg daily. 12. History of pituitary gland resection. 13 Obstructive sleep apnea on BiPAP. 14. Gastroesophageal reflux disease. 15. DVT prophylaxis. HA hose. 16. GI prophylaxis. Protonix. DISCHARGE PLAN Most likely return to [facility] for subacute rehab. Impression and plan of care have been directed as dictated by the signing physician. Erica Alfredo nurse practitioner acting as scribe for signing lalitha siddiqui. Objective - Vital Signs Vital signs: Vital Signs Temp 98.1 F 12/29/20 08:00 Pulse 81 12/29/20 09:00 Resp 16 12/29/20 09:00 BP 105/64 12/29/20 09:00 Pulse Ox 100 12/29/20 09:00 Intake & Output 12/28/20 12/29/20 12/29/20 18:59 06:59 18:59 Intake Total 270 325 225 Output Total 1085 760 120 Balance -815 -435 105 Weight 95 kg Intake: Oral 270 325 225 Output: Urine 1085 760 120 Other: Voiding Method Indwelling Catheter Indwelling Catheter Indwelling Catheter # Voids 1 - Labs CBC & Chem 7: 12/29/20 05:28 12/29/20 05:28 Labs: Abnormal Lab Results - Last 24 Hours (Table) 12/28/20 12/28/20 12/28/20 Range/Units 11:08 18:14 20:44 WBC (3.8-10.6) k/uL RBC (4.30-5.90) m/uL Hgb (13.0-17.5) gm/dL Hct (39.0-53.0) % RDW (11.5-15.5) % Neutrophils # (1.3-7.7) k/uL Retic Count (0.5-2.0) % PT (9.0-12.0) sec INR (<1.2) Sodium (137-145) mmol/L Carbon Dioxide (22-30) mmol/L BUN (9-20) mg/dL Creatinine (0.66-1.25) mg/dL Glucose (74-99) mg/dL POC Glucose (mg/dL) 112 H 150 H 151 H (75-99) mg/dL Magnesium (1.6-2.3) mg/dL Total Bilirubin (0.2-1.3) mg/dL AST (17-59) U/L ALT (4-49) U/L Alkaline Phosphatase (38-126) U/L Total Protein (6.3-8.2) g/dL Albumin (3.5-5.0) g/dL 12/29/20 12/29/20 12/29/20 Range/Units 05:28 05:28 05:28 WBC 12.6 H (3.8-10.6) k/uL RBC 3.28 L (4.30-5.90) m/uL Hgb 10.0 L (13.0-17.5) gm/dL Hct 31.7 L (39.0-53.0) % RDW 16.6 H (11.5-15.5) % Neutrophils # 10.2 H (1.3-7.7) k/uL Retic Count 15.5 H (0.5-2.0) % PT 29.2 H (9.0-12.0) sec INR 3.0 H (<1.2) Sodium 132 L (137-145) mmol/L Carbon Dioxide 18 L (22-30) mmol/L BUN 65 H (9-20) mg/dL Creatinine 1.81 H (0.66-1.25) mg/dL Glucose 119 H (74-99) mg/dL POC Glucose (mg/dL) (75-99) mg/dL Magnesium 2.6 H (1.6-2.3) mg/dL Total Bilirubin 6.5 H (0.2-1.3) mg/dL AST 493 H (17-59) U/L ALT 663 H (4-49) U/L Alkaline Phosphatase 360 H (38-126) U/L Total Protein 5.9 L (6.3-8.2) g/dL Albumin 3.1 L (3.5-5.0) g/dL 12/29/20 Range/Units 07:00 WBC (3.8-10.6) k/uL RBC (4.30-5.90) m/uL Hgb (13.0-17.5) gm/dL Hct (39.0-53.0) % RDW (11.5-15.5) % Neutrophils # (1.3-7.7) k/uL Retic Count (0.5-2.0) % PT (9.0-12.0) sec INR (<1.2) Sodium (137-145) mmol/L Carbon Dioxide (22-30) mmol/L BUN (9-20) mg/dL Creatinine (0.66-1.25) mg/dL Glucose (74-99) mg/dL POC Glucose (mg/dL) 125 H (75-99) mg/dL Magnesium (1.6-2.3) mg/dL Total Bilirubin (0.2-1.3) mg/dL AST (17-59) U/L ALT (4-49) U/L Alkaline Phosphatase (38-126) U/L Total Protein (6.3-8.2) g/dL Albumin (3.5-5.0) g/dL
[2020-12-29] MEDS: MIDODRINE 5 MG TAB PO SCH ×2 (13:33→18:56)
[2020-12-29 13:54] LABS: INR 2.8 (<1.2); Prothrombin Time 27.2 sec (9.0-12.0)
[2020-12-29] MEDS: LIDOCAINE 5% PATCH TOPICAL SCH (16:36)
--- NOTE | 2020-12-29 16:50 | CONS ---
CONSULTATION The patient is seen for renal failure. HISTORY OF PRESENT ILLNESS: Patient is a 80-year-old male who was admitted to the hospital on 12/27/2020 with complaints of weakness and shortness of breath. He was initially on a medical floor and then transferred to the ICU for worsening shortness of breath. He required BiPAP. The patient has a history of benign prostatic hypertrophy. He is status post coronary artery bypass surgery on 12/16/2020. The patient's blood pressures were not significantly low. He states he has been voiding. He was at [facility] for just about 2 days after discharge from the hospital. The chest x-ray shows pleural effusions and is scheduled for right thoracentesis today. Patient's liver enzymes were significantly elevated with AST and ALT in the 1000 range currently decreasing. He had been on statins which are currently on hold. Serum creatinine was 1.68 on initial admission, increased to 1.8. Prior creatinine 1.14 on 12/25/2020 prior to discharge. PAST MEDICAL HISTORY: Coronary artery disease, recent coronary artery bypass surgery, hypertension, atrial fibrillation, type 2 diabetes, BPH, hyperlipidemia. PAST SURGICAL HISTORY: Coronary artery bypass surgery, cardiac catheterization, coronary stent, history of removal of pituitary tumor, PCI and coronary stent placement. SOCIAL HISTORY: Negative for smoking, drug abuse or alcohol abuse. MEDICATIONS: Medications prior to admission included vitamin C, vitamin D, calcium, Coumadin, Nexium, diltiazem, Zestril, Singulair, Lipitor, insulin, midodrine, Lopressor, Flomax, Dulcolax. ALLERGIES: None. REVIEW OF SYSTEMS: As per HPI. Other systems negative. EXAMINATION: Currently comfortable, awake, he is not in any acute distress. Alert and oriented x3, mildly short of breath. Blood pressure 96/62, heart rate 82 per minute. He is afebrile. Examination of the heart S1, S2. Examination of the lungs, bilateral breath sounds are heard. Decreased breath sounds at bases, particularly right side. Examination of lower extremities shows edema 1+ bilaterally. Abdomen is soft, nontender, distended. FENCE POST CUTTER exam grossly intact. LAB: Show sodium 132, potassium 4.1, chloride 100, CO2 is 18, BUN 65, creatinine 1.8. Lipase is is 473. ALT down to 663 and AST down to 493. UA is not available. Hemoglobin was 10.0 g/dL. ASSESSMENT: 1. Acute kidney injury secondary to hypotension and hypoperfusion. Systolic blood pressure as low as 70s on 12/28/2020. Currently maintained on midodrine. Agree with increasing the midodrine. I would avoid IV hydration given his volume overload. Continue with the IV Lasix for now. Consider decreasing Lopressor as long as heart rate remains controlled. 2. Mild metabolic acidosis secondary to renal failure. 3. Hypotension. Check random cortisol level. 4. Significantly elevated liver enzymes and hyperbilirubinemia, possibly related to statins, currently on hold. Also, most likely secondary to shock liver with hypotension and hypoperfusion. 5. Status post recent coronary artery bypass surgery. 6. Volume overload. PLAN: Continue to diurese patient. Hold off on MAURA inhibitors. Agree with increasing midodrine. Check cortisol level and repeat labs in a.m. check accurate I's and O's. Avoid any nephrotoxic agents. Thank you for this consultation. We will continue to follow the patient with you during his hospitalization. KRZYSZTOF / SHWETHAN: [id number] /
[2020-12-29] MEDS: ASPIRIN 81 MG PO SCH (18:56)
[2020-12-29] MEDS: CALCIUM CARBONATE 500 MG CHEWABLE PO SCH (18:56)
[2020-12-29] MEDS: ASCORBIC ACID 500 MG TAB PO SCH (18:56)
[2020-12-29] MEDS: CHOLECALCIFEROL 25 MCG (1000 IU) TABLET PO SCH (18:56)
[2020-12-29 21:22] LABS: Glucose,Whole Blood 127 mg/dL (75-99)
[2020-12-29] MEDS: LATANOPROST 0.005% OPHTH DROPS 2.5 ML BTL BOTH EYES SCH (21:57)
[2020-12-29] MEDS: MONTELUKAST 10 MG TAB PO SCH (21:57)
[2020-12-30] MEDS: DILTIAZEM ORAL 30 MG TAB PO SCH ×3 (00:18→17:12)
[2020-12-30 05:08] LABS: Anisocytosis Slight; Basophils % (A) 0 %; Eosinophils # (A) 0.1 k/uL (0-0.7); Eosinophils % (A) 1 %; HCT 32.5 % (39.0-53.0); HGB 9.9 gm/dL (13.0-17.5); Hypochromasia Marked; Lymphocytes % (A) 9 %; MCHC 30.6 g/dL (31.0-37.0); MCV 97.9 fL (80.0-100.0); Macrocytosis Slight; Mean Platelet Volume 7.7; Monocytes % (A) 8 %; Neutrophils # (A) 9.9 k/uL (1.3-7.7); Neutrophils % (A) 81 %; Platelet Count 312 k/uL (150-450); Poikilocytosis Moderate; RBC 3.32 m/uL (4.30-5.90); RDW 16.1 % (11.5-15.5); WBC 12.2 k/uL (3.8-10.6)
[2020-12-30 05:24] LABS: INR 1.9 (<1.2)
[2020-12-30 05:25] LABS: Prothrombin Time 18.4 sec (9.0-12.0)
[2020-12-30 05:35] LABS: Albumin 3.1 g/dL (3.5-5.0); Calcium 8.3 mg/dL (8.4-10.2); Magnesium 2.8 mg/dL (1.6-2.3); Potassium 4.7 mmol/L (3.5-5.1); Total Protein 5.9 g/dL (6.3-8.2)
[2020-12-30] MEDS: PANTOPRAZOLE 40 MG TABLET PO SCH (06:34)
[2020-12-30] MEDS: IPRATROPIUM-ALBUTEROL 3 ML NEB INHALATION SCH ×5 (08:07→21:23)
--- NOTE | 2020-12-30 08:07 | P.PN ---
Subjective Progress Note Date: 12/30/20 Principal diagnosis: Shortness of breath, bilateral pleural effusions, elevated LFTs, YVETTE. Previous medical history of coronary artery disease status post PCI to the LAD in 2005 a nd subsequent 4 vessel CABG on 12/16/2020, previously preserved left ventricular function, chronic atrial fibrillation on Coumadin for anticoagulation with supratherapeutic INR on admission, status post exclusion of the left atrial appendage, hypertension, hyperlipidemia, diet controlled diabetes, obstructive sleep apnea on home CPAP, previous pituitary tumor, never smoker, prior daily wine consumption, BPH with urinary retention after surgery requiring reinsertion of Barrow catheter The patient was seen and examined this morning sitting up in a recliner in the intensive care unit in no acute distress eating fruit. He continues to look better daily, much more alert. He remained on BiPAP all night, currently on 2 L nasal cannula with oxygen saturation 99%. Denies any chest pain, states his shortness of breath has significantly improved. Continually asking for diet pepsi and large glass of water. Lab work reviewed, LFTs trending down, INR 1.9, received Vitamin K yesterday. Urine output 30-45 mL overnight, 1890 mL in the last 24 hours. Remains on oral Cardizem and Lopressor for heart rate control/A. fib, midodrine for blood pressure, and IV Lasix for diuresis. Plan is for thora centesis today. No new concerns. Objective - Vital Signs Vital signs: Vital Signs Temp 96.8 F L 12/30/20 04:00 Pulse 80 12/30/20 07:00 Resp 16 12/30/20 07:00 BP 103/67 12/30/20 07:00 Pulse Ox 100 12/30/20 07:00 Intake & Output 12/29/20 12/30/20 12/30/20 18:59 06:59 18:59 Intake Total 225 420 220 Output Total 1320 525 45 Balance -1095 -105 175 Weight 94.9 kg Intake: Oral 225 420 220 Output: Urine 1320 525 45 Other: Voiding Method Indwelling Catheter Indwelling Catheter - Exam CONSTITUTIONAL: Appears comfortable, cooperative, no acute distress RESPIRATORY: Lungs sounds diminished bilaterally in the bases. Respirations even, nonlabored. Currently on 2 liters nasal cannula with oxygen saturation 99%. Able to achieve 8884-9255 mL on incentive spirometry. Strong cough. CARDIOVASCULAR: S1, S2 present. Irregular rate and rhythm, controlled atrial fibrillation on telemetry. Sternum stable. Palpable peripheral pulses bilaterally. Trace generalized edema still present present. No calf pain or tenderness noted. Heart hugger in place with patient demonstrating appropriate use. Antiembolism stockings, SCDs present. GASTROINTESTINAL: Abdomen soft, nontender, nondistended. Active bowel sounds present 4 quadrants. Tolerating minimal diet. GENITOURINARY: Barrow present draining yellow urine. Output overnight 0-150 mL per hour, 1845 mL in the last 24 hours INTEGUMENTARY: Skin is warm and dry. Anterior chest incision well approximated. NEUROLOGIC: Cranial nerves II through XII intact MUSKULOSKELETAL: Able to move all extremities, strength equal bilaterally, generalized weakness PSYCHIATRIC: Alert and oriented to person place and time, appropriate affect, intact judgment and insight - Allied health notes Allied health notes reviewed: nursing - Labs CBC & Chem 7: 12/30/20 04:32 12/30/20 04:32 Labs: Abnormal Lab Results - Last 24 Hours (Table) 12/29/20 12/29/20 12/29/20 Range/Units 00:52 11:38 13:19 WBC (3.8-10.6) k/uL RBC (4.30-5.90) m/uL Hgb (13.0-17.5) gm/dL Hct (39.0-53.0) % MCHC (31.0-37.0) g/dL RDW (11.5-15.5) % Neutrophils # (1.3-7.7) k/uL PT 27.2 H (9.0-12.0) sec INR 2.8 H (<1.2) Sodium (137-145) mmol/L Chloride (98-107) mmol/L Carbon Dioxide (22-30) mmol/L BUN (9-20) mg/dL Creatinine (0.66-1.25) mg/dL Glucose (74-99) mg/dL POC Glucose (mg/dL) 109 H (75-99) mg/dL Calcium (8.4-10.2) mg/dL Magnesium (1.6-2.3) mg/dL Total Bilirubin (0.2-1.3) mg/dL AST (17-59) U/L ALT (4-49) U/L Alkaline Phosphatase (38-126) U/L Total Protein (6.3-8.2) g/dL Albumin (3.5-5.0) g/dL Lipase 473 H (23-300) U/L 12/29/20 12/30/20 12/30/20 Range/Units 21:19 04:32 04:32 WBC 12.2 H (3.8-10.6) k/uL RBC 3.32 L (4.30-5.90) m/uL Hgb 9.9 L (13.0-17.5) gm/dL Hct 32.5 L (39.0-53.0) % MCHC 30.6 L (31.0-37.0) g/dL RDW 16.1 H (11.5-15.5) % Neutrophils # 9.9 H (1.3-7.7) k/uL PT 18.4 H (9.0-12.0) sec INR 1.9 H (<1.2) Sodium (137-145) mmol/L Chloride (98-107) mmol/L Carbon Dioxide (22-30) mmol/L BUN (9-20) mg/dL Creatinine (0.66-1.25) mg/dL Glucose (74-99) mg/dL POC Glucose (mg/dL) 127 H (75-99) mg/dL Calcium (8.4-10.2) mg/dL Magnesium (1.6-2.3) mg/dL Total Bilirubin (0.2-1.3) mg/dL AST (17-59) U/L ALT (4-49) U/L Alkaline Phosphatase (38-126) U/L Total Protein (6.3-8.2) g/dL Albumin (3.5-5.0) g/dL Lipase (23-300) U/L 12/30/20 Range/Units 04:32 WBC (3.8-10.6) k/uL RBC (4.30-5.90) m/uL Hgb (13.0-17.5) gm/dL Hct (39.0-53.0) % MCHC (31.0-37.0) g/dL RDW (11.5-15.5) % Neutrophils # (1.3-7.7) k/uL PT (9.0-12.0) sec INR (<1.2) Sodium 128 L (137-145) mmol/L Chloride 95 L (98-107) mmol/L Carbon Dioxide 21 L (22-30) mmol/L BUN 71 H (9-20) mg/dL Creatinine 2.11 H (0.66-1.25) mg/dL Glucose 123 H (74-99) mg/dL POC Glucose (mg/dL) (75-99) mg/dL Calcium 8.3 L (8.4-10.2) mg/dL Magnesium 2.8 H (1.6-2.3) mg/dL Total Bilirubin 6.0 H (0.2-1.3) mg/dL AST 280 H (17-59) U/L ALT 535 H (4-49) U/L Alkaline Phosphatase 295 H (38-126) U/L Total Protein 5.9 L (6.3-8.2) g/dL Albumin 3.1 L (3.5-5.0) g/dL Lipase (23-300) U/L - Imaging and Cardiology Chest x-ray: image reviewed Assessment and Plan Assessment: 1. Shortness of breath, improved 2. Elevated LFTs, likely from hepatic congestion secondary to heart failure, down trending 3. Bilateral pleural effusions 4. YVETTE 5. Coronary artery disease status post PCI to the LAD in 2005 and subsequent 4 vessel CABG on 12/16/2020 6. Previously preserved left ventricular function, mildly impaired left ventricular systolic function with EF 45-50% on current TTE 7. Chronic atrial fibrillation on Coumadin for anticoagulation with suprathera peutic INR on admission, status post exclusion of the left atrial appendage 8. History of hypertension, currently on midodrine for hypotension 9. History of hyperlipidemia, treated 10. Diet controlled diabetes, recent hemoglobin A1c 6.2% 11. Obstructive sleep apnea on home CPAP, was not on at [facility] 12. Previous pituitary tumor 13. Never smoker, preoperative FEV1 91% of predicted 14. Prior daily wine consumption 15. 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 Continue aspirin, beta junito therapy. Hold statin until liver enzymes returned to normal 2. Continue short acting Cardizem for atrial fibrillation, decreased to 30 mg Q 8 hr. 3. Continue to hold anticoagulation for now, will restart Coumadin after thoracentesis today, will give 5 mg, daily PT/INR with goal 2-3 4. Wean O2 as tolerated. Encourage incentive spirometry is 10 times every hour while awake. Bronchodilators, BiPAP per pulmonology 5. Increase activity, ambulate as tolerated. PT/OT consulted. Patient needs much encouragement to get up to ambulate 6. Will monitor daily labs and x-rays. Will give Vitamin K 2.5 mg IVP x 1, r echeck INR at 13:00 7. Thoracentesis per pulmonology today 8. Continue diuresis with IV Lasix. Nephrology consulted, appreciate recommendations 9. Continue sternal precautions 10. Medical management of other comorbidities per primary care service 11. More recommendations to follow Time with Patient: Greater than 30
--- NOTE | 2020-12-30 08:20 | P.PN ---
Subjective Progress Note Date: 12/30/20 80-year-old male patient being seen in follow-up on 12/29/2020. He was hospitalized yesterday for acute hypoxic respiratory failure, shortness of breath, fluid overload. The patient is post four-vessel bypass surgery and the patient was discharged from the hospital on 12/25/2012 after a nonsmoker for t otal of 11 days. He has history of atrial fibrillation, diabetes mellitus, hypertension and hyperlipidemia and BPH. The patient had some issues with generalized weakness and debility postop. He continued to have some degree of shortness of breath with interval worsening. He came into the emergency department and was quite tachypneic and short of breath. He was transferred to the intensive care unit and he was off her diuretics and BiPAP therapy for restorative support. His BUN was at 62 with a creatinine of 1.7 and his chest x-ray showed cardiomegaly and bilateral pleural effusion. She was started on diuretics. The patient has chronic atrial fibrillation the patient was also discharged home on Lasix. The patient had a lactic acid level of 2.1 which dropped subsequently to 1.7. LFTs are normal with an elevated AST and ALT, improving and the troponin was 0.144 and 0.1. Respectively 2. Lipase level was 468. ProBNP level was 5370. COVID-19 testing was negative. Initial sodium level was 128. Creatinine was 1.68. INR was at 5.6 with a PT of 54 while the patient on Coumadin. Coumadin was maintained on hold.Echocardiogram showed a moderate concentric LVH in addition to mildly impaired left a ejection fraction of around 45-50%. No significant valvular abnormalities. No significant pulmonary hypertension. On today's evaluation, the patient seems to be a bit more alert and awake compared to yesterday. His at 12.6. Creatinine is still impaired with a creatinine of 1.8. The patient is receiving Lasix 40 mg IV every 8 hours. Her net fluid balance over the past 24 hours is -1.2 L. Chest x-ray from today still showing bilateral pleural effusions and MARKING OF THE PLEURAL EFFUSION HAS ALREADY BEEN DONE. THERE IS ALSO PATCHY PERIHILAR AND BASILAR ATELECTATIC CHANGES WITHOUT ANY MAJOR INTERVAL CHANGE COMPARED TO YESTERDAY. CARDIAC RHYTHM REMAINS IRREGULAR CONSISTENT WITH ATRIAL FIBRILLATION. The patient also has an INR of 3.0, slightly improved compared to yesterday. On today's evaluation of 12/30/2020, I'm seeing the patient for a follow-up. He is able to sit up on a chair. Is calm and comfortable. His breathing is still shallow and the follow-up chest x-ray from today showing bilateral pleural effusion slightly worse on the right. Ultrasound of markings of the right chest has been done. Meanwhile, the patient was given vitamin K yesterday total of 2.5 mg IV and the follow-up INR was down to 1.9. I'm going to proceed with a right-sided thoracentesis today. He is currently on 2 L about 2 by nasal cannula. He is using incentive spirometer and he is getting approximately thousand on his INRs. His cardiac rhythm is still atrial fibrillation. The patient remains on a combination of oral Cardizem and metoprolol for rate contro l. His antibiotic patient is currently on hold. He remains on IV Lasix and the patient is receiving Lasix 40 mg IV on a daily basis. Her net fluid balance over the past 24 hours has been -1.2 L. White cell count is at 4.2 with a hemoglobin of 9.9. His LFTs are essentially improving. AST is down to 280, ALT is down to 535, alkaline phosphatase is at 295. Patient is awake and alert. No other significant complaints otherwise for now. The patient is post four-vessel bypass surgery. The patient also has chronic atrial fibrillation, diabetes mellitus, hypertension and hyperlipidemia. Overall, he remains quite weak and somewhat debilitated. LFTs are improving, creatinine is at 2.1. Objective - Vital Signs Vital signs: Vital Signs Temp 96.8 F L 12/30/20 04:00 Pulse 80 12/30/20 07:00 Resp 16 12/30/20 07:00 BP 103/67 12/30/20 07:00 Pulse Ox 100 12/30/20 07:00 Intake & Output 12/29/20 12/30/20 12/30/20 18:59 06:59 18:59 Intake Total 225 420 220 Output Total 1320 525 45 Balance -1095 -105 175 Weight 94.9 kg Intake: Oral 225 420 220 Output: Urine 1320 525 45 Other: Voiding Method Indwelling Catheter Indwelling Catheter - Exam Mild respiratory distress with increased respiratory rate, oriented 3. Saturations are in the mid 90s on2 L nasal cannula. HEENT examination is grossly unremarkable. Neck supple. Full range of motion. No adenopathy thyromegaly or neck vein distention. Cardiovascular examination reveals irregular rhythm rate. S1-S2 normal. No S3 or S4. No discernible murmur noted. The rhythm is irregular consistent with atrial fibrillation. There is also systolic ejection murmur grade 2/6 heard throughout the precordium. Lungs reveal diffuse bibasilar crackles. There is dullness at the bases. Scattered moderate rhonchi are noted. No wheezes appreciated. Abdomen soft bowel sounds are heard. No masses or tenderness. Extremities are intact. No cyanosis or clubbing. 1+ edema is noted. Skin is without rash or lesion. Neurologic examination is brief but nonfocal. - Labs CBC & Chem 7: 12/30/20 04:32 12/30/20 04:32 Labs: Abnormal Lab Results - Last 24 Hours (Table) 12/29/20 12/29/20 12/29/20 Range/Units 00:52 11:38 13:19 WBC (3.8-10.6) k/uL RBC (4.30-5.90) m/uL Hgb (13.0-17.5) gm/dL Hct (39.0-53.0) % MCHC (31.0-37.0) g/dL RDW (11.5-15.5) % Neutrophils # (1.3-7.7) k/uL PT 27.2 H (9.0-12.0) sec INR 2.8 H (<1.2) Sodium (137-145) mmol/L Chloride (98-107) mmol/L Carbon Dioxide (22-30) mmol/L BUN (9-20) mg/dL Creatinine (0.66-1.25) mg/dL Glucose (74-99) mg/dL POC Glucose (mg/dL) 109 H (75-99) mg/dL Calcium (8.4-10.2) mg/dL Magnesium (1.6-2.3) mg/dL Total Bilirubin (0.2-1.3) mg/dL AST (17-59) U/L ALT (4-49) U/L Alkaline Phosphatase (38-126) U/L Total Protein (6.3-8.2) g/dL Albumin (3.5-5.0) g/dL Lipase 473 H (23-300) U/L 12/29/20 12/30/20 12/30/20 Range/Units 21:19 04:32 04:32 WBC 12.2 H (3.8-10.6) k/uL RBC 3.32 L (4.30-5.90) m/uL Hgb 9.9 L (13.0-17.5) gm/dL Hct 32.5 L (39.0-53.0) % MCHC 30.6 L (31.0-37.0) g/dL RDW 16.1 H (11.5-15.5) % Neutrophils # 9.9 H (1.3-7.7) k/uL PT 18.4 H (9.0-12.0) sec INR 1.9 H (<1.2) Sodium (137-145) mmol/L Chloride (98-107) mmol/L Carbon Dioxide (22-30) mmol/L BUN (9-20) mg/dL Creatinine (0.66-1.25) mg/dL Glucose (74-99) mg/dL POC Glucose (mg/dL) 127 H (75-99) mg/dL Calcium (8.4-10.2) mg/dL Magnesium (1.6-2.3) mg/dL Total Bilirubin (0.2-1.3) mg/dL AST (17-59) U/L ALT (4-49) U/L Alkaline Phosphatase (38-126) U/L Total Protein (6.3-8.2) g/dL Albumin (3.5-5.0) g/dL Lipase (23-300) U/L 12/30/20 Range/Units 04:32 WBC (3.8-10.6) k/uL RBC (4.30-5.90) m/uL Hgb (13.0-17.5) gm/dL Hct (39.0-53.0) % MCHC (31.0-37.0) g/dL RDW (11.5-15.5) % Neutrophils # (1.3-7.7) k/uL PT (9.0-12.0) sec INR (<1.2) Sodium 128 L (137-145) mmol/L Chloride 95 L (98-107) mmol/L Carbon Dioxide 21 L (22-30) mmol/L BUN 71 H (9-20) mg/dL Creatinine 2.11 H (0.66-1.25) mg/dL Glucose 123 H (74-99) mg/dL POC Glucose (mg/dL) (75-99) mg/dL Calcium 8.3 L (8.4-10.2) mg/dL Magnesium 2.8 H (1.6-2.3) mg/dL Total Bilirubin 6.0 H (0.2-1.3) mg/dL AST 280 H (17-59) U/L ALT 535 H (4-49) U/L Alkaline Phosphatase 295 H (38-126) U/L Total Protein 5.9 L (6.3-8.2) g/dL Albumin 3.1 L (3.5-5.0) g/dL Lipase (23-300) U/L Assessment and Plan Plan: 1 Acute hypoxemic respiratory failure, likely on the basis of fluid overload/pleural effusions. The patient is currently on 2 L of oxygen by nasal cannula. The patient about the pleural effusions. We'll proceed with a right- sided thoracentesis today. 2 CAD and the patient is post four-vessel bypass grafting, with discharged from the hospital on December 25. Patient had an 11 day hospital stay. Echocardiogram showed a moderate concentric LVH in addition to mildly impaired left a ejection fraction of around 45-50%. No significant valvular abnormalities. No significant pulmonary hypertension. 3 History of atrial fibrillation. The patient had a supratherapeutic INR at time of admission, no bleeding and INR is improving and is down. Rate is controlled with a combination of Cardizem and metoprolol. Subsequently, the patient was given vitamin K, INR from today is at 1.9 in preparation for thoracentesis. 4 History of diabetes mellitus. 5 Hyperlipidemia. 6 Hypertension. 7 BPH 8 acute kidney injury 9 acute transaminitis secondary to above, LFTs elevated, and a declining course 10 nonspecific elevation of the lipase, consider pancreatitis 11 hyponatremia, improving Plan: Proceed with a right-sided thoracentesis today May switch the Lasix to oral and this will discuss with CT surgery Continue using incentive spirometer Monitor creatinine Clinically more alert compared to yesterday. Will involve physical therapy Keep Barrow catheter in place Rate control regarding his atrial fibrillation with a combination of Cardizem by mouth 30 mg every 6 hours and metoprolol 50 mg by mouth twice a day We'll continue to follow
--- NOTE | 2020-12-30 08:31 | P.PCN ---
Date of Procedure: 12/30/20 Preoperative Diagnosis: Right-sided pleural effusion Postoperative Diagnosis: Right-sided pleural effusion Procedure(s) Performed: Right-sided thoracentesis with ultrasound guidance Anesthesia: local Surgeon: Jose Miguel Cartagena Estimated Blood Loss (ml): 0 Pathology: none sent Condition: critical Disposition: ICU Operative Findings: A time out was performed and the chest x-ray was reviewed, the appropriate side was confirmed and marked. My hands were washed immediately prior to the procedure. I wore a surgical cap, mask with protective eyewear, sterile gown and sterile gloves throughout the procedure. The patient was prepped and draped in a sterile manner using chlorhexidine scrub after the appropriate level was percussed and confirmed by ultrasound. 1% lidocaine was used to anesthesize the skin, subcutaneous tissue, superior aspect of the rib periosteum and parietal pleura. A finder needle was then introduced over the superior aspect of the rib to locate the pleural fluid; 2colored fluid was aspirated at a depth of approximately 2 cm. A 10-blade scalpel was used to ramo the skin at the insertion site. The [id number] needle was then introduced through the skin incision into the pleural space using negative aspiration pressure and the red colometric indicator to confirm appropriate positioning of the needle. The thoracentesis catheter was then threaded without difficulty. 650 ml of turbid colored fluid was removed without difficulty. The catheter was then removed. No immediate complications were noted during the procedure. A post-procedure chest x-ray is pending at the time of this note. The fluid will not be sent for studies. Estimated blood loss is 0cc
--- NOTE | 2020-12-30 09:04 | XR ---
EXAMINATION TYPE: XR chest 1V DATE OF EXAM: 12/30/2020 COMPARISON: Chest x-ray 12/29/2020, 12/30/2020 at earlier time HISTORY: Pleural effusion, postthoracentesis TECHNIQUE: Single frontal view of the chest is obtained. FINDINGS: Patient is rotated. Patient is post median sternotomy and left atrial appendage clip place ment. There is persistent abnormal density at the left lung base. Left hemidiaphragm is obscured. No evident pneumothorax. Heart may be enlarged. Interval improved visualization of the right hemidiaphra gm. There are overlying artifacts. IMPRESSION: No evident complication status post thoracentesis.
--- NOTE | 2020-12-30 09:07 | XR ---
EXAMINATION TYPE: XR chest 1V portable DATE OF EXAM: 12/30/2020 COMPARISON: Chest x-ray 12/29/2020 HISTORY: Pleural effusion TECHNIQUE: Single frontal view of the chest is obtained. FINDINGS: There is blunting the costophrenic angles, obscured hemidiaphragms bilaterally left greate r than right. Heart size is likely stable, patient is post median sternotomy and left atrial appendag e clip placement. No evident pneumothorax. There are overlying artifacts. IMPRESSION: Bilateral pleural effusions and associated atelectasis, correlate to exclude pneumonia v ersus edema.
[2020-12-30] MEDS: LIDOCAINE 5% PATCH TOPICAL SCH (09:22)
[2020-12-30] MEDS: MIDODRINE 5 MG TAB PO SCH ×3 (09:22→17:16)
[2020-12-30] MEDS: TAMSULOSIN 0.4 MG CAP.ER.24H PO SCH (09:22)
[2020-12-30] MEDS: FUROSEMIDE 40 MG TAB PO SCH (09:22)
[2020-12-30] MEDS: METOPROLOL TARTRATE 50 MG TAB PO SCH ×2 (09:22→21:03)
[2020-12-30] MEDS: INSULIN ASPART (NovoLOG) 100 UNIT/ML VIAL SQ SCH ×4 (09:23→22:21)
[2020-12-30] MEDS ORDERED: IOPAMIDOL CONTRAST (ORAL USE) VIAL PO PRN (11:10)
[2020-12-30 11:23] LABS: Glucose,Whole Blood 134 mg/dL (75-99)
--- NOTE | 2020-12-30 11:23 | P.PN ---
Subjective Progress Note Date: 12/30/20 Principal diagnosis: Bilateral pleural effusion The patient is a pleasant 80-year-old gentleman with a past medical history significant for coronary artery disease and status post CABG as well as permanent atrial fibrillation as well as multiple comorbid conditions was admitted to the hospital with increasing shortness of breath and he was diagnosed with bilateral pleural effusion. He was started on Lasix. The patient was seen this morning. He was on BiPAP all night. His shortness of breath has improved. He underwent right pleurocentesis and is breathing sounds definitely is better on the right but he still have diminished breathing sounds on the left. He reports no symptoms of chest pain or chest discomfort PT potentially need to undergo pleurocentesis on the left side as well. He is going to be started on oral anticoagulation later today. Objective - Vital Signs Vital signs: Vital Signs Temp 98.6 F 12/30/20 08:00 Pulse 83 12/30/20 10:00 Resp 17 12/30/20 10:00 BP 98/67 12/30/20 10:00 Pulse Ox 92 L 12/30/20 10:00 Intake & Output 12/29/20 12/30/20 12/30/20 18:59 06:59 18:59 Intake Total 225 420 220 Output Total 1320 525 120 Balance -1095 -105 100 Weight 94.9 kg Intake: Oral 225 420 220 Output: Urine 1320 525 120 Other: Voiding Method Indwelling Catheter Indwelling Catheter Indwelling Catheter - Constitutional General appearance: Present: no acute distress - Respiratory Respiratory: bilateral: diminished - Cardiovascular Rhythm: irregularly irregular - Labs CBC & Chem 7: 12/30/20 04:32 12/30/20 04:32 Labs: Abnormal Lab Results - Last 24 Hours (Table) 12/29/20 12/29/20 12/29/20 Range/Units 11:38 13:19 21:19 WBC (3.8-10.6) k/uL RBC (4.30-5.90) m/uL Hgb (13.0-17.5) gm/dL Hct (39.0-53.0) % MCHC (31.0-37.0) g/dL RDW (11.5-15.5) % Neutrophils # (1.3-7.7) k/uL PT 27.2 H (9.0-12.0) sec INR 2.8 H (<1.2) Sodium (137-145) mmol/L Chloride (98-107) mmol/L Carbon Dioxide (22-30) mmol/L BUN (9-20) mg/dL Creatinine (0.66-1.25) mg/dL Glucose (74-99) mg/dL POC Glucose (mg/dL) 109 H 127 H (75-99) mg/dL Calcium (8.4-10.2) mg/dL Magnesium (1.6-2.3) mg/dL Total Bilirubin (0.2-1.3) mg/dL AST (17-59) U/L ALT (4-49) U/L Alkaline Phosphatase (38-126) U/L Total Protein (6.3-8.2) g/dL Albumin (3.5-5.0) g/dL 12/30/20 12/30/20 12/30/20 Range/Units 04:32 04:32 04:32 WBC 12.2 H (3.8-10.6) k/uL RBC 3.32 L (4.30-5.90) m/uL Hgb 9.9 L (13.0-17.5) gm/dL Hct 32.5 L (39.0-53.0) % MCHC 30.6 L (31.0-37.0) g/dL RDW 16.1 H (11.5-15.5) % Neutrophils # 9.9 H (1.3-7.7) k/uL PT 18.4 H (9.0-12.0) sec INR 1.9 H (<1.2) Sodium 128 L (137-145) mmol/L Chloride 95 L (98-107) mmol/L Carbon Dioxide 21 L (22-30) mmol/L BUN 71 H (9-20) mg/dL Creatinine 2.11 H (0.66-1.25) mg/dL Glucose 123 H (74-99) mg/dL POC Glucose (mg/dL) (75-99) mg/dL Calcium 8.3 L (8.4-10.2) mg/dL Magnesium 2.8 H (1.6-2.3) mg/dL Total Bilirubin 6.0 H (0.2-1.3) mg/dL AST 280 H (17-59) U/L ALT 535 H (4-49) U/L Alkaline Phosphatase 295 H (38-126) U/L Total Protein 5.9 L (6.3-8.2) g/dL Albumin 3.1 L (3.5-5.0) g/dL Assessment and Plan Assessment: Assessment #1 coronary artery disease and status post CABG #2 bilateral pleural effusion #3 mild cardiomyopathy #4 permanent atrial fibrillation #5 multiple comorbid conditions Plan #1 continue the current dose of Lasix by mouth #2 continue monitor the kidney function and electrolytes #3 restart oral anticoagulation #4 possible pleurocentesis on the left side
--- NOTE | 2020-12-30 14:42 | P.PN ---
Subjective Progress Note Date: 12/30/20 HISTORY OF PRESENT ILLNESS This is a 80-year-old male patient of Dr. Campos and Dr. Mullins with past medical history of chronic persistent atrial fibrillation, diabetes mellitus type 2, hypertension, hyperlipidemia, history of pituitary tumor resection, obstructive sleep apnea on BiPAP, gastroesophageal reflux disease, benign prostatic hypertrophy. He should also has history of coronary artery disease status post PCI to the LAD in 2005, heart catheterization in October 2020 found severe triple-vessel disease, subsequently admitted to the hospital for elective coronary artery bypass grafting 12/16 for four-vessel bypass MORAN to LAD, left radial artery from the aorta to the first obtuse marginal artery, reverse saphenous vein graft from the aorta to the second diagonal artery, reverse saphenous vein graft from the aorta to the posterior descending artery, endoscopic harvesting of the left radial artery, endoscopic harvesting of the left greater saphenous vein from ankle to the groin, exclusion of the left atrial appendage. During his last admission, he remained in ICU,Until December 24,, and after he was transferred to [facility] for cardiac recovery program. He has chronic atrial fibrillation, diabetes mellitus type 2, hypertension, hyperlipidemia, history of pituitary gland resection, obstructive sleep apnea, BPH with urinary retention, and delirium.. At the time of discharge, he was on Coumadin and Singulair Cardizem CD lisinopril Tylenol, he was taken off atenolol Vytorin lisinopril Imdur aspirin and nitro. -He comes back to the emergency room 2 days later, from [facility], secondary to shortness of breath, and edema. She also has worsening of her liver issues, with no visible jaundice. On ER presentation, he has indwelling Barrow catheter, there is no fever, no focal deficit, chest pain, he has shortness of breath, no vomiting, no diarrhea, no melena. In the emergency room, EKG shows atrial fibrillation heart rate of 79, no significant change compared to 927 EKG, double basic count is 15, hemoglobin of 9, sodium of 131, BUN 62 creatinine 4.7, CO2 of 19 total bili of 7.3, AST 949 ALT 881, alkaline phosphatase 411, troponin is stagnant at 0.14, and 0.148. Lactic acid level was 2.1, INR is 3.3 ultrasound of the gallbladder, shows common bile duct is normal, liver is enlarged, otherwise no other pathologies noted. Chest x-ray shows bilateral pleural effusion, basilar pulmonary infiltrates, which slightly is worse compared to previous, mild heart failure is possible, cardiomegaly some change patient is admitted to ICU with consultation to critical care medicine Dr. Vásquez, and cardiology. Chest ultrasound is ordered CMV and hepatitis panels ordered, patient would need a CAT scan of the abdomen, to eval for spleen gallbladder, Tylenol is discontinued, Lipitor is discontinued check for haptoglobin, reticulocyte count, and iron studies to evaluate portal system. 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 INR is 3. Sodium 132, potassium 4.1, chloride 100, CO2 18, BUN 65 and creatinine 1.81, blood sugar 119. Total bilirubin 6.5, AST 493, ALT 663, alkaline phosphatase 360. INR is 3.0. Magnesium 2.6. Lipase 473. CMV nonreactive 2 draws. Hepatitis panel negative. Repeat chest x-ray reveals patchy perihilar and basilar infiltrates/atelectasis as well as pleural effusions persist without significant interval change. Dr. Cartagena has ordered for vitamin K 2.5 mg and repeat INR with plan for thoracentesis once INR is und er 2. Patient is also followed by cardiology and Lasix decreased to 40 mg IV daily. Echocardiogram reveals EF of 45-60% with moderate concentric left hypertrophy, LA is severely dilated, mild to moderate mitral regurgitation, mild tricuspid regurgitation. Patient denies having any shortness of breath at rest. He denies abdominal pain, no nausea. He has had good urine output around 35 mL per hour. 12/30: Patient underwent right sided thoracentesis this morning with Dr. Cartagena with removal of approximately 650 ML's of turbid fluid. Repeat chest x- ray following procedure showed no complications. Patient was on BiPAP during the night and currently on O2 by nasal cannula at 3 L with pulse ox of 97%. Blood pressure 101/64, heart rate 81, afebrile. Patient has been seen and followed by nephrology for acute kidney injury secondary to hypotension and hypoperfusion. Plan is to continue diuresis in the patient, hold MAURA inhibitor, check cortisol level, monitor I&O's. Midodrine was increased yesterday. Repeat blood work today reveals WBC 12.2, hemoglobin 9.9 and platelet count 312. INR this morning was 1.9. Sodium 128, potassium 4.7, chloride 95, CO2 21, BUN 71 and creatinine 2.11. Blood sugars running between 109 and 134. Repeat liver function tests reveal total bilirubin 6, AST 28, ALT 535, alkaline phosphatase 295. Magnesium 2.8. Cortisol level came back at 27. Patient will be transferred to the cardiac stepdown unit. REVIEW OF SYSTEMS Constitutional: No fever, no chills, no night sweats. No weight change. No weakness, fatigue or lethargy. No daytime sleepiness. EENT: No headache. No blurred vision or double vision, no loss of vision. No loss of Hearing, no ringing in the ears, no dizziness. No nasal drainage or congestion. No epistaxis. No sore throat. Lungs: Reports shortness of breath, cough, no sputum production. No wheezing. Reports dyspnea with exertion. Cardiovascular: No chest pain, no lower extremity edema. No palpitations. No paroxysmal nocturnal dyspnea. No orthopnea. No lightheadedness or dizziness. No syncopal episodes. Abdominal: No abdominal pain. No nausea, vomiting. No diarrhea. No constip ation. No bloody or tarry stools.. No loss of appetite. Genitourinary: No dysuria, increased frequency, urgency. No urinary retention. Musculoskeletal: No myalgias. No muscle weakness, no gait dysfunction, no frequent falls. No back pain. No neck pain. Integumentary: No wounds, no lesions. No rash or pruritus. No unusual bruising. No change in hair or nails. Neurologic: No aphasia. No facial droop. No change in mentation. No head injury. No headache. No paralysis. No paresthesia. Psychiatric: No depression. No anxiety. No mood swings. Endocrine: No abnormal blood sugars. No weight change. PHYSICAL EXAMINATION Gen: This is a 80-year-old male. He sitting in a recliner in the intensive care unit. He appears to be in no acute distress. HEENT: Head is atraumatic, normocephalic. Pupils equal, round. Sclerae is anicteric. Patient is severely hard of hearing NECK: Supple. No JVD. No lymphadenopathy. No thyromegaly. LUNGS: Diminished to the bilateral basis, improved to the right side. No intercostal retractions. HEART: Irregular rate and rhythm. No murmur. ABDOMEN: Soft. Bowel sounds are present. No masses. No tenderness. Barrow c atheter draining holly urine. EXTREMITIES: 1+ bilateral pedal edema. No calf tenderness. NEUROLOGICAL: Patient is awake, alert and oriented x3. Cranial nerves 2 through 12 are grossly intact. ASSESSMENT AND PLAN 1. Acute hypoxic respiratory failure secondary to fluid overload and pleural effusions. Patient is status post right-sided thoracentesis, continue Lasix transitioned to oral 40 mg daily, monitor I&O and daily weights, monitor renal function and electrolytes. 2. Severe coagulopathy, on Coumadin, with worsening of transaminitis, with jaundice, suspect hepatobiliary obstruction, gallstone pancreatitis however, and bile duct is normal, Lipitor and Tylenol was discontinued and held, Coumadin on hold. No GI consultation is available, till January 12, monitor liver function tests. INR to be monitored daily. Patient is status post vitamin K. 3. Acute kidney injury secondary to hypoperfusion, hepatorenal syndrome. Consult added for nephrology. Avoid nephrotoxic agents. 4. Metabolic acidosis secondary to acute kidney injury. 5. Coronary artery disease status post 4 vessel CABG 12/16. Continue current management per cardio thoracic surgery. Continue aspirin 81 mg daily, Lipitor on hold, Lopressor 50 mg twice daily 6. Chronic persistent atrial fibrillation. Continue Lopressor, Cardizem 30 mg every 6 hours. Coumadin is on hold. 7. Acute hypoxemic respiratory failure, patient's on BiPAP supplementatio, followed closely by critical care medicine and pulmonary 8. Diabetes mellitus type 2. Continue with NovoLog scale before meals and at bedtime, blood sugar is controlled. 9. Hypertension. Continue Lopressor. 10. Hyperlipidemia. Hold Lipitor. 11. Urinary retention. Maintain Barrow catheter, continue Flomax or 0.5 mg d aily. 12. History of pituitary gland resection. 13 Obstructive sleep apnea on BiPAP. 14. Gastroesophageal reflux disease. 15. DVT prophylaxis. HA hose. 16. GI prophylaxis. Protonix. DISCHARGE PLAN Most likely return to [facility] for subacute rehab. Impression and plan of care have been directed as dictated by the signing physician. Erica Alfredo nurse practitioner acting as scribe for signing physician. Objective - Vital Signs Vital signs: Vital Signs Temp 98.6 F 12/30/20 08:00 Pulse 83 12/30/20 10:00 Resp 17 12/30/20 10:00 BP 98/67 12/30/20 10:00 Pulse Ox 92 L 12/30/20 10:00 Intake & Output 12/29/20 12/30/20 12/30/20 18:59 06:59 18:59 Intake Total 225 420 220 Output Total 1320 525 120 Balance -1095 -105 100 Weight 94.9 kg Intake: Oral 225 420 220 Output: Urine 1320 525 120 Other: Voiding Method Indwelling Catheter Indwelling Catheter Indwelling Catheter - Labs CBC & Chem 7: 12/30/20 04:32 12/30/20 04:32 Labs: Abnormal Lab Results - Last 24 Hours (Table) 12/29/20 12/29/20 12/29/20 Range/Units 11:38 13:19 21:19 WBC (3.8-10.6) k/uL RBC (4.30-5.90) m/uL Hgb (13.0-17.5) gm/dL Hct (39.0-53.0) % MCHC (31.0-37.0) g/dL RDW (11.5-15.5) % Neutrophils # (1.3-7.7) k/uL PT 27.2 H (9.0-12.0) sec INR 2.8 H (<1.2) Sodium (137-145) mmol/L Chloride (98-107) mmol/L Carbon Dioxide (22-30) mmol/L BUN (9-20) mg/dL Creatinine (0.66-1.25) mg/dL Glucose (74-99) mg/dL POC Glucose (mg/dL) 109 H 127 H (75-99) mg/dL Calcium (8.4-10.2) mg/dL Magnesium (1.6-2.3) mg/dL Total Bilirubin (0.2-1.3) mg/dL AST (17-59) U/L ALT (4-49) U/L Alkaline Phosphatase (38-126) U/L Total Protein (6.3-8.2) g/dL Albumin (3.5-5.0) g/dL 12/30/20 12/30/20 12/30/20 Range/Units 04:32 04:32 04:32 WBC 12.2 H (3.8-10.6) k/uL RBC 3.32 L (4.30-5.90) m/uL Hgb 9.9 L (13.0-17.5) gm/dL Hct 32.5 L (39.0-53.0) % MCHC 30.6 L (31.0-37.0) g/dL RDW 16.1 H (11.5-15.5) % Neutrophils # 9.9 H (1.3-7.7) k/uL PT 18.4 H (9.0-12.0) sec INR 1.9 H (<1.2) Sodium 128 L (137-145) mmol/L Chloride 95 L (98-107) mmol/L Carbon Dioxide 21 L (22-30) mmol/L BUN 71 H (9-20) mg/dL Creatinine 2.11 H (0.66-1.25) mg/dL Glucose 123 H (74-99) mg/dL POC Glucose (mg/dL) (75-99) mg/dL Calcium 8.3 L (8.4-10.2) mg/dL Magnesium 2.8 H (1.6-2.3) mg/dL Total Bilirubin 6.0 H (0.2-1.3) mg/dL AST 280 H (17-59) U/L ALT 535 H (4-49) U/L Alkaline Phosphatase 295 H (38-126) U/L Total Protein 5.9 L (6.3-8.2) g/dL Albumin 3.1 L (3.5-5.0) g/dL
--- NOTE | 2020-12-30 14:48 | PN ---
PROGRESS NOTE The patient is seen for followup for acute kidney injury. The patient was admitted to the hospital with weakness, shortness of breath. He was found to be volume overloaded with the hypotension and shock liver and significantly elevated liver enzymes with hyperbilirubinemia. The patient received diuretics initially. He has been on midodrine which was increased yesterday. Systolic blood pressure has improved with systolic now around 101-100 mmHg. The patient has fair urine output with 24 hour output documented at about 1.8 L. His Lasix was changed to IV today. There are no other nephrotoxic agents. Patient has not received any IV contrast during this admission. He also had a right thoracentesis done this morning and about 650 mL of fluid was obtained. PHYSICAL EXAMINATION: On examination today, blood pressure is 104/63, heart rate 92 per minute. Patient is afebrile. Examination of the heart S1, S2. Examination of lungs, decreased breath sounds at the bases. Abdomen is soft, nontender, obese. Examination of lower extremities shows edema 2+ bilaterally with edema noted on the back as well and dependent areas. MEAT MOLDER exam grossly intact. LAB: Show sodium 128, potassium 4.7, chloride 95, BUN 71, serum creatinine 2.1 mg/dL, hemoglobin 9.9 g/dL. ASSESSMENT: 1. Acute kidney injury secondary to hypotension hypoperfusion, ATN, currently nonoliguric. Serum creatinine increased to 2.1, however, patient remains volume overloaded. Continue to diurese the patient. I will continue with oral Lasix for now. 2. Hypervolemic hyponatremia with borderline blood pressures. The patient is encouraged to increase oral protein intake. I will check a random urine osmolality. He is not an ideal candidate for sodium chloride given the hypervolemia but I will give one dose of 1 g of sodium chloride. Continue with oral Lasix for now, maintain fluid restriction and repeat labs in a.m. The patient has acute liver injury, therefore, tolvaptan would also not be ideal. 3. Hypervolemia. Continue to diurese the patient gently. 4. Pleural effusion status post right thoracentesis. 5. Cardiomyopathy, ejection fraction of about 45-50%. 6. Severely dilated left atrium. 7. Status post coronary artery bypass surgery on 12/16/2020. PLAN: Continue with oral Lasix. Continue with midodrine. Maintain fluid restriction. Repeat labs in a.m. and sodium chloride 1 gram x1. Check urine osmolality and increase oral protein intake. MMODL / IJN: [id number] /
--- NOTE | 2020-12-30 16:15 | CT ---
EXAMINATION TYPE: CT abdomen pelvis wo con DATE OF EXAM: 12/30/2020 COMPARISON: CT 04/30/2016 HISTORY: Weakness and yellowing to the eyes CT DLP: 1092.4 mGycm Automated exposure control for dose reduction was used. TECHNIQUE: Helical acquisition of images from the lung bases through the pelvis. Patient received or al contrast only. FINDINGS: Lack of intravenous contrast could compromise sensitivity of the exam. Patient is post median sternotomy. The heart is enlarged. There is a pericardial effusion present. Ma ximum thickness posteriorly is approximately 2.3 cm and the effusion is high attenuation suggesting h emopericardium posteriorly. Coronary artery calcifications noted. There are anasarca changes. LUNG BASES: There is a left pleural effusion and associated atelectasis. Patchy densities present at the right lung base, difficult to exclude airspace disease. AORTA: No significant abnormality is appreciated. LIVER/GB: No significant abnormality is appreciated. PANCREAS: No significant abnormality is seen. SPLEEN: No significant abnormality is seen. ADRENALS: No significant abnormality is seen. KIDNEYS: Nonobstructive calculus is present within the upper pole the left kidney which is only 3 to 4 mm in size. Viper nephrosis, hydroureter likely due to the distended bladder bilaterally, bladder o utlet obstruction due to Moss catheter positioning. REPRODUCTIVE ORGANS: Prostate is enlarged.. URINARY BLADDER: Air urine level present within the distended bladder. Moss catheter present within the prostate gland.. BOWEL: No significant abnormality is seen. FREE AIR: No Free Air is visible. ASCITES: None visible. PELVIC ADENOPATHY: None visualized. RETROPERITONEAL ADENOPATHY: No Retroperitoneal Adenopathy visible. OSSEOUS STRUCTURES: Degenerative disc changes are present in the visualized lumbar spine, there is a ssociated facet arthropathy. IMPRESSION: MOSS CATHETER IS DESCRIBED, REPORT RELAYED TO THE PATIENT'S NURSE TELEPHONICALLY AT THE TIME OF INTE RPRETATION. ANASARCA CHANGE. NONOBSTRUCTIVE LEFT NEPHROLITHIASIS. NONCONTRAST EXAM. LEFT PLEURAL EFFU CHOLO, DIFFICULT TO EXCLUDE BASILAR PNEUMONIA OR ATELECTASIS. THERE MAY BE A POSTERIOR DEPENDENT HEMOP ERICARDIUM. CORONARY ARTERY DISEASE.
[2020-12-30 16:39] LABS: Glucose,Whole Blood 97 mg/dL (75-99)
--- NOTE | 2020-12-30 16:41 | P.PCN ---
Date of Procedure: 12/30/20 Description of Procedure: Date of Procedure: 12/30/20 Preoperative Diagnosis: Left-sided pleural effusion Postoperative Diagnosis: Left sided pleural effusion Procedure(s) Performed: Left-sided thoracentesis with ultrasound guidance Anesthesia: local Surgeon: Jose Miguel Cartagena Estimated Blood Loss (ml): 0 Pathology: none sent Condition: critical Disposition: ICU Operative Findings: A time out was performed and the chest x-ray was reviewed, the appropriate side was confirmed and marked. My hands were washed immediately prior to the procedure. I wore a surgical cap, mask with protective eyewear, sterile gown and sterile gloves throughout the procedure. The patient was prepped and draped in a sterile manner using chlorhexidine scrub after the appropriate level was percussed and confirmed by ultrasound. 1% lidocaine was used to anesthesize the skin, subcutaneous tissue, superior aspect of the rib periosteum and parietal pleura. A finder needle was then introduced over the superior aspect of the rib to locate the pleural fluid; 2colored fluid was aspirated at a depth of approximately 2 cm. A 10-blade scalpel was used to ramo the skin at the insertion site. The [id number] needle was then introduced through the skin incision into the pleural space using negative aspiration pressure and the red colometric indicator to confirm appropriate positioning of the needle. The thoracentesis catheter was then threaded without difficulty. 1300 ml of turbid colored fluid was removed without difficulty. The catheter was then removed. No immediate complications were noted during the procedure. A post-procedure chest x-ray is pending at the time of this note. The fluid will not be sent for studies. Estimated blood loss is 0cc
[2020-12-30] MEDS: CALCIUM CARBONATE 500 MG CHEWABLE PO SCH (17:10)
[2020-12-30] MEDS: ASCORBIC ACID 500 MG TAB PO SCH (17:13)
[2020-12-30] MEDS: CHOLECALCIFEROL 25 MCG (1000 IU) TABLET PO SCH (17:13)
[2020-12-30] MEDS: ASPIRIN 81 MG PO SCH (17:16)
[2020-12-30] MEDS ORDERED: WARFARIN 5 MG TAB PO ONE (18:00)
[2020-12-30] MEDS: SENNOSIDES-DOCUSATE SODIUM 1 EACH TAB PO SCH (21:02)
[2020-12-30] MEDS: MONTELUKAST 10 MG TAB PO SCH (21:02)
[2020-12-30] MEDS: LATANOPROST 0.005% OPHTH DROPS 2.5 ML BTL BOTH EYES SCH (21:03)
[2020-12-31 00:48] LABS: Glucose,Whole Blood 135 mg/dL (75-99)
[2020-12-31] MEDS ORDERED: SODIUM CHLORIDE 0.9% 500 ML 250 ML IV ONE (00:56)
[2020-12-31] MEDS ORDERED: SODIUM CHLORIDE 0.9% 1,000 ML IV ONE (01:20)
[2020-12-31] MEDS: DILTIAZEM ORAL 30 MG TAB PO SCH (01:21)
[2020-12-31 02:16] LABS: Glucose,Whole Blood 138 mg/dL (75-99)
[2020-12-31] MEDS ORDERED: SODIUM CHLORIDE 0.9% 500 ML 500 ML IV ONE (02:30)
[2020-12-31] MEDS ORDERED: NOREPINEPHRIN 4 MG-0.9% NS PMX 4 MG/250 ML ML IV ONE (03:02)
[2020-12-31] MEDS: NOREPINEPHRINE 4 MG in SODIUM CHLORIDE 0.9% 250 ML IV SCH ×2 (03:06→17:24)
--- NOTE | 2020-12-31 03:07 | P.EN ---
A team note Activated at 12:46 am. Arrived on the scene shortly after. Reviewed the chart and discussed the case with RN. The A team was activated due to hypotension. The patient's vitals upon arrival her BP 60/50, pulse 57, SpO2 100% on 4 L nasal cannula oxygen. He reported feeling somewhat lightheaded. The patient does postop day 11 from open heart surgery. He denied having chest pain or shortness of breath. No fevers were noted over the past 12 hours. The patient's Barrow catheter draining dark brown urine. Laboratory evaluation reviewed with BUN 71 and creatinine 2. The patient underwent thoracentesis earlier in the day with 1300 mL of fluid removed. General: Ill-appearing male, in no acute distress, appears stated age HEENT: NC/AT, anicteric sclerae, moist conjunctiva, no lid-lag, PERRLA, oral mucosa very dry Cardiovascular: S1/S2 wnl, no murmurs, rubs, or gallops, sternal incision closed and healing well Lungs: Clear to auscultation, normal respiratory effort, no accessory muscle use Abdominal: Soft, non-tender, non-distended, no guarding, rebound, or rigidity Skin: Warm, dry Extremities: No edema or contractures Psychiatric: Somewhat lethargic, oriented only to self and place, not oriented to time Neuro:No gross focal deficits noted Assessment/plan Hypotension, suspected secondary to overdiuresis with poor oral intake -250 mL of IV NS bolus initially ordered -1 L NS bolus ordered by Dr Cartagena -The case was subsequently discussed in detail with the LINK TRAINER TEACHER from Cardiothoracic surgery regarding further fluid resuscitation -The patient at very high risk for fluid overload -Started on BiPAP -Continue to monitor closely as he may need further IV fluids if blood pressure does not improve -Hold off on any antihypertensives for now including Lopressor and Cardizem -Primary team was notified Total time spent providing critical care: 35 minutes
--- NOTE | 2020-12-31 03:45 | XR ---
EXAMINATION TYPE: XR chest 1V portable DATE OF EXAM: 12/31/2020 COMPARISON: Yesterday HISTORY: Short of breath TECHNIQUE: Single view FINDINGS: Heart is enlarged. There is some infiltrate in both lower lung diaz. There are sternal wi res. There are chest leads. There is mild pulmonary congestion. IMPRESSION: There is some right lower lobe pneumonia which is new compared to yesterday. There is lef t lower lobe pneumonia and pleural fluid that is the same or slightly improved compared to yesterday. There is new pulmonary vascular congestion. Mild heart failure is possible.
[2020-12-31 04:04] LABS: Anisocytosis Slight; HCT 32.2 % (39.0-53.0); HGB 10.4 gm/dL (13.0-17.5); Hypochromasia Moderate; MCH 30.9 pg (25.0-35.0); MCHC 32.3 g/dL (31.0-37.0); MCV 95.5 fL (80.0-100.0); Macrocytosis Slight; Mean Platelet Volume 8.4; Platelet Count 282 k/uL (150-450); Poikilocytosis Marked; RBC 3.37 m/uL (4.30-5.90); RDW 16.6 % (11.5-15.5); WBC 16.5 k/uL (3.8-10.6)
[2020-12-31 04:19] LABS: Albumin 2.8 g/dL (3.5-5.0); Calcium 7.6 mg/dL (8.4-10.2); Potassium 5.8 mmol/L (3.5-5.1); Total Bilirubin 5.8 mg/dL (0.2-1.3); Total Protein 5.5 g/dL (6.3-8.2)
[2020-12-31 04:21] LABS: INR 2.9 (<1.2); Prothrombin Time 27.5 sec (9.0-12.0)
[2020-12-31 07:07] LABS: Glucose,Whole Blood 144 mg/dL (75-99)
[2020-12-31] MEDS: PANTOPRAZOLE 40 MG TABLET PO SCH (07:11)
[2020-12-31] MEDS: INSULIN ASPART (NovoLOG) 100 UNIT/ML VIAL SQ SCH ×4 (07:11→22:08)
[2020-12-31 07:42] LABS: ABG Base Excess -8.8 mmol/L; ABG HCO3 16 mmol/L (21-25); ABG Oxygen Saturation 99.8 % (94-97); ABG PCO2 24 mmHg (35-45); ABG PH 7.43 (7.35-7.45); ABG PO2 129 mmHg (83-108); ABG TCO2 16 mmol/L (19-24); Allen Test Performed? Yes
[2020-12-31] MEDS ORDERED: SODIUM CHLORIDE 0.9% 1,000 ML IV SCH (07:45)
[2020-12-31] MEDS ORDERED: SODIUM BICARB 8.4% 50 ML SYR (1 MEQ/ML) IV STA ×2 (08:27→17:10)
[2020-12-31] MEDS ORDERED: CALCIUM GLUCONATE 1 GM in SODIUM CHLORIDE 0.9% 100 ML IVPB ONE (08:27)
--- NOTE | 2020-12-31 08:27 | XR ---
EXAMINATION TYPE: XR chest 1V portable DATE OF EXAM: 12/31/2020 COMPARISON: 12/31/2020 HISTORY: Pleural effusion TECHNIQUE: Single frontal view of the chest is obtained. FINDINGS: Heart is enlarged and there is postoperative change. Left-sided consolidation and small ef fusion. No pneumothorax or overt failure. Subsegmental changes right lung base stable. IMPRESSION: Stable bibasilar infiltrate and small left pleural effusion.
--- NOTE | 2020-12-31 08:39 | P.PN ---
Subjective Progress Note Date: 12/31/20 80-year-old male patient being seen in follow-up on 12/29/2020. He was hospitalized yesterday for acute hypoxic respiratory failure, shortness of breath, fluid overload. The patient is post four-vessel bypass surgery and the patient was discharged from the hospital on 12/25/2012 after a nonsmoker for t otal of 11 days. He has history of atrial fibrillation, diabetes mellitus, hypertension and hyperlipidemia and BPH. The patient had some issues with generalized weakness and debility postop. He continued to have some degree of shortness of breath with interval worsening. He came into the emergency department and was quite tachypneic and short of breath. He was transferred to the intensive care unit and he was off her diuretics and BiPAP therapy for restorative support. His BUN was at 62 with a creatinine of 1.7 and his chest x-ray showed cardiomegaly and bilateral pleural effusion. She was started on diuretics. The patient has chronic atrial fibrillation the patient was also discharged home on Lasix. The patient had a lactic acid level of 2.1 which dropped subsequently to 1.7. LFTs are normal with an elevated AST and ALT, improving and the troponin was 0.144 and 0.1. Respectively 2. Lipase level was 468. ProBNP level was 5370. COVID-19 testing was negative. Initial sodium level was 128. Creatinine was 1.68. INR was at 5.6 with a PT of 54 while the patient on Coumadin. Coumadin was maintained on hold.Echocardiogram showed a moderate concentric LVH in addition to mildly impaired left a ejection fraction of around 45-50%. No significant valvular abnormalities. No significant pulmonary hypertension. On today's evaluation, the patient seems to be a bit more alert and awake compared to yesterday. His at 12.6. Creatinine is still impaired with a creatinine of 1.8. The patient is receiving Lasix 40 mg IV every 8 hours. Her net fluid balance over the past 24 hours is -1.2 L. Chest x-ray from today still showing bilateral pleural effusions and MARKING OF THE PLEURAL EFFUSION HAS ALREADY BEEN DONE. THERE IS ALSO PATCHY PERIHILAR AND BASILAR ATELECTATIC CHANGES WITHOUT ANY MAJOR INTERVAL CHANGE COMPARED TO YESTERDAY. CARDIAC RHYTHM REMAINS IRREGULAR CONSISTENT WITH ATRIAL FIBRILLATION. The patient also has an INR of 3.0, slightly improved compared to yesterday. On today's evaluation of 12/30/2020, I'm seeing the patient for a follow-up. He is able to sit up on a chair. Is calm and comfortable. His breathing is still shallow and the follow-up chest x-ray from today showing bilateral pleural effusion slightly worse on the right. Ultrasound of markings of the right chest has been done. Meanwhile, the patient was given vitamin K yesterday total of 2.5 mg IV and the follow-up INR was down to 1.9. I'm going to proceed with a right-sided thoracentesis today. He is currently on 2 L about 2 by nasal cannula. He is using incentive spirometer and he is getting approximately thousand on his INRs. His cardiac rhythm is still atrial fibrillation. The patient remains on a combination of oral Cardizem and metoprolol for rate contro l. His antibiotic patient is currently on hold. He remains on IV Lasix and the patient is receiving Lasix 40 mg IV on a daily basis. Her net fluid balance over the past 24 hours has been -1.2 L. White cell count is at 4.2 with a hemoglobin of 9.9. His LFTs are essentially improving. AST is down to 280, ALT is down to 535, alkaline phosphatase is at 295. Patient is awake and alert. No other significant complaints otherwise for now. The patient is post four-vessel bypass surgery. The patient also has chronic atrial fibrillation, diabetes mellitus, hypertension and hyperlipidemia. Overall, he remains quite weak and somewhat debilitated. LFTs are improving, creatinine is at 2.1. On 12/31/2020, the patient is being seen for a follow-up. After being transferred to a medical floor, the patient got transferred back to the intensive care unit as the patient was becoming hypotensive. Note that the patient underwent bilateral thoracentesis yesterday were a total of 650 mL of fluid aspirated from the right and approximately 1.2 L of fluid was aspirated from the left. No complications following the procedure. No pneumothorax. The patient adequate expansion of both lungs. Overnight, the patient became hypotensive and he got transferred to the intensive care unit. Urine output was dropping. Note that there was a problem with his Barrow catheter with the balloon being within the prostate. Ex appropriate positioning Barrow catheter was done. The catheter was advanced and there was adequate amount of urine output initially and subsequently the urine output tapered off. For now, the patient is hypotensive. He received a total of 1.5 L of normal saline overnight. Currently is receiving normal saline at rate of 75 mL an hour. Urine output is no order of 20-30 mL an hour. The patient overnight was also placed on pressors and norepinephrine infusion is running at 0.06 mcg/kg per minute. The patient is also on BiPAP for respiratory support and the current settings are 12/5 cm of water with an FiO2 of 40%. The patient is calm and comfortable and the patient is able to generate adequate tidal volumes of 650 with a rate of 20 and a minute ventilation of 13.5. The blood work from today shows a component of anion gap metabolic acidosis. The serum bicarbonate is down to 10 and anion gap is up to 19. His sodium level has dropped down to 125. The patient has developed an acute kidney injury probably related to an obstructive uropathy. Creatinine is up to 2.75. He does have a bicarb deficit also. The blood gas showed a pH of 7.43 with a pCO2 of 24 and pO2 of 129 and this was done on the above-mentioned BiPAP settings. He is awake. He is alert. Surgical wound site is dry clean and intact. He is arousable and is following commands. Current pulse ox is 99% and the patient is able to follow commands and answer questions appropriately. White cell count at 16.5. No signs of any infection. INR today is at 2.9 and the patient was given warfarin yesterday. As far as is LFTs, there is still elevated with a AST of 1200 to an ALT of 987. The bilirubin is at 5.8 consistent with a cholestatic picture with a alkaline phosphatase of 239. Serum cortisols at 27. Objective - Vital Signs Vital signs: Vital Signs Temp 97.1 F L 12/31/20 08:00 Pulse 80 12/31/20 08:00 Resp 15 12/31/20 08:00 BP 122/108 12/31/20 08:00 Pulse Ox 100 12/31/20 08:00 Intake & Output 12/30/20 12/31/20 12/31/20 18:59 06:59 18:59 Intake Total 220 500 75 Output Total 315 205 25 Balance -95 295 50 Weight 95.8 kg Intake: IV 500 75 Sodium Chloride 0.9% 1, 75 000 ml @ 75 mls/hr IV . [id number] [facility] Rx#:[id number] Sodium Chloride 0.9% 500 500 ml 500 ml @ 999 mls/hr IV .Q31M ONE Rx#:[id number] Oral 220 Output: Urine 315 205 25 Other: Voiding Method Indwelling Catheter - Exam Mild respiratory distress with increased respiratory rate, oriented 3. The patient is currently on BiPAP at a pressure of 12/6 cm of water and FiO2 of 40% PEEP is quite suggestive the mechanical ventilator. Minute ventilation is currently at 10.6 L per minute. HEENT examination is grossly unremarkable. Neck supple. Full range of motion. No adenopathy thyromegaly or neck vein distention. Cardiovascular examination reveals irregular rhythm rate. S1-S2 normal. No S3 or S4. No discernible murmur noted. The rhythm is irregular consistent with atrial fibrillation. There is also systolic ejection murmur grade 2/6 heard throughout the precordium. Lungs reveal diffuse bibasilar crackles. There is dullness at the bases. Scattered moderate rhonchi are noted. No wheezes appreciated. Overall, there is improvement in her entry bilaterally. He is post bilateral thoracentesis. Abdomen soft bowel sounds are heard. No masses or tenderness. Extremities are intact. No cyanosis or clubbing. 1+ edema is noted.There is adequate pulses in lower extremities bilaterally. Skin is without rash or lesion. Neurologic examination is brief but nonfocal. The patient is lethargic, sleepy yet arousable. He follows simple commands. Neurologic exam remains nonfocal. - Labs CBC & Chem 7: 12/31/20 03:39 12/31/20 03:39 Labs: Abnormal Lab Results - Last 24 Hours (Table) 12/30/20 12/30/20 12/31/20 Range/Units 04:32 11:22 00:46 WBC (3.8-10.6) k/uL RBC (4.30-5.90) m/uL Hgb (13.0-17.5) gm/dL Hct (39.0-53.0) % RDW (11.5-15.5) % PT (9.0-12.0) sec INR (<1.2) ABG pCO2 (35-45) mmHg ABG pO2 (83-108) mmHg ABG HCO3 (21-25) mmol/L ABG Total CO2 (19-24) mmol/L ABG O2 Saturation (94-97) % Sodium (137-145) mmol/L Potassium (3.5-5.1) mmol/L Chloride (98-107) mmol/L Carbon Dioxide (22-30) mmol/L BUN (9-20) mg/dL Creatinine (0.66-1.25) mg/dL Glucose (74-99) mg/dL POC Glucose (mg/dL) 134 H 135 H (75-99) mg/dL Calcium (8.4-10.2) mg/dL Total Bilirubin (0.2-1.3) mg/dL AST (17-59) U/L ALT (4-49) U/L Alkaline Phosphatase (38-126) U/L Total Protein (6.3-8.2) g/dL Albumin (3.5-5.0) g/dL CA 19-9 Antigen 68.0 H (0.0-34.9) U/mL 12/31/20 12/31/20 12/31/20 Range/Units 02:03 03:39 03:39 WBC 16.5 H (3.8-10.6) k/uL RBC 3.37 L (4.30-5.90) m/uL Hgb 10.4 L (13.0-17.5) gm/dL Hct 32.2 L (39.0-53.0) % RDW 16.6 H (11.5-15.5) % PT 27.5 H (9.0-12.0) sec INR 2.9 H (<1.2) ABG pCO2 (35-45) mmHg ABG pO2 (83-108) mmHg ABG HCO3 (21-25) mmol/L ABG Total CO2 (19-24) mmol/L ABG O2 Saturation (94-97) % Sodium (137-145) mmol/L Potassium (3.5-5.1) mmol/L Chloride (98-107) mmol/L Carbon Dioxide (22-30) mmol/L BUN (9-20) mg/dL Creatinine (0.66-1.25) mg/dL Glucose (74-99) mg/dL POC Glucose (mg/dL) 138 H (75-99) mg/dL Calcium (8.4-10.2) mg/dL Total Bilirubin (0.2-1.3) mg/dL AST (17-59) U/L ALT (4-49) U/L Alkaline Phosphatase (38-126) U/L Total Protein (6.3-8.2) g/dL Albumin (3.5-5.0) g/dL CA 19-9 Antigen (0.0-34.9) U/mL 12/31/20 12/31/20 12/31/20 Range/Units 03:39 07:05 07:40 WBC (3.8-10.6) k/uL RBC (4.30-5.90) m/uL Hgb (13.0-17.5) gm/dL Hct (39.0-53.0) % RDW (11.5-15.5) % PT (9.0-12.0) sec INR (<1.2) ABG pCO2 24 L (35-45) mmHg ABG pO2 129 H (83-108) mmHg ABG HCO3 16 L (21-25) mmol/L ABG Total CO2 16 L (19-24) mmol/L ABG O2 Saturation 99.8 H (94-97) % Sodium 125 L (137-145) mmol/L Potassium 5.8 H (3.5-5.1) mmol/L Chloride 96 L (98-107) mmol/L Carbon Dioxide 10 L (22-30) mmol/L BUN 77 H (9-20) mg/dL Creatinine 2.75 H (0.66-1.25) mg/dL Glucose 121 H (74-99) mg/dL POC Glucose (mg/dL) 144 H (75-99) mg/dL Calcium 7.6 L (8.4-10.2) mg/dL Total Bilirubin 5.8 H (0.2-1.3) mg/dL AST 1302 H (17-59) U/L ALT 987 H (4-49) U/L Alkaline Phosphatase 236 H (38-126) U/L Total Protein 5.5 L (6.3-8.2) g/dL Albumin 2.8 L (3.5-5.0) g/dL CA 19-9 Antigen (0.0-34.9) U/mL Assessment and Plan Plan: 1 Acute hypoxemic respiratory failure, likely on the basis of fluid overload/pleural effusions. The patient is post bilateral thoracentesis. The patient had a total of 650 mL of fluid aspirated from the right and 1.2 L from the left. Chest exit showed no evidence of any pneumothorax. There is some residual atelectatic changes. No evidence of pneumonia. Based on development of an acute kidney injury and hypotension, the patient went into further respiratory distress and the patient is currently on BiPAP for respiratory support at a pressure of 12/6 with an FiO2 of 40%. 2 CAD and the patient is post four-vessel bypass grafting, with discharged from the hospital on December 25. Patient had an 11 day hospital stay. Echocardiogram showed a moderate concentric LVH in addition to mildly impaired left a ejection fraction of around 45-50%. No significant valvular abnormalities. No significant pulmonary hypertension. 3 History of atrial fibrillation. Recurrent cardiac rhythm is still atrial fibrillation with a controlled rate INR is at 2.9. 4 History of diabetes mellitus. 5 Hyperlipidemia. 6 Hypertension. 7 BPH 8 acute kidney injury , with worsening of the renal function and creatinine is up 2.7. Consider obstructive uropathy. The Barrow catheter was within the prostate and appropriate positioning of the catheter was done. Renal function was monitored. 9 acute transaminitis secondary to above, LFTs elevated, and a declining course 10 nonspecific elevation of the lipase, consider pancreatitis 11 hyponatremia 12 metabolic acidosis a combination of anion and non-anion gap metabolic acidosis 13 hypertension currently on low-dose norepinephrine infusion for blood pressure control. Consider hypovolemia and the patient responded nicely to IV fluids. Plan: Continue IV fluids with normal state rate of 75 mL's an hour Replace bicarb deficit with a total of 100 mg of sodium bicarb Given 1 g of calcium Continue BiPAP for respiratory support Continue norepinephrine infusion Repeat blood gases and electrolytes at around noontime No Coumadin today and we'll monitor the INR Cardiac rhythm is still atrial fibrillation Ultrasound the kidneys to rule out hydronephrosis Urine analysis and urine cultures and would hold on antibiotic treatment for now Keep the patient ICU continue to follow. Condition is critical at this point in time. Is a critically care evaluation that was done and more than 30 minutes. Time with Patient: Greater than 30
[2020-12-31] MEDS: ALBUMIN HUMAN 25% 50 ML in EMPTY BAG 1 BAG IVPB SCH ×2 (08:56→10:04)
[2020-12-31] MEDS: IPRATROPIUM-ALBUTEROL 3 ML NEB INHALATION SCH ×4 (09:16→19:30)
--- NOTE | 2020-12-31 09:16 | US ---
EXAMINATION TYPE: US kidneys/renal and bladder DATE OF EXAM: 12/31/2020 COMPARISON: CT scan 12/30/2020 CLINICAL HISTORY: renal failure. Abnormal labs. ICU patient. Patient has bladder temple. EXAM MEASUREMENTS: Right Kidney: 10.2 x 5.0 x 5.0 cm Left Kidney: 11.3 x 4.8 x 4.8 cm Right Kidney: No hydronephrosis or masses seen Left Kidney: No hydronephrosis or masses seen, limited visualization due to patient position Bladder: not well seen Bilateral Jets not seen due to temple IMPRESSION: Limited assessment left kidney demonstrates no definite hydronephrosis or nephrolithiasis on today's exam. CT demonstrated renal calculus not well seen on ultrasound.
--- NOTE | 2020-12-31 09:31 | P.PN ---
Subjective Progress Note Date: 12/31/20 Principal diagnosis: Shortness of breath, bilateral pleural effusions, elevated LFTs, YVETTE. Previous medical history of coronary artery disease status post PCI to the LAD in 2005 a nd subsequent 4 vessel CABG on 12/16/2020, previously preserved left ventricular function, chronic atrial fibrillation on Coumadin for anticoagulation with supratherapeutic INR on admission, status post exclusion of the left atrial appendage, hypertension, hyperlipidemia, diet controlled diabetes, obstructive sleep apnea on home CPAP, previous pituitary tumor, never smoker, prior daily wine consumption, BPH with urinary retention after surgery requiring reinsertion of Temple catheter The patient was seen and examined this morning with Dr. Edmond laying in bed. Yesterday he had right sided thoracentesis draining 650 mL followed by left sided thoracentesis draining 1200 mL bloody fluid. In addition, he had abdominal CT demonstrating temple catheter balloon withing the prostate, temple was advanced with immediate drainage of 1400 mL urine. Subsequently he was transferred to [address] [place] [address]. Unfortunately he became very hypotensive with complaints of dizziness, was given 1 liter IV fluids and tranferred back to ICU, started on IV levofed. This morning he is lying in bed on bipap, on low dose levo, urine output 25-30 mL/hr. BUN/creatinine as well as LFTs elevated again this morning, likely from hypoperfusion during hypotensive. Was seen with Dr. Edmond and Dr. Cartagena, lytes replaced, urine culture and procalcitonin ordered, will repeat lytes and ABG this afternoon. No complaints of surgical pain, no shortness of breath at this time while on bipap. Cardizem discontinued, will hold lopressor and coumadin today. Patient's updated this morning by Dr. Edmond, all questions answered. Objective - Vital Signs Vital signs: Vital Signs Temp 97.1 F L 12/31/20 08:00 Pulse 80 12/31/20 08:00 Resp 15 12/31/20 08:00 BP 122/108 12/31/20 08:00 Pulse Ox 100 12/31/20 08:00 Intake & Output 12/30/20 12/31/20 12/31/20 18:59 06:59 18:59 Intake Total 220 500 75 Output Total 315 205 25 Balance -95 295 50 Weight 95.8 kg Intake: IV 500 75 Sodium Chloride 0.9% 1, 75 000 ml @ 75 mls/hr IV . [id number] [facility] Rx#:[id number] Sodium Chloride 0.9% 500 500 ml 500 ml @ 999 mls/hr IV .Q31M ONE Rx#:[id number] Oral 220 Output: Urine 315 205 25 Other: Voiding Method Indwelling Catheter - Exam CONSTITUTIONAL: Appears comfortable on bipap RESPIRATORY: Lungs sounds diminished bilaterally in the bases. Respirations even, nonlabored on bipap, FiO2 40%, IPAP 12, EPAP 6 with oxygen saturation 100%. CARDIOVASCULAR: S1, S2 present. Irregular rate and rhythm, controlled atrial fibrillation on telemetry. Sternum stable. Palpable peripheral pulses bilaterally. Trace generalized edema still present present. No calf pain or tenderness noted. Heart hugger, antiembolism stockings, SCDs present. GASTROINTESTINAL: Abdomen soft, nontender, slightly distended. Active bowel sounds present 4 quadrants. Currently NPO due to bipap GENITOURINARY: Temple present draining concentrated yellow urine. Output overnight 25-30 mL per hour INTEGUMENTARY: Skin is warm and dry. Anterior chest incision well approximated. NEUROLOGIC: Cranial nerves II through XII intact MUSKULOSKELETAL: Able to move all extremities, strength equal bilaterally, generalized weakness PSYCHIATRIC: Alert and oriented to person place and time, appropriate affect, intact judgment and insight - Allied health notes Allied health notes reviewed: nursing - Labs CBC & Chem 7: 12/31/20 03:39 12/31/20 03:39 Labs: Abnormal Lab Results - Last 24 Hours (Table) 12/30/20 12/30/20 12/31/20 Range/Units 04:32 11:22 00:46 WBC (3.8-10.6) k/uL RBC (4.30-5.90) m/uL Hgb (13.0-17.5) gm/dL Hct (39.0-53.0) % RDW (11.5-15.5) % PT (9.0-12.0) sec INR (<1.2) ABG pCO2 (35-45) mmHg ABG pO2 (83-108) mmHg ABG HCO3 (21-25) mmol/L ABG Total CO2 (19-24) mmol/L ABG O2 Saturation (94-97) % Sodium (137-145) mmol/L Potassium (3.5-5.1) mmol/L Chloride (98-107) mmol/L Carbon Dioxide (22-30) mmol/L BUN (9-20) mg/dL Creatinine (0.66-1.25) mg/dL Glucose (74-99) mg/dL POC Glucose (mg/dL) 134 H 135 H (75-99) mg/dL Calcium (8.4-10.2) mg/dL Total Bilirubin (0.2-1.3) mg/dL AST (17-59) U/L ALT (4-49) U/L Alkaline Phosphatase (38-126) U/L Total Protein (6.3-8.2) g/dL Albumin (3.5-5.0) g/dL CA 19-9 Antigen 68.0 H (0.0-34.9) U/mL 12/31/20 12/31/20 12/31/20 Range/Units 02:03 03:39 03:39 WBC 16.5 H (3.8-10.6) k/uL RBC 3.37 L (4.30-5.90) m/uL Hgb 10.4 L (13.0-17.5) gm/dL Hct 32.2 L (39.0-53.0) % RDW 16.6 H (11.5-15.5) % PT 27.5 H (9.0-12.0) sec INR 2.9 H (<1.2) ABG pCO2 (35-45) mmHg ABG pO2 (83-108) mmHg ABG HCO3 (21-25) mmol/L ABG Total CO2 (19-24) mmol/L ABG O2 Saturation (94-97) % Sodium (137-145) mmol/L Potassium (3.5-5.1) mmol/L Chloride (98-107) mmol/L Carbon Dioxide (22-30) mmol/L BUN (9-20) mg/dL Creatinine (0.66-1.25) mg/dL Glucose (74-99) mg/dL POC Glucose (mg/dL) 138 H (75-99) mg/dL Calcium (8.4-10.2) mg/dL Total Bilirubin (0.2-1.3) mg/dL AST (17-59) U/L ALT (4-49) U/L Alkaline Phosphatase (38-126) U/L Total Protein (6.3-8.2) g/dL Albumin (3.5-5.0) g/dL CA 19-9 Antigen (0.0-34.9) U/mL 12/31/20 12/31/20 12/31/20 Range/Units 03:39 07:05 07:40 WBC (3.8-10.6) k/uL RBC (4.30-5.90) m/uL Hgb (13.0-17.5) gm/dL Hct (39.0-53.0) % RDW (11.5-15.5) % PT (9.0-12.0) sec INR (<1.2) ABG pCO2 24 L (35-45) mmHg ABG pO2 129 H (83-108) mmHg ABG HCO3 16 L (21-25) mmol/L ABG Total CO2 16 L (19-24) mmol/L ABG O2 Saturation 99.8 H (94-97) % Sodium 125 L (137-145) mmol/L Potassium 5.8 H (3.5-5.1) mmol/L Chloride 96 L (98-107) mmol/L Carbon Dioxide 10 L (22-30) mmol/L BUN 77 H (9-20) mg/dL Creatinine 2.75 H (0.66-1.25) mg/dL Glucose 121 H (74-99) mg/dL POC Glucose (mg/dL) 144 H (75-99) mg/dL Calcium 7.6 L (8.4-10.2) mg/dL Total Bilirubin 5.8 H (0.2-1.3) mg/dL AST 1302 H (17-59) U/L ALT 987 H (4-49) U/L Alkaline Phosphatase 236 H (38-126) U/L Total Protein 5.5 L (6.3-8.2) g/dL Albumin 2.8 L (3.5-5.0) g/dL CA 19-9 Antigen (0.0-34.9) U/mL - Imaging and Cardiology Chest x-ray: report reviewed, image reviewed Assessment and Plan Assessment: 1. Shortness of breath, improved 2. Elevated LFTs, likely from hepatic congestion secondary to heart failure, down trending 3. Bilateral pleural effusions, drained right 650 mL, left 1200 mL 12/30/20 4. YVETTE, possibly from obstructive uropathy 5. Coronary artery disease status post PCI to the LAD in 2005 and subsequent 4 vessel CABG on 12/16/2020 6. Previously preserved left ventricular function, mildly impaired left ventricular systolic function with EF 45-50% on current TTE 7. Chronic atrial fibrillation on Coumadin for anticoagulation with supratherapeutic INR on admission, status post exclusion of the left atrial appendage 8. History of hypertension, currently on IV levo for hypotension 9. History of hyperlipidemia, treated 10. Diet controlled diabetes, recent hemoglobin A1c 6.2% 11. Obstructive sleep apnea on home CPAP, was not on at [facility] 12. Previous pituitary tumor 13. Never smoker, preoperative FEV1 91% of predicted 14. Prior daily wine consumption 15. BPH with urinary retention after surgery requiring reinsertion of Temple catheter 16. Acute hypoxemic respiratory failure, likely from fluid overload 17. Metabolic acidosis Plan: 1. Continue aspirin. Hold BB due to hypotension. Hold statin until liver enzymes returned to normal 2. Hold Cardizem due to hypotension, no coumadin today 3. Wean levo as tolerated 4. Wean O2 as tolerated. Encourage incentive spirometry is 10 times every hour while awake. Bronchodilators, BiPAP per pulmonology 5. Increase activity, ambulate as tolerated. PT/OT consulted. Patient needs much encouragement to get up to ambulate 6. Will monitor daily labs and x-rays. Will give 1 gm calcium gluconate and 2 amps NaHCO3. Will obtain lactic acid, procalcitonin, urine culture, repeat lytes and abg this afternoon 7. Will hold off on antibiotics for now per Dr. Cartagena 8. Continue sternal precautions 9. Medical management of other comorbidities per primary care service 10. updated today by Dr. Edmond 11. More recommendations to follow Time with Patient: Greater than 30
[2020-12-31] MEDS: MIDODRINE 5 MG TAB PO SCH ×3 (09:36→17:34)
[2020-12-31] MEDS: TAMSULOSIN 0.4 MG CAP.ER.24H PO SCH (09:36)
[2020-12-31] MEDS: FUROSEMIDE 40 MG TAB PO SCH (09:37)
[2020-12-31] MEDS: METOPROLOL TARTRATE 25 MG TAB PO SCH ×2 (09:39→22:00)
[2020-12-31] MEDS: LIDOCAINE 5% PATCH TOPICAL SCH (10:11)
[2020-12-31] MEDS: SODIUM CHLORIDE IV SCH ×2 (11:25)
[2020-12-31] MEDS: SOD BICARB IV SCH ×2 (11:25)
[2020-12-31 11:46] LABS: Glucose,Whole Blood 143 mg/dL (75-99)
--- NOTE | 2020-12-31 11:51 | PN ---
PROGRESS NOTE Patient is seen for followup for acute kidney injury. It appears that patient's catheter was not in his bladder. He had bladder distention noted on the CT scan. The Barrow was replaced and patient has had increased urine output. This morning his blood pressure has been low and he is noted to be significantly acidotic. Patient has been maintained on oral Lasix. On examination today, he is currently on BiPAP. Blood pressure is 111/65, heart rate 87 per minute. He is afebrile. EXAMINATION OF THE HEART: S1 and S2. EXAMINATION OF LUNGS: Decreased breath sounds at the bases. Minimal basal crackles heard. Abdomen is soft, distended, non-tender. Examination of lower extremities shows edema 1+ bilaterally. HEEL SEAT POUNDER EXAM: Grossly intact. Labs show sodium 125, potassium 5.8, chloride 96. CO2 is 10, BUN 77, creatinine 2.75, hemoglobin 10.4 g/dL. Lactic acid was 4.1. ASSESSMENT: 1. Acute kidney injury; appears to be obstructive uropathy with the balloon not in the bladder. Currently with repositioning of the Barrow catheter, urine output is maintained. Blood pressure remains on the lower side. Patient is on a small dose of Levophed. He did receive this morning dose of p.o. Lasix. His overall respiratory status is not significantly worse; therefore we can continue with that for now. 2. Severe metabolic acidosis associated with lactic acidosis and renal failure. Will start bicarb drip. 3. Mild volume overload. 4. Hypervolemic hyponatremia, worsened with urine retention. Repeat sodium this evening. The bicarb drip will be placed in half-normal saline. This should help with the hyponatremia. 5. Hyperkalemia associated with acute kidney injury, urine retention. Expect improvement with repositioning of the Barrow catheter. PLAN: Start bicarb drip. Repeat electrolytes this evening. MMODL / IJN: [id number] /
[2020-12-31 12:44] LABS: ABG Base Excess -7.2 mmol/L; ABG HCO3 17 mmol/L (21-25); ABG PCO2 24 mmHg (35-45); ABG PH 7.45 (7.35-7.45); ABG PO2 143 mmHg (83-108); ABG TCO2 18 mmol/L (19-24); Allen Test Performed? Yes
[2020-12-31 12:49] LABS: Appearance,Urine Turbid (Clear); Bacteria,Urine Rare /hpf; Bilirubin,Urine Negative (Negative); Blood,Urine Large (Negative); Color,Urine Dark Brown; Glucose,Urine (UA) Negative (Negative); Hyaline Casts,Urine 167 /lpf (0-2); Ketones,Urine Negative (Negative); Leukocyte Esterase,Urine Large (Negative); Mucus,Urine Moderate /hpf; Nitrite,Urine Negative (Negative); Protein,Urine 1+ (Negative); RBC,Urine 134 /hpf (0-5); Specific Gravity,Urine 1.016 (1.001-1.035); Squamous Epithelial Cell,Urine 6 /hpf (0-4); WBC,Urine 54 /hpf (0-5)
[2020-12-31 13:02] LABS: Calcium 7.9 mg/dL (8.4-10.2)
--- NOTE | 2020-12-31 13:06 | P.PN ---
Subjective This is a pleasant 80-year-old male past medical history significant coronary artery disease s/p PCI to LAD 2005 and 4 vessel CABG on 12/16/20, chronic persistent atrial fibrillation on coumadin, hypertension, type 2 diabetes, dyslipidemia, obstructive sleep apnea, family history of coronary artery disease. He follows in the office with Dr. Mullins. We have been asked to see in consultation for congestive heart failure. Patient presented to the hospital on 12/27/20 with worsening shortness of breath, fatigue and tiredness at home. Patient was recent discharged from the hospital after CABG to [facility] for cardiac recovery program. Echocardiogram 12/28/20, which revealed EF 45-50%, mild to moderate mitral regurgitation, and mild tricuspid regurgitation. He was found to have elevated LFTs, bilateral pleural effusions, and acute kidney injury. 12/30 Patient underwent bilateral thoracentesis, 650mL removed from the right and 1200mL removed from left. Abdominal CT revealed temple catheter balloon withing the prostate, temple was advanced with immediate drainage of 1400 mL urine. Patient was stabilized and transferred to . 12/31/20: Overnight patient became hypotensive, complaints of dizziness and shortness of breath, he was given 1L of IV fluids, started on Levophed and was transferred back to the ICU. Patient seen and examined in the ICU. He is currently on Bipap, On Levophed at 0.5mg/hr. Laboratory data review WBC 16.5, hemoglobin 10.4, platelets 282, sodium 125, potassium 5.8, BUN 77, serum creatinine 2.75, AST 1302, ALT 987, alkaline phosphatase 236, INR 2.9. Telemetry, indicates atrial fibrillation , rates currently controlled . He's currently maintained on aspirin 81 mg daily, Lasix by mouth 40 mg daily, metoprolol titrate 25 mg twice a day, midodrine 10 mg 3 times a day, IV Levo, Coumadin PHYSICAL EXAMINATION Blood pressure 120/72, heart rate 70, afebrile CONSTITUTIONAL: No apparent distress. CHEST EXAMINATION: Lungs diminished bilaterally anteriorly to auscultation. HEART EXAMINATION: Irregular rate and rhythm. S1, S2 heard. Systolic murmur at apex ABDOMEN: Soft, nontender. Positive bowel sounds. EXTREMITIES: 2+ peripheral pulses, generalized upper and lower extremity edema present : Temple placed with dark yellow urine. NEUROLOGIC EXAMINATION: Alert, oriented x 3. ASSESSMENT Shortness of breath Acute hypoxic respiratory failure Cardiomyopathy, mildly impaired EF 45-50% Elevated LFTs Acute Kidney Injury Bilateral pleural effusions s/p thoracentesis right 650 mL, left 1200 mL 12/30/20 Coronary artery disease s/p 4 vessel CABG on 12/16/20 and prior PCI to LAD 2006 Chronic persistent atrial fibrillation, on coumadin Hypertension Type 2 diabetes Dyslipidemia Obstructive sleep apnea PLAN -Continue PO Lasix 40mg daily -Statin on hold due to elevated LFTs -Cardizem and beta junito on hold due to hypotension -Continue aspirin -Wean O2 as tolerated -Increase activity as tolerated -We will continue to follow Nurse Practitioner note has been reviewed, I agree with a documented findings and plan of care. Patient was seen and examined Objective - Vital Signs Vital signs: Vital Signs Temp 97.1 F L 12/31/20 08:00 Pulse 123 H 12/31/20 12:00 Resp 25 H 12/31/20 12:00 BP 91/74 12/31/20 12:00 Pulse Ox 96 12/31/20 11:00 Intake & Output 12/30/20 12/31/20 12/31/20 18:59 06:59 18:59 Intake Total 220 500 375 Output Total 315 205 175 Balance -95 295 200 Weight 95.8 kg Intake: IV 500 375 Sodium Chloride 0.45% 1, 75 000 ml @ 75 mls/hr IV . [id number] BRENDA with Sod Bicarb Syr 8.4% (1 Meq/ml ) 150 ml Rx#:[id number] Sodium Chloride 0.9% 1, 300 000 ml @ 75 mls/hr IV . [id number] BREN[facility] Rx#:[id number] Sodium Chloride 0.9% 500 500 ml 500 ml @ 999 mls/hr IV .Q31M ONE Rx#:[id number] Oral 220 Output: Urine 315 205 175 Other: Voiding Method Indwelling Catheter Indwelling Catheter - Labs CBC & Chem 7: 12/31/20 03:39 12/31/20 03:39 Labs: Abnormal Lab Results - Last 24 Hours (Table) 12/30/20 12/31/20 12/31/20 Range/Units 04:32 00:46 02:03 WBC (3.8-10.6) k/uL RBC (4.30-5.90) m/uL Hgb (13.0-17.5) gm/dL Hct (39.0-53.0) % RDW (11.5-15.5) % PT (9.0-12.0) sec INR (<1.2) ABG pCO2 (35-45) mmHg ABG pO2 (83-108) mmHg ABG HCO3 (21-25) mmol/L ABG Total CO2 (19-24) mmol/L ABG O2 Saturation (94-97) % Sodium (137-145) mmol/L Potassium (3.5-5.1) mmol/L Chloride (98-107) mmol/L Carbon Dioxide (22-30) mmol/L BUN (9-20) mg/dL Creatinine (0.66-1.25) mg/dL Glucose (74-99) mg/dL POC Glucose (mg/dL) 135 H 138 H (75-99) mg/dL Plasma Lactic Acid Juan (0.7-2.0) mmol/L Calcium (8.4-10.2) mg/dL Total Bilirubin (0.2-1.3) mg/dL AST (17-59) U/L ALT (4-49) U/L Alkaline Phosphatase (38-126) U/L Total Protein (6.3-8.2) g/dL Albumin (3.5-5.0) g/dL CA 19-9 Antigen 68.0 H (0.0-34.9) U/mL 12/31/20 12/31/20 12/31/20 Range/Units 03:39 03:39 03:39 WBC 16.5 H (3.8-10.6) k/uL RBC 3.37 L (4.30-5.90) m/uL Hgb 10.4 L (13.0-17.5) gm/dL Hct 32.2 L (39.0-53.0) % RDW 16.6 H (11.5-15.5) % PT 27.5 H (9.0-12.0) sec INR 2.9 H (<1.2) ABG pCO2 (35-45) mmHg ABG pO2 (83-108) mmHg ABG HCO3 (21-25) mmol/L ABG Total CO2 (19-24) mmol/L ABG O2 Saturation (94-97) % Sodium 125 L (137-145) mmol/L Potassium 5.8 H (3.5-5.1) mmol/L Chloride 96 L (98-107) mmol/L Carbon Dioxide 10 L (22-30) mmol/L BUN 77 H (9-20) mg/dL Creatinine 2.75 H (0.66-1.25) mg/dL Glucose 121 H (74-99) mg/dL POC Glucose (mg/dL) (75-99) mg/dL Plasma Lactic Acid Juan (0.7-2.0) mmol/L Calcium 7.6 L (8.4-10.2) mg/dL Total Bilirubin 5.8 H (0.2-1.3) mg/dL AST 1302 H (17-59) U/L ALT 987 H (4-49) U/L Alkaline Phosphatase 236 H (38-126) U/L Total Protein 5.5 L (6.3-8.2) g/dL Albumin 2.8 L (3.5-5.0) g/dL CA 19-9 Antigen (0.0-34.9) U/mL 12/31/20 12/31/20 12/31/20 Range/Units 07:05 07:40 08:58 WBC (3.8-10.6) k/uL RBC (4.30-5.90) m/uL Hgb (13.0-17.5) gm/dL Hct (39.0-53.0) % RDW (11.5-15.5) % PT (9.0-12.0) sec INR (<1.2) ABG pCO2 24 L (35-45) mmHg ABG pO2 129 H (83-108) mmHg ABG HCO3 16 L (21-25) mmol/L ABG Total CO2 16 L (19-24) mmol/L ABG O2 Saturation 99.8 H (94-97) % Sodium (137-145) mmol/L Potassium (3.5-5.1) mmol/L Chloride (98-107) mmol/L Carbon Dioxide (22-30) mmol/L BUN (9-20) mg/dL Creatinine (0.66-1.25) mg/dL Glucose (74-99) mg/dL POC Glucose (mg/dL) 144 H (75-99) mg/dL Plasma Lactic Acid Juan 4.1 H* (0.7-2.0) mmol/L Calcium (8.4-10.2) mg/dL Total Bilirubin (0.2-1.3) mg/dL AST (17-59) U/L ALT (4-49) U/L Alkaline Phosphatase (38-126) U/L Total Protein (6.3-8.2) g/dL Albumin (3.5-5.0) g/dL CA 19-9 Antigen (0.0-34.9) U/mL 12/31/ Range/Units 11:45 WBC (3.8-10.6) k/uL RBC (4.30-5.90) m/uL Hgb (13.0-17.5) gm/dL Hct (39.0-53.0) % RDW (11.5-15.5) % PT (9.0-12.0) sec INR (<1.2) ABG pCO2 (35-45) mmHg ABG pO2 (83-108) mmHg ABG HCO3 (21-25) mmol/L ABG Total CO2 (19-24) mmol/L ABG O2 Saturation (94-97) % Sodium (137-145) mmol/L Potassium (3.5-5.1) mmol/L Chloride (98-107) mmol/L Carbon Dioxide (22-30) mmol/L BUN (9-20) mg/dL Creatinine (0.66-1.25) mg/dL Glucose (74-99) mg/dL POC Glucose (mg/dL) 143 H (75-99) mg/dL Plasma Lactic Acid Juan (0.7-2.0) mmol/L Calcium (8.4-10.2) mg/dL Total Bilirubin (0.2-1.3) mg/dL AST (17-59) U/L ALT (4-49) U/L Alkaline Phosphatase (38-126) U/L Total Protein (6.3-8.2) g/dL Albumin (3.5-5.0) g/dL CA 19-9 Antigen (0.0-34.9) U/mL
--- NOTE | 2020-12-31 13:24 | P.PN ---
Subjective Progress Note Date: 12/31/20 HISTORY OF PRESENT ILLNESS This is a 80-year-old male patient of Dr. Campos and Dr. Mullins with past medical history of chronic persistent atrial fibrillation, diabetes mellitus type 2, hypertension, hyperlipidemia, history of pituitary tumor resection, obstructive sleep apnea on BiPAP, gastroesophageal reflux disease, benign prostatic hypertrophy. He should also has history of coronary artery disease status post PCI to the LAD in 2005, heart catheterization in October 2020 found severe triple-vessel disease, subsequently admitted to the hospital for elective coronary artery bypass grafting 12/16 for four-vessel bypass MORAN to LAD, left radial artery from the aorta to the first obtuse marginal artery, reverse saphenous vein graft from the aorta to the second diagonal artery, reverse saphenous vein graft from the aorta to the posterior descending artery, endoscopic harvesting of the left radial artery, endoscopic harvesting of the left greater saphenous vein from ankle to the groin, exclusion of the left atrial appendage. During his last admission, he remained in ICU,Until December 24,, and after he was transferred to [facility] for cardiac recovery program. He has chronic atrial fibrillation, diabetes mellitus type 2, hypertension, hyperlipidemia, history of pituitary gland resection, obstructive sleep apnea, BPH with urinary retention, and delirium.. At the time of discharge, he was on Coumadin and Singulair Cardizem CD lisinopril Tylenol, he was taken off atenolol Vytorin lisinopril Imdur aspirin and nitro. -He comes back to the emergency room 2 days later, from [facility], secondary to shortness of breath, and edema. She also has worsening of her liver issues, with no visible jaundice. On ER presentation, he has indwelling Barrow catheter, there is no fever, no focal deficit, chest pain, he has shortness of breath, no vomiting, no diarrhea, no melena. In the emergency room, EKG shows atrial fibrillation heart rate of 79, no significant change compared to 927 EKG, double basic count is 15, hemoglobin of 9, sodium of 131, BUN 62 creatinine 4.7, CO2 of 19 total bili of 7.3, AST 949 ALT 881, alkaline phosphatase 411, troponin is stagnant at 0.14, and 0.148. Lactic acid level was 2.1, INR is 3.3 ultrasound of the gallbladder, shows common bile duct is normal, liver is enlarged, otherwise no other pathologies noted. Chest x-ray shows bilateral pleural effusion, basilar pulmonary infiltrates, which slightly is worse compared to previous, mild heart failure is possible, cardiomegaly some change patient is admitted to ICU with consultation to critical care medicine Dr. Vásquez, and cardiology. Chest ultrasound is ordered CMV and hepatitis panels ordered, patient would need a CAT scan of the abdomen, to eval for spleen gallbladder, Tylenol is discontinued, Lipitor is discontinued check for haptoglobin, reticulocyte count, and iron studies to evaluate portal system. 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 INR is 3. Sodium 132, potassium 4.1, chloride 100, CO2 18, BUN 65 and creatinine 1.81, blood sugar 119. Total bilirubin 6.5, AST 493, ALT 663, alkaline phosphatase 360. INR is 3.0. Magnesium 2.6. Lipase 473. CMV nonreactive 2 draws. Hepatitis panel negative. Repeat chest x-ray reveals patchy perihilar and basilar infiltrates/atelectasis as well as pleural effusions persist without significant interval change. Dr. Cartagena has ordered for vitamin K 2.5 mg and repeat INR with plan for thoracentesis once INR is und er 2. Patient is also followed by cardiology and Lasix decreased to 40 mg IV daily. Echocardiogram reveals EF of 45-60% with moderate concentric left hypertrophy, LA is severely dilated, mild to moderate mitral regurgitation, mild tricuspid regurgitation. Patient denies having any shortness of breath at rest. He denies abdominal pain, no nausea. He has had good urine output around 35 mL per hour. 12/30: Patient underwent right sided thoracentesis this morning with Dr. Cartagena with removal of approximately 650 ML's of turbid fluid. Repeat chest x- ray following procedure showed no complications. Patient was on BiPAP during the night and currently on O2 by nasal cannula at 3 L with pulse ox of 97%. Blood pressure 101/64, heart rate 81, afebrile. Patient has been seen and followed by nephrology for acute kidney injury secondary to hypotension and hypoperfusion. Plan is to continue diuresis in the patient, hold MAURA inhibitor, check cortisol level, monitor I&O's. Midodrine was increased yesterday. Repeat blood work today reveals WBC 12.2, hemoglobin 9.9 and platelet count 312. INR this morning was 1.9. Sodium 128, potassium 4.7, chloride 95, CO2 21, BUN 71 and creatinine 2.11. Blood sugars running between 109 and 134. Repeat liver function tests reveal total bilirubin 6, AST 28, ALT 535, alkaline phosphatase 295. Magnesium 2.8. Cortisol level came back at 27. Patient will be transferred to the cardiac stepdown unit. 12/31: Patient remains in the intensive care unit, today resting in bed on BiPAP. Patient became hypotensive overnight and required levo fed and was transferred back to the intensive care unit. Levo fed is currently off. Repeat blood work reveals WBC 16.5, hemoglobin 10.4, platelet count 282. Sodium 125, potassium 5.8, BUN 77 and creatinine 2.75. AST 1302, ALT 987, alkaline phosphatase 236. INR 2.9. Patient is followed by multiple consultants including cardiology, pulmonary medicine, nephrology and cardiothoracic surgery. Patient has been reaching 1000 on incentive spirometry. CAT scan of the abdomen and pelvis reveals nonobstructive left nephrolithiasis. Left pleural effusion difficult to exclude basilar pneumonia or atelectasis. There may be a posterior dependent he will. Cardiac. Coronary artery disease. Repeat chest x-ray reveals stable bibasilar infiltrate and small left pleural effusion. Renal ultrasound reveals limited assessment of left kidney demonstrate no definite hydronephrosis or hydroureter lysis. No hydronephrosis on the right kidney REVIEW OF SYSTEMS Constitutional: No fever, no chills, no night sweats. No weight change. No weakness, fatigue or lethargy. No daytime sleepiness. EENT: No headache. No blurred vision or double vision, no loss of vision. No loss of Hearing, no ringing in the ears, no dizziness. No nasal drainage or congestion. No epistaxis. No sore throat. Lungs: Reports shortness of breath, cough, no sputum production. No wheezing. Reports dyspnea with exertion. Cardiovascular: No chest pain, no lower extremity edema. No palpitations. No paroxysmal nocturnal dyspnea. No orthopnea. No lightheadedness or dizziness. No syncopal episodes. Abdominal: No abdominal pain. No nausea, vomiting. No diarrhea. No constipation. No bloody or tarry stools.. No loss of appetite. Genitourinary: No dysuria, increased frequency, urgency. No urinary retention. Musculoskeletal: No myalgias. No muscle weakness, no gait dysfunction, no frequent falls. No back pain. No neck pain. Integumentary: No wounds, no lesions. No rash or pruritus. No unusual bruising. No change in hair or nails. Neurologic: No aphasia. No facial droop. No change in mentation. No head injury. No headache. No paralysis. No paresthesia. Psychiatric: No depression. No anxiety. No mood swings. Endocrine: No abnormal blood sugars. No weight change. PHYSICAL EXAMINATION Gen: This is a 80-year-old male. Patient is resting in bed. HEENT: Head is atraumatic, normocephalic. Pupils equal, round. Sclerae is icteric. Patient is severely hard of hearing NECK: Supple. No JVD. No lymphadenopathy. No thyromegaly. LUNGS: Diminished to the bilateral basis, improved to the right side. No intercostal retractions. HEART: Irregular rate and rhythm. No murmur. ABDOMEN: Soft. Bowel sounds are present. No masses. No tenderness. Barrow catheter draining holly urine. EXTREMITIES: 1+ bilateral pedal edema. No calf tenderness. NEUROLOGICAL: Patient is awake, alert and oriented x3. Cranial nerves 2 through 12 are grossly intact. ASSESSMENT AND PLAN 1. Acute hypoxic respiratory failure secondary to fluid overload and pleural effusions. Patient is status post right-sided thoracentesis, continue Lasix oral 40 mg daily, monitor I&O and daily weights, monitor renal function and electrolytes. 2. Severe coagulopathy, on Coumadin, with worsening of transaminitis, with jaundice, suspect hepatobiliary obstruction, gallstone pancreatitis however, and bile duct is normal, Lipitor and Tylenol was discontinued and held, Coumadin on hold. No GI consultation is available, till January 12, monitor liver function tests. INR to be monitored daily. Patient is status post vitamin K. 3. Acute kidney injury secondary to hypoperfusion, hepatorenal syndrome, obstructive uropathy with balloon not in the bladder. Consult with nephrology appreciated. Avoid nephrotoxic agents. 4. Metabolic acidosis secondary to acute kidney injury. 5. Coronary artery disease status post 4 vessel CABG 12/16. Continue current management per cardio thoracic surgery. Continue aspirin 81 mg daily, Lipitor on hold, Lopressor 50 mg twice daily 6. Chronic persistent atrial fibrillation. Hold Lopressor, Cardizem due to hypotension. Coumadin is on hold. 7. Acute hypoxemic respiratory failure, patient's on BiPAP supplementation, followed closely by critical care medicine and pulmonary. 8. Hypovolemic hyponatremia. Continue to monitor sodium, consult with nephrology appreciated, bicarb drip. 9. Diabetes mellitus type 2. Continue with NovoLog scale before meals and at bedtime, blood sugar is controlled. 10. Hypertension. Hold Lopressor. 11. Hyperlipidemia. Hold Lipitor. 12. Urinary retention. Maintain Barrow catheter, continue Flomax or 0.5 mg daily. Barrow cath apparently was not in the bladder and has been replaced. 13. History of pituitary gland resection. 14. Obstructive sleep apnea on BiPAP. 15. Gastroesophageal reflux disease. 16. DVT prophylaxis. HA hose. 16. GI prophylaxis. Protonix. DISCHARGE PLAN Most likely return to [facility] for subacute rehab. Impression and plan of care have been directed as dictated by the signing physician. Erica Alfredo nurse practitioner acting as scribe for signing physician. Objective - Vital Signs Vital signs: Vital Signs Temp 97.1 F L 12/31/20 08:00 Pulse 77 12/31/20 09:27 Resp 16 12/31/20 08:00 BP 122/108 12/31/20 08:00 Pulse Ox 100 12/31/20 08:00 Intake & Output 12/30/20 12/31/20 12/31/20 18:59 06:59 18:59 Intake Total 220 500 150 Output Total 315 205 60 Balance -95 295 90 Weight 95.8 kg Intake: IV 500 150 Sodium Chloride 0.9% 1, 150 000 ml @ 75 mls/hr IV . [id number] [facility] Rx#:[id number] Sodium Chloride 0.9% 500 500 ml 500 ml @ 999 mls/hr IV .Q31M ONE Rx#:[id number] Oral 220 Output: Urine 315 205 60 Other: Voiding Method Indwelling Catheter Indwelling Catheter - Labs CBC & Chem 7: 12/31/20 03:39 12/31/20 03:39 Labs: Abnormal Lab Results - Last 24 Hours (Table) 12/30/20 12/30/20 12/31/20 Range/Units 04:32 11:22 00:46 WBC (3.8-10.6) k/uL RBC (4.30-5.90) m/uL Hgb (13.0-17.5) gm/dL Hct (39.0-53.0) % RDW (11.5-15.5) % PT (9.0-12.0) sec INR (<1.2) ABG pCO2 (35-45) mmHg ABG pO2 (83-108) mmHg ABG HCO3 (21-25) mmol/L ABG Total CO2 (19-24) mmol/L ABG O2 Saturation (94-97) % Sodium (137-145) mmol/L Potassium (3.5-5.1) mmol/L Chloride (98-107) mmol/L Carbon Dioxide (22-30) mmol/L BUN (9-20) mg/dL Creatinine (0.66-1.25) mg/dL Glucose (74-99) mg/dL POC Glucose (mg/dL) 134 H 135 H (75-99) mg/dL Plasma Lactic Acid Juan (0.7-2.0) mmol/L Calcium (8.4-10.2) mg/dL Total Bilirubin (0.2-1.3) mg/dL AST (17-59) U/L ALT (4-49) U/L Alkaline Phosphatase (38-126) U/L Total Protein (6.3-8.2) g/dL Albumin (3.5-5.0) g/dL CA 19-9 Antigen 68.0 H (0.0-34.9) U/mL 12/31/20 12/31/20 12/31/20 Range/Units 02:03 03:39 03:39 WBC 16.5 H (3.8-10.6) k/uL RBC 3.37 L (4.30-5.90) m/uL Hgb 10.4 L (13.0-17.5) gm/dL Hct 32.2 L (39.0-53.0) % RDW 16.6 H (11.5-15.5) % PT 27.5 H (9.0-12.0) sec INR 2.9 H (<1.2) ABG pCO2 (35-45) mmHg ABG pO2 (83-108) mmHg ABG HCO3 (21-25) mmol/L ABG Total CO2 (19-24) mmol/L ABG O2 Saturation (94-97) % Sodium (137-145) mmol/L Potassium (3.5-5.1) mmol/L Chloride (98-107) mmol/L Carbon Dioxide (22-30) mmol/L BUN (9-20) mg/dL Creatinine (0.66-1.25) mg/dL Glucose (74-99) mg/dL POC Glucose (mg/dL) 138 H (75-99) mg/dL Plasma Lactic Acid Juan (0.7-2.0) mmol/L Calcium (8.4-10.2) mg/dL Total Bilirubin (0.2-1.3) mg/dL AST (17-59) U/L ALT (4-49) U/L Alkaline Phosphatase (38-126) U/L Total Protein (6.3-8.2) g/dL Albumin (3.5-5.0) g/dL CA 19-9 Antigen (0.0-34.9) U/mL 12/31/20 12/31/20 12/31/20 Range/Units 03:39 07:05 07:40 WBC (3.8-10.6) k/uL RBC (4.30-5.90) m/uL Hgb (13.0-17.5) gm/dL Hct (39.0-53.0) % RDW (11.5-15.5) % PT (9.0-12.0) sec INR (<1.2) ABG pCO2 24 L (35-45) mmHg ABG pO2 129 H (83-108) mmHg ABG HCO3 16 L (21-25) mmol/L ABG Total CO2 16 L (19-24) mmol/L ABG O2 Saturation 99.8 H (94-97) % Sodium 125 L (137-145) mmol/L Potassium 5.8 H (3.5-5.1) mmol/L Chloride 96 L (98-107) mmol/L Carbon Dioxide 10 L (22-30) mmol/L BUN 77 H (9-20) mg/dL Creatinine 2.75 H (0.66-1.25) mg/dL Glucose 121 H (74-99) mg/dL POC Glucose (mg/dL) 144 H (75-99) mg/dL Plasma Lactic Acid Juan (0.7-2.0) mmol/L Calcium 7.6 L (8.4-10.2) mg/dL Total Bilirubin 5.8 H (0.2-1.3) mg/dL AST 1302 H (17-59) U/L ALT 987 H (4-49) U/L Alkaline Phosphatase 236 H (38-126) U/L Total Protein 5.5 L (6.3-8.2) g/dL Albumin 2.8 L (3.5-5.0) g/dL CA 19-9 Antigen (0.0-34.9) U/mL 12/31/20 Range/Units 08:58 WBC (3.8-10.6) k/uL RBC (4.30-5.90) m/uL Hgb (13.0-17.5) gm/dL Hct (39.0-53.0) % RDW (11.5-15.5) % PT (9.0-12.0) sec INR (<1.2) ABG pCO2 (35-45) mmHg ABG pO2 (83-108) mmHg ABG HCO3 (21-25) mmol/L ABG Total CO2 (19-24) mmol/L ABG O2 Saturation (94-97) % Sodium (137-145) mmol/L Potassium (3.5-5.1) mmol/L Chloride (98-107) mmol/L Carbon Dioxide (22-30) mmol/L BUN (9-20) mg/dL Creatinine (0.66-1.25) mg/dL Glucose (74-99) mg/dL POC Glucose (mg/dL) (75-99) mg/dL Plasma Lactic Acid Juan 4.1 H* (0.7-2.0) mmol/L Calcium (8.4-10.2) mg/dL Total Bilirubin (0.2-1.3) mg/dL AST (17-59) U/L ALT (4-49) U/L Alkaline Phosphatase (38-126) U/L Total Protein (6.3-8.2) g/dL Albumin (3.5-5.0) g/dL CA 19-9 Antigen (0.0-34.9) U/mL
[2020-12-31 16:58] LABS: Glucose,Whole Blood 150 mg/dL (75-99)
[2020-12-31] MEDS: ASCORBIC ACID 500 MG TAB PO SCH (17:21)
[2020-12-31] MEDS: CHOLECALCIFEROL 25 MCG (1000 IU) TABLET PO SCH (17:21)
[2020-12-31] MEDS: CALCIUM CARBONATE 500 MG CHEWABLE PO SCH (17:21)
[2020-12-31] MEDS: ASPIRIN 81 MG PO SCH (17:22)
[2020-12-31] MEDS ORDERED: WARFARIN 0.5 MG TAB PO ONE (18:00)
[2020-12-31 19:49] LABS: ABG Base Excess -1.8 mmol/L; ABG HCO3 21 mmol/L (21-25); ABG Oxygen Saturation 98.8 % (94-97); ABG PCO2 26 mmHg (35-45); ABG PH 7.51 (7.35-7.45); ABG PO2 96 mmHg (83-108); ABG TCO2 22 mmol/L (19-24); Allen Test Performed? Yes
[2020-12-31] MEDS: MONTELUKAST 10 MG TAB PO SCH (22:00)
[2020-12-31] MEDS: SENNOSIDES-DOCUSATE SODIUM 1 EACH TAB PO SCH (22:00)
[2020-12-31] MEDS: LATANOPROST 0.005% OPHTH DROPS 2.5 ML BTL BOTH EYES SCH (22:00)
[2020-12-31 22:09] LABS: Glucose,Whole Blood 144 mg/dL (75-99)
[2021-01-01] MEDS ORDERED: SODIUM CHLORIDE 0.45% 1,000 ML with SODIUM BICARB (1 MEQ/ML) 150 ML IV SCH ×4 (00:29→17:25)
[2021-01-01] MEDS: NOREPINEPHRINE 4 MG in SODIUM CHLORIDE 0.9% 250 ML IV SCH ×2 (03:34→19:57)
[2021-01-01] MEDS: SOD BICARB IV SCH ×2 (03:57)
[2021-01-01] MEDS: SODIUM CHLORIDE IV SCH ×2 (03:57)
[2021-01-01 04:59] LABS: Anisocytosis Slight; Basophils % (A) 0 %; Eosinophils % (A) 0 %; HCT 32.6 % (39.0-53.0); HGB 10.3 gm/dL (13.0-17.5); Hypochromasia Marked; Lymphocytes # (A) 1.1 k/uL (1.0-4.8); Lymphocytes % (A) 11 %; MCH 30.2 pg (25.0-35.0); MCHC 31.6 g/dL (31.0-37.0); MCV 95.8 fL (80.0-100.0); Macrocytosis Slight; Mean Platelet Volume 7.9; Monocytes # (A) 0.9 k/uL (0-1.0); Monocytes % (A) 9 %; Neutrophils # (A) 7.9 k/uL (1.3-7.7); Neutrophils % (A) 78 %; Platelet Count 291 k/uL (150-450); Poikilocytosis Moderate; RDW 16.3 % (11.5-15.5); WBC 10.1 k/uL (3.8-10.6)
[2021-01-01 05:20] LABS: INR 2.7 (<1.2); Prothrombin Time 26.4 sec (9.0-12.0)
[2021-01-01 05:27] LABS: Calcium 7.7 mg/dL (8.4-10.2); Magnesium 2.8 mg/dL (1.6-2.3); Total Bilirubin 4.3 mg/dL (0.2-1.3)
[2021-01-01 05:49] LABS: Albumin 2.9 g/dL (3.5-5.0); Total Protein 5.2 g/dL (6.3-8.2)
[2021-01-01] MEDS: IPRATROPIUM-ALBUTEROL 3 ML NEB INHALATION SCH ×4 (06:12→21:08)
[2021-01-01] MEDS: PANTOPRAZOLE 40 MG TABLET PO SCH (06:18)
[2021-01-01 06:21] LABS: Glucose,Whole Blood 130 mg/dL (75-99)
[2021-01-01] MEDS ORDERED: bisacodyL 5 MG TABLET.DR PO STA (06:33)
[2021-01-01] MEDS: INSULIN ASPART (NovoLOG) 100 UNIT/ML VIAL SQ SCH ×4 (06:43→19:57)
[2021-01-01] MEDS: SODIUM CHLORIDE 0.9% 1,000 ML IV SCH ×2 (07:27→09:05)
--- NOTE | 2021-01-01 07:54 | P.PN ---
Subjective Progress Note Date: 01/01/21 Principal diagnosis: Shortness of breath, bilateral pleural effusions, elevated LFTs, YVETTE. 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 No complaints of surgical pain, denies shortness of breath, states he feels better than yesterday. Currently on 4 L nasal cannula with oxygen saturation in the mid to high 90s. Remains in atrial fibrillation, heart rate in the high 90s to low 100s, Cardizem stopped yesterday, Lopressor decreased due to hypotension. 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 Labwork reviewed this morning, kidney function slightly better, LFTs slightly better. Patient was placed on sodium bicarb continuous infusion yesterday, stopped this morning. Remains on IV Levophed for hypotension. White blood cell count done to 10.1 this morning, blood culture and urine culture pending. Procalcitonin yesterday 0.89, urinalysis demonstrates large leukocyte esterase with 54 WBCs and rare bacteria, 167 hyaline casts, negative nitrites. He did ambulate in the hallway yesterday a couple times a short distance. No other new concerns at this time. Objective - Vital Signs Vital signs: Vital Signs Temp 97.8 F 01/01/21 04:00 Pulse 156 H 01/01/21 07:00 Resp 16 01/01/21 07:00 BP 107/66 01/01/21 07:00 Pulse Ox 96 01/01/21 07:00 Intake & Output 12/31/20 01/01/21 01/01/21 18:59 06:59 18:59 Intake Total 1679 1083.793 75 Output Total 435 1195 100 Balance 1244 -111.207 -25 Intake: IV 825 900 75 Sodium Chloride 0.45% 1, 525 900 75 000 ml @ 75 mls/hr IV . [id number] BRENDA with Sod Bicarb Syr 8.4% (1 Meq/ml ) 150 ml Rx#:[id number] Sodium Chloride 0.9% 1, 300 000 ml @ 75 mls/hr IV . [id number] BRENDA Rx#:[id number] Intake, IV Titration 254 183.793 Amount Norepinephrine 4 mg In 254 183.793 Sodium Chloride 0.9% 250 ml @ 0.05 MCG/KG/MIN 18. 078 mls/hr IV .[id number] BRENDA Rx#:[id number] Oral 600 Output: Urine 435 1195 100 Other: Voiding Method Indwelling Catheter Indwelling Catheter - Exam CONSTITUTIONAL: Appears comfortable on 4 L nasal cannula RESPIRATORY: Lungs sounds diminished bilaterally in the bases. Respirations even, nonlabored. Currently on 4 L nasal cannula oxygen saturation 99%. Able to achieve 1000 mL on his incentive spirometer, strong cough CARDIOVASCULAR: S1, S2 present. Irregular rate and rhythm, atrial fibrillation on telemetry with heart rate in the high 90s to low 100. Sternum stable. Palpable peripheral pulses bilaterally. Trace generalized edema still present present. No calf pain or tenderness noted. Heart hugger, antiembolism stockings, SCDs present. GASTROINTESTINAL: Abdomen soft, nontender, slightly distended. Active bowel sounds present 4 quadrants. Tolerating minimal diet. Positive flatus, no bowel movement since admission. GENITOURINARY: Barrow present draining yellow urine. Output overnight 100-130 mL per hour, 1630 mL in the last 24 hours INTEGUMENTARY: Skin is warm and dry, still remains slightly jaundiced. Anterior chest incision well approximated. NEUROLOGIC: Cranial nerves II through XII intact MUSKULOSKELETAL: Able to move all extremities, strength equal bilaterally, generalized weakness PSYCHIATRIC: Alert and oriented to person place and time, appropriate affect, intact judgment and insight - Allied health notes Allied health notes reviewed: nursing - Labs CBC & Chem 7: 01/01/21 04:40 01/01/21 04:40 Labs: Abnormal Lab Results - Last 24 Hours (Table) 12/31/20 12/31/20 12/31/20 Range/Units 03:39 07:40 08:58 RBC (4.30-5.90) m/uL Hgb (13.0-17.5) gm/dL Hct (39.0-53.0) % RDW (11.5-15.5) % Neutrophils # (1.3-7.7) k/uL PT (9.0-12.0) sec INR (<1.2) ABG pH (7.35-7.45) ABG pCO2 24 L (35-45) mmHg ABG pO2 129 H (83-108) mmHg ABG HCO3 16 L (21-25) mmol/L ABG Total CO2 16 L (19-24) mmol/L ABG O2 Saturation 99.8 H (94-97) % Sodium (137-145) mmol/L Chloride (98-107) mmol/L Carbon Dioxide (22-30) mmol/L BUN (9-20) mg/dL Creatinine (0.66-1.25) mg/dL Glucose (74-99) mg/dL POC Glucose (mg/dL) (75-99) mg/dL Plasma Lactic Acid Juan 4.1 H* (0.7-2.0) mmol/L Calcium (8.4-10.2) mg/dL Magnesium (1.6-2.3) mg/dL Total Bilirubin (0.2-1.3) mg/dL AST (17-59) U/L ALT (4-49) U/L Alkaline Phosphatase (38-126) U/L Total Protein (6.3-8.2) g/dL Albumin (3.5-5.0) g/dL Procalcitonin 0.76 H (0.02-0.09) ng/mL Urine Protein (Negative) Urine Blood (Negative) Ur Leukocyte Esterase (Negative) Urine RBC (0-5) /hpf Urine WBC (0-5) /hpf Ur Squamous Epith Cells (0-4) /hpf Urine Bacteria (None) /hpf Hyaline Casts (0-2) /lpf Urine Mucus (None) /hpf 12/31/20 12/31/20 12/31/20 Range/Units 10:10 11:45 12:40 RBC (4.30-5.90) m/uL Hgb (13.0-17.5) gm/dL Hct (39.0-53.0) % RDW (11.5-15.5) % Neutrophils # (1.3-7.7) k/uL PT (9.0-12.0) sec INR (<1.2) ABG pH (7.35-7.45) ABG pCO2 (35-45) mmHg ABG pO2 (83-108) mmHg ABG HCO3 (21-25) mmol/L ABG Total CO2 (19-24) mmol/L ABG O2 Saturation (94-97) % Sodium (137-145) mmol/L Chloride (98-107) mmol/L Carbon Dioxide (22-30) mmol/L BUN (9-20) mg/dL Creatinine (0.66-1.25) mg/dL Glucose (74-99) mg/dL POC Glucose (mg/dL) 143 H (75-99) mg/dL Plasma Lactic Acid Juan 3.6 H* (0.7-2.0) mmol/L Calcium (8.4-10.2) mg/dL Magnesium (1.6-2.3) mg/dL Total Bilirubin (0.2-1.3) mg/dL AST (17-59) U/L ALT (4-49) U/L Alkaline Phosphatase (38-126) U/L Total Protein (6.3-8.2) g/dL Albumin (3.5-5.0) g/dL Procalcitonin (0.02-0.09) ng/mL Urine Protein 1+ H (Negative) Urine Blood Large H (Negative) Ur Leukocyte Esterase Large H (Negative) Urine RBC 134 H (0-5) /hpf Urine WBC 54 H (0-5) /hpf Ur Squamous Epith Cells 6 H (0-4) /hpf Urine Bacteria Rare H (None) /hpf Hyaline Casts 167 H (0-2) /lpf Urine Mucus Moderate H (None) /hpf 12/31/20 12/31/20 12/31/20 Range/Units 12:40 12:40 12:42 RBC (4.30-5.90) m/uL Hgb (13.0-17.5) gm/dL Hct (39.0-53.0) % RDW (11.5-15.5) % Neutrophils # (1.3-7.7) k/uL PT (9.0-12.0) sec INR (<1.2) ABG pH (7.35-7.45) ABG pCO2 24 L (35-45) mmHg ABG pO2 143 H (83-108) mmHg ABG HCO3 17 L (21-25) mmol/L ABG Total CO2 18 L (19-24) mmol/L ABG O2 Saturation 100.0 H (94-97) % Sodium 126 L (137-145) mmol/L Chloride 95 L (98-107) mmol/L Carbon Dioxide 16 L (22-30) mmol/L BUN 82 H (9-20) mg/dL Creatinine 2.79 H (0.66-1.25) mg/dL Glucose 128 H (74-99) mg/dL POC Glucose (mg/dL) (75-99) mg/dL Plasma Lactic Acid Juan (0.7-2.0) mmol/L Calcium 7.9 L (8.4-10.2) mg/dL Magnesium (1.6-2.3) mg/dL Total Bilirubin (0.2-1.3) mg/dL AST (17-59) U/L ALT (4-49) U/L Alkaline Phosphatase (38-126) U/L Total Protein (6.3-8.2) g/dL Albumin (3.5-5.0) g/dL Procalcitonin 0.89 H (0.02-0.09) ng/mL Urine Protein (Negative) Urine Blood (Negative) Ur Leukocyte Esterase (Negative) Urine RBC (0-5) /hpf Urine WBC (0-5) /hpf Ur Squamous Epith Cells (0-4) /hpf Urine Bacteria (None) /hpf Hyaline Casts (0-2) /lpf Urine Mucus (None) /hpf 12/31/20 12/31/20 12/31/20 Range/Units 16:24 16:56 18:30 RBC (4.30-5.90) m/uL Hgb (13.0-17.5) gm/dL Hct (39.0-53.0) % RDW (11.5-15.5) % Neutrophils # (1.3-7.7) k/uL PT (9.0-12.0) sec INR (<1.2) ABG pH (7.35-7.45) ABG pCO2 (35-45) mmHg ABG pO2 (83-108) mmHg ABG HCO3 (21-25) mmol/L ABG Total CO2 (19-24) mmol/L ABG O2 Saturation (94-97) % Sodium (137-145) mmol/L Chloride (98-107) mmol/L Carbon Dioxide (22-30) mmol/L BUN (9-20) mg/dL Creatinine (0.66-1.25) mg/dL Glucose (74-99) mg/dL POC Glucose (mg/dL) 150 H (75-99) mg/dL Plasma Lactic Acid Juan 3.3 H* 3.3 H* (0.7-2.0) mmol/L Calcium (8.4-10.2) mg/dL Magnesium (1.6-2.3) mg/dL Total Bilirubin (0.2-1.3) mg/dL AST (17-59) U/L ALT (4-49) U/L Alkaline Phosphatase (38-126) U/L Total Protein (6.3-8.2) g/dL Albumin (3.5-5.0) g/dL Procalcitonin (0.02-0.09) ng/mL Urine Protein (Negative) Urine Blood (Negative) Ur Leukocyte Esterase (Negative) Urine RBC (0-5) /hpf Urine WBC (0-5) /hpf Ur Squamous Epith Cells (0-4) /hpf Urine Bacteria (None) /hpf Hyaline Casts (0-2) /lpf Urine Mucus (None) /hpf 12/31/20 12/31/20 01/01/21 Range/Units 19:43 22:07 04:40 RBC (4.30-5.90) m/uL Hgb (13.0-17.5) gm/dL Hct (39.0-53.0) % RDW (11.5-15.5) % Neutrophils # (1.3-7.7) k/uL PT 26.4 H (9.0-12.0) sec INR 2.7 H (<1.2) ABG pH 7.51 H (7.35-7.45) ABG pCO2 26 L (35-45) mmHg ABG pO2 (83-108) mmHg ABG HCO3 (21-25) mmol/L ABG Total CO2 (19-24) mmol/L ABG O2 Saturation 98.8 H (94-97) % Sodium (137-145) mmol/L Chloride (98-107) mmol/L Carbon Dioxide (22-30) mmol/L BUN (9-20) mg/dL Creatinine (0.66-1.25) mg/dL Glucose (74-99) mg/dL POC Glucose (mg/dL) 144 H (75-99) mg/dL Plasma Lactic Acid Juan (0.7-2.0) mmol/L Calcium (8.4-10.2) mg/dL Magnesium (1.6-2.3) mg/dL Total Bilirubin (0.2-1.3) mg/dL AST (17-59) U/L ALT (4-49) U/L Alkaline Phosphatase (38-126) U/L Total Protein (6.3-8.2) g/dL Albumin (3.5-5.0) g/dL Procalcitonin (0.02-0.09) ng/mL Urine Protein (Negative) Urine Blood (Negative) Ur Leukocyte Esterase (Negative) Urine RBC (0-5) /hpf Urine WBC (0-5) /hpf Ur Squamous Epith Cells (0-4) /hpf Urine Bacteria (None) /hpf Hyaline Casts (0-2) /lpf Urine Mucus (None) /hpf 01/01/21 01/01/21 01/01/21 Range/Units 04:40 04:40 06:20 RBC 3.40 L (4.30-5.90) m/uL Hgb 10.3 L (13.0-17.5) gm/dL Hct 32.6 L (39.0-53.0) % RDW 16.3 H (11.5-15.5) % Neutrophils # 7.9 H (1.3-7.7) k/uL PT (9.0-12.0) sec INR (<1.2) ABG pH (7.35-7.45) ABG pCO2 (35-45) mmHg ABG pO2 (83-108) mmHg ABG HCO3 (21-25) mmol/L ABG Total CO2 (19-24) mmol/L ABG O2 Saturation (94-97) % Sodium 130 L (137-145) mmol/L Chloride 94 L (98-107) mmol/L Carbon Dioxide (22-30) mmol/L BUN 76 H (9-20) mg/dL Creatinine 2.38 H (0.66-1.25) mg/dL Glucose 132 H (74-99) mg/dL POC Glucose (mg/dL) 130 H (75-99) mg/dL Plasma Lactic Acid Juan (0.7-2.0) mmol/L Calcium 7.7 L (8.4-10.2) mg/dL Magnesium 2.8 H (1.6-2.3) mg/dL Total Bilirubin 4.3 H (0.2-1.3) mg/dL AST 824 H (17-59) U/L ALT 920 H (4-49) U/L Alkaline Phosphatase 210 H (38-126) U/L Total Protein 5.2 L (6.3-8.2) g/dL Albumin 2.9 L (3.5-5.0) g/dL Procalcitonin (0.02-0.09) ng/mL Urine Protein (Negative) Urine Blood (Negative) Ur Leukocyte Esterase (Negative) Urine RBC (0-5) /hpf Urine WBC (0-5) /hpf Ur Squamous Epith Cells (0-4) /hpf Urine Bacteria (None) /hpf Hyaline Casts (0-2) /lpf Urine Mucus (None) /hpf Microbiology - Last 24 Hours (Table) 12/31/20 03:39 Blood Culture - Preliminary Blood No Growth after 24 hours 12/31/20 10:10 Urine Culture - Preliminary Urine,Voided - Imaging and Cardiology Chest x-ray: image reviewed Assessment and Plan Assessment: 1. Shortness of breath, improved 2. Elevated LFTs, likely from hepatic congestion secondary to heart failure, down trending 3. Bilateral pleural effusions, drained right 650 mL, left 1200 mL 12/30/20 4. YVETTE, possibly from obstructive uropathy, slightly improved today 5. Coronary artery disease status post PCI to the LAD in 2005 and subsequent 4 vessel CABG on 12/16/2020 6. Previously preserved left ventricular function, mildly impaired left ve ntricular systolic function with EF 45-50% on current TTE 7. Chronic atrial fibrillation on Coumadin for anticoagulation with supratherapeutic INR on admission, status post exclusion of the left atrial appendage 8. History of hypertension, currently on IV levo for hypotension 9. History of hyperlipidemia, treated 10. Diet controlled diabetes, recent hemoglobin A1c 6.2% 11. Obstructive sleep apnea on home CPAP, was not on at [facility] 12. Previous pituitary tumor 13. Never smoker, preoperative FEV1 91% of predicted 14. Prior daily wine consumption 15. 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 Acute hypoxemic respiratory failure, likely from fluid overload 17. Metabolic acidosis Plan: 1. Continue aspirin, low-dose beta junito. Hold statin until liver enzymes returned to normal 2. Cardizem discontinued due to hypotension, no coumadin today 3. Wean levo as tolerated, continue midodrine 4. Wean O2 as tolerated. Encourage incentive spirometry is 10 times every hour while awake. Bronchodilators, BiPAP per pulmonology 5. Increase activity, ambulate as tolerated. PT/OT consulted. Patient needs much encouragement to get up to ambulate 6. Will monitor daily labs and x-rays. Will give 1 gm calcium gluconate. 7. Avoid nephrotoxins, appreciate nephrology recommendations, Lasix per nephrology 8. Continue sternal precautions 9. Medical management of other comorbidities per primary care service 10. More recommendations to follow Time with Patient: Greater than 30
[2021-01-01] MEDS ORDERED: CALCIUM GLUCONATE 1 GM in SODIUM CHLORIDE 0.9% 100 ML IVPB ONE (08:00)
--- NOTE | 2021-01-01 08:36 | XR ---
EXAMINATION TYPE: XR chest 1V portable DATE OF EXAM: 01/01/2021 HISTORY: Shortness of breath. COMPARISON: 12/31/2020 TECHNIQUE: Single view of the chest is submitted. FINDINGS: Demonstrated are scattered senescent parenchymal change. Pleural parenchymal density left lower lobe persists and appears to be somewhat improved. The heart is stable. Hilar and mediastinal structures are within normal limits. Degenerative changes are seen of the dorsal spine. IMPRESSION: 1. Pleural parenchymal density left lower lobe persists and appears to be somewhat improved.
[2021-01-01] MEDS: TAMSULOSIN 0.4 MG CAP.ER.24H PO SCH (08:55)
[2021-01-01] MEDS: MIDODRINE 5 MG TAB PO SCH ×3 (08:55→17:23)
--- NOTE | 2021-01-01 10:26 | P.PN ---
Subjective Progress Note Date: 01/01/21 Principal diagnosis: Bilateral pleural effusion The patient is a pleasant 80-year-old gentleman with a past medical history significant for coronary artery disease and status post CABG as well as permanent atrial fibrillation as well as multiple comorbid conditions was admitted to the hospital with increasing shortness of breath. The patient was seen this morning. He seems to be doing slightly better. Hemodynamically he still requiring small doses of norepinephrine. He is on Lasix by mouth. The chest x-ray was repeated today and seems to be somewhat better. Coumadin is on hold because of the slightly elevated INR. Objective - Vital Signs Vital signs: Vital Signs Temp 95.8 F L 01/01/21 08:00 Pulse 137 H 01/01/21 09:00 Resp 10 L 01/01/21 09:00 BP 80/69 01/01/21 09:00 Pulse Ox 96 01/01/21 07:00 Intake & Output 12/31/20 01/01/21 01/01/21 18:59 06:59 18:59 Intake Total 1679 1083.793 535 Output Total 435 1195 220 Balance 1244 -111.207 315 Intake: IV 825 900 175 Sodium Chloride 0.45% 1, 525 900 175 000 ml @ 75 mls/hr IV . [id number] BRENDA with Sod Bicarb Syr 8.4% (1 Meq/ml ) 150 ml Rx#:[id number] Sodium Chloride 0.9% 1, 300 000 ml @ 75 mls/hr IV . [id number] BRENDA Rx#:[id number] Intake, IV Titration 254 183.793 Amount Norepinephrine 4 mg In 254 183.793 Sodium Chloride 0.9% 250 ml @ 0.05 MCG/KG/MIN 18. 078 mls/hr IV .[id number] BRENDA Rx#:[id number] Oral 600 360 Output: Urine 435 1195 220 Other: Voiding Method Indwelling Catheter Indwelling Catheter Indwelling Catheter - Constitutional General appearance: Present: no acute distress - Respiratory Respiratory: bilateral: diminished - Cardiovascular Rhythm: irregularly irregular Heart sounds: normal: S1, S2 - Labs CBC & Chem 7: 01/01/21 04:40 01/01/21 04:40 Labs: Abnormal Lab Results - Last 24 Hours (Table) 12/31/20 12/31/20 12/31/20 Range/Units 03:39 10:10 11:45 RBC (4.30-5.90) m/uL Hgb (13.0-17.5) gm/dL Hct (39.0-53.0) % RDW (11.5-15.5) % Neutrophils # (1.3-7.7) k/uL PT (9.0-12.0) sec INR (<1.2) ABG pH (7.35-7.45) ABG pCO2 (35-45) mmHg ABG pO2 (83-108) mmHg ABG HCO3 (21-25) mmol/L ABG Total CO2 (19-24) mmol/L ABG O2 Saturation (94-97) % Sodium (137-145) mmol/L Chloride (98-107) mmol/L Carbon Dioxide (22-30) mmol/L BUN (9-20) mg/dL Creatinine (0.66-1.25) mg/dL Glucose (74-99) mg/dL POC Glucose (mg/dL) 143 H (75-99) mg/dL Plasma Lactic Acid Juan (0.7-2.0) mmol/L Calcium (8.4-10.2) mg/dL Magnesium (1.6-2.3) mg/dL Total Bilirubin (0.2-1.3) mg/dL AST (17-59) U/L ALT (4-49) U/L Alkaline Phosphatase (38-126) U/L Total Protein (6.3-8.2) g/dL Albumin (3.5-5.0) g/dL Procalcitonin 0.76 H (0.02-0.09) ng/mL Urine Protein 1+ H (Negative) Urine Blood Large H (Negative) Ur Leukocyte Esterase Large H (Negative) Urine RBC 134 H (0-5) /hpf Urine WBC 54 H (0-5) /hpf Ur Squamous Epith Cells 6 H (0-4) /hpf Urine Bacteria Rare H (None) /hpf Hyaline Casts 167 H (0-2) /lpf Urine Mucus Moderate H (None) /hpf 12/31/20 12/31/20 12/31/20 Range/Units 12:40 12:40 12:40 RBC (4.30-5.90) m/uL Hgb (13.0-17.5) gm/dL Hct (39.0-53.0) % RDW (11.5-15.5) % Neutrophils # (1.3-7.7) k/uL PT (9.0-12.0) sec INR (<1.2) ABG pH (7.35-7.45) ABG pCO2 (35-45) mmHg ABG pO2 (83-108) mmHg ABG HCO3 (21-25) mmol/L ABG Total CO2 (19-24) mmol/L ABG O2 Saturation (94-97) % Sodium 126 L (137-145) mmol/L Chloride 95 L (98-107) mmol/L Carbon Dioxide 16 L (22-30) mmol/L BUN 82 H (9-20) mg/dL Creatinine 2.79 H (0.66-1.25) mg/dL Glucose 128 H (74-99) mg/dL POC Glucose (mg/dL) (75-99) mg/dL Plasma Lactic Acid Juan 3.6 H* (0.7-2.0) mmol/L Calcium 7.9 L (8.4-10.2) mg/dL Magnesium (1.6-2.3) mg/dL Total Bilirubin (0.2-1.3) mg/dL AST (17-59) U/L ALT (4-49) U/L Alkaline Phosphatase (38-126) U/L Total Protein (6.3-8.2) g/dL Albumin (3.5-5.0) g/dL Procalcitonin 0.89 H (0.02-0.09) ng/mL Urine Protein (Negative) Urine Blood (Negative) Ur Leukocyte Esterase (Negative) Urine RBC (0-5) /hpf Urine WBC (0-5) /hpf Ur Squamous Epith Cells (0-4) /hpf Urine Bacteria (None) /hpf Hyaline Casts (0-2) /lpf Urine Mucus (None) /hpf 12/31/20 12/31/20 12/31/20 Range/Units 12:42 16:24 16:56 RBC (4.30-5.90) m/uL Hgb (13.0-17.5) gm/dL Hct (39.0-53.0) % RDW (11.5-15.5) % Neutrophils # (1.3-7.7) k/uL PT (9.0-12.0) sec INR (<1.2) ABG pH (7.35-7.45) ABG pCO2 24 L (35-45) mmHg ABG pO2 143 H (83-108) mmHg ABG HCO3 17 L (21-25) mmol/L ABG Total CO2 18 L (19-24) mmol/L ABG O2 Saturation 100.0 H (94-97) % Sodium (137-145) mmol/L Chloride (98-107) mmol/L Carbon Dioxide (22-30) mmol/L BUN (9-20) mg/dL Creatinine (0.66-1.25) mg/dL Glucose (74-99) mg/dL POC Glucose (mg/dL) 150 H (75-99) mg/dL Plasma Lactic Acid Juan 3.3 H* (0.7-2.0) mmol/L Calcium (8.4-10.2) mg/dL Magnesium (1.6-2.3) mg/dL Total Bilirubin (0.2-1.3) mg/dL AST (17-59) U/L ALT (4-49) U/L Alkaline Phosphatase (38-126) U/L Total Protein (6.3-8.2) g/dL Albumin (3.5-5.0) g/dL Procalcitonin (0.02-0.09) ng/mL Urine Protein (Negative) Urine Blood (Negative) Ur Leukocyte Esterase (Negative) Urine RBC (0-5) /hpf Urine WBC (0-5) /hpf Ur Squamous Epith Cells (0-4) /hpf Urine Bacteria (None) /hpf Hyaline Casts (0-2) /lpf Urine Mucus (None) /hpf 12/31/20 12/31/20 12/31/20 Range/Units 18:30 19:43 22:07 RBC (4.30-5.90) m/uL Hgb (13.0-17.5) gm/dL Hct (39.0-53.0) % RDW (11.5-15.5) % Neutrophils # (1.3-7.7) k/uL PT (9.0-12.0) sec INR (<1.2) ABG pH 7.51 H (7.35-7.45) ABG pCO2 26 L (35-45) mmHg ABG pO2 (83-108) mmHg ABG HCO3 (21-25) mmol/L ABG Total CO2 (19-24) mmol/L ABG O2 Saturation 98.8 H (94-97) % Sodium (137-145) mmol/L Chloride (98-107) mmol/L Carbon Dioxide (22-30) mmol/L BUN (9-20) mg/dL Creatinine (0.66-1.25) mg/dL Glucose (74-99) mg/dL POC Glucose (mg/dL) 144 H (75-99) mg/dL Plasma Lactic Acid Juan 3.3 H* (0.7-2.0) mmol/L Calcium (8.4-10.2) mg/dL Magnesium (1.6-2.3) mg/dL Total Bilirubin (0.2-1.3) mg/dL AST (17-59) U/L ALT (4-49) U/L Alkaline Phosphatase (38-126) U/L Total Protein (6.3-8.2) g/dL Albumin (3.5-5.0) g/dL Procalcitonin (0.02-0.09) ng/mL Urine Protein (Negative) Urine Blood (Negative) Ur Leukocyte Esterase (Negative) Urine RBC (0-5) /hpf Urine WBC (0-5) /hpf Ur Squamous Epith Cells (0-4) /hpf Urine Bacteria (None) /hpf Hyaline Casts (0-2) /lpf Urine Mucus (None) /hpf 01/01/21 01/01/21 01/01/21 Range/Units 04:40 04:40 04:40 RBC 3.40 L (4.30-5.90) m/uL Hgb 10.3 L (13.0-17.5) gm/dL Hct 32.6 L (39.0-53.0) % RDW 16.3 H (11.5-15.5) % Neutrophils # 7.9 H (1.3-7.7) k/uL PT 26.4 H (9.0-12.0) sec INR 2.7 H (<1.2) ABG pH (7.35-7.45) ABG pCO2 (35-45) mmHg ABG pO2 (83-108) mmHg ABG HCO3 (21-25) mmol/L ABG Total CO2 (19-24) mmol/L ABG O2 Saturation (94-97) % Sodium 130 L (137-145) mmol/L Chloride 94 L (98-107) mmol/L Carbon Dioxide (22-30) mmol/L BUN 76 H (9-20) mg/dL Creatinine 2.38 H (0.66-1.25) mg/dL Glucose 132 H (74-99) mg/dL POC Glucose (mg/dL) (75-99) mg/dL Plasma Lactic Acid Juan (0.7-2.0) mmol/L Calcium 7.7 L (8.4-10.2) mg/dL Magnesium 2.8 H (1.6-2.3) mg/dL Total Bilirubin 4.3 H (0.2-1.3) mg/dL AST 824 H (17-59) U/L ALT 920 H (4-49) U/L Alkaline Phosphatase 210 H (38-126) U/L Total Protein 5.2 L (6.3-8.2) g/dL Albumin 2.9 L (3.5-5.0) g/dL Procalcitonin (0.02-0.09) ng/mL Urine Protein (Negative) Urine Blood (Negative) Ur Leukocyte Esterase (Negative) Urine RBC (0-5) /hpf Urine WBC (0-5) /hpf Ur Squamous Epith Cells (0-4) /hpf Urine Bacteria (None) /hpf Hyaline Casts (0-2) /lpf Urine Mucus (None) /hpf 01/01/21 Range/Units 06:20 RBC (4.30-5.90) m/uL Hgb (13.0-17.5) gm/dL Hct (39.0-53.0) % RDW (11.5-15.5) % Neutrophils # (1.3-7.7) k/uL PT (9.0-12.0) sec INR (<1.2) ABG pH (7.35-7.45) ABG pCO2 (35-45) mmHg ABG pO2 (83-108) mmHg ABG HCO3 (21-25) mmol/L ABG Total CO2 (19-24) mmol/L ABG O2 Saturation (94-97) % Sodium (137-145) mmol/L Chloride (98-107) mmol/L Carbon Dioxide (22-30) mmol/L BUN (9-20) mg/dL Creatinine (0.66-1.25) mg/dL Glucose (74-99) mg/dL POC Glucose (mg/dL) 130 H (75-99) mg/dL Plasma Lactic Acid Juan (0.7-2.0) mmol/L Calcium (8.4-10.2) mg/dL Magnesium (1.6-2.3) mg/dL Total Bilirubin (0.2-1.3) mg/dL AST (17-59) U/L ALT (4-49) U/L Alkaline Phosphatase (38-126) U/L Total Protein (6.3-8.2) g/dL Albumin (3.5-5.0) g/dL Procalcitonin (0.02-0.09) ng/mL Urine Protein (Negative) Urine Blood (Negative) Ur Leukocyte Esterase (Negative) Urine RBC (0-5) /hpf Urine WBC (0-5) /hpf Ur Squamous Epith Cells (0-4) /hpf Urine Bacteria (None) /hpf Hyaline Casts (0-2) /lpf Urine Mucus (None) /hpf Microbiology - Last 24 Hours (Table) 12/31/20 03:39 Blood Culture - Preliminary Blood No Growth after 24 hours 12/31/20 10:10 Urine Culture - Preliminary Urine,Voided Assessment and Plan Assessment: Assessment #1 coronary artery disease and status post CABG #2 bilateral pleural effusion #3 mild cardiomyopathy #4 permanent atrial fibrillation #5 multiple comorbid conditions Plan #1 continue the current dose of Lasix by mouth #2 continue monitor the kidney function and electrolytes #3 continue oral anticoagulation and continue monitoring the INR #4 follow-up with the patient
--- NOTE | 2021-01-01 11:32 | P.PN ---
Subjective Progress Note Date: 01/01/21 HISTORY OF PRESENT ILLNESS This is a 80-year-old male patient of Dr. Campos and Dr. Mullins with past medical history of chronic persistent atrial fibrillation, diabetes mellitus type 2, hypertension, hyperlipidemia, history of pituitary tumor resection, obstructive sleep apnea on BiPAP, gastroesophageal reflux disease, benign prostatic hypertrophy. He should also has history of coronary artery disease status post PCI to the LAD in 2005, heart catheterization in October 2020 found severe triple-vessel disease, subsequently admitted to the hospital for elective coronary artery bypass grafting 12/16 for four-vessel bypass MORAN to LAD, left radial artery from the aorta to the first obtuse marginal artery, reverse saphenous vein graft from the aorta to the second diagonal artery, reverse saphenous vein graft from the aorta to the posterior descending artery, endoscopic harvesting of the left radial artery, endoscopic harvesting of the left greater saphenous vein from ankle to the groin, exclusion of the left atrial appendage. During his last admission, he remained in ICU,Until December 24,, and after he was transferred to [facility] for cardiac recovery program. He has chronic atrial fibrillation, diabetes mellitus type 2, hypertension, hyperlipidemia, history of pituitary gland resection, obstructive sleep apnea, BPH with urinary retention, and delirium.. At the time of discharge, he was on Coumadin and Singulair Cardizem CD lisinopril Tylenol, he was taken off atenolol Vytorin lisinopril Imdur aspirin and nitro. -He comes back to the emergency room 2 days later, from [facility], secondary to shortness of breath, and edema. She also has worsening of her liver issues, with no visible jaundice. On ER presentation, he has indwelling Barrow catheter, there is no fever, no focal deficit, chest pain, he has shortness of breath, no vomiting, no diarrhea, no melena. In the emergency room, EKG shows atrial fibrillation heart rate of 79, no significant change compared to 927 EKG, double basic count is 15, hemoglobin of 9, sodium of 131, BUN 62 creatinine 4.7, CO2 of 19 total bili of 7.3, AST 949 ALT 881, alkaline phosphatase 411, troponin is stagnant at 0.14, and 0.148. Lactic acid level was 2.1, INR is 3.3 ultrasound of the gallbladder, shows common bile duct is normal, liver is enlarged, otherwise no other pathologies noted. Chest x-ray shows bilateral pleural effusion, basilar pulmonary infiltrates, which slightly is worse compared to previous, mild heart failure is possible, cardiomegaly some change patient is admitted to ICU with consultation to critical care medicine Dr. Vásquez, and cardiology. Chest ultrasound is ordered CMV and hepatitis panels ordered, patient would need a CAT scan of the abdomen, to eval for spleen gallbladder, Tylenol is discontinued, Lipitor is discontinued check for haptoglobin, reticulocyte count, and iron studies to evaluate portal system. 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 INR is 3. Sodium 132, potassium 4.1, chloride 100, CO2 18, BUN 65 and creatinine 1.81, blood sugar 119. Total bilirubin 6.5, AST 493, ALT 663, alkaline phosphatase 360. INR is 3.0. Magnesium 2.6. Lipase 473. CMV nonreactive 2 draws. Hepatitis panel negative. Repeat chest x-ray reveals patchy perihilar and basilar infiltrates/atelectasis as well as pleural effusions persist without significant interval change. Dr. Cartagena has ordered for vitamin K 2.5 mg and repeat INR with plan for thoracentesis once INR is und er 2. Patient is also followed by cardiology and Lasix decreased to 40 mg IV daily. Echocardiogram reveals EF of 45-60% with moderate concentric left hypertrophy, LA is severely dilated, mild to moderate mitral regurgitation, mild tricuspid regurgitation. Patient denies having any shortness of breath at rest. He denies abdominal pain, no nausea. He has had good urine output around 35 mL per hour. 12/30: Patient underwent right sided thoracentesis this morning with Dr. Cartagena with removal of approximately 650 ML's of turbid fluid. Repeat chest x- ray following procedure showed no complications. Patient was on BiPAP during the night and currently on O2 by nasal cannula at 3 L with pulse ox of 97%. Blood pressure 101/64, heart rate 81, afebrile. Patient has been seen and followed by nephrology for acute kidney injury secondary to hypotension and hypoperfusion. Plan is to continue diuresis in the patient, hold MAURA inhibitor, check cortisol level, monitor I&O's. Midodrine was increased yesterday. Repeat blood work today reveals WBC 12.2, hemoglobin 9.9 and platelet count 312. INR this morning was 1.9. Sodium 128, potassium 4.7, chloride 95, CO2 21, BUN 71 and creatinine 2.11. Blood sugars running between 109 and 134. Repeat liver function tests reveal total bilirubin 6, AST 28, ALT 535, alkaline phosphatase 295. Magnesium 2.8. Cortisol level came back at 27. Patient will be transferred to the cardiac stepdown unit. 12/31: Patient remains in the intensive care unit, today resting in bed on BiPAP. Patient became hypotensive overnight and required levo fed and was transferred back to the intensive care unit. Levo fed is currently off. Repeat blood work reveals WBC 16.5, hemoglobin 10.4, platelet count 282. Sodium 125, potassium 5.8, BUN 77 and creatinine 2.75. AST 1302, ALT 987, alkaline phosphatase 236. INR 2.9. Patient is followed by multiple consultants including cardiology, pulmonary medicine, nephrology and cardiothoracic surgery. Patient has been reaching 1000 on incentive spirometry. CAT scan of the abdomen and pelvis reveals nonobstructive left nephrolithiasis. Left pleural effusion difficult to exclude basilar pneumonia or atelectasis. There may be a posterior dependent he will. Cardiac. Coronary artery disease. Repeat chest x-ray reveals stable bibasilar infiltrate and small left pleural effusion. Renal ultrasound reveals limited assessment of left kidney demonstrate no definite hydronephrosis or hydroureter lysis. No hydronephrosis on the right kidney 01/01: Patient remains in the intensive care unit, resting in chair on nasal oxygen and appears to be comfortable. Pulse ox is 99%, blood pressure 80/65 and he is on levo fed. Lopressor was decreased by nephrology. Heart rate is 106, afebrile. Repeat blood work reveals WBC 10.1, hemoglobin 10.3, platelet count 291. INR 2.7. Sodium 130, potassium 4.0, chloride 94, CO2 25, BUN 76 and creatinine 2.38. Calcium 7.7. Magnesium 2.8. AST 824, ALT 920, alkaline p hosphatase 210. Patient received calcium gluconate 1 g this morning. Chest x-ray reveals pleural parenchymal density left lower lobe persistent appears to be somewhat improved. REVIEW OF SYSTEMS Constitutional: No fever, no chills, no night sweats. No weight change. Rep orts weakness, reports fatigue. No daytime sleepiness. EENT: No headache. No blurred vision or double vision, no loss of vision. No loss of Hearing, no ringing in the ears, no dizziness. No nasal drainage or congestion. No epistaxis. No sore throat. Lungs: Reports shortness of breath, cough, no sputum production. No wheezing. Reports dyspnea with exertion. Cardiovascular: No chest pain, no lower extremity edema. No palpitations. No paroxysmal nocturnal dyspnea. No orthopnea. No lightheadedness or dizziness. No syncopal episodes. Abdominal: No abdominal pain. No nausea, vomiting. No diarrhea. No constipation. No bloody or tarry stools. Reports loss of appetite. Genitourinary: No dysuria, increased frequency, urgency. Reported urinary retention. Musculoskeletal: No myalgias. Reports muscle weakness, no gait dysfunction, no frequent falls. No back pain. No neck pain. Integumentary: No wounds, no lesions. No rash or pruritus. No unusual bruising. No change in hair or nails. Neurologic: No aphasia. No facial droop. No change in mentation. No head injury. No headache. No paralysis. No paresthesia. Psychiatric: No depression. No anxiety. No mood swings. Endocrine: No abnormal blood sugars. No weight change. PHYSICAL EXAMINATION Gen: This is a 80-year-old male. Patient is resting in chair in the intensive care unit HEENT: Head is atraumatic, normocephalic. Pupils equal, round. Sclerae is icteric. Patient is severely hard of hearing NECK: Supple. No JVD. No lymphadenopathy. No thyromegaly. LUNGS: Diminished to the bilateral basis. No intercostal retractions. HEART: Irregular rate and rhythm. No murmur. ABDOMEN: Soft. Bowel sounds are present. No masses. No tenderness. Barrow catheter orange urine. EXTREMITIES: 1+ bilateral pedal edema. No calf tenderness. NEUROLOGICAL: Patient is awake, alert and oriented x3. Cranial nerves 2 through 12 are grossly intact. ASSESSMENT AND PLAN 1. Acute hypoxic respiratory failure secondary to fluid overload and pleural effusions. Patient is status post right-sided thoracentesis, continue Lasix oral 40 mg daily, monitor I&O and daily weights, monitor renal function and electrolytes. 2. Severe coagulopathy, on Coumadin, with worsening of transaminitis, with jaundice, suspect hepatobiliary obstruction, gallstone pancreatitis however, and bile duct is normal, Lipitor and Tylenol was discontinued and held, Coumadin on hold. No GI consultation is available, till January 12, monitor liver function tests. INR to be monitored daily. Patient is status post vitamin K. 3. Acute kidney injury and chronic kidney disease stage II secondary to hypoperfusion, hepatorenal syndrome, obstructive uropathy with balloon not in the bladder. Consult with nephrology appreciated. Avoid nephrotoxic agents. 4. Metabolic acidosis secondary to acute kidney injury. 5. Coronary artery disease status post 4 vessel CABG 12/16. Continue current management per cardio thoracic surgery. Continue aspirin 81 mg daily, Lipitor on hold, Lopressor 50 mg twice daily 6. Chronic persistent atrial fibrillation. Hold Lopressor, Cardizem due to hypotension. Coumadin is on hold. 7. Acute hypoxemic respiratory failure, patient's on BiPAP supplementation, followed closely by critical care medicine and pulmonary. 8. Hypovolemic hyponatremia. Continue to monitor sodium, consult with nephrology appreciated, bicarb drip. 9. Diabetes mellitus type 2. Continue with NovoLog scale before meals and at bedtime, blood sugar is controlled. 10. Hypertension. Hold Lopressor. 11. Hyperlipidemia. Hold Lipitor. 12. Urinary retention. Maintain Barrow catheter, continue Flomax or 0.5 mg daily. Barrow cath apparently was not in the bladder and has been replaced. 13. History of pituitary gland resection. 14. Obstructive sleep apnea on BiPAP. 15. Gastroesophageal reflux disease. 16. DVT prophylaxis. HA hose. 16. GI prophylaxis. Protonix. DISCHARGE PLAN Most likely return to [facility] for subacute rehab. Impression and plan of care have been directed as dictated by the signing physician. Erica Alfrdeo nurse practitioner acting as scribe for signing physician. Objective - Vital Signs Vital signs: Vital Signs Temp 97.8 F 01/01/21 04:00 Pulse 156 H 01/01/21 07:00 Resp 16 01/01/21 07:00 BP 107/66 01/01/21 07:00 Pulse Ox 96 01/01/21 07:00 Intake & Output 12/31/20 01/01/21 01/01/21 18:59 06:59 18:59 Intake Total 1679 1083.793 365 Output Total 435 1195 140 Balance 1244 -111.207 225 Intake: IV 825 900 125 Sodium Chloride 0.45% 1, 525 900 125 000 ml @ 75 mls/hr IV . [id number] BRENDA with Sod Bicarb Syr 8.4% (1 Meq/ml ) 150 ml Rx#:[id number] Sodium Chloride 0.9% 1, 300 000 ml @ 75 mls/hr IV . [id number] BRENDA Rx#:[id number] Intake, IV Titration 254 183.793 Amount Norepinephrine 4 mg In 254 183.793 Sodium Chloride 0.9% 250 ml @ 0.05 MCG/KG/MIN 18. 078 mls/hr IV .[id number] BRENDA Rx#:[id number] Oral 600 240 Output: Urine 435 1195 140 Other: Voiding Method Indwelling Catheter Indwelling Catheter - Labs CBC & Chem 7: 01/01/21 04:40 01/01/21 04:40 Labs: Abnormal Lab Results - Last 24 Hours (Table) 12/31/20 12/31/20 12/31/20 Range/Units 03:39 08:58 10:10 RBC (4.30-5.90) m/uL Hgb (13.0-17.5) gm/dL Hct (39.0-53.0) % RDW (11.5-15.5) % Neutrophils # (1.3-7.7) k/uL PT (9.0-12.0) sec INR (<1.2) ABG pH (7.35-7.45) ABG pCO2 (35-45) mmHg ABG pO2 (83-108) mmHg ABG HCO3 (21-25) mmol/L ABG Total CO2 (19-24) mmol/L ABG O2 Saturation (94-97) % Sodium (137-145) mmol/L Chloride (98-107) mmol/L Carbon Dioxide (22-30) mmol/L BUN (9-20) mg/dL Creatinine (0.66-1.25) mg/dL Glucose (74-99) mg/dL POC Glucose (mg/dL) (75-99) mg/dL Plasma Lactic Acid Juan 4.1 H* (0.7-2.0) mmol/L Calcium (8.4-10.2) mg/dL Magnesium (1.6-2.3) mg/dL Total Bilirubin (0.2-1.3) mg/dL AST (17-59) U/L ALT (4-49) U/L Alkaline Phosphatase (38-126) U/L Total Protein (6.3-8.2) g/dL Albumin (3.5-5.0) g/dL Procalcitonin 0.76 H (0.02-0.09) ng/mL Urine Protein 1+ H (Negative) Urine Blood Large H (Negative) Ur Leukocyte Esterase Large H (Negative) Urine RBC 134 H (0-5) /hpf Urine WBC 54 H (0-5) /hpf Ur Squamous Epith Cells 6 H (0-4) /hpf Urine Bacteria Rare H (None) /hpf Hyaline Casts 167 H (0-2) /lpf Urine Mucus Moderate H (None) /hpf 12/31/20 12/31/20 12/31/20 Range/Units 11:45 12:40 12:40 RBC (4.30-5.90) m/uL Hgb (13.0-17.5) gm/dL Hct (39.0-53.0) % RDW (11.5-15.5) % Neutrophils # (1.3-7.7) k/uL PT (9.0-12.0) sec INR (<1.2) ABG pH (7.35-7.45) ABG pCO2 (35-45) mmHg ABG pO2 (83-108) mmHg ABG HCO3 (21-25) mmol/L ABG Total CO2 (19-24) mmol/L ABG O2 Saturation (94-97) % Sodium 126 L (137-145) mmol/L Chloride 95 L (98-107) mmol/L Carbon Dioxide 16 L (22-30) mmol/L BUN 82 H (9-20) mg/dL Creatinine 2.79 H (0.66-1.25) mg/dL Glucose 128 H (74-99) mg/dL POC Glucose (mg/dL) 143 H (75-99) mg/dL Plasma Lactic Acid Juan 3.6 H* (0.7-2.0) mmol/L Calcium 7.9 L (8.4-10.2) mg/dL Magnesium (1.6-2.3) mg/dL Total Bilirubin (0.2-1.3) mg/dL AST (17-59) U/L ALT (4-49) U/L Alkaline Phosphatase (38-126) U/L Total Protein (6.3-8.2) g/dL Albumin (3.5-5.0) g/dL Procalcitonin (0.02-0.09) ng/mL Urine Protein (Negative) Urine Blood (Negative) Ur Leukocyte Esterase (Negative) Urine RBC (0-5) /hpf Urine WBC (0-5) /hpf Ur Squamous Epith Cells (0-4) /hpf Urine Bacteria (None) /hpf Hyaline Casts (0-2) /lpf Urine Mucus (None) /hpf 12/31/20 12/31/20 12/31/20 Range/Units 12:40 12:42 16:24 RBC (4.30-5.90) m/uL Hgb (13.0-17.5) gm/dL Hct (39.0-53.0) % RDW (11.5-15.5) % Neutrophils # (1.3-7.7) k/uL PT (9.0-12.0) sec INR (<1.2) ABG pH (7.35-7.45) ABG pCO2 24 L (35-45) mmHg ABG pO2 143 H (83-108) mmHg ABG HCO3 17 L (21-25) mmol/L ABG Total CO2 18 L (19-24) mmol/L ABG O2 Saturation 100.0 H (94-97) % Sodium (137-145) mmol/L Chloride (98-107) mmol/L Carbon Dioxide (22-30) mmol/L BUN (9-20) mg/dL Creatinine (0.66-1.25) mg/dL Glucose (74-99) mg/dL POC Glucose (mg/dL) (75-99) mg/dL Plasma Lactic Acid Juan 3.3 H* (0.7-2.0) mmol/L Calcium (8.4-10.2) mg/dL Magnesium (1.6-2.3) mg/dL Total Bilirubin (0.2-1.3) mg/dL AST (17-59) U/L ALT (4-49) U/L Alkaline Phosphatase (38-126) U/L Total Protein (6.3-8.2) g/dL Albumin (3.5-5.0) g/dL Procalcitonin 0.89 H (0.02-0.09) ng/mL Urine Protein (Negative) Urine Blood (Negative) Ur Leukocyte Esterase (Negative) Urine RBC (0-5) /hpf Urine WBC (0-5) /hpf Ur Squamous Epith Cells (0-4) /hpf Urine Bacteria (None) /hpf Hyaline Casts (0-2) /lpf Urine Mucus (None) /hpf 12/31/20 12/31/20 12/31/20 Range/Units 16:56 18:30 19:43 RBC (4.30-5.90) m/uL Hgb (13.0-17.5) gm/dL Hct (39.0-53.0) % RDW (11.5-15.5) % Neutrophils # (1.3-7.7) k/uL PT (9.0-12.0) sec INR (<1.2) ABG pH 7.51 H (7.35-7.45) ABG pCO2 26 L (35-45) mmHg ABG pO2 (83-108) mmHg ABG HCO3 (21-25) mmol/L ABG Total CO2 (19-24) mmol/L ABG O2 Saturation 98.8 H (94-97) % Sodium (137-145) mmol/L Chloride (98-107) mmol/L Carbon Dioxide (22-30) mmol/L BUN (9-20) mg/dL Creatinine (0.66-1.25) mg/dL Glucose (74-99) mg/dL POC Glucose (mg/dL) 150 H (75-99) mg/dL Plasma Lactic Acid Juan 3.3 H* (0.7-2.0) mmol/L Calcium (8.4-10.2) mg/dL Magnesium (1.6-2.3) mg/dL Total Bilirubin (0.2-1.3) mg/dL AST (17-59) U/L ALT (4-49) U/L Alkaline Phosphatase (38-126) U/L Total Protein (6.3-8.2) g/dL Albumin (3.5-5.0) g/dL Procalcitonin (0.02-0.09) ng/mL Urine Protein (Negative) Urine Blood (Negative) Ur Leukocyte Esterase (Negative) Urine RBC (0-5) /hpf Urine WBC (0-5) /hpf Ur Squamous Epith Cells (0-4) /hpf Urine Bacteria (None) /hpf Hyaline Casts (0-2) /lpf Urine Mucus (None) /hpf 12/31/20 01/01/21 01/01/21 Range/Units 22:07 04:40 04:40 RBC 3.40 L (4.30-5.90) m/uL Hgb 10.3 L (13.0-17.5) gm/dL Hct 32.6 L (39.0-53.0) % RDW 16.3 H (11.5-15.5) % Neutrophils # 7.9 H (1.3-7.7) k/uL PT 26.4 H (9.0-12.0) sec INR 2.7 H (<1.2) ABG pH (7.35-7.45) ABG pCO2 (35-45) mmHg ABG pO2 (83-108) mmHg ABG HCO3 (21-25) mmol/L ABG Total CO2 (19-24) mmol/L ABG O2 Saturation (94-97) % Sodium (137-145) mmol/L Chloride (98-107) mmol/L Carbon Dioxide (22-30) mmol/L BUN (9-20) mg/dL Creatinine (0.66-1.25) mg/dL Glucose (74-99) mg/dL POC Glucose (mg/dL) 144 H (75-99) mg/dL Plasma Lactic Acid Juan (0.7-2.0) mmol/L Calcium (8.4-10.2) mg/dL Magnesium (1.6-2.3) mg/dL Total Bilirubin (0.2-1.3) mg/dL AST (17-59) U/L ALT (4-49) U/L Alkaline Phosphatase (38-126) U/L Total Protein (6.3-8.2) g/dL Albumin (3.5-5.0) g/dL Procalcitonin (0.02-0.09) ng/mL Urine Protein (Negative) Urine Blood (Negative) Ur Leukocyte Esterase (Negative) Urine RBC (0-5) /hpf Urine WBC (0-5) /hpf Ur Squamous Epith Cells (0-4) /hpf Urine Bacteria (None) /hpf Hyaline Casts (0-2) /lpf Urine Mucus (None) /hpf 01/01/21 01/01/21 Range/Units 04:40 06:20 RBC (4.30-5.90) m/uL Hgb (13.0-17.5) gm/dL Hct (39.0-53.0) % RDW (11.5-15.5) % Neutrophils # (1.3-7.7) k/uL PT (9.0-12.0) sec INR (<1.2) ABG pH (7.35-7.45) ABG pCO2 (35-45) mmHg ABG pO2 (83-108) mmHg ABG HCO3 (21-25) mmol/L ABG Total CO2 (19-24) mmol/L ABG O2 Saturation (94-97) % Sodium 130 L (137-145) mmol/L Chloride 94 L (98-107) mmol/L Carbon Dioxide (22-30) mmol/L BUN 76 H (9-20) mg/dL Creatinine 2.38 H (0.66-1.25) mg/dL Glucose 132 H (74-99) mg/dL POC Glucose (mg/dL) 130 H (75-99) mg/dL Plasma Lactic Acid Juan (0.7-2.0) mmol/L Calcium 7.7 L (8.4-10.2) mg/dL Magnesium 2.8 H (1.6-2.3) mg/dL Total Bilirubin 4.3 H (0.2-1.3) mg/dL AST 824 H (17-59) U/L ALT 920 H (4-49) U/L Alkaline Phosphatase 210 H (38-126) U/L Total Protein 5.2 L (6.3-8.2) g/dL Albumin 2.9 L (3.5-5.0) g/dL Procalcitonin (0.02-0.09) ng/mL Urine Protein (Negative) Urine Blood (Negative) Ur Leukocyte Esterase (Negative) Urine RBC (0-5) /hpf Urine WBC (0-5) /hpf Ur Squamous Epith Cells (0-4) /hpf Urine Bacteria (None) /hpf Hyaline Casts (0-2) /lpf Urine Mucus (None) /hpf Microbiology - Last 24 Hours (Table) 12/31/20 03:39 Blood Culture - Preliminary Blood No Growth after 24 hours 12/31/20 10:10 Urine Culture - Preliminary Urine,Voided
[2021-01-01] MEDS: LIDOCAINE 5% PATCH TOPICAL SCH (11:36)
[2021-01-01] MEDS: FUROSEMIDE 40 MG TAB PO SCH (11:36)
[2021-01-01] MEDS ORDERED: METOPROLOL TARTRATE 12.5 MG TAB PO STA (11:36)
--- NOTE | 2021-01-01 11:36 | P.PN ---
Subjective Progress Note Date: 01/01/21 80-year-old male patient being seen in follow-up on 12/29/2020. He was hospitalized yesterday for acute hypoxic respiratory failure, shortness of breath, fluid overload. The patient is post four-vessel bypass surgery and the patient was discharged from the hospital on 12/25/2012 after a nonsmoker for t otal of 11 days. He has history of atrial fibrillation, diabetes mellitus, hypertension and hyperlipidemia and BPH. The patient had some issues with generalized weakness and debility postop. He continued to have some degree of shortness of breath with interval worsening. He came into the emergency department and was quite tachypneic and short of breath. He was transferred to the intensive care unit and he was off her diuretics and BiPAP therapy for restorative support. His BUN was at 62 with a creatinine of 1.7 and his chest x-ray showed cardiomegaly and bilateral pleural effusion. She was started on diuretics. The patient has chronic atrial fibrillation the patient was also discharged home on Lasix. The patient had a lactic acid level of 2.1 which dropped subsequently to 1.7. LFTs are normal with an elevated AST and ALT, improving and the troponin was 0.144 and 0.1. Respectively 2. Lipase level was 468. ProBNP level was 5370. COVID-19 testing was negative. Initial sodium level was 128. Creatinine was 1.68. INR was at 5.6 with a PT of 54 while the patient on Coumadin. Coumadin was maintained on hold.Echocardiogram showed a moderate concentric LVH in addition to mildly impaired left a ejection fraction of around 45-50%. No significant valvular abnormalities. No significant pulmonary hypertension. On today's evaluation, the patient seems to be a bit more alert and awake compared to yesterday. His at 12.6. Creatinine is still impaired with a creatinine of 1.8. The patient is receiving Lasix 40 mg IV every 8 hours. Her net fluid balance over the past 24 hours is -1.2 L. Chest x-ray from today still showing bilateral pleural effusions and MARKING OF THE PLEURAL EFFUSION HAS ALREADY BEEN DONE. THERE IS ALSO PATCHY PERIHILAR AND BASILAR ATELECTATIC CHANGES WITHOUT ANY MAJOR INTERVAL CHANGE COMPARED TO YESTERDAY. CARDIAC RHYTHM REMAINS IRREGULAR CONSISTENT WITH ATRIAL FIBRILLATION. The patient also has an INR of 3.0, slightly improved compared to yesterday. On today's evaluation of 12/30/2020, I'm seeing the patient for a follow-up. He is able to sit up on a chair. Is calm and comfortable. His breathing is still shallow and the follow-up chest x-ray from today showing bilateral pleural effusion slightly worse on the right. Ultrasound of markings of the right chest has been done. Meanwhile, the patient was given vitamin K yesterday total of 2.5 mg IV and the follow-up INR was down to 1.9. I'm going to proceed with a right-sided thoracentesis today. He is currently on 2 L about 2 by nasal cannula. He is using incentive spirometer and he is getting approximately thousand on his INRs. His cardiac rhythm is still atrial fibrillation. The patient remains on a combination of oral Cardizem and metoprolol for rate contro l. His antibiotic patient is currently on hold. He remains on IV Lasix and the patient is receiving Lasix 40 mg IV on a daily basis. Her net fluid balance over the past 24 hours has been -1.2 L. White cell count is at 4.2 with a hemoglobin of 9.9. His LFTs are essentially improving. AST is down to 280, ALT is down to 535, alkaline phosphatase is at 295. Patient is awake and alert. No other significant complaints otherwise for now. The patient is post four-vessel bypass surgery. The patient also has chronic atrial fibrillation, diabetes mellitus, hypertension and hyperlipidemia. Overall, he remains quite weak and somewhat debilitated. LFTs are improving, creatinine is at 2.1. On 12/31/2020, the patient is being seen for a follow-up. After being transferred to a medical floor, the patient got transferred back to the intensive care unit as the patient was becoming hypotensive. Note that the patient underwent bilateral thoracentesis yesterday were a total of 650 mL of fluid aspirated from the right and approximately 1.2 L of fluid was aspirated from the left. No complications following the procedure. No pneumothorax. The patient adequate expansion of both lungs. Overnight, the patient became hypotensive and he got transferred to the intensive care unit. Urine output was dropping. Note that there was a problem with his Barrow catheter with the balloon being within the prostate. Ex appropriate positioning Barrow catheter was done. The catheter was advanced and there was adequate amount of urine output initially and subsequently the urine output tapered off. For now, the patient is hypotensive. He received a total of 1.5 L of normal saline overnight. Currently is receiving normal saline at rate of 75 mL an hour. Urine output is no order of 20-30 mL an hour. The patient overnight was also placed on pressors and norepinephrine infusion is running at 0.06 mcg/kg per minute. The patient is also on BiPAP for respiratory support and the current settings are 12/5 cm of water with an FiO2 of 40%. The patient is calm and comfortable and the patient is able to generate adequate tidal volumes of 650 with a rate of 20 and a minute ventilation of 13.5. The blood work from today shows a component of anion gap metabolic acidosis. The serum bicarbonate is down to 10 and anion gap is up to 19. His sodium level has dropped down to 125. The patient has developed an acute kidney injury probably related to an obstructive uropathy. Creatinine is up to 2.75. He does have a bicarb deficit also. The blood gas showed a pH of 7.43 with a pCO2 of 24 and pO2 of 129 and this was done on the above-mentioned BiPAP settings. He is awake. He is alert. Surgical wound site is dry clean and intact. He is arousable and is following commands. Current pulse ox is 99% and the patient is able to follow commands and answer questions appropriately. White cell count at 16.5. No signs of any infection. INR today is at 2.9 and the patient was given warfarin yesterday. As far as is LFTs, there is still elevated with a AST of 1200 to an ALT of 987. The bilirubin is at 5.8 consistent with a cholestatic picture with a alkaline phosphatase of 239. Serum cortisols at 27. 01/01/2021, the patient is sitting up on a chair awake and alert. He spent the day off BiPAP and overnight he was off the BiPAP. Currently is on oxygen at 2 L per minute nasal cannula. Chest x-ray shows resolution of the right-sided pleural effusion, there is a small left-sided pleural effusion present. He is post bilateral thoracentesis. In terms of hemodynamics, he is on low dose of pressors and norepinephrine running at 0.085 mg/kg per minute. He remains in atrial fibrillation. Slightly tachycardic. He is off diuretics and is producing adequate amount of urine output. Creatinine is improving and is currently down to 2.3 with a sodium level improving at 130 and hemoglobin of 10.3. The patient is off Lasix. The patient will be started back on a low-dose metoprolol for rate control. His INR is therapeutic at 2.7 and the patient was not given warfarin yesterday. This will be held for today to. Lasix is currently on hold. The renal function continues to improve. Mentation is adequate. No focal neurological deficit. Barrow cath is in place. He is still weak and he needs aggressive rehabilitation. Objective - Vital Signs Vital signs: Vital Signs Temp 95.8 F L 01/01/21 08:00 Pulse 98 01/01/21 10:00 Resp 8 L 01/01/21 10:00 BP 88/65 01/01/21 10:00 Pulse Ox 99 01/01/21 10:00 Intake & Output 12/31/20 01/01/21 01/01/21 18:59 06:59 18:59 Intake Total 1679 1083.793 585 Output Total 435 1195 260 Balance 1244 -111.207 325 Intake: IV 825 900 225 Sodium Chloride 0.45% 1, 525 900 225 000 ml @ 75 mls/hr IV . [id number] BRENDA with Sod Bicarb Syr 8.4% (1 Meq/ml ) 150 ml Rx#:[id number] Sodium Chloride 0.9% 1, 300 000 ml @ 75 mls/hr IV . [id number] BRENDA Rx#:[id number] Intake, IV Titration 254 183.793 Amount Norepinephrine 4 mg In 254 183.793 Sodium Chloride 0.9% 250 ml @ 0.05 MCG/KG/MIN 18. 078 mls/hr IV .[id number] BRENDA Rx#:[id number] Oral 600 360 Output: Urine 435 1195 260 Other: Voiding Method Indwelling Catheter Indwelling Catheter Indwelling Catheter - Exam Mild respiratory distress with increased respiratory rate, oriented 3. The patient is currently on 2 l NC HEENT examination is grossly unremarkable. Neck supple. Full range of motion. No adenopathy thyromegaly or neck vein distention. Cardiovascular examination reveals irregular rhythm rate. S1-S2 normal. No S3 or S4. No discernible murmur noted. The rhythm is irregular consistent with atrial fibrillation. There is also systolic ejection murmur grade 2/6 heard throughout the precordium. Lungs reveal diffuse bibasilar crackles. There is dullness at the bases. Scattered moderate rhonchi are noted. No wheezes appreciated. Overall, there is improvement in her entry bilaterally. He is post bilateral thoracentesis. Abdomen soft bowel sounds are heard. No masses or tenderness. Extremities are intact. No cyanosis or clubbing. 1+ edema is noted.There is adequate pulses in lower extremities bilaterally. Skin is without rash or lesion. Neurologic examination is brief but nonfocal. The patient is lethargic, sleepy yet arousable. He follows simple commands. Neurologic exam remains nonfocal. - Labs CBC & Chem 7: 01/01/21 04:40 01/01/21 04:40 Labs: Abnormal Lab Results - Last 24 Hours (Table) 12/31/20 12/31/20 12/31/20 Range/Units 03:39 10:10 11:45 RBC (4.30-5.90) m/uL Hgb (13.0-17.5) gm/dL Hct (39.0-53.0) % RDW (11.5-15.5) % Neutrophils # (1.3-7.7) k/uL PT (9.0-12.0) sec INR (<1.2) ABG pH (7.35-7.45) ABG pCO2 (35-45) mmHg ABG pO2 (83-108) mmHg ABG HCO3 (21-25) mmol/L ABG Total CO2 (19-24) mmol/L ABG O2 Saturation (94-97) % Sodium (137-145) mmol/L Chloride (98-107) mmol/L Carbon Dioxide (22-30) mmol/L BUN (9-20) mg/dL Creatinine (0.66-1.25) mg/dL Glucose (74-99) mg/dL POC Glucose (mg/dL) 143 H (75-99) mg/dL Plasma Lactic Acid Juan (0.7-2.0) mmol/L Calcium (8.4-10.2) mg/dL Magnesium (1.6-2.3) mg/dL Total Bilirubin (0.2-1.3) mg/dL AST (17-59) U/L ALT (4-49) U/L Alkaline Phosphatase (38-126) U/L Total Protein (6.3-8.2) g/dL Albumin (3.5-5.0) g/dL Procalcitonin 0.76 H (0.02-0.09) ng/mL Urine Protein 1+ H (Negative) Urine Blood Large H (Negative) Ur Leukocyte Esterase Large H (Negative) Urine RBC 134 H (0-5) /hpf Urine WBC 54 H (0-5) /hpf Ur Squamous Epith Cells 6 H (0-4) /hpf Urine Bacteria Rare H (None) /hpf Hyaline Casts 167 H (0-2) /lpf Urine Mucus Moderate H (None) /hpf 12/31/20 12/31/20 12/31/20 Range/Units 12:40 12:40 12:40 RBC (4.30-5.90) m/uL Hgb (13.0-17.5) gm/dL Hct (39.0-53.0) % RDW (11.5-15.5) % Neutrophils # (1.3-7.7) k/uL PT (9.0-12.0) sec INR (<1.2) ABG pH (7.35-7.45) ABG pCO2 (35-45) mmHg ABG pO2 (83-108) mmHg ABG HCO3 (21-25) mmol/L ABG Total CO2 (19-24) mmol/L ABG O2 Saturation (94-97) % Sodium 126 L (137-145) mmol/L Chloride 95 L (98-107) mmol/L Carbon Dioxide 16 L (22-30) mmol/L BUN 82 H (9-20) mg/dL Creatinine 2.79 H (0.66-1.25) mg/dL Glucose 128 H (74-99) mg/dL POC Glucose (mg/dL) (75-99) mg/dL Plasma Lactic Acid Juan 3.6 H* (0.7-2.0) mmol/L Calcium 7.9 L (8.4-10.2) mg/dL Magnesium (1.6-2.3) mg/dL Total Bilirubin (0.2-1.3) mg/dL AST (17-59) U/L ALT (4-49) U/L Alkaline Phosphatase (38-126) U/L Total Protein (6.3-8.2) g/dL Albumin (3.5-5.0) g/dL Procalcitonin 0.89 H (0.02-0.09) ng/mL Urine Protein (Negative) Urine Blood (Negative) Ur Leukocyte Esterase (Negative) Urine RBC (0-5) /hpf Urine WBC (0-5) /hpf Ur Squamous Epith Cells (0-4) /hpf Urine Bacteria (None) /hpf Hyaline Casts (0-2) /lpf Urine Mucus (None) /hpf 12/31/20 12/31/20 12/31/20 Range/Units 12:42 16:24 16:56 RBC (4.30-5.90) m/uL Hgb (13.0-17.5) gm/dL Hct (39.0-53.0) % RDW (11.5-15.5) % Neutrophils # (1.3-7.7) k/uL PT (9.0-12.0) sec INR (<1.2) ABG pH (7.35-7.45) ABG pCO2 24 L (35-45) mmHg ABG pO2 143 H (83-108) mmHg ABG HCO3 17 L (21-25) mmol/L ABG Total CO2 18 L (19-24) mmol/L ABG O2 Saturation 100.0 H (94-97) % Sodium (137-145) mmol/L Chloride (98-107) mmol/L Carbon Dioxide (22-30) mmol/L BUN (9-20) mg/dL Creatinine (0.66-1.25) mg/dL Glucose (74-99) mg/dL POC Glucose (mg/dL) 150 H (75-99) mg/dL Plasma Lactic Acid Juan 3.3 H* (0.7-2.0) mmol/L Calcium (8.4-10.2) mg/dL Magnesium (1.6-2.3) mg/dL Total Bilirubin (0.2-1.3) mg/dL AST (17-59) U/L ALT (4-49) U/L Alkaline Phosphatase (38-126) U/L Total Protein (6.3-8.2) g/dL Albumin (3.5-5.0) g/dL Procalcitonin (0.02-0.09) ng/mL Urine Protein (Negative) Urine Blood (Negative) Ur Leukocyte Esterase (Negative) Urine RBC (0-5) /hpf Urine WBC (0-5) /hpf Ur Squamous Epith Cells (0-4) /hpf Urine Bacteria (None) /hpf Hyaline Casts (0-2) /lpf Urine Mucus (None) /hpf 12/31/20 12/31/20 12/31/20 Range/Units 18:30 19:43 22:07 RBC (4.30-5.90) m/uL Hgb (13.0-17.5) gm/dL Hct (39.0-53.0) % RDW (11.5-15.5) % Neutrophils # (1.3-7.7) k/uL PT (9.0-12.0) sec INR (<1.2) ABG pH 7.51 H (7.35-7.45) ABG pCO2 26 L (35-45) mmHg ABG pO2 (83-108) mmHg ABG HCO3 (21-25) mmol/L ABG Total CO2 (19-24) mmol/L ABG O2 Saturation 98.8 H (94-97) % Sodium (137-145) mmol/L Chloride (98-107) mmol/L Carbon Dioxide (22-30) mmol/L BUN (9-20) mg/dL Creatinine (0.66-1.25) mg/dL Glucose (74-99) mg/dL POC Glucose (mg/dL) 144 H (75-99) mg/dL Plasma Lactic Acid Juan 3.3 H* (0.7-2.0) mmol/L Calcium (8.4-10.2) mg/dL Magnesium (1.6-2.3) mg/dL Total Bilirubin (0.2-1.3) mg/dL AST (17-59) U/L ALT (4-49) U/L Alkaline Phosphatase (38-126) U/L Total Protein (6.3-8.2) g/dL Albumin (3.5-5.0) g/dL Procalcitonin (0.02-0.09) ng/mL Urine Protein (Negative) Urine Blood (Negative) Ur Leukocyte Esterase (Negative) Urine RBC (0-5) /hpf Urine WBC (0-5) /hpf Ur Squamous Epith Cells (0-4) /hpf Urine Bacteria (None) /hpf Hyaline Casts (0-2) /lpf Urine Mucus (None) /hpf 01/01/21 01/01/21 01/01/21 Range/Units 04:40 04:40 04:40 RBC 3.40 L (4.30-5.90) m/uL Hgb 10.3 L (13.0-17.5) gm/dL Hct 32.6 L (39.0-53.0) % RDW 16.3 H (11.5-15.5) % Neutrophils # 7.9 H (1.3-7.7) k/uL PT 26.4 H (9.0-12.0) sec INR 2.7 H (<1.2) ABG pH (7.35-7.45) ABG pCO2 (35-45) mmHg ABG pO2 (83-108) mmHg ABG HCO3 (21-25) mmol/L ABG Total CO2 (19-24) mmol/L ABG O2 Saturation (94-97) % Sodium 130 L (137-145) mmol/L Chloride 94 L (98-107) mmol/L Carbon Dioxide (22-30) mmol/L BUN 76 H (9-20) mg/dL Creatinine 2.38 H (0.66-1.25) mg/dL Glucose 132 H (74-99) mg/dL POC Glucose (mg/dL) (75-99) mg/dL Plasma Lactic Acid Juan (0.7-2.0) mmol/L Calcium 7.7 L (8.4-10.2) mg/dL Magnesium 2.8 H (1.6-2.3) mg/dL Total Bilirubin 4.3 H (0.2-1.3) mg/dL AST 824 H (17-59) U/L ALT 920 H (4-49) U/L Alkaline Phosphatase 210 H (38-126) U/L Total Protein 5.2 L (6.3-8.2) g/dL Albumin 2.9 L (3.5-5.0) g/dL Procalcitonin (0.02-0.09) ng/mL Urine Protein (Negative) Urine Blood (Negative) Ur Leukocyte Esterase (Negative) Urine RBC (0-5) /hpf Urine WBC (0-5) /hpf Ur Squamous Epith Cells (0-4) /hpf Urine Bacteria (None) /hpf Hyaline Casts (0-2) /lpf Urine Mucus (None) /hpf 01/01/21 Range/Units 06:20 RBC (4.30-5.90) m/uL Hgb (13.0-17.5) gm/dL Hct (39.0-53.0) % RDW (11.5-15.5) % Neutrophils # (1.3-7.7) k/uL PT (9.0-12.0) sec INR (<1.2) ABG pH (7.35-7.45) ABG pCO2 (35-45) mmHg ABG pO2 (83-108) mmHg ABG HCO3 (21-25) mmol/L ABG Total CO2 (19-24) mmol/L ABG O2 Saturation (94-97) % Sodium (137-145) mmol/L Chloride (98-107) mmol/L Carbon Dioxide (22-30) mmol/L BUN (9-20) mg/dL Creatinine (0.66-1.25) mg/dL Glucose (74-99) mg/dL POC Glucose (mg/dL) 130 H (75-99) mg/dL Plasma Lactic Acid Juan (0.7-2.0) mmol/L Calcium (8.4-10.2) mg/dL Magnesium (1.6-2.3) mg/dL Total Bilirubin (0.2-1.3) mg/dL AST (17-59) U/L ALT (4-49) U/L Alkaline Phosphatase (38-126) U/L Total Protein (6.3-8.2) g/dL Albumin (3.5-5.0) g/dL Procalcitonin (0.02-0.09) ng/mL Urine Protein (Negative) Urine Blood (Negative) Ur Leukocyte Esterase (Negative) Urine RBC (0-5) /hpf Urine WBC (0-5) /hpf Ur Squamous Epith Cells (0-4) /hpf Urine Bacteria (None) /hpf Hyaline Casts (0-2) /lpf Urine Mucus (None) /hpf Microbiology - Last 24 Hours (Table) 12/31/20 03:39 Blood Culture - Preliminary Blood No Growth after 24 hours 12/31/20 10:10 Urine Culture - Preliminary Urine,Voided Assessment and Plan Plan: 1 Acute hypoxemic respiratory failure, likely on the basis of fluid overload/pleural effusions. The patient is post bilateral thoracentesis. She is currently on 2 L of oxygen by nasal cannula. A small residual pleural effusions present on the left. 2 CAD and the patient is post four-vessel bypass grafting, with discharged from the hospital on December 25. Patient had an 11 day hospital stay. Echocardiogram showed a moderate concentric LVH in addition to mildly impaired left a ejection fraction of around 45-50%. No significant valvular abnormalities. No significant pulmonary hypertension. 3 History of atrial fibrillation. Recurrent cardiac rhythm is still atrial fibrillation with a controlled rate INR is at 2.7 4 History of diabetes mellitus. 5 Hyperlipidemia. 6 Hypertension. For now, the patient is slightly hypotensive and the patient is currently on norepinephrine running at 0.08 mcg/kg per minute. This will gradually be weaned off. This hypotension was probably related to hypovolemic hypotension. 7 BPH 8 acute kidney injury , with worsening of the renal function and creatinine is improving and the creatinine is down to 2.38 without any significant acidosis. Metabolic acidosis recovered and the patient was taken off the bicarb infusion. 9 acute transaminitis secondary to above, LFTs elevated, and a declining course 10 nonspecific elevation of the lipase, consider pancreatitis 11 hyponatremia 12 metabolic acidosis , recovered 13 hypertension currently on low-dose norepinephrine infusion for blood pressure control. Consider hypovolemia and the patient responded nicely to IV fluids. Plan: Continue IV fluids with normal saline at the rate of 50 mL an hour Discontinue BiPAP and oxygen at 2 L per minute nasal cannula Continue norepinephrine infusion, wean it off to maintain a mean arterial pressure above 60 No Coumadin today and we'll monitor the INR Cardiac rhythm is still atrial fibrillation, may restart a low dose of metoprolol 12.5 mg twice a day The kidneys showed no evidence of any hydronephrosis. Urine analysis and urine cultures are negative for now Keep the patient ICU continue to follow. Aggressive physical therapy. We'll continue to follow.
[2021-01-01] MEDS: METOPROLOL TARTRATE 25 MG TAB PO SCH (11:37)
[2021-01-01 11:48] LABS: Glucose,Whole Blood 131 mg/dL (75-99)
--- NOTE | 2021-01-01 12:50 | PN ---
PROGRESS NOTE Patient is seen for followup for acute kidney injury which was mostly obstructive uropathy with a component of acute tubular necrosis as well from hypotension. Renal function is improving with the change of Barrow catheter. Ultrasound did not pick up worker significant hydronephrosis but it was noted on the CT scan. This could have been due to the fact that it was done later on the next day. Overall, patient is more awake. His acidosis has improved. PHYSICAL EXAMINATION: Blood pressure was 112/61, heart rate 98 per minute, he is afebrile. Examination of the heart S1, S2. Examination of the lungs, bilateral breath sounds are heard. Abdomen is soft, nontender. Examination of lower extremities shows edema 2+ bilaterally. [employer] exam grossly intact. LAB: Show sodium of 130, potassium 4.0, chloride 94, BUN 76, creatinine 2.38, hemoglobin 10.3 g/dL. ASSESSMENT: 1. Acute kidney injury, obstructive uropathy with bilateral hydronephrosis noted on CT scan due to malpositioning of the Barrow catheter. Renal function is improving. Possible component of acute tubular necrosis as well from hypoperfusion. I will continue with the midodrine for now. Continue with gentle IV hydration. Hold the Lasix for now. Urine output has been 100-80 cc an hour. 2. Metabolic acidosis associated with hypotension hypoperfusion and renal failure, currently improved. Lactic acidosis is stable, not worsening. 3. Atrial fibrillation. Heart rate has been controlled, slightly on the higher side 92 95. Patient received only one dose yesterday due to hypotension. His morning dose was held. We can try to decrease the Lopressor to 12.5 mg b.i.d. since blood pressure remains significantly low. Patient is maintained on Coumadin. 4. Hypervolemic hyponatremia also secondary to urine retention, currently improved. 5. Hyperkalemia associated with acute kidney injury and urine retention, now improved. 6. Elevated liver enzymes and hyperbilirubinemia, mostly shock liver. No significant abnormality noted in the pancreas or in the liver on CT scan. PLAN: Continue saline at 50 mL an hour. Hold Lasix. Try to decrease Lopressor to 12.5 mg b.i.d. as long as heart rate remains controlled. Continue with the midodrine. MMODL / IJN: [id number] /
[2021-01-01 16:37] LABS: Glucose,Whole Blood 176 mg/dL (75-99)
[2021-01-01] MEDS: CALCIUM CARBONATE 500 MG CHEWABLE PO SCH (17:23)
[2021-01-01] MEDS: ASCORBIC ACID 500 MG TAB PO SCH (17:23)
[2021-01-01] MEDS: CHOLECALCIFEROL 25 MCG (1000 IU) TABLET PO SCH (17:23)
[2021-01-01] MEDS: ASPIRIN 81 MG PO SCH (17:23)
[2021-01-01] MEDS ORDERED: WARFARIN 0.5 MG TAB PO ONE (18:00)
[2021-01-01] MEDS: LATANOPROST 0.005% OPHTH DROPS 2.5 ML BTL BOTH EYES SCH (19:44)
[2021-01-01 19:51] LABS: Glucose,Whole Blood 144 mg/dL (75-99)
[2021-01-01] MEDS: SENNOSIDES-DOCUSATE SODIUM 1 EACH TAB PO SCH (19:56)
[2021-01-01] MEDS: METOPROLOL TARTRATE 12.5 MG TAB PO SCH (19:57)
[2021-01-01] MEDS: MONTELUKAST 10 MG TAB PO SCH (19:57)
[2021-01-01] MEDS ORDERED: MELATONIN 3 MG TABLET PO SCH (21:00)
[2021-01-02 06:06] LABS: INR 2.3 (<1.2); Prothrombin Time 22.1 sec (9.0-12.0)
[2021-01-02 06:07] LABS: Anisocytosis Slight; HCT 34.7 % (39.0-53.0); HGB 10.6 gm/dL (13.0-17.5); Hypochromasia Marked; MCH 30.6 pg (25.0-35.0); MCHC 30.5 g/dL (31.0-37.0); MCV 100.3 fL (80.0-100.0); Macrocytosis Slight; Platelet Count 251 k/uL (150-450); Poikilocytosis Moderate; RBC 3.46 m/uL (4.30-5.90); RDW 16.1 % (11.5-15.5); WBC 10.8 k/uL (3.8-10.6)
[2021-01-02 06:13] LABS: Glucose,Whole Blood 105 mg/dL (75-99)
[2021-01-02] MEDS: INSULIN ASPART (NovoLOG) 100 UNIT/ML VIAL SQ SCH ×4 (06:21→19:39)
[2021-01-02] MEDS: PANTOPRAZOLE 40 MG TABLET PO SCH (06:21)
[2021-01-02 06:40] LABS: Albumin 2.6 g/dL (3.5-5.0); Calcium 7.8 mg/dL (8.4-10.2); Potassium 3.7 mmol/L (3.5-5.1); Total Bilirubin 3.5 mg/dL (0.2-1.3)
[2021-01-02] MEDS: IPRATROPIUM-ALBUTEROL 3 ML NEB INHALATION SCH ×4 (07:43→19:46)
[2021-01-02] MEDS: MIDODRINE 5 MG TAB PO SCH ×3 (08:05→17:10)
[2021-01-02] MEDS: TAMSULOSIN 0.4 MG CAP.ER.24H PO SCH (08:05)
[2021-01-02] MEDS: SODIUM CHLORIDE 0.9% 1,000 ML IV SCH (08:06)
[2021-01-02] MEDS ORDERED: CALCIUM GLUCONATE 1 GM in SODIUM CHLORIDE 0.9% 100 ML IVPB ONE (08:12)
--- NOTE | 2021-01-02 08:24 | XR ---
EXAMINATION TYPE: XR chest 1V portable DATE OF EXAM: 01/02/2021 Comparison: 01/01/2021 Clinical History: 80-year-old male pleural effusion Findings: Median sternotomy wires are present. Clips in the mediastinum. Moderate left pleural effusion slightl y increased in the interval. Some patchy bibasilar opacities remain. Heart upper limits of normal in size. Impression: There may be increasing now moderate left pleural effusion with adjacent atelectasis and/or consolida tion.
--- NOTE | 2021-01-02 08:47 | P.PN ---
Subjective Progress Note Date: 01/02/21 Principal diagnosis: Shortness of breath, bilateral pleural effusions, acute transaminitis, and acute kidney injury. 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 The patient was seen in follow-up today 01/02/2021 at his bedside in the intensive care unit. Currently he is sitting up to the bedside chair, is awake, alert and oriented 3 and is in no acute apparent distress. He is complaining of some shortness of breath this morning but denies any complaints of pain. He also reports that he feels weak and has no appetite. Oxygen saturation are 98% on 2 L nasal cannula and he is achieving 1000 mL on his incentive spirometry with encouragement. He remains hemodynamically stable and is currently on no inotropic or pressor support. Bedside telemetry showing atrial fibrillation heart rate 94 BPM. Lopressor 12.5 mg by mouth twice a day was initiated yesterday 01/01/2021. Laboratory results this morning show a WBC count 10.8, hemoglobin 10.6, hematocrit 34.7, platelets 251, sodium 131, potassium 3.7, BUN 60, creatinine 1.41, plasma lactic acid venous 2.1, total bilirubin 3.5, AST 449, ALT 684, and LDH 1192. His urine culture is showing gram-negative bacilli with a colony count greater than 100,000 CFU/ml. He was started on Rocephin 1 g IV piggyback every 24 hours yesterday by pulmonary/critical care medicine. He has been afebrile the last 24 hours. Nursing staff reports that he did ambulate in the hallway yesterday with physical therapies assistance. According to the patient's nurse today, the patient has been refusing to eat, ambulate and get up in the shower. Objective - Vital Signs Vital signs: Vital Signs Temp 97.7 F 01/02/21 04:00 Pulse 95 10/22/21 07:00 Resp 16 01/02/21 07:00 BP 102/74 01/02/21 07:00 Pulse Ox 98 01/02/21 07:00 Intake & Output 01/01/21 01/02/21 01/02/21 18:59 06:59 18:59 Intake Total 1719 907.156 Output Total 910 865 80 Balance 809 42.156 -80 Weight 95.8 kg Intake: IV 75 600 Sodium Chloride 0.45% 1, 75 000 ml @ 75 mls/hr IV . [id number] BRENDA with Sod Bicarb Syr 8.4% (1 Meq/ml ) 150 ml Rx#:[id number] Sodium Chloride 0.9% 1, 600 000 ml @ 50 mls/hr IV . Q20H BRENDA Rx#:[id number] Intake, IV Titration 804 187.156 Amount Norepinephrine 4 mg In 254 137.156 Sodium Chloride 0.9% 250 ml @ 0.05 MCG/KG/MIN 18. 078 mls/hr IV .[id number] BRENDA Rx#:[id number] Sodium Chloride 0.9% 1, 550 50 000 ml @ 50 mls/hr IV . Q20H BRENDA Rx#:[id number] Oral 840 120 Output: Urine 910 865 80 Other: Voiding Method Indwelling Catheter Indwelling Catheter # Voids 1 - Exam CONSTITUTIONAL: Sitting up to the bedside chair in the intensive care unit, appears comfortable, cooperative, no apparent acute distress. HEENT: Neck is supple, no JVD, no lymphadenopathy. RESPIRATORY: Lungs sounds essentially clear throughout, diminished to his bilateral bases. Respirations are symmetrical and nonlabored. Currently on 2 L nasal cannula with oxygen saturations 98%. Able to achieve 1000 mL on his incentive spirometry. Strong cough. CARDIOVASCULAR: Irregular rhythm and controlled rate. S1 and S2 present, negative for S3, gallop or murmur. Sternum is stable. Palpable peripheral pulses bilaterally, +1 edema to his bilateral lower extremities and 1-2+ edema to his bilateral upper extremities. No calf pain or tenderness noted. Heart hugger in place with patient demonstrating appropriate use. Knee-high HA hose and sequential compression devices in place to his bilateral lower extremities. GASTROINTESTINAL: Abdomen soft, nontender, and slightly distended. Active bowel sounds present 4 quadrants. Tolerating diet. Passing flatus. No guardi ng or rigidity. GENITOURINARY: Barrow present draining cloudy, holly urine. Output 605 mL in the last 8 hours. INTEGUMENTARY: Skin is warm and dry with no evidence of clubbing or cyanosis. Midline sternal incision clean dry and well approximated, covered with dry intact dressing. Left lower extremity EVH sites well approximated without redness or drainage. Left arm radial artery harvest sites clean, dry and approximated. No drainage or redness is present. NEUROLOGIC: Cranial nerves II through XII intact. No focal deficits. MUSKULOSKELETAL: Able to move all extremities, strength equal bilaterally, generalized weakness. PSYCHIATRIC: Alert and oriented to person place and time, flat affect, intact judgment and insight. - Allied health notes Allied health notes reviewed: nursing - Labs CBC & Chem 7: 01/02/21 05:33 01/02/21 05:33 Labs: Abnormal Lab Results - Last 24 Hours (Table) 01/01/21 01/01/21 01/01/21 Range/Units 11:47 16:35 19:50 WBC (3.8-10.6) k/uL RBC (4.30-5.90) m/uL Hgb (13.0-17.5) gm/dL Hct (39.0-53.0) % MCV (80.0-100.0) fL MCHC (31.0-37.0) g/dL RDW (11.5-15.5) % PT (9.0-12.0) sec INR (<1.2) Sodium (137-145) mmol/L BUN (9-20) mg/dL Creatinine (0.66-1.25) mg/dL Glucose (74-99) mg/dL POC Glucose (mg/dL) 131 H 176 H 144 H (75-99) mg/dL Plasma Lactic Acid Juan (0.7-2.0) mmol/L Calcium (8.4-10.2) mg/dL Total Bilirubin (0.2-1.3) mg/dL AST (17-59) U/L ALT (4-49) U/L Alkaline Phosphatase (38-126) U/L Lactate Dehydrogenase (313-618) U/L Total Protein (6.3-8.2) g/dL Albumin (3.5-5.0) g/dL 01/02/21 01/02/21 01/02/21 Range/Units 05:33 05:33 05:33 WBC 10.8 H (3.8-10.6) k/uL RBC 3.46 L (4.30-5.90) m/uL Hgb 10.6 L (13.0-17.5) gm/dL Hct 34.7 L (39.0-53.0) % MCV 100.3 H (80.0-100.0) fL MCHC 30.5 L (31.0-37.0) g/dL RDW 16.1 H (11.5-15.5) % PT 22.1 H (9.0-12.0) sec INR 2.3 H (<1.2) Sodium 131 L (137-145) mmol/L BUN 60 H (9-20) mg/dL Creatinine 1.41 H (0.66-1.25) mg/dL Glucose 132 H (74-99) mg/dL POC Glucose (mg/dL) (75-99) mg/dL Plasma Lactic Acid Juan (0.7-2.0) mmol/L Calcium 7.8 L (8.4-10.2) mg/dL Total Bilirubin 3.5 H (0.2-1.3) mg/dL AST 449 H (17-59) U/L ALT 684 H (4-49) U/L Alkaline Phosphatase 194 H (38-126) U/L Lactate Dehydrogenase 1192 H (313-618) U/L Total Protein 5.0 L (6.3-8.2) g/dL Albumin 2.6 L (3.5-5.0) g/dL 01/02/21 01/02/21 Range/Units 05:33 06:12 WBC (3.8-10.6) k/uL RBC (4.30-5.90) m/uL Hgb (13.0-17.5) gm/dL Hct (39.0-53.0) % MCV (80.0-100.0) fL MCHC (31.0-37.0) g/dL RDW (11.5-15.5) % PT (9.0-12.0) sec INR (<1.2) Sodium (137-145) mmol/L BUN (9-20) mg/dL Creatinine (0.66-1.25) mg/dL Glucose (74-99) mg/dL POC Glucose (mg/dL) 105 H (75-99) mg/dL Plasma Lactic Acid Juan 2.1 H* (0.7-2.0) mmol/L Calcium (8.4-10.2) mg/dL Total Bilirubin (0.2-1.3) mg/dL AST (17-59) U/L ALT (4-49) U/L Alkaline Phosphatase (38-126) U/L Lactate Dehydrogenase (313-618) U/L Total Protein (6.3-8.2) g/dL Albumin (3.5-5.0) g/dL Microbiology - Last 24 Hours (Table) 12/31/20 03:39 Blood Culture - Preliminary Blood No Growth after 48 hours 12/31/20 10:10 Urine Culture - Preliminary Urine,Voided Gram Neg Bacilli - Imaging and Cardiology Chest x-ray: report reviewed, image reviewed Assessment and Plan Assessment: 1. Shortness of breath, improving 2. Acute transaminitis, likely from hepatic congestion secondary to heart fa ilure, LFTs trending down 3. Bilateral pleural effusions, drained right 650 mL, left 1200 mL 12/30/20 4. Acute kidney injury, possibly from obstructive uropathy, BUN and creatinine continued to trend down. 5. Coronary artery disease status post PCI to the LAD in 2005 and subsequent 4 vessel CABG on 12/16/2020 6. Previously preserved left ventricular function, mildly impaired left ventricular systolic function with EF 45-50% on current TTE 7. Chronic atrial fibrillation on Coumadin for anticoagulation with supratherapeutic INR on admission, status post exclusion of the left atrial appendage 8. History of hypertension 9. History of hyperlipidemia, treated 10. Diet controlled diabetes mellitus, recent hemoglobin A1c 6.2% 11. Obstructive sleep apnea on home CPAP, was not on at [facility] 12. History of pituitary tumor 13. Lifetime nonsmoker with a preoperative FEV1 91% of predicted 14. History of daily wine consumption 15. 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 Acute hypoxemic respiratory failure, likely from fluid overload 17. Metabolic acidosis Plan: 1. Continue aspirin, and low-dose beta junito. Continue to hold statin until liver enzymes returned to normal. 2. Continue to hold Cardizem. 3. Continue midodrine 10 mg by mouth 3 times a day. 4. Wean O2 as tolerated. Encourage incentive spirometry is 10 times every hour while awake. Bronchodilators, BiPAP per pulmonology/critical care management. 5. Increase activity, ambulate as tolerated. PT/OT following. The patient needs much encouragement to get up to ambulate. 6. Will monitor daily labs and chest x-rays. 7. Avoid nephrotoxins, appreciate nephrology recommendations, Lasix per nephrology recommendations. 8. Continue sternal precautions. Heart hugger is in place. 9. Medical management of other comorbidities per primary care service 10. Calcium gluconate 1 g IV piggyback 1 now. 11. Coumadin 2 mg by mouth 1 today. 12. Urine culture showing gram-negative bacilli, he is currently on Rocephin 1 g IV piggyback every 24 hours. 13. Encourage nutrition. 14. Celexa 20 mg by mouth daily was initiated today. 15. More recommendations to follow based on patient's clinical course. Time with Patient: Greater than 30
[2021-01-02] MEDS: METOPROLOL TARTRATE 12.5 MG TAB PO SCH ×2 (08:49→19:39)
[2021-01-02] MEDS ORDERED: CITALOPRAM HYDROBROMIDE 20 MG TAB PO SCH (09:00)
--- NOTE | 2021-01-02 10:16 | P.PN ---
Subjective Progress Note Date: 01/02/21 80-year-old male patient being seen in follow-up on 12/29/2020. He was hospitalized yesterday for acute hypoxic respiratory failure, shortness of breath, fluid overload. The patient is post four-vessel bypass surgery and the patient was discharged from the hospital on 12/25/2012 after a nonsmoker for t otal of 11 days. He has history of atrial fibrillation, diabetes mellitus, hypertension and hyperlipidemia and BPH. The patient had some issues with generalized weakness and debility postop. He continued to have some degree of shortness of breath with interval worsening. He came into the emergency department and was quite tachypneic and short of breath. He was transferred to the intensive care unit and he was off her diuretics and BiPAP therapy for restorative support. His BUN was at 62 with a creatinine of 1.7 and his chest x-ray showed cardiomegaly and bilateral pleural effusion. She was started on diuretics. The patient has chronic atrial fibrillation the patient was also discharged home on Lasix. The patient had a lactic acid level of 2.1 which dropped subsequently to 1.7. LFTs are normal with an elevated AST and ALT, improving and the troponin was 0.144 and 0.1. Respectively 2. Lipase level was 468. ProBNP level was 5370. COVID-19 testing was negative. Initial sodium level was 128. Creatinine was 1.68. INR was at 5.6 with a PT of 54 while the patient on Coumadin. Coumadin was maintained on hold.Echocardiogram showed a moderate concentric LVH in addition to mildly impaired left a ejection fraction of around 45-50%. No significant valvular abnormalities. No significant pulmonary hypertension. On today's evaluation, the patient seems to be a bit more alert and awake compared to yesterday. His at 12.6. Creatinine is still impaired with a creatinine of 1.8. The patient is receiving Lasix 40 mg IV every 8 hours. Her net fluid balance over the past 24 hours is -1.2 L. Chest x-ray from today still showing bilateral pleural effusions and MARKING OF THE PLEURAL EFFUSION HAS ALREADY BEEN DONE. THERE IS ALSO PATCHY PERIHILAR AND BASILAR ATELECTATIC CHANGES WITHOUT ANY MAJOR INTERVAL CHANGE COMPARED TO YESTERDAY. CARDIAC RHYTHM REMAINS IRREGULAR CONSISTENT WITH ATRIAL FIBRILLATION. The patient also has an INR of 3.0, slightly improved compared to yesterday. On today's evaluation of 12/30/2020, I'm seeing the patient for a follow-up. He is able to sit up on a chair. Is calm and comfortable. His breathing is still shallow and the follow-up chest x-ray from today showing bilateral pleural effusion slightly worse on the right. Ultrasound of markings of the right chest has been done. Meanwhile, the patient was given vitamin K yesterday total of 2.5 mg IV and the follow-up INR was down to 1.9. I'm going to proceed with a right-sided thoracentesis today. He is currently on 2 L about 2 by nasal cannula. He is using incentive spirometer and he is getting approximately thousand on his INRs. His cardiac rhythm is still atrial fibrillation. The patient remains on a combination of oral Cardizem and metoprolol for rate contro l. His antibiotic patient is currently on hold. He remains on IV Lasix and the patient is receiving Lasix 40 mg IV on a daily basis. Her net fluid balance over the past 24 hours has been -1.2 L. White cell count is at 4.2 with a hemoglobin of 9.9. His LFTs are essentially improving. AST is down to 280, ALT is down to 535, alkaline phosphatase is at 295. Patient is awake and alert. No other significant complaints otherwise for now. The patient is post four-vessel bypass surgery. The patient also has chronic atrial fibrillation, diabetes mellitus, hypertension and hyperlipidemia. Overall, he remains quite weak and somewhat debilitated. LFTs are improving, creatinine is at 2.1. On 12/31/2020, the patient is being seen for a follow-up. After being transferred to a medical floor, the patient got transferred back to the intensive care unit as the patient was becoming hypotensive. Note that the patient underwent bilateral thoracentesis yesterday were a total of 650 mL of fluid aspirated from the right and approximately 1.2 L of fluid was aspirated from the left. No complications following the procedure. No pneumothorax. The patient adequate expansion of both lungs. Overnight, the patient became hypotensive and he got transferred to the intensive care unit. Urine output was dropping. Note that there was a problem with his Barrow catheter with the balloon being within the prostate. Ex appropriate positioning Barrow catheter was done. The catheter was advanced and there was adequate amount of urine output initially and subsequently the urine output tapered off. For now, the patient is hypotensive. He received a total of 1.5 L of normal saline overnight. Currently is receiving normal saline at rate of 75 mL an hour. Urine output is no order of 20-30 mL an hour. The patient overnight was also placed on pressors and norepinephrine infusion is running at 0.06 mcg/kg per minute. The patient is also on BiPAP for respiratory support and the current settings are 12/5 cm of water with an FiO2 of 40%. The patient is calm and comfortable and the patient is able to generate adequate tidal volumes of 650 with a rate of 20 and a minute ventilation of 13.5. The blood work from today shows a component of anion gap metabolic acidosis. The serum bicarbonate is down to 10 and anion gap is up to 19. His sodium level has dropped down to 125. The patient has developed an acute kidney injury probably related to an obstructive uropathy. Creatinine is up to 2.75. He does have a bicarb deficit also. The blood gas showed a pH of 7.43 with a pCO2 of 24 and pO2 of 129 and this was done on the above-mentioned BiPAP settings. He is awake. He is alert. Surgical wound site is dry clean and intact. He is arousable and is following commands. Current pulse ox is 99% and the patient is able to follow commands and answer questions appropriately. White cell count at 16.5. No signs of any infection. INR today is at 2.9 and the patient was given warfarin yesterday. As far as is LFTs, there is still elevated with a AST of 1200 to an ALT of 987. The bilirubin is at 5.8 consistent with a cholestatic picture with a alkaline phosphatase of 239. Serum cortisols at 27. 01/01/2021, the patient is sitting up on a chair awake and alert. He spent the day off BiPAP and overnight he was off the BiPAP. Currently is on oxygen at 2 L per minute nasal cannula. Chest x-ray shows resolution of the right-sided pleural effusion, there is a small left-sided pleural effusion present. He is post bilateral thoracentesis. In terms of hemodynamics, he is on low dose of pressors and norepinephrine running at 0.085 mg/kg per minute. He remains in atrial fibrillation. Slightly tachycardic. He is off diuretics and is producing adequate amount of urine output. Creatinine is improving and is currently down to 2.3 with a sodium level improving at 130 and hemoglobin of 10.3. The patient is off Lasix. The patient will be started back on a low-dose metoprolol for rate control. His INR is therapeutic at 2.7 and the patient was not given warfarin yesterday. This will be held for today to. Lasix is currently on hold. The renal function continues to improve. Mentation is adequate. No focal neurological deficit. Barrow cath is in place. He is still weak and he needs aggressive rehabilitation. 01/02/2021, the patient feels weak and still not fully recovered. Nevertheless, all of his blood work showing improvement. Since yesterday, the patient is still on oxygen at 2 L per minute nasal cannula. His chest x-ray showing small left-sided pleural effusion and limited infiltration of the lung bases. The patient was found to have gram-negative bacillus in the urine and the patient was started on IV Rocephin. He is on no pressors. He is on oral Lasix. His renal function continues to improve in the creatinine is currently down to 1.4 with a mean of 60. Sodium is at 131. White cell count is not elevated at 10.6. Lactic acid level is at 3.1, improving. Creatinine is at 1.4. He did have a component of shock liver which is also improving. As such, all of his blood work and progressed nicely. The patient continues to have a Barrow cath in place. The fluid balance over the past 24 hours has been in the order of +1.1 L. He is using incentive spirometer and is pulling approximately 1000. Objective - Vital Signs Vital signs: Vital Signs Temp 96.1 F L 01/02/21 08:00 Pulse 100 01/02/21 08:00 Resp 22 01/02/21 08:00 BP 107/66 01/02/21 08:00 Pulse Ox 99 01/02/21 08:00 Intake & Output 01/01/21 01/02/21 01/02/21 18:59 06:59 18:59 Intake Total 1719 907.156 290 Output Total 910 865 155 Balance 809 42.156 135 Weight 95.8 kg Intake: IV 75 600 50 Sodium Chloride 0.45% 1, 75 000 ml @ 75 mls/hr IV . [id number] BRENDA with Sod Bicarb Syr 8.4% (1 Meq/ml ) 150 ml Rx#:[id number] Sodium Chloride 0.9% 1, 600 50 000 ml @ 50 mls/hr IV . Q20H BRENDA Rx#:[id number] Intake, IV Titration 804 187.156 Amount Norepinephrine 4 mg In 254 137.156 Sodium Chloride 0.9% 250 ml @ 0.05 MCG/KG/MIN 18. 078 mls/hr IV .Q14H4M BRENDA Rx#:[id number] Sodium Chloride 0.9% 1, 550 50 000 ml @ 50 mls/hr IV . Q20H BRENDA Rx#:[id number] Oral 840 120 240 Output: Urine 910 865 155 Other: Voiding Method Indwelling Catheter Indwelling Catheter Indwelling Catheter # Voids 1 - Exam Mild respiratory distress with increased respiratory rate, oriented 3. The patient is currently on 2 l NC HEENT examination is grossly unremarkable. Neck supple. Full range of motion. No adenopathy thyromegaly or neck vein distention. Cardiovascular examination reveals irregular rhythm rate. S1-S2 normal. No S3 or S4. No discernible murmur noted. The rhythm is irregular consistent with atrial fibrillation. There is also systolic ejection murmur grade 2/6 heard throughout the precordium. Lungs reveal diffuse bibasilar crackles. There is dullness at the bases. Scat tered moderate rhonchi are noted. No wheezes appreciated. Overall, there is improvement in her entry bilaterally. He is post bilateral thoracentesis. Abdomen soft bowel sounds are heard. No masses or tenderness. Extremities are intact. No cyanosis or clubbing. 1+ edema is noted.There is adequate pulses in lower extremities bilaterally. Skin is without rash or lesion. Neurologic examination is brief but nonfocal. The patient is lethargic, sleepy yet arousable. He follows simple commands. Neurologic exam remains nonfocal. - Labs CBC & Chem 7: 01/02/21 05:33 01/02/21 05:33 Labs: Abnormal Lab Results - Last 24 Hours (Table) 01/01/21 01/01/21 01/01/21 Range/Units 11:47 16:35 19:50 WBC (3.8-10.6) k/uL RBC (4.30-5.90) m/uL Hgb (13.0-17.5) gm/dL Hct (39.0-53.0) % MCV (80.0-100.0) fL MCHC (31.0-37.0) g/dL RDW (11.5-15.5) % PT (9.0-12.0) sec INR (<1.2) Sodium (137-145) mmol/L BUN (9-20) mg/dL Creatinine (0.66-1.25) mg/dL Glucose (74-99) mg/dL POC Glucose (mg/dL) 131 H 176 H 144 H (75-99) mg/dL Plasma Lactic Acid Juan (0.7-2.0) mmol/L Calcium (8.4-10.2) mg/dL Total Bilirubin (0.2-1.3) mg/dL AST (17-59) U/L ALT (4-49) U/L Alkaline Phosphatase (38-126) U/L Lactate Dehydrogenase (313-618) U/L Total Protein (6.3-8.2) g/dL Albumin (3.5-5.0) g/dL Lipase (23-300) U/L 01/02/21 01/02/21 01/02/21 Range/Units 05:33 05:33 05:33 WBC 10.8 H (3.8-10.6) k/uL RBC 3.46 L (4.30-5.90) m/uL Hgb 10.6 L (13.0-17.5) gm/dL Hct 34.7 L (39.0-53.0) % MCV 100.3 H (80.0-100.0) fL MCHC 30.5 L (31.0-37.0) g/dL RDW 16.1 H (11.5-15.5) % PT 22.1 H (9.0-12.0) sec INR 2.3 H (<1.2) Sodium 131 L (137-145) mmol/L BUN 60 H (9-20) mg/dL Creatinine 1.41 H (0.66-1.25) mg/dL Glucose 132 H (74-99) mg/dL POC Glucose (mg/dL) (75-99) mg/dL Plasma Lactic Acid Juan (0.7-2.0) mmol/L Calcium 7.8 L (8.4-10.2) mg/dL Total Bilirubin 3.5 H (0.2-1.3) mg/dL AST 449 H (17-59) U/L ALT 684 H (4-49) U/L Alkaline Phosphatase 194 H (38-126) U/L Lactate Dehydrogenase 1192 H (313-618) U/L Total Protein 5.0 L (6.3-8.2) g/dL Albumin 2.6 L (3.5-5.0) g/dL Lipase (23-300) U/L 01/02/21 01/02/21 01/02/21 Range/Units 05:33 05:33 06:12 WBC (3.8-10.6) k/uL RBC (4.30-5.90) m/uL Hgb (13.0-17.5) gm/dL Hct (39.0-53.0) % MCV (80.0-100.0) fL MCHC (31.0-37.0) g/dL RDW (11.5-15.5) % PT (9.0-12.0) sec INR (<1.2) Sodium (137-145) mmol/L BUN (9-20) mg/dL Creatinine (0.66-1.25) mg/dL Glucose (74-99) mg/dL POC Glucose (mg/dL) 105 H (75-99) mg/dL Plasma Lactic Acid Juan 2.1 H* (0.7-2.0) mmol/L Calcium (8.4-10.2) mg/dL Total Bilirubin (0.2-1.3) mg/dL AST (17-59) U/L ALT (4-49) U/L Alkaline Phosphatase (38-126) U/L Lactate Dehydrogenase (313-618) U/L Total Protein (6.3-8.2) g/dL Albumin (3.5-5.0) g/dL Lipase 302 H (23-300) U/L 01/02/21 Range/Units 09:30 WBC (3.8-10.6) k/uL RBC (4.30-5.90) m/uL Hgb (13.0-17.5) gm/dL Hct (39.0-53.0) % MCV (80.0-100.0) fL MCHC (31.0-37.0) g/dL RDW (11.5-15.5) % PT (9.0-12.0) sec INR (<1.2) Sodium (137-145) mmol/L BUN (9-20) mg/dL Creatinine (0.66-1.25) mg/dL Glucose (74-99) mg/dL POC Glucose (mg/dL) (75-99) mg/dL Plasma Lactic Acid Juan 3.1 H* (0.7-2.0) mmol/L Calcium (8.4-10.2) mg/dL Total Bilirubin (0.2-1.3) mg/dL AST (17-59) U/L ALT (4-49) U/L Alkaline Phosphatase (38-126) U/L Lactate Dehydrogenase (313-618) U/L Total Protein (6.3-8.2) g/dL Albumin (3.5-5.0) g/dL Lipase (23-300) U/L Microbiology - Last 24 Hours (Table) 12/31/20 03:39 Blood Culture - Preliminary Blood No Growth after 48 hours 12/31/20 10:10 Urine Culture - Preliminary Urine,Voided Gram Neg Bacilli Assessment and Plan Plan: 1 Acute hypoxemic respiratory failure, likely on the basis of fluid overload/pleural effusions. The patient is post bilateral thoracentesis. She is currently on 2 L of oxygen by nasal cannula. A small residual pleural effusions present on the left. 2 CAD and the patient is post four-vessel bypass grafting, with discharged from the hospital on December 25. Patient had an 11 day hospital stay. Echocardiogram showed a moderate concentric LVH in addition to mildly impaired left a ejection fraction of around 45-50%. No significant valvular abnormalities. No significant pulmonary hypertension. 3 History of atrial fibrillation. Recurrent cardiac rhythm is still atrial fibrillation with a controlled rate INR is at 2.3 4 History of diabetes mellitus. 5 Hyperlipidemia. 6 hypotension recovered and the patient is currently normotensive off pressors 7 BPH 8 acute kidney injury , with worsening of the renal function and creatinine is improving 9 acute transaminitis secondary to above, LFTs elevated, and a declining course 10 nonspecific elevation of the lipase, consider pancreatitis 11 hyponatremia, improved 12 metabolic acidosis , recovered 13 hypertension currently on low-dose norepinephrine infusion for blood pressure control. Consider hypovolemia and the patient responded nicely to IV fluids. Plan: Continue IV fluids much with his KVO Discontinue BiPAP and oxygen at 2 L per minute nasal cannula off pressors today 2 mg of Coumadin will be given to him today Cardiac rhythm is still atrial fibrillation, metoprolol 12.5 mg twice a day The kidneys showed no evidence of any hydronephrosis. Urine analysis and urine cultures are negative for nowcreatinine continues to improve IV Rocephin for UTI with gram-negative bacillus Celexa was added for also mood stabilization and elevation as the patient is felt to be significantly depressed with low ambition and motivation. Keep the patient ICU continue to follow. Aggressive physical therapy. We'll continue to follow.
[2021-01-02] MEDS ORDERED: APIXABAN 5 MG TAB PO SCH (10:30)
--- NOTE | 2021-01-02 11:18 | P.PN ---
Subjective Progress Note Date: 01/02/21 HISTORY OF PRESENT ILLNESS This is a 80-year-old male patient of Dr. Campos and Dr. Mullins with past medical history of chronic persistent atrial fibrillation, diabetes mellitus type 2, hypertension, hyperlipidemia, history of pituitary tumor resection, obstructive sleep apnea on BiPAP, gastroesophageal reflux disease, benign prostatic hypertrophy. He should also has history of coronary artery disease status post PCI to the LAD in 2005, heart catheterization in October 2020 found severe triple-vessel disease, subsequently admitted to the hospital for elective coronary artery bypass grafting 12/16 for four-vessel bypass MORAN to LAD, left radial artery from the aorta to the first obtuse marginal artery, reverse saphenous vein graft from the aorta to the second diagonal artery, reverse saphenous vein graft from the aorta to the posterior descending artery, endoscopic harvesting of the left radial artery, endoscopic harvesting of the left greater saphenous vein from ankle to the groin, exclusion of the left atrial appendage. During his last admission, he remained in ICU,Until December 24,, and after he was transferred to [facility] for cardiac recovery program. He has chronic atrial fibrillation, diabetes mellitus type 2, hypertension, hyperlipidemia, history of pituitary gland resection, obstructive sleep apnea, BPH with urinary retention, and delirium.. At the time of discharge, he was on Coumadin and Singulair Cardizem CD lisinopril Tylenol, he was taken off atenolol Vytorin lisinopril Imdur aspirin and nitro. -He comes back to the emergency room 2 days later, from [facility], secondary to shortness of breath, and edema. She also has worsening of her liver issues, with no visible jaundice. On ER presentation, he has indwelling Barrow catheter, there is no fever, no focal deficit, chest pain, he has shortness of breath, no vomiting, no diarrhea, no melena. In the emergency room, EKG shows atrial fibrillation heart rate of 79, no significant change compared to 927 EKG, double basic count is 15, hemoglobin of 9, sodium of 131, BUN 62 creatinine 4.7, CO2 of 19 total bili of 7.3, AST 949 ALT 881, alkaline phosphatase 411, troponin is stagnant at 0.14, and 0.148. Lactic acid level was 2.1, INR is 3.3 ultrasound of the gallbladder, shows common bile duct is normal, liver is enlarged, otherwise no other pathologies noted. Chest x-ray shows bilateral pleural effusion, basilar pulmonary infiltrates, which slightly is worse compared to previous, mild heart failure is possible, cardiomegaly some change patient is admitted to ICU with consultation to critical care medicine Dr. Vásquez, and cardiology. Chest ultrasound is ordered CMV and hepatitis panels ordered, patient would need a CAT scan of the abdomen, to eval for spleen gallbladder, Tylenol is discontinued, Lipitor is discontinued check for haptoglobin, reticulocyte count, and iron studies to evaluate portal system. 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 INR is 3. Sodium 132, potassium 4.1, chloride 100, CO2 18, BUN 65 and creatinine 1.81, blood sugar 119. Total bilirubin 6.5, AST 493, ALT 663, alkaline phosphatase 360. INR is 3.0. Magnesium 2.6. Lipase 473. CMV nonreactive 2 draws. Hepatitis panel negative. Repeat chest x-ray reveals patchy perihilar and basilar infiltrates/atelectasis as well as pleural effusions persist without significant interval change. Dr. Cartagena has ordered for vitamin K 2.5 mg and repeat INR with plan for thoracentesis once INR is und er 2. Patient is also followed by cardiology and Lasix decreased to 40 mg IV daily. Echocardiogram reveals EF of 45-60% with moderate concentric left hypertrophy, LA is severely dilated, mild to moderate mitral regurgitation, mild tricuspid regurgitation. Patient denies having any shortness of breath at rest. He denies abdominal pain, no nausea. He has had good urine output around 35 mL per hour. 12/30: Patient underwent right sided thoracentesis this morning with Dr. Cartagena with removal of approximately 650 ML's of turbid fluid. Repeat chest x- ray following procedure showed no complications. Patient was on BiPAP during the night and currently on O2 by nasal cannula at 3 L with pulse ox of 97%. Blood pressure 101/64, heart rate 81, afebrile. Patient has been seen and followed by nephrology for acute kidney injury secondary to hypotension and hypoperfusion. Plan is to continue diuresis in the patient, hold MAURA inhibitor, check cortisol level, monitor I&O's. Midodrine was increased yesterday. Repeat blood work today reveals WBC 12.2, hemoglobin 9.9 and platelet count 312. INR this morning was 1.9. Sodium 128, potassium 4.7, chloride 95, CO2 21, BUN 71 and creatinine 2.11. Blood sugars running between 109 and 134. Repeat liver function tests reveal total bilirubin 6, AST 28, ALT 535, alkaline phosphatase 295. Magnesium 2.8. Cortisol level came back at 27. Patient will be transferred to the cardiac stepdown unit. 12/31: Patient remains in the intensive care unit, today resting in bed on BiPAP. Patient became hypotensive overnight and required levo fed and was transferred back to the intensive care unit. Levo fed is currently off. Repeat blood work reveals WBC 16.5, hemoglobin 10.4, platelet count 282. Sodium 125, potassium 5.8, BUN 77 and creatinine 2.75. AST 1302, ALT 987, alkaline phosphatase 236. INR 2.9. Patient is followed by multiple consultants including cardiology, pulmonary medicine, nephrology and cardiothoracic surgery. Patient has been reaching 1000 on incentive spirometry. CAT scan of the abdomen and pelvis reveals nonobstructive left nephrolithiasis. Left pleural effusion difficult to exclude basilar pneumonia or atelectasis. There may be a posterior dependent he will. Cardiac. Coronary artery disease. Repeat chest x-ray reveals stable bibasilar infiltrate and small left pleural effusion. Renal ultrasound reveals limited assessment of left kidney demonstrate no definite hydronephrosis or hydroureter lysis. No hydronephrosis on the right kidney 01/01: Patient remains in the intensive care unit, resting in chair on nasal oxygen and appears to be comfortable. Pulse ox is 99%, blood pressure 80/65 and he is on levo fed. Lopressor was decreased by nephrology. Heart rate is 106, afebrile. Repeat blood work reveals WBC 10.1, hemoglobin 10.3, platelet count 291. INR 2.7. Sodium 130, potassium 4.0, chloride 94, CO2 25, BUN 76 and creatinine 2.38. Calcium 7.7. Magnesium 2.8. AST 824, ALT 920, alkaline p hosphatase 210. Patient received calcium gluconate 1 g this morning. Chest x-ray reveals pleural parenchymal density left lower lobe persistent appears to be somewhat improved. 01/02: Patient remains in intensive care unit. He appears to be less jaundiced today. Urine is blood tinged. He states he is uncomfortable all over his body but no specific pain. He states he is skinny interrupted sleep throughout the night and melatonin increased. He continues not have appetite and Remeron added. Discussed with cardiothoracic surgery transitioning patient to elirandais although patient had episodes of nausea with this and to discuss other options, and also regard the posterior hemopericardium. Patient has been afebrile, heart rate 105, blood pressure 103/70, pulse ox 99% 2 L nasal cannula. Repeat blood work reveals WBC 10.8, hemoglobin 10.6, platelet count 251. Sodium 131, potassium 3.7, chloride 100, CO2 22, BUN 16 creatinine 1.41. Blood sugars are running between 105 and 144. Lactic acid 2.1. Calcium 7.8. Liver function tests are improving with total bilirubin 3.5, AST 449, ALT 684, alkaline phosphatase 194. LDH 1192. Lipase 302. REVIEW OF SYSTEMS Constitutional: No fever, no chills, no night sweats. No weight change. Reports weakness, reports fatigue. Reports daytime sleepiness. EENT: No headache. No blurred vision or double vision, no loss of vision. No loss of Hearing, no ringing in the ears, no dizziness. No nasal drainage or congestion. No epistaxis. No sore throat. Lungs: Reports shortness of breath, cough, no sputum production. No wheezing. Reports dyspnea with exertion. Cardiovascular: No chest pain, no lower extremity edema. No palpitations. No paroxysmal nocturnal dyspnea. No orthopnea. No lightheadedness or dizziness. No syncopal episodes. Abdominal: No abdominal pain. No nausea, vomiting. No diarrhea. No c onstipation. No bloody or tarry stools. Reports loss of appetite. Genitourinary: No dysuria, increased frequency, urgency. Reported urinary retention. Musculoskeletal: No myalgias. Reports muscle weakness, no gait dysfunction, no frequent falls. No back pain. No neck pain. Integumentary: No wounds, no lesions. No rash or pruritus. No unusual bruising. No change in hair or nails. Neurologic: No aphasia. No facial droop. No change in mentation. No head injury. No headache. No paralysis. No paresthesia. Psychiatric: No depression. No anxiety. No mood swings. Reports insomnia Endocrine: No abnormal blood sugars. No weight change. PHYSICAL EXAMINATION Gen: This is a 80-year-old male. Patient is resting in chair in the intensive care unit and appears to be comfortable HEENT: Head is atraumatic, normocephalic. Pupils equal, round. Sclerae is icteric. Patient is severely hard of hearing NECK: Supple. No JVD. No lymphadenopathy. No thyromegaly. LUNGS: Diminished to the bilateral basis. No intercostal retractions. HEART: Irregular rate and rhythm. No murmur. ABDOMEN: Soft. Bowel sounds are present. No masses. No tenderness. Barrow c atheter blood-tinged urine. EXTREMITIES: 1+ bilateral pedal edema. No calf tenderness. NEUROLOGICAL: Patient is awake, alert and oriented x3. Cranial nerves 2 through 12 are grossly intact. ASSESSMENT AND PLAN 1. Acute hypoxic respiratory failure secondary to fluid overload and pleural effusions. Patient is status post right-sided thoracentesis on 12/30 of 650 mL, continue Lasix oral 40 mg daily, monitor I&O and daily weights, monitor renal function and electrolytes. 2. Severe coagulopathy, on Coumadin, with worsening of transaminitis, with jaundice, suspect hepatobiliary obstruction, ischemic liver cirrhosis. Lipitor and Tylenol was discontinued and held, Coumadin has been resumed on hold. No GI consultation is available, till January 12, monitor liver function tests. INR to be monitored daily. Patient is status post vitamin K. 3. Acute kidney injury and chronic kidney disease stage II secondary to hypoperfusion, obstructive uropathy with balloon not in the bladder. Consult with nephrology appreciated. Avoid nephrotoxic agents. 4. Metabolic acidosis secondary to acute kidney injury. 5. Coronary artery disease status post 4 vessel CABG 12/16. Continue current management per cardio thoracic surgery. Continue aspirin 81 mg daily, Lipitor on hold, Lopressor 12.5 mg twice daily 6. Chronic persistent atrial fibrillation. Resumed Lopressor at lower dose of 12.5 mg twice daily, patient is off Cardizem. Coumadin has been resumed. 7. Acute hypoxemic respiratory failure, patient's on BiPAP supplementation, followed closely by critical care medicine and pulmonary. 8. Hypovolemic hyponatremia. Continue to monitor sodium, consult with nephrology appreciated, bicarb drip. 9. Diabetes mellitus type 2. Continue with NovoLog scale before meals and at bedtime, blood sugar is controlled. 10. Hypertension. Hold Lopressor. 11. Hyperlipidemia. Hold Lipitor. 12. Urinary retention. Maintain Barrow catheter, continue Flomax or 0.5 mg daily. Barrow cath apparently was not in the bladder and has been replaced. 13. History of pituitary gland resection. 14. Obstructive sleep apnea on BiPAP. 15. Gastroesophageal reflux disease. 16. 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 17. DVT prophylaxis. HA hose. Patient's been resumed on Coumadin. 18. GI prophylaxis. Protonix. DISCHARGE PLAN Most likely return to [facility] for subacute rehab. Impression and plan of care have been directed as dictated by the signing physician. Erica Alfredo nurse practitioner acting as scribe for signing physic dannie. Objective - Vital Signs Vital signs: Vital Signs Temp 96.1 F L 01/02/21 08:00 Pulse 109 H 01/02/21 10:00 Resp 14 01/02/21 10:00 BP 93/72 01/02/21 10:00 Pulse Ox 99 01/02/21 10:00 Intake & Output 01/01/21 01/02/21 01/02/21 18:59 06:59 18:59 Intake Total 1719 907.156 290 Output Total 910 865 290 Balance 809 42.156 0 Weight 95.8 kg Intake: IV 75 600 50 Sodium Chloride 0.45% 1, 75 000 ml @ 75 mls/hr IV . [id number] BRENDA with Sod Bicarb Syr 8.4% (1 Meq/ml ) 150 ml Rx#:[id number] Sodium Chloride 0.9% 1, 600 50 000 ml @ 50 mls/hr IV . Q20H BRENDA Rx#:[id number] Intake, IV Titration 804 187.156 Amount Norepinephrine 4 mg In 254 137.156 Sodium Chloride 0.9% 250 ml @ 0.05 MCG/KG/MIN 18. 078 mls/hr IV .Q14H4M BRENDA Rx#:[id number] Sodium Chloride 0.9% 1, 550 50 000 ml @ 50 mls/hr IV . Q20H BRENDA Rx#:[id number] Oral 840 120 240 Output: Urine 910 865 290 Other: Voiding Method Indwelling Catheter Indwelling Catheter Indwelling Catheter # Voids 1 - Labs CBC & Chem 7: 01/02/21 05:33 01/02/21 05:33 Labs: Abnormal Lab Results - Last 24 Hours (Table) 01/01/21 01/01/21 01/01/21 Range/Units 11:47 16:35 19:50 WBC (3.8-10.6) k/uL RBC (4.30-5.90) m/uL Hgb (13.0-17.5) gm/dL Hct (39.0-53.0) % MCV (80.0-100.0) fL MCHC (31.0-37.0) g/dL RDW (11.5-15.5) % PT (9.0-12.0) sec INR (<1.2) Sodium (137-145) mmol/L BUN (9-20) mg/dL Creatinine (0.66-1.25) mg/dL Glucose (74-99) mg/dL POC Glucose (mg/dL) 131 H 176 H 144 H (75-99) mg/dL Plasma Lactic Acid Juan (0.7-2.0) mmol/L Calcium (8.4-10.2) mg/dL Total Bilirubin (0.2-1.3) mg/dL AST (17-59) U/L ALT (4-49) U/L Alkaline Phosphatase (38-126) U/L Lactate Dehydrogenase (313-618) U/L Total Protein (6.3-8.2) g/dL Albumin (3.5-5.0) g/dL Lipase (23-300) U/L 01/02/21 01/02/21 01/02/21 Range/Units 05:33 05:33 05:33 WBC 10.8 H (3.8-10.6) k/uL RBC 3.46 L (4.30-5.90) m/uL Hgb 10.6 L (13.0-17.5) gm/dL Hct 34.7 L (39.0-53.0) % MCV 100.3 H (80.0-100.0) fL MCHC 30.5 L (31.0-37.0) g/dL RDW 16.1 H (11.5-15.5) % PT 22.1 H (9.0-12.0) sec INR 2.3 H (<1.2) Sodium 131 L (137-145) mmol/L BUN 60 H (9-20) mg/dL Creatinine 1.41 H (0.66-1.25) mg/dL Glucose 132 H (74-99) mg/dL POC Glucose (mg/dL) (75-99) mg/dL Plasma Lactic Acid Juan (0.7-2.0) mmol/L Calcium 7.8 L (8.4-10.2) mg/dL Total Bilirubin 3.5 H (0.2-1.3) mg/dL AST 449 H (17-59) U/L ALT 684 H (4-49) U/L Alkaline Phosphatase 194 H (38-126) U/L Lactate Dehydrogenase 1192 H (313-618) U/L Total Protein 5.0 L (6.3-8.2) g/dL Albumin 2.6 L (3.5-5.0) g/dL Lipase (23-300) U/L 01/02/21 01/02/21 01/02/21 Range/Units 05:33 05:33 06:12 WBC (3.8-10.6) k/uL RBC (4.30-5.90) m/uL Hgb (13.0-17.5) gm/dL Hct (39.0-53.0) % MCV (80.0-100.0) fL MCHC (31.0-37.0) g/dL RDW (11.5-15.5) % PT (9.0-12.0) sec INR (<1.2) Sodium (137-145) mmol/L BUN (9-20) mg/dL Creatinine (0.66-1.25) mg/dL Glucose (74-99) mg/dL POC Glucose (mg/dL) 105 H (75-99) mg/dL Plasma Lactic Acid Juan 2.1 H* (0.7-2.0) mmol/L Calcium (8.4-10.2) mg/dL Total Bilirubin (0.2-1.3) mg/dL AST (17-59) U/L ALT (4-49) U/L Alkaline Phosphatase (38-126) U/L Lactate Dehydrogenase (313-618) U/L Total Protein (6.3-8.2) g/dL Albumin (3.5-5.0) g/dL Lipase 302 H (23-300) U/L 01/02/21 Range/Units 09:30 WBC (3.8-10.6) k/uL RBC (4.30-5.90) m/uL Hgb (13.0-17.5) gm/dL Hct (39.0-53.0) % MCV (80.0-100.0) fL MCHC (31.0-37.0) g/dL RDW (11.5-15.5) % PT (9.0-12.0) sec INR (<1.2) Sodium (137-145) mmol/L BUN (9-20) mg/dL Creatinine (0.66-1.25) mg/dL Glucose (74-99) mg/dL POC Glucose (mg/dL) (75-99) mg/dL Plasma Lactic Acid Juan 3.1 H* (0.7-2.0) mmol/L Calcium (8.4-10.2) mg/dL Total Bilirubin (0.2-1.3) mg/dL AST (17-59) U/L ALT (4-49) U/L Alkaline Phosphatase (38-126) U/L Lactate Dehydrogenase (313-618) U/L Total Protein (6.3-8.2) g/dL Albumin (3.5-5.0) g/dL Lipase (23-300) U/L Microbiology - Last 24 Hours (Table) 12/31/20 03:39 Blood Culture - Preliminary Blood No Growth after 48 hours 12/31/20 10:10 Urine Culture - Preliminary Urine,Voided Gram Neg Bacilli
[2021-01-02] MEDS ORDERED: FUROSEMIDE 10 MG/ML 4 ML VIAL IV STA (12:15)
[2021-01-02] MEDS: FUROSEMIDE 40 MG TAB PO SCH (12:18)
[2021-01-02] MEDS: FERROUS SULFATE 325 MG TAB PO SCH (12:30)
[2021-01-02 12:38] LABS: Glucose,Whole Blood 132 mg/dL (75-99)
--- NOTE | 2021-01-02 14:28 | P.PN ---
Subjective Progress Note Date: 01/02/21 Principal diagnosis: Bilateral pleural effusion The patient is a pleasant 80-year-old gentleman with a past medical history significant for coronary artery disease and status post CABG as well as permanent atrial fibrillation as well as multiple comorbid conditions was admitted to the hospital with increasing shortness of breath. the patient was seen this afternoon. He just took a shower. he is tired and has low motivation to get up and around. He still any mattress. Chest examination revealed diminished breathing sounds bilaterally seems to be more prominent on the left than the right. Currently he is on Lasix IV and nephrology continues to be on the case. He is off norepinephrine. Objective - Vital Signs Vital signs: Vital Signs Temp 96.1 F L 01/02/21 08:00 Pulse 113 H 01/02/21 14:00 Resp 18 01/02/21 14:00 BP 103/64 01/02/21 14:00 Pulse Ox 96 01/02/21 14:00 Intake & Output 01/01/21 01/02/21 01/02/21 18:59 06:59 18:59 Intake Total 1719 907.156 420 Output Total 910 865 290 Balance 809 42.156 130 Weight 95.8 kg Intake: IV 75 600 60 Sodium Chloride 0.45% 1, 75 000 ml @ 75 mls/hr IV . [id number] BRENDA with Sod Bicarb Syr 8.4% (1 Meq/ml ) 150 ml Rx#:[id number] Sodium Chloride 0.9% 1, 600 60 000 ml @ 50 mls/hr IV . Q20H BRENDA Rx#:[id number] Intake, IV Titration 804 187.156 Amount Norepinephrine 4 mg In 254 137.156 Sodium Chloride 0.9% 250 ml @ 0.05 MCG/KG/MIN 18. 078 mls/hr IV .Q14H4M BRENDA Rx#:[id number] Sodium Chloride 0.9% 1, 550 50 000 ml @ 50 mls/hr IV . Q20H BRENDA Rx#:[id number] Oral 840 120 360 Output: Urine 910 865 290 Other: Voiding Method Indwelling Catheter Indwelling Catheter Indwelling Catheter # Voids 1 - Constitutional General appearance: Present: no acute distress - Respiratory Respiratory: bilateral: diminished - Cardiovascular Rhythm: irregularly irregular Heart sounds: normal: S1, S2 - Labs CBC & Chem 7: 10/22/21 05:33 01/02/21 05:33 Labs: Abnormal Lab Results - Last 24 Hours (Table) 01/01/21 01/01/21 01/02/21 Range/Units 16:35 19:50 05:33 WBC (3.8-10.6) k/uL RBC (4.30-5.90) m/uL Hgb (13.0-17.5) gm/dL Hct (39.0-53.0) % MCV (80.0-100.0) fL MCHC (31.0-37.0) g/dL RDW (11.5-15.5) % PT 22.1 H (9.0-12.0) sec INR 2.3 H (<1.2) Sodium (137-145) mmol/L BUN (9-20) mg/dL Creatinine (0.66-1.25) mg/dL Glucose (74-99) mg/dL POC Glucose (mg/dL) 176 H 144 H (75-99) mg/dL Plasma Lactic Acid Juan (0.7-2.0) mmol/L Calcium (8.4-10.2) mg/dL Total Bilirubin (0.2-1.3) mg/dL AST (17-59) U/L ALT (4-49) U/L Alkaline Phosphatase (38-126) U/L Lactate Dehydrogenase (313-618) U/L Total Protein (6.3-8.2) g/dL Albumin (3.5-5.0) g/dL Lipase (23-300) U/L 01/02/21 01/02/21 01/02/21 Range/Units 05:33 05:33 05:33 WBC 10.8 H (3.8-10.6) k/uL RBC 3.46 L (4.30-5.90) m/uL Hgb 10.6 L (13.0-17.5) gm/dL Hct 34.7 L (39.0-53.0) % MCV 100.3 H (80.0-100.0) fL MCHC 30.5 L (31.0-37.0) g/dL RDW 16.1 H (11.5-15.5) % PT (9.0-12.0) sec INR (<1.2) Sodium 131 L (137-145) mmol/L BUN 60 H (9-20) mg/dL Creatinine 1.41 H (0.66-1.25) mg/dL Glucose 132 H (74-99) mg/dL POC Glucose (mg/dL) (75-99) mg/dL Plasma Lactic Acid Juan 2.1 H* (0.7-2.0) mmol/L Calcium 7.8 L (8.4-10.2) mg/dL Total Bilirubin 3.5 H (0.2-1.3) mg/dL AST 449 H (17-59) U/L ALT 684 H (4-49) U/L Alkaline Phosphatase 194 H (38-126) U/L Lactate Dehydrogenase 1192 H (313-618) U/L Total Protein 5.0 L (6.3-8.2) g/dL Albumin 2.6 L (3.5-5.0) g/dL Lipase (23-300) U/L 01/02/21 01/02/21 01/02/21 Range/Units 05:33 06:12 09:30 WBC (3.8-10.6) k/uL RBC (4.30-5.90) m/uL Hgb (13.0-17.5) gm/dL Hct (39.0-53.0) % MCV (80.0-100.0) fL MCHC (31.0-37.0) g/dL RDW (11.5-15.5) % PT (9.0-12.0) sec INR (<1.2) Sodium (137-145) mmol/L BUN (9-20) mg/dL Creatinine (0.66-1.25) mg/dL Glucose (74-99) mg/dL POC Glucose (mg/dL) 105 H (75-99) mg/dL Plasma Lactic Acid Juan 3.1 H* (0.7-2.0) mmol/L Calcium (8.4-10.2) mg/dL Total Bilirubin (0.2-1.3) mg/dL AST (17-59) U/L ALT (4-49) U/L Alkaline Phosphatase (38-126) U/L Lactate Dehydrogenase (313-618) U/L Total Protein (6.3-8.2) g/dL Albumin (3.5-5.0) g/dL Lipase 302 H (23-300) U/L 01/02/21 Range/Units 12:37 WBC (3.8-10.6) k/uL RBC (4.30-5.90) m/uL Hgb (13.0-17.5) gm/dL Hct (39.0-53.0) % MCV (80.0-100.0) fL MCHC (31.0-37.0) g/dL RDW (11.5-15.5) % PT (9.0-12.0) sec INR (<1.2) Sodium (137-145) mmol/L BUN (9-20) mg/dL Creatinine (0.66-1.25) mg/dL Glucose (74-99) mg/dL POC Glucose (mg/dL) 132 H (75-99) mg/dL Plasma Lactic Acid Juan (0.7-2.0) mmol/L Calcium (8.4-10.2) mg/dL Total Bilirubin (0.2-1.3) mg/dL AST (17-59) U/L ALT (4-49) U/L Alkaline Phosphatase (38-126) U/L Lactate Dehydrogenase (313-618) U/L Total Protein (6.3-8.2) g/dL Albumin (3.5-5.0) g/dL Lipase (23-300) U/L Microbiology - Last 24 Hours (Table) 12/31/20 03:39 Blood Culture - Preliminary Blood No Growth after 48 hours 12/31/20 10:10 Urine Culture - Preliminary Urine,Voided Gram Neg Bacilli Assessment and Plan Assessment: Assessment #1 coronary artery disease and status post CABG #2 bilateral pleural effusion #3 mild cardiomyopathy #4 permanent atrial fibrillation #5 multiple comorbid conditions Plan #1 continue the current dose of Lasix by mouth #2 continue monitor the kidney function and electrolytes #3 follow-up with the patient
[2021-01-02 16:55] LABS: Glucose,Whole Blood 140 mg/dL (75-99)
[2021-01-02] MEDS ORDERED: POTASSIUM CHLORIDE ER 20 MEQ TAB.ER PO SCH (17:00)
[2021-01-02] MEDS: ONDANSETRON 4 MG/2 ML VIAL IVP PRN (17:06)
[2021-01-02] MEDS: ASPIRIN 81 MG PO SCH (17:09)
[2021-01-02] MEDS: ASCORBIC ACID 500 MG TAB PO SCH (17:10)
[2021-01-02] MEDS: CALCIUM CARBONATE 500 MG CHEWABLE PO SCH (17:10)
[2021-01-02] MEDS: CHOLECALCIFEROL 25 MCG (1000 IU) TABLET PO SCH (17:10)
[2021-01-02] MEDS: MIRTAZAPINE 15 MG TAB PO SCH (17:11)
[2021-01-02] MEDS: LIDOCAINE 5% PATCH TOPICAL SCH (17:27)
[2021-01-02] MEDS ORDERED: RIVAROXABAN 15 MG TAB PO SCH (17:30)
[2021-01-02] MEDS ORDERED: WARFARIN 2 MG TAB PO ONE (18:00)
[2021-01-02] MEDS: NOREPINEPHRINE 4 MG in SODIUM CHLORIDE 0.9% 250 ML IV SCH (19:25)
--- NOTE | 2021-01-02 19:29 | PN ---
PROGRESS NOTE The patient is seen for followup for acute kidney injury. He was found to have obstructive uropathy with bilateral hydronephrosis with malpositioning of the Barrow catheter. There is also a component of acute tubular necrosis, currently nonoliguric with improved renal function and good urine output. The patient's blood pressure remains low. He had been on a small dose of Levophed. He was also maintained on IV fluids which were discontinued this morning. The patient has been sitting in bed. He denies any significant complaints except for weakness. PHYSICAL EXAMINATION: On examination today, blood pressure is 84/69, heart rate 118-98 per minute, he is afebrile. Examination of the heart S1, S2. Examination of the lungs, bilateral breath sounds are heard. Decreased breath sounds at the bases. Abdomen is soft, obese with abdominal wall edema. Examination of lower extremities shows edema 2 to 3+ bilaterally. 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 LAB: Show sodium 131, potassium 3.7, BUN 60, serum creatinine 1.4, hemoglobin 10.6 g/dL. ASSESSMENT: 1. Acute kidney injury, obstructive uropathy as well as ATN secondary to hypotension and hypoperfusion, currently with good urine output and improvement in serum creatinine level. There is an element of volume overload and third spacing. The patient had been maintained on IV fluids. I will discontinue the saline for now and we will continue with the Lasix. 2. Lactic acidosis associated with hypotension hypoperfusion, improving. 3. Status post coronary artery bypass surgery on 12/16/2020. 4. Shock liver with significantly elevated liver enzymes, now improving. 5. Atrial fibrillation with RVR. The heart rate is slightly improved, Lopressor was decreased to 12.5 mg twice a day and his blood pressure is tolerating that a bit better. 6. Hypervolemic hyponatremia and due to urine retention, now improved. PLAN: Can discontinue the saline. Change Lasix to 40 mg IV daily. Continue with Barrow catheter. Repeat labs in a.m. Encourage increased oral intake. Increase activity as tolerated. MMODL / IJN: [id number] /
[2021-01-02 19:30] LABS: Glucose,Whole Blood 144 mg/dL (75-99)
[2021-01-02] MEDS: MELATONIN 5 MG TABLET PO SCH (19:39)
[2021-01-02] MEDS: SENNOSIDES-DOCUSATE SODIUM 1 EACH TAB PO SCH (19:39)
[2021-01-02] MEDS: MONTELUKAST 10 MG TAB PO SCH (19:39)
[2021-01-02] MEDS: LATANOPROST 0.005% OPHTH DROPS 2.5 ML BTL BOTH EYES SCH (19:45)
[2021-01-03 05:03] LABS: Anisocytosis Slight; Basophils % (A) 0 %; Eosinophils % (A) 1 %; HCT 34.5 % (39.0-53.0); HGB 10.6 gm/dL (13.0-17.5); Hypochromasia Marked; Lymphocytes # (A) 0.9 k/uL (1.0-4.8); Lymphocytes % (A) 11 %; MCHC 30.7 g/dL (31.0-37.0); MCV 97.6 fL (80.0-100.0); Macrocytosis Slight; Monocytes # (A) 0.6 k/uL (0-1.0); Monocytes % (A) 7 %; Neutrophils # (A) 6.7 k/uL (1.3-7.7); Neutrophils % (A) 80 %; Platelet Count 220 k/uL (150-450); Poikilocytosis Moderate; RBC 3.53 m/uL (4.30-5.90); RDW 16.2 % (11.5-15.5); WBC 8.4 k/uL (3.8-10.6)
[2021-01-03 05:35] LABS: INR 3.1 (<1.2); Prothrombin Time 29.6 sec (9.0-12.0)
[2021-01-03 05:37] LABS: Albumin 2.7 g/dL (3.5-5.0); Calcium 8.2 mg/dL (8.4-10.2); Potassium 4.2 mmol/L (3.5-5.1)
[2021-01-03 06:32] LABS: Glucose,Whole Blood 145 mg/dL (75-99)
[2021-01-03] MEDS: PANTOPRAZOLE 40 MG TABLET PO SCH (06:32)
[2021-01-03] MEDS: INSULIN ASPART (NovoLOG) 100 UNIT/ML VIAL SQ SCH ×4 (06:32→20:01)
[2021-01-03] MEDS: IPRATROPIUM-ALBUTEROL 3 ML NEB INHALATION SCH ×4 (08:19→19:33)
--- NOTE | 2021-01-03 08:20 | P.PN ---
Subjective Progress Note Date: 01/03/21 80-year-old male patient being seen in follow-up on 12/29/2020. He was hospitalized yesterday for acute hypoxic respiratory failure, shortness of breath, fluid overload. The patient is post four-vessel bypass surgery and the patient was discharged from the hospital on 12/25/2012 after a nonsmoker for t otal of 11 days. He has history of atrial fibrillation, diabetes mellitus, hypertension and hyperlipidemia and BPH. The patient had some issues with generalized weakness and debility postop. He continued to have some degree of shortness of breath with interval worsening. He came into the emergency department and was quite tachypneic and short of breath. He was transferred to the intensive care unit and he was off her diuretics and BiPAP therapy for restorative support. His BUN was at 62 with a creatinine of 1.7 and his chest x-ray showed cardiomegaly and bilateral pleural effusion. She was started on diuretics. The patient has chronic atrial fibrillation the patient was also discharged home on Lasix. The patient had a lactic acid level of 2.1 which dropped subsequently to 1.7. LFTs are normal with an elevated AST and ALT, improving and the troponin was 0.144 and 0.1. Respectively 2. Lipase level was 468. ProBNP level was 5370. COVID-19 testing was negative. Initial sodium level was 128. Creatinine was 1.68. INR was at 5.6 with a PT of 54 while the patient on Coumadin. Coumadin was maintained on hold.Echocardiogram showed a moderate concentric LVH in addition to mildly impaired left a ejection fraction of around 45-50%. No significant valvular abnormalities. No significant pulmonary hypertension. On today's evaluation, the patient seems to be a bit more alert and awake compared to yesterday. His at 12.6. Creatinine is still impaired with a creatinine of 1.8. The patient is receiving Lasix 40 mg IV every 8 hours. Her net fluid balance over the past 24 hours is -1.2 L. Chest x-ray from today still showing bilateral pleural effusions and MARKING OF THE PLEURAL EFFUSION HAS ALREADY BEEN DONE. THERE IS ALSO PATCHY PERIHILAR AND BASILAR ATELECTATIC CHANGES WITHOUT ANY MAJOR INTERVAL CHANGE COMPARED TO YESTERDAY. CARDIAC RHYTHM REMAINS IRREGULAR CONSISTENT WITH ATRIAL FIBRILLATION. The patient also has an INR of 3.0, slightly improved compared to yesterday. On today's evaluation of 12/30/2020, I'm seeing the patient for a follow-up. He is able to sit up on a chair. Is calm and comfortable. His breathing is still shallow and the follow-up chest x-ray from today showing bilateral pleural effusion slightly worse on the right. Ultrasound of markings of the right chest has been done. Meanwhile, the patient was given vitamin K yesterday total of 2.5 mg IV and the follow-up INR was down to 1.9. I'm going to proceed with a right-sided thoracentesis today. He is currently on 2 L about 2 by nasal cannula. He is using incentive spirometer and he is getting approximately thousand on his INRs. His cardiac rhythm is still atrial fibrillation. The patient remains on a combination of oral Cardizem and metoprolol for rate contro l. His antibiotic patient is currently on hold. He remains on IV Lasix and the patient is receiving Lasix 40 mg IV on a daily basis. Her net fluid balance over the past 24 hours has been -1.2 L. White cell count is at 4.2 with a hemoglobin of 9.9. His LFTs are essentially improving. AST is down to 280, ALT is down to 535, alkaline phosphatase is at 295. Patient is awake and alert. No other significant complaints otherwise for now. The patient is post four-vessel bypass surgery. The patient also has chronic atrial fibrillation, diabetes mellitus, hypertension and hyperlipidemia. Overall, he remains quite weak and somewhat debilitated. LFTs are improving, creatinine is at 2.1. On 12/31/2020, the patient is being seen for a follow-up. After being transferred to a medical floor, the patient got transferred back to the intensive care unit as the patient was becoming hypotensive. Note that the patient underwent bilateral thoracentesis yesterday were a total of 650 mL of fluid aspirated from the right and approximately 1.2 L of fluid was aspirated from the left. No complications following the procedure. No pneumothorax. The patient adequate expansion of both lungs. Overnight, the patient became hypotensive and he got transferred to the intensive care unit. Urine output was dropping. Note that there was a problem with his Barrow catheter with the balloon being within the prostate. Ex appropriate positioning Barrow catheter was done. The catheter was advanced and there was adequate amount of urine output initially and subsequently the urine output tapered off. For now, the patient is hypotensive. He received a total of 1.5 L of normal saline overnight. Currently is receiving normal saline at rate of 75 mL an hour. Urine output is no order of 20-30 mL an hour. The patient overnight was also placed on pressors and norepinephrine infusion is running at 0.06 mcg/kg per minute. The patient is also on BiPAP for respiratory support and the current settings are 12/5 cm of water with an FiO2 of 40%. The patient is calm and comfortable and the patient is able to generate adequate tidal volumes of 650 with a rate of 20 and a minute ventilation of 13.5. The blood work from today shows a component of anion gap metabolic acidosis. The serum bicarbonate is down to 10 and anion gap is up to 19. His sodium level has dropped down to 125. The patient has developed an acute kidney injury probably related to an obstructive uropathy. Creatinine is up to 2.75. He does have a bicarb deficit also. The blood gas showed a pH of 7.43 with a pCO2 of 24 and pO2 of 129 and this was done on the above-mentioned BiPAP settings. He is awake. He is alert. Surgical wound site is dry clean and intact. He is arousable and is following commands. Current pulse ox is 99% and the patient is able to follow commands and answer questions appropriately. White cell count at 16.5. No signs of any infection. INR today is at 2.9 and the patient was given warfarin yesterday. As far as is LFTs, there is still elevated with a AST of 1200 to an ALT of 987. The bilirubin is at 5.8 consistent with a cholestatic picture with a alkaline phosphatase of 239. Serum cortisols at 27. 01/01/2021, the patient is sitting up on a chair awake and alert. He spent the day off BiPAP and overnight he was off the BiPAP. Currently is on oxygen at 2 L per minute nasal cannula. Chest x-ray shows resolution of the right-sided pleural effusion, there is a small left-sided pleural effusion present. He is post bilateral thoracentesis. In terms of hemodynamics, he is on low dose of pressors and norepinephrine running at 0.085 mg/kg per minute. He remains in atrial fibrillation. Slightly tachycardic. He is off diuretics and is producing adequate amount of urine output. Creatinine is improving and is currently down to 2.3 with a sodium level improving at 130 and hemoglobin of 10.3. The patient is off Lasix. The patient will be started back on a low-dose metoprolol for rate control. His INR is therapeutic at 2.7 and the patient was not given warfarin yesterday. This will be held for today to. Lasix is currently on hold. The renal function continues to improve. Mentation is adequate. No focal neurological deficit. Barrow cath is in place. He is still weak and he needs aggressive rehabilitation. 01/02/2021, the patient feels weak and still not fully recovered. Nevertheless, all of his blood work showing improvement. Since yesterday, the patient is still on oxygen at 2 L per minute nasal cannula. His chest x-ray showing small left-sided pleural effusion and limited infiltration of the lung bases. The patient was found to have gram-negative bacillus in the urine and the patient was started on IV Rocephin. He is on no pressors. He is on oral Lasix. His renal function continues to improve in the creatinine is currently down to 1.4 with a mean of 60. Sodium is at 131. White cell count is not elevated at 10.6. Lactic acid level is at 3.1, improving. Creatinine is at 1.4. He did have a component of shock liver which is also improving. As such, all of his blood work and progressed nicely. The patient continues to have a Barrow cath in place. The fluid balance over the past 24 hours has been in the order of +1.1 L. He is using incentive spirometer and is pulling approximately 1000. At 2020, I'm seeing the patient for follow-up. Doing well. No specific complaints. He had a good night sleep yesterday. He is waking up today with increased level of alertness. He is on room air oxygen. Chest x-ray showing a small left-sided pleural effusion. White cell count of 8.4 hemoglobin of 10.6. Creatinine is still abnormal at 1.4 although is improving. The rest of the electrolytes are normal. Shock liver is also improving. The patient's INR currently is therapeutic at 3.1. Cardiac rhythm is atrial fibrillation with a controlled rate. Blood pressure remains soft. Is tolerating diet. Barrow catheter in place. Urine culture came back positive for pseudomonas aeruginosa and the appropriate antibiotic adjustments will be done. Objective - Vital Signs Vital signs: Vital Signs Temp 97.6 F 01/03/21 04:00 Pulse 137 H 01/03/21 07:00 Resp 12 01/03/21 07:00 BP 99/71 01/03/21 07:00 Pulse Ox 95 01/03/21 07:00 Intake & Output 01/02/21 01/03/21 01/03/21 18:59 06:59 18:59 Intake Total 1050 0 Output Total 745 585 Balance 305 -585 Weight 97.114 kg Intake: IV 90 0 Sodium Chloride 0.9% 1, 90 0 000 ml @ 50 mls/hr IV . Q20H BRENDA Rx#:[id number] Oral 960 Output: Urine 745 585 Other: Voiding Method Indwelling Catheter Indwelling Catheter # Voids 1 - Exam Mild respiratory distress with increased respiratory rate, oriented 3. The patient is currently on RA 02 HEENT examination is grossly unremarkable. Neck supple. Full range of motion. No adenopathy thyromegaly or neck vein distention. Cardiovascular examination reveals irregular rhythm rate. S1-S2 normal. No S3 or S4. No discernible murmur noted. The rhythm is irregular consistent with atrial fibrillation. There is also systolic ejection murmur grade 2/6 heard throughout the precordium. Lungs reveal diffuse bibasilar crackles. There is dullness at the bases. Scattered moderate rhonchi are noted. No wheezes appreciated. Overall, there is improvement in her entry bilaterally. He is post bilateral thoracentesis. Abdomen soft bowel sounds are heard. No masses or tenderness. Extremities are intact. No cyanosis or clubbing. 1+ edema is noted.There is adequate pulses in lower extremities bilaterally. Skin is without rash or lesion. Neurologic examination is brief but nonfocal. The patient is lethargic, sleepy yet arousable. He follows simple commands. Neurologic exam remains nonfocal. - Labs CBC & Chem 7: 01/03/21 04:30 01/03/21 04:30 Labs: Abnormal Lab Results - Last 24 Hours (Table) 01/02/21 01/02/21 01/02/21 Range/Units 05:33 09:30 12:37 RBC (4.30-5.90) m/uL Hgb (13.0-17.5) gm/dL Hct (39.0-53.0) % MCHC (31.0-37.0) g/dL RDW (11.5-15.5) % Lymphocytes # (1.0-4.8) k/uL PT (9.0-12.0) sec INR (<1.2) Sodium (137-145) mmol/L BUN (9-20) mg/dL Creatinine (0.66-1.25) mg/dL Glucose (74-99) mg/dL POC Glucose (mg/dL) 132 H (75-99) mg/dL Plasma Lactic Acid Juan 3.1 H* (0.7-2.0) mmol/L Calcium (8.4-10.2) mg/dL Total Bilirubin (0.2-1.3) mg/dL AST (17-59) U/L ALT (4-49) U/L Alkaline Phosphatase (38-126) U/L Total Protein (6.3-8.2) g/dL Albumin (3.5-5.0) g/dL Lipase 302 H (23-300) U/L 01/02/21 01/02/21 01/03/21 Range/Units 16:44 19:29 04:30 RBC 3.53 L (4.30-5.90) m/uL Hgb 10.6 L (13.0-17.5) gm/dL Hct 34.5 L (39.0-53.0) % MCHC 30.7 L (31.0-37.0) g/dL RDW 16.2 H (11.5-15.5) % Lymphocytes # 0.9 L (1.0-4.8) k/uL PT (9.0-12.0) sec INR (<1.2) Sodium (137-145) mmol/L BUN (9-20) mg/dL Creatinine (0.66-1.25) mg/dL Glucose (74-99) mg/dL POC Glucose (mg/dL) 140 H 144 H (75-99) mg/dL Plasma Lactic Acid Juan (0.7-2.0) mmol/L Calcium (8.4-10.2) mg/dL Total Bilirubin (0.2-1.3) mg/dL AST (17-59) U/L ALT (4-49) U/L Alkaline Phosphatase (38-126) U/L Total Protein (6.3-8.2) g/dL Albumin (3.5-5.0) g/dL Lipase (23-300) U/L 01/03/21 01/03/21 01/03/21 Range/Units 04:30 04:30 06:30 RBC (4.30-5.90) m/uL Hgb (13.0-17.5) gm/dL Hct (39.0-53.0) % MCHC (31.0-37.0) g/dL RDW (11.5-15.5) % Lymphocytes # (1.0-4.8) k/uL PT 29.6 H (9.0-12.0) sec INR 3.1 H (<1.2) Sodium 132 L (137-145) mmol/L BUN 58 H (9-20) mg/dL Creatinine 1.48 H (0.66-1.25) mg/dL Glucose 118 H (74-99) mg/dL POC Glucose (mg/dL) 145 H (75-99) mg/dL Plasma Lactic Acid Juan (0.7-2.0) mmol/L Calcium 8.2 L (8.4-10.2) mg/dL Total Bilirubin 3.0 H (0.2-1.3) mg/dL AST 319 H (17-59) U/L ALT 578 H (4-49) U/L Alkaline Phosphatase 190 H (38-126) U/L Total Protein 5.0 L (6.3-8.2) g/dL Albumin 2.7 L (3.5-5.0) g/dL Lipase (23-300) U/L Microbiology - Last 24 Hours (Table) 12/31/20 03:39 Blood Culture - Preliminary Blood No Growth after 72 hours 12/31/20 10:10 Urine Culture - Final Urine,Voided Pseudomonas aeruginosa Assessment and Plan Plan: 1 Acute hypoxemic respiratory failure, likely on the basis of fluid overload/pleural effusions. The patient is post bilateral thoracentesis. He is currently on RA of oxygen by nasal cannula. A small residual pleural effusions present on the left. Patient is post thoracentesis bilateral 2 CAD and the patient is post four-vessel bypass grafting, with discharged from the hospital on December 25. Patient had an 11 day hospital stay. Echocardiogram showed a moderate concentric LVH in addition to mildly impaired left a ejection fraction of around 45-50%. No significant valvular abnormalities. No significant pulmonary hypertension. 3 History of atrial fibrillation. Recurrent cardiac rhythm is still atrial fibrillation with a controlled rate INR is at 3.1 4 History of diabetes mellitus. 5 Hyperlipidemia. 6 hypotension recovered and the patient is currently normotensive off pressors 7 BPH 8 acute kidney injury , with worsening of the renal function and creatinine is improving , creatinine is at 1.4, stable 9 acute transaminitis secondary to above, LFTs elevated, and a declining course 10 nonspecific elevation of the lipase, consider pancreatitis 11 hyponatremia, improved 12 metabolic acidosis , recovered 13 hypertension currently on low-dose norepinephrine infusion for blood pressure control. Consider hypovolemia and the patient responded nicely to IV fluids. 14 pseudomonas aeruginosa UTI Plan: Continue IV fluids much with his KVO Currently on room air oxygen off pressors today Patient is Xarelto Cardiac rhythm is still atrial fibrillation, metoprolol 12.5 mg twice a day The kidneys showed no evidence of any hydronephrosis. Urine analysis and urine cultures are negative for nowcreatinine continues to improve Remove the Barrow catheter Switch this patient to IV cefepime Patient was given Remeron overnight which helped him with his sleep and some improvement in his mood elevation. I think that was a good choice. Keep the patient ICU continue to follow. Aggressive physical therapy. We'll continue to follow.
--- NOTE | 2021-01-03 08:24 | XR ---
EXAMINATION TYPE: XR chest 1V portable DATE OF EXAM: 01/03/2021 HISTORY: Postop CABG COMPARISON: 01/02/2021 TECHNIQUE: Single view of the chest is submitted. FINDINGS: Sternotomy wires mediastinal clips are in place. Pleural parenchymal changes left lung base remain un changed. The right lung is relatively clear. The heart is stable. Hilar and mediastinal structures are within normal limits. Degenerative changes are seen of the dorsal spine. IMPRESSION: 1. Stable postoperative appearance of the chest.
[2021-01-03] MEDS: TAMSULOSIN 0.4 MG CAP.ER.24H PO SCH (08:28)
[2021-01-03] MEDS: MIDODRINE 5 MG TAB PO SCH ×4 (08:28→17:53)
[2021-01-03] MEDS: METOPROLOL TARTRATE 12.5 MG TAB PO SCH ×2 (08:28→21:20)
[2021-01-03] MEDS: FUROSEMIDE 10 MG/ML 4 ML VIAL IV SCH ×2 (08:28→09:23)
[2021-01-03] MEDS: CEFEPIME 2 GM in SODIUM CHLORIDE 0.9% 100 ML IVPB SCH ×2 (08:29→20:01)
[2021-01-03] MEDS: LIDOCAINE 5% PATCH TOPICAL SCH (08:30)
[2021-01-03] MEDS: DILTIAZEM ORAL 30 MG TAB PO SCH ×2 (09:22→09:23)
--- NOTE | 2021-01-03 09:32 | P.PN ---
Subjective Progress Note Date: 01/03/21 Principal diagnosis: Shortness of breath, bilateral pleural effusions, acute transaminitis, and acute kidney injury. 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 The patient was seen in follow-up today 01/03/2021 at his bedside in the intensive care unit. Currently he is sitting up to the bedside chair, is awake, alert and oriented 3 and is in no acute apparent distress. This morning he denies any complaints of shortness of breath, pain or nausea. He reports he feels like he is doing well today. He remained hemodynamically stable and is currently on no inotropic or pressor support. Oxygen saturations are 93% on room air and he is achieving 1000 mL on his incentive spirometry. Chest x-ray this morning shows a small left-sided pleural effusion. Laboratory results show a WBC count 8.4, hemoglobin 10.6, platelets 220, PTT 29.6, INR 3.1, sodium 132, potassium 4.2, BUN 58, creatinine 1.48, AST 319 and ALT 578. Urine culture final results of his pseudomonas aeruginosa and his antibiotics were adjusted by pulmonary/critical care medicine today. He does remain to have a Barrow catheter in place for some history of urinary retention. Bedside telemetry showing atrial fibrillation heart rate 94 BPM. Xarelto was started yesterday for anticoagulation. Objective - Vital Signs Vital signs: Vital Signs Temp 97.6 F 01/03/21 04:00 Pulse 109 H 01/03/21 08:27 Resp 16 01/03/21 08:27 BP 93/76 01/03/21 08:00 Pulse Ox 95 01/03/21 08:00 Intake & Output 01/02/21 01/03/21 01/03/21 18:59 06:59 18:59 Intake Total 1050 0 Output Total 745 585 75 Balance 305 -585 -75 Weight 97.114 kg Intake: IV 90 0 Sodium Chloride 0.9% 1, 90 0 000 ml @ 50 mls/hr IV . Q20H [facility] Rx#:[id number] Oral 960 Output: Urine 745 585 75 Other: Voiding Method Indwelling Catheter Indwelling Catheter Indwelling Catheter # Voids 1 - Exam CONSTITUTIONAL: Sitting up to the bedside chair in the intensive care unit, appears comfortable, cooperative, no apparent acute distress. HEENT: Neck is supple, no JVD, no lymphadenopathy. RESPIRATORY: Lungs sounds essentially clear throughout, diminished to his bilateral bases, with few scattered crackles to his bilateral bases. Respirations are symmetrical and nonlabored. Currently on room air with oxygen saturations 93%. Able to achieve 1000 mL on his incentive spirometry. Strong cough. CARDIOVASCULAR: Irregular rhythm and controlled rate. S1 and S2 present, negative for S3, gallop or murmur. Sternum is stable. Palpable peripheral pulses bilaterally, +2 edema to his bilateral lower extremities and 1-2+ edema to his bilateral upper extremities. No calf pain or tenderness noted. Heart hugger in place with patient demonstrating appropriate use. Knee-high HA hose and sequential compression devices in place to his bilateral lower extremities. GASTROINTESTINAL: Abdomen soft, nontender, and slightly distended. Active bowel sounds present 4 quadrants. Tolerating diet. Passing flatus. No guarding or rigidity. Bowel movement yesterday 01/02/2021. GENITOURINARY: Barrow present draining cloudy, holly urine. Output 430 mL in the last 8 hours. INTEGUMENTARY: Skin is warm and dry with no evidence of clubbing or cyanosis. Midline sternal incision clean dry and well approximated, covered with dry intact dressing. Left lower extremity EVH sites well approximated without redness or drainage. Left arm radial artery harvest sites clean, dry and approximated. No drainage or redness is present. NEUROLOGIC: Cranial nerves II through XII intact. No focal deficits. MUSKULOSKELETAL: Able to move all extremities, strength equal bilaterally, generalized weakness. PSYCHIATRIC: Alert and oriented to person place and time, flat affect, intact judgment and insight. - Allied health notes Allied health notes reviewed: nursing - Labs CBC & Chem 7: 01/03/21 04:30 01/03/21 04:30 Labs: Abnormal Lab Results - Last 24 Hours (Table) 10/01/02/21 01/02/21 Range/Units 05:33 09:30 12:37 RBC (4.30-5.90) m/uL Hgb (13.0-17.5) gm/dL Hct (39.0-53.0) % MCHC (31.0-37.0) g/dL RDW (11.5-15.5) % Lymphocytes # (1.0-4.8) k/uL PT (9.0-12.0) sec INR (<1.2) Sodium (137-145) mmol/L BUN (9-20) mg/dL Creatinine (0.66-1.25) mg/dL Glucose (74-99) mg/dL POC Glucose (mg/dL) 132 H (75-99) mg/dL Plasma Lactic Acid Juan 3.1 H* (0.7-2.0) mmol/L Calcium (8.4-10.2) mg/dL Total Bilirubin (0.2-1.3) mg/dL AST (17-59) U/L ALT (4-49) U/L Alkaline Phosphatase (38-126) U/L Total Protein (6.3-8.2) g/dL Albumin (3.5-5.0) g/dL Lipase 302 H (23-300) U/L 01/02/21 01/02/21 01/03/21 Range/Units 16:44 19:29 04:30 RBC 3.53 L (4.30-5.90) m/uL Hgb 10.6 L (13.0-17.5) gm/dL Hct 34.5 L (39.0-53.0) % MCHC 30.7 L (31.0-37.0) g/dL RDW 16.2 H (11.5-15.5) % Lymphocytes # 0.9 L (1.0-4.8) k/uL PT (9.0-12.0) sec INR (<1.2) Sodium (137-145) mmol/L BUN (9-20) mg/dL Creatinine (0.66-1.25) mg/dL Glucose (74-99) mg/dL POC Glucose (mg/dL) 140 H 144 H (75-99) mg/dL Plasma Lactic Acid Juan (0.7-2.0) mmol/L Calcium (8.4-10.2) mg/dL Total Bilirubin (0.2-1.3) mg/dL AST (17-59) U/L ALT (4-49) U/L Alkaline Phosphatase (38-126) U/L Total Protein (6.3-8.2) g/dL Albumin (3.5-5.0) g/dL Lipase (23-300) U/L 01/03/21 01/03/21 01/03/21 Range/Units 04:30 04:30 06:30 RBC (4.30-5.90) m/uL Hgb (13.0-17.5) gm/dL Hct (39.0-53.0) % MCHC (31.0-37.0) g/dL RDW (11.5-15.5) % Lymphocytes # (1.0-4.8) k/uL PT 29.6 H (9.0-12.0) sec INR 3.1 H (<1.2) Sodium 132 L (137-145) mmol/L BUN 58 H (9-20) mg/dL Creatinine 1.48 H (0.66-1.25) mg/dL Glucose 118 H (74-99) mg/dL POC Glucose (mg/dL) 145 H (75-99) mg/dL Plasma Lactic Acid Juan (0.7-2.0) mmol/L Calcium 8.2 L (8.4-10.2) mg/dL Total Bilirubin 3.0 H (0.2-1.3) mg/dL AST 319 H (17-59) U/L ALT 578 H (4-49) U/L Alkaline Phosphatase 190 H (38-126) U/L Total Protein 5.0 L (6.3-8.2) g/dL Albumin 2.7 L (3.5-5.0) g/dL Lipase (23-300) U/L Microbiology - Last 24 Hours (Table) 12/31/20 03:39 Blood Culture - Preliminary Blood No Growth after 72 hours 12/31/20 10:10 Urine Culture - Final Urine,Voided Pseudomonas aeruginosa - Imaging and Cardiology Chest x-ray: report reviewed, image reviewed Assessment and Plan Assessment: 1. Shortness of breath, improving 2. Acute transaminitis, likely from hepatic congestion secondary to heart failure, LFTs trending down 3. Bilateral pleural effusions, drained right 650 mL, left 1200 mL 12/30/20 4. Acute kidney injury, possibly from obstructive uropathy, BUN and creatinine continued to trend down. 5. Coronary artery disease status post PCI to the LAD in 2005 and subsequent 4 vessel CABG on 12/16/2020 6. Previously preserved left ventricular function, mildly impaired left ventricular systolic function with EF 45-50% on current TTE 7. Chronic atrial fibrillation on Coumadin for anticoagulation with supratherapeutic INR on admission, status post exclusion of the left atrial appendage 8. History of hypertension 9. History of hyperlipidemia, treated 10. Diet controlled diabetes mellitus, recent hemoglobin A1c 6.2% 11. Obstructive sleep apnea on home CPAP, was not on at [facility] 12. History of pituitary tumor 13. Lifetime nonsmoker with a preoperative FEV1 91% of predicted 14. History of daily wine consumption 15. 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 Acute hypoxemic respiratory failure, likely from fluid overload 17. Metabolic acidosis, resolved 18. Urinary tract infection, urine culture positive for pseudomonas aeruginosa Plan: 1. Continue aspirin, and low-dose beta junito. Continue to hold statin until liver enzymes returned to normal. 2. Continue to hold Cardizem. 3. Continue midodrine 10 mg by mouth 3 times a day. 4. Wean O2 as tolerated. Encourage incentive spirometry is 10 times every hour while awake. Bronchodilators, BiPAP per pulmonology/critical care management. 5. Increase activity, ambulate as tolerated. PT/OT following. The patient needs much encouragement to get up to ambulate. Shower daily. 6. Will monitor daily labs and chest x-rays. 7. Avoid nephrotoxins, appreciate nephrology recommendations, Lasix per nephrology recommendations. 8. Continue sternal precautions. Heart hugger is in place. 9. Medical management of other comorbidities per primary care service 10. Urine culture showing Pseudomonas aeruginosa, antibiotic management recommendations per pulmonary infectious disease. 11. Continue Xarelto 15 mg by mouth daily. 12. Urine culture showing gram-negative bacilli, he is currently on Rocephin 1 g IV piggyback every 24 hours. 13. Encourage nutrition. 14. More recommendations to follow based on patient's clinical course. Time with Patient: Greater than 30
--- NOTE | 2021-01-03 10:23 | P.PN ---
Subjective Progress Note Date: 01/03/21 This is a 80-year-old male patient of Dr. Campos and Dr. Mullins with past medical history of chronic persistent atrial fibrillation, diabetes mellitus type 2, hypertension, hyperlipidemia, history of pituitary tumor resection, obstructive sleep apnea on BiPAP, gastroesophageal reflux disease, benign prostatic hypertrophy. He should also has history of coronary artery disease status post PCI to the LAD in 2005, heart catheterization in October 2020 found severe triple-vessel disease, subsequently admitted to the hospital for elective coronary artery bypass grafting 12/16 for four-vessel bypass MORAN to LAD, left radial artery from the aorta to the first obtuse marginal artery, reverse saphenous vein graft from the aorta to the second diagonal artery, reverse saphenous vein graft from the aorta to the posterior descending artery, endoscopic harvesting of the left radial artery, endoscopic harvesting of the left greater saphenous vein from ankle to the groin, exclusion of the left atrial appendage. During his last admission, he remained in ICU,Until December 24,, and after he was transferred to [facility] for cardiac recovery program. He has chronic atrial fibrillation, diabetes mellitus type 2, hypertension, hyperlipidemia, history of pituitary gland resection, obstructive sleep apnea, BPH with urinary retention, and delirium.. At the time of discharge, he was on Coumadin and Singulair Cardizem CD lisinopril Tylenol, he was taken off atenolol Vytorin lisinopril Imdur aspirin and nitro. -He comes back to the emergency room 2 days later, from [facility], secondary to shortness of breath, and edema. She also has worsening of her liver issues, with no visible jaundice. On ER presentation, he has indwelling Barrow catheter, there is no fever, no focal deficit, chest pain, he has shortness of breath, no vomiting, no diarrhea, no melena. In the emergency room, EKG shows atrial fibrillation heart rate of 79, no significant change compared to 927 EKG, double basic count is 15, hemoglobin of 9, sodium of 131, BUN 62 creatinine 4.7, CO2 of 19 total bili of 7.3, AST 949 ALT 881, alkaline phosphatase 411, troponin is stagnant at 0.14, and 0.148. Lactic acid level was 2.1, INR is 3.3 ultrasound of the gallbladder, shows common bile duct is normal, liver is enlarged, otherwise no other pathologies noted. Chest x-ray shows bilateral pleural effusion, basilar pulmonary infiltrates, which slightly is worse compared to previous, mild heart failure is possible, cardiomegaly some change patient is admitted to ICU with consultation to critical care medicine Dr. Vásquez, and cardiology. Chest ultrasound is ordered CMV and hepatitis panels ordered, patient would need a CAT scan of the abdomen, to eval for spleen gallbladder, Tylenol is discontinued, Lipitor is discontinued check for haptoglobin, reticulocyte count, and iron studies to evaluate portal system. 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 INR is 3. Sodium 132, potassium 4.1, chloride 100, CO2 18, BUN 65 and creatini ne 1.81, blood sugar 119. Total bilirubin 6.5, AST 493, ALT 663, alkaline phosphatase 360. INR is 3.0. Magnesium 2.6. Lipase 473. CMV nonreactive 2 draws. Hepatitis panel negative. Repeat chest x-ray reveals patchy perihilar and basilar infiltrates/atelectasis as well as pleural effusions persist without significant interval change. Dr. Cartagena has ordered for vitamin K 2.5 mg and repeat INR with plan for thoracentesis once INR is under 2. Patient is also followed by cardiology and Lasix decreased to 40 mg IV daily. Echocardiogram reveals EF of 45-60% with moderate concentric left hypertrophy, LA is severely dilated, mild to moderate mitral regurgitation, mild tricuspid regurgitation. Patient denies having any shortness of breath at rest. He denies abdominal pain, no nausea. He has had good urine output around 35 mL per hour. 12/30: Patient underwent right sided thoracentesis this morning with Dr. Cartagena with removal of approximately 650 ML's of turbid fluid. Repeat chest x- ray following procedure showed no complications. Patient was on BiPAP during the night and currently on O2 by nasal cannula at 3 L with pulse ox of 97%. Blood pressure 101/64, heart rate 81, afebrile. Patient has been seen and followed by nephrology for acute kidney injury secondary to hypotension and hypoperfusion. Plan is to continue diuresis in the patient, hold MAURA inhibitor, check cortisol level, monitor I&O's. Midodrine was increased yesterday. Repeat blood work today reveals WBC 12.2, hemoglobin 9.9 and platelet count 312. INR this morning was 1.9. Sodium 128, potassium 4.7, chloride 95, CO2 21, BUN 71 and creatinine 2.11. Blood sugars running between 109 and 134. Repeat liver function tests reveal total bilirubin 6, AST 28, ALT 535, alkaline phosphatase 295. Magnesium 2.8. Cortisol level came back at 27. Patient will be transferred to the cardiac stepdown unit. 12/31: Patient remains in the intensive care unit, today resting in bed on BiPAP. Patient became hypotensive overnight and required levo fed and was transferred back to the intensive care unit. Levo fed is currently off. Repeat blood work reveals WBC 16.5, hemoglobin 10.4, platelet count 282. Sodium 125, potassium 5.8, BUN 77 and creatinine 2.75. AST 1302, ALT 987, alkaline phosphatase 236. INR 2.9. Patient is followed by multiple consultants including cardiology, pulmonary medicine, nephrology and cardiothoracic surgery. Patient has been reaching 1000 on incentive spirometry. CAT scan of the abdomen and pelvis reveals nonobstructive left nephrolithiasis. Left pleural effusion difficult to exclude basilar pneumonia or atelectasis. There may be a posterior dependent he will. Cardiac. Coronary artery disease. Repeat chest x-ray reveals stable bibasilar infiltrate and small left pleural effusion. Renal ultrasound reveals limited assessment of left kidney demonstrate no defin ite hydronephrosis or hydroureter lysis. No hydronephrosis on the right kidney 01/01: Patient remains in the intensive care unit, resting in chair on nasal oxygen and appears to be comfortable. Pulse ox is 99%, blood pressure 80/65 and he is on levo fed. Lopressor was decreased by nephrology. Heart rate is 106, afebrile. Repeat blood work reveals WBC 10.1, hemoglobin 10.3, platelet count 291. INR 2.7. Sodium 130, potassium 4.0, chloride 94, CO2 25, BUN 76 and creatinine 2.38. Calcium 7.7. Magnesium 2.8. AST 824, ALT 920, alkaline phosphatase 210. Patient received calcium gluconate 1 g this morning. Chest x-ray reveals pleural parenchymal density left lower lobe persistent appears to be somewhat improved. 01/02: Patient remains in intensive care unit. He appears to be less jaundiced today. Urine is blood tinged. He states he is uncomfortable all over his body but no specific pain. He states he is skinny interrupted sleep throughout the night and melatonin increased. He continues not have appetite and Remeron added. Discussed with cardiothoracic surgery transitioning patient to eliquis although patient had episodes of nausea with this and to discuss other options, and also regard the posterior hemopericardium. Patient has been afebrile, heart rate 105, blood pressure 103/70, pulse ox 99% 2 L nasal cannula. Repeat blood work reveals WBC 10.8, hemoglobin 10.6, platelet count 251. Sodium 131, potassium 3.7, chloride 100, CO2 22, BUN 16 creatinine 1.41. Blood sugars are running between 105 and 144. Lactic acid 2.1. Calcium 7.8. Liver function tests are improving with total bilirubin 3.5, AST 449, ALT 684, alkaline phosphatase 194. LDH 1192. Lipase 302. 01/03: Patient evaluated this morning, remains in intensive care unit, patient is awake and alert, is currently on room air. Repeat chest x-ray shows pleural parenchymal lung base that is unchanged. Repeat blood work reveals hemoglobin 10.6, platelet count of 220, INR 3.1, sodium 132, BUN 58, creatinine 1.48, AST 319, ALT 578, Alk Phos 190. Liver function tests are improving. Urine culture showed Pseudomonas aeruginosa, he is on cefepime. Telemetry showing atrial fibrillation, he was started on xarelto yesterday for anticoagulation, and was held today for increase in INR. He was given calcium gluconate and albumin today and also a dose of Lasix Vital signs are heart rate 103, respiratory rate 13, blood pressure 92/72, 94% on room air. Objective - Vital Signs Vital signs: Vital Signs Temp 97.6 F 01/03/21 04:00 Pulse 137 H 01/03/21 07:00 Resp 12 01/03/21 07:00 BP 99/71 01/03/21 07:00 Pulse Ox 95 01/03/21 07:00 Intake & Output 01/02/21 01/03/21 01/03/21 18:59 06:59 18:59 Intake Total 1050 0 Output Total 745 585 Balance 305 -585 Weight 97.114 kg Intake: IV 90 0 Sodium Chloride 0.9% 1, 90 0 000 ml @ 50 mls/hr IV . Q20H [facility] Rx#:[id number] Oral 960 Output: Urine 745 585 Other: Voiding Method Indwelling Catheter Indwelling Catheter # Voids 1 - Constitutional General appearance: Present: average body habitus, cooperative, no acute distress - EENT Eyes: Present: abnormal pupil, edentulous, PERRLA, normal appearance ENT: Present: hearing grossly normal, normal oropharynx. Absent: pharyngeal erythema, thrush - Neck Neck: Present: normal ROM. Absent: lymphadenopathy, rigidity, stridor, thyromegaly - Respiratory Respiratory: bilateral: diminished, negative: rales, rhonchi, wheezing - Cardiovascular Rhythm: irregularly irregular Heart sounds: normal: S1, S2 - Gastrointestinal General gastrointestinal: Present: normal bowel sounds. Absent: organomegaly, splenomegaly, tenderness - Genitourinary Genitourinary Comment(s): Barrow catheter in place, draining blood tinged urine - Neurologic Neurologic: Present: CNII-XII intact. Absent: focal deficits - Musculoskeletal Musculoskeletal: Present: generalized weakness, strength equal bilaterally - Psychiatric Psychiatric: Present: A&O x's 3, appropriate affect - Labs CBC & Chem 7: 01/04/21 05:21 01/04/21 05:21 Labs: Abnormal Lab Results - Last 24 Hours (Table) 01/02/21 01/02/21 01/02/21 Range/Units 05:33 09:30 12:37 RBC (4.30-5.90) m/uL Hgb (13.0-17.5) gm/dL Hct (39.0-53.0) % MCHC (31.0-37.0) g/dL RDW (11.5-15.5) % Lymphocytes # (1.0-4.8) k/uL PT (9.0-12.0) sec INR (<1.2) Sodium (137-145) mmol/L BUN (9-20) mg/dL Creatinine (0.66-1.25) mg/dL Glucose (74-99) mg/dL POC Glucose (mg/dL) 132 H (75-99) mg/dL Plasma Lactic Acid Juan 3.1 H* (0.7-2.0) mmol/L Calcium (8.4-10.2) mg/dL Total Bilirubin (0.2-1.3) mg/dL AST (17-59) U/L ALT (4-49) U/L Alkaline Phosphatase (38-126) U/L Total Protein (6.3-8.2) g/dL Albumin (3.5-5.0) g/dL Lipase 302 H (23-300) U/L 01/02/21 01/02/21 01/03/21 Range/Units 16:44 19:29 04:30 RBC 3.53 L (4.30-5.90) m/uL Hgb 10.6 L (13.0-17.5) gm/dL Hct 34.5 L (39.0-53.0) % MCHC 30.7 L (31.0-37.0) g/dL RDW 16.2 H (11.5-15.5) % Lymphocytes # 0.9 L (1.0-4.8) k/uL PT (9.0-12.0) sec INR (<1.2) Sodium (137-145) mmol/L BUN (9-20) mg/dL Creatinine (0.66-1.25) mg/dL Glucose (74-99) mg/dL POC Glucose (mg/dL) 140 H 144 H (75-99) mg/dL Plasma Lactic Acid Juan (0.7-2.0) mmol/L Calcium (8.4-10.2) mg/dL Total Bilirubin (0.2-1.3) mg/dL AST (17-59) U/L ALT (4-49) U/L Alkaline Phosphatase (38-126) U/L Total Protein (6.3-8.2) g/dL Albumin (3.5-5.0) g/dL Lipase (23-300) U/L 01/03/21 01/03/21 01/03/21 Range/Units 04:30 04:30 06:30 RBC (4.30-5.90) m/uL Hgb (13.0-17.5) gm/dL Hct (39.0-53.0) % MCHC (31.0-37.0) g/dL RDW (11.5-15.5) % Lymphocytes # (1.0-4.8) k/uL PT 29.6 H (9.0-12.0) sec INR 3.1 H (<1.2) Sodium 132 L (137-145) mmol/L BUN 58 H (9-20) mg/dL Creatinine 1.48 H (0.66-1.25) mg/dL Glucose 118 H (74-99) mg/dL POC Glucose (mg/dL) 145 H (75-99) mg/dL Plasma Lactic Acid Juan (0.7-2.0) mmol/L Calcium 8.2 L (8.4-10.2) mg/dL Total Bilirubin 3.0 H (0.2-1.3) mg/dL AST 319 H (17-59) U/L ALT 578 H (4-49) U/L Alkaline Phosphatase 190 H (38-126) U/L Total Protein 5.0 L (6.3-8.2) g/dL Albumin 2.7 L (3.5-5.0) g/dL Lipase (23-300) U/L Microbiology - Last 24 Hours (Table) 12/31/20 03:39 Blood Culture - Preliminary Blood No Growth after 72 hours 12/31/20 10:10 Urine Culture - Final Urine,Voided Pseudomonas aeruginosa Assessment and Plan Plan: 1. Acute hypoxic respiratory failure secondary to fluid overload and pleural effusions. Patient is status post right-sided thoracentesis on 12/30 of 650 mL, continue Lasix oral 40 mg daily, monitor I&O and daily weights, monitor renal function and electrolytes. 2. 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 Lipitor and Tylenol was discontinued and held. No GI consultation is available, till January 12, monitor liver function tests. INR to be monitored daily. Patient is status post vitamin K. Liver function tests are improving. 3. Acute kidney injury and chronic kidney disease stage II secondary to hypoperfusion, obstructive uropathy with balloon not in the bladder. Consult with nephrology appreciated. Avoid nephrotoxic agents. 4. Metabolic acidosis secondary to acute kidney injury. 5. Coronary artery disease status post 4 vessel CABG 12/16. Continue current management per cardio thoracic surgery. Continue aspirin 81 mg daily, Lipitor on hold, Lopressor 12.5 mg twice daily 6. Chronic persistent atrial fibrillation. Resumed Lopressor at lower dose of 12.5 mg twice daily, patient is off Cardizem. On Xarelto 7. Acute hypoxemic respiratory failure, was on BiPAP now on room air 8. Hypovolemic hyponatremia. Continue to monitor sodium, consult with nephrology appreciated 9. Diabetes mellitus type 2. Continue with NovoLog scale before meals and at bedtime, blood sugar is controlled. 10. Hypertension. On Lopressor 12.5 twice a day 11. Hyperlipidemia. Hold Lipitor. 12. Urinary retention. Maintain Barrow catheter, continue Flomax or 0.5 mg daily. Barrow cath apparently was not in the bladder and has been replaced. 13. History of pituitary gland resection. 14. Obstructive sleep apnea on BiPAP. 15. Gastroesophageal reflux disease. 16. 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 17. DVT prophylaxis. HA domínguez. Patient's been resumed on Coumadin. 18. GI prophylaxis. Protonix. The above impression and plan of care have been discussed and directed by signing physician. Rona Preciado nurse practitioner acting as scribe for signing physician.
[2021-01-03] MEDS ORDERED: CALCIUM GLUCONATE 1 GM in SODIUM CHLORIDE 0.9% 100 ML IVPB ONE (10:30)
[2021-01-03] MEDS ORDERED: ALBUMIN HUMAN 25% 50 ML in EMPTY BAG 1 BAG IVPB ONE (10:30)
[2021-01-03 11:18] LABS: Glucose,Whole Blood 118 mg/dL (75-99)
[2021-01-03] MEDS: FERROUS SULFATE 325 MG TAB PO SCH (12:28)
--- NOTE | 2021-01-03 13:17 | P.PN ---
Subjective Progress Note Date: 01/03/21 Follow-up for acute kidney injury. Family at bedside. Sleepy today. Objective - Vital Signs Vital signs: Vital Signs Temp 96.4 F L 01/03/21 12:00 Pulse 115 H 01/03/21 12:00 Resp 18 01/03/21 12:00 BP 102/67 01/03/21 12:00 Pulse Ox 91 L 01/03/21 12:00 Intake & Output 01/02/21 01/03/21 01/03/21 18:59 06:59 18:59 Intake Total 1050 0 390 Output Total 745 585 480 Balance 305 -585 -90 Weight 97.114 kg Intake: IV 90 0 100 Cefepime 2 gm In Sodium 100 Chloride 0.9% 100 ml @ 25 mls/hr IVPB Q12HR [facility] Rx #:[id number] Sodium Chloride 0.9% 1, 90 0 000 ml @ 50 mls/hr IV . Q20H [facility] Rx#:[id number] Oral 960 Tube Feeding 290 Output: Urine 745 585 480 Other: Voiding Method Indwelling Catheter Indwelling Catheter Indwelling Catheter # Voids 1 - Exam No acute distress S1-S2 heard Decreased breath sounds Edema - Labs CBC & Chem 7: 01/03/21 04:30 01/03/21 04:30 Labs: Abnormal Lab Results - Last 24 Hours (Table) 01/02/21 01/02/21 01/03/21 Range/Units 16:44 19:29 04:30 RBC 3.53 L (4.30-5.90) m/uL Hgb 10.6 L (13.0-17.5) gm/dL Hct 34.5 L (39.0-53.0) % MCHC 30.7 L (31.0-37.0) g/dL RDW 16.2 H (11.5-15.5) % Lymphocytes # 0.9 L (1.0-4.8) k/uL PT (9.0-12.0) sec INR (<1.2) Sodium (137-145) mmol/L BUN (9-20) mg/dL Creatinine (0.66-1.25) mg/dL Glucose (74-99) mg/dL POC Glucose (mg/dL) 140 H 144 H (75-99) mg/dL Calcium (8.4-10.2) mg/dL Total Bilirubin (0.2-1.3) mg/dL AST (17-59) U/L ALT (4-49) U/L Alkaline Phosphatase (38-126) U/L Total Protein (6.3-8.2) g/dL Albumin (3.5-5.0) g/dL 01/03/21 01/03/21 01/03/21 Range/Units 04:30 04:30 06:30 RBC (4.30-5.90) m/uL Hgb (13.0-17.5) gm/dL Hct (39.0-53.0) % MCHC (31.0-37.0) g/dL RDW (11.5-15.5) % Lymphocytes # (1.0-4.8) k/uL PT 29.6 H (9.0-12.0) sec INR 3.1 H (<1.2) Sodium 132 L (137-145) mmol/L BUN 58 H (9-20) mg/dL Creatinine 1.48 H (0.66-1.25) mg/dL Glucose 118 H (74-99) mg/dL POC Glucose (mg/dL) 145 H (75-99) mg/dL Calcium 8.2 L (8.4-10.2) mg/dL Total Bilirubin 3.0 H (0.2-1.3) mg/dL AST 319 H (17-59) U/L ALT 578 H (4-49) U/L Alkaline Phosphatase 190 H (38-126) U/L Total Protein 5.0 L (6.3-8.2) g/dL Albumin 2.7 L (3.5-5.0) g/dL 01/03/21 Range/Units 11:16 RBC (4.30-5.90) m/uL Hgb (13.0-17.5) gm/dL Hct (39.0-53.0) % MCHC (31.0-37.0) g/dL RDW (11.5-15.5) % Lymphocytes # (1.0-4.8) k/uL PT (9.0-12.0) sec INR (<1.2) Sodium (137-145) mmol/L BUN (9-20) mg/dL Creatinine (0.66-1.25) mg/dL Glucose (74-99) mg/dL POC Glucose (mg/dL) 118 H (75-99) mg/dL Calcium (8.4-10.2) mg/dL Total Bilirubin (0.2-1.3) mg/dL AST (17-59) U/L ALT (4-49) U/L Alkaline Phosphatase (38-126) U/L Total Protein (6.3-8.2) g/dL Albumin (3.5-5.0) g/dL Microbiology - Last 24 Hours (Table) 12/31/20 03:39 Blood Culture - Preliminary Blood No Growth after 72 hours 12/31/20 10:10 Urine Culture - Final Urine,Voided Pseudomonas aeruginosa Assessment and Plan Assessment: #1 acute kidney injury secondary to hemodynamic ATN. Baseline creatinine 0.8- 1.0 MG per DL. #2 hypervolemic hyponatremia #3 systolic and diastolic dysfunction #4 shock delivered improving #5 atrial fibrillation with RVR Plan: #1 continue with midodrine/albumin for hemodynamic support. #2 Lasix 40 mg IV daily. #3 avoid nephrotoxic agents and hypotensive episodes. #4 ICU care
--- NOTE | 2021-01-03 15:33 | P.PN ---
Subjective Progress Note Date: 01/03/21 Principal diagnosis: Bilateral pleural effusion The patient is a pleasant 80-year-old gentleman with a past medical history significant for coronary artery disease and status post CABG as well as permanent atrial fibrillation as well as multiple comorbid conditions was admitted to the hospital with increasing shortness of breath. The patient was seen this morning. He states he is feeling slightly better. Unfortunately the heart rate continues to be not under good control and the pressure has been marginally low and sometimes below 90 mmHg. I am going to start him on amiodarone IV and switch him to amiodarone by mouth load. We are aware of his liver function tests and we'll continue to monitor that very closely. Objective - Vital Signs Vital signs: Vital Signs Temp 96.4 F L 01/03/21 12:00 Pulse 111 H 01/03/21 15:01 Resp 16 01/03/21 15:01 BP 93/78 01/03/21 15:00 Pulse Ox 96 01/03/21 15:00 Intake & Output 01/02/21 01/03/21 01/03/21 18:59 06:59 18:59 Intake Total 1050 0 390 Output Total 745 585 555 Balance 305 -585 -165 Weight 97.114 kg Intake: IV 90 0 100 Cefepime 2 gm In Sodium 100 Chloride 0.9% 100 ml @ 25 mls/hr IVPB Q12HR [facility] Rx #:[id number] Sodium Chloride 0.9% 1, 90 0 000 ml @ 50 mls/hr IV . Q20H [facility] Rx#:[id number] Oral 960 Tube Feeding 290 Output: Urine 745 585 555 Other: Voiding Method Indwelling Catheter Indwelling Catheter Indwelling Catheter # Voids 1 - Constitutional General appearance: Present: no acute distress - Respiratory Respiratory: bilateral: diminished - Cardiovascular Rhythm: irregularly irregular - Labs CBC & Chem 7: 01/03/21 04:30 01/03/21 04:30 Labs: Abnormal Lab Results - Last 24 Hours (Table) 01/02/21 01/02/21 01/03/21 Range/Units 16:44 19:29 04:30 RBC 3.53 L (4.30-5.90) m/uL Hgb 10.6 L (13.0-17.5) gm/dL Hct 34.5 L (39.0-53.0) % MCHC 30.7 L (31.0-37.0) g/dL RDW 16.2 H (11.5-15.5) % Lymphocytes # 0.9 L (1.0-4.8) k/uL PT (9.0-12.0) sec INR (<1.2) Sodium (137-145) mmol/L BUN (9-20) mg/dL Creatinine (0.66-1.25) mg/dL Glucose (74-99) mg/dL POC Glucose (mg/dL) 140 H 144 H (75-99) mg/dL Calcium (8.4-10.2) mg/dL Total Bilirubin (0.2-1.3) mg/dL AST (17-59) U/L ALT (4-49) U/L Alkaline Phosphatase (38-126) U/L Total Protein (6.3-8.2) g/dL Albumin (3.5-5.0) g/dL 01/03/21 01/03/21 01/03/21 Range/Units 04:30 04:30 06:30 RBC (4.30-5.90) m/uL Hgb (13.0-17.5) gm/dL Hct (39.0-53.0) % MCHC (31.0-37.0) g/dL RDW (11.5-15.5) % Lymphocytes # (1.0-4.8) k/uL PT 29.6 H (9.0-12.0) sec INR 3.1 H (<1.2) Sodium 132 L (137-145) mmol/L BUN 58 H (9-20) mg/dL Creatinine 1.48 H (0.66-1.25) mg/dL Glucose 118 H (74-99) mg/dL POC Glucose (mg/dL) 145 H (75-99) mg/dL Calcium 8.2 L (8.4-10.2) mg/dL Total Bilirubin 3.0 H (0.2-1.3) mg/dL AST 319 H (17-59) U/L ALT 578 H (4-49) U/L Alkaline Phosphatase 190 H (38-126) U/L Total Protein 5.0 L (6.3-8.2) g/dL Albumin 2.7 L (3.5-5.0) g/dL 01/03/21 Range/Units 11:16 RBC (4.30-5.90) m/uL Hgb (13.0-17.5) gm/dL Hct (39.0-53.0) % MCHC (31.0-37.0) g/dL RDW (11.5-15.5) % Lymphocytes # (1.0-4.8) k/uL PT (9.0-12.0) sec INR (<1.2) Sodium (137-145) mmol/L BUN (9-20) mg/dL Creatinine (0.66-1.25) mg/dL Glucose (74-99) mg/dL POC Glucose (mg/dL) 118 H (75-99) mg/dL Calcium (8.4-10.2) mg/dL Total Bilirubin (0.2-1.3) mg/dL AST (17-59) U/L ALT (4-49) U/L Alkaline Phosphatase (38-126) U/L Total Protein (6.3-8.2) g/dL Albumin (3.5-5.0) g/dL Microbiology - Last 24 Hours (Table) 12/31/20 03:39 Blood Culture - Preliminary Blood No Growth after 72 hours 12/31/20 10:10 Urine Culture - Final Urine,Voided Pseudomonas aeruginosa Assessment and Plan Assessment: Assessment #1 coronary artery disease and status post CABG #2 bilateral pleural effusion #3 mild cardiomyopathy #4 permanent atrial fibrillation with uncontrolled heart rate #5 multiple comorbid conditions Plan #1 start the patient on amiodarone bolus and drip Number to monitor the liver function very closely #3 follow-up with the patient
--- NOTE | 2021-01-03 15:49 | P.GSCN ---
History of Present Illness Consult date: 01/03/21 History of present illness: Asked to see this 80-year-old gentleman for urinary retention. The patient underwent open heart surgery for coronary bypass grafting a couple of weeks back. He had postoperative urinary retention requiring a catheter. According to the patient's and son a couple of efforts were spontaneous voiding failed. He went to [facility] rehab only to return to the hospital with shortness of breath. Apparently his catheter was not draining appropriately as it was in his prostate and had to be adjusted. It has drained freely subsequently. He is in the ICU now. Apparently he has been having problems with blood pressure including postural hypotension. Patient is on Flomax. Urologically the patient was seen in our office years past. Apparently was on Flomax when off that and when on an [id number] prostate herbal remedy and states that it helped him notably. He has not been seen in our office in some time. Review of Systems The patient is short of breath with mask oxygen most of the history is taken from the and son. There are no other obvious urologic issues Past Medical History Past Medical History: Atrial Fibrillation, Coronary Artery Disease (CAD), Diabetes Mellitus, Hyperlipidemia, Hypertension, Prostate Disorder, Sleep Apnea/CPAP/BIPAP History of Any Multi-Drug Resistant Organisms: None Reported Past Surgical History: Coronary Bypass/CABG, Heart Catheterization With Stent Additional Past Surgical History / Comment(s): pitutary tumor removed; PCI to the LAD in 2005; 4 vessel CABG 12/16/2020 Past Anesthesia/Blood Transfusion Reactions: No Reported Reaction Additional Past Anesthesia/Blood Transfusion Reaction / Comm: no hx blood transfusion Date of Last Stent Placement:: 2005 Smoking Status: Never smoker - Past Family History Father Family Medical History: Congestive Heart Failure (CHF), Coronary Artery Disease (CAD), Myocardial Infarction (AR) Additional Family Medical History / Comment(s): Premature coronary artery disease, CABG Mother Additional Family Medical History / Comment(s): Depression, committed suicide Medications and Allergies Home Medications Medication Instructions Recorded Confirmed Type Ascorbic Acid [Vitamin C] 500 mg PO DAILY@0 04/29/15 12/27/20 History Cholecalciferol [Vitamin D3 (25 25 mcg PO DAILY@1700 04/29/15 12/27/20 History Mcg = 1000 Iu)] Esomeprazole Magnesium [NexIUM] 40 mg PO DAILY@0600 04/29/15 12/27/20 History Warfarin [Coumadin] 2.5 mg PO DIRECTED 04/29/15 12/27/20 History Calcium Carbonate [Calcium] 300 mg PO DAILY@1700 04/30/16 12/27/20 History Diltiazem Cd [Cardizem CD] 120 mg PO DAILY@0800 06/10/20 12/27/20 History Latanoprost/Pf [Latanoprost 0.005% 1 drop BOTH EYES HS@2100 06/10/20 12/27/20 History Eye Drop] Montelukast [Singulair] 10 mg PO HS@2100 06/10/20 12/27/20 History Warfarin [Coumadin] 5 mg PO DIRECTED 06/10/20 12/27/20 History Acetaminophen Tab [Tylenol] 650 mg PO Q4HR PRN tab 12/25/20 12/27/20 Rx lisinopriL [Zestril] 5 mg PO DAILY@1200 tab 12/25/20 12/27/20 Rx Aspirin 81 mg PO DAILY@1700 12/27/20 12/27/20 History Atorvastatin [Lipitor] 40 mg PO HS@2100 12/27/20 12/27/20 History INSULIN ASPART (NovoLOG) [NovoLOG See Protocol SQ ACHS 12/27/20 12/27/20 History (formulary)] Ipratropium-Albuterol Nebulize 3 ml INHALATION RT-Q2H PRN 12/27/20 12/27/20 History [Duoneb 0.5 mg-3 mg/3 ml Soln] Ipratropium-Albuterol Nebulize 3 ml INHALATION RT-Q6H 12/27/20 12/27/20 History [Duoneb 0.5 mg-3 mg/3 ml Soln] Magnesium Hydroxide [Milk of 7,200 mg PO DAILY PRN 12/27/20 12/27/20 History Magnesia Concentrate] Metoprolol Tartrate [Lopressor] 75 mg PO BID@0800,1700 12/27/20 12/27/20 History Midodrine HCl 5 mg PO TID@0800,1200,1700 12/27/20 12/27/20 History Na Phos,M-B/Na Phos,Di-Ba [Fleet 133 ml RECTAL DAILY PRN 12/27/20 12/27/20 History Adult] Sennosides-Docusate Sodium 2 tab PO HS PRN 12/27/20 12/27/20 History [Senokot-S] Tamsulosin [Flomax] 0.4 mg PO DAILY@0800 12/27/20 12/27/20 History bisacodyL [Dulcolax] 10 mg RECTAL DAILY PRN 12/27/20 12/27/20 History Allergies Allergy/AdvReac Type Severity Reaction Status Date / Time No Known Allergies Allergy Verified 12/27/20 19:11 Surgical - Exam Vital Signs Temp Pulse Resp BP Pulse Ox 97.8 F 73 20 107/59 93 L 12/27/20 17:07 12/27/20 17:07 12/27/20 17:07 12/27/20 17:07 12/27/20 17:07 - General well developed, moderate distress - Eyes PERRL - ENT no hearing loss - Neck The patient is wearing a Ventimask - Respiratory Some diminished respirations - Cardiovascular Tachycardic - Abdomen Abdomen: soft, non tender - Genitourinary Marked scrotal edema with an indwelling catheter. Rectal exam is deferred at this point in time - Integumentary Marked lower extremity edema Results - Labs 01/03/21 04:30 01/03/21 04:30 Abnormal Lab Results - Last 24 Hours (Table) 01/02/21 01/02/21 01/03/21 Range/Units 16:44 19:29 04:30 RBC 3.53 L (4.30-5.90) m/uL Hgb 10.6 L (13.0-17.5) gm/dL Hct 34.5 L (39.0-53.0) % MCHC 30.7 L (31.0-37.0) g/dL RDW 16.2 H (11.5-15.5) % Lymphocytes # 0.9 L (1.0-4.8) k/uL PT (9.0-12.0) sec INR (<1.2) Sodium (137-145) mmol/L BUN (9-20) mg/dL Creatinine (0.66-1.25) mg/dL Glucose (74-99) mg/dL POC Glucose (mg/dL) 140 H 144 H (75-99) mg/dL Calcium (8.4-10.2) mg/dL Total Bilirubin (0.2-1.3) mg/dL AST (17-59) U/L ALT (4-49) U/L Alkaline Phosphatase (38-126) U/L Total Protein (6.3-8.2) g/dL Albumin (3.5-5.0) g/dL 01/03/21 01/03/21 01/03/21 Range/Units 04:30 04:30 06:30 RBC (4.30-5.90) m/uL Hgb (13.0-17.5) gm/dL Hct (39.0-53.0) % MCHC (31.0-37.0) g/dL RDW (11.5-15.5) % Lymphocytes # (1.0-4.8) k/uL PT 29.6 H (9.0-12.0) sec INR 3.1 H (<1.2) Sodium 132 L (137-145) mmol/L BUN 58 H (9-20) mg/dL Creatinine 1.48 H (0.66-1.25) mg/dL Glucose 118 H (74-99) mg/dL POC Glucose (mg/dL) 145 H (75-99) mg/dL Calcium 8.2 L (8.4-10.2) mg/dL Total Bilirubin 3.0 H (0.2-1.3) mg/dL AST 319 H (17-59) U/L ALT 578 H (4-49) U/L Alkaline Phosphatase 190 H (38-126) U/L Total Protein 5.0 L (6.3-8.2) g/dL Albumin 2.7 L (3.5-5.0) g/dL 01/03/21 Range/Units 11:16 RBC (4.30-5.90) m/uL Hgb (13.0-17.5) gm/dL Hct (39.0-53.0) % MCHC (31.0-37.0) g/dL RDW (11.5-15.5) % Lymphocytes # (1.0-4.8) k/uL PT (9.0-12.0) sec INR (<1.2) Sodium (137-145) mmol/L BUN (9-20) mg/dL Creatinine (0.66-1.25) mg/dL Glucose (74-99) mg/dL POC Glucose (mg/dL) 118 H (75-99) mg/dL Calcium (8.4-10.2) mg/dL Total Bilirubin (0.2-1.3) mg/dL AST (17-59) U/L ALT (4-49) U/L Alkaline Phosphatase (38-126) U/L Total Protein (6.3-8.2) g/dL Albumin (3.5-5.0) g/dL Microbiology - Last 24 Hours (Table) 12/31/20 03:39 Blood Culture - Preliminary Blood No Growth after 72 hours 12/31/20 10:10 Urine Culture - Final Urine,Voided Pseudomonas aeruginosa Diabetes panel 01/03/21 Range/Units 04:30 Sodium 132 L (137-145) mmol/L Potassium 4.2 (3.5-5.1) mmol/L Chloride 100 (98-107) mmol/L Carbon Dioxide 22 (22-30) mmol/L BUN 58 H (9-20) mg/dL Creatinine 1.48 H (0.66-1.25) mg/dL Glucose 118 H (74-99) mg/dL Calcium 8.2 L (8.4-10.2) mg/dL AST 319 H (17-59) U/L ALT 578 H (4-49) U/L Alkaline Phosphatase 190 H (38-126) U/L Total Protein 5.0 L (6.3-8.2) g/dL Albumin 2.7 L (3.5-5.0) g/dL Calcium panel 01/03/21 Range/Units 04:30 Calcium 8.2 L (8.4-10.2) mg/dL Albumin 2.7 L (3.5-5.0) g/dL Pituitary panel 01/03/21 Range/Units 04:30 Sodium 132 L (137-145) mmol/L Potassium 4.2 (3.5-5.1) mmol/L Chloride 100 (98-107) mmol/L Carbon Dioxide 22 (22-30) mmol/L BUN 58 H (9-20) mg/dL Creatinine 1.48 H (0.66-1.25) mg/dL Glucose 118 H (74-99) mg/dL Calcium 8.2 L (8.4-10.2) mg/dL Adrenal panel 01/03/21 Range/Units 04:30 Sodium 132 L (137-145) mmol/L Potassium 4.2 (3.5-5.1) mmol/L Chloride 100 (98-107) mmol/L Carbon Dioxide 22 (22-30) mmol/L BUN 58 H (9-20) mg/dL Creatinine 1.48 H (0.66-1.25) mg/dL Glucose 118 H (74-99) mg/dL Calcium 8.2 L (8.4-10.2) mg/dL Total Bilirubin 3.0 H (0.2-1.3) mg/dL AST 319 H (17-59) U/L ALT 578 H (4-49) U/L Alkaline Phosphatase 190 H (38-126) U/L Total Protein 5.0 L (6.3-8.2) g/dL Albumin 2.7 L (3.5-5.0) g/dL - Imaging CT scan - abdomen: report reviewed, image reviewed CT scan - pelvis: report reviewed, image reviewed US - kidney/bladder: report reviewed, image reviewed Assessment and Plan Assessment: Impression: Postoperative urinary retention. Chronic prostatism. Cardiac issues as outlined by the medical doctors and in the history. Postural hypotension. Recommendations: I recommend stopping the Flomax as I think that could be co ntributing to some of this. Do not recommend doing anything with the catheter until all his cardiac issues have been stabilized. When he is ambulating and feels better then we'll address removing the catheter and a voiding trial. Whether we will use Flomax or not will be dependent on his cardiac status. When the patient has improved dramatically and is ready for a voiding trial please fill free to contact us. Time with Patient: Greater than 30
[2021-01-03] MEDS ORDERED: DEXTROSE 5% IN WATER 100 ML with AMIODARONE 150 MG IV ONE (15:50)
[2021-01-03] MEDS ORDERED: AMIODARONE 360 MG in DEXTROSE 5% IN WATER 200 ML IV ONE ×2 (16:00)
[2021-01-03] MEDS: MIRTAZAPINE 15 MG TAB PO SCH (17:53)
[2021-01-03] MEDS: CHOLECALCIFEROL 25 MCG (1000 IU) TABLET PO SCH (17:54)
[2021-01-03] MEDS: ASPIRIN 81 MG PO SCH (17:54)
[2021-01-03] MEDS: ASCORBIC ACID 500 MG TAB PO SCH (17:54)
[2021-01-03] MEDS: CALCIUM CARBONATE 500 MG CHEWABLE PO SCH (17:54)
[2021-01-03 18:04] LABS: Glucose,Whole Blood 169 mg/dL (75-99)
[2021-01-03 19:49] LABS: Glucose,Whole Blood 166 mg/dL (75-99)
[2021-01-03] MEDS: LATANOPROST 0.005% OPHTH DROPS 2.5 ML BTL BOTH EYES SCH (19:53)
[2021-01-03] MEDS: MELATONIN 5 MG TABLET PO SCH (20:01)
[2021-01-03] MEDS: SENNOSIDES-DOCUSATE SODIUM 1 EACH TAB PO SCH (20:01)
[2021-01-03] MEDS: MONTELUKAST 10 MG TAB PO SCH (20:01)
[2021-01-03] MEDS ORDERED: AMIODARONE 450 MG in DEXTROSE 5% IN WATER 250 ML IV SCH ×2 (22:00)
[2021-01-04 05:44] LABS: Anisocytosis Slight; Basophils % (A) 0 %; Eosinophils # (A) 0.1 k/uL (0-0.7); Eosinophils % (A) 1 %; HCT 34.8 % (39.0-53.0); HGB 10.5 gm/dL (13.0-17.5); Hypochromasia Marked; Lymphocytes % (A) 12 %; MCH 29.7 pg (25.0-35.0); MCHC 30.3 g/dL (31.0-37.0); MCV 98.2 fL (80.0-100.0); Macrocytosis Slight; Mean Platelet Volume 8.3; Monocytes # (A) 0.7 k/uL (0-1.0); Monocytes % (A) 9 %; Neutrophils # (A) 6.4 k/uL (1.3-7.7); Neutrophils % (A) 76 %; Platelet Count 221 k/uL (150-450); Poikilocytosis Moderate; RBC 3.55 m/uL (4.30-5.90); RDW 16.2 % (11.5-15.5); WBC 8.3 k/uL (3.8-10.6)
[2021-01-04 05:53] LABS: Prothrombin Time 19.8 sec (9.0-12.0)
[2021-01-04 06:00] LABS: Albumin 2.9 g/dL (3.5-5.0); Calcium 8.4 mg/dL (8.4-10.2); Potassium 4.1 mmol/L (3.5-5.1); Total Bilirubin 2.8 mg/dL (0.2-1.3); Total Protein 5.4 g/dL (6.3-8.2)
[2021-01-04 06:37] LABS: Glucose,Whole Blood 168 mg/dL (75-99)
[2021-01-04] MEDS: INSULIN ASPART (NovoLOG) 100 UNIT/ML VIAL SQ SCH ×4 (06:42→23:57)
[2021-01-04] MEDS: PANTOPRAZOLE 40 MG TABLET PO SCH (06:42)
--- NOTE | 2021-01-04 07:35 | XR ---
EXAMINATION TYPE: XR chest 1V portable DATE OF EXAM: 01/04/2021 HISTORY: Shortness of breath. COMPARISON: 01/03/2021 TECHNIQUE: Single view of the chest is submitted. FINDINGS: Demonstrated are scattered senescent parenchymal change. Left basilar opacity persists which may reflect atelectasis, infiltrate and/or effusion. No significa nt change. The heart is stable. Hilar and mediastinal structures are within normal limits. Degenerative changes are seen of the dorsal spine. IMPRESSION: 1. Stable chest
--- NOTE | 2021-01-04 08:05 | P.PN ---
Subjective Progress Note Date: 01/04/21 Principal diagnosis: Bilateral pleural effusion The patient is a pleasant 80-year-old gentleman with coronary artery disease and status post coronary artery bypass grafting 4 performed 2 weeks ago as well as permanent atrial fibrillation as well as multiple comorbid conditions was admitted to the hospital with increasing shortness of breath. He was found to have left sided pleural effusion and he underwent pleurocentesis. The patient was seen this morning. Because he continues to be in atrial fibrillation with RVR and because he continues to have marginally low blood p ressure he was started on amiodarone IV yesterday. His heart rate today seems to be slightly better with a resting heart rate around 110 bpm. I'm going to DC the amiodarone IV and start the patient on annual by mouth. He does have mild abnormalities in the liver function tests related to low blood pressure few days ago but his liver function test has improved today. We'll continue monitor that since the patient currently is on amiodarone. He is somewhat not motivated to get up and around. The chest x-ray was performed today and continues to show left sided pleural effusion. He is in process of getting an ultrasound of the chest to assess the amount of effusion and possible need for pleurocentesis again. Objective - Vital Signs Vital signs: Vital Signs Temp 97.6 F 01/04/21 04:00 Pulse 92 01/04/21 06:00 Resp 14 01/04/21 06:00 BP 109/69 01/04/21 06:00 Pulse Ox 95 01/04/21 06:00 Intake & Output 01/03/21 01/04/21 01/04/21 18:59 06:59 18:59 Intake Total 390 747.776 Output Total 725 345 Balance -335 402.776 Weight 98.7 kg Intake: IV 100 600 BOLUS 500 Cefepime 2 gm In Sodium 100 100 Chloride 0.9% 100 ml @ 25 mls/hr IVPB Q12HR [facility] Rx #:[id number] Intake, IV Titration 147.776 Amount Amiodarone 360 mg In 147.776 Dextrose 5% in Water 200 ml @ 1 MG/MIN 33.333 mls/ hr IV .Q6H [facility] Rx#: [id number] Tube Feeding 290 Output: Urine 725 345 Other: Voiding Method Indwelling Catheter Indwelling Catheter - Constitutional General appearance: Present: no acute distress - Respiratory Respiratory: bilateral: diminished - Cardiovascular Rhythm: irregularly irregular - Labs CBC & Chem 7: 01/04/21 05:21 01/04/21 05:21 Labs: Abnormal Lab Results - Last 24 Hours (Table) 01/03/21 01/03/21 01/03/21 Range/Units 11:16 18:02 19:47 RBC (4.30-5.90) m/uL Hgb (13.0-17.5) gm/dL Hct (39.0-53.0) % MCHC (31.0-37.0) g/dL RDW (11.5-15.5) % PT (9.0-12.0) sec INR (<1.2) Sodium (137-145) mmol/L Carbon Dioxide (22-30) mmol/L BUN (9-20) mg/dL Creatinine (0.66-1.25) mg/dL Glucose (74-99) mg/dL POC Glucose (mg/dL) 118 H 169 H 166 H (75-99) mg/dL Total Bilirubin (0.2-1.3) mg/dL AST (17-59) U/L ALT (4-49) U/L Alkaline Phosphatase (38-126) U/L Total Protein (6.3-8.2) g/dL Albumin (3.5-5.0) g/dL 01/04/21 01/04/21 01/04/21 Range/Units 05:21 05:21 05:21 RBC 3.55 L (4.30-5.90) m/uL Hgb 10.5 L (13.0-17.5) gm/dL Hct 34.8 L (39.0-53.0) % MCHC 30.3 L (31.0-37.0) g/dL RDW 16.2 H (11.5-15.5) % PT 19.8 H (9.0-12.0) sec INR 2.0 H (<1.2) Sodium 132 L (137-145) mmol/L Carbon Dioxide 20 L (22-30) mmol/L BUN 59 H (9-20) mg/dL Creatinine 1.57 H (0.66-1.25) mg/dL Glucose 154 H (74-99) mg/dL POC Glucose (mg/dL) (75-99) mg/dL Total Bilirubin 2.8 H (0.2-1.3) mg/dL AST 188 H (17-59) U/L ALT 457 H (4-49) U/L Alkaline Phosphatase 222 H (38-126) U/L Total Protein 5.4 L (6.3-8.2) g/dL Albumin 2.9 L (3.5-5.0) g/dL 01/04/21 Range/Units 06:36 RBC (4.30-5.90) m/uL Hgb (13.0-17.5) gm/dL Hct (39.0-53.0) % MCHC (31.0-37.0) g/dL RDW (11.5-15.5) % PT (9.0-12.0) sec INR (<1.2) Sodium (137-145) mmol/L Carbon Dioxide (22-30) mmol/L BUN (9-20) mg/dL Creatinine (0.66-1.25) mg/dL Glucose (74-99) mg/dL POC Glucose (mg/dL) 168 H (75-99) mg/dL Total Bilirubin (0.2-1.3) mg/dL AST (17-59) U/L ALT (4-49) U/L Alkaline Phosphatase (38-126) U/L Total Protein (6.3-8.2) g/dL Albumin (3.5-5.0) g/dL Microbiology - Last 24 Hours (Table) 12/31/20 03:39 Blood Culture - Preliminary Blood No Growth after 96 hours Assessment and Plan Assessment: Assessment #1 coronary artery disease and status post CABG #2 bilateral pleural effusion worse on the left side than the right side #3 mild cardiomyopathy #4 permanent atrial fibrillation with relatively controlled heart rate #5 multiple comorbid conditions Plan #1 switch the patient to amiodarone by mouth at 400 mg by mouth twice a day #2 monitor the liver function test #3 the pleural effusion to be evaluated by the pulmonary critical care team. Ultrasound is in process to be done #4 restart the patient back on oral anticoagulation #5 follow-up with the patient
--- NOTE | 2021-01-04 08:17 | P.PN ---
Subjective Progress Note Date: 01/04/21 80-year-old male patient being seen in follow-up on 12/29/2020. He was hospitalized yesterday for acute hypoxic respiratory failure, shortness of breath, fluid overload. The patient is post four-vessel bypass surgery and the patient was discharged from the hospital on 12/25/2012 after a nonsmoker for t otal of 11 days. He has history of atrial fibrillation, diabetes mellitus, hypertension and hyperlipidemia and BPH. The patient had some issues with generalized weakness and debility postop. He continued to have some degree of shortness of breath with interval worsening. He came into the emergency department and was quite tachypneic and short of breath. He was transferred to the intensive care unit and he was off her diuretics and BiPAP therapy for restorative support. His BUN was at 62 with a creatinine of 1.7 and his chest x-ray showed cardiomegaly and bilateral pleural effusion. She was started on diuretics. The patient has chronic atrial fibrillation the patient was also discharged home on Lasix. The patient had a lactic acid level of 2.1 which dropped subsequently to 1.7. LFTs are normal with an elevated AST and ALT, improving and the troponin was 0.144 and 0.1. Respectively 2. Lipase level was 468. ProBNP level was 5370. COVID-19 testing was negative. Initial sodium level was 128. Creatinine was 1.68. INR was at 5.6 with a PT of 54 while the patient on Coumadin. Coumadin was maintained on hold.Echocardiogram showed a moderate concentric LVH in addition to mildly impaired left a ejection fraction of around 45-50%. No significant valvular abnormalities. No significant pulmonary hypertension. On today's evaluation, the patient seems to be a bit more alert and awake compared to yesterday. His at 12.6. Creatinine is still impaired with a creatinine of 1.8. The patient is receiving Lasix 40 mg IV every 8 hours. Her net fluid balance over the past 24 hours is -1.2 L. Chest x-ray from today still showing bilateral pleural effusions and MARKING OF THE PLEURAL EFFUSION HAS ALREADY BEEN DONE. THERE IS ALSO PATCHY PERIHILAR AND BASILAR ATELECTATIC CHANGES WITHOUT ANY MAJOR INTERVAL CHANGE COMPARED TO YESTERDAY. CARDIAC RHYTHM REMAINS IRREGULAR CONSISTENT WITH ATRIAL FIBRILLATION. The patient also has an INR of 3.0, slightly improved compared to yesterday. On today's evaluation of 12/30/2020, I'm seeing the patient for a follow-up. He is able to sit up on a chair. Is calm and comfortable. His breathing is still shallow and the follow-up chest x-ray from today showing bilateral pleural effusion slightly worse on the right. Ultrasound of markings of the right chest has been done. Meanwhile, the patient was given vitamin K yesterday total of 2.5 mg IV and the follow-up INR was down to 1.9. I'm going to proceed with a right-sided thoracentesis today. He is currently on 2 L about 2 by nasal cannula. He is using incentive spirometer and he is getting approximately thousand on his INRs. His cardiac rhythm is still atrial fibrillation. The patient remains on a combination of oral Cardizem and metoprolol for rate contro l. His antibiotic patient is currently on hold. He remains on IV Lasix and the patient is receiving Lasix 40 mg IV on a daily basis. Her net fluid balance over the past 24 hours has been -1.2 L. White cell count is at 4.2 with a hemoglobin of 9.9. His LFTs are essentially improving. AST is down to 280, ALT is down to 535, alkaline phosphatase is at 295. Patient is awake and alert. No other significant complaints otherwise for now. The patient is post four-vessel bypass surgery. The patient also has chronic atrial fibrillation, diabetes mellitus, hypertension and hyperlipidemia. Overall, he remains quite weak and somewhat debilitated. LFTs are improving, creatinine is at 2.1. On 12/31/2020, the patient is being seen for a follow-up. After being transferred to a medical floor, the patient got transferred back to the intensive care unit as the patient was becoming hypotensive. Note that the patient underwent bilateral thoracentesis yesterday were a total of 650 mL of fluid aspirated from the right and approximately 1.2 L of fluid was aspirated from the left. No complications following the procedure. No pneumothorax. The patient adequate expansion of both lungs. Overnight, the patient became hypotensive and he got transferred to the intensive care unit. Urine output was dropping. Note that there was a problem with his Barrow catheter with the balloon being within the prostate. Ex appropriate positioning Barrow catheter was done. The catheter was advanced and there was adequate amount of urine output initially and subsequently the urine output tapered off. For now, the patient is hypotensive. He received a total of 1.5 L of normal saline overnight. Currently is receiving normal saline at rate of 75 mL an hour. Urine output is no order of 20-30 mL an hour. The patient overnight was also placed on pressors and norepinephrine infusion is running at 0.06 mcg/kg per minute. The patient is also on BiPAP for respiratory support and the current settings are 12/5 cm of water with an FiO2 of 40%. The patient is calm and comfortable and the patient is able to generate adequate tidal volumes of 650 with a rate of 20 and a minute ventilation of 13.5. The blood work from today shows a component of anion gap metabolic acidosis. The serum bicarbonate is down to 10 and anion gap is up to 19. His sodium level has dropped down to 125. The patient has developed an acute kidney injury probably related to an obstructive uropathy. Creatinine is up to 2.75. He does have a bicarb deficit also. The blood gas showed a pH of 7.43 with a pCO2 of 24 and pO2 of 129 and this was done on the above-mentioned BiPAP settings. He is awake. He is alert. Surgical wound site is dry clean and intact. He is arousable and is following commands. Current pulse ox is 99% and the patient is able to follow commands and answer questions appropriately. White cell count at 16.5. No signs of any infection. INR today is at 2.9 and the patient was given warfarin yesterday. As far as is LFTs, there is still elevated with a AST of 1200 to an ALT of 987. The bilirubin is at 5.8 consistent with a cholestatic picture with a alkaline phosphatase of 239. Serum cortisols at 27. 01/01/2021, the patient is sitting up on a chair awake and alert. He spent the day off BiPAP and overnight he was off the BiPAP. Currently is on oxygen at 2 L per minute nasal cannula. Chest x-ray shows resolution of the right-sided pleural effusion, there is a small left-sided pleural effusion present. He is post bilateral thoracentesis. In terms of hemodynamics, he is on low dose of pressors and norepinephrine running at 0.085 mg/kg per minute. He remains in atrial fibrillation. Slightly tachycardic. He is off diuretics and is producing adequate amount of urine output. Creatinine is improving and is currently down to 2.3 with a sodium level improving at 130 and hemoglobin of 10.3. The patient is off Lasix. The patient will be started back on a low-dose metoprolol for rate control. His INR is therapeutic at 2.7 and the patient was not given warfarin yesterday. This will be held for today to. Lasix is currently on hold. The renal function continues to improve. Mentation is adequate. No focal neurological deficit. Barrow cath is in place. He is still weak and he needs aggressive rehabilitation. 01/02/2021, the patient feels weak and still not fully recovered. Nevertheless, all of his blood work showing improvement. Since yesterday, the patient is still on oxygen at 2 L per minute nasal cannula. His chest x-ray showing small left-sided pleural effusion and limited infiltration of the lung bases. The patient was found to have gram-negative bacillus in the urine and the patient was started on IV Rocephin. He is on no pressors. He is on oral Lasix. His renal function continues to improve in the creatinine is currently down to 1.4 with a mean of 60. Sodium is at 131. White cell count is not elevated at 10.6. Lactic acid level is at 3.1, improving. Creatinine is at 1.4. He did have a component of shock liver which is also improving. As such, all of his blood work and progressed nicely. The patient continues to have a Barrow cath in place. The fluid balance over the past 24 hours has been in the order of +1.1 L. He is using incentive spirometer and is pulling approximately 1000. At 2020, I'm seeing the patient for follow-up. Doing well. No specific complaints. He had a good night sleep yesterday. He is waking up today with increased level of alertness. He is on room air oxygen. Chest x-ray showing a small left-sided pleural effusion. White cell count of 8.4 hemoglobin of 10.6. Creatinine is still abnormal at 1.4 although is improving. The rest of the electrolytes are normal. Shock liver is also improving. The patient's INR currently is therapeutic at 3.1. Cardiac rhythm is atrial fibrillation with a controlled rate. Blood pressure remains soft. Is tolerating diet. Barrow catheter in place. Urine culture came back positive for pseudomonas aeruginosa and the appropriate antibiotic adjustments will be done. 01/04/2021, the patient is struggling. Despite the fact that he is on room air oxygen, he seems to be uncomfortable and he keeps on 1 set up on a recliner. His oral intake is minimal. He has no stamina. He seems to be very much discouraged and he feels at times that he wants to quit the treatment. In terms of his pulmonary status, he is on room air oxygen, I reviewed the chest x-ray from today and there is a moderate-sized left-sided pleural effusion. Right- sided pleural effusion has essentially recovered. Note that the patient has undergone bilateral thoracentesis. He continues to have signs of fluid overload with fluid in his upper and lower extremities with some fluid weeping from his skin in lower extremities. He is receiving Lasix 40 mg IV on a daily basis. Overall fluid balance over the past 24 hours has been in the order of negative to 80 mL. He continues to have episodes of atrial fibrillation with rapid ventricular response. Along with A. fib RVR, he became hypotensive and his urine output dropped. He was given IV albumin. He was given a bolus of 500 mL yesterday. He was started on amiodarone drip loading, initially on 1 mg per minute and later on 0.5 mg per minute. His current heart rate is around 110. His most recent blood pressure is 99/61. His serum albumin is at 2.9. INR is at 2.0. Creatinine is at 1.5 with a BUN of 59, sodium is at 132, serum bicarbonate 20. Oral intake is quite diminished at this point in time. His ech ocardiogram was showing a preserved LV function. Urology evaluated the patient. The recommendation was to keep in the Barrow catheter. He is completing a 5 day course of IV cefepime regarding pseudomonas aeruginosa in the urine with possible infection. He is afebrile for now. Surgical wound site is dry clean and intact. His last bowel movement was 2 days ago. Objective - Vital Signs Vital signs: Vital Signs Temp 97.6 F 01/04/21 04:00 Pulse 92 01/04/21 06:00 Resp 14 01/04/21 06:00 BP 109/69 01/04/21 06:00 Pulse Ox 95 01/04/21 06:00 Intake & Output 10/01/04/21 01/04/21 18:59 06:59 18:59 Intake Total 390 747.776 Output Total 725 345 Balance -335 402.776 Weight 98.7 kg Intake: IV 100 600 BOLUS 500 Cefepime 2 gm In Sodium 100 100 Chloride 0.9% 100 ml @ 25 mls/hr IVPB Q12HR [facility] Rx #:[id number] Intake, IV Titration 147.776 Amount Amiodarone 360 mg In 147.776 Dextrose 5% in Water 200 ml @ 1 MG/MIN 33.333 mls/ hr IV .Q6H ONE Rx#: [id number] Tube Feeding 290 Output: Urine 725 345 Other: Voiding Method Indwelling Catheter Indwelling Catheter - Exam Mild respiratory distress with increased respiratory rate, oriented 3. The patient is currently on RA 02 HEENT examination is grossly unremarkable. Neck supple. Full range of motion. No adenopathy thyromegaly or neck vein distention. Cardiovascular examination reveals irregular rhythm rate. S1-S2 normal. No S3 or S4. No discernible murmur noted. The rhythm is irregular consistent with atrial fibrillation. There is also systolic ejection murmur grade 2/6 heard throughout the precordium. Lungs reveal diffuse bibasilar crackles. There is dullness at the bases. Scattered moderate rhonchi are noted. No wheezes appreciated. Overall, there is improvement in her entry bilaterally. He is post bilateral thoracentesis. Abdomen soft bowel sounds are heard. No masses or tenderness. Extremities are intact. No cyanosis or clubbing. 1+ edema is noted.There is adequate pulses in lower extremities bilaterally. His interval worsening of the edema in the upper and lower extremities. Skin is without rash or lesion. Neurologic examination is brief but nonfocal. The patient is lethargic, sleepy yet arousable. He follows simple commands. Neurologic exam remains nonfocal. - Labs CBC & Chem 7: 01/04/21 05:21 01/04/21 05:21 Labs: Abnormal Lab Results - Last 24 Hours (Table) 01/03/21 01/03/21 01/03/21 Range/Units 11:16 18:02 19:47 RBC (4.30-5.90) m/uL Hgb (13.0-17.5) gm/dL Hct (39.0-53.0) % MCHC (31.0-37.0) g/dL RDW (11.5-15.5) % PT (9.0-12.0) sec INR (<1.2) Sodium (137-145) mmol/L Carbon Dioxide (22-30) mmol/L BUN (9-20) mg/dL Creatinine (0.66-1.25) mg/dL Glucose (74-99) mg/dL POC Glucose (mg/dL) 118 H 169 H 166 H (75-99) mg/dL Total Bilirubin (0.2-1.3) mg/dL AST (17-59) U/L ALT (4-49) U/L Alkaline Phosphatase (38-126) U/L Total Protein (6.3-8.2) g/dL Albumin (3.5-5.0) g/dL 01/04/21 01/04/21 01/04/21 Range/Units 05:21 05:21 05:21 RBC 3.55 L (4.30-5.90) m/uL Hgb 10.5 L (13.0-17.5) gm/dL Hct 34.8 L (39.0-53.0) % MCHC 30.3 L (31.0-37.0) g/dL RDW 16.2 H (11.5-15.5) % PT 19.8 H (9.0-12.0) sec INR 2.0 H (<1.2) Sodium 132 L (137-145) mmol/L Carbon Dioxide 20 L (22-30) mmol/L BUN 59 H (9-20) mg/dL Creatinine 1.57 H (0.66-1.25) mg/dL Glucose 154 H (74-99) mg/dL POC Glucose (mg/dL) (75-99) mg/dL Total Bilirubin 2.8 H (0.2-1.3) mg/dL AST 188 H (17-59) U/L ALT 457 H (4-49) U/L Alkaline Phosphatase 222 H (38-126) U/L Total Protein 5.4 L (6.3-8.2) g/dL Albumin 2.9 L (3.5-5.0) g/dL 01/04/21 Range/Units 06:36 RBC (4.30-5.90) m/uL Hgb (13.0-17.5) gm/dL Hct (39.0-53.0) % MCHC (31.0-37.0) g/dL RDW (11.5-15.5) % PT (9.0-12.0) sec INR (<1.2) Sodium (137-145) mmol/L Carbon Dioxide (22-30) mmol/L BUN (9-20) mg/dL Creatinine (0.66-1.25) mg/dL Glucose (74-99) mg/dL POC Glucose (mg/dL) 168 H (75-99) mg/dL Total Bilirubin (0.2-1.3) mg/dL AST (17-59) U/L ALT (4-49) U/L Alkaline Phosphatase (38-126) U/L Total Protein (6.3-8.2) g/dL Albumin (3.5-5.0) g/dL Microbiology - Last 24 Hours (Table) 12/31/20 03:39 Blood Culture - Preliminary Blood No Growth after 96 hours Assessment and Plan Plan: 1 Acute hypoxemic respiratory failure, likely on the basis of fluid overload/pleural effusions. The patient is post bilateral thoracentesis. He is currently on RA of oxygen by nasal cannula. A small residual pleural effusions present on the left. Patient is post thoracentesis bilateral, and reviewed the chest x-ray from today shows a moderate-sized left-sided pleural effusion. The patient remains on room air oxygen. We'll discuss this with the cardiac team. If needed, we'll do another thoracentesis on the left. 2 CAD and the patient is post four-vessel bypass grafting, with discharged from the hospital on December 25. Patient had an 11 day hospital stay. Echocardiogram showed a moderate concentric LVH in addition to mildly impaired left a ejection fraction of around 45-50%. No significant valvular abnormalities. No significant pulmonary hypertension. 3 History of atrial fibrillation. Recurrent cardiac rhythm is still atrial fibrillation and the heart rate remains quite elevated and the patient's INR is currently residing 2.0. He was started on amiodarone drip which is currently running at 0.5 mg per minute. 4 History of diabetes mellitus. 5 Hyperlipidemia. 6 hypotension recovered and the patient is currently normotensive off pressors 7 BPH 8 acute kidney injury , with worsening of the renal function and creatinine is improving , creatinine is at 1.57, stable 9 acute transaminitis secondary to above, LFTs elevated, and a declining course 10 nonspecific elevation of the lipase, consider pancreatitis 11 hyponatremia, improved 12 metabolic acidosis , recovered 13 hypertension currently on off norepinephrine infusion for blood pressure control. Consider hypovolemia and the patient responded nicely to IV fluids. 14 pseudomonas aeruginosa UTI 15 extensive edema in the upper and lower extremities with obvious signs of fluid overload and to kilogram body weight gain 16 profound weakness and debility and lack of energy and lack of interest or motivation and improving. He was having some issues with sleep and he was started on Remeron for sleep and depression. Plan: Continue IV fluids much with his KVO Currently on room air oxygen off pressors today Patient is Xarelto Cardiac rhythm is still atrial fibrillation, metoprolol 12.5 mg twice a day and amiodarone bolus and loading and the patient will be started on amiodarone today. Slightly tachycardic still. The kidneys showed no evidence of any hydronephrosis. Urine analysis and urine cultures are negative for nowcreatinine continues to improve Keep the Barrow catheter in place Switch this patient to IV cefepime, complete a 5 day course Agree with Lasix 40 mg IV and as long as the patient's blood pressure tolerates, with increased up to twice a day even. The need for albumin supplementation to improve his diuresis will be left up to the cardiac team. Patient was given Remeron overnight which helped him with his sleep and some improvement in his mood elevation. I think that was a good choice. Keep the patient ICU continue to follow. Aggressive physical therapy. We'll continue to follow.
[2021-01-04] MEDS: METOPROLOL TARTRATE 12.5 MG TAB PO SCH ×2 (08:25→21:51)
[2021-01-04] MEDS: FUROSEMIDE 10 MG/ML 4 ML VIAL IV SCH (08:25)
[2021-01-04] MEDS: MIDODRINE 5 MG TAB PO SCH ×3 (08:25→17:34)
[2021-01-04] MEDS: CEFEPIME 2 GM in SODIUM CHLORIDE 0.9% 100 ML IVPB SCH (08:26)
[2021-01-04] MEDS: LIDOCAINE 5% PATCH TOPICAL SCH (08:27)
--- NOTE | 2021-01-04 08:37 | P.PN ---
Subjective Progress Note Date: 01/04/21 Principal diagnosis: Shortness of breath, bilateral pleural effusions, acute transaminitis, and acute kidney injury. 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 The patient was seen in follow-up today 01/04/2021 at his bedside in the intensive care unit. Currently he is sitting up to the bedside chair, is awake, alert and oriented 3 and is in no acute apparent distress. The patient reports he feels somewhat improved today, denies any complaints of pain, nausea or shortness of breath at this time. The patient had some episode of hypotension last evening and was given an IV fluid bolus, his current blood pressure is 109/69 with a map of 82. Amiodarone drip per protocol was initiated yesterday by cardiology for A. fib with RVR heart rate in the 120s to 130s. Bedside telemetry currently showing atrial fibrillation heart rate 98 BPM. Oxygen saturations are 95% on room air and he is achieving 1500 mL on his incentive spirometry with much encouragement. The patient reports that he had a good sleep last night and did wear the CPAP unit. Lab results reviewed and showed a WBC count of 8.3, hemoglobin 10.5, platelets 221, PT 19.8, INR 2.0, sodium 132, potassium 4.1, BUN 59, creatinine 1.57, glucose 154, total bilirubin 2.8, AST 188, and ALT 457. Urine culture was positive for pseudomonas aeruginosa and he remains on cefepime for antibiotic coverage. He remains afebrile the last 24 hours. He reports that he did get into the shower yesterday with assistance from nursing staff and walked in the hallway of the ICU 1 yesterday. The patient is still is having some lack of motivation with activity and decreased appetite. Objective - Vital Signs Vital signs: Vital Signs Temp 97.6 F 01/04/21 04:00 Pulse 92 01/04/21 06:00 Resp 14 01/04/21 06:00 BP 109/69 01/04/21 06:00 Pulse Ox 95 01/04/21 06:00 Intake & Output 01/03/21 01/04/21 01/04/21 18:59 06:59 18:59 Intake Total 390 747.776 Output Total 725 345 Balance -335 402.776 Weight 98.7 kg Intake: IV 100 600 BOLUS 500 Cefepime 2 gm In Sodium 100 100 Chloride 0.9% 100 ml @ 25 mls/hr IVPB Q12HR [facility] Rx #:[id number] Intake, IV Titration 147.776 Amount Amiodarone 360 mg In 147.776 Dextrose 5% in Water 200 ml @ 1 MG/MIN 33.333 mls/ hr IV .Q6H ONE Rx#: [id number] Tube Feeding 290 Output: Urine 725 345 Other: Voiding Method Indwelling Catheter Indwelling Catheter - Exam CONSTITUTIONAL: Sitting up to the bedside chair in the intensive care unit, ap pears comfortable, cooperative, no apparent acute distress. HEENT: Neck is supple, no JVD, no lymphadenopathy. RESPIRATORY: Lungs sounds essentially clear throughout, diminished to his bilateral bases. Respirations are symmetrical and nonlabored. Currently on room air with oxygen saturations 95%. Able to achieve 1500 mL on his incentive spirometry. Strong cough. CARDIOVASCULAR: Irregular rhythm and controlled rate. S1 and S2 present, negative for S3, gallop or murmur. Sternum is stable. Palpable peripheral pulses bilaterally, +2 edema to his bilateral lower extremities and 2+ edema to his bilateral upper extremities. No calf pain or tenderness noted. Heart hugger in place with patient demonstrating appropriate use. Knee-high HA hose and sequential compression devices in place to his bilateral lower extremities. GASTROINTESTINAL: Abdomen soft, nontender, and slightly distended. Active bowel sounds present 4 quadrants. Tolerating diet. Passing flatus. No guarding or rigidity. Bowel movement yesterday 01/02/2021. GENITOURINARY: Barrow present draining cloudy, holly urine. Output 245 mL in the last 8 hours. INTEGUMENTARY: Skin is warm and dry with no evidence of clubbing or cyanosis. Midline sternal incision clean dry and well approximated, covered with dry i ntact dressing. Left lower extremity EVH sites well approximated without redness or drainage. Left arm radial artery harvest sites clean, dry and approximated. No drainage or redness is present. NEUROLOGIC: Cranial nerves II through XII intact. No focal deficits. MUSKULOSKELETAL: Able to move all extremities, strength equal bilaterally, generalized weakness. PSYCHIATRIC: Alert and oriented to person place and time, flat affect, intact judgment and insight. - Allied health notes Allied health notes reviewed: nursing - Labs CBC & Chem 7: 01/04/21 05:21 01/04/21 05:21 Labs: Abnormal Lab Results - Last 24 Hours (Table) 01/03/21 01/03/21 01/03/21 Range/Units 11:16 18:02 19:47 RBC (4.30-5.90) m/uL Hgb (13.0-17.5) gm/dL Hct (39.0-53.0) % MCHC (31.0-37.0) g/dL RDW (11.5-15.5) % PT (9.0-12.0) sec INR (<1.2) Sodium (137-145) mmol/L Carbon Dioxide (22-30) mmol/L BUN (9-20) mg/dL Creatinine (0.66-1.25) mg/dL Glucose (74-99) mg/dL POC Glucose (mg/dL) 118 H 169 H 166 H (75-99) mg/dL Total Bilirubin (0.2-1.3) mg/dL AST (17-59) U/L ALT (4-49) U/L Alkaline Phosphatase (38-126) U/L Total Protein (6.3-8.2) g/dL Albumin (3.5-5.0) g/dL 01/04/21 01/04/21 01/04/21 Range/Units 05:21 05:21 05:21 RBC 3.55 L (4.30-5.90) m/uL Hgb 10.5 L (13.0-17.5) gm/dL Hct 34.8 L (39.0-53.0) % MCHC 30.3 L (31.0-37.0) g/dL RDW 16.2 H (11.5-15.5) % PT 19.8 H (9.0-12.0) sec INR 2.0 H (<1.2) Sodium 132 L (137-145) mmol/L Carbon Dioxide 20 L (22-30) mmol/L BUN 59 H (9-20) mg/dL Creatinine 1.57 H (0.66-1.25) mg/dL Glucose 154 H (74-99) mg/dL POC Glucose (mg/dL) (75-99) mg/dL Total Bilirubin 2.8 H (0.2-1.3) mg/dL AST 188 H (17-59) U/L ALT 457 H (4-49) U/L Alkaline Phosphatase 222 H (38-126) U/L Total Protein 5.4 L (6.3-8.2) g/dL Albumin 2.9 L (3.5-5.0) g/dL 01/04/21 Range/Units 06:36 RBC (4.30-5.90) m/uL Hgb (13.0-17.5) gm/dL Hct (39.0-53.0) % MCHC (31.0-37.0) g/dL RDW (11.5-15.5) % PT (9.0-12.0) sec INR (<1.2) Sodium (137-145) mmol/L Carbon Dioxide (22-30) mmol/L BUN (9-20) mg/dL Creatinine (0.66-1.25) mg/dL Glucose (74-99) mg/dL POC Glucose (mg/dL) 168 H (75-99) mg/dL Total Bilirubin (0.2-1.3) mg/dL AST (17-59) U/L ALT (4-49) U/L Alkaline Phosphatase (38-126) U/L Total Protein (6.3-8.2) g/dL Albumin (3.5-5.0) g/dL Microbiology - Last 24 Hours (Table) 12/31/20 03:39 Blood Culture - Preliminary Blood No Growth after 96 hours - Imaging and Cardiology Chest x-ray: report reviewed, image reviewed Assessment and Plan Assessment: 1. Shortness of breath, improving 2. Acute transaminitis, likely from hepatic congestion secondary to heart failure, LFTs trending down 3. Bilateral pleural effusions, drained right 650 mL, left 1200 mL 12/30/20 4. Acute kidney injury, possibly from obstructive uropathy, BUN and creatinine continued to trend down. 5. Coronary artery disease status post PCI to the LAD in 2005 and subsequent 4 vessel CABG on 12/16/2020 6. Previously preserved left ventricular function, mildly impaired left ventricular systolic function with EF 45-50% on current TTE 7. Chronic atrial fibrillation on Coumadin for anticoagulation with suprathera peutic INR on admission, status post exclusion of the left atrial appendage 8. History of hypertension 9. History of hyperlipidemia, treated 10. Diet controlled diabetes mellitus, recent hemoglobin A1c 6.2% 11. Obstructive sleep apnea on home CPAP, was not on at [facility] 12. History of pituitary tumor 13. Lifetime nonsmoker with a preoperative FEV1 91% of predicted 14. History of daily wine consumption 15. 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 Acute hypoxemic respiratory failure, likely from fluid overload 17. Metabolic acidosis, resolved 18. Urinary tract infection, urine culture positive for pseudomonas aeruginosa Plan: 1. Continue aspirin, and low-dose beta junito. Continue to hold statin until liver enzymes returned to normal. 2. Continue amiodarone per recommendations from cardiology. 3. Continue midodrine 10 mg by mouth 3 times a day. 4. Encourage incentive spirometry is 10 times every hour while awake. Bronchodilators, BiPAP per pulmonology/critical care management. 5. Increase activity, ambulate as tolerated. PT/OT following. The patient needs much encouragement to get up to ambulate. Shower daily. 6. Will monitor daily labs and chest x-rays. 7. Avoid nephrotoxins, appreciate nephrology recommendations, Lasix per nephrology recommendations. 8. Continue sternal precautions. Heart hugger is in place. 9. Medical management of other comorbidities per primary care service 10. Urine culture showing Pseudomonas aeruginosa, antibiotic management recommendations per pulmonary/critical care medicine. Currently on cefepime 2 g IV piggyback every 12 hours. 11. Encourage nutrition. 12. Keep Barrow catheter in place per urologist recommendations. Flomax has been discontinued per urology recommendations. 13. GI and DVT prophylaxis 14. More recommendations to follow based on patient's clinical course. Time with Patient: Greater than 30
[2021-01-04] MEDS: IPRATROPIUM-ALBUTEROL 3 ML NEB INHALATION SCH ×4 (08:38→20:55)
--- NOTE | 2021-01-04 08:46 | P.PN ---
Subjective Progress Note Date: 01/04/21 Follow-up for acute kidney injury. Urine output of 1 L in the last 24 hours. Objective - Vital Signs Vital signs: Vital Signs Temp 97.6 F 01/04/21 04:00 Pulse 137 H 01/04/21 08:38 Resp 18 01/04/21 08:38 BP 109/69 01/04/21 06:00 Pulse Ox 95 01/04/21 06:00 Intake & Output 01/03/21 01/04/21 01/04/21 18:59 06:59 18:59 Intake Total 390 747.776 203.337 Output Total 725 345 Balance -335 402.776 203.337 Weight 98.7 kg Intake: IV 100 600 BOLUS 500 Cefepime 2 gm In Sodium 100 100 Chloride 0.9% 100 ml @ 25 mls/hr IVPB Q12HR [facility] Rx #:[id number] Intake, IV Titration 147.776 203.337 Amount Amiodarone 360 mg In 147.776 Dextrose 5% in Water 200 ml @ 1 MG/MIN 33.333 mls/ hr IV .Q6H ONE Rx#: [id number] Amiodarone 450 mg In 203.337 Dextrose 5% in Water 250 ml @ 0.5 MG/MIN 16.667 mls/hr IV .Q15H [facility] Rx#: [id number] Tube Feeding 290 Output: Urine 725 345 Other: Voiding Method Indwelling Catheter Indwelling Catheter - Exam No acute distress S1-S2 heard Decreased breath sounds Edema - Labs CBC & Chem 7: 01/04/21 05:21 01/04/21 05:21 Labs: Abnormal Lab Results - Last 24 Hours (Table) 01/03/21 01/03/21 01/03/21 Range/Units 11:16 18:02 19:47 RBC (4.30-5.90) m/uL Hgb (13.0-17.5) gm/dL Hct (39.0-53.0) % MCHC (31.0-37.0) g/dL RDW (11.5-15.5) % PT (9.0-12.0) sec INR (<1.2) Sodium (137-145) mmol/L Carbon Dioxide (22-30) mmol/L BUN (9-20) mg/dL Creatinine (0.66-1.25) mg/dL Glucose (74-99) mg/dL POC Glucose (mg/dL) 118 H 169 H 166 H (75-99) mg/dL Total Bilirubin (0.2-1.3) mg/dL AST (17-59) U/L ALT (4-49) U/L Alkaline Phosphatase (38-126) U/L Total Protein (6.3-8.2) g/dL Albumin (3.5-5.0) g/dL 01/04/21 01/04/21 01/04/21 Range/Units 05:21 05:21 05:21 RBC 3.55 L (4.30-5.90) m/uL Hgb 10.5 L (13.0-17.5) gm/dL Hct 34.8 L (39.0-53.0) % MCHC 30.3 L (31.0-37.0) g/dL RDW 16.2 H (11.5-15.5) % PT 19.8 H (9.0-12.0) sec INR 2.0 H (<1.2) Sodium 132 L (137-145) mmol/L Carbon Dioxide 20 L (22-30) mmol/L BUN 59 H (9-20) mg/dL Creatinine 1.57 H (0.66-1.25) mg/dL Glucose 154 H (74-99) mg/dL POC Glucose (mg/dL) (75-99) mg/dL Total Bilirubin 2.8 H (0.2-1.3) mg/dL AST 188 H (17-59) U/L ALT 457 H (4-49) U/L Alkaline Phosphatase 222 H (38-126) U/L Total Protein 5.4 L (6.3-8.2) g/dL Albumin 2.9 L (3.5-5.0) g/dL 01/04/21 Range/Units 06:36 RBC (4.30-5.90) m/uL Hgb (13.0-17.5) gm/dL Hct (39.0-53.0) % MCHC (31.0-37.0) g/dL RDW (11.5-15.5) % PT (9.0-12.0) sec INR (<1.2) Sodium (137-145) mmol/L Carbon Dioxide (22-30) mmol/L BUN (9-20) mg/dL Creatinine (0.66-1.25) mg/dL Glucose (74-99) mg/dL POC Glucose (mg/dL) 168 H (75-99) mg/dL Total Bilirubin (0.2-1.3) mg/dL AST (17-59) U/L ALT (4-49) U/L Alkaline Phosphatase (38-126) U/L Total Protein (6.3-8.2) g/dL Albumin (3.5-5.0) g/dL Microbiology - Last 24 Hours (Table) 12/31/20 03:39 Blood Culture - Preliminary Blood No Growth after 96 hours Assessment and Plan Assessment: #1 acute kidney injury secondary to hemodynamic ATN. Baseline creatinine 0.8- 1.0 MG per DL. #2 hypervolemic hyponatremia #3 systolic and diastolic dysfunction #4 volume overload #5 atrial fibrillation with RVR Plan: #1 continue with midodrine/albumin for hemodynamic support. #2 Lasix 40 mg IV daily. Increase to twice a day. #3 avoid nephrotoxic agents and hypotensive episodes. #4 ICU care
[2021-01-04] MEDS ORDERED: AMIODARONE 200 MG TAB PO SCH (09:00)
[2021-01-04] MEDS ORDERED: FUROSEMIDE 10 MG/ML 4 ML VIAL IV SCH ×2 (09:00→21:00)
--- NOTE | 2021-01-04 09:31 | P.PN ---
Subjective Progress Note Date: 01/04/21 This is a 80-year-old male patient of Dr. Campos and Dr. Mullins with past medical history of chronic persistent atrial fibrillation, diabetes mellitus type 2, hypertension, hyperlipidemia, history of pituitary tumor resection, obstructive sleep apnea on BiPAP, gastroesophageal reflux disease, benign prostatic hypertrophy. He should also has history of coronary artery disease status post PCI to the LAD in 2005, heart catheterization in October 2020 found severe triple-vessel disease, subsequently admitted to the hospital for elective coronary artery bypass grafting 12/16 for four-vessel bypass MORAN to LAD, left radial artery from the aorta to the first obtuse marginal artery, reverse saphenous vein graft from the aorta to the second diagonal artery, reverse saphenous vein graft from the aorta to the posterior descending artery, endoscopic harvesting of the left radial artery, endoscopic harvesting of the left greater saphenous vein from ankle to the groin, exclusion of the left atrial appendage. During his last admission, he remained in ICU,Until December 24,, and after he was transferred to [facility] for cardiac recovery program. He has chronic atrial fibrillation, diabetes mellitus type 2, hypertension, hyperlipidemia, history of pituitary gland resection, obstructive sleep apnea, BPH with urinary retention, and delirium.. At the time of discharge, he was on Coumadin and Singulair Cardizem CD lisinopril Tylenol, he was taken off atenolol Vytorin lisinopril Imdur aspirin and nitro. -He comes back to the emergency room 2 days later, from [facility], secondary to shortness of breath, and edema. She also has worsening of her liver issues, with no visible jaundice. On ER presentation, he has indwelling Barrow catheter, there is no fever, no focal deficit, chest pain, he has shortness of breath, no vomiting, no diarrhea, no melena. In the emergency room, EKG shows atrial fibrillation heart rate of 79, no significant change compared to 927 EKG, double basic count is 15, hemoglobin of 9, sodium of 131, BUN 62 creatinine 4.7, CO2 of 19 total bili of 7.3, AST 949 ALT 881, alkaline phosphatase 411, troponin is stagnant at 0.14, and 0.148. Lactic acid level was 2.1, INR is 3.3 ultrasound of the gallbladder, shows common bile duct is normal, liver is enlarged, otherwise no other pathologies noted. Chest x-ray shows bilateral pleural effusion, basilar pulmonary infiltrates, which slightly is worse compared to previous, mild heart failure is possible, cardiomegaly some change patient is admitted to ICU with consultation to critical care medicine Dr. Vásquez, and cardiology. Chest ultrasound is ordered CMV and hepatitis panels ordered, patient would need a CAT scan of the abdomen, to eval for spleen gallbladder, Tylenol is discontinued, Lipitor is discontinued check for haptoglobin, reticulocyte count, and iron studies to evaluate portal system. 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 INR is 3. Sodium 132, potassium 4.1, chloride 100, CO2 18, BUN 65 and creatini ne 1.81, blood sugar 119. Total bilirubin 6.5, AST 493, ALT 663, alkaline phosphatase 360. INR is 3.0. Magnesium 2.6. Lipase 473. CMV nonreactive 2 draws. Hepatitis panel negative. Repeat chest x-ray reveals patchy perihilar and basilar infiltrates/atelectasis as well as pleural effusions persist without significant interval change. Dr. Cartagena has ordered for vitamin K 2.5 mg and repeat INR with plan for thoracentesis once INR is under 2. Patient is also followed by cardiology and Lasix decreased to 40 mg IV daily. Echocardiogram reveals EF of 45-60% with moderate concentric left hypertrophy, LA is severely dilated, mild to moderate mitral regurgitation, mild tricuspid regurgitation. Patient denies having any shortness of breath at rest. He denies abdominal pain, no nausea. He has had good urine output around 35 mL per hour. 12/30: Patient underwent right sided thoracentesis this morning with Dr. Cartagena with removal of approximately 650 ML's of turbid fluid. Repeat chest x- ray following procedure showed no complications. Patient was on BiPAP during the night and currently on O2 by nasal cannula at 3 L with pulse ox of 97%. Blood pressure 101/64, heart rate 81, afebrile. Patient has been seen and followed by nephrology for acute kidney injury secondary to hypotension and hypoperfusion. Plan is to continue diuresis in the patient, hold MAURA inhibitor, check cortisol level, monitor I&O's. Midodrine was increased yesterday. Repeat blood work today reveals WBC 12.2, hemoglobin 9.9 and platelet count 312. INR this morning was 1.9. Sodium 128, potassium 4.7, chloride 95, CO2 21, BUN 71 and creatinine 2.11. Blood sugars running between 109 and 134. Repeat liver function tests reveal total bilirubin 6, AST 28, ALT 535, alkaline phosphatase 295. Magnesium 2.8. Cortisol level came back at 27. Patient will be transferred to the cardiac stepdown unit. 12/31: Patient remains in the intensive care unit, today resting in bed on BiPAP. Patient became hypotensive overnight and required levo fed and was transferred back to the intensive care unit. Levo fed is currently off. Repeat blood work reveals WBC 16.5, hemoglobin 10.4, platelet count 282. Sodium 125, potassium 5.8, BUN 77 and creatinine 2.75. AST 1302, ALT 987, alkaline phosphatase 236. INR 2.9. Patient is followed by multiple consultants including cardiology, pulmonary medicine, nephrology and cardiothoracic surgery. Patient has been reaching 1000 on incentive spirometry. CAT scan of the abdomen and pelvis reveals nonobstructive left nephrolithiasis. Left pleural effusion difficult to exclude basilar pneumonia or atelectasis. There may be a posterior dependent he will. Cardiac. Coronary artery disease. Repeat chest x-ray reveals stable bibasilar infiltrate and small left pleural effusion. Renal ultrasound reveals limited assessment of left kidney demonstrate no defin ite hydronephrosis or hydroureter lysis. No hydronephrosis on the right kidney 01/01: Patient remains in the intensive care unit, resting in chair on nasal oxygen and appears to be comfortable. Pulse ox is 99%, blood pressure 80/65 and he is on levo fed. Lopressor was decreased by nephrology. Heart rate is 106, afebrile. Repeat blood work reveals WBC 10.1, hemoglobin 10.3, platelet count 291. INR 2.7. Sodium 130, potassium 4.0, chloride 94, CO2 25, BUN 76 and creatinine 2.38. Calcium 7.7. Magnesium 2.8. AST 824, ALT 920, alkaline phosphatase 210. Patient received calcium gluconate 1 g this morning. Chest x-ray reveals pleural parenchymal density left lower lobe persistent appears to be somewhat improved. 01/02: Patient remains in intensive care unit. He appears to be less jaundiced today. Urine is blood tinged. He states he is uncomfortable all over his body but no specific pain. He states he is skinny interrupted sleep throughout the night and melatonin increased. He continues not have appetite and Remeron added. Discussed with cardiothoracic surgery transitioning patient to eliquis although patient had episodes of nausea with this and to discuss other options, and also regard the posterior hemopericardium. Patient has been afebrile, heart rate 105, blood pressure 103/70, pulse ox 99% 2 L nasal cannula. Repeat blood work reveals WBC 10.8, hemoglobin 10.6, platelet count 251. Sodium 131, potassium 3.7, chloride 100, CO2 22, BUN 16 creatinine 1.41. Blood sugars are running between 105 and 144. Lactic acid 2.1. Calcium 7.8. Liver function tests are improving with total bilirubin 3.5, AST 449, ALT 684, alkaline phosphatase 194. LDH 1192. Lipase 302. 01/03: Patient evaluated this morning, remains in intensive care unit, patient is awake and alert, is currently on room air. Repeat chest x-ray shows pleural parenchymal lung base that is unchanged. Repeat blood work reveals hemoglobin 10.6, platelet count of 220, INR 3.1, sodium 132, BUN 58, creatinine 1.48, AST 319, ALT 578, Alk Phos 190. Liver function tests are improving. Urine culture showed Pseudomonas aeruginosa, he is on cefepime. Telemetry showing atrial fibrillation, he was started on xarelto yesterday for anticoagulation, and was held today for increase in INR. He was given calcium gluconate and albumin today and also a dose of Lasix Vital signs are heart rate 103, respiratory rate 13, blood pressure 92/72, 94% on room air. 01/04: Patient evaluated this morning, remains in the ICU, sitting up resting in the bedside recliner, patient is awake and alert. Labs show hemoglobin 10.5, platelets 221, INR 2, potassium 4.1, BUN 59, creatinine 1.57, total bilirubin 2.8, AST 188, ALT 457, alk phos 222, albumin 2.9. Telemetry still showing atrial fibrillation with an elevated rate, cardiology is following and is on amiodarone 400 mg twice a day. Patient continues to have problems with blood pressure and postural hypotension. Flomax was discontinued, urology consult ap preciated. Recommends to continue with the Barrow catheter until he is more stabilized and ambulating, then we'll plan to remove the catheter and do a voiding trial. Pulmonary reviewed repeat chest x-ray from today and shows a moderate sized left sided pleural effusion, right-sided pleural effusion has recovered. Pulmonary considering possibly doing another thoracentesis on the left side. Patient does not require any pressors at this point. Patient still has extensive edema in the upper and lower extremities with signs of fluid overload, Lasix 40 mg IV ordered. He continues on cefepime for Pseudomonas aeruginosa in the urine. Oral intake continues to be poor, recently started on Remeron. Objective - Vital Signs Vital signs: Vital Signs Temp 97.6 F 01/04/21 04:00 Pulse 92 01/04/21 06:00 Resp 14 01/04/21 06:00 BP 109/69 01/04/21 06:00 Pulse Ox 95 01/04/21 06:00 Intake & Output 01/03/21 01/04/21 01/04/21 18:59 06:59 18:59 Intake Total 390 747.776 Output Total 725 345 Balance -335 402.776 Weight 98.7 kg Intake: IV 100 600 BOLUS 500 Cefepime 2 gm In Sodium 100 100 Chloride 0.9% 100 ml @ 25 mls/hr IVPB Q12HR [facility] Rx #:[id number] Intake, IV Titration 147.776 Amount Amiodarone 360 mg In 147.776 Dextrose 5% in Water 200 ml @ 1 MG/MIN 33.333 mls/ hr IV .Q6H ONE Rx#: [id number] Tube Feeding 290 Output: Urine 725 345 Other: Voiding Method Indwelling Catheter Indwelling Catheter - Exam - Constitutional General appearance: Present: average body habitus, cooperative, no acute distress - EENT Eyes: Present: abnormal pupil, edentulous, PERRLA, normal appearance ENT: Present: hearing grossly normal, normal oropharynx. Absent: pharyngeal erythema, thrush - Neck Neck: Present: normal ROM. Absent: lymphadenopathy, rigidity, stridor, thyromegaly - Respiratory Respiratory: bilateral: diminished, more on the left side negative: rales, rhonchi, wheezing - Cardiovascular Rhythm: irregularly irregular Heart sounds: normal: S1, S2, tachy upper and lower extremity edema - Gastrointestinal General gastrointestinal: Present: normal bowel sounds. Absent: organomegaly, splenomegaly, tenderness - Genitourinary Genitourinary Comment(s): Barrow catheter in place, draining blood tinged urine - Neurologic Neurologic: Present: CNII-XII intact. Absent: focal deficits - Musculoskeletal Musculoskeletal: Present: generalized weakness, strength equal bilaterally - Psychiatric Psychiatric: Present: A&O x's 3, appropriate affect - Labs CBC & Chem 7: 01/04/21 05:21 01/04/21 05:21 Labs: Abnormal Lab Results - Last 24 Hours (Table) 01/03/21 01/03/21 01/03/21 Range/Units 11:16 18:02 19:47 RBC (4.30-5.90) m/uL Hgb (13.0-17.5) gm/dL Hct (39.0-53.0) % MCHC (31.0-37.0) g/dL RDW (11.5-15.5) % PT (9.0-12.0) sec INR (<1.2) Sodium (137-145) mmol/L Carbon Dioxide (22-30) mmol/L BUN (9-20) mg/dL Creatinine (0.66-1.25) mg/dL Glucose (74-99) mg/dL POC Glucose (mg/dL) 118 H 169 H 166 H (75-99) mg/dL Total Bilirubin (0.2-1.3) mg/dL AST (17-59) U/L ALT (4-49) U/L Alkaline Phosphatase (38-126) U/L Total Protein (6.3-8.2) g/dL Albumin (3.5-5.0) g/dL 01/04/21 01/04/21 01/04/21 Range/Units 05:21 05:21 05:21 RBC 3.55 L (4.30-5.90) m/uL Hgb 10.5 L (13.0-17.5) gm/dL Hct 34.8 L (39.0-53.0) % MCHC 30.3 L (31.0-37.0) g/dL RDW 16.2 H (11.5-15.5) % PT 19.8 H (9.0-12.0) sec INR 2.0 H (<1.2) Sodium 132 L (137-145) mmol/L Carbon Dioxide 20 L (22-30) mmol/L BUN 59 H (9-20) mg/dL Creatinine 1.57 H (0.66-1.25) mg/dL Glucose 154 H (74-99) mg/dL POC Glucose (mg/dL) (75-99) mg/dL Total Bilirubin 2.8 H (0.2-1.3) mg/dL AST 188 H (17-59) U/L ALT 457 H (4-49) U/L Alkaline Phosphatase 222 H (38-126) U/L Total Protein 5.4 L (6.3-8.2) g/dL Albumin 2.9 L (3.5-5.0) g/dL 01/04/21 Range/Units 06:36 RBC (4.30-5.90) m/uL Hgb (13.0-17.5) gm/dL Hct (39.0-53.0) % MCHC (31.0-37.0) g/dL RDW (11.5-15.5) % PT (9.0-12.0) sec INR (<1.2) Sodium (137-145) mmol/L Carbon Dioxide (22-30) mmol/L BUN (9-20) mg/dL Creatinine (0.66-1.25) mg/dL Glucose (74-99) mg/dL POC Glucose (mg/dL) 168 H (75-99) mg/dL Total Bilirubin (0.2-1.3) mg/dL AST (17-59) U/L ALT (4-49) U/L Alkaline Phosphatase (38-126) U/L Total Protein (6.3-8.2) g/dL Albumin (3.5-5.0) g/dL Microbiology - Last 24 Hours (Table) 12/31/20 03:39 Blood Culture - Preliminary Blood No Growth after 96 hours Assessment and Plan Plan: 1. Acute hypoxic respiratory failure secondary to fluid overload and pleural effusions. Patient is status post right-sided thoracentesis on 12/30 of 650 mL, continue Lasix oral 40 mg daily, monitor I&O and daily weights, monitor renal function and electrolytes. Repeat x-ray shows worsening left-sided pleural effusion, pulmonary considering left-sided thoracentesis 2. 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 Lipitor and Tylenol was discontinued and held. No GI consultation is available, till January 12, monitor liver function tests. INR to be monitored daily. Patient is status post vitamin K. Liver function tests are improving, INR also improving 3. Acute kidney injury and chronic kidney disease stage II secondary to hypoperfusion, obstructive uropathy with balloon not in the bladder. Consult with nephrology appreciated. Avoid nephrotoxic agents. 4. Metabolic acidosis secondary to acute kidney injury. 5. Coronary artery disease status post 4 vessel CABG 12/16. Continue current management per cardio thoracic surgery. Continue aspirin 81 mg daily, Lipitor on hold, Lopressor 12.5 mg twice daily 6. Chronic persistent atrial fibrillation. Resumed Lopressor at lower dose of 12.5 mg twice daily, patient is off Cardizem. Xarelto on hold, possible thoracentesis 7. Acute hypoxemic respiratory failure, was on BiPAP now on room air 8. Hypovolemic hyponatremia. Continue to monitor sodium, consult with nephrology appreciated 9. Diabetes mellitus type 2. Continue with NovoLog scale before meals and at bedtime, blood sugar is controlled. 10. Hypertension. On Lopressor 12.5 twice a day 11. Hyperlipidemia. Hold Lipitor. 12. Urinary retention. Maintain Barrow catheter, Flomax held. Barrow cath apparently was not in the bladder and has been replaced. 13. History of pituitary gland resection. 14. Obstructive sleep apnea on BiPAP. 15. Gastroesophageal reflux disease. 16. 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 17. DVT prophylaxis. HA domínguez. Patient's been resumed on Coumadin. 18. GI prophylaxis. Protonix. 19. Postural hypotension. Flomax held The above impression and plan of care have been discussed and directed by signing physician. Rona Preciado nurse practitioner acting as scribe for signing physician.
[2021-01-04 11:15] LABS: Glucose,Whole Blood 201 mg/dL (75-99)
[2021-01-04] MEDS: FERROUS SULFATE 325 MG TAB PO SCH (12:16)
[2021-01-04] MEDS: AMIODARONE 360 MG in DEXTROSE 5% IN WATER 200 ML IV SCH ×4 (13:42→20:27)
[2021-01-04 16:19] LABS: Glucose,Whole Blood 193 mg/dL (75-99)
[2021-01-04] MEDS ORDERED: FUROSEMIDE 10 MG/ML 4 ML VIAL IV STA (17:21)
[2021-01-04] MEDS ORDERED: ALPRAZolam 0.5 MG TAB PO STA (17:21)
[2021-01-04] MEDS: ASPIRIN 81 MG PO SCH (17:34)
[2021-01-04] MEDS: ASCORBIC ACID 500 MG TAB PO SCH (17:34)
[2021-01-04] MEDS: CALCIUM CARBONATE 500 MG CHEWABLE PO SCH (17:34)
[2021-01-04] MEDS: CHOLECALCIFEROL 25 MCG (1000 IU) TABLET PO SCH (17:34)
[2021-01-04] MEDS: ONDANSETRON 4 MG/2 ML VIAL IVP PRN (17:41)
[2021-01-04] MEDS: MIRTAZAPINE 15 MG TAB PO SCH (17:43)
[2021-01-04 17:56] LABS: Glucose,Whole Blood 203 mg/dL (75-99)
[2021-01-04] MEDS ORDERED: propofoL 100 ML IV ONE (19:16)
--- NOTE | 2021-01-04 19:32 | XR ---
EXAMINATION TYPE: XR chest 1V portable DATE OF EXAM: 01/04/2021 COMPARISON: 01/04/2021 HISTORY: Short of breath TECHNIQUE: Single view FINDINGS: There is blunting left costophrenic angle. There are sternal wires. There is mild pulmonary congestion. There are chest leads. IMPRESSION: Bilateral pleural effusions and larger on the left side. There is probably some minimal h eart failure. Left lower lobe pneumonia is possible. Pulmonary congestion slightly increased compared to exam this morning.
--- NOTE | 2021-01-04 19:33 | XR ---
EXAMINATION TYPE: XR abdomen 2V DATE OF EXAM: 01/04/2021 COMPARISON: NONE HISTORY: Abdominal distention TECHNIQUE: 3 views FINDINGS: Supine and upright views were obtained. Exam limited by patient's size. There is no evidenc e of free air. There is blunting of the left costophrenic angle. Heart appears enlarged. There is gas in the large bowel down to the rectum. IMPRESSION: There is probably some large bowel ileus. No free air. Left pleural effusion and probable left lower lobe infiltrate.
--- NOTE | 2021-01-04 19:36 | XR ---
EXAMINATION TYPE: XR chest 1V portable DATE OF EXAM: 01/04/2021 COMPARISON: 01/04/2021 HISTORY: Check tube placement TECHNIQUE: Single view FINDINGS: There is nasogastric tube and the tip appears to be in the right lower lobe bronchus. There is blunting of the costophrenic angles and more on the left side. There are sternal wires. There are chest leads. There is mild pulmonary congestion. IMPRESSION: There is malposition of the gastric tube in the right lower lobe bronchus. Normal pulmona ry infiltrates and pleural effusions without change.
[2021-01-04] MEDS ORDERED: NOREPINEPHRIN 4 MG-0.9% NS PMX 4 MG/250 ML ML IV ONE (19:45)
--- NOTE | 2021-01-04 20:21 | XR ---
EXAMINATION TYPE: XR chest 1V portable DATE OF EXAM: 01/04/2021 COMPARISON: Today HISTORY: Check tube placement TECHNIQUE: Single view FINDINGS: There is nasogastric tube that is in good position in the body of the stomach. The endotrac heal tube is 3 cm from the cassie. There is bilateral pleural effusions and larger on the left side. No obvious heart failure. IMPRESSION: NG tube and endotracheal tube in good position.
[2021-01-04] MEDS: NOREPINEPHRINE 4 MG in SODIUM CHLORIDE 0.9% 250 ML IV SCH (20:25)
[2021-01-04 20:39] LABS: Anisocytosis Slight; Basophils % (A) 0 %; Eosinophils # (A) 0.2 k/uL (0-0.7); Eosinophils % (A) 2 %; HCT 35.5 % (39.0-53.0); HGB 10.7 gm/dL (13.0-17.5); Hypochromasia Marked; Lymphocytes % (A) 10 %; MCHC 30.1 g/dL (31.0-37.0); MCV 99.9 fL (80.0-100.0); Macrocytosis Slight; Mean Platelet Volume 8.4; Monocytes # (A) 0.8 k/uL (0-1.0); Monocytes % (A) 8 %; Neutrophils # (A) 8.5 k/uL (1.3-7.7); Neutrophils % (A) 80 %; Platelet Count 243 k/uL (150-450); Poikilocytosis Moderate; RBC 3.56 m/uL (4.30-5.90); RDW 16.2 % (11.5-15.5); WBC 10.6 k/uL (3.8-10.6)
[2021-01-04] MEDS: PIPERACILLIN-TAZOBACTAM 3.375 GM in SODIUM CHLORIDE 0.9% 100 ML IVPB SCH (20:47)
[2021-01-04 20:50] LABS: INR 1.9 (<1.2); Partial Thromboplastin Time 28.8 sec (22.0-30.0); Prothrombin Time 18.3 sec (9.0-12.0)
[2021-01-04 20:55] LABS: Albumin 2.8 g/dL (3.5-5.0); Total Protein 5.1 g/dL (6.3-8.2)
[2021-01-04 20:56] LABS: Calcium 7.8 mg/dL (8.4-10.2); Potassium 4.2 mmol/L (3.5-5.1); Total Bilirubin 2.1 mg/dL (0.2-1.3)
[2021-01-04 21:13] LABS: ABG Base Excess 0.1 mmol/L; ABG HCO3 23 mmol/L (21-25); ABG Oxygen Saturation 99.9 % (94-97); ABG PCO2 28 mmHg (35-45); ABG PH 7.52 (7.35-7.45); ABG PO2 252 mmHg (83-108); ABG TCO2 24 mmol/L (19-24); Allen Test Performed? Yes
[2021-01-04] MEDS: LATANOPROST 0.005% OPHTH DROPS 2.5 ML BTL BOTH EYES SCH (21:51)
[2021-01-04] MEDS: CHLORHEXIDINE GLUCONATE 15 ML CUP MUCOUS MEM SCH (21:51)
[2021-01-04] MEDS: SENNOSIDES-DOCUSATE SODIUM 1 EACH TAB PO SCH (21:51)
[2021-01-04] MEDS: MONTELUKAST 10 MG TAB PO SCH (21:51)
[2021-01-04] MEDS: MELATONIN 5 MG TABLET PO SCH (21:51)
[2021-01-04 23:53] LABS: Glucose,Whole Blood 162 mg/dL (75-99)
[2021-01-05 01:01] LABS: Allen Test Performed? Yes
[2021-01-05 01:05] LABS: ABG PCO2 37 mmHg (35-45)
[2021-01-05 01:06] LABS: ABG Base Excess -1.5 mmol/L; ABG HCO3 22 mmol/L (21-25); ABG PO2 58 mmHg (83-108)
--- NOTE | 2021-01-05 03:05 | CT ---
EXAMINATION TYPE: CT abdomen pelvis w con DATE OF EXAM: 01/05/2021 COMPARISON: 04/30/2016 HISTORY: abdominal distension and firmness. CT DLP: 2301.6 mGycm Automated exposure control for dose reduction was used. CONTRAST: Performed with IV Contrast, patient injected with 80ml mL of Isovue 300. There are moderate bilateral pleural effusions. There is consolidation and atelectasis at both lung b ases. Heart is enlarged. There is no pericardial effusion. Liver is intact. Spleen is intact. There is no pancreatic mass. Gallbladder is intact. There is nasog astric tube in the stomach. There is no evidence of pancreatic mass. There is no adrenal mass. Kidneys show satisfactory contrast opacification. There is no hydronephrosi s. Ureters are not dilated. There is very little contrast in the renal collecting systems on the niurka yed images. There is Barrow catheter in the urinary bladder. There is some contrast material in the la rge bowel. There is some loculated fluid in the left paracolic gutter. There is small amount of free fluid in the pelvis. There is subcutaneous edema around the abdomen. There is no evidence of free air . There is no evidence of a bowel obstruction. Lumbar vertebra have normal alignment. There is no compr ession fracture. The bony pelvis is intact. Hip joints appear intact. IMPRESSION: Bilateral lower lobe pulmonary consolidation and pleural fluid. Cardiomegaly. Congestive heart failur e is possible. Some loculated ascites fluid noted in the abdomen. No free air. No sign of a mechanical bowel obstruc tion. Subcutaneous edema around the abdomen. Abnormalities are all essentially new compared to old ex am.
[2021-01-05] MEDS: AMIODARONE 360 MG in DEXTROSE 5% IN WATER 200 ML IV SCH ×8 (03:39→21:36)
[2021-01-05] MEDS: PIPERACILLIN-TAZOBACTAM 3.375 GM in SODIUM CHLORIDE 0.9% 100 ML IVPB SCH ×3 (03:42→19:51)
[2021-01-05 05:35] LABS: INR 1.8 (<1.2); Prothrombin Time 17.5 sec (9.0-12.0)
[2021-01-05 05:37] LABS: Allen Test Performed? Yes
[2021-01-05 05:38] LABS: Anisocytosis Slight; HCT 39.6 % (39.0-53.0); Hypochromasia Marked; MCHC 30.2 g/dL (31.0-37.0); MCV 99.4 fL (80.0-100.0); Macrocytosis Slight; Mean Platelet Volume 8.4; Platelet Count 185 k/uL (150-450); Poikilocytosis Moderate; RBC 3.99 m/uL (4.30-5.90); RDW 16.3 % (11.5-15.5); WBC 17.3 k/uL (3.8-10.6)
[2021-01-05 05:47] LABS: ABG PCO2 39 mmHg (35-45); ABG PH 7.38 (7.35-7.45)
[2021-01-05 05:48] LABS: ABG Base Excess -1.7 mmol/L; ABG HCO3 23 mmol/L (21-25); ABG PO2 74 mmHg (83-108)
[2021-01-05 05:53] LABS: Albumin 2.5 g/dL (3.5-5.0); Calcium 7.9 mg/dL (8.4-10.2); Potassium 3.9 mmol/L (3.5-5.1); Total Bilirubin 2.7 mg/dL (0.2-1.3); Total Protein 4.9 g/dL (6.3-8.2)
[2021-01-05 05:59] LABS: Glucose,Whole Blood 141 mg/dL (75-99)
[2021-01-05] MEDS: INSULIN ASPART (NovoLOG) 100 UNIT/ML VIAL SQ SCH ×3 (06:03→18:20)
[2021-01-05] MEDS: NOREPINEPHRINE 4 MG in SODIUM CHLORIDE 0.9% 250 ML IV SCH ×2 (06:07→06:57)
[2021-01-05 06:16] LABS: Band Neutrophils % 10 %; Lymphocytes # (M) 0.69 k/uL (1.0-4.8); Monocytes # (M) 0.17 k/uL (0-1.0); Neutrophils % (M) 85 %; Nucleated Red Blood Cells 0 /100 WBC (0-0); Total Cells Counted 100
[2021-01-05] MEDS: IPRATROPIUM-ALBUTEROL 3 ML NEB INHALATION SCH ×4 (08:09→21:22)
[2021-01-05] MEDS: LIDOCAINE 5% PATCH TOPICAL SCH (08:20)
[2021-01-05] MEDS: CHLORHEXIDINE GLUCONATE 15 ML CUP MUCOUS MEM SCH ×2 (08:20→19:50)
[2021-01-05] MEDS: METOPROLOL TARTRATE 12.5 MG TAB PO SCH ×2 (08:20→19:50)
[2021-01-05] MEDS: MIDODRINE 5 MG TAB PO SCH ×3 (08:20→18:20)
[2021-01-05] MEDS: PANTOPRAZOLE 40 MG/10 ML VIAL IVP SCH (08:20)
--- NOTE | 2021-01-05 08:27 | XR ---
EXAMINATION TYPE: XR chest 1V portable DATE OF EXAM: 01/05/2021 COMPARISON: 01/04/2021 INDICATION: Tube placement TECHNIQUE: Single frontal view of the chest is obtained. FINDINGS: The heart size is enlarged. The pulmonary vasculature is normal. Left lower lobe infiltrate and/or left pleural effusion is present. There is increased right perihila r lung markings. Endotracheal tube tip is above the cassie. Nasogastric tube transverses the thorax. IMPRESSION: 1. Worsening left lower lobe infiltrate. A small to moderate pleural effusion may be worsening. 2. Increasing perihilar infiltrates more notably on the right. 3. Lines and catheters discussed above
[2021-01-05] MEDS ORDERED: POTASSIUM BICARBONATE/CIT AC 20 MEQ TABLET.EFF NG-TUBE SCH (09:00)
--- NOTE | 2021-01-05 10:29 | PN ---
PROGRESS NOTE Mr. Valero is a 80-year-old male with a known history of chronic persistent atrial fibrillation and history of coronary artery disease who underwent coronary artery bypass grafting, was discharged home and readmitted with progressive dyspnea. Yesterday he had significant progressive abdominal discomfort with evidence of peripheral edema. He was evaluated by Dr. Cartagena, and because of question of his abdominal issue and the inability to advance an NG tube, he was intubated. He is intubated and sedated, on norepinephrine. His urine output has been stable. He had evidence of pleural effusion and underwent thoracentesis on admission. He underwent a CT scan of the abdomen this morning that showed bilateral lower lobe pneumonia consolidation with some ascites, but no evidence of bowel obstruction. His chest x-ray showed worsening left lower lobe pneumonia. He continues to be at this time on amiodarone IV because of the rapid ventricular response. He is on aspirin, Lasix 40 mg IV, metoprolol tartrate 12.5 mg twice a day. PHYSICAL EXAMINATION: Blood pressure is running in the high 80s to 90s with a heart rate in the 110s to 120s. LUNGS: Clear anteriorly. HEART: Irregularly irregular. S1, S2. No S3. No rub. ABDOMEN: Soft. Positive bowel sounds. EXTREMITIES: Plus one edema. LAB DATA: BUN and creatinine 51 and 1.73. Sodium 131. White blood cells of 17.3, which has increased compared to yesterday. His pH is 7.38 with a PO2 of 74. His liver function tests showed an ALT of 300, which has improved. IMPRESSION: 1. Status post coronary artery bypass grafting with respiratory failure and possible pneumonia. 2. Chronic persistent atrial fibrillation. 3. Pleural effusion, status post thoracocentesis. 4. Abdominal pain with no significant abnormality on his CT scan. 5. Hypotension. 6. Worsening renal failure. 7. Liver failure, improving. RECOMMENDATIONS: From the cardiac standpoint, will continue supportive care. He will be started on IV heparin until the decision is made regarding the need to undergo thoracentesis again. Will follow his renal function closely. Depending on his progress, further recommendations will be made. MMODL / IJN: [id number] / MTDD
--- NOTE | 2021-01-05 10:53 | ECHOF ---
Referral Reason:limited echo, rule out tamponade MEASUREMENTS -------- HEIGHT: 167.6 cm WEIGHT: 99.3 kg BP: IVSd: 1.4 cm (0.6 - 1.1) LVIDd: 1.9 cm (3.9 - 5.3) LVPWd: 1.5 cm (0.6 - 1.1) IVSs: 1.7 cm LVIDs: 1.3 cm LVPWs: 2.0 cm FINDINGS -------- Limited Study The left ventricular size is normal. There is moderate concentric left ventricular hypertrophy. O verall left ventricular systolic function is low-normal with, an EF between 50 - 55 %. There is no pericardial effusion. CONCLUSIONS -------- 1. Limited Study 2. The left ventricular size is normal. 3. There is moderate concentric left ventricular hypertrophy. 4. Overall left ventricular systolic function is low-normal with, an EF between 50 - 55 %. 5. There is no pericardial effusion. TUG HAND: Natividad Holt [facility]
--- NOTE | 2021-01-05 11:04 | P.PN ---
Subjective Patient is seen in follow-up for acute kidney injury. Renal function is stable. Urine output 40-50 mL an hour. Currently on 30 mics of Levophed. Intubated. On 60% FiO2. On amiodarone drip for A. fib. Vital signs are stable. On vasopressor support. General: Intubated. HEENT: Head exam is unremarkable. LUNGS: Breath sounds decreased. HEART: Irregular rate and rhythm. ABDOMEN: Soft, no distention. EXTREMITITES: 2+ edema. Objective - Vital Signs Vital signs: Vital Signs Temp 97.5 F L 01/05/21 04:00 Pulse 105 H 01/05/21 08:19 Resp 22 01/05/21 07:00 BP 87/64 01/05/21 07:00 Pulse Ox 94 L 01/05/21 07:00 Intake & Output 01/04/21 01/05/21 01/05/21 18:59 06:59 18:59 Intake Total 247.987 4952.720 10 Output Total 655 470 40 Balance -114.663 818.720 -30 Weight 99.6 kg Intake: IV 100 110 10 .9 @ 10mL/hr 110 10 Cefepime 2 gm In Sodium 100 Chloride 0.9% 100 ml @ 25 mls/hr IVPB Q12HR BERNDA Rx #:[id number] Intake, IV Titration 656.154 3151.720 Amount Amiodarone 360 mg In 400 Dextrose 5% in Water 200 ml @ 1 MG/MIN 33.333 mls/ hr IV .Q6H BRENDA Rx#: [id number] Amiodarone 450 mg In 203.337 Dextrose 5% in Water 250 ml @ 0.5 MG/MIN 16.667 mls/hr IV .Q15H BRENDA Rx#: [id number] Norepinephrine 4 mg In 322.942 Sodium Chloride 0.9% 250 ml @ 0.05 MCG/KG/MIN 18. 802 mls/hr IV .B20A11H BRENDA Rx#:[id number] Piperacillin-Tazobactam 3 200 .375 gm In Sodium Chloride 0.9% 100 ml @ 25 mls/hr IVPB Q8H BRENDA Rx#: [id number] propofoL 1,000 mg In 255.778 Empty Bag 1 bag @ Titrate IV .Q0M BRENDA Rx#: [id number] Tube Feeding 237 Output: Urine 655 470 40 Other: Voiding Method Indwelling Catheter Indwelling Catheter - Labs CBC & Chem 7: 01/05/21 04:52 01/05/21 04:52 Labs: Abnormal Lab Results - Last 24 Hours (Table) 01/04/21 01/04/21 01/04/21 Range/Units 11:14 16:18 17:55 WBC (3.8-10.6) k/uL RBC (4.30-5.90) m/uL Hgb (13.0-17.5) gm/dL Hct (39.0-53.0) % MCHC (31.0-37.0) g/dL RDW (11.5-15.5) % Neutrophils # (1.3-7.7) k/uL Neutrophils # (Manual) (1.3-7.7) k/uL Lymphocytes # (Manual) (1.0-4.8) k/uL PT (9.0-12.0) sec INR (<1.2) ABG pH (7.35-7.45) ABG pCO2 (35-45) mmHg ABG pO2 (83-108) mmHg ABG O2 Saturation (94-97) % Sodium (137-145) mmol/L Carbon Dioxide (22-30) mmol/L BUN (9-20) mg/dL Creatinine (0.66-1.25) mg/dL Glucose (74-99) mg/dL POC Glucose (mg/dL) 201 H 193 H 203 H (75-99) mg/dL Plasma Lactic Acid Juan (0.7-2.0) mmol/L Calcium (8.4-10.2) mg/dL Total Bilirubin (0.2-1.3) mg/dL AST (17-59) U/L ALT (4-49) U/L Alkaline Phosphatase (38-126) U/L Total Protein (6.3-8.2) g/dL Albumin (3.5-5.0) g/dL 01/04/21 01/04/21 01/04/21 Range/Units 19:52 19:52 19:52 WBC (3.8-10.6) k/uL RBC 3.56 L (4.30-5.90) m/uL Hgb 10.7 L (13.0-17.5) gm/dL Hct 35.5 L (39.0-53.0) % MCHC 30.1 L (31.0-37.0) g/dL RDW 16.2 H (11.5-15.5) % Neutrophils # 8.5 H (1.3-7.7) k/uL Neutrophils # (Manual) (1.3-7.7) k/uL Lymphocytes # (Manual) (1.0-4.8) k/uL PT (9.0-12.0) sec INR (<1.2) ABG pH (7.35-7.45) ABG pCO2 (35-45) mmHg ABG pO2 (83-108) mmHg ABG O2 Saturation (94-97) % Sodium 130 L (137-145) mmol/L Carbon Dioxide 21 L (22-30) mmol/L BUN 61 H (9-20) mg/dL Creatinine 1.73 H (0.66-1.25) mg/dL Glucose 161 H (74-99) mg/dL POC Glucose (mg/dL) (75-99) mg/dL Plasma Lactic Acid Juan 4.7 H* (0.7-2.0) mmol/L Calcium 7.8 L (8.4-10.2) mg/dL Total Bilirubin 2.1 H (0.2-1.3) mg/dL AST 121 H (17-59) U/L ALT 365 H (4-49) U/L Alkaline Phosphatase 208 H (38-126) U/L Total Protein 5.1 L (6.3-8.2) g/dL Albumin 2.8 L (3.5-5.0) g/dL 01/04/21 01/04/21 01/04/21 Range/Units 19:52 21:07 22:51 WBC (3.8-10.6) k/uL RBC (4.30-5.90) m/uL Hgb (13.0-17.5) gm/dL Hct (39.0-53.0) % MCHC (31.0-37.0) g/dL RDW (11.5-15.5) % Neutrophils # (1.3-7.7) k/uL Neutrophils # (Manual) (1.3-7.7) k/uL Lymphocytes # (Manual) (1.0-4.8) k/uL PT 18.3 H (9.0-12.0) sec INR 1.9 H (<1.2) ABG pH 7.52 H (7.35-7.45) ABG pCO2 28 L (35-45) mmHg ABG pO2 252 H (83-108) mmHg ABG O2 Saturation 99.9 H (94-97) % Sodium (137-145) mmol/L Carbon Dioxide (22-30) mmol/L BUN (9-20) mg/dL Creatinine (0.66-1.25) mg/dL Glucose (74-99) mg/dL POC Glucose (mg/dL) (75-99) mg/dL Plasma Lactic Acid Juan 3.1 H* (0.7-2.0) mmol/L Calcium (8.4-10.2) mg/dL Total Bilirubin (0.2-1.3) mg/dL AST (17-59) U/L ALT (4-49) U/L Alkaline Phosphatase (38-126) U/L Total Protein (6.3-8.2) g/dL Albumin (3.5-5.0) g/dL 01/04/21 01/05/21 01/05/21 Range/Units 23:49 00:52 04:52 WBC 17.3 H (3.8-10.6) k/uL RBC 3.99 L (4.30-5.90) m/uL Hgb 12.0 L (13.0-17.5) gm/dL Hct (39.0-53.0) % MCHC 30.2 L (31.0-37.0) g/dL RDW 16.3 H (11.5-15.5) % Neutrophils # (1.3-7.7) k/uL Neutrophils # (Manual) 16.40 H (1.3-7.7) k/uL Lymphocytes # (Manual) 0.69 L (1.0-4.8) k/uL PT (9.0-12.0) sec INR (<1.2) ABG pH (7.35-7.45) ABG pCO2 (35-45) mmHg ABG pO2 58 L* (83-108) mmHg ABG O2 Saturation 86.0 L (94-97) % Sodium (137-145) mmol/L Carbon Dioxide (22-30) mmol/L BUN (9-20) mg/dL Creatinine (0.66-1.25) mg/dL Glucose (74-99) mg/dL POC Glucose (mg/dL) 162 H (75-99) mg/dL Plasma Lactic Acid Juan (0.7-2.0) mmol/L Calcium (8.4-10.2) mg/dL Total Bilirubin (0.2-1.3) mg/dL AST (17-59) U/L ALT (4-49) U/L Alkaline Phosphatase (38-126) U/L Total Protein (6.3-8.2) g/dL Albumin (3.5-5.0) g/dL 01/05/21 01/05/21 01/05/21 Range/Units 04:52 04:52 04:52 WBC (3.8-10.6) k/uL RBC (4.30-5.90) m/uL Hgb (13.0-17.5) gm/dL Hct (39.0-53.0) % MCHC (31.0-37.0) g/dL RDW (11.5-15.5) % Neutrophils # (1.3-7.7) k/uL Neutrophils # (Manual) (1.3-7.7) k/uL Lymphocytes # (Manual) (1.0-4.8) k/uL PT 17.5 H (9.0-12.0) sec INR 1.8 H (<1.2) ABG pH (7.35-7.45) ABG pCO2 (35-45) mmHg ABG pO2 (83-108) mmHg ABG O2 Saturation (94-97) % Sodium 131 L (137-145) mmol/L Carbon Dioxide 20 L (22-30) mmol/L BUN 61 H (9-20) mg/dL Creatinine 1.73 H (0.66-1.25) mg/dL Glucose 126 H (74-99) mg/dL POC Glucose (mg/dL) (75-99) mg/dL Plasma Lactic Acid Juan 2.6 H* (0.7-2.0) mmol/L Calcium 7.9 L (8.4-10.2) mg/dL Total Bilirubin 2.7 H (0.2-1.3) mg/dL AST 89 H (17-59) U/L ALT 300 H (4-49) U/L Alkaline Phosphatase 201 H (38-126) U/L Total Protein 4.9 L (6.3-8.2) g/dL Albumin 2.5 L (3.5-5.0) g/dL 01/05/21 01/05/21 01/05/21 Range/Units 05:27 05:58 08:57 WBC (3.8-10.6) k/uL RBC (4.30-5.90) m/uL Hgb (13.0-17.5) gm/dL Hct (39.0-53.0) % MCHC (31.0-37.0) g/dL RDW (11.5-15.5) % Neutrophils # (1.3-7.7) k/uL Neutrophils # (Manual) (1.3-7.7) k/uL Lymphocytes # (Manual) (1.0-4.8) k/uL PT (9.0-12.0) sec INR (<1.2) ABG pH (7.35-7.45) ABG pCO2 (35-45) mmHg ABG pO2 74 L (83-108) mmHg ABG O2 Saturation (94-97) % Sodium (137-145) mmol/L Carbon Dioxide (22-30) mmol/L BUN (9-20) mg/dL Creatinine (0.66-1.25) mg/dL Glucose (74-99) mg/dL POC Glucose (mg/dL) 141 H (75-99) mg/dL Plasma Lactic Acid Juan 3.0 H* (0.7-2.0) mmol/L Calcium (8.4-10.2) mg/dL Total Bilirubin (0.2-1.3) mg/dL AST (17-59) U/L ALT (4-49) U/L Alkaline Phosphatase (38-126) U/L Total Protein (6.3-8.2) g/dL Albumin (3.5-5.0) g/dL Microbiology - Last 24 Hours (Table) 01/04/21 21:08 Sputum Culture - Preliminary Sputum 12/31/20 03:39 Blood Culture - Preliminary Blood No Growth after 120 hours Assessment and Plan Plan: Assessment: 1. Acute kidney injury secondary to ATN secondary to cardiorenal syndrome and hypotension. Creatinine stable at 1.73 today. 2. Volume overload. 3. A. fib with RVR maintained on amiodarone drip. 4. Pseudomonas UTI on antibiotics. 5. Acute hypoxic respiratory failure. 6. Hypervolemic hyponatremia. 7. Shock maintained on Levophed. Also on midodrine. Plan: Lasix drip will be started at 10 mL an hour. Continue to monitor renal function and urine output. Avoid nephrotoxins. Wean FiO2 and vasopressors.
--- NOTE | 2021-01-05 11:22 | P.PN ---
Subjective Progress Note Date: 01/05/21 HISTORY OF PRESENT ILLNESS This is a 80-year-old male patient of Dr. Campos and Dr. Mullins with past medical history of chronic persistent atrial fibrillation, diabetes mellitus type 2, hypertension, hyperlipidemia, history of pituitary tumor resection, obstructive sleep apnea on BiPAP, gastroesophageal reflux disease, benign prostatic hypertrophy. He should also has history of coronary artery disease status post PCI to the LAD in 2005, heart catheterization in October 2020 found severe triple-vessel disease, subsequently admitted to the hospital for elective coronary artery bypass grafting 12/16 for four-vessel bypass MORAN to LAD, left radial artery from the aorta to the first obtuse marginal artery, reverse saphenous vein graft from the aorta to the second diagonal artery, reverse saphenous vein graft from the aorta to the posterior descending artery, endoscopic harvesting of the left radial artery, endoscopic harvesting of the left greater saphenous vein from ankle to the groin, exclusion of the left atrial appendage. During his last admission, he remained in ICU,Until December 24,, and after he was transferred to [facility] for cardiac recovery program. He has chronic atrial fibrillation, diabetes mellitus type 2, hypertension, hyperlipidemia, history of pituitary gland resection, obstructive sleep apnea, BPH with urinary retention, and delirium.. At the time of discharge, he was on Coumadin and Singulair Cardizem CD lisinopril Tylenol, he was taken off atenolol Vytorin lisinopril Imdur aspirin and nitro. -He comes back to the emergency room 2 days later, from [facility], secondary to shortness of breath, and edema. She also has worsening of her liver issues, with no visible jaundice. On ER presentation, he has indwelling Barrow catheter, there is no fever, no focal deficit, chest pain, he has shortness of breath, no vomiting, no diarrhea, no melena. In the emergency room, EKG shows atrial fibrillation heart rate of 79, no significant change compared to 927 EKG, double basic count is 15, hemoglobin of 9, sodium of 131, BUN 62 creatinine 4.7, CO2 of 19 total bili of 7.3, AST 949 ALT 881, alkaline phosphatase 411, troponin is stagnant at 0.14, and 0.148. Lactic acid level was 2.1, INR is 3.3 ultrasound of the gallbladder, shows common bile duct is normal, liver is enlarged, otherwise no other pathologies noted. Chest x-ray shows bilateral pleural effusion, basilar pulmonary infiltrates, which slightly is worse compared to previous, mild heart failure is possible, cardiomegaly some change patient is admitted to ICU with consultation to critical care medicine Dr. Vásquez, and cardiology. Chest ultrasound is ordered CMV and hepatitis panels ordered, patient would need a CAT scan of the abdomen, to eval for spleen gallbladder, Tylenol is discontinued, Lipitor is discontinued check for haptoglobin, reticulocyte count, and iron studies to evaluate portal system. No mortgage specialist operations planner in the hospital until January 1212/29: Repeat blood work reveals WBC 12.6, hemoglobin 10, platelet count 265. INR is 3. Sodium 132, potassium 4.1, chloride 100, CO2 18, BUN 65 and creatinine 1.81, blood sugar 119. Total bilirubin 6.5, AST 493, ALT 663, alkaline phosphatase 360. INR is 3.0. Magnesium 2.6. Lipase 473. CMV nonreactive 2 draws. Hepatitis panel negative. Repeat chest x-ray reveals patchy perihilar and basilar infiltrates/atelectasis as well as pleural effusions persist without significant interval change. Dr. Cartagena has ordered for vitamin K 2.5 mg and repeat INR with plan for thoracentesis once INR is und er 2. Patient is also followed by cardiology and Lasix decreased to 40 mg IV daily. Echocardiogram reveals EF of 45-60% with moderate concentric left hypertrophy, LA is severely dilated, mild to moderate mitral regurgitation, mild tricuspid regurgitation. Patient denies having any shortness of breath at rest. He denies abdominal pain, no nausea. He has had good urine output around 35 mL per hour. 12/30: Patient underwent right sided thoracentesis this morning with Dr. Cartagena with removal of approximately 650 ML's of turbid fluid. Repeat chest x- ray following procedure showed no complications. Patient was on BiPAP during the night and currently on O2 by nasal cannula at 3 L with pulse ox of 97%. Blood pressure 101/64, heart rate 81, afebrile. Patient has been seen and followed by nephrology for acute kidney injury secondary to hypotension and hypoperfusion. Plan is to continue diuresis in the patient, hold MAURA inhibitor, check cortisol level, monitor I&O's. Midodrine was increased yesterday. Repeat blood work today reveals WBC 12.2, hemoglobin 9.9 and platelet count 312. INR this morning was 1.9. Sodium 128, potassium 4.7, chloride 95, CO2 21, BUN 71 and creatinine 2.11. Blood sugars running between 109 and 134. Repeat liver function tests reveal total bilirubin 6, AST 28, ALT 535, alkaline phosphatase 295. Magnesium 2.8. Cortisol level came back at 27. Patient will be transferred to the cardiac stepdown unit. 12/31: Patient remains in the intensive care unit, today resting in bed on BiPAP. Patient became hypotensive overnight and required levo fed and was transferred back to the intensive care unit. Levo fed is currently off. Repeat blood work reveals WBC 16.5, hemoglobin 10.4, platelet count 282. Sodium 125, potassium 5.8, BUN 77 and creatinine 2.75. AST 1302, ALT 987, alkaline phosphatase 236. INR 2.9. Patient is followed by multiple consultants including cardiology, pulmonary medicine, nephrology and cardiothoracic surgery. Patient has been reaching 1000 on incentive spirometry. CAT scan of the abdomen and pelvis reveals nonobstructive left nephrolithiasis. Left pleural effusion difficult to exclude basilar pneumonia or atelectasis. There may be a posterior dependent he will. Cardiac. Coronary artery disease. Repeat chest x-ray reveals stable bibasilar infiltrate and small left pleural effusion. Renal ultrasound reveals limited assessment of left kidney demonstrate no definite hydronephrosis or hydroureter lysis. No hydronephrosis on the right kidney 01/01: Patient remains in the intensive care unit, resting in chair on nasal oxygen and appears to be comfortable. Pulse ox is 99%, blood pressure 80/65 and he is on levo fed. Lopressor was decreased by nephrology. Heart rate is 106, afebrile. Repeat blood work reveals WBC 10.1, hemoglobin 10.3, platelet count 291. INR 2.7. Sodium 130, potassium 4.0, chloride 94, CO2 25, BUN 76 and creatinine 2.38. Calcium 7.7. Magnesium 2.8. AST 824, ALT 920, alkaline p hosphatase 210. Patient received calcium gluconate 1 g this morning. Chest x-ray reveals pleural parenchymal density left lower lobe persistent appears to be somewhat improved. 01/02: Patient remains in intensive care unit. He appears to be less jaundiced today. Urine is blood tinged. He states he is uncomfortable all over his body but no specific pain. He states he is skinny interrupted sleep throughout the night and melatonin increased. He continues not have appetite and Remeron added. Discussed with cardiothoracic surgery transitioning patient to eliquis although patient had episodes of nausea with this and to discuss other options, and also regard the posterior hemopericardium. Patient has been afebrile, heart rate 105, blood pressure 103/70, pulse ox 99% 2 L nasal cannula. Repeat blood work reveals WBC 10.8, hemoglobin 10.6, platelet count 251. Sodium 131, potassium 3.7, chloride 100, CO2 22, BUN 16 creatinine 1.41. Blood sugars are running between 105 and 144. Lactic acid 2.1. Calcium 7.8. Liver function tests are improving with total bilirubin 3.5, AST 449, ALT 684, alkaline phosphatase 194. LDH 1192. Lipase 302. 01/03: Patient evaluated this morning, remains in intensive care unit, patient is awake and alert, is currently on room air. Repeat chest x-ray shows pleural parenchymal lung base that is unchanged. Repeat blood work reveals hemoglobin 10.6, platelet count of 220, INR 3.1, sodium 132, BUN 58, creatinine 1.48, AST 319, ALT 578, Alk Phos 190. Liver function tests are improving. Urine culture showed Pseudomonas aeruginosa, he is on cefepime. Telemetry showing atrial fibrillation, he was started on xarelto yesterday for anticoagulation, and was held today for increase in INR. He was given calcium gluconate and albumin today and also a dose of Lasix Vital signs are heart rate 103, respiratory rate 13, blood pressure 92/72, 94% on room air. 01/04: Patient evaluated this morning, remains in the ICU, sitting up resting in the bedside recliner, patient is awake and alert. Labs show hemoglobin 10.5, platelets 221, INR 2, potassium 4.1, BUN 59, creatinine 1.57, total bilirubin 2.8, AST 188, ALT 457, alk phos 222, albumin 2.9. Telemetry still showing atrial fibrillation with an elevated rate, cardiology is following and is on amiodarone 400 mg twice a day. Patient continues to have problems with blood pressure and postural hypotension. Flomax was discontinued, urology consult appreciated. Recommends to continue with the Barrow catheter until he is more stabilized and ambulating, then we'll plan to remove the catheter and do a voiding trial. Pulmonary reviewed repeat chest x-ray from today and shows a moderate sized left sided pleural effusion, right-sided pleural effusion has recovered. Pulmonary considering possibly doing another thoracentesis on the left side. Patient does not require any pressors at this point. Patient still has extensive edema in the upper and lower extremities with signs of fluid overload, Lasix 40 mg IV ordered. He continues on cefepime for Pseudomonas aeruginosa in the urine. Oral intake continues to be poor, recently started on Remeron. 01/05: Patient was intubated last evening and was started on propofol, norepinephrine and was on amiodarone. Patient is currently on mechanical ventilation with tidal volume 400, FiO2 60, PEEP of 10. He is undergoing echocardiogram at this time which reported EF of 50-55% with moderate concentric left ventricular hypertrophy, no pericardial effusion.. He continues to have significant anasarca and edema. Heart rate is running in the low 100s with atrial fibrillation. Repeat blood work reveals WBC 17.3, hemoglobin 12, platelet count 185. INR is 1.8. Sodium 131, potassium 3.9, chloride 99, CO2 20, BUN 61 and creatinine 1.73. Blood sugars are running between 141 and 203. Total bilirubin 2.7, AST 89, ALT 300, alkaline phosphatase 201. Cortisol level LV. Chest x-ray reveals worsening left lower lobe infiltrate. Small to modera te pleural effusion may be worsening. Increased perihilar infiltrates more notably on the right. CT of the abdomen and pelvis with contrast revealed bilateral lower lobe pulmonary consolidation and pleural fluid. Cardiomegaly. Congestive heart failure is possible. Some loculated ascites fluid noted in the abdomen. No free air. No sign of mechanical bowel obstruction. Subcutaneous edema around the abdomen. REVIEW OF SYSTEMS unable to obtain due to intubation PHYSICAL EXAMINATION Gen: This is a 80-year-old male. Patient is resting in ICU bed, intubated and on mechanical ventilation. HEENT: Head is atraumatic, normocephalic. Pupils equal, round. Sclerae is anicteric. Oral ET tube. NECK: Supple. No JVD. No lymphadenopathy. No thyromegaly. LUNGS: Diminished to the bilateral basis. No intercostal retractions. HEART: Irregular rate and rhythm. No murmur. ABDOMEN: Soft. Bowel sounds are present. No masses. No tenderness. Barrow catheter. EXTREMITIES: 3+ bilateral pedal edema. No calf tenderness. NEUROLOGICAL: Patient is intubated ASSESSMENT AND PLAN 1. Acute hypoxic respiratory failure secondary to fluid overload and pleural effusions. Intubation on 01/04. Patient is status post right-sided thoracentesis on 12/30 of 650 mL, continue Lasix oral 40 mg daily, monitor I&O and daily weights, monitor renal function and electrolytes. 2. Severe coagulopathy, on Coumadin, with worsening of transaminitis, with jaundice, suspect hepatobiliary obstruction, ischemic liver cirrhosis. Lipitor and Tylenol was discontinued and held. Patient placed on heparin drip per cardiology. 3. Acute kidney injury and chronic kidney disease stage II secondary to hypoperfusion, obstructive uropathy with balloon not in the bladder. Consult with nephrology appreciated. Avoid nephrotoxic agents. Barrow cath apparently was not in the bladder and has been replaced. 4. Metabolic acidosis secondary to acute kidney injury. 5. Coronary artery disease status post 4 vessel CABG 12/16. Continue current management per cardio thoracic surgery. Continue aspirin 81 mg daily, Lipitor on hold, Lopressor 12.5 mg twice daily 6. Chronic persistent atrial fibrillation. Heparin drip, amiodarone drip, L opressor 12.5 mg twice daily. 7. Acute hypoxemic respiratory failure, intubation on 01/04, followed closely by critical care medicine and pulmonary. 8. Hypovolemic hyponatremia. Continue to monitor sodium. 9. Diabetes mellitus type 2. Continue with NovoLog scale before meals and at bedtime, blood sugar is controlled. 10. Hypertension. Patient is currently hypotensive on norepinephrine. Continue Lopressor. 11. Hyperlipidemia. Hold Lipitor. 12. Urinary retention. Maintain Barrow catheter. 13. History of pituitary gland resection. 14. Obstructive sleep apnea on BiPAP. 15. Gastroesophageal reflux disease. 16. 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 17. DVT prophylaxis. HA hose. 18. Postural hypotension. Flomax held. 19. GI prophylaxis. Protonix. DISCHARGE PLAN Most likely return to [facility] for subacute rehab. Impression and plan of care have been directed as dictated by the signing physician. Erica Alfredo nurse practitioner acting as scribe for signing physician. Objective - Vital Signs Vital signs: Vital Signs Temp 97.5 F L 01/05/21 04:00 Pulse 105 H 01/05/21 08:19 Resp 22 01/05/21 07:00 BP 87/64 01/05/21 07:00 Pulse Ox 94 L 01/05/21 07:00 Intake & Output 01/04/21 01/05/21 01/05/21 18:59 06:59 18:59 Intake Total 859.560 5280.720 10 Output Total 655 470 40 Balance -114.663 818.720 -30 Weight 99.6 kg Intake: IV 100 110 10 .9 @ 10mL/hr 110 10 Cefepime 2 gm In Sodium 100 Chloride 0.9% 100 ml @ 25 mls/hr IVPB Q12HR BRENDA Rx #:[id number] Intake, IV Titration 393.733 9110.720 Amount Amiodarone 360 mg In 400 Dextrose 5% in Water 200 ml @ 1 MG/MIN 33.333 mls/ hr IV .Q6H BRENDA Rx#: [id number] Amiodarone 450 mg In 203.337 Dextrose 5% in Water 250 ml @ 0.5 MG/MIN 16.667 mls/hr IV .Q15H [facility]ENDA Rx#: [id number] Norepinephrine 4 mg In 322.942 Sodium Chloride 0.9% 250 ml @ 0.05 MCG/KG/MIN 18. 802 mls/hr IV .[id number] [facility]ENDA Rx#:[id number] Piperacillin-Tazobactam 3 200 .375 gm In Sodium Chloride 0.9% 100 ml @ 25 mls/hr IVPB Q8H [facility]ENDA Rx#: [id number] propofoL 1,000 mg In 255.778 Empty Bag 1 bag @ Titrate IV .Q0M BRENDA Rx#: [id number] Tube Feeding 237 Output: Urine 655 470 40 Other: Voiding Method Indwelling Catheter Indwelling Catheter - Labs CBC & Chem 7: 01/05/21 04:52 01/05/21 04:52 Labs: Abnormal Lab Results - Last 24 Hours (Table) 01/04/21 01/04/21 01/04/21 Range/Units 11:14 16:18 17:55 WBC (3.8-10.6) k/uL RBC (4.30-5.90) m/uL Hgb (13.0-17.5) gm/dL Hct (39.0-53.0) % MCHC (31.0-37.0) g/dL RDW (11.5-15.5) % Neutrophils # (1.3-7.7) k/uL Neutrophils # (Manual) (1.3-7.7) k/uL Lymphocytes # (Manual) (1.0-4.8) k/uL PT (9.0-12.0) sec INR (<1.2) ABG pH (7.35-7.45) ABG pCO2 (35-45) mmHg ABG pO2 (83-108) mmHg ABG O2 Saturation (94-97) % Sodium (137-145) mmol/L Carbon Dioxide (22-30) mmol/L BUN (9-20) mg/dL Creatinine (0.66-1.25) mg/dL Glucose (74-99) mg/dL POC Glucose (mg/dL) 201 H 193 H 203 H (75-99) mg/dL Plasma Lactic Acid Juan (0.7-2.0) mmol/L Calcium (8.4-10.2) mg/dL Total Bilirubin (0.2-1.3) mg/dL AST (17-59) U/L ALT (4-49) U/L Alkaline Phosphatase (38-126) U/L Total Protein (6.3-8.2) g/dL Albumin (3.5-5.0) g/dL 01/04/21 01/04/21 01/04/21 Range/Units 19:52 19:52 19:52 WBC (3.8-10.6) k/uL RBC 3.56 L (4.30-5.90) m/uL Hgb 10.7 L (13.0-17.5) gm/dL Hct 35.5 L (39.0-53.0) % MCHC 30.1 L (31.0-37.0) g/dL RDW 16.2 H (11.5-15.5) % Neutrophils # 8.5 H (1.3-7.7) k/uL Neutrophils # (Manual) (1.3-7.7) k/uL Lymphocytes # (Manual) (1.0-4.8) k/uL PT (9.0-12.0) sec INR (<1.2) ABG pH (7.35-7.45) ABG pCO2 (35-45) mmHg ABG pO2 (83-108) mmHg ABG O2 Saturation (94-97) % Sodium 130 L (137-145) mmol/L Carbon Dioxide 21 L (22-30) mmol/L BUN 61 H (9-20) mg/dL Creatinine 1.73 H (0.66-1.25) mg/dL Glucose 161 H (74-99) mg/dL POC Glucose (mg/dL) (75-99) mg/dL Plasma Lactic Acid Juan 4.7 H* (0.7-2.0) mmol/L Calcium 7.8 L (8.4-10.2) mg/dL Total Bilirubin 2.1 H (0.2-1.3) mg/dL AST 121 H (17-59) U/L ALT 365 H (4-49) U/L Alkaline Phosphatase 208 H (38-126) U/L Total Protein 5.1 L (6.3-8.2) g/dL Albumin 2.8 L (3.5-5.0) g/dL 01/04/21 01/04/21 01/04/21 Range/Units 19:52 21:07 22:51 WBC (3.8-10.6) k/uL RBC (4.30-5.90) m/uL Hgb (13.0-17.5) gm/dL Hct (39.0-53.0) % MCHC (31.0-37.0) g/dL RDW (11.5-15.5) % Neutrophils # (1.3-7.7) k/uL Neutrophils # (Manual) (1.3-7.7) k/uL Lymphocytes # (Manual) (1.0-4.8) k/uL PT 18.3 H (9.0-12.0) sec INR 1.9 H (<1.2) ABG pH 7.52 H (7.35-7.45) ABG pCO2 28 L (35-45) mmHg ABG pO2 252 H (83-108) mmHg ABG O2 Saturation 99.9 H (94-97) % Sodium (137-145) mmol/L Carbon Dioxide (22-30) mmol/L BUN (9-20) mg/dL Creatinine (0.66-1.25) mg/dL Glucose (74-99) mg/dL POC Glucose (mg/dL) (75-99) mg/dL Plasma Lactic Acid Juan 3.1 H* (0.7-2.0) mmol/L Calcium (8.4-10.2) mg/dL Total Bilirubin (0.2-1.3) mg/dL AST (17-59) U/L ALT (4-49) U/L Alkaline Phosphatase (38-126) U/L Total Protein (6.3-8.2) g/dL Albumin (3.5-5.0) g/dL 01/04/21 01/05/21 01/05/21 Range/Units 23:49 00:52 04:52 WBC 17.3 H (3.8-10.6) k/uL RBC 3.99 L (4.30-5.90) m/uL Hgb 12.0 L (13.0-17.5) gm/dL Hct (39.0-53.0) % MCHC 30.2 L (31.0-37.0) g/dL RDW 16.3 H (11.5-15.5) % Neutrophils # (1.3-7.7) k/uL Neutrophils # (Manual) 16.40 H (1.3-7.7) k/uL Lymphocytes # (Manual) 0.69 L (1.0-4.8) k/uL PT (9.0-12.0) sec INR (<1.2) ABG pH (7.35-7.45) ABG pCO2 (35-45) mmHg ABG pO2 58 L* (83-108) mmHg ABG O2 Saturation 86.0 L (94-97) % Sodium (137-145) mmol/L Carbon Dioxide (22-30) mmol/L BUN (9-20) mg/dL Creatinine (0.66-1.25) mg/dL Glucose (74-99) mg/dL POC Glucose (mg/dL) 162 H (75-99) mg/dL Plasma Lactic Acid Juan (0.7-2.0) mmol/L Calcium (8.4-10.2) mg/dL Total Bilirubin (0.2-1.3) mg/dL AST (17-59) U/L ALT (4-49) U/L Alkaline Phosphatase (38-126) U/L Total Protein (6.3-8.2) g/dL Albumin (3.5-5.0) g/dL 01/05/21 01/05/21 01/05/21 Range/Units 04:52 04:52 04:52 WBC (3.8-10.6) k/uL RBC (4.30-5.90) m/uL Hgb (13.0-17.5) gm/dL Hct (39.0-53.0) % MCHC (31.0-37.0) g/dL RDW (11.5-15.5) % Neutrophils # (1.3-7.7) k/uL Neutrophils # (Manual) (1.3-7.7) k/uL Lymphocytes # (Manual) (1.0-4.8) k/uL PT 17.5 H (9.0-12.0) sec INR 1.8 H (<1.2) ABG pH (7.35-7.45) ABG pCO2 (35-45) mmHg ABG pO2 (83-108) mmHg ABG O2 Saturation (94-97) % Sodium 131 L (137-145) mmol/L Carbon Dioxide 20 L (22-30) mmol/L BUN 61 H (9-20) mg/dL Creatinine 1.73 H (0.66-1.25) mg/dL Glucose 126 H (74-99) mg/dL POC Glucose (mg/dL) (75-99) mg/dL Plasma Lactic Acid Juan 2.6 H* (0.7-2.0) mmol/L Calcium 7.9 L (8.4-10.2) mg/dL Total Bilirubin 2.7 H (0.2-1.3) mg/dL AST 89 H (17-59) U/L ALT 300 H (4-49) U/L Alkaline Phosphatase 201 H (38-126) U/L Total Protein 4.9 L (6.3-8.2) g/dL Albumin 2.5 L (3.5-5.0) g/dL 01/05/21 01/05/21 01/05/21 Range/Units 05:27 05:58 08:57 WBC (3.8-10.6) k/uL RBC (4.30-5.90) m/uL Hgb (13.0-17.5) gm/dL Hct (39.0-53.0) % MCHC (31.0-37.0) g/dL RDW (11.5-15.5) % Neutrophils # (1.3-7.7) k/uL Neutrophils # (Manual) (1.3-7.7) k/uL Lymphocytes # (Manual) (1.0-4.8) k/uL PT (9.0-12.0) sec INR (<1.2) ABG pH (7.35-7.45) ABG pCO2 (35-45) mmHg ABG pO2 74 L (83-108) mmHg ABG O2 Saturation (94-97) % Sodium (137-145) mmol/L Carbon Dioxide (22-30) mmol/L BUN (9-20) mg/dL Creatinine (0.66-1.25) mg/dL Glucose (74-99) mg/dL POC Glucose (mg/dL) 141 H (75-99) mg/dL Plasma Lactic Acid Juan 3.0 H* (0.7-2.0) mmol/L Calcium (8.4-10.2) mg/dL Total Bilirubin (0.2-1.3) mg/dL AST (17-59) U/L ALT (4-49) U/L Alkaline Phosphatase (38-126) U/L Total Protein (6.3-8.2) g/dL Albumin (3.5-5.0) g/dL Microbiology - Last 24 Hours (Table) 12/31/20 03:39 Blood Culture - Preliminary Blood No Growth after 120 hours
[2021-01-05 11:43] LABS: Glucose,Whole Blood 125 mg/dL (75-99)
--- NOTE | 2021-01-05 11:44 | P.PN ---
Subjective Progress Note Date: 01/05/21 Principal diagnosis: Shortness of breath, bilateral pleural effusions, acute transaminitis, and acute kidney injury. 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 The patient was seen in follow-up today 01/05/2021 at his bedside in the intensive care unit. Last evening shortly after dinner the patient had some complaints of nausea with vomiting, and some acute respiratory distress requiring reintubation with mechanical ventilator support. An OG tube was placed with 200 mL of bile-colored drainage throughout the night, this morning he has absent bowel sounds. A computed tomography scan of his abdomen was completed early this morning which showed bilateral lower lobe pulmonary consolidation and total fluid, cardiomegaly, some loculated ascites fluid noted in the abdomen with no sign of mechanical obstruction and subcutaneous edema around the abdomen. Currently he remains intubated, with mechanical ventilator support and sedated with propofol drip at 40 mcg/kg/m. Current mechanical ventilator settings are as follows assist control 22, TV 400, FiO2 60% PEEP of 10. Arterial blood gas results this morning show a pH is 7.38, pCO2 39, pO2 74, HCO3 23, oxygen saturation 94% and base excess -1.7. Norepinephrine drip is infusing at 0.24 mcg/m for blood pressure support and his blood pressure is currently 91/58. Bedside telemetry showing atrial fibrillation with bundle branch block heart rate 110 BPM. Amiodarone drip is infusing at 1 mg/m. Laboratory results this morning show a WBC count of 17.3, hemoglobin 12.0, hematocrit 39.6, platelets 135, PT 17.5, INR 1.8, sodium 131, potassium 3.9, BUN 61, creatinine 1.73, positive lactic acid 2.6, calcium 7.9, total bilirubin 2.7, AST 89 and ALT 300. He is currently on Zosyn for antibiotic coverage. He has been afebrile the last 24 hours. Objective - Vital Signs Vital signs: Vital Signs Temp 97.5 F L 01/05/21 04:00 Pulse 107 H 01/05/21 07:00 Resp 22 01/05/21 07:00 BP 87/64 01/05/21 07:00 Pulse Ox 94 L 01/05/21 07:00 Intake & Output 01/04/21 01/05/21 01/05/21 18:59 06:59 18:59 Intake Total 607.196 8773.720 10 Output Total 655 470 40 Balance -114.663 818.720 -30 Weight 99.6 kg Intake: IV 100 110 10 .9 @ 10mL/hr 110 10 Cefepime 2 gm In Sodium 100 Chloride 0.9% 100 ml @ 25 mls/hr IVPB Q12HR [facility] Rx #:[id number] Intake, IV Titration 213.528 0578.720 Amount Amiodarone 360 mg In 400 Dextrose 5% in Water 200 ml @ 1 MG/MIN 33.333 mls/ hr IV .Q6H [facility] Rx#: [id number] Amiodarone 450 mg In 203.337 Dextrose 5% in Water 250 ml @ 0.5 MG/MIN 16.667 mls/hr IV .Q15H [facility] Rx#: [id number] Norepinephrine 4 mg In 322.942 Sodium Chloride 0.9% 250 ml @ 0.05 MCG/KG/MIN 18. 802 mls/hr IV .[id number] [facility] Rx#:[id number] Piperacillin-Tazobactam 3 200 .375 gm In Sodium Chloride 0.9% 100 ml @ 25 mls/hr IVPB Q8H [facility] Rx#: [id number] propofoL 1,000 mg In 255.778 Empty Bag 1 bag @ Titrate IV .Q0M [facility]EN[facility] Rx#: [id number] Tube Feeding 237 Output: Urine 655 470 40 Other: Voiding Method Indwelling Catheter Indwelling Catheter - Exam CONSTITUTIONAL: Currently is intubated with mechanical ventilator support, sedated on propofol drip, is not following any commands at this time. No apparent acute distress. HEENT: Neck is supple, no JVD, no lymphadenopathy. RESPIRATORY: Lungs sounds essentially clear throughout, diminished to his bila teral bases. Respirations are symmetrical and nonlabored with mechanical ventilator support. Mechanical ventilator settings are as follows assist control 22, TV 400, FiO2 60% PEEP of 10. Current oxygen saturations are 94% on current mechanical ventilator settings. CARDIOVASCULAR: Irregular rhythm and tachycardic rate. S1 and S2 present, negative for S3, gallop or murmur. Sternum is stable. Palpable peripheral pulses bilaterally, generalized anasarca. Heart hugger in place. Knee-high HA hose and sequential compression devices in place to his bilateral lower extremities. GASTROINTESTINAL: Abdomen soft, and slightly distended. Absent bowel sounds. No guarding or rigidity. Last bowel movement 01/02/2021. GENITOURINARY: Barrow present draining cloudy, holly urine. Output 310 mL in the last 8 hours. INTEGUMENTARY: Skin is warm and dry with no evidence of clubbing or cyanosis. Midline sternal incision clean dry and well approximated, covered with dry intact dressing. Left lower extremity EVH sites well approximated without redness or drainage. Left arm radial artery harvest sites clean, dry and approximated. No drainage or redness is present. Weeping edema to his bilate ral lower extremities and bilateral upper extremities. NEUROLOGIC: Unable to accurately assess at this time as the patient is sedated on propofol drip. MUSKULOSKELETAL: Unable to accurately assess at this time as the patient is sedated on propofol drip. PSYCHIATRIC: Unable to accurately assess at this time as the patient is sedated on propofol drip. - Allied health notes Allied health notes reviewed: nursing - Labs CBC & Chem 7: 01/05/21 04:52 01/05/21 04:52 Labs: Abnormal Lab Results - Last 24 Hours (Table) 01/04/21 01/04/21 01/04/21 Range/Units 11:14 16:18 17:55 WBC (3.8-10.6) k/uL RBC (4.30-5.90) m/uL Hgb (13.0-17.5) gm/dL Hct (39.0-53.0) % MCHC (31.0-37.0) g/dL RDW (11.5-15.5) % Neutrophils # (1.3-7.7) k/uL Neutrophils # (Manual) (1.3-7.7) k/uL Lymphocytes # (Manual) (1.0-4.8) k/uL PT (9.0-12.0) sec INR (<1.2) ABG pH (7.35-7.45) ABG pCO2 (35-45) mmHg ABG pO2 (83-108) mmHg ABG O2 Saturation (94-97) % Sodium (137-145) mmol/L Carbon Dioxide (22-30) mmol/L BUN (9-20) mg/dL Creatinine (0.66-1.25) mg/dL Glucose (74-99) mg/dL POC Glucose (mg/dL) 201 H 193 H 203 H (75-99) mg/dL Plasma Lactic Acid Juan (0.7-2.0) mmol/L Calcium (8.4-10.2) mg/dL Total Bilirubin (0.2-1.3) mg/dL AST (17-59) U/L ALT (4-49) U/L Alkaline Phosphatase (38-126) U/L Total Protein (6.3-8.2) g/dL Albumin (3.5-5.0) g/dL 01/04/21 01/04/21 01/04/21 Range/Units 19:52 19:52 19:52 WBC (3.8-10.6) k/uL RBC 3.56 L (4.30-5.90) m/uL Hgb 10.7 L (13.0-17.5) gm/dL Hct 35.5 L (39.0-53.0) % MCHC 30.1 L (31.0-37.0) g/dL RDW 16.2 H (11.5-15.5) % Neutrophils # 8.5 H (1.3-7.7) k/uL Neutrophils # (Manual) (1.3-7.7) k/uL Lymphocytes # (Manual) (1.0-4.8) k/uL PT (9.0-12.0) sec INR (<1.2) ABG pH (7.35-7.45) ABG pCO2 (35-45) mmHg ABG pO2 (83-108) mmHg ABG O2 Saturation (94-97) % Sodium 130 L (137-145) mmol/L Carbon Dioxide 21 L (22-30) mmol/L BUN 61 H (9-20) mg/dL Creatinine 1.73 H (0.66-1.25) mg/dL Glucose 161 H (74-99) mg/dL POC Glucose (mg/dL) (75-99) mg/dL Plasma Lactic Acid Juan 4.7 H* (0.7-2.0) mmol/L Calcium 7.8 L (8.4-10.2) mg/dL Total Bilirubin 2.1 H (0.2-1.3) mg/dL AST 121 H (17-59) U/L ALT 365 H (4-49) U/L Alkaline Phosphatase 208 H (38-126) U/L Total Protein 5.1 L (6.3-8.2) g/dL Albumin 2.8 L (3.5-5.0) g/dL 01/04/21 01/04/21 01/04/21 Range/Units 19:52 21:07 22:51 WBC (3.8-10.6) k/uL RBC (4.30-5.90) m/uL Hgb (13.0-17.5) gm/dL Hct (39.0-53.0) % MCHC (31.0-37.0) g/dL RDW (11.5-15.5) % Neutrophils # (1.3-7.7) k/uL Neutrophils # (Manual) (1.3-7.7) k/uL Lymphocytes # (Manual) (1.0-4.8) k/uL PT 18.3 H (9.0-12.0) sec INR 1.9 H (<1.2) ABG pH 7.52 H (7.35-7.45) ABG pCO2 28 L (35-45) mmHg ABG pO2 252 H (83-108) mmHg ABG O2 Saturation 99.9 H (94-97) % Sodium (137-145) mmol/L Carbon Dioxide (22-30) mmol/L BUN (9-20) mg/dL Creatinine (0.66-1.25) mg/dL Glucose (74-99) mg/dL POC Glucose (mg/dL) (75-99) mg/dL Plasma Lactic Acid Juan 3.1 H* (0.7-2.0) mmol/L Calcium (8.4-10.2) mg/dL Total Bilirubin (0.2-1.3) mg/dL AST (17-59) U/L ALT (4-49) U/L Alkaline Phosphatase (38-126) U/L Total Protein (6.3-8.2) g/dL Albumin (3.5-5.0) g/dL 01/04/21 01/05/21 01/05/21 Range/Units 23:49 00:52 04:52 WBC 17.3 H (3.8-10.6) k/uL RBC 3.99 L (4.30-5.90) m/uL Hgb 12.0 L (13.0-17.5) gm/dL Hct (39.0-53.0) % MCHC 30.2 L (31.0-37.0) g/dL RDW 16.3 H (11.5-15.5) % Neutrophils # (1.3-7.7) k/uL Neutrophils # (Manual) 16.40 H (1.3-7.7) k/uL Lymphocytes # (Manual) 0.69 L (1.0-4.8) k/uL PT (9.0-12.0) sec INR (<1.2) ABG pH (7.35-7.45) ABG pCO2 (35-45) mmHg ABG pO2 58 L* (83-108) mmHg ABG O2 Saturation 86.0 L (94-97) % Sodium (137-145) mmol/L Carbon Dioxide (22-30) mmol/L BUN (9-20) mg/dL Creatinine (0.66-1.25) mg/dL Glucose (74-99) mg/dL POC Glucose (mg/dL) 162 H (75-99) mg/dL Plasma Lactic Acid Juan (0.7-2.0) mmol/L Calcium (8.4-10.2) mg/dL Total Bilirubin (0.2-1.3) mg/dL AST (17-59) U/L ALT (4-49) U/L Alkaline Phosphatase (38-126) U/L Total Protein (6.3-8.2) g/dL Albumin (3.5-5.0) g/dL 01/05/21 01/05/21 01/05/21 Range/Units 04:52 04:52 04:52 WBC (3.8-10.6) k/uL RBC (4.30-5.90) m/uL Hgb (13.0-17.5) gm/dL Hct (39.0-53.0) % MCHC (31.0-37.0) g/dL RDW (11.5-15.5) % Neutrophils # (1.3-7.7) k/uL Neutrophils # (Manual) (1.3-7.7) k/uL Lymphocytes # (Manual) (1.0-4.8) k/uL PT 17.5 H (9.0-12.0) sec INR 1.8 H (<1.2) ABG pH (7.35-7.45) ABG pCO2 (35-45) mmHg ABG pO2 (83-108) mmHg ABG O2 Saturation (94-97) % Sodium 131 L (137-145) mmol/L Carbon Dioxide 20 L (22-30) mmol/L BUN 61 H (9-20) mg/dL Creatinine 1.73 H (0.66-1.25) mg/dL Glucose 126 H (74-99) mg/dL POC Glucose (mg/dL) (75-99) mg/dL Plasma Lactic Acid Juan 2.6 H* (0.7-2.0) mmol/L Calcium 7.9 L (8.4-10.2) mg/dL Total Bilirubin 2.7 H (0.2-1.3) mg/dL AST 89 H (17-59) U/L ALT 300 H (4-49) U/L Alkaline Phosphatase 201 H (38-126) U/L Total Protein 4.9 L (6.3-8.2) g/dL Albumin 2.5 L (3.5-5.0) g/dL 01/05/21 01/05/21 Range/Units 05:27 05:58 WBC (3.8-10.6) k/uL RBC (4.30-5.90) m/uL Hgb (13.0-17.5) gm/dL Hct (39.0-53.0) % MCHC (31.0-37.0) g/dL RDW (11.5-15.5) % Neutrophils # (1.3-7.7) k/uL Neutrophils # (Manual) (1.3-7.7) k/uL Lymphocytes # (Manual) (1.0-4.8) k/uL PT (9.0-12.0) sec INR (<1.2) ABG pH (7.35-7.45) ABG pCO2 (35-45) mmHg ABG pO2 74 L (83-108) mmHg ABG O2 Saturation (94-97) % Sodium (137-145) mmol/L Carbon Dioxide (22-30) mmol/L BUN (9-20) mg/dL Creatinine (0.66-1.25) mg/dL Glucose (74-99) mg/dL POC Glucose (mg/dL) 141 H (75-99) mg/dL Plasma Lactic Acid Juan (0.7-2.0) mmol/L Calcium (8.4-10.2) mg/dL Total Bilirubin (0.2-1.3) mg/dL AST (17-59) U/L ALT (4-49) U/L Alkaline Phosphatase (38-126) U/L Total Protein (6.3-8.2) g/dL Albumin (3.5-5.0) g/dL Microbiology - Last 24 Hours (Table) 12/31/20 03:39 Blood Culture - Preliminary Blood No Growth after 120 hours - Imaging and Cardiology Chest x-ray: report reviewed, image reviewed Assessment and Plan Assessment: 1. Acute hypoxic respiratory failure, likely from fluid overload. Reintubated on 01/04/2021 with mechanical ventilator support in place 2. Acute transaminitis, likely from hepatic congestion secondary to heart failure, LFTs trending down 3. Bilateral pleural effusions, drained right 650 mL, left 1200 mL 12/30/20 4. Acute kidney injury, possibly from obstructive uropathy 5. Coronary artery disease status post PCI to the LAD in 2005 and subsequent 4 vessel CABG on 12/16/2020 6. Previously preserved left ventricular function, mildly impaired left ventricular systolic function with EF 45-50% on current TTE 7. Chronic atrial fibrillation on Coumadin for anticoagulation with suprat herapeutic INR on admission, status post exclusion of the left atrial appendage 8. History of hypertension, currently hypotensive on norepinephrine drip 9. History of hyperlipidemia, treated 10. Diet controlled diabetes mellitus, recent hemoglobin A1c 6.2% 11. Obstructive sleep apnea on home CPAP 12. History of pituitary tumor 13. Lifetime nonsmoker with a preoperative FEV1 91% of predicted 14. History of daily wine consumption 15. 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 Metabolic acidosis, resolved 17. Urinary tract infection, urine culture positive for pseudomonas aeruginosa 18. GERD Plan: 1. Continue aspirin, and low-dose beta junito. Continue to hold statin until liver enzymes returned to normal. 2. Continue amiodarone per recommendations from cardiology. 3. Continue midodrine 10 mg by mouth 3 times a day. 4. Mechanical ventilator management per pulmonary/critical care management. Bronchodilators, per pulmonology/critical care management. 5. Lasix recommendations per nephrology. He will be started on a Lasix drip at 10 mg per hour. 6. Will monitor daily labs and chest x-rays. 7. Avoid nephrotoxins, appreciate nephrology recommendations. 8. Continue sternal precautions. Heart hugger is in place. 9. Medical management of other comorbidities per primary care service 10. Urine culture showing Pseudomonas aeruginosa, antibiotic management recommendations per pulmonary/critical care medicine. Currently on Zosyn for an tibiotic coverage. 11. Start tube feedings per dietary recommendations. 12. Keep Barrow catheter in place per urologist recommendations. Flomax has been discontinued per urology recommendations. 13. GI and DVT prophylaxis 14. Start heparin drip per low intensity protocol with no bolus. 15. Send cortisol level. 16. Maintain OG tube to low intermittent wall suction. 17. More recommendations to follow based on patient's clinical course. Time with Patient: Greater than 30
[2021-01-05] MEDS: HEPARIN SOD,PORK IN 0.45% NACL 25,000 UNIT in 0.45% NACL 1 250ML.BAG IV SCH (12:02)
[2021-01-05] MEDS: FUROSEMIDE 100 MG in SODIUM CHLORIDE 0.9% 90 ML IV SCH ×2 (12:06→19:47)
[2021-01-05] MEDS: FERROUS SULFATE 325 MG TAB PO SCH (12:37)
--- NOTE | 2021-01-05 13:33 | P.GSCN ---
History of Present Illness Consult date: 01/05/21 History of present illness: CHIEF COMPLAINT: Shortness of breath Reason for consult: Ileus HISTORY OF PRESENT ILLNESS: This is a 80-year-old male who was admitted to the hospital on 12/27/2020 with shortness of breath and evidence of acute hypoxic respiratory failure due to fluid overload and bilateral pleural effusions. Patient had bilateral thoracentesis during this admission. And has been started on a Lasix drip. He also has a history of atrial fibrillation was on Xarelto they've switched him over to a heparin drip and he is on amiodarone. Patient has been hypotensive and requiring Levophed. He also had recent CABG on 12/25/2020. He developed abdominal distention yesterday. X-ray shows evidence of probably small large bowel ileus. Computed tomography scan of abdomen shows no evidence of ileus. Last bowel movement was about 2 days ago. NG tube in place with only 200 mL greenish output . PAST MEDICAL HISTORY: Atrial Fibrillation, Coronary Artery Disease (CAD), Diabetes Mellitus, Hyperlipidemia, Hypertension, Prostate Disorder, Sleep Apnea/CPAP/BIPAP PAST SURGICAL HISTORY: CABG, heart catheterization with stent, pituitary tumor removed MEDICATIONS: See list. ALLERGIES: See list. SOCIAL HISTORY: No illicit drug use. REVIEW OF SYSTEMS: Unable to obtain. Patient intubated and sedated PHYSICAL EXAM: VITAL SIGNS: Reviewed GENERAL: Well-developed in no acute distress. HEENT: No sclera icterus. Extraocular movements grossly intact. Moist buccal mucosa. Head is atraumatic, normocephalic. No nasal drainage. ABDOMEN: Distended NEUROLOGIC: Intubated and sedated Extremities: Edema all 4 extremities LABORATORY DATA: WBC up at 17.3 hemoglobin 12.0 platelets 195 INR 1.8 Sodium 131 potassium 3.9 BUN 61 creatinine 1.73 Lactic acid 3.0 Elevated LFTs trending downwards IMAGING: Computed tomography scan abdomen and pelvis bilateral lower lobe pulmonary consolidation and pleural fluid. Cardiomegaly. Congestive heart failure is possible. Some loculated ascites fluid noted in the abdomen. No free air. No sign of mechanical bowel obstruction. Subcutaneous edema around the abdomen. ASSESSMENT: 1. Abdominal distention no ileus or bowel obstruction noted on CAT scan. Abdominal distention likely secondary to edema and fluid overload PLAN: -Agree with Lasix drip -Continue ICU management -Continue supportive care -No surgical intervention planned Thank you for this consultation Physician [employer] Team Member note has been reviewed by physician. Signing provider agrees with the documented findings, assessment, and plan of care. Past Medical History Past Medical History: Atrial Fibrillation, Coronary Artery Disease (CAD), Diabetes Mellitus, Hyperlipidemia, Hypertension, Prostate Disorder, Sleep Apnea/CPAP/BIPAP History of Any Multi-Drug Resistant Organisms: None Reported Past Surgical History: Coronary Bypass/CABG, Heart Catheterization With Stent Additional Past Surgical History / Comment(s): pitutary tumor removed; PCI to the LAD in 2005; 4 vessel CABG 12/16/2020 Past Anesthesia/Blood Transfusion Reactions: No Reported Reaction Additional Past Anesthesia/Blood Transfusion Reaction / Comm: no hx blood transfusion Date of Last Stent Placement:: 2005 Smoking Status: Never smoker - Past Family History Father Family Medical History: Congestive Heart Failure (CHF), Coronary Artery Disease (CAD), Myocardial Infarction (DC) Additional Family Medical History / Comment(s): Premature coronary artery disease, CABG Mother Additional Family Medical History / Comment(s): Depression, committed suicide Medications and Allergies Home Medications Medication Instructions Recorded Confirmed Type Ascorbic Acid [Vitamin C] 500 mg PO DAILY@1700 04/29/15 12/27/20 History Cholecalciferol [Vitamin D3 (25 25 mcg PO DAILY@0 04/29/15 12/27/20 History Mcg = 1000 Iu)] Esomeprazole Magnesium [NexIUM] 40 mg PO DAILY@0600 04/29/15 12/27/20 History Warfarin [Coumadin] 2.5 mg PO DIRECTED 04/29/15 12/27/20 History Calcium Carbonate [Calcium] 300 mg PO DAILY@1700 04/30/16 12/27/20 History Diltiazem Cd [Cardizem CD] 120 mg PO DAILY@0800 06/10/20 12/27/20 History Latanoprost/Pf [Latanoprost 0.005% 1 drop BOTH EYES HS@209906/10/20 12/27/20 History Eye Drop] Montelukast [Singulair] 10 mg PO HS@209906/10/20 12/27/20 History Warfarin [Coumadin] 5 mg PO DIRECTED 06/10/20 12/27/20 History Acetaminophen Tab [Tylenol] 650 mg PO Q4HR PRN tab 12/25/20 12/27/20 Rx lisinopriL [Zestril] 5 mg PO DAILY@1200 tab 12/25/20 12/27/20 Rx Aspirin 81 mg PO DAILY@1700 12/27/20 12/27/20 History Atorvastatin [Lipitor] 40 mg PO HS@2100 12/27/20 12/27/20 History INSULIN ASPART (NovoLOG) [NovoLOG See Protocol SQ ACHS 12/27/20 12/27/20 History (formulary)] Ipratropium-Albuterol Nebulize 3 ml INHALATION RT-Q2H PRN 12/27/20 12/27/20 History [Duoneb 0.5 mg-3 mg/3 ml Soln] Ipratropium-Albuterol Nebulize 3 ml INHALATION RT-Q6H 12/27/20 12/27/20 History [Duoneb 0.5 mg-3 mg/3 ml Soln] Magnesium Hydroxide [Milk of 7,200 mg PO DAILY PRN 12/27/20 12/27/20 History Magnesia Concentrate] Metoprolol Tartrate [Lopressor] 75 mg PO BID@0800,1700 12/27/20 12/27/20 History Midodrine HCl 5 mg PO TID@0800,1200,1700 12/27/20 12/27/20 History Na Phos,M-B/Na Phos,Di-Ba [Fleet 133 ml RECTAL DAILY PRN 12/27/20 12/27/20 History Adult] Sennosides-Docusate Sodium 2 tab PO HS PRN 12/27/20 12/27/20 History [Senokot-S] Tamsulosin [Flomax] 0.4 mg PO DAILY@0800 12/27/20 12/27/20 History bisacodyL [Dulcolax] 10 mg RECTAL DAILY PRN 12/27/20 12/27/20 History Allergies Allergy/AdvReac Type Severity Reaction Status Date / Time No Known Allergies Allergy Verified 12/27/20 19:11 Surgical - Exam Vital Signs Temp Pulse Resp BP Pulse Ox 97.8 F 73 20 107/59 93 L 12/27/20 17:07 12/27/20 17:07 12/27/20 17:07 12/27/20 17:07 12/27/20 17:07 Results - Labs 01/05/21 04:52 01/05/21 04:52 Abnormal Lab Results - Last 24 Hours (Table) 01/04/21 01/04/21 01/04/21 Range/Units 16:18 17:55 19:52 WBC (3.8-10.6) k/uL RBC (4.30-5.90) m/uL Hgb (13.0-17.5) gm/dL Hct (39.0-53.0) % MCHC (31.0-37.0) g/dL RDW (11.5-15.5) % Neutrophils # (1.3-7.7) k/uL Neutrophils # (Manual) (1.3-7.7) k/uL Lymphocytes # (Manual) (1.0-4.8) k/uL PT (9.0-12.0) sec INR (<1.2) ABG pH (7.35-7.45) ABG pCO2 (35-45) mmHg ABG pO2 (83-108) mmHg ABG O2 Saturation (94-97) % Sodium 130 L (137-145) mmol/L Carbon Dioxide 21 L (22-30) mmol/L BUN 61 H (9-20) mg/dL Creatinine 1.73 H (0.66-1.25) mg/dL Glucose 161 H (74-99) mg/dL POC Glucose (mg/dL) 193 H 203 H (75-99) mg/dL Plasma Lactic Acid Juan (0.7-2.0) mmol/L Calcium 7.8 L (8.4-10.2) mg/dL Total Bilirubin 2.1 H (0.2-1.3) mg/dL AST 121 H (17-59) U/L ALT 365 H (4-49) U/L Alkaline Phosphatase 208 H (38-126) U/L Total Protein 5.1 L (6.3-8.2) g/dL Albumin 2.8 L (3.5-5.0) g/dL 01/04/21 01/04/21 01/04/21 Range/Units 19:52 19:52 19:52 WBC (3.8-10.6) k/uL RBC 3.56 L (4.30-5.90) m/uL Hgb 10.7 L (13.0-17.5) gm/dL Hct 35.5 L (39.0-53.0) % MCHC 30.1 L (31.0-37.0) g/dL RDW 16.2 H (11.5-15.5) % Neutrophils # 8.5 H (1.3-7.7) k/uL Neutrophils # (Manual) (1.3-7.7) k/uL Lymphocytes # (Manual) (1.0-4.8) k/uL PT 18.3 H (9.0-12.0) sec INR 1.9 H (<1.2) ABG pH (7.35-7.45) ABG pCO2 (35-45) mmHg ABG pO2 (83-108) mmHg ABG O2 Saturation (94-97) % Sodium (137-145) mmol/L Carbon Dioxide (22-30) mmol/L BUN (9-20) mg/dL Creatinine (0.66-1.25) mg/dL Glucose (74-99) mg/dL POC Glucose (mg/dL) (75-99) mg/dL Plasma Lactic Acid Juan 4.7 H* (0.7-2.0) mmol/L Calcium (8.4-10.2) mg/dL Total Bilirubin (0.2-1.3) mg/dL AST (17-59) U/L ALT (4-49) U/L Alkaline Phosphatase (38-126) U/L Total Protein (6.3-8.2) g/dL Albumin (3.5-5.0) g/dL 01/04/21 01/04/21 01/04/21 Range/Units 21:07 22:51 23:49 WBC (3.8-10.6) k/uL RBC (4.30-5.90) m/uL Hgb (13.0-17.5) gm/dL Hct (39.0-53.0) % MCHC (31.0-37.0) g/dL RDW (11.5-15.5) % Neutrophils # (1.3-7.7) k/uL Neutrophils # (Manual) (1.3-7.7) k/uL Lymphocytes # (Manual) (1.0-4.8) k/uL PT (9.0-12.0) sec INR (<1.2) ABG pH 7.52 H (7.35-7.45) ABG pCO2 28 L (35-45) mmHg ABG pO2 252 H (83-108) mmHg ABG O2 Saturation 99.9 H (94-97) % Sodium (137-145) mmol/L Carbon Dioxide (22-30) mmol/L BUN (9-20) mg/dL Creatinine (0.66-1.25) mg/dL Glucose (74-99) mg/dL POC Glucose (mg/dL) 162 H (75-99) mg/dL Plasma Lactic Acid Juan 3.1 H* (0.7-2.0) mmol/L Calcium (8.4-10.2) mg/dL Total Bilirubin (0.2-1.3) mg/dL AST (17-59) U/L ALT (4-49) U/L Alkaline Phosphatase (38-126) U/L Total Protein (6.3-8.2) g/dL Albumin (3.5-5.0) g/dL 01/05/21 01/05/21 01/05/21 Range/Units 00:52 04:52 04:52 WBC 17.3 H (3.8-10.6) k/uL RBC 3.99 L (4.30-5.90) m/uL Hgb 12.0 L (13.0-17.5) gm/dL Hct (39.0-53.0) % MCHC 30.2 L (31.0-37.0) g/dL RDW 16.3 H (11.5-15.5) % Neutrophils # (1.3-7.7) k/uL Neutrophils # (Manual) 16.40 H (1.3-7.7) k/uL Lymphocytes # (Manual) 0.69 L (1.0-4.8) k/uL PT (9.0-12.0) sec INR (<1.2) ABG pH (7.35-7.45) ABG pCO2 (35-45) mmHg ABG pO2 58 L* (83-108) mmHg ABG O2 Saturation 86.0 L (94-97) % Sodium 131 L (137-145) mmol/L Carbon Dioxide 20 L (22-30) mmol/L BUN 61 H (9-20) mg/dL Creatinine 1.73 H (0.66-1.25) mg/dL Glucose 126 H (74-99) mg/dL POC Glucose (mg/dL) (75-99) mg/dL Plasma Lactic Acid Juan (0.7-2.0) mmol/L Calcium 7.9 L (8.4-10.2) mg/dL Total Bilirubin 2.7 H (0.2-1.3) mg/dL AST 89 H (17-59) U/L ALT 300 H (4-49) U/L Alkaline Phosphatase 201 H (38-126) U/L Total Protein 4.9 L (6.3-8.2) g/dL Albumin 2.5 L (3.5-5.0) g/dL 01/05/21 01/05/21 01/05/21 Range/Units 04:52 04:52 05:27 WBC (3.8-10.6) k/uL RBC (4.30-5.90) m/uL Hgb (13.0-17.5) gm/dL Hct (39.0-53.0) % MCHC (31.0-37.0) g/dL RDW (11.5-15.5) % Neutrophils # (1.3-7.7) k/uL Neutrophils # (Manual) (1.3-7.7) k/uL Lymphocytes # (Manual) (1.0-4.8) k/uL PT 17.5 H (9.0-12.0) sec INR 1.8 H (<1.2) ABG pH (7.35-7.45) ABG pCO2 (35-45) mmHg ABG pO2 74 L (83-108) mmHg ABG O2 Saturation (94-97) % Sodium (137-145) mmol/L Carbon Dioxide (22-30) mmol/L BUN (9-20) mg/dL Creatinine (0.66-1.25) mg/dL Glucose (74-99) mg/dL POC Glucose (mg/dL) (75-99) mg/dL Plasma Lactic Acid Juan 2.6 H* (0.7-2.0) mmol/L Calcium (8.4-10.2) mg/dL Total Bilirubin (0.2-1.3) mg/dL AST (17-59) U/L ALT (4-49) U/L Alkaline Phosphatase (38-126) U/L Total Protein (6.3-8.2) g/dL Albumin (3.5-5.0) g/dL 01/05/21 01/05/21 01/05/21 Range/Units 05:58 08:57 11:42 WBC (3.8-10.6) k/uL RBC (4.30-5.90) m/uL Hgb (13.0-17.5) gm/dL Hct (39.0-53.0) % MCHC (31.0-37.0) g/dL RDW (11.5-15.5) % Neutrophils # (1.3-7.7) k/uL Neutrophils # (Manual) (1.3-7.7) k/uL Lymphocytes # (Manual) (1.0-4.8) k/uL PT (9.0-12.0) sec INR (<1.2) ABG pH (7.35-7.45) ABG pCO2 (35-45) mmHg ABG pO2 (83-108) mmHg ABG O2 Saturation (94-97) % Sodium (137-145) mmol/L Carbon Dioxide (22-30) mmol/L BUN (9-20) mg/dL Creatinine (0.66-1.25) mg/dL Glucose (74-99) mg/dL POC Glucose (mg/dL) 141 H 125 H (75-99) mg/dL Plasma Lactic Acid Juan 3.0 H* (0.7-2.0) mmol/L Calcium (8.4-10.2) mg/dL Total Bilirubin (0.2-1.3) mg/dL AST (17-59) U/L ALT (4-49) U/L Alkaline Phosphatase (38-126) U/L Total Protein (6.3-8.2) g/dL Albumin (3.5-5.0) g/dL Microbiology - Last 24 Hours (Table) 01/04/21 21:08 Sputum Culture - Preliminary Sputum 12/31/20 03:39 Blood Culture - Preliminary Blood No Growth after 120 hours Diabetes panel 01/04/21 01/05/21 Range/Units 19:52 04:52 Sodium 130 L 131 L (137-145) mmol/L Potassium 4.2 3.9 (3.5-5.1) mmol/L Chloride 98 99 (98-107) mmol/L Carbon Dioxide 21 L 20 L (22-30) mmol/L BUN 61 H 61 H (9-20) mg/dL Creatinine 1.73 H 1.73 H (0.66-1.25) mg/dL Glucose 161 H 126 H (74-99) mg/dL Calcium 7.8 L 7.9 L (8.4-10.2) mg/dL AST 121 H 89 H (17-59) U/L ALT 365 H 300 H (4-49) U/L Alkaline Phosphatase 208 H 201 H (38-126) U/L Total Protein 5.1 L 4.9 L (6.3-8.2) g/dL Albumin 2.8 L 2.5 L (3.5-5.0) g/dL Calcium panel 01/04/21 01/05/21 Range/Units 19:52 04:52 Calcium 7.8 L 7.9 L (8.4-10.2) mg/dL Albumin 2.8 L 2.5 L (3.5-5.0) g/dL Pituitary panel 01/04/21 01/05/21 Range/Units 19:52 04:52 Sodium 130 L 131 L (137-145) mmol/L Potassium 4.2 3.9 (3.5-5.1) mmol/L Chloride 98 99 (98-107) mmol/L Carbon Dioxide 21 L 20 L (22-30) mmol/L BUN 61 H 61 H (9-20) mg/dL Creatinine 1.73 H 1.73 H (0.66-1.25) mg/dL Glucose 161 H 126 H (74-99) mg/dL Calcium 7.8 L 7.9 L (8.4-10.2) mg/dL Adrenal panel 01/04/21 01/05/21 Range/Units 19:52 04:52 Sodium 130 L 131 L (137-145) mmol/L Potassium 4.2 3.9 (3.5-5.1) mmol/L Chloride 98 99 (98-107) mmol/L Carbon Dioxide 21 L 20 L (22-30) mmol/L BUN 61 H 61 H (9-20) mg/dL Creatinine 1.73 H 1.73 H (0.66-1.25) mg/dL Glucose 161 H 126 H (74-99) mg/dL Calcium 7.8 L 7.9 L (8.4-10.2) mg/dL Total Bilirubin 2.1 H 2.7 H (0.2-1.3) mg/dL AST 121 H 89 H (17-59) U/L ALT 365 H 300 H (4-49) U/L Alkaline Phosphatase 208 H 201 H (38-126) U/L Total Protein 5.1 L 4.9 L (6.3-8.2) g/dL Albumin 2.8 L 2.5 L (3.5-5.0) g/dL
[2021-01-05] MEDS ORDERED: LIDOCAINE 1% INJ 10MG/ML (20 ML MDV) ONE (13:52)
[2021-01-05] MEDS ORDERED: LIDOCAINE 1% INJ 10MG/ML (20 ML MDV) SQ ONE (14:22)
--- NOTE | 2021-01-05 14:35 | P.PN ---
Subjective Progress Note Date: 01/05/21 Principal diagnosis: Acute hypoxic respiratory failure, secondary to acute systolic congestive heart failure and bilateral pleural effusions. 01/04/2021, the patient is struggling. Despite the fact that he is on room air oxygen, he seems to be uncomfortable and he keeps on 1 set up on a recliner. His oral intake is minimal. He has no stamina. He seems to be very much disco uraged and he feels at times that he wants to quit the treatment. In terms of his pulmonary status, he is on room air oxygen, I reviewed the chest x-ray from today and there is a moderate-sized left-sided pleural effusion. Right-sided pleural effusion has essentially recovered. Note that the patient has undergone bilateral thoracentesis. He continues to have signs of fluid overload with fluid in his upper and lower extremities with some fluid weeping from his skin in lower extremities. He is receiving Lasix 40 mg IV on a daily basis. Overall fluid balance over the past 24 hours has been in the order of negative to 80 mL. He continues to have episodes of atrial fibrillation with rapid ventricular response. Along with A. fib RVR, he became hypotensive and his urine output dropped. He was given IV albumin. He was given a bolus of 500 mL yesterday. He was started on amiodarone drip loading, initially on 1 mg per minute and later on 0.5 mg per minute. His current heart rate is around 110. His most recent blood pressure is 99/61. His serum albumin is at 2.9. INR is at 2.0. Creatinine is at 1.5 with a BUN of 59, sodium is at 132, serum bicarbonate 20. Oral intake is quite diminished at this point in time. His echocardiogram was showing a preserved LV function. Urology evaluated the patient. The recommendation was to keep in the Barrow catheter. He is completing a 5 day course of IV cefepime regarding pseudomonas aeruginosa in the urine with possible infection. He is afebrile for now. Surgical wound site is dry clean and intact. His last bowel movement was 2 days ago. Patient was reevaluated today on 01/05/21, patient deteriorated last night, and he was intubated and placed on mechanical ventilation. He is presently on FiO2 of 60% tidal volume of 400 assist control rate of 22 and PEEP of 10. ABG showed a pO2 of 74 pCO2 of 39 pH of 7.39. Patient is sedated, he is on propofol at 30 mcg/kg/m, hypotensive requiring norepinephrine at 0.25 mcg/kg/m, is also on amiodarone drip at 1 mg/m, and IV fluid at KVO. Patient is not making much urine, does not seem to be making any urine output with Lasix IV push, hence I recommended starting the patient on Lasix at 10 mg per hour drip. Chest x-ray is consistent with congestive heart failure, patient is extremely edematous, he has abdominal distention, abdominal wall edema, and significant bipedal edema. Patient will be pancultured, he had a lactic acid of 3.0 earlier today. Cortisol level is 55. He believes he got is 17.3 hemoglobin is 12. Electrolytes are relatively normal except for bicarb of 20 BUN is 61 creatinine 1.73. Liver enzymes are a bit elevated but they seem to be improving over the last few days. Patient again is now on Lasix drip at 10 mg per hour, he is on Zosyn empirically. She is also on GI prophylaxis, and on bronchodilators. He was on Coumadin with INR of 1.8 today, and I would likely recommend heparin, patient will eventually need a PICC line placed tomorrow, today I went ahead and placed on arterial line because of his profound hypotension requiring relatively high dose of norepinephrine. Objective - Vital Signs Vital signs: Vital Signs Temp 97.7 F 01/05/21 12:00 Pulse 93 01/05/21 14:00 Resp 22 01/05/21 14:00 BP 72/54 01/05/21 14:00 Pulse Ox 100 01/05/21 14:00 Intake & Output 01/04/21 01/05/21 01/05/21 18:59 06:59 18:59 Intake Total 870.610 1744.720 80 Output Total 655 470 340 Balance -114.663 818.720 -260 Weight 99.6 kg 99.6 kg Intake: IV 100 110 80 .9 @ 10mL/hr 110 80 Cefepime 2 gm In Sodium 100 Chloride 0.9% 100 ml @ 25 mls/hr IVPB Q12HR [facility] Rx #:[id number] Intake, IV Titration 845.851 8411.720 Amount Amiodarone 360 mg In 400 Dextrose 5% in Water 200 ml @ 1 MG/MIN 33.333 mls/ hr IV .Q6H [facility] Rx#: [id number] Amiodarone 450 mg In 203.337 Dextrose 5% in Water 250 ml @ 0.5 MG/MIN 16.667 mls/hr IV .Q15H [facility] Rx#: [id number] Norepinephrine 4 mg In 322.942 Sodium Chloride 0.9% 250 ml @ 0.05 MCG/KG/MIN 18. 802 mls/hr IV .[id number] [facility] Rx#:[id number] Piperacillin-Tazobactam 3 200 .375 gm In Sodium Chloride 0.9% 100 ml @ 25 mls/hr IVPB Q8H [facility] Rx#: [id number] propofoL 1,000 mg In 255.778 Empty Bag 1 bag @ Titrate IV .Q0M [facility] Rx#: [id number] Tube Feeding 237 Output: Urine 655 470 340 Other: Voiding Method Indwelling Catheter Indwelling Catheter Indwelling Catheter ABP, PAP, CO, CI - Last Documented Arterial Blood Pressure 102/64 - Exam Physical Exam: Revealed 80-year-old white male intubated and mechanically ventilated. Sedated on propofol. Head: Atraumatic normocephalic. HEENT:[Neck is supple.] [No neck masses.] [No thyromegaly.] [No JVD.] End otracheal tube and orogastric tube are intact. Chest: [Symmetrical chest expansion crackles at the bases bilaterally. No rhonchi and no wheezes. Cardiac Exam: Irregular irregular rhythm, 2/6 systolic murmur thought the precordium. Abdomen: Lightly distended, significant abdominal wall edema is noted, diminished bowel sounds.] Extremities: 3+ bipedal edema, no clubbing, no cyanosis. Neurological Exam: [Cannot be assessed, patient is sedated on propofol. Psychiatric: Could not be assessed. Skin: No rashes except the patient has areas of ecchymosis, and abrasions especially in the left forearm area. - Labs CBC & Chem 7: 01/05/21 04:52 01/05/21 04:52 Labs: Abnormal Lab Results - Last 24 Hours (Table) 01/04/21 01/04/21 01/04/21 Range/Units 16:18 17:55 19:52 WBC (3.8-10.6) k/uL RBC (4.30-5.90) m/uL Hgb (13.0-17.5) gm/dL Hct (39.0-53.0) % MCHC (31.0-37.0) g/dL RDW (11.5-15.5) % Neutrophils # (1.3-7.7) k/uL Neutrophils # (Manual) (1.3-7.7) k/uL Lymphocytes # (Manual) (1.0-4.8) k/uL PT (9.0-12.0) sec INR (<1.2) ABG pH (7.35-7.45) ABG pCO2 (35-45) mmHg ABG pO2 (83-108) mmHg ABG O2 Saturation (94-97) % Sodium 130 L (137-145) mmol/L Carbon Dioxide 21 L (22-30) mmol/L BUN 61 H (9-20) mg/dL Creatinine 1.73 H (0.66-1.25) mg/dL Glucose 161 H (74-99) mg/dL POC Glucose (mg/dL) 193 H 203 H (75-99) mg/dL Plasma Lactic Acid Juan (0.7-2.0) mmol/L Calcium 7.8 L (8.4-10.2) mg/dL Total Bilirubin 2.1 H (0.2-1.3) mg/dL AST 121 H (17-59) U/L ALT 365 H (4-49) U/L Alkaline Phosphatase 208 H (38-126) U/L Total Protein 5.1 L (6.3-8.2) g/dL Albumin 2.8 L (3.5-5.0) g/dL 01/04/21 01/04/21 01/04/21 Range/Units 19:52 19:52 19:52 WBC (3.8-10.6) k/uL RBC 3.56 L (4.30-5.90) m/uL Hgb 10.7 L (13.0-17.5) gm/dL Hct 35.5 L (39.0-53.0) % MCHC 30.1 L (31.0-37.0) g/dL RDW 16.2 H (11.5-15.5) % Neutrophils # 8.5 H (1.3-7.7) k/uL Neutrophils # (Manual) (1.3-7.7) k/uL Lymphocytes # (Manual) (1.0-4.8) k/uL PT 18.3 H (9.0-12.0) sec INR 1.9 H (<1.2) ABG pH (7.35-7.45) ABG pCO2 (35-45) mmHg ABG pO2 (83-108) mmHg ABG O2 Saturation (94-97) % Sodium (137-145) mmol/L Carbon Dioxide (22-30) mmol/L BUN (9-20) mg/dL Creatinine (0.66-1.25) mg/dL Glucose (74-99) mg/dL POC Glucose (mg/dL) (75-99) mg/dL Plasma Lactic Acid Juan 4.7 H* (0.7-2.0) mmol/L Calcium (8.4-10.2) mg/dL Total Bilirubin (0.2-1.3) mg/dL AST (17-59) U/L ALT (4-49) U/L Alkaline Phosphatase (38-126) U/L Total Protein (6.3-8.2) g/dL Albumin (3.5-5.0) g/dL 01/04/21 01/04/21 01/04/21 Range/Units 21:07 22:51 23:49 WBC (3.8-10.6) k/uL RBC (4.30-5.90) m/uL Hgb (13.0-17.5) gm/dL Hct (39.0-53.0) % MCHC (31.0-37.0) g/dL RDW (11.5-15.5) % Neutrophils # (1.3-7.7) k/uL Neutrophils # (Manual) (1.3-7.7) k/uL Lymphocytes # (Manual) (1.0-4.8) k/uL PT (9.0-12.0) sec INR (<1.2) ABG pH 7.52 H (7.35-7.45) ABG pCO2 28 L (35-45) mmHg ABG pO2 252 H (83-108) mmHg ABG O2 Saturation 99.9 H (94-97) % Sodium (137-145) mmol/L Carbon Dioxide (22-30) mmol/L BUN (9-20) mg/dL Creatinine (0.66-1.25) mg/dL Glucose (74-99) mg/dL POC Glucose (mg/dL) 162 H (75-99) mg/dL Plasma Lactic Acid Juan 3.1 H* (0.7-2.0) mmol/L Calcium (8.4-10.2) mg/dL Total Bilirubin (0.2-1.3) mg/dL AST (17-59) U/L ALT (4-49) U/L Alkaline Phosphatase (38-126) U/L Total Protein (6.3-8.2) g/dL Albumin (3.5-5.0) g/dL 01/05/21 01/05/21 01/05/21 Range/Units 00:52 04:52 04:52 WBC 17.3 H (3.8-10.6) k/uL RBC 3.99 L (4.30-5.90) m/uL Hgb 12.0 L (13.0-17.5) gm/dL Hct (39.0-53.0) % MCHC 30.2 L (31.0-37.0) g/dL RDW 16.3 H (11.5-15.5) % Neutrophils # (1.3-7.7) k/uL Neutrophils # (Manual) 16.40 H (1.3-7.7) k/uL Lymphocytes # (Manual) 0.69 L (1.0-4.8) k/uL PT (9.0-12.0) sec INR (<1.2) ABG pH (7.35-7.45) ABG pCO2 (35-45) mmHg ABG pO2 58 L* (83-108) mmHg ABG O2 Saturation 86.0 L (94-97) % Sodium 131 L (137-145) mmol/L Carbon Dioxide 20 L (22-30) mmol/L BUN 61 H (9-20) mg/dL Creatinine 1.73 H (0.66-1.25) mg/dL Glucose 126 H (74-99) mg/dL POC Glucose (mg/dL) (75-99) mg/dL Plasma Lactic Acid Juan (0.7-2.0) mmol/L Calcium 7.9 L (8.4-10.2) mg/dL Total Bilirubin 2.7 H (0.2-1.3) mg/dL AST 89 H (17-59) U/L ALT 300 H (4-49) U/L Alkaline Phosphatase 201 H (38-126) U/L Total Protein 4.9 L (6.3-8.2) g/dL Albumin 2.5 L (3.5-5.0) g/dL 01/05/21 01/05/21 01/05/21 Range/Units 04:52 04:52 05:27 WBC (3.8-10.6) k/uL RBC (4.30-5.90) m/uL Hgb (13.0-17.5) gm/dL Hct (39.0-53.0) % MCHC (31.0-37.0) g/dL RDW (11.5-15.5) % Neutrophils # (1.3-7.7) k/uL Neutrophils # (Manual) (1.3-7.7) k/uL Lymphocytes # (Manual) (1.0-4.8) k/uL PT 17.5 H (9.0-12.0) sec INR 1.8 H (<1.2) ABG pH (7.35-7.45) ABG pCO2 (35-45) mmHg ABG pO2 74 L (83-108) mmHg ABG O2 Saturation (94-97) % Sodium (137-145) mmol/L Carbon Dioxide (22-30) mmol/L BUN (9-20) mg/dL Creatinine (0.66-1.25) mg/dL Glucose (74-99) mg/dL POC Glucose (mg/dL) (75-99) mg/dL Plasma Lactic Acid Juan 2.6 H* (0.7-2.0) mmol/L Calcium (8.4-10.2) mg/dL Total Bilirubin (0.2-1.3) mg/dL AST (17-59) U/L ALT (4-49) U/L Alkaline Phosphatase (38-126) U/L Total Protein (6.3-8.2) g/dL Albumin (3.5-5.0) g/dL 01/05/21 01/05/21 01/05/21 Range/Units 05:58 08:57 11:42 WBC (3.8-10.6) k/uL RBC (4.30-5.90) m/uL Hgb (13.0-17.5) gm/dL Hct (39.0-53.0) % MCHC (31.0-37.0) g/dL RDW (11.5-15.5) % Neutrophils # (1.3-7.7) k/uL Neutrophils # (Manual) (1.3-7.7) k/uL Lymphocytes # (Manual) (1.0-4.8) k/uL PT (9.0-12.0) sec INR (<1.2) ABG pH (7.35-7.45) ABG pCO2 (35-45) mmHg ABG pO2 (83-108) mmHg ABG O2 Saturation (94-97) % Sodium (137-145) mmol/L Carbon Dioxide (22-30) mmol/L BUN (9-20) mg/dL Creatinine (0.66-1.25) mg/dL Glucose (74-99) mg/dL POC Glucose (mg/dL) 141 H 125 H (75-99) mg/dL Plasma Lactic Acid Juan 3.0 H* (0.7-2.0) mmol/L Calcium (8.4-10.2) mg/dL Total Bilirubin (0.2-1.3) mg/dL AST (17-59) U/L ALT (4-49) U/L Alkaline Phosphatase (38-126) U/L Total Protein (6.3-8.2) g/dL Albumin (3.5-5.0) g/dL Microbiology - Last 24 Hours (Table) 01/04/21 21:08 Sputum Culture - Preliminary Sputum 12/31/20 03:39 Blood Culture - Preliminary Blood No Growth after 120 hours Assessment and Plan Assessment: Impression: Acute hypoxic respiratory failure secondary to acute on chronic systolic congestive heart failure with bilateral pleural effusions Coronary artery disease and recent 4 vessel bypass grafting discharged from the hospital on 12/25, echocardiogram showed mildly impaired left ventricle with ejection fraction of 45% Chronic atrial fibrillation. Acute kidney injury possible cardiorenal syndrome. Type 2 diabetes. Dyslipidemia. Hypotension requiring pressors could be secondary to hypoperfusion and LV dysfunction could also be related to sepsis although felt to be less likely. Cultures are pending and the patient is empirically on antibiotics. Urinary cultures are positive for Pseudomonas. Elevated liver enzymes, could be hypoperfusional in nature. Acute urinary tract infection secondary to pseudomonas aeruginosa. Extensive edema, patient will be placed on Lasix drip. Profound weakness and debility Recommendation: Continue ventilatory support. Continue pressors. Start Lasix infusion at 10 mg per hour. Continue anticoagulation therapy Patient is being monitored by nephrology. May eventually require replacement therapy. Continue cefepime. Nutritional support. Enteral feeding. GI DVT prophylaxis. Discussed with family his overall poor condition, and consider DO NOT RESUSCITATE CODE STATUS based on his overall prognostic picture and debility. Patient is critically ill. We will continue to follow. Critical care time is over 30 minutes not including time spent on procedures. Time with Patient: Greater than 30
--- NOTE | 2021-01-05 14:49 | XR ---
EXAMINATION TYPE: XR chest 1V confirm line [facility] DATE OF EXAM: 01/05/2021 COMPARISON: 01/05/2021 INDICATION: PICC line placement TECHNIQUE: Single frontal view of the chest is obtained. FINDINGS: The heart size is moderately prominent. The pulmonary vasculature is prominent. Patchy infiltrates are present bilaterally. Small left pleural effusion is likely present. Endotracheal tube tip is above the cassie. Right-sided PICC line enters with the tip in the superior vena cava region. Nasogastric tube transverses the thorax. IMPRESSION: 1. Patchy bilateral lung infiltrates. Small left pleural effusion may be present. 2. Multiple lines and catheters discussed above. 3. PICC line entering on the right in the superior vena cava region.
--- NOTE | 2021-01-05 15:07 | IR ---
EXAMINATION EXAMINATION TYPE: IR cvc insert >=5 years DATE OF EXAM: 01/05/2021 COMPARISON: NONE HISTORY: Needs long-term intravenous access for therapy, infection FINDINGS: Maximal barrier technique was utilized. Hand hygiene obtained with soap and water and alco hol-based hand rub. The skin overlying the right basilic vein was localized with ultrasound and noted to be compressible and patent by ultrasound. An ultrasound image was obtained and submitted on jesi ent's chart. Sterile technique utilized with the ultrasound machine. The skin overlying was prepped a nd draped and Lidocaine used for local anesthesia. A skin ramo was made with a scalpel. Access was gained to the vein under direct ultrasound guidance with a 21-gauge needle and a 0.018 inch wire was advanced. Access site was dilated with a peel-away sheath and the catheter tailored to length. Cath eter advanced centrally and a post procedure chest x-ray verified placement with tip at the superior vena cava. Catheter was fixed to the skin and a sterile dressing placed. Hemostasis achieved and th e catheter was aspirated and flushed with sterile saline. The patient remained in stable condition. IMPRESSION: STATUS POST ULTRASOUND GUIDED PICC LINE PLACEMENT, READY FOR USE. THIS PROCEDURE WAS PER FORMED BY THE UNDERSIGNED.
--- NOTE | 2021-01-05 15:30 | OP ---
OPERATIVE REPORT OPERATIVE REPORT: Placement of right radial arterial line. PREOPERATIVE DIAGNOSIS: Profound hypotension; patient is requiring high dose of norepinephrine. Arterial line was needed on an urgent basis. POSTOPERATIVE DIAGNOSIS: Hypotension. ANESTHESIA USED: None deployed. PROCEDURE DESCRIPTION: The right wrist was prepared in a sterile fashion and drapes were applied. The right radial artery was palpable by Doppler, and the right radial artery was cannulated easily using Doppler/ultrasound. A guidewire was placed after cannulation of the right radial arterial line. Then a Cook's catheter was inserted over the guidewire, and the guidewire was removed. Good blood flow, good waveform noted. Line was secured using 3.0 silk sutures. No evidence of any complications. MMODL / IJN: [id number] /
[2021-01-05 17:55] LABS: Glucose,Whole Blood 124 mg/dL (75-99)
--- NOTE | 2021-01-05 17:58 | US ---
EXAMINATION TYPE: US chest DATE OF EXAM: 01/05/2021 COMPARISON: NONE CLINICAL HISTORY: dyspnea, chf. TECHNIQUE: Targeted ultrasound of the posterior lower bilateral hemithoraces EXAM MEASUREMENTS: Right Pleural Effusion pocket size: 3.6 cm Left Pleural Effusion pocket size: 8.0 cm Left skin surface to fluid distance: 3.5 cm Right side NOT marked for possible thoracentesis outside the dept. Left side marked for possible thoracentesis outside the dept. Pulmonologists are able to review the images in the patient?s EMR. IMPRESSIONS: Bilateral pleural effusions are demonstrated as above.
[2021-01-05] MEDS: CALCIUM CARBONATE 500 MG CHEWABLE PO SCH (18:19)
[2021-01-05] MEDS: CHOLECALCIFEROL 25 MCG (1000 IU) TABLET PO SCH (18:20)
[2021-01-05] MEDS: ASCORBIC ACID 500 MG TAB PO SCH (18:20)
[2021-01-05] MEDS: ASPIRIN 81 MG PO SCH (18:20)
[2021-01-05 18:37] LABS: ABG Base Excess -3.9 mmol/L; ABG HCO3 20 mmol/L (21-25); ABG Oxygen Saturation 98.6 % (94-97); ABG PCO2 33 mmHg (35-45); ABG PO2 101 mmHg (83-108); Allen Test Performed? Yes
[2021-01-05] MEDS: SENNOSIDES-DOCUSATE SODIUM 1 EACH TAB PO SCH (19:50)
[2021-01-05] MEDS: MONTELUKAST 10 MG TAB PO SCH (19:50)
[2021-01-05] MEDS: LATANOPROST 0.005% OPHTH DROPS 2.5 ML BTL BOTH EYES SCH (19:51)
[2021-01-05] MEDS: NOREPINEPHRINE 8 MG in SODIUM CHLORIDE 0.9% 250 ML IV SCH (21:36)
[2021-01-06 00:01] LABS: Glucose,Whole Blood 226 mg/dL (75-99)
[2021-01-06] MEDS: INSULIN ASPART (NovoLOG) 100 UNIT/ML VIAL SQ SCH ×5 (01:09→23:45)
[2021-01-06] MEDS: NOREPINEPHRINE 8 MG in SODIUM CHLORIDE 0.9% 250 ML IV SCH ×4 (01:10→22:36)
[2021-01-06] MEDS: FUROSEMIDE 100 MG in SODIUM CHLORIDE 0.9% 90 ML IV SCH ×2 (04:07→15:16)
[2021-01-06] MEDS: AMIODARONE 360 MG in DEXTROSE 5% IN WATER 200 ML IV SCH ×8 (04:07→22:39)
[2021-01-06 04:09] LABS: Anisocytosis Slight; HCT 34.9 % (39.0-53.0); HGB 10.8 gm/dL (13.0-17.5); Hypochromasia Marked; MCH 29.9 pg (25.0-35.0); MCHC 30.8 g/dL (31.0-37.0); MCV 96.9 fL (80.0-100.0); Macrocytosis Slight; Mean Platelet Volume 8.4; Platelet Count 189 k/uL (150-450); Poikilocytosis Marked; RBC 3.61 m/uL (4.30-5.90); RDW 16.2 % (11.5-15.5); WBC 29.6 k/uL (3.8-10.6)
[2021-01-06] MEDS: PIPERACILLIN-TAZOBACTAM 3.375 GM in SODIUM CHLORIDE 0.9% 100 ML IVPB SCH ×3 (04:38→20:47)
[2021-01-06 05:10] LABS: ABG Base Excess -2.9 mmol/L; ABG HCO3 20 mmol/L (21-25); ABG Oxygen Saturation 98.9 % (94-97); ABG PCO2 32 mmHg (35-45); ABG PH 7.42 (7.35-7.45); ABG PO2 105 mmHg (83-108); Allen Test Performed? Yes
[2021-01-06 05:33] LABS: Albumin 2.4 g/dL (3.5-5.0); Calcium 7.8 mg/dL (8.4-10.2); Potassium 4.1 mmol/L (3.5-5.1); Total Bilirubin 2.7 mg/dL (0.2-1.3); Total Protein 4.6 g/dL (6.3-8.2)
[2021-01-06] MEDS: PANTOPRAZOLE 40 MG/10 ML VIAL IVP SCH (07:52)
[2021-01-06] MEDS: METOPROLOL TARTRATE 12.5 MG TAB PO SCH ×2 (07:53→20:48)
[2021-01-06] MEDS: CHLORHEXIDINE GLUCONATE 15 ML CUP MUCOUS MEM SCH ×2 (07:53→20:48)
[2021-01-06] MEDS: LIDOCAINE 5% PATCH TOPICAL SCH (07:53)
[2021-01-06] MEDS: MIDODRINE 5 MG TAB PO SCH ×3 (07:53→18:13)
--- NOTE | 2021-01-06 08:33 | XR ---
EXAMINATION TYPE: XR abdomen 2V DATE OF EXAM: 01/06/2021 CLINICAL DATA: 80 year-old male abdominal distention, [facility] COMPARISON: 01/04/2021 FINDINGS: Median sternotomy wires are present. Left basilar opacity likely combination of small effusion with a djacent atelectasis and/or consolidation. No evidence for free intraperitoneal air. No dilated small bowel seen. Gassy and mildly distended colon with retained oral contrast material th roughout. Portions measure up to 7.7 cm versus 7.9 cm, previously. NG tube courses below the diaphrag m. IMPRESSION: 1. NG tube now in place. 2. Continued small left pleural effusion with adjacent atelectasis and/or consolidation. 3. No free air or small bowel obstruction seen. 4. Gaseous distention of the colon with residual scattered oral contrast material. Distention measure s up to 7.7 cm now versus 7.9 cm, previously. Possible ileus.
--- NOTE | 2021-01-06 08:37 | XR ---
EXAMINATION TYPE: XR chest 1V portable DATE OF EXAM: 01/06/2021 Comparison: 01/05/2021 Clinical History: 80-year-old male Tube placement Findings: ET tube tip 3.0 cm from the cassie. NG tube courses below the diaphragm. Median sternotomy wires are present. Right PICC tip at the mid SVC level. Heart remains enlarged with a diffuse interstitial and patchy bilateral airspace opacities. There are increasing basilar opacities suggesting increasing mod erate pleural effusions. Impression: 1. Correlate for CHF and slight worsening bilateral pulmonary edema. 2. Slight worsening moderate bilateral pleural effusions with adjacent atelectasis and/or consolidati on.
[2021-01-06] MEDS ORDERED: CALCIUM GLUCONATE 1 GM in SODIUM CHLORIDE 0.9% 100 ML IVPB ONE (09:06)
--- NOTE | 2021-01-06 09:29 | P.PN ---
Subjective Progress Note Date: 01/06/21 Principal diagnosis: Shortness of breath, bilateral pleural effusions, acute transaminitis, and acute kidney injury. 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 The patient was seen in follow-up today 01/02/2021 at his bedside in the intensive care unit. He remains intubated with mechanical ventilator support and is currently sedated on propofol drip at 20 mcg/kg/m. He is not following any verbal commands at this time although he does remove from noxious stimuli to all 4 extremities. Current mechanical ventilator settings are assist control 22, TB 400, FiO2 60% and a PEEP of 10. Arterial blood gas results of morning show a pH of 7.42, pCO2 32, pO2 105, HCO3 20 and base excess -2.9. Norepin ephrine drip currently infusing at 0.27 mcg/kg/m for blood pressure support with a current blood pressure showing 92/61 with a map of 74 mmHg. Bedside telemetry showing atrial fibrillation heart rate 93 BPM and he remains on amiodarone drip at 1 mg/m. He remains afebrile the last 24 hours. Laboratory results this morning show his WBC count trending up at 29.6, hemoglobin 10.8, hematocrit 34.9, platelets 189, sodium 131, potassium 4.1, venous CO2 18, BUN 59, creatinine 1.99, plasma lactic acid 2.8, AST 64 and ALT 226. The patient was started on Lasix drip at 10 mg per hour yesterday managed by nephrology. He is also on heparin drip at 700 units per hour for anticoagulation. An ultrasound of his history was completed yesterday which shows a left-sided pleural fluid pocket of 8.0 cm. OG tube remains in place to low intermittent wall suction with 100 mL of bile-colored drainage output in the last 24 hours. He remains on Zosyn for antibiotic coverage. Objective - Vital Signs Vital signs: Vital Signs Temp 97.9 F 01/06/21 04:00 Pulse 101 H 01/06/21 07:00 Resp 23 01/06/21 07:00 BP 72/54 01/06/21 06:00 Pulse Ox 100 01/06/21 07:00 Intake & Output 01/05/21 01/06/21 01/06/21 18:59 06:59 18:59 Intake Total 420 1402.258 10 Output Total 685 780 60 Balance -265 622.258 -50 Weight 99.6 kg 102.1 kg Intake: IV 120 120 10 .9 @ 10mL/hr 120 120 10 Intake, IV Titration 300 1282.258 0 Amount Amiodarone 360 mg In 200 384.443 Dextrose 5% in Water 200 ml @ 1 MG/MIN 33.333 mls/ hr IV .Q6H [facility] Rx#: [id number] Furosemide 100 mg In 160.166 Sodium Chloride 0.9% 90 ml @ 10 MG/HR 10 mls/hr IV .Q10H [facility] Rx#: [id number] Heparin Sod,Pork in 0.45% 178 0 NaCl 25,000 unit In 0.45 % NaCl 1 250ml.bag @ 10. 04 UNITS/KG/HR 10 mls/hr IV .Q24H [facility] Rx#: [id number] Norepinephrine 8 mg In 264.133 Sodium Chloride 0.9% 250 ml @ 0.05 MCG/KG/MIN 9. 549 mls/hr IV .Q24H [facility] Rx#:[id number] Piperacillin-Tazobactam 3 200 .375 gm In Sodium Chloride 0.9% 100 ml @ 25 mls/hr IVPB Q8H [facility] Rx#: [id number] propofoL 1,000 mg In 100 95.516 Empty Bag 1 bag @ Titrate IV .Q0M [facility]ENDA Rx#: [id number] Output: Urine 685 780 60 Other: Voiding Method Indwelling Catheter Indwelling Catheter ABP, PAP, CO, CI - Last Documented Arterial Blood Pressure 97/63 - Exam CONSTITUTIONAL: Currently is intubated with mechanical ventilator support, sedated on propofol drip at 20 mcg/kg/m, is not following any commands at this time, although does withdraw from noxious stimuli. No apparent acute distress. HEENT: Neck is supple, no JVD, no lymphadenopathy. RESPIRATORY: Lungs sounds essentially clear throughout, diminished to his bilateral bases, left greater than right. Respirations are symmetrical and nonlabored with mechanical ventilator support. Mechanical ventilator settings are as follows assist control 22, TV 400, FiO2 60% PEEP of 10. Current oxygen saturations are 99% on current mechanical ventilator settings. CARDIOVASCULAR: Irregular rhythm and controlled rate. S1 and S2 present, negative for S3, gallop or murmur. Sternum is stable. Palpable peripheral pulses bilaterally, generalized anasarca. Heart hugger in place. Knee-high HA hose and sequential compression devices in place to his bilateral lower extremities. GASTROINTESTINAL: Abdomen soft, and slightly distended. Absent bowel sounds. No guarding or rigidity. Last bowel movement 01/02/2021. OG tube in place with low intermittent wall suction with 100 mL output in the last 24 hours. GENITOURINARY: Barrow catheter present draining cloudy, holly urine. Output 470 mL in the last 8 hours. INTEGUMENTARY: Skin is warm and dry with no evidence of clubbing or cyanosis. Midline sternal incision clean dry and well approximated, covered with dry intact dressing. Left lower extremity EVH sites well approximated without redness or drainage. Left arm radial artery harvest sites clean, dry and approximated. No drainage or redness is present. Weeping edema to his bilateral lower extremities and bilateral upper extremities. NEUROLOGIC: Unable to accurately assess at this time as the patient is sedated on propofol drip. MUSKULOSKELETAL: Unable to accurately assess at this time as the patient is sedated on propofol drip. He does withdraw from noxious stimuli to all 4 extremities. PSYCHIATRIC: Unable to accurately assess at this time as the patient is sedated on propofol drip. - Allied health notes Allied health notes reviewed: nursing - Labs CBC & Chem 7: 01/06/21 03:42 01/06/21 03:42 Labs: Abnormal Lab Results - Last 24 Hours (Table) 01/05/21 01/05/21 01/05/21 Range/Units 08:57 11:42 17:35 WBC (3.8-10.6) k/uL RBC (4.30-5.90) m/uL Hgb (13.0-17.5) gm/dL Hct (39.0-53.0) % MCHC (31.0-37.0) g/dL RDW (11.5-15.5) % APTT (22.0-30.0) sec ABG pCO2 (35-45) mmHg ABG HCO3 (21-25) mmol/L ABG O2 Saturation (94-97) % Sodium (137-145) mmol/L Carbon Dioxide (22-30) mmol/L BUN (9-20) mg/dL Creatinine (0.66-1.25) mg/dL Glucose (74-99) mg/dL POC Glucose (mg/dL) 125 H (75-99) mg/dL Plasma Lactic Acid Juan 3.0 H* 3.4 H* (0.7-2.0) mmol/L Calcium (8.4-10.2) mg/dL Total Bilirubin (0.2-1.3) mg/dL AST (17-59) U/L ALT (4-49) U/L Alkaline Phosphatase (38-126) U/L Total Protein (6.3-8.2) g/dL Albumin (3.5-5.0) g/dL 01/05/21 01/05/21 01/05/21 Range/Units 17:53 18:32 23:00 WBC (3.8-10.6) k/uL RBC (4.30-5.90) m/uL Hgb (13.0-17.5) gm/dL Hct (39.0-53.0) % MCHC (31.0-37.0) g/dL RDW (11.5-15.5) % APTT (22.0-30.0) sec ABG pCO2 33 L (35-45) mmHg ABG HCO3 20 L (21-25) mmol/L ABG O2 Saturation 98.6 H (94-97) % Sodium (137-145) mmol/L Carbon Dioxide (22-30) mmol/L BUN (9-20) mg/dL Creatinine (0.66-1.25) mg/dL Glucose (74-99) mg/dL POC Glucose (mg/dL) 124 H (75-99) mg/dL Plasma Lactic Acid Juan 3.2 H* (0.7-2.0) mmol/L Calcium (8.4-10.2) mg/dL Total Bilirubin (0.2-1.3) mg/dL AST (17-59) U/L ALT (4-49) U/L Alkaline Phosphatase (38-126) U/L Total Protein (6.3-8.2) g/dL Albumin (3.5-5.0) g/dL 01/05/21 01/06/21 01/06/21 Range/Units 23:59 03:42 03:42 WBC 29.6 H (3.8-10.6) k/uL RBC 3.61 L (4.30-5.90) m/uL Hgb 10.8 L (13.0-17.5) gm/dL Hct 34.9 L (39.0-53.0) % MCHC 30.8 L (31.0-37.0) g/dL RDW 16.2 H (11.5-15.5) % APTT (22.0-30.0) sec ABG pCO2 (35-45) mmHg ABG HCO3 (21-25) mmol/L ABG O2 Saturation (94-97) % Sodium 131 L (137-145) mmol/L Carbon Dioxide 18 L (22-30) mmol/L BUN 59 H (9-20) mg/dL Creatinine 1.99 H (0.66-1.25) mg/dL Glucose 186 H (74-99) mg/dL POC Glucose (mg/dL) 226 H (75-99) mg/dL Plasma Lactic Acid Juan (0.7-2.0) mmol/L Calcium 7.8 L (8.4-10.2) mg/dL Total Bilirubin 2.7 H (0.2-1.3) mg/dL AST 64 H (17-59) U/L ALT 226 H (4-49) U/L Alkaline Phosphatase 168 H (38-126) U/L Total Protein 4.6 L (6.3-8.2) g/dL Albumin 2.4 L (3.5-5.0) g/dL 01/06/21 01/06/21 01/06/21 Range/Units 03:42 03:43 05:00 WBC (3.8-10.6) k/uL RBC (4.30-5.90) m/uL Hgb (13.0-17.5) gm/dL Hct (39.0-53.0) % MCHC (31.0-37.0) g/dL RDW (11.5-15.5) % APTT 156.8 H* (22.0-30.0) sec ABG pCO2 32 L (35-45) mmHg ABG HCO3 20 L (21-25) mmol/L ABG O2 Saturation 98.9 H (94-97) % Sodium (137-145) mmol/L Carbon Dioxide (22-30) mmol/L BUN (9-20) mg/dL Creatinine (0.66-1.25) mg/dL Glucose (74-99) mg/dL POC Glucose (mg/dL) (75-99) mg/dL Plasma Lactic Acid Juan 2.8 H* (0.7-2.0) mmol/L Calcium (8.4-10.2) mg/dL Total Bilirubin (0.2-1.3) mg/dL AST (17-59) U/L ALT (4-49) U/L Alkaline Phosphatase (38-126) U/L Total Protein (6.3-8.2) g/dL Albumin (3.5-5.0) g/dL Microbiology - Last 24 Hours (Table) 12/31/20 03:39 Blood Culture - Final Blood No Growth after 144 hours 01/04/21 21:08 Sputum Culture - Preliminary Sputum - Imaging and Cardiology Chest x-ray: report reviewed, image reviewed Assessment and Plan Assessment: 1. Acute hypoxic respiratory failure, likely from fluid overload. Bilateral pleural effusions. Reintubated on 01/04/2021 with mechanical ventilator support in place 2. Acute transaminitis, likely from hepatic congestion secondary to heart failure, LFTs continue trending down 3. Bilateral pleural effusions, drained right 650 mL, left 1200 mL 12/30/20 4. Acute kidney injury, possibly from obstructive uropathy 5. Coronary artery disease status post PCI to the LAD in 2005 and subsequent 4 vessel CABG on 12/16/2020 6. Previously preserved left ventricular function, mildly impaired left ve ntricular systolic function with EF 45-50% on current TTE 7. Chronic atrial fibrillation on Coumadin for anticoagulation on an outpatient with supratherapeutic INR on admission, status post exclusion of the left atrial appendage, currently on heparin drip 8. History of hypertension, currently hypotensive on norepinephrine drip 9. History of hyperlipidemia, treated 10. Diet controlled diabetes mellitus, recent hemoglobin A1c 6.2% 11. Obstructive sleep apnea on home CPAP 12. History of pituitary tumor 13. Lifetime nonsmoker with a preoperative FEV1 91% of predicted 14. History of daily wine consumption 15. 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 Metabolic acidosis, resolved 17. Urinary tract infection, urine culture positive for pseudomonas aeruginosa 18. GERD Plan: 1. Continue aspirin, and low-dose beta junito. Continue to hold statin until liver enzymes returned to normal. AST and ALT continue to trend down. 2. Continue amiodarone per recommendations from cardiology. 3. Continue midodrine 10 mg by mouth 3 times a day. 4. Mechanical ventilator management per pulmonary/critical care management. Bronchodilators, per pulmonology/critical care management. 5. Lasix recommendations per nephrology. Continue Lasix drip at 10 mg per hour per nephrology recommendations. 6. Will continue to monitor daily labs and chest x-rays. 7. Avoid nephrotoxins. 8. Continue sternal precautions. Heart hugger is in place. 9. Medical management of other comorbidities per primary care service 10. Urine culture showing Pseudomonas aeruginosa, antibiotic management recommendations per pulmonary/critical care medicine. Currently on Zosyn for antibiotic coverage. Consult infectious disease as his white count is trending up. 11. Start tube feedings per dietary recommendations, trickle feedings initially. 12. Keep Barrow catheter in place per urologist recommendations. 13. GI and DVT prophylaxis 14. Continue heparin drip per low intensity protocol. 15. Calcium gluconate 1 g IV piggyback 1 now. 16. Maintain OG tube to low intermittent wall suction. 17. Send stat amylase and lipase. 18. Ultrasound of his abdomen ordered. 19. More recommendations to follow based on patient's clinical course. Time with Patient: Greater than 30
[2021-01-06] MEDS: IPRATROPIUM-ALBUTEROL 3 ML NEB INHALATION SCH ×4 (09:51→19:13)
[2021-01-06] MEDS: HEPARIN SOD,PORK IN 0.45% NACL 25,000 UNIT in 0.45% NACL 1 250ML.BAG IV SCH ×2 (09:55→20:49)
[2021-01-06] MEDS ORDERED: IOPAMIDOL CONTRAST (ORAL USE) VIAL PO PRN (10:06)
--- NOTE | 2021-01-06 10:08 | US ---
EXAMINATION TYPE: US abdomen complete DATE OF EXAM: 01/06/2021 COMPARISON: Correlation CT 01/05/2021 CLINICAL HISTORY: 80-year-old male Abdominal distention, elevated LFTs. Intubated ICU pt with extensi ve pitting edema throughout body, distended abd with elevated LFTs. TECHNIQUE: Multiple sonographic images of the abdomen are obtained. FINDINGS: EXAM MEASUREMENTS: Liver Length: 14.7 cm Gallbladder Wall: 0.3 cm CBD: 0.5 cm Spleen: not seen Right Kidney: 11.8 x 4.5 x 5.1 cm Left Kidney: 10.7 x 4.9 x 6.2 cm Pancreas: not seen due to bowel gas Liver: very limited intercostal imaging of the right lobe . Gallbladder: wnl Evidence for sonographic Schwartz's sign: no CBD: wnl Spleen: not seen due to gas Right Kidney: wnl Left Kidney: limited views show no evidence hydronephrosis Upper IVC: wnl Abd Aorta: not seen due to bowel gas Mild abdominal ascites. Small to moderate right pleural effusion. IMPRESSION: 1. Mild abdominal ascites since small to moderate right pleural effusion. 2. Multiple structures could not be adequately visualized due to patient limitations including the pa ncreas, large portions of liver, spleen, and abdominal aorta. 3. No gallstones or biliary ductal dilatation identified. 4. No obvious hydronephrosis.
--- NOTE | 2021-01-06 10:08 | PN ---
PROGRESS NOTE Mr. Valero is a 80-year-old male who underwent coronary artery bypass grafting, was readmitted with progressive dyspnea. He has a history of chronic persistent atrial fibrillation. He is intubated and sedated. He is in atrial fibrillation with a controlled ventricular response. A repeat echocardiogram was performed yesterday and revealed an ejection fraction of 50% to 55%. He continues to be on IV amiodarone and IV norepinephrine. He was evaluated by the surgical team for his abdominal distention. He is on an IV Lasix drip with good urine output. The dose of the norepinephrine is lower today. He continues on aspirin, the IV Lasix, the IV heparin, amiodarone, metoprolol tartrate 12.5 mg twice a day. PHYSICAL EXAMINATION: Blood pressure running in the low 100s with a heart rate in 90s to low 100s. LUNGS: Clear anteriorly. HEART: Irregularly irregular. S1, S2. No S3, with systolic murmur. No diastolic murmur. ABDOMEN: Soft. Hypoactive bowel sounds. No organomegaly. EXTREMITIES: Plus one edema. LAB DATA: Hemoglobin 10.8. His white blood cell count is 29.6, which has increased compared to yesterday. His BUN and creatinine are 59 and 1.99. ALT is 226, which has improved. His plasma lactic acid is down to 2.8. His albumin is 2.4. IMPRESSION: 1. Status post coronary artery bypass grafting. 2. Respiratory failure with pleural effusion and possible lung infection. Patient has an ejection fraction of 50% to 55%, which is relatively stable. 3. Chronic persistent atrial fibrillation. Patient has been anticoagulated in the past. 4. Worsening renal function. Urine output is better. 5. Abnormal liver function tests postoperatively, improving. 6. Edema. 7. Abdominal distention with no evidence of acute abdomen. RECOMMENDATIONS: Will continue IV heparin at this time. Continue antibiotics as needed. Follow the renal function closely as well as liver function tests. For now I will continue IV amiodarone to control his ventricular response. Depending on his blood pressure, the dose of the beta junito can be further increased once he is off the norepinephrine. Depending on his progress, further recommendations will be made. The prognosis remains guarded. MMODL / IJN: [id number] /
--- NOTE | 2021-01-06 10:39 | P.PN ---
Subjective Patient is seen in follow-up for acute kidney injury. Renal function is worse from diuresis. Currently on Lasix drip at 10 mL an hour. Urine output about 60-75 mL an hour. Currently on 30 mics of Levophed. Intubated. On 50% FiO2. On amiodarone drip for A. fib. Vital signs are stable. On vasopressor support. General: Intubated. HEENT: Head exam is unremarkable. LUNGS: Breath sounds decreased. HEART: Irregular rate and rhythm. ABDOMEN: Soft, no distention. EXTREMITITES: 2+ edema. Scrotal edema noted. Objective - Vital Signs Vital signs: Vital Signs Temp 98.3 F 01/06/21 08:00 Pulse 97 01/06/21 10:00 Resp 22 01/06/21 10:00 BP 72/54 01/06/21 06:00 Pulse Ox 98 01/06/21 10:00 Intake & Output 01/05/21 01/06/21 01/06/21 18:59 06:59 18:59 Intake Total 420 1402.258 251.007 Output Total 685 780 220 Balance -265 622.258 31.007 Weight 99.6 kg 102.1 kg 103.4 kg Intake: IV 120 120 40 .9 @ 10mL/hr 120 120 40 Intake, IV Titration 300 1282.258 211.007 Amount Amiodarone 360 mg In 200 384.443 192.776 Dextrose 5% in Water 200 ml @ 1 MG/MIN 33.333 mls/ hr IV .Q6H [facility] Rx#: [id number] Furosemide 100 mg In 160.166 Sodium Chloride 0.9% 90 ml @ 10 MG/HR 10 mls/hr IV .Q10H [facility] Rx#: [id number] Heparin Sod,Pork in 0.45% 178 18.231 NaCl 25,000 unit In 0.45 % NaCl 1 250ml.bag @ 10. 04 UNITS/KG/HR 10 mls/hr IV .Q24H [facility] Rx#: [id number] Norepinephrine 8 mg In 264.133 Sodium Chloride 0.9% 250 ml @ 0.05 MCG/KG/MIN 9. 549 mls/hr IV .Q24H [facility] Rx#:[id number] Piperacillin-Tazobactam 3 200 .375 gm In Sodium Chloride 0.9% 100 ml @ 25 mls/hr IVPB Q8H [facility] Rx#: [id number] propofoL 1,000 mg In 100 95.516 Empty Bag 1 bag @ Titrate IV .Q0M [facility] Rx#: [id number] Output: Urine 685 780 220 Other: Voiding Method Indwelling Catheter Indwelling Catheter Indwelling Catheter ABP, PAP, CO, CI - Last Documented Arterial Blood Pressure 88/56 - Labs CBC & Chem 7: 01/06/21 03:42 01/06/21 03:42 Labs: Abnormal Lab Results - Last 24 Hours (Table) 01/05/21 01/05/21 01/05/21 Range/Units 11:42 17:35 17:53 WBC (3.8-10.6) k/uL RBC (4.30-5.90) m/uL Hgb (13.0-17.5) gm/dL Hct (39.0-53.0) % MCHC (31.0-37.0) g/dL RDW (11.5-15.5) % APTT (22.0-30.0) sec ABG pCO2 (35-45) mmHg ABG HCO3 (21-25) mmol/L ABG O2 Saturation (94-97) % Sodium (137-145) mmol/L Carbon Dioxide (22-30) mmol/L BUN (9-20) mg/dL Creatinine (0.66-1.25) mg/dL Glucose (74-99) mg/dL POC Glucose (mg/dL) 125 H 124 H (75-99) mg/dL Plasma Lactic Acid Juan 3.4 H* (0.7-2.0) mmol/L Calcium (8.4-10.2) mg/dL Total Bilirubin (0.2-1.3) mg/dL AST (17-59) U/L ALT (4-49) U/L Alkaline Phosphatase (38-126) U/L Total Protein (6.3-8.2) g/dL Albumin (3.5-5.0) g/dL 01/05/21 01/05/21 01/05/21 Range/Units 18:32 23:00 23:59 WBC (3.8-10.6) k/uL RBC (4.30-5.90) m/uL Hgb (13.0-17.5) gm/dL Hct (39.0-53.0) % MCHC (31.0-37.0) g/dL RDW (11.5-15.5) % APTT (22.0-30.0) sec ABG pCO2 33 L (35-45) mmHg ABG HCO3 20 L (21-25) mmol/L ABG O2 Saturation 98.6 H (94-97) % Sodium (137-145) mmol/L Carbon Dioxide (22-30) mmol/L BUN (9-20) mg/dL Creatinine (0.66-1.25) mg/dL Glucose (74-99) mg/dL POC Glucose (mg/dL) 226 H (75-99) mg/dL Plasma Lactic Acid Juan 3.2 H* (0.7-2.0) mmol/L Calcium (8.4-10.2) mg/dL Total Bilirubin (0.2-1.3) mg/dL AST (17-59) U/L ALT (4-49) U/L Alkaline Phosphatase (38-126) U/L Total Protein (6.3-8.2) g/dL Albumin (3.5-5.0) g/dL 01/06/21 01/06/21 01/06/21 Range/Units 03:42 03:42 03:42 WBC 29.6 H (3.8-10.6) k/uL RBC 3.61 L (4.30-5.90) m/uL Hgb 10.8 L (13.0-17.5) gm/dL Hct 34.9 L (39.0-53.0) % MCHC 30.8 L (31.0-37.0) g/dL RDW 16.2 H (11.5-15.5) % APTT (22.0-30.0) sec ABG pCO2 (35-45) mmHg ABG HCO3 (21-25) mmol/L ABG O2 Saturation (94-97) % Sodium 131 L (137-145) mmol/L Carbon Dioxide 18 L (22-30) mmol/L BUN 59 H (9-20) mg/dL Creatinine 1.99 H (0.66-1.25) mg/dL Glucose 186 H (74-99) mg/dL POC Glucose (mg/dL) (75-99) mg/dL Plasma Lactic Acid Juan 2.8 H* (0.7-2.0) mmol/L Calcium 7.8 L (8.4-10.2) mg/dL Total Bilirubin 2.7 H (0.2-1.3) mg/dL AST 64 H (17-59) U/L ALT 226 H (4-49) U/L Alkaline Phosphatase 168 H (38-126) U/L Total Protein 4.6 L (6.3-8.2) g/dL Albumin 2.4 L (3.5-5.0) g/dL 01/06/21 01/06/21 Range/Units 03:43 05:00 WBC (3.8-10.6) k/uL RBC (4.30-5.90) m/uL Hgb (13.0-17.5) gm/dL Hct (39.0-53.0) % MCHC (31.0-37.0) g/dL RDW (11.5-15.5) % APTT 156.8 H* (22.0-30.0) sec ABG pCO2 32 L (35-45) mmHg ABG HCO3 20 L (21-25) mmol/L ABG O2 Saturation 98.9 H (94-97) % Sodium (137-145) mmol/L Carbon Dioxide (22-30) mmol/L BUN (9-20) mg/dL Creatinine (0.66-1.25) mg/dL Glucose (74-99) mg/dL POC Glucose (mg/dL) (75-99) mg/dL Plasma Lactic Acid Juan (0.7-2.0) mmol/L Calcium (8.4-10.2) mg/dL Total Bilirubin (0.2-1.3) mg/dL AST (17-59) U/L ALT (4-49) U/L Alkaline Phosphatase (38-126) U/L Total Protein (6.3-8.2) g/dL Albumin (3.5-5.0) g/dL Microbiology - Last 24 Hours (Table) 01/04/21 21:08 Gram Stain - Preliminary Sputum Sputum Culture - Preliminary 12/31/20 03:39 Blood Culture - Final Blood No Growth after 144 hours Assessment and Plan Plan: Assessment: 1. Acute kidney injury secondary to ATN secondary to cardiorenal syndrome and hypotension. Creatinine stable at 1.99 today. 2. Volume overload. 3. A. fib with RVR maintained on amiodarone drip. 4. Pseudomonas UTI on antibiotics. 5. Acute hypoxic respiratory failure. 6. Hypervolemic hyponatremia. 7. Shock maintained on Levophed. Also on midodrine. 8. Respiratory alkalosis and metabolic acidosis. Plan: Maintain Lasix drip. Add metolazone 5 mg once daily. Continue to monitor renal function and urine output. Avoid nephrotoxins. Wean FiO2 and vasopressors. Check phosphorus level.
[2021-01-06 11:01] LABS: Amylase 34 U/L (30-110); Lipase 120 U/L (23-300)
--- NOTE | 2021-01-06 13:53 | P.PN ---
Subjective Progress Note Date: 01/06/21 Principal diagnosis: Acute hypoxic respiratory failure, secondary to acute systolic congestive heart failure and bilateral pleural effusions. 01/04/2021, the patient is struggling. Despite the fact that he is on room air oxygen, he seems to be uncomfortable and he keeps on 1 set up on a recliner. His oral intake is minimal. He has no stamina. He seems to be very much disco uraged and he feels at times that he wants to quit the treatment. In terms of his pulmonary status, he is on room air oxygen, I reviewed the chest x-ray from today and there is a moderate-sized left-sided pleural effusion. Right-sided pleural effusion has essentially recovered. Note that the patient has undergone bilateral thoracentesis. He continues to have signs of fluid overload with fluid in his upper and lower extremities with some fluid weeping from his skin in lower extremities. He is receiving Lasix 40 mg IV on a daily basis. Overall fluid balance over the past 24 hours has been in the order of negative to 80 mL. He continues to have episodes of atrial fibrillation with rapid ventricular response. Along with A. fib RVR, he became hypotensive and his urine output dropped. He was given IV albumin. He was given a bolus of 500 mL yesterday. He was started on amiodarone drip loading, initially on 1 mg per minute and later on 0.5 mg per minute. His current heart rate is around 110. His most recent blood pressure is 99/61. His serum albumin is at 2.9. INR is at 2.0. Creatinine is at 1.5 with a BUN of 59, sodium is at 132, serum bicarbonate 20. Oral intake is quite diminished at this point in time. His echocardiogram was showing a preserved LV function. Urology evaluated the patient. The recommendation was to keep in the Barrow catheter. He is completing a 5 day course of IV cefepime regarding pseudomonas aeruginosa in the urine with possible infection. He is afebrile for now. Surgical wound site is dry clean and intact. His last bowel movement was 2 days ago. Patient was reevaluated today on 01/05/21, patient deteriorated last night, and he was intubated and placed on mechanical ventilation. He is presently on FiO2 of 60% tidal volume of 400 assist control rate of 22 and PEEP of 10. ABG showed a pO2 of 74 pCO2 of 39 pH of 7.39. Patient is sedated, he is on propofol at 30 mcg/kg/m, hypotensive requiring norepinephrine at 0.25 mcg/kg/m, is also on amiodarone drip at 1 mg/m, and IV fluid at KVO. Patient is not making much urine, does not seem to be making any urine output with Lasix IV push, hence I recommended starting the patient on Lasix at 10 mg per hour drip. Chest x-ray is consistent with congestive heart failure, patient is extremely edematous, he has abdominal distention, abdominal wall edema, and significant bipedal edema. Patient will be pancultured, he had a lactic acid of 3.0 earlier today. Cortisol level is 55. He believes he got is 17.3 hemoglobin is 12. Electrolytes are relatively normal except for bicarb of 20 BUN is 61 creatinine 1.73. Liver enzymes are a bit elevated but they seem to be improving over the last few days. Patient again is now on Lasix drip at 10 mg per hour, he is on Zosyn empirically. She is also on GI prophylaxis, and on bronchodilators. He was on Coumadin with INR of 1.8 today, and I would likely recommend heparin, patient will eventually need a PICC line placed tomorrow, today I went ahead and placed on arterial line because of his profound hypotension requiring relatively high dose of norepinephrine. Reevaluated today on 01/06/21, patient remains in the ICU, remains intubated and mechanically ventilated. He is on assist control rate of 20 to tell volume is 400 FiO2 50% and PEEP of 10. ABG today showed a pO2 of 105 pCO2 of 32 pH of 7.32. Chest x-ray continues to show evidence of pulmonary edema. Patient remains on Lasix drip at 10 mg per hour, amiodarone at 1 mg/m, propofol at 20 heparin drip, is also on norepinephrine at 0.3 mcg/kg/m. Patient continues to h ave leukocytosis, cultures so far nondiagnostic although he did have a UTI. Blood cultures are negative so far. Infectious disease consultation was initiated, patient is presently on Zosyn. Echocardiogram showed no evidence of temporal not, but it did show evidence of ejection fraction of 45%. Patient remains in atrial fibrillation, however rate seems to be fairly well controlled. Nutrition-hernandez the patient will be started on enteral feeding today via orogastric tube. WBC count today is up to 29.6 hemoglobin is 10.8 electrolytes are normal renal profile showed slight worsening with a BUN of 59 and creatinine 1.99, however the patient seems to be improving with diuresis, and renal output seems to be better. Lactic acid is 2.2 today. Liver enzymes are borderline elevated. Objective - Vital Signs Vital signs: Vital Signs Temp 98.8 F 01/06/21 12:00 Pulse 88 01/06/21 13:00 Resp 22 01/06/21 13:00 BP 72/54 01/06/21 06:00 Pulse Ox 96 01/06/21 13:00 Intake & Output 01/05/21 01/06/21 01/06/21 18:59 06:59 18:59 Intake Total 420 1402.258 381.007 Output Total 685 780 460 Balance -265 622.258 -78.993 Weight 99.6 kg 102.1 kg 103.4 kg Intake: IV 120 120 70 .9 @ 10mL/hr 120 120 70 Intake, IV Titration 300 1282.258 311.007 Amount Amiodarone 360 mg In 200 384.443 192.776 Dextrose 5% in Water 200 ml @ 1 MG/MIN 33.333 mls/ hr IV .Q6H [facility]ENDA Rx#: [id number] Furosemide 100 mg In 160.166 Sodium Chloride 0.9% 90 ml @ 10 MG/HR 10 mls/hr IV .Q10H [facility] Rx#: [id number] Heparin Sod,Pork in 0.45% 178 18.231 NaCl 25,000 unit In 0.45 % NaCl 1 250ml.bag @ 10. 04 UNITS/KG/HR 10 mls/hr IV .Q24H [facility] Rx#: [id number] Norepinephrine 8 mg In 264.133 Sodium Chloride 0.9% 250 ml @ 0.05 MCG/KG/MIN 9. 549 mls/hr IV .Q24H [facility] Rx#:[id number] Piperacillin-Tazobactam 3 200 .375 gm In Sodium Chloride 0.9% 100 ml @ 25 mls/hr IVPB Q8H [facility] Rx#: [id number] propofoL 1,000 mg In 100 95.516 100 Empty Bag 1 bag @ Titrate IV .Q0M BRENDA Rx#: [id number] Output: Urine 235 570 460 Other: Voiding Method Indwelling Catheter Indwelling Catheter Indwelling Catheter ABP, PAP, CO, CI - Last Documented Arterial Blood Pressure 96/60 - Exam Physical Exam: Revealed 80-year-old white male intubated and mechanically ventilated. Sedated on propofol. Head: Atraumatic normocephalic. HEENT:[Neck is supple.] [No neck masses.] [No thyromegaly.] [No JVD.] Endotracheal tube and orogastric tube are intact. Chest: [Symmetrical chest expansion crackles at the bases bilaterally. No rhonchi and no wheezes. Cardiac Exam: Irregular irregular rhythm, 2/6 systolic murmur thought the precordium. Abdomen: Lightly distended, significant abdominal wall edema is noted, diminished bowel sounds.] Extremities: 2+ bipedal edema, no clubbing, no cyanosis. Neurological Exam: [Cannot be assessed, patient is sedated on propofol. Psychiatric: Could not be assessed. Skin: No rashes except the patient has areas of ecchymosis, and abrasions especially in the left forearm area. - Labs CBC & Chem 7: 01/06/21 03:42 01/06/21 03:42 Labs: Abnormal Lab Results - Last 24 Hours (Table) 01/05/21 01/05/21 01/05/21 Range/Units 17:35 17:53 18:32 WBC (3.8-10.6) k/uL RBC (4.30-5.90) m/uL Hgb (13.0-17.5) gm/dL Hct (39.0-53.0) % MCHC (31.0-37.0) g/dL RDW (11.5-15.5) % APTT (22.0-30.0) sec ABG pCO2 33 L (35-45) mmHg ABG HCO3 20 L (21-25) mmol/L ABG O2 Saturation 98.6 H (94-97) % Sodium (137-145) mmol/L Carbon Dioxide (22-30) mmol/L BUN (9-20) mg/dL Creatinine (0.66-1.25) mg/dL Glucose (74-99) mg/dL POC Glucose (mg/dL) 124 H (75-99) mg/dL Plasma Lactic Acid Juan 3.4 H* (0.7-2.0) mmol/L Calcium (8.4-10.2) mg/dL Total Bilirubin (0.2-1.3) mg/dL AST (17-59) U/L ALT (4-49) U/L Alkaline Phosphatase (38-126) U/L Total Protein (6.3-8.2) g/dL Albumin (3.5-5.0) g/dL 01/05/21 01/05/21 01/06/21 Range/Units 23:00 23:59 03:42 WBC 29.6 H (3.8-10.6) k/uL RBC 3.61 L (4.30-5.90) m/uL Hgb 10.8 L (13.0-17.5) gm/dL Hct 34.9 L (39.0-53.0) % MCHC 30.8 L (31.0-37.0) g/dL RDW 16.2 H (11.5-15.5) % APTT (22.0-30.0) sec ABG pCO2 (35-45) mmHg ABG HCO3 (21-25) mmol/L ABG O2 Saturation (94-97) % Sodium (137-145) mmol/L Carbon Dioxide (22-30) mmol/L BUN (9-20) mg/dL Creatinine (0.66-1.25) mg/dL Glucose (74-99) mg/dL POC Glucose (mg/dL) 226 H (75-99) mg/dL Plasma Lactic Acid Juan 3.2 H* (0.7-2.0) mmol/L Calcium (8.4-10.2) mg/dL Total Bilirubin (0.2-1.3) mg/dL AST (17-59) U/L ALT (4-49) U/L Alkaline Phosphatase (38-126) U/L Total Protein (6.3-8.2) g/dL Albumin (3.5-5.0) g/dL 01/06/21 01/06/21 01/06/21 Range/Units 03:42 03:42 03:43 WBC (3.8-10.6) k/uL RBC (4.30-5.90) m/uL Hgb (13.0-17.5) gm/dL Hct (39.0-53.0) % MCHC (31.0-37.0) g/dL RDW (11.5-15.5) % APTT 156.8 H* (22.0-30.0) sec ABG pCO2 (35-45) mmHg ABG HCO3 (21-25) mmol/L ABG O2 Saturation (94-97) % Sodium 131 L (137-145) mmol/L Carbon Dioxide 18 L (22-30) mmol/L BUN 59 H (9-20) mg/dL Creatinine 1.99 H (0.66-1.25) mg/dL Glucose 186 H (74-99) mg/dL POC Glucose (mg/dL) (75-99) mg/dL Plasma Lactic Acid Juan 2.8 H* (0.7-2.0) mmol/L Calcium 7.8 L (8.4-10.2) mg/dL Total Bilirubin 2.7 H (0.2-1.3) mg/dL AST 64 H (17-59) U/L ALT 226 H (4-49) U/L Alkaline Phosphatase 168 H (38-126) U/L Total Protein 4.6 L (6.3-8.2) g/dL Albumin 2.4 L (3.5-5.0) g/dL 01/06/21 01/06/21 Range/Units 05:00 12:45 WBC (3.8-10.6) k/uL RBC (4.30-5.90) m/uL Hgb (13.0-17.5) gm/dL Hct (39.0-53.0) % MCHC (31.0-37.0) g/dL RDW (11.5-15.5) % APTT (22.0-30.0) sec ABG pCO2 32 L (35-45) mmHg ABG HCO3 20 L (21-25) mmol/L ABG O2 Saturation 98.9 H (94-97) % Sodium (137-145) mmol/L Carbon Dioxide (22-30) mmol/L BUN (9-20) mg/dL Creatinine (0.66-1.25) mg/dL Glucose (74-99) mg/dL POC Glucose (mg/dL) (75-99) mg/dL Plasma Lactic Acid Juan 2.2 H* (0.7-2.0) mmol/L Calcium (8.4-10.2) mg/dL Total Bilirubin (0.2-1.3) mg/dL AST (17-59) U/L ALT (4-49) U/L Alkaline Phosphatase (38-126) U/L Total Protein (6.3-8.2) g/dL Albumin (3.5-5.0) g/dL Microbiology - Last 24 Hours (Table) 01/04/21 21:08 Gram Stain - Preliminary Sputum Sputum Culture - Preliminary 12/31/20 03:39 Blood Culture - Final Blood No Growth after 144 hours Assessment and Plan Assessment: Impression: Acute hypoxic respiratory failure secondary to acute on chronic systolic congestive heart failure with bilateral pleural effusions Coronary artery disease and recent 4 vessel bypass grafting discharged from the hospital on 12/25, echocardiogram showed mildly impaired left ventricle with ejection fraction of 45% Chronic atrial fibrillation. Acute kidney injury possible cardiorenal syndrome. Type 2 diabetes. Dyslipidemia. Hypotension requiring pressors could be secondary to hypoperfusion and LV dysfunction could also be related to sepsis Cultures are pending and the patient is empirically on antibiotics. Urinary cultures are positive for Pse udomonas. Infectious disease consultation was initiated. Elevated liver enzymes, could be hypoperfusional in nature. Acute urinary tract infection secondary to pseudomonas aeruginosa. Extensive edema, patient will be placed on Lasix drip. Profound weakness and debility Recommendation: Continue ventilatory support. Continue pressors. Continue Lasix at 10 mg per hour. Continue heparin. Nephrology was consulted, and presently on the case. Continue Zosyn. Nutritional support. Enteral feeding. Will be started today slowly. GI DVT prophylaxis. Need to discuss with family his overall status. And discuss CODE STATUS, hopefully will get to discuss this with family members today. Patient is critically ill. We will continue to follow. Critical care time is over 30 minutes not including time spent on procedures. Time with Patient: Greater than 30
--- NOTE | 2021-01-06 14:05 | P.PN ---
Subjective Progress Note Date: 01/06/21 CHIEF COMPLAINT: Shortness of breath HISTORY OF PRESENT ILLNESS: Surgical service is following in regards to patient's abdominal distention. Case discussed with cardiothoracic nurse practitioner this morning. Patient had been dealing with abdominal distention and severe abdominal pain with intermittent nausea and hypotension after his CABG on 12/25/2020. Patient also had been hypotensive. Also reported that patient did have blood clots in the atrium noted on SHEA. Has a history of atrial fibrillation. Patient is still requiring Levophed for his hypotension. White count has gone up to 29.6. Hemoglobin has dropped to 10.8 lactic acid is 2.8. Albumin 2.5 LFTs trending downwards. Patient remains intubated and sedated. Patient is on Lasix drip due to his extensive edema. On antibiotics for UTI. Also maintained on IV heparin. Abdominal x-ray NG tube in place. Continued small left pleural effusion with adjacent atelectasis and/or consolidation. No free air or small bowel obstruction seen. Gaseous distention of the colon with residual scattered oral contrast material. Distention measured up to 7.7 cm now versus 7.9 cm previously. Possible ileus. Abdominal ultrasound shows mild abdominal ascites small to moderate right pleural effusion. Multiple structures cannot be adequately visualized due to patient's limitation including the pancreas, large portions of liver, spleen and abdominal aorta. No gallstones or biliary ductal dilation identified. No obvious hydronephrosis. Chest x-ray correlate for CHF and slight worsening bilateral pulmonary edema. Slight worsening moderate bilateral pleural effusions with adjacent atelectasis or and/or consolidation. Patient seen and examined with Dr. man PHYSICAL EXAM: VITAL SIGNS: Reviewed. GENERAL: Well-developed in no acute distress. HEENT: No sclera icterus. Extraocular movements grossly intact. Moist buccal m ucosa. Head is atraumatic, normocephalic. ABDOMEN: Soft. Distended NEUROLOGIC: Alert and oriented. Cranial nerves II through XII grossly intact. ASSESSMENT: 1. Abdominal distention 2. Acute hypoxic respiratory failure due to fluid overload and bilateral pleural effusions PLAN: -Computed tomography scan of abdomen and pelvis with oral contrast ordered for further evaluation of abdominal distention. -Further recommendations forthcoming per CAT scan results -Continue ICU management -Continue supportive care Physician Programs Director note has been reviewed by physician. Signing provider agrees with the documented findings, assessment, and plan of care. Objective - Vital Signs Vital signs: Vital Signs Temp 98.8 F 01/06/21 12:00 Pulse 88 01/06/21 13:00 Resp 22 01/06/21 13:00 BP 72/54 01/06/21 06:00 Pulse Ox 96 01/06/21 13:00 Intake & Output 01/05/21 01/06/21 01/06/21 18:59 06:59 18:59 Intake Total 420 1402.258 381.007 Output Total 685 780 460 Balance -265 622.258 -78.993 Weight 99.6 kg 102.1 kg 103.4 kg Intake: IV 120 120 70 .9 @ 10mL/hr 120 120 70 Intake, IV Titration 300 1282.258 311.007 Amount Amiodarone 360 mg In 200 384.443 192.776 Dextrose 5% in Water 200 ml @ 1 MG/MIN 33.333 mls/ hr IV .Q6H [facility] Rx#: [id number] Furosemide 100 mg In 160.166 Sodium Chloride 0.9% 90 ml @ 10 MG/HR 10 mls/hr IV .Q10H [facility] Rx#: [id number] Heparin Sod,Pork in 0.45% 178 18.231 NaCl 25,000 unit In 0.45 % NaCl 1 250ml.bag @ 10. 04 UNITS/KG/HR 10 mls/hr IV .Q24H [facility] Rx#: [id number] Norepinephrine 8 mg In 264.133 Sodium Chloride 0.9% 250 ml @ 0.05 MCG/KG/MIN 9. 549 mls/hr IV .Q24H [facility] Rx#:[id number] Piperacillin-Tazobactam 3 200 .375 gm In Sodium Chloride 0.9% 100 ml @ 25 mls/hr IVPB Q8H [facility] Rx#: [id number] propofoL 1,000 mg In 100 95.516 100 Empty Bag 1 bag @ Titrate IV .Q0M [facility]EN[facility] Rx#: [id number] Output: Urine 685 780 460 Other: Voiding Method Indwelling Catheter Indwelling Catheter Indwelling Catheter ABP, PAP, CO, CI - Last Documented Arterial Blood Pressure 96/60 - Labs CBC & Chem 7: 01/06/21 03:42 01/06/21 03:42 Labs: Abnormal Lab Results - Last 24 Hours (Table) 01/05/21 01/05/21 01/05/21 Range/Units 17:35 17:53 18:32 WBC (3.8-10.6) k/uL RBC (4.30-5.90) m/uL Hgb (13.0-17.5) gm/dL Hct (39.0-53.0) % MCHC (31.0-37.0) g/dL RDW (11.5-15.5) % APTT (22.0-30.0) sec ABG pCO2 33 L (35-45) mmHg ABG HCO3 20 L (21-25) mmol/L ABG O2 Saturation 98.6 H (94-97) % Sodium (137-145) mmol/L Carbon Dioxide (22-30) mmol/L BUN (9-20) mg/dL Creatinine (0.66-1.25) mg/dL Glucose (74-99) mg/dL POC Glucose (mg/dL) 124 H (75-99) mg/dL Plasma Lactic Acid Juan 3.4 H* (0.7-2.0) mmol/L Calcium (8.4-10.2) mg/dL Total Bilirubin (0.2-1.3) mg/dL AST (17-59) U/L ALT (4-49) U/L Alkaline Phosphatase (38-126) U/L Total Protein (6.3-8.2) g/dL Albumin (3.5-5.0) g/dL 01/05/21 01/05/21 01/06/21 Range/Units 23:00 23:59 03:42 WBC 29.6 H (3.8-10.6) k/uL RBC 3.61 L (4.30-5.90) m/uL Hgb 10.8 L (13.0-17.5) gm/dL Hct 34.9 L (39.0-53.0) % MCHC 30.8 L (31.0-37.0) g/dL RDW 16.2 H (11.5-15.5) % APTT (22.0-30.0) sec ABG pCO2 (35-45) mmHg ABG HCO3 (21-25) mmol/L ABG O2 Saturation (94-97) % Sodium (137-145) mmol/L Carbon Dioxide (22-30) mmol/L BUN (9-20) mg/dL Creatinine (0.66-1.25) mg/dL Glucose (74-99) mg/dL POC Glucose (mg/dL) 226 H (75-99) mg/dL Plasma Lactic Acid Juan 3.2 H* (0.7-2.0) mmol/L Calcium (8.4-10.2) mg/dL Total Bilirubin (0.2-1.3) mg/dL AST (17-59) U/L ALT (4-49) U/L Alkaline Phosphatase (38-126) U/L Total Protein (6.3-8.2) g/dL Albumin (3.5-5.0) g/dL 01/06/21 01/06/21 01/06/21 Range/Units 03:42 03:42 03:43 WBC (3.8-10.6) k/uL RBC (4.30-5.90) m/uL Hgb (13.0-17.5) gm/dL Hct (39.0-53.0) % MCHC (31.0-37.0) g/dL RDW (11.5-15.5) % APTT 156.8 H* (22.0-30.0) sec ABG pCO2 (35-45) mmHg ABG HCO3 (21-25) mmol/L ABG O2 Saturation (94-97) % Sodium 131 L (137-145) mmol/L Carbon Dioxide 18 L (22-30) mmol/L BUN 59 H (9-20) mg/dL Creatinine 1.99 H (0.66-1.25) mg/dL Glucose 186 H (74-99) mg/dL POC Glucose (mg/dL) (75-99) mg/dL Plasma Lactic Acid Juan 2.8 H* (0.7-2.0) mmol/L Calcium 7.8 L (8.4-10.2) mg/dL Total Bilirubin 2.7 H (0.2-1.3) mg/dL AST 64 H (17-59) U/L ALT 226 H (4-49) U/L Alkaline Phosphatase 168 H (38-126) U/L Total Protein 4.6 L (6.3-8.2) g/dL Albumin 2.4 L (3.5-5.0) g/dL 01/06/21 01/06/21 Range/Units 05:00 12:45 WBC (3.8-10.6) k/uL RBC (4.30-5.90) m/uL Hgb (13.0-17.5) gm/dL Hct (39.0-53.0) % MCHC (31.0-37.0) g/dL RDW (11.5-15.5) % APTT (22.0-30.0) sec ABG pCO2 32 L (35-45) mmHg ABG HCO3 20 L (21-25) mmol/L ABG O2 Saturation 98.9 H (94-97) % Sodium (137-145) mmol/L Carbon Dioxide (22-30) mmol/L BUN (9-20) mg/dL Creatinine (0.66-1.25) mg/dL Glucose (74-99) mg/dL POC Glucose (mg/dL) (75-99) mg/dL Plasma Lactic Acid Juan 2.2 H* (0.7-2.0) mmol/L Calcium (8.4-10.2) mg/dL Total Bilirubin (0.2-1.3) mg/dL AST (17-59) U/L ALT (4-49) U/L Alkaline Phosphatase (38-126) U/L Total Protein (6.3-8.2) g/dL Albumin (3.5-5.0) g/dL Microbiology - Last 24 Hours (Table) 01/04/21 21:08 Gram Stain - Preliminary Sputum Sputum Culture - Preliminary 12/31/20 03:39 Blood Culture - Final Blood No Growth after 144 hours
[2021-01-06] MEDS: FERROUS SULFATE 325 MG TAB PO SCH (15:16)
[2021-01-06] MEDS: metOLazone 5 MG TAB PO SCH (15:16)
--- NOTE | 2021-01-06 15:26 | CT ---
EXAMINATION TYPE: CT abdomen pelvis wo con DATE OF EXAM: 01/06/2021 COMPARISON: 01/05/2021 HISTORY: 80-year-old male abdominal distention and pain CT DLP: 1360.7 mGycm. Automated exposure control for dose reduction was used. TECHNIQUE: Contiguous axial scanning of the abdomen and pelvis without IV contrast. Coronal and sagit damien reconstructions performed. FINDINGS: Marked generalized anasarca change has increased in the interval. Areas of edema along the visualized bilateral thighs. Small bilateral pleural effusions with prominent lower lobe consolidation. Additional inferior lingul ar consolidation also redemonstrated. Heart borderline enlarged with post-CABG change and median ster notomy wires. NG tube is present. Fairly similar mild overall abdominal ascites. Borderline distention of the gallbladder 4.0 cm wide. Noncontrast appearance of the liver, adrenal gl ands, right kidney, spleen, and pancreas show no gross abnormality. Punctate 2 mm nonobstructive left renal calculus. Mild to moderate prostatic calcifications abdominal aorta and iliac arteries. No mesenteric or retroperitoneal lymphadenopathy identified. No dilated small bowel or free air. Oral contrast progressed to the rectum. No perisplenic inflammatory change. No significant stool miguel a en. Prostate gland enlargement 5.9 cm wide. Barrow catheter balloon within the lumen of the bladder. Suspe ct a 1.1 cm left-sided intraluminal bladder calculus. Circumference of bladder wall thickening. Nonde pendent intraluminal bladder air likely due to the instrumentation. Marked edema and enlargement of the scrotum. Bones: Degenerative bony ankylosis left SI joint. Left L5 hemisacralization with a degenerative assim ilation joint. Facet arthropathy mid to lower lumbar spine. Anterior endplate spondylosis lower thora cic spine. IMPRESSION: 1. Ongoing fairly severe anasarca change. Continued third spacing given continued mild abdominopelvi c ascites and small bilateral pleural effusions. 2. Continued severe lower lobe and inferior lingular consolidation. Correlate for infectious or aspi ration pneumonitis. 3. Extensive edematous change extends to include the deeper planes of the visualized upper thighs. C orrelate to exclude any signs/symptoms of infection or myositis. 4. Circumferential bladder wall thickening could represent chronic bladder wall hypertrophy or cysti tis. There is prostatomegaly of 5.9 cm wide. Barrow catheter in place.
--- NOTE | 2021-01-06 15:58 | P.PN ---
Subjective Progress Note Date: 01/06/21 HISTORY OF PRESENT ILLNESS This is a 80-year-old male patient of Dr. Campos and Dr. Mullins with past medical history of chronic persistent atrial fibrillation, diabetes mellitus type 2, hypertension, hyperlipidemia, history of pituitary tumor resection, obstructive sleep apnea on BiPAP, gastroesophageal reflux disease, benign prostatic hypertrophy. He should also has history of coronary artery disease status post PCI to the LAD in 2005, heart catheterization in October 2020 found severe triple-vessel disease, subsequently admitted to the hospital for elective coronary artery bypass grafting 12/16 for four-vessel bypass MORAN to LAD, left radial artery from the aorta to the first obtuse marginal artery, reverse saphenous vein graft from the aorta to the second diagonal artery, reverse saphenous vein graft from the aorta to the posterior descending artery, endoscopic harvesting of the left radial artery, endoscopic harvesting of the left greater saphenous vein from ankle to the groin, exclusion of the left atrial appendage. During his last admission, he remained in ICU,Until December 24,, and after he was transferred to [facility] for cardiac recovery program. He has chronic atrial fibrillation, diabetes mellitus type 2, hypertension, hyperlipidemia, history of pituitary gland resection, obstructive sleep apnea, BPH with urinary retention, and delirium.. At the time of discharge, he was on Coumadin and Singulair Cardizem CD lisinopril Tylenol, he was taken off atenolol Vytorin lisinopril Imdur aspirin and nitro. -He comes back to the emergency room 2 days later, from [facility], secondary to shortness of breath, and edema. She also has worsening of her liver issues, with no visible jaundice. On ER presentation, he has indwelling Barrow catheter, there is no fever, no focal deficit, chest pain, he has shortness of breath, no vomiting, no diarrhea, no melena. In the emergency room, EKG shows atrial fibrillation heart rate of 79, no significant change compared to 927 EKG, double basic count is 15, hemoglobin of 9, sodium of 131, BUN 62 creatinine 4.7, CO2 of 19 total bili of 7.3, AST 949 ALT 881, alkaline phosphatase 411, troponin is stagnant at 0.14, and 0.148. Lactic acid level was 2.1, INR is 3.3 ultrasound of the gallbladder, shows common bile duct is normal, liver is enlarged, otherwise no other pathologies noted. Chest x-ray shows bilateral pleural effusion, basilar pulmonary infiltrates, which slightly is worse compared to previous, mild heart failure is possible, cardiomegaly some change patient is admitted to ICU with consultation to critical care medicine Dr. Vásquez, and cardiology. Chest ultrasound is ordered CMV and hepatitis panels ordered, patient would need a CAT scan of the abdomen, to eval for spleen gallbladder, Tylenol is discontinued, Lipitor is discontinued check for haptoglobin, reticulocyte count, and iron studies to evaluate portal system. 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 INR is 3. Sodium 132, potassium 4.1, chloride 100, CO2 18, BUN 65 and creatinine 1.81, blood sugar 119. Total bilirubin 6.5, AST 493, ALT 663, alkaline phosphatase 360. INR is 3.0. Magnesium 2.6. Lipase 473. CMV nonreactive 2 draws. Hepatitis panel negative. Repeat chest x-ray reveals patchy perihilar and basilar infiltrates/atelectasis as well as pleural effusions persist without significant interval change. Dr. Cartagena has ordered for vitamin K 2.5 mg and repeat INR with plan for thoracentesis once INR is und er 2. Patient is also followed by cardiology and Lasix decreased to 40 mg IV daily. Echocardiogram reveals EF of 45-60% with moderate concentric left hypertrophy, LA is severely dilated, mild to moderate mitral regurgitation, mild tricuspid regurgitation. Patient denies having any shortness of breath at rest. He denies abdominal pain, no nausea. He has had good urine output around 35 mL per hour. 12/30: Patient underwent right sided thoracentesis this morning with Dr. Cartagena with removal of approximately 650 ML's of turbid fluid. Repeat chest x- ray following procedure showed no complications. Patient was on BiPAP during the night and currently on O2 by nasal cannula at 3 L with pulse ox of 97%. Blood pressure 101/64, heart rate 81, afebrile. Patient has been seen and followed by nephrology for acute kidney injury secondary to hypotension and hypoperfusion. Plan is to continue diuresis in the patient, hold MAURA inhibitor, check cortisol level, monitor I&O's. Midodrine was increased yesterday. Repeat blood work today reveals WBC 12.2, hemoglobin 9.9 and platelet count 312. INR this morning was 1.9. Sodium 128, potassium 4.7, chloride 95, CO2 21, BUN 71 and creatinine 2.11. Blood sugars running between 109 and 134. Repeat liver function tests reveal total bilirubin 6, AST 28, ALT 535, alkaline phosphatase 295. Magnesium 2.8. Cortisol level came back at 27. Patient will be transferred to the cardiac stepdown unit. 12/31: Patient remains in the intensive care unit, today resting in bed on BiPAP. Patient became hypotensive overnight and required levo fed and was transferred back to the intensive care unit. Levo fed is currently off. Repeat blood work reveals WBC 16.5, hemoglobin 10.4, platelet count 282. Sodium 125, potassium 5.8, BUN 77 and creatinine 2.75. AST 1302, ALT 987, alkaline phosphatase 236. INR 2.9. Patient is followed by multiple consultants including cardiology, pulmonary medicine, nephrology and cardiothoracic surgery. Patient has been reaching 1000 on incentive spirometry. CAT scan of the abdomen and pelvis reveals nonobstructive left nephrolithiasis. Left pleural effusion difficult to exclude basilar pneumonia or atelectasis. There may be a posterior dependent he will. Cardiac. Coronary artery disease. Repeat chest x-ray reveals stable bibasilar infiltrate and small left pleural effusion. Renal ultrasound reveals limited assessment of left kidney demonstrate no definite hydronephrosis or hydroureter lysis. No hydronephrosis on the right kidney 01/01: Patient remains in the intensive care unit, resting in chair on nasal oxygen and appears to be comfortable. Pulse ox is 99%, blood pressure 80/65 and he is on levo fed. Lopressor was decreased by nephrology. Heart rate is 106, afebrile. Repeat blood work reveals WBC 10.1, hemoglobin 10.3, platelet count 291. INR 2.7. Sodium 130, potassium 4.0, chloride 94, CO2 25, BUN 76 and creatinine 2.38. Calcium 7.7. Magnesium 2.8. AST 824, ALT 920, alkaline p hosphatase 210. Patient received calcium gluconate 1 g this morning. Chest x-ray reveals pleural parenchymal density left lower lobe persistent appears to be somewhat improved. 01/02: Patient remains in intensive care unit. He appears to be less jaundiced today. Urine is blood tinged. He states he is uncomfortable all over his body but no specific pain. He states he is skinny interrupted sleep throughout the night and melatonin increased. He continues not have appetite and Remeron added. Discussed with cardiothoracic surgery transitioning patient to eliquis although patient had episodes of nausea with this and to discuss other options, and also regard the posterior hemopericardium. Patient has been afebrile, heart rate 105, blood pressure 103/70, pulse ox 99% 2 L nasal cannula. Repeat blood work reveals WBC 10.8, hemoglobin 10.6, platelet count 251. Sodium 131, potassium 3.7, chloride 100, CO2 22, BUN 16 creatinine 1.41. Blood sugars are running between 105 and 144. Lactic acid 2.1. Calcium 7.8. Liver function tests are improving with total bilirubin 3.5, AST 449, ALT 684, alkaline phosphatase 194. LDH 1192. Lipase 302. 01/03: Patient evaluated this morning, remains in intensive care unit, patient is awake and alert, is currently on room air. Repeat chest x-ray shows pleural parenchymal lung base that is unchanged. Repeat blood work reveals hemoglobin 10.6, platelet count of 220, INR 3.1, sodium 132, BUN 58, creatinine 1.48, AST 319, ALT 578, Alk Phos 190. Liver function tests are improving. Urine culture showed Pseudomonas aeruginosa, he is on cefepime. Telemetry showing atrial fibrillation, he was started on xarelto yesterday for anticoagulation, and was held today for increase in INR. He was given calcium gluconate and albumin today and also a dose of Lasix Vital signs are heart rate 103, respiratory rate 13, blood pressure 92/72, 94% on room air. 01/04: Patient evaluated this morning, remains in the ICU, sitting up resting in the bedside recliner, patient is awake and alert. Labs show hemoglobin 10.5, platelets 221, INR 2, potassium 4.1, BUN 59, creatinine 1.57, total bilirubin 2.8, AST 188, ALT 457, alk phos 222, albumin 2.9. Telemetry still showing atrial fibrillation with an elevated rate, cardiology is following and is on amiodarone 400 mg twice a day. Patient continues to have problems with blood pressure and postural hypotension. Flomax was discontinued, urology consult appreciated. Recommends to continue with the Barrow catheter until he is more stabilized and ambulating, then we'll plan to remove the catheter and do a voiding trial. Pulmonary reviewed repeat chest x-ray from today and shows a moderate sized left sided pleural effusion, right-sided pleural effusion has recovered. Pulmonary considering possibly doing another thoracentesis on the left side. Patient does not require any pressors at this point. Patient still has extensive edema in the upper and lower extremities with signs of fluid overload, Lasix 40 mg IV ordered. He continues on cefepime for Pseudomonas aeruginosa in the urine. Oral intake continues to be poor, recently started on Remeron. 01/05: Patient was intubated last evening and was started on propofol, norepinephrine and was on amiodarone. Patient is currently on mechanical ventilation with tidal volume 400, FiO2 60, PEEP of 10. He is undergoing echocardiogram at this time which reported EF of 50-55% with moderate concentric left ventricular hypertrophy, no pericardial effusion.. He continues to have significant anasarca and edema. Heart rate is running in the low 100s with atrial fibrillation. Repeat blood work reveals WBC 17.3, hemoglobin 12, platelet count 185. INR is 1.8. Sodium 131, potassium 3.9, chloride 99, CO2 20, BUN 61 and creatinine 1.73. Blood sugars are running between 141 and 203. Total bilirubin 2.7, AST 89, ALT 300, alkaline phosphatase 201. Cortisol level LV. Chest x-ray reveals worsening left lower lobe infiltrate. Small to modera te pleural effusion may be worsening. Increased perihilar infiltrates more notably on the right. CT of the abdomen and pelvis with contrast revealed bilateral lower lobe pulmonary consolidation and pleural fluid. Cardiomegaly. Congestive heart failure is possible. Some loculated ascites fluid noted in the abdomen. No free air. No sign of mechanical bowel obstruction. Subcutaneous edema around the abdomen. 01/06 patient evaluated on 01/06 remains in the ICU intubated. continues to remain on assist control on FiO2 50% BP is improved from 10 to a respiratory rate of 22. Chest x-ray suggestive of pulmonary edema patient remains on Lasix drip at 10 mics per hour. Metolazone initiated at 5 mg daily. Patient continues to remain in atrial fibrillation continue amiodarone at 1 monique per minute. On sedation maintained with propofol. Patient continued to remain on norepinephrine definite 0.3 monique per KG per minute. Labs were reviewed patient's WBC worsened to 29.3 hemoglobin 10.6 increase in neutrophils. ABG obtained this from pH 7.42 pCO2 32, pO2 105 sodium 131 bicarb 18 BUN 15 and creatinine 1.9 lactic acid was 2.2 calcium 7.8 phosphorus 4.7 liver enzymes continued to do wntrend with AST 60 ALT [address] abdomen reviewed suggestive of severe anasarca change with third spacing severe lower lobe and inferior lingular consolidation suggestive of aspiration pneumonitis extensive edema that is changes involving the deeper plane of visualized upper thighs arm. Second concern showed bladder wall thickening representing chronic bladder wall hypertrophy and cystitis.. 5.9 cm noted. Infectious disease consulted the Zosyn added. No sign of bowel ischemia noted. Abdominal ultrasound suggestive of mild abdominal ascites with moderate right pleural effusion no obvious hydronephrosis, gallstones or biliary duct dilation noted infection noted. En teral feeding to be initiated today REVIEW OF SYSTEMS unable to obtain due to intubation PHYSICAL EXAMINATION Gen: This is a 80-year-old male. Patient is resting in ICU bed, intubated and on mechanical ventilation. HEENT: Head is atraumatic, normocephalic. Pupils equal, round. Sclerae is anicteric. Oral ET tube. NECK: Supple. No JVD. No lymphadenopathy. No thyromegaly. LUNGS: Diminished to the bilateral basis. No intercostal retractions. HEART: Irregular rate and rhythm. No murmur. ABDOMEN: Soft. Bowel sounds are present. No masses. No tenderness. Barrow catheter. EXTREMITIES: 3+ bilateral pedal edema. Scrotal edema with pitting edema involving the subcutaneous plane of the abdomen and back No calf tenderness. NEUROLOGICAL: Patient is intubated ASSESSMENT AND PLAN 1. Acute hypoxic respiratory failure secondary to fluid overload and pleural effusions and possible aspiration pneumonia. Intubation on 01/04. Patient is status post right-sided thoracentesis on 12/30 of 650 mL, continue Lasix oral 40 mg daily, monitor I&O and daily weights, monitor renal function and electrolytes. Zosyn initiated on 01/06. Infectious disease was consulted 2. Severe coagulopathy, on Coumadin, with worsening of transaminitis, with jaundice, suspect hepatobiliary obstruction, ischemic liver cirrhosis. Lipitor and Tylenol was discontinued and held. Patient placed on heparin drip per cardiology. 3. Acute kidney injury and chronic kidney disease stage II secondary to hypoperfusion, obstructive uropathy with balloon not in the bladder. Consult with nephrology appreciated. Avoid nephrotoxic agents. Barrow cath apparently was not in the bladder and has been replaced. 4. Metabolic acidosis secondary to acute kidney injury. 5. Coronary artery disease status post 4 vessel CABG 12/16. Continue current management per cardio thoracic surgery. Continue aspirin 81 mg daily, Lipitor on hold, Lopressor 12.5 mg twice daily 6. Chronic persistent atrial fibrillation. Heparin drip, amiodarone drip, Lopressor 12.5 mg twice daily. 7. Acute hypoxemic respiratory failure, intubation on 01/04, followed closely by critical care medicine and pulmonary. 8. Hypovolemic hyponatremia. Continue to monitor sodium. 9. Diabetes mellitus type 2. Continue with NovoLog scale before meals and at bedtime, blood sugar is controlled. 10. Hypertension. Patient is currently hypotensive on norepinephrine. Continue Lopressor. 11. Hyperlipidemia. Hold Lipitor. 12. Urinary retention. Maintain Barrow catheter. 13. History of pituitary gland resection. 14. Obstructive sleep apnea on BiPAP. 15. Gastroesophageal reflux disease. 16. 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 17. DVT prophylaxis. HA hose. 18. Postural hypotension. Flomax held. 19. GI prophylaxis. Protonix. 20 anasarca with pleural effusions scrotal edema on Lasix drip 10 mg per hour with metolazone at 5 mg by mouth daily 21 protein energy malnutrition. Low albumin Enteral feeding initiated DISCHARGE PLAN Most likely return to [facility] for subacute rehab. Objective - Vital Signs Vital signs: Vital Signs Temp 98.8 F 01/06/21 12:00 Pulse 88 01/06/21 13:00 Resp 22 01/06/21 13:00 BP 72/54 01/06/21 06:00 Pulse Ox 96 01/06/21 13:00 Intake & Output 01/05/21 01/06/21 01/06/21 18:59 06:59 18:59 Intake Total 420 1402.258 937.149 Output Total 685 780 460 Balance -265 622.258 477.149 Weight 99.6 kg 102.1 kg 103.4 kg Intake: IV 120 120 70 .9 @ 10mL/hr 120 120 70 Intake, IV Titration 300 1282.258 867.149 Amount Amiodarone 360 mg In 200 384.443 371.663 Dextrose 5% in Water 200 ml @ 1 MG/MIN 33.333 mls/ hr IV .Q6H BRENDA Rx#: [id number] Furosemide 100 mg In 160.166 100 Sodium Chloride 0.9% 90 ml @ 10 MG/HR 10 mls/hr IV .Q10H BRENDA Rx#: [id number] Heparin Sod,Pork in 0.45% 178 18.231 NaCl 25,000 unit In 0.45 % NaCl 1 250ml.bag @ 10. 04 UNITS/KG/HR 10 mls/hr IV .Q24H BRENDA Rx#: [id number] Norepinephrine 8 mg In 264.133 255.231 Sodium Chloride 0.9% 250 ml @ 0.05 MCG/KG/MIN 9. 549 mls/hr IV .Q24H BRENDA Rx#:[id number] Piperacillin-Tazobactam 3 200 .375 gm In Sodium Chloride 0.9% 100 ml @ 25 mls/hr IVPB Q8H BRENDA Rx#: [id number] propofoL 1,000 mg In 100 95.516 122.024 Empty Bag 1 bag @ Titrate IV .Q0M BRENDA Rx#: [id number] Output: Urine 685 780 460 Other: Voiding Method Indwelling Catheter Indwelling Catheter Indwelling Catheter ABP, PAP, CO, CI - Last Documented Arterial Blood Pressure 96/60 - Labs CBC & Chem 7: 01/06/21 03:42 01/06/21 03:42 Labs: Abnormal Lab Results - Last 24 Hours (Table) 01/05/21 01/05/21 01/05/21 Range/Units 17:35 17:53 18:32 WBC (3.8-10.6) k/uL RBC (4.30-5.90) m/uL Hgb (13.0-17.5) gm/dL Hct (39.0-53.0) % MCHC (31.0-37.0) g/dL RDW (11.5-15.5) % APTT (22.0-30.0) sec ABG pCO2 33 L (35-45) mmHg ABG HCO3 20 L (21-25) mmol/L ABG O2 Saturation 98.6 H (94-97) % Sodium (137-145) mmol/L Carbon Dioxide (22-30) mmol/L BUN (9-20) mg/dL Creatinine (0.66-1.25) mg/dL Glucose (74-99) mg/dL POC Glucose (mg/dL) 124 H (75-99) mg/dL Plasma Lactic Acid Juan 3.4 H* (0.7-2.0) mmol/L Calcium (8.4-10.2) mg/dL Phosphorus (2.5-4.5) mg/dL Total Bilirubin (0.2-1.3) mg/dL AST (17-59) U/L ALT (4-49) U/L Alkaline Phosphatase (38-126) U/L Total Protein (6.3-8.2) g/dL Albumin (3.5-5.0) g/dL 01/05/21 01/05/21 01/06/21 Range/Units 23:00 23:59 03:42 WBC 29.6 H (3.8-10.6) k/uL RBC 3.61 L (4.30-5.90) m/uL Hgb 10.8 L (13.0-17.5) gm/dL Hct 34.9 L (39.0-53.0) % MCHC 30.8 L (31.0-37.0) g/dL RDW 16.2 H (11.5-15.5) % APTT (22.0-30.0) sec ABG pCO2 (35-45) mmHg ABG HCO3 (21-25) mmol/L ABG O2 Saturation (94-97) % Sodium (137-145) mmol/L Carbon Dioxide (22-30) mmol/L BUN (9-20) mg/dL Creatinine (0.66-1.25) mg/dL Glucose (74-99) mg/dL POC Glucose (mg/dL) 226 H (75-99) mg/dL Plasma Lactic Acid Juan 3.2 H* (0.7-2.0) mmol/L Calcium (8.4-10.2) mg/dL Phosphorus (2.5-4.5) mg/dL Total Bilirubin (0.2-1.3) mg/dL AST (17-59) U/L ALT (4-49) U/L Alkaline Phosphatase (38-126) U/L Total Protein (6.3-8.2) g/dL Albumin (3.5-5.0) g/dL 01/06/21 01/06/21 01/06/21 Range/Units 03:42 03:42 03:43 WBC (3.8-10.6) k/uL RBC (4.30-5.90) m/uL Hgb (13.0-17.5) gm/dL Hct (39.0-53.0) % MCHC (31.0-37.0) g/dL RDW (11.5-15.5) % APTT 156.8 H* (22.0-30.0) sec ABG pCO2 (35-45) mmHg ABG HCO3 (21-25) mmol/L ABG O2 Saturation (94-97) % Sodium 131 L (137-145) mmol/L Carbon Dioxide 18 L (22-30) mmol/L BUN 59 H (9-20) mg/dL Creatinine 1.99 H (0.66-1.25) mg/dL Glucose 186 H (74-99) mg/dL POC Glucose (mg/dL) (75-99) mg/dL Plasma Lactic Acid Juan 2.8 H* (0.7-2.0) mmol/L Calcium 7.8 L (8.4-10.2) mg/dL Phosphorus (2.5-4.5) mg/dL Total Bilirubin 2.7 H (0.2-1.3) mg/dL AST 64 H (17-59) U/L ALT 226 H (4-49) U/L Alkaline Phosphatase 168 H (38-126) U/L Total Protein 4.6 L (6.3-8.2) g/dL Albumin 2.4 L (3.5-5.0) g/dL 01/06/21 01/06/21 01/06/21 Range/Units 05:00 12:45 13:39 WBC (3.8-10.6) k/uL RBC (4.30-5.90) m/uL Hgb (13.0-17.5) gm/dL Hct (39.0-53.0) % MCHC (31.0-37.0) g/dL RDW (11.5-15.5) % APTT (22.0-30.0) sec ABG pCO2 32 L (35-45) mmHg ABG HCO3 20 L (21-25) mmol/L ABG O2 Saturation 98.9 H (94-97) % Sodium (137-145) mmol/L Carbon Dioxide (22-30) mmol/L BUN (9-20) mg/dL Creatinine (0.66-1.25) mg/dL Glucose (74-99) mg/dL POC Glucose (mg/dL) (75-99) mg/dL Plasma Lactic Acid Juan 2.2 H* (0.7-2.0) mmol/L Calcium (8.4-10.2) mg/dL Phosphorus 4.7 H (2.5-4.5) mg/dL Total Bilirubin (0.2-1.3) mg/dL AST (17-59) U/L ALT (4-49) U/L Alkaline Phosphatase (38-126) U/L Total Protein (6.3-8.2) g/dL Albumin (3.5-5.0) g/dL Microbiology - Last 24 Hours (Table) 01/04/21 21:08 Gram Stain - Preliminary Sputum Sputum Culture - Preliminary 12/31/20 03:39 Blood Culture - Final Blood No Growth after 144 hours
[2021-01-06] MEDS: ASPIRIN 81 MG PO SCH (18:13)
[2021-01-06] MEDS: CHOLECALCIFEROL 25 MCG (1000 IU) TABLET PO SCH (18:13)
[2021-01-06] MEDS: CALCIUM CARBONATE 500 MG CHEWABLE PO SCH (18:13)
[2021-01-06] MEDS: ASCORBIC ACID 500 MG TAB PO SCH (18:13)
[2021-01-06 18:19] LABS: Glucose,Whole Blood 154 mg/dL (75-99)
[2021-01-06 18:19] LABS: Glucose,Whole Blood 182 mg/dL (75-99)
[2021-01-06] MEDS: MONTELUKAST 10 MG TAB PO SCH (20:48)
[2021-01-06] MEDS: LATANOPROST 0.005% OPHTH DROPS 2.5 ML BTL BOTH EYES SCH (20:48)
[2021-01-06] MEDS: SENNOSIDES-DOCUSATE SODIUM 1 EACH TAB PO SCH (20:48)
--- NOTE | 2021-01-06 23:04 | P.CONS ---
History of Present Illness - Reason for Consult Consult date: 01/06/21 Leukocytosis Requesting physician: Aniceto Johnson - Chief Complaint shortness of breath x days - History of Present Illness History of present illness : Patient is a 80-year male with status post recent coronary bypass grafting patient was subsequently sent to [place] for rehabilitation patient has been readmitted to the hospital about 10 days ago for evaluation of increasing shortness of breath that has been progressively getting worse patient ended up getting intubated patient was subsequently stabilized for his congestive heart failure and got extubated, however 2 days ago the patient did have worsening of his respiratory status and rapidly intubated patient was noticed to be significantly hypotensive requiring placement of the right radial arterial line patient did have blood cultures obtained yesterday has been negative so far sputum obtained on the of her pending patient did have sputum on 01/03/2021 which came back positive for Pseudomonas aeruginosa sensitive to Zosyn patient is currently intubated on the vent he is mildly hypothermic and is requiring pressor support to maintain his blood pressure no significant purulent secretion through the ET or diarrhea was reported by the nursing staff, the patient chest wall incision as well as the vein graft sites looks clean with no wound or any redness patient currently do have a right sided PICC line which was just placed 2 days ago and no evidence of any cellulitis at his previous IV sites patient is currently being treated with Zosyn patient was noticed to have a worsening of his white counts of 29.6 today that has prompted this infectious disease consultation patient also have a CT of abdominal pelvis completed this afternoon which did show some evidence of pneumonia with lower lobe consolidation and also have a borderline distention of the gallbladder 4 cm wide although this formation has been obtained from review the chart of nursing staff as the patient is currently elevated liver enzymes avoid any history Review of system: Positive point has been mentioned in HPI complete review could not be obtained because of underlying mental status Past medical history : Reviewed, documented below Past surgical history : Reviewed, documented below Social history: Reviewed, documented below Medications: Reviewed, as documented below EXAMINATION: Vital sigans= Reviewed and documented below GENERAL DESCRIPTION: Elderly male intubated on the vent. No tachypnea or a ccessory muscle of respiration use. HEENT: Shows Pallor , no scleral icterus. Oral mucous membrane is dry. NECK: Trachea central, no thyromegaly. LUNGS: Unlabored breathing. Decreased breath in the base. No wheeze or crackle. HEART: S1, S2, regular rate and rhythm. ABDOMEN: Soft, no tenderness , guarding or rigidity EXTREMITIES: No edema of feet. SKIN: No rash, no masses palpable. NEUROLOGICAL: The patient is sedated on the vent LABS AND RADIOLOGY: Reviewed results see below Assessment : 1-patient with sepsis in this patient who did have a hypotension requiring pressor support did have elevated white count and hypothermia source more likely pneumonia possible aspiration/gram-negative however the patient also has abnormality seen on the gallbladder underlying intra-abdominal source letter excluded, patient also has been exposed antibiotics steroids for component of possible oropharyngeal exudates and anicteric sclerae patient is on amiodarone therapy we will continue daily use of Diflucan Plan: 1-we will follow up on his repeat blood and sputum cultures urine culture has been requested 2-continue with the Zosyn 3-add Eraxis We will follow on clinical condition and cultures to further adjust medication if needed Thank you for this consultation we will follow the patient along with you Past Medical History Past Medical History: Atrial Fibrillation, Coronary Artery Disease (CAD), Diabetes Mellitus, Hyperlipidemia, Hypertension, Prostate Disorder, Sleep Apnea/CPAP/BIPAP History of Any Multi-Drug Resistant Organisms: None Reported Past Surgical History: Coronary Bypass/CABG, Heart Catheterization With Stent Additional Past Surgical History / Comment(s): pitutary tumor removed; PCI to the LAD in 2005; 4 vessel CABG 12/16/2020 Past Anesthesia/Blood Transfusion Reactions: No Reported Reaction Additional Past Anesthesia/Blood Transfusion Reaction / Comm: no hx blood transfusion Date of Last Stent Placement:: 2005 Smoking Status: Never smoker - Past Family History Father Family Medical History: Congestive Heart Failure (CHF), Coronary Artery Disease (CAD), Myocardial Infarction ([place]) Additional Family Medical History / Comment(s): Premature coronary artery disease, CABG Mother Additional Family Medical History / Comment(s): Depression, committed suicide Medications and Allergies Home Medications Medication Instructions Recorded Confirmed Type Ascorbic Acid [Vitamin C] 500 mg PO DAILY@1700 04/29/15 12/27/20 History Cholecalciferol [Vitamin D3 (25 25 mcg PO DAILY@1700 04/29/15 12/27/20 History Mcg = 1000 Iu)] Esomeprazole Magnesium [NexIUM] 40 mg PO DAILY@0600 04/29/15 12/27/20 History Warfarin [Coumadin] 2.5 mg PO DIRECTED 04/29/15 12/27/20 History Calcium Carbonate [Calcium] 300 mg PO DAILY@1700 04/30/16 12/27/20 History Diltiazem Cd [Cardizem CD] 120 mg PO DAILY@0800 06/10/20 12/27/20 History Latanoprost/Pf [Latanoprost 0.005% 1 drop BOTH EYES HS@209906/10/20 12/27/20 History Eye Drop] Montelukast [Singulair] 10 mg PO HS@209906/10/20 12/27/20 History Warfarin [Coumadin] 5 mg PO DIRECTED 06/10/20 12/27/20 History Acetaminophen Tab [Tylenol] 650 mg PO Q4HR PRN tab 12/25/20 12/27/20 Rx lisinopriL [Zestril] 5 mg PO DAILY@1200 tab 12/25/20 12/27/20 Rx Aspirin 81 mg PO DAILY@1700 12/27/20 12/27/20 History Atorvastatin [Lipitor] 40 mg PO HS@209912/27/20 12/27/20 History INSULIN ASPART (NovoLOG) [NovoLOG See Protocol SQ ACHS 12/27/20 12/27/20 History (formulary)] Ipratropium-Albuterol Nebulize 3 ml INHALATION RT-Q2H PRN 12/27/20 12/27/20 History [Duoneb 0.5 mg-3 mg/3 ml Soln] Ipratropium-Albuterol Nebulize 3 ml INHALATION RT-Q6H 12/27/20 12/27/20 History [Duoneb 0.5 mg-3 mg/3 ml Soln] Magnesium Hydroxide [Milk of 7,200 mg PO DAILY PRN 12/27/20 12/27/20 History Magnesia Concentrate] Metoprolol Tartrate [Lopressor] 75 mg PO BID@0800,1700 12/27/20 12/27/20 History Midodrine HCl 5 mg PO TID@0800,1200,1700 12/27/20 12/27/20 History Na Phos,M-B/Na Phos,Di-Ba [Fleet 133 ml RECTAL DAILY PRN 12/27/20 12/27/20 History Adult] Sennosides-Docusate Sodium 2 tab PO HS PRN 12/27/20 12/27/20 History [Senokot-S] Tamsulosin [Flomax] 0.4 mg PO DAILY@0800 12/27/20 12/27/20 History bisacodyL [Dulcolax] 10 mg RECTAL DAILY PRN 12/27/20 12/27/20 History Allergies Allergy/AdvReac Type Severity Reaction Status Date / Time No Known Allergies Allergy Verified 12/27/20 19:11 Physical Exam Vitals: Vital Signs Temp Pulse Resp BP Pulse Ox 01/06/21 10:00 97 22 98 01/06/21 09:00 101 H 7 L 97 01/06/21 08:00 98.3 F 92 22 100 01/06/21 07:00 101 H 23 100 01/06/21 06:45 107 H 22 100 01/06/21 06:30 99 23 100 01/06/21 06:15 104 H 22 99 01/06/21 06:00 109 H 20 72/54 100 01/06/21 05:45 109 H 25 H 100 01/06/21 05:30 98 22 99 01/06/21 05:15 116 H 24 100 01/06/21 05:00 105 H 24 100 01/06/21 04:45 96 24 100 01/06/21 04:30 101 H 25 H 100 01/06/21 04:15 91 26 H 100 01/06/21 04:00 97.9 F 103 H 25 H 100 01/06/21 03:45 92 22 100 01/06/21 03:30 103 H 22 99 01/06/21 03:15 84 22 97 01/06/21 03:00 106 H 22 96 01/06/21 02:45 90 24 96 01/06/21 02:30 105 H 23 94 L 01/06/21 02:15 89 23 93 L 01/06/21 02:00 94 26 H 94 L 01/06/21 01:45 86 22 98 01/06/21 01:30 103 H 22 98 01/06/21 01:15 86 22 99 01/06/21 01:00 92 22 96 01/06/21 00:45 106 H 22 72/54 97 01/06/21 00:30 100 24 98 01/06/21 00:15 94 22 98 01/06/21 00:00 97.9 F 104 H 22 96 01/05/21 23:45 108 H 22 97 01/05/21 23:30 95 23 98 01/05/21 23:27 94 22 97 01/05/21 23:15 87 22 97 01/05/21 23:00 98 22 98 01/05/21 22:45 89 22 98 01/05/21 22:30 100 22 97 01/05/21 22:15 104 H 23 98 01/05/21 22:00 92 22 97 01/05/21 21:45 101 H 24 98 01/05/21 21:30 86 23 97 01/05/21 21:15 90 24 98 01/05/21 21:00 86 22 98 01/05/21 20:45 88 25 H 98 01/05/21 20:30 81 24 98 01/05/21 20:15 97 23 97 01/05/21 20:00 96.3 F L 101 H 17 100 01/05/21 19:00 93 19 100 01/05/21 18:00 98 17 98 01/05/21 17:00 93 19 72/54 90 L 01/05/21 16:08 93 01/05/21 16:00 98.0 F 92 18 100 01/05/21 15:58 93 01/05/21 15:00 87 18 100 01/05/21 14:00 93 22 72/54 100 01/05/21 13:00 103 H 16 100 01/05/21 12:25 102 H 01/05/21 12:12 96 01/05/21 12:00 97.7 F 94 17 100 01/05/21 11:00 94 20 72/54 99 Intake and Output 01/05/21 01/06/21 01/06/21 22:59 06:59 14:59 Intake Total 442.770 999.488 251.007 Output Total 655 470 220 Balance -212.230 529.488 31.007 Intake: IV 80 80 40 .9 @ 10mL/hr 80 80 40 Intake, IV Titration 362.770 919.488 211.007 Amount Amiodarone 360 mg In 184.443 200 192.776 Dextrose 5% in Water 200 ml @ 1 MG/MIN 33.333 mls/ hr IV .Q6H [facility] Rx#: [id number] Furosemide 100 mg In 76.833 83.333 Sodium Chloride 0.9% 90 ml @ 10 MG/HR 10 mls/hr IV .Q10H [facility] Rx#: [id number] Heparin Sod,Pork in 0.45% 178 18.231 NaCl 25,000 unit In 0.45 % NaCl 1 250ml.bag @ 10. 04 UNITS/KG/HR 10 mls/hr IV .Q24H [facility] Rx#: [id number] Norepinephrine 8 mg In 264.133 Sodium Chloride 0.9% 250 ml @ 0.05 MCG/KG/MIN 9. 549 mls/hr IV .Q24H [facility] Rx#:[id number] Piperacillin-Tazobactam 3 100 100 .375 gm In Sodium Chloride 0.9% 100 ml @ 25 mls/hr IVPB Q8H [facility] Rx#: [id number] propofoL 1,000 mg In 1.494 94.022 Empty Bag 1 bag @ Titrate IV .Q0M [facility] Rx#: [id number] Output: Urine 655 470 220 Other: Voiding Method Indwelling Catheter Indwelling Catheter Indwelling Catheter Weight 102.1 kg 103.4 kg ABP, PAP, CO, CI - Last 8 Hours Arterial Blood Pressure 88/56 Arterial Blood Pressure 83/57 Arterial Blood Pressure 94/58 Arterial Blood Pressure 97/63 Arterial Blood Pressure 93/63 Arterial Blood Pressure 97/66 Arterial Blood Pressure 84/57 Arterial Blood Pressure 93/62 Arterial Blood Pressure 100/62 Arterial Blood Pressure 102/64 Arterial Blood Pressure 98/64 Arterial Blood Pressure 104/64 Arterial Blood Pressure 104/66 Arterial Blood Pressure 97/62 Arterial Blood Pressure 92/61 Arterial Blood Pressure 293/293 Arterial Blood Pressure 86/58 Arterial Blood Pressure 86/56 Arterial Blood Pressure 92/58 Results CBC & Chem 7: 01/06/21 03:42 01/06/21 03:42 Labs: Abnormal Lab Results - Last 24 Hours (Table) 01/05/21 01/05/21 01/05/21 Range/Units 11:42 17:35 17:53 WBC (3.8-10.6) k/uL RBC (4.30-5.90) m/uL Hgb (13.0-17.5) gm/dL Hct (39.0-53.0) % MCHC (31.0-37.0) g/dL RDW (11.5-15.5) % APTT (22.0-30.0) sec ABG pCO2 (35-45) mmHg ABG HCO3 (21-25) mmol/L ABG O2 Saturation (94-97) % Sodium (137-145) mmol/L Carbon Dioxide (22-30) mmol/L BUN (9-20) mg/dL Creatinine (0.66-1.25) mg/dL Glucose (74-99) mg/dL POC Glucose (mg/dL) 125 H 124 H (75-99) mg/dL Plasma Lactic Acid Juan 3.4 H* (0.7-2.0) mmol/L Calcium (8.4-10.2) mg/dL Total Bilirubin (0.2-1.3) mg/dL AST (17-59) U/L ALT (4-49) U/L Alkaline Phosphatase (38-126) U/L Total Protein (6.3-8.2) g/dL Albumin (3.5-5.0) g/dL 01/05/21 01/05/21 01/05/21 Range/Units 18:32 23:00 23:59 WBC (3.8-10.6) k/uL RBC (4.30-5.90) m/uL Hgb (13.0-17.5) gm/dL Hct (39.0-53.0) % MCHC (31.0-37.0) g/dL RDW (11.5-15.5) % APTT (22.0-30.0) sec ABG pCO2 33 L (35-45) mmHg ABG HCO3 20 L (21-25) mmol/L ABG O2 Saturation 98.6 H (94-97) % Sodium (137-145) mmol/L Carbon Dioxide (22-30) mmol/L BUN (9-20) mg/dL Creatinine (0.66-1.25) mg/dL Glucose (74-99) mg/dL POC Glucose (mg/dL) 226 H (75-99) mg/dL Plasma Lactic Acid Juan 3.2 H* (0.7-2.0) mmol/L Calcium (8.4-10.2) mg/dL Total Bilirubin (0.2-1.3) mg/dL AST (17-59) U/L ALT (4-49) U/L Alkaline Phosphatase (38-126) U/L Total Protein (6.3-8.2) g/dL Albumin (3.5-5.0) g/dL 01/06/21 01/06/21 01/06/21 Range/Units 03:42 03:42 03:42 WBC 29.6 H (3.8-10.6) k/uL RBC 3.61 L (4.30-5.90) m/uL Hgb 10.8 L (13.0-17.5) gm/dL Hct 34.9 L (39.0-53.0) % MCHC 30.8 L (31.0-37.0) g/dL RDW 16.2 H (11.5-15.5) % APTT (22.0-30.0) sec ABG pCO2 (35-45) mmHg ABG HCO3 (21-25) mmol/L ABG O2 Saturation (94-97) % Sodium 131 L (137-145) mmol/L Carbon Dioxide 18 L (22-30) mmol/L BUN 59 H (9-20) mg/dL Creatinine 1.99 H (0.66-1.25) mg/dL Glucose 186 H (74-99) mg/dL POC Glucose (mg/dL) (75-99) mg/dL Plasma Lactic Acid Juan 2.8 H* (0.7-2.0) mmol/L Calcium 7.8 L (8.4-10.2) mg/dL Total Bilirubin 2.7 H (0.2-1.3) mg/dL AST 64 H (17-59) U/L ALT 226 H (4-49) U/L Alkaline Phosphatase 168 H (38-126) U/L Total Protein 4.6 L (6.3-8.2) g/dL Albumin 2.4 L (3.5-5.0) g/dL 01/06/21 01/06/21 Range/Units 03:43 05:00 WBC (3.8-10.6) k/uL RBC (4.30-5.90) m/uL Hgb (13.0-17.5) gm/dL Hct (39.0-53.0) % MCHC (31.0-37.0) g/dL RDW (11.5-15.5) % APTT 156.8 H* (22.0-30.0) sec ABG pCO2 32 L (35-45) mmHg ABG HCO3 20 L (21-25) mmol/L ABG O2 Saturation 98.9 H (94-97) % Sodium (137-145) mmol/L Carbon Dioxide (22-30) mmol/L BUN (9-20) mg/dL Creatinine (0.66-1.25) mg/dL Glucose (74-99) mg/dL POC Glucose (mg/dL) (75-99) mg/dL Plasma Lactic Acid Juan (0.7-2.0) mmol/L Calcium (8.4-10.2) mg/dL Total Bilirubin (0.2-1.3) mg/dL AST (17-59) U/L ALT (4-49) U/L Alkaline Phosphatase (38-126) U/L Total Protein (6.3-8.2) g/dL Albumin (3.5-5.0) g/dL Microbiology - Last 24 Hours (Table) 01/04/21 21:08 Gram Stain - Preliminary Sputum Sputum Culture - Preliminary 12/31/20 03:39 Blood Culture - Final Blood No Growth after 144 hours
[2021-01-06] MEDS ORDERED: ANIDULAFUNGIN 200 MG in SODIUM CHLORIDE 0.9% 200 ML IVPB ONE (23:15)
[2021-01-06 23:40] LABS: Glucose,Whole Blood 205 mg/dL (75-99)
[2021-01-07] MEDS: FUROSEMIDE 100 MG in SODIUM CHLORIDE 0.9% 90 ML IV SCH ×3 (00:31→18:56)
[2021-01-07 04:08] LABS: Anisocytosis Slight; HCT 34.9 % (39.0-53.0); HGB 10.8 gm/dL (13.0-17.5); Hypochromasia Marked; MCH 29.8 pg (25.0-35.0); MCHC 30.9 g/dL (31.0-37.0); MCV 96.2 fL (80.0-100.0); Macrocytosis Slight; Mean Platelet Volume 8.9; Platelet Count 161 k/uL (150-450); Poikilocytosis Marked; RBC 3.63 m/uL (4.30-5.90); RDW 16.3 % (11.5-15.5); WBC 28.5 k/uL (3.8-10.6)
[2021-01-07 04:08] LABS: ABG Base Excess -2.6 mmol/L; ABG HCO3 21 mmol/L (21-25); ABG Oxygen Saturation 86.9 % (94-97); ABG PCO2 33 mmHg (35-45); ABG PH 7.42 (7.35-7.45); Allen Test Performed? Yes
[2021-01-07 04:12] LABS: ABG PO2 55 mmHg (83-108)
[2021-01-07 04:41] LABS: INR 3.1 (<1.2); Partial Thromboplastin Time 75.9 sec (22.0-30.0)
[2021-01-07] MEDS: AMIODARONE 360 MG in DEXTROSE 5% IN WATER 200 ML IV SCH ×6 (04:41→14:42)
[2021-01-07] MEDS: NOREPINEPHRINE 8 MG in SODIUM CHLORIDE 0.9% 250 ML IV SCH ×2 (04:42→08:00)
[2021-01-07] MEDS: PIPERACILLIN-TAZOBACTAM 3.375 GM in SODIUM CHLORIDE 0.9% 100 ML IVPB SCH ×3 (04:45→20:39)
[2021-01-07 05:34] LABS: Albumin 2.4 g/dL (3.5-5.0); Calcium 7.8 mg/dL (8.4-10.2); Potassium 3.4 mmol/L (3.5-5.1); Total Bilirubin 2.5 mg/dL (0.2-1.3); Total Protein 4.6 g/dL (6.3-8.2)
[2021-01-07] MEDS: INSULIN ASPART (NovoLOG) 100 UNIT/ML VIAL SQ SCH ×3 (06:27→18:40)
[2021-01-07] MEDS: IPRATROPIUM-ALBUTEROL 3 ML NEB INHALATION SCH ×4 (07:29→20:25)
--- NOTE | 2021-01-07 08:33 | XR ---
EXAMINATION TYPE: XR chest 1V portable DATE OF EXAM: 01/07/2021 COMPARISON: 01/06/2021 HISTORY: SOB, Follow Up FINDINGS: Indwelling tubes and catheters are unchanged. Patchy perihilar and basilar infiltrates and effusions persist. Stable appearance of the cardio-mediastinal structures at this time. Pleural effusion unchanged. IMPRESSION: 1. Stable portable chest. Clinical correlation and follow up until resolution is recommended.
--- NOTE | 2021-01-07 09:07 | P.PN ---
Subjective Progress Note Date: 01/07/21 Principal diagnosis: Shortness of breath, bilateral pleural effusions, elevated LFTs, YVETTE. 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 Remains intubated and sedated on mechanical ventilation. He did have decreased oxygen saturation this morning, FiO2 increased to 70%. Remains on IV amiodarone, continuous Lasix drip, heparin drip, propofol for sedation, and IV Levophed. Remains afebrile, WBC slightly less than yesterday, lactic acid down to 1.9, continues on antibiotics per infectious disease recommendations. Remains in atrial fibrillation, rate in the high 90s to low 100 100s. Trickle tube feedings started yesterday. Urine output has increased since initiation of continuous IV Lasix drip. Patient has had multiple scans of his abdomen, most recent was CT yesterday afternoon demonstrating mild abdominopelvic ascites and small bilateral pleural effusions, lower lobe and inferior lingular consolidation suspicious for aspiration pneumonitis, and continued severe anasarca. updated yesterday by Dr. Edmond. Objective - Vital Signs Vital signs: Vital Signs Temp 98.3 F 01/07/21 08:00 Pulse 105 H 01/07/21 08:00 Resp 20 01/07/21 08:00 BP 72/54 01/06/21 06:00 Pulse Ox 95 01/07/21 08:00 Intake & Output 01/06/21 01/07/21 01/07/21 18:59 06:59 18:59 Intake Total 222.411 9815.003 60 Output Total 835 1150 325 Balance 152.149 529.003 -265 Weight 103.4 kg Intake: IV 120 120 20 .9 @ 10mL/hr 120 120 20 Intake, IV Titration 915.270 1524.003 Amount Amiodarone 360 mg In 371.663 200 Dextrose 5% in Water 200 ml @ 1 MG/MIN 33.333 mls/ hr IV .Q6H [facility] Rx#: [id number] Anidulafungin 200 mg In 200 Sodium Chloride 0.9% 200 ml @ 84 mls/hr IVPB ONCE ONE Rx#:[id number] Furosemide 100 mg In 100 92.5 Sodium Chloride 0.9% 90 ml @ 10 MG/HR 10 mls/hr IV .Q10H [facility] Rx#: [id number] Heparin Sod,Pork in 0.45% 18.231 132.527 NaCl 25,000 unit In 0.45 % NaCl 1 250ml.bag @ 10. 04 UNITS/KG/HR 10 mls/hr IV .Q24H [facility] Rx#: [id number] Norepinephrine 8 mg In 255.231 516 Sodium Chloride 0.9% 250 ml @ 0.05 MCG/KG/MIN 9. 549 mls/hr IV .Q24H [facility] Rx#:[id number] Piperacillin-Tazobactam 3 100 .375 gm In Sodium Chloride 0.9% 100 ml @ 25 mls/hr IVPB Q8H [facility] Rx#: [id number] propofoL 1,000 mg In 122.024 77.976 Empty Bag 1 bag @ Titrate IV .Q0M [facility] Rx#: [id number] Tube Feeding 240 40 Output: Urine 835 1150 325 Other: Voiding Method Indwelling Catheter Indwelling Catheter ABP, PAP, CO, CI - Last Documented Arterial Blood Pressure 99/58 - Exam CONSTITUTIONAL: Currently sedated and mechanically ventilated, in no acute distress RESPIRATORY: Lungs sounds diminished bilaterally with coarse breath sounds in the bases. Respirations even, nonlabored mechanical ventilation. Currently settings assist control mode, FiO2 70%, PEEP 8, tidal volume 400, respiratory rate 22 CARDIOVASCULAR: S1, S2 present. Irregular rate and rhythm, atrial fibrillation on telemetry with rate in the high 90s to low 100s. Sternum stable. Palpable peripheral pulses bilaterally. Generalized edema present. Heart hugger, antibolism stockings, SCDs present. GASTROINTESTINAL: Abdomen soft, nontender, slightly distended. Hypoactive bowel sounds present 4 quadrants with tympany noted with percussion. Tube feedings infusing 20 mL per hour with minimal residual per nursing. Positive flatus noted during bath this morning per nursing GENITOURINARY: Barrow present draining yellow urine. Output overnight 75-125 mL per hour, 1985 mL in the last 24 hours INTEGUMENTARY: Skin is warm and dry with evidence of good perfusion. Anterior chest incision well approximated NEUROLOGIC: Currently sedated with propofol, does withdraw to painful stimuli INVASIVE LINES AND TUBES: Left midline IV, right PICC line, right radial arterial line present - Allied health notes Allied health notes reviewed: nursing - Labs CBC & Chem 7: 01/07/21 03:54 01/07/21 03:54 Labs: Abnormal Lab Results - Last 24 Hours (Table) 01/06/21 01/06/21 01/06/21 Range/Units 12:45 13:05 13:39 WBC (3.8-10.6) k/uL RBC (4.30-5.90) m/uL Hgb (13.0-17.5) gm/dL Hct (39.0-53.0) % MCHC (31.0-37.0) g/dL RDW (11.5-15.5) % PT (9.0-12.0) sec INR (<1.2) APTT 65.3 H (22.0-30.0) sec ABG pCO2 (35-45) mmHg ABG pO2 (83-108) mmHg ABG O2 Saturation (94-97) % Sodium (137-145) mmol/L Potassium (3.5-5.1) mmol/L Carbon Dioxide (22-30) mmol/L BUN (9-20) mg/dL Creatinine (0.66-1.25) mg/dL Glucose (74-99) mg/dL POC Glucose (mg/dL) (75-99) mg/dL Plasma Lactic Acid Juan 2.2 H* (0.7-2.0) mmol/L Calcium (8.4-10.2) mg/dL Phosphorus (2.5-4.5) mg/dL Total Bilirubin (0.2-1.3) mg/dL ALT (4-49) U/L Alkaline Phosphatase (38-126) U/L Total Protein (6.3-8.2) g/dL Albumin (3.5-5.0) g/dL Procalcitonin 5.12 H (0.02-0.09) ng/mL 01/06/21 01/06/21 01/06/21 Range/Units 13:39 18:15 18:17 WBC (3.8-10.6) k/uL RBC (4.30-5.90) m/uL Hgb (13.0-17.5) gm/dL Hct (39.0-53.0) % MCHC (31.0-37.0) g/dL RDW (11.5-15.5) % PT (9.0-12.0) sec INR (<1.2) APTT (22.0-30.0) sec ABG pCO2 (35-45) mmHg ABG pO2 (83-108) mmHg ABG O2 Saturation (94-97) % Sodium (137-145) mmol/L Potassium (3.5-5.1) mmol/L Carbon Dioxide (22-30) mmol/L BUN (9-20) mg/dL Creatinine (0.66-1.25) mg/dL Glucose (74-99) mg/dL POC Glucose (mg/dL) 182 H 154 H (75-99) mg/dL Plasma Lactic Acid Juan (0.7-2.0) mmol/L Calcium (8.4-10.2) mg/dL Phosphorus 4.7 H (2.5-4.5) mg/dL Total Bilirubin (0.2-1.3) mg/dL ALT (4-49) U/L Alkaline Phosphatase (38-126) U/L Total Protein (6.3-8.2) g/dL Albumin (3.5-5.0) g/dL Procalcitonin (0.02-0.09) ng/mL 01/06/21 01/07/21 01/07/21 Range/Units 23:38 03:54 03:54 WBC 28.5 H (3.8-10.6) k/uL RBC 3.63 L (4.30-5.90) m/uL Hgb 10.8 L (13.0-17.5) gm/dL Hct 34.9 L (39.0-53.0) % MCHC 30.9 L (31.0-37.0) g/dL RDW 16.3 H (11.5-15.5) % PT (9.0-12.0) sec INR (<1.2) APTT (22.0-30.0) sec ABG pCO2 (35-45) mmHg ABG pO2 (83-108) mmHg ABG O2 Saturation (94-97) % Sodium 131 L (137-145) mmol/L Potassium 3.4 L (3.5-5.1) mmol/L Carbon Dioxide 19 L (22-30) mmol/L BUN 60 H (9-20) mg/dL Creatinine 2.22 H (0.66-1.25) mg/dL Glucose 167 H (74-99) mg/dL POC Glucose (mg/dL) 205 H (75-99) mg/dL Plasma Lactic Acid Juan (0.7-2.0) mmol/L Calcium 7.8 L (8.4-10.2) mg/dL Phosphorus (2.5-4.5) mg/dL Total Bilirubin 2.5 H (0.2-1.3) mg/dL ALT 180 H (4-49) U/L Alkaline Phosphatase 197 H (38-126) U/L Total Protein 4.6 L (6.3-8.2) g/dL Albumin 2.4 L (3.5-5.0) g/dL Procalcitonin (0.02-0.09) ng/mL 01/07/21 01/07/21 Range/Units 03:54 04:00 WBC (3.8-10.6) k/uL RBC (4.30-5.90) m/uL Hgb (13.0-17.5) gm/dL Hct (39.0-53.0) % MCHC (31.0-37.0) g/dL RDW (11.5-15.5) % PT 30.0 H (9.0-12.0) sec INR 3.1 H (<1.2) APTT 75.9 H (22.0-30.0) sec ABG pCO2 33 L (35-45) mmHg ABG pO2 55 L* (83-108) mmHg ABG O2 Saturation 86.9 L (94-97) % Sodium (137-145) mmol/L Potassium (3.5-5.1) mmol/L Carbon Dioxide (22-30) mmol/L BUN (9-20) mg/dL Creatinine (0.66-1.25) mg/dL Glucose (74-99) mg/dL POC Glucose (mg/dL) (75-99) mg/dL Plasma Lactic Acid Juan (0.7-2.0) mmol/L Calcium (8.4-10.2) mg/dL Phosphorus (2.5-4.5) mg/dL Total Bilirubin (0.2-1.3) mg/dL ALT (4-49) U/L Alkaline Phosphatase (38-126) U/L Total Protein (6.3-8.2) g/dL Albumin (3.5-5.0) g/dL Procalcitonin (0.02-0.09) ng/mL Microbiology - Last 24 Hours (Table) 01/06/21 04:00 Gram Stain - Preliminary Sputum Sputum Culture - Preliminary 01/05/21 17:35 Blood Culture - Preliminary Blood No Growth after 24 hours 01/04/21 21:08 Gram Stain - Preliminary Sputum Sputum Culture - Preliminary 12/31/20 03:39 Blood Culture - Final Blood No Growth after 144 hours - Imaging and Cardiology Chest x-ray: report reviewed, image reviewed Assessment and Plan Assessment: 1. Shortness of breath, improved 2. Elevated LFTs, likely from hepatic congestion secondary to heart failure, down trending 3. Bilateral pleural effusions, drained right 650 mL, left 1200 mL 12/30/20 4. YVETTE, possibly from obstructive uropathy 5. Coronary artery disease status post PCI to the LAD in 2005 and subsequent 4 vessel CABG on 12/16/2020 6. Previously preserved left ventricular function, mildly impaired left ventricular systolic function with EF 45-50% on TTE 12/28/20, 50-55% on TTE 01/05/2021 7. Chronic atrial fibrillation on Coumadin for anticoagulation with supratherapeutic INR on admission, status post exclusion of the left atrial appendage 8. History of hypertension, currently on IV levo for hypotension 9. History of hyperlipidemia, treated 10. Diet controlled diabetes, recent hemoglobin A1c 6.2% 11. Obstructive sleep apnea on home CPAP, was not on at [facility] 12. Previous pituitary tumor 13. Never smoker, preoperative FEV1 91% of predicted 14. Prior daily wine consumption 15. 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 Acute hypoxemic respiratory failure, likely from fluid overload, requiring intubation and mechanical ventilation 01/04/2021 17. Metabolic acidosis 18. Urinary tract infection, urine culture positive for pseudomonas aeruginosa Plan: 1. Continue aspirin, low-dose beta junito. Hold statin until liver enzymes returned to normal 2. Continue IV amiodarone per recommendations from a cardiology, continue low intensity IV heparin 3. Wean levo as tolerated, continue midodrine 4. Mechanical ventilator management per pulmonology 5. IV antibiotics per infectious disease recommendations 6. Will monitor daily labs and x-rays. Will give 1 gm calcium gluconate. 7. Avoid nephrotoxins, appreciate nephrology recommendations, IV Lasix per nephrology 8. Continue sternal precautions 9. Continue tube feedings per dietary recommendations 10. Keep Barrow catheter in place per urologist recommendations. 11. GI and DVT prophylaxis 12. Medical management of other comorbidities per primary care service 13. More recommendations to follow Time with Patient: Greater than 30
[2021-01-07] MEDS: METOPROLOL TARTRATE 12.5 MG TAB PO SCH ×2 (09:30→20:39)
[2021-01-07] MEDS: MIDODRINE 5 MG TAB PO SCH ×3 (09:30→16:49)
[2021-01-07] MEDS: PANTOPRAZOLE 40 MG/10 ML VIAL IVP SCH (09:30)
[2021-01-07] MEDS: metOLazone 5 MG TAB PO SCH (09:30)
[2021-01-07] MEDS: POTASSIUM BICARBONATE/CIT AC 20 MEQ TABLET.EFF NG-TUBE SCH ×2 (09:30→10:23)
[2021-01-07] MEDS: CHLORHEXIDINE GLUCONATE 15 ML CUP MUCOUS MEM SCH ×2 (09:30→20:39)
[2021-01-07] MEDS ORDERED: CALCIUM GLUCONATE 1 GM in SODIUM CHLORIDE 0.9% 100 ML IVPB ONE (10:00)
[2021-01-07] MEDS: ANIDULAFUNGIN 100 MG in SODIUM CHLORIDE 0.9% 100 ML IVPB SCH (10:23)
[2021-01-07] MEDS: bisacodyL 10 MG SUPP RECTAL SCH (10:45)
[2021-01-07] MEDS: LIDOCAINE 5% PATCH TOPICAL SCH (10:45)
--- NOTE | 2021-01-07 11:05 | P.PN ---
Subjective Patient is seen in follow-up for acute kidney injury. Renal function is worse from diuresis. Currently on Lasix drip at 10 mL an hour. Urine output about 100-125 mL an hour. Remains on Levophed. Intubated. On 55% FiO2. On amiodarone drip for A. fib. Vital signs are stable. On vasopressor support. General: Intubated. HEENT: Head exam is unremarkable. LUNGS: Breath sounds decreased. HEART: Irregular rate and rhythm. ABDOMEN: Soft, no distention. EXTREMITITES: 2+ edema. Scrotal edema noted. Objective - Vital Signs Vital signs: Vital Signs Temp 98.3 F 01/07/21 08:00 Pulse 105 H 01/07/21 08:00 Resp 20 01/07/21 08:00 BP 72/54 01/06/21 06:00 Pulse Ox 95 01/07/21 08:00 Intake & Output 01/06/21 01/07/21 01/07/21 18:59 06:59 18:59 Intake Total 514.401 2401.003 914.791 Output Total 835 1150 325 Balance 152.149 529.003 589.791 Weight 103.4 kg Intake: IV 120 120 20 .9 @ 10mL/hr 120 120 20 Intake, IV Titration 086.548 6817.003 854.791 Amount Amiodarone 360 mg In 371.663 200 200 Dextrose 5% in Water 200 ml @ 1 MG/MIN 33.333 mls/ hr IV .Q6H [facility] Rx#: [id number] Anidulafungin 200 mg In 200 Sodium Chloride 0.9% 200 ml @ 84 mls/hr IVPB ONCE ONE Rx#:[id number] Furosemide 100 mg In 100 92.5 92.667 Sodium Chloride 0.9% 90 ml @ 10 MG/HR 10 mls/hr IV .Q10H [facility] Rx#: [id number] Heparin Sod,Pork in 0.45% 18.231 132.527 NaCl 25,000 unit In 0.45 % NaCl 1 250ml.bag @ 10. 04 UNITS/KG/HR 10 mls/hr IV .Q24H [facility] Rx#: [id number] Norepinephrine 8 mg In 255.231 516 488.710 Sodium Chloride 0.9% 250 ml @ 0.05 MCG/KG/MIN 9. 549 mls/hr IV .Q24H [facility] Rx#:[id number] Piperacillin-Tazobactam 3 100 .375 gm In Sodium Chloride 0.9% 100 ml @ 25 mls/hr IVPB Q8H [facility] Rx#: [id number] propofoL 1,000 mg In 122.024 77.976 73.414 Empty Bag 1 bag @ Titrate IV .Q0M [facility] Rx#: [id number] Tube Feeding 240 40 Output: Urine 835 1150 325 Other: Voiding Method Indwelling Catheter Indwelling Catheter ABP, PAP, CO, CI - Last Documented Arterial Blood Pressure 99/58 - Labs CBC & Chem 7: 01/07/21 03:54 01/07/21 03:54 Labs: Abnormal Lab Results - Last 24 Hours (Table) 01/06/21 01/06/21 01/06/21 Range/Units 12:45 13:05 13:39 WBC (3.8-10.6) k/uL RBC (4.30-5.90) m/uL Hgb (13.0-17.5) gm/dL Hct (39.0-53.0) % MCHC (31.0-37.0) g/dL RDW (11.5-15.5) % PT (9.0-12.0) sec INR (<1.2) APTT 65.3 H (22.0-30.0) sec ABG pCO2 (35-45) mmHg ABG pO2 (83-108) mmHg ABG O2 Saturation (94-97) % Sodium (137-145) mmol/L Potassium (3.5-5.1) mmol/L Carbon Dioxide (22-30) mmol/L BUN (9-20) mg/dL Creatinine (0.66-1.25) mg/dL Glucose (74-99) mg/dL POC Glucose (mg/dL) (75-99) mg/dL Plasma Lactic Acid Juan 2.2 H* (0.7-2.0) mmol/L Calcium (8.4-10.2) mg/dL Phosphorus (2.5-4.5) mg/dL Total Bilirubin (0.2-1.3) mg/dL ALT (4-49) U/L Alkaline Phosphatase (38-126) U/L Total Protein (6.3-8.2) g/dL Albumin (3.5-5.0) g/dL Procalcitonin 5.12 H (0.02-0.09) ng/mL 01/06/21 01/06/21 01/06/21 Range/Units 13:39 18:15 18:17 WBC (3.8-10.6) k/uL RBC (4.30-5.90) m/uL Hgb (13.0-17.5) gm/dL Hct (39.0-53.0) % MCHC (31.0-37.0) g/dL RDW (11.5-15.5) % PT (9.0-12.0) sec INR (<1.2) APTT (22.0-30.0) sec ABG pCO2 (35-45) mmHg ABG pO2 (83-108) mmHg ABG O2 Saturation (94-97) % Sodium (137-145) mmol/L Potassium (3.5-5.1) mmol/L Carbon Dioxide (22-30) mmol/L BUN (9-20) mg/dL Creatinine (0.66-1.25) mg/dL Glucose (74-99) mg/dL POC Glucose (mg/dL) 182 H 154 H (75-99) mg/dL Plasma Lactic Acid Juan (0.7-2.0) mmol/L Calcium (8.4-10.2) mg/dL Phosphorus 4.7 H (2.5-4.5) mg/dL Total Bilirubin (0.2-1.3) mg/dL ALT (4-49) U/L Alkaline Phosphatase (38-126) U/L Total Protein (6.3-8.2) g/dL Albumin (3.5-5.0) g/dL Procalcitonin (0.02-0.09) ng/mL 01/06/21 01/07/21 01/07/21 Range/Units 23:38 03:54 03:54 WBC 28.5 H (3.8-10.6) k/uL RBC 3.63 L (4.30-5.90) m/uL Hgb 10.8 L (13.0-17.5) gm/dL Hct 34.9 L (39.0-53.0) % MCHC 30.9 L (31.0-37.0) g/dL RDW 16.3 H (11.5-15.5) % PT (9.0-12.0) sec INR (<1.2) APTT (22.0-30.0) sec ABG pCO2 (35-45) mmHg ABG pO2 (83-108) mmHg ABG O2 Saturation (94-97) % Sodium 131 L (137-145) mmol/L Potassium 3.4 L (3.5-5.1) mmol/L Carbon Dioxide 19 L (22-30) mmol/L BUN 60 H (9-20) mg/dL Creatinine 2.22 H (0.66-1.25) mg/dL Glucose 167 H (74-99) mg/dL POC Glucose (mg/dL) 205 H (75-99) mg/dL Plasma Lactic Acid Juan (0.7-2.0) mmol/L Calcium 7.8 L (8.4-10.2) mg/dL Phosphorus (2.5-4.5) mg/dL Total Bilirubin 2.5 H (0.2-1.3) mg/dL ALT 180 H (4-49) U/L Alkaline Phosphatase 197 H (38-126) U/L Total Protein 4.6 L (6.3-8.2) g/dL Albumin 2.4 L (3.5-5.0) g/dL Procalcitonin (0.02-0.09) ng/mL 01/07/21 01/07/21 Range/Units 03:54 04:00 WBC (3.8-10.6) k/uL RBC (4.30-5.90) m/uL Hgb (13.0-17.5) gm/dL Hct (39.0-53.0) % MCHC (31.0-37.0) g/dL RDW (11.5-15.5) % PT 30.0 H (9.0-12.0) sec INR 3.1 H (<1.2) APTT 75.9 H (22.0-30.0) sec ABG pCO2 33 L (35-45) mmHg ABG pO2 55 L* (83-108) mmHg ABG O2 Saturation 86.9 L (94-97) % Sodium (137-145) mmol/L Potassium (3.5-5.1) mmol/L Carbon Dioxide (22-30) mmol/L BUN (9-20) mg/dL Creatinine (0.66-1.25) mg/dL Glucose (74-99) mg/dL POC Glucose (mg/dL) (75-99) mg/dL Plasma Lactic Acid Juan (0.7-2.0) mmol/L Calcium (8.4-10.2) mg/dL Phosphorus (2.5-4.5) mg/dL Total Bilirubin (0.2-1.3) mg/dL ALT (4-49) U/L Alkaline Phosphatase (38-126) U/L Total Protein (6.3-8.2) g/dL Albumin (3.5-5.0) g/dL Procalcitonin (0.02-0.09) ng/mL Microbiology - Last 24 Hours (Table) 01/04/21 21:08 Gram Stain - Final Sputum Sputum Culture - Final Cristina albicans 01/05/21 06:50 Blood Culture - Preliminary Blood No Growth after 24 hours 01/06/21 04:00 Gram Stain - Preliminary Sputum Sputum Culture - Preliminary 01/05/21 17:35 Blood Culture - Preliminary Blood No Growth after 24 hours Assessment and Plan Plan: Assessment: 1. Acute kidney injury secondary to ATN secondary to cardiorenal syndrome and hypotension. Renal function worse. Creatinine 2.22 today. 2. Volume overload. 3. A. fib with RVR maintained on amiodarone drip. 4. Pseudomonas UTI on antibiotics. 5. Acute hypoxic respiratory failure. 6. Hypervolemic hyponatremia. 7. Shock maintained on Levophed. Also on midodrine. Cortisol level not low. 8. Respiratory alkalosis and metabolic acidosis. 9. Hypokalemia from diuresis. Plan: Maintain Lasix drip and metolazone. Continue to monitor renal function and urine output. Avoid nephrotoxins. Wean FiO2 and vasopressors. Due to severe volume overload, initiate ultrafiltration. Will obtain consent from family. Potassium replaced. Case discussed with the quality control lab tech.
--- NOTE | 2021-01-07 11:10 | PN ---
PROGRESS NOTE Mr. Valero is a 80-year-old male, status post coronary artery bypass grafting done recently, atrial fibrillation, who had respiratory failure. He is intubated and sedated. His urine output is stable, but he is requiring vasopressor for his blood pressure. He continues to be in atrial fibrillation with an overall controlled ventricular response on IV amiodarone. He was started on IV heparin as well. His repeat echocardiogram showed an overall preserved systolic function. He has an NG tube and is tolerating feeding tube. He continues on the IV amiodarone as initiated, aspirin, IV heparin, metolazone 5 mg daily, metoprolol tartrate 12.5 mg twice a day, midodrine. PHYSICAL EXAMINATION: Blood pressure is running in the high 90s with a heart rate in the low 100s. Afebrile. Intubated and sedated. LUNGS: No wheezes anteriorly. A few crackles. HEART: Irregularly irregular. S1, S2. No S3. No rub. ABDOMEN: Soft. Positive bowel sounds. No organomegaly. EXTREMITIES: Plus 1 to 2 edema bilaterally. LAB DATA: Hemoglobin 10.8, white blood cells 28.5. His BUN and creatinine are and 2.2. Potassium 3.4. ALT of 180. Chest x-ray revealed pleural effusion as well as infiltrate in the right lung. IMPRESSION: 1. Respiratory failure with possible pneumonia. 2. Pleural effusion. 3. Status post coronary artery bypass grafting. 4. Chronic persistent atrial fibrillation. 5. Hypotension. 6. Worsening renal function. 7. Improved liver function tests. RECOMMENDATIONS: From the cardiac standpoint, will continue supportive care at this time with the present therapy. Continue to follow his renal function closely and his respiratory status. The elevated white blood cells and his chest x-ray are very concerning for an infectious process. He has been seen by Dr. Akers. The prognosis remains guarded. MMODL / IJN: [id number] / MTDD
--- NOTE | 2021-01-07 11:36 | CDI ---
Documentation Clarification Form Date: 01/02/2021 12:51:00 PM From: Sudha Mora RN, CCDS Admit Date: 12/27/2020 08:45:00 PM Patient Name: Jorje Valero Visit Number: [id number] ATTENTION: The Clinical Documentation Specialists (CDI) and [facility] Coding Staff appreciate your assistance in clarifying documentation. Please respond to the clarification below the line at the bottom and electronically sign. The CDI & [facility] Coding staff will review the response and follow-up if needed. Please note: Queries are made part of the Legal Health Record. If you have any questions, please contact the author of this message via ITS. Dr. Mack Huizar Hypotension with use of vasopressors has been documented in progress notes beginning 01/04. Clinical significance of this s/sx and treatment is requested. Patient history/risk factors: Admitted 12/28 with Acute on Chronic Systolic CHF exacerbation, HX of CAD with PCI, and recent CABG, Chronic Atrial Fib, YVETTE with cardiorenal syndrome, Hepatorenal syndrome, DM2, HTN, Acute UTI with pseudomonas, Acute hypoxic respiratory failure, Aspiration Pneumonia, Pleural Effusions with Left thoracentesis, YVETTE on CKD stage 2, Chronic Persisitent Atrial Fib Clinical Indicators: 12/31 Pulmonary Progress note: hypertension currently on low-dose norepinephrine infusion for blood pressure control." 01/05-01/06 Nephrology progress note: "Vital signs are stable. On vasopressor support. Shock maintained on Levophed." 01/05 Op Note for A-Line insertion: "Profound hypotension; patient is requiring high dose of norepinephrine." 12/28 Echo: EF 40-50%, LA severely dilated, RV moderately enlarged 01/05 Pulmonary Progress note: "Hypotension requiring pressors could be secondary to hypoperfusion and LV dysfunction could also be related to sepsis although felt to be less likely." 01/06 ID Consult: "patient with sepsis in this patient who did have a hypotension requiring pressor support did have elevated white count and hypothermia source more likely pneumonia possible aspiration/gram-negative however the patient also has abnormality seen on the gallbladder underlying intra-abdominal source letter excluded, patient also has been exposed antibiotics steroids for component of possible oropharyngeal exudates and anicteric sclerae patient is on amiodarone therapy we will continue daily use of Diflucan ." Treatment: 01/04-current: Levophed Gtt titrate for B/P 01/04 to Current: Zosyn 3.375 gm IVPB q 8 hrs. 01/03-01/04 Cefepime 2gm IVPB q 12 hrs. 01/01-01/03 IV Ceftriaxone IVPB Q 24 hrs. 01/06-Current: Zaroxolyn 5 mg Po QD 12/27-01/05 IVP Lasix, several doses 01/05-Current Lasix Gtt @ 10 mg/hr. 12/31 1750 cc 0.9% NS IVF Bolus 12/31 Albumin 50ml IVPB x 2 doses, 01/03 x 1 dose Please clarify the clinical significance of hypotension requiring vasopressors, if known: [ X ] Septic Shock [ ] Hypovolemic Shock [X ] Cardiogenic Shock [ ] Other, please specify [ ] Unable to determine (Template Last Revised: May 2020) MTDD
--- NOTE | 2021-01-07 11:54 | CDI ---
Documentation Clarification Form Date: 01/07/2021 11:49:50 AM From: Sudha Mora RN, CCDS Admit Date: 12/27/2020 08:45:00 PM Patient Name: Jorje Valero Visit Number: [id number] ATTENTION: The Clinical Documentation Specialists (CDI) and [facility] Coding Staff appreciate your assistance in clarifying documentation. Please respond to the clarification below the line at the bottom and electronically sign. The CDI & [facility] Coding staff will review the response and follow-up if needed. Please note: Queries are made part of the Legal Health Record. If you have any questions, please contact the author of this message via ITS. Dr. Monica Slater Malnutrition is documented in the 01/06 Attending Progress Note. Additional clarification regarding the severity of malnutrition is requested. History/Risk Factors: Acute on Chronic Systolic CHF, recent CABG, CAD with PCI, GERD, DM2, HTN, Dyslipidemia, Shock liver, Acute UTI, Chronic Atrial Fib Clinical Indicators: 01/06 Attending Progress note: "protein energy malnutrition. Low albumin enteral feeding initiated." Current BMI: 36.8 Insufficient energy intake: Acute hypoxic respiratory failure maintained on mechanical ventilation Weight Loss: Dietary documented patient as overweight Loss of muscle mass: profound weakness and debility per General Surgery Fluid accumulation: CHF with bilateral pleural effusion, bilateral lower extremity edema, ascites, and anasarca RD Consult Assessment: Poor nutritional status d/t intubation Treatment: Dietary Consult: Completed 01/01, 01/05, 01/06 Supplements: Glucerna BID (prior to intubation) Tube Feedings 12/27: Vital AF @ 38 ml/hr. with 30 ml water free flush Q 4hrs. Lab monitoring: AM Daily Please clarify the type of malnutrition, if known: [ X ] Mild Protein-Calorie Malnutrition [ ] Moderate Protein-Calorie Malnutrition [ ] Severe Protein-Calorie Malnutrition [ ] Malnutrition, unspecified [ ] Malnutrition following GI surgery [ ] Other condition, please specify [ ] Unable to Determine (Template Last Revised: May 2020) MTDD
[2021-01-07 12:07] LABS: Glucose,Whole Blood 208 mg/dL (75-99)
[2021-01-07] MEDS: FERROUS SULFATE 325 MG TAB PO SCH (12:25)
[2021-01-07] MEDS: NOREPINEPHRINE 32 MG in SODIUM CHLORIDE 0.9% 218 ML IV SCH (13:32)
--- NOTE | 2021-01-07 13:53 | P.PN ---
Subjective Progress Note Date: 01/07/21 HISTORY OF PRESENT ILLNESS This is a 80-year-old male patient of Dr. Campos and Dr. Mullins with past medical history of chronic persistent atrial fibrillation, diabetes mellitus type 2, hypertension, hyperlipidemia, history of pituitary tumor resection, obstructive sleep apnea on BiPAP, gastroesophageal reflux disease, benign prostatic hypertrophy. He should also has history of coronary artery disease status post PCI to the LAD in 2005, heart catheterization in October 2020 found severe triple-vessel disease, subsequently admitted to the hospital for elective coronary artery bypass grafting 12/16 for four-vessel bypass MORAN to LAD, left radial artery from the aorta to the first obtuse marginal artery, reverse saphenous vein graft from the aorta to the second diagonal artery, reverse saphenous vein graft from the aorta to the posterior descending artery, endoscopic harvesting of the left radial artery, endoscopic harvesting of the left greater saphenous vein from ankle to the groin, exclusion of the left atrial appendage. During his last admission, he remained in ICU,Until December 24,, and after he was transferred to [facility] for cardiac recovery program. He has chronic atrial fibrillation, diabetes mellitus type 2, hypertension, hyperlipidemia, history of pituitary gland resection, obstructive sleep apnea, BPH with urinary retention, and delirium.. At the time of discharge, he was on Coumadin and Singulair Cardizem CD lisinopril Tylenol, he was taken off atenolol Vytorin lisinopril Imdur aspirin and nitro. -He comes back to the emergency room 2 days later, from [facility], secondary to shortness of breath, and edema. She also has worsening of her liver issues, with no visible jaundice. On ER presentation, he has indwelling Barrow catheter, there is no fever, no focal deficit, chest pain, he has shortness of breath, no vomiting, no diarrhea, no melena. In the emergency room, EKG shows atrial fibrillation heart rate of 79, no significant change compared to 927 EKG, double basic count is 15, hemoglobin of 9, sodium of 131, BUN 62 creatinine 4.7, CO2 of 19 total bili of 7.3, AST 949 ALT 881, alkaline phosphatase 411, troponin is stagnant at 0.14, and 0.148. Lactic acid level was 2.1, INR is 3.3 ultrasound of the gallbladder, shows common bile duct is normal, liver is enlarged, otherwise no other pathologies noted. Chest x-ray shows bilateral pleural effusion, basilar pulmonary infiltrates, which slightly is worse compared to previous, mild heart failure is possible, cardiomegaly some change patient is admitted to ICU with consultation to critical care medicine Dr. Vásquez, and cardiology. Chest ultrasound is ordered CMV and hepatitis panels ordered, patient would need a CAT scan of the abdomen, to eval for spleen gallbladder, Tylenol is discontinued, Lipitor is discontinued check for haptoglobin, reticulocyte count, and iron studies to evaluate portal system. No clerical assigner electrician telephone in the hospital until January 1212/29: Repeat blood work reveals WBC 12.6, hemoglobin 10, platelet count 265. INR is 3. Sodium 132, potassium 4.1, chloride 100, CO2 18, BUN 65 and creatinine 1.81, blood sugar 119. Total bilirubin 6.5, AST 493, ALT 663, alkaline phosphatase 360. INR is 3.0. Magnesium 2.6. Lipase 473. CMV nonreactive 2 draws. Hepatitis panel negative. Repeat chest x-ray reveals patchy perihilar and basilar infiltrates/atelectasis as well as pleural effusions persist without significant interval change. Dr. Cartagena has ordered for vitamin K 2.5 mg and repeat INR with plan for thoracentesis once INR is und er 2. Patient is also followed by cardiology and Lasix decreased to 40 mg IV daily. Echocardiogram reveals EF of 45-60% with moderate concentric left hypertrophy, LA is severely dilated, mild to moderate mitral regurgitation, mild tricuspid regurgitation. Patient denies having any shortness of breath at rest. He denies abdominal pain, no nausea. He has had good urine output around 35 mL per hour. 12/30: Patient underwent right sided thoracentesis this morning with Dr. Cartagena with removal of approximately 650 ML's of turbid fluid. Repeat chest x- ray following procedure showed no complications. Patient was on BiPAP during the night and currently on O2 by nasal cannula at 3 L with pulse ox of 97%. Blood pressure 101/64, heart rate 81, afebrile. Patient has been seen and followed by nephrology for acute kidney injury secondary to hypotension and hypoperfusion. Plan is to continue diuresis in the patient, hold MAURA inhibitor, check cortisol level, monitor I&O's. Midodrine was increased yesterday. Repeat blood work today reveals WBC 12.2, hemoglobin 9.9 and platelet count 312. INR this morning was 1.9. Sodium 128, potassium 4.7, chloride 95, CO2 21, BUN 71 and creatinine 2.11. Blood sugars running between 109 and 134. Repeat liver function tests reveal total bilirubin 6, AST 28, ALT 535, alkaline phosphatase 295. Magnesium 2.8. Cortisol level came back at 27. Patient will be transferred to the cardiac stepdown unit. 12/31: Patient remains in the intensive care unit, today resting in bed on BiPAP. Patient became hypotensive overnight and required levo fed and was transferred back to the intensive care unit. Levo fed is currently off. Repeat blood work reveals WBC 16.5, hemoglobin 10.4, platelet count 282. Sodium 125, potassium 5.8, BUN 77 and creatinine 2.75. AST 1302, ALT 987, alkaline phosphatase 236. INR 2.9. Patient is followed by multiple consultants including cardiology, pulmonary medicine, nephrology and cardiothoracic surgery. Patient has been reaching 1000 on incentive spirometry. CAT scan of the abdomen and pelvis reveals nonobstructive left nephrolithiasis. Left pleural effusion difficult to exclude basilar pneumonia or atelectasis. There may be a posterior dependent he will. Cardiac. Coronary artery disease. Repeat chest x-ray reveals stable bibasilar infiltrate and small left pleural effusion. Renal ultrasound reveals limited assessment of left kidney demonstrate no definite hydronephrosis or hydroureter lysis. No hydronephrosis on the right kidney 01/01: Patient remains in the intensive care unit, resting in chair on nasal oxygen and appears to be comfortable. Pulse ox is 99%, blood pressure 80/65 and he is on levo fed. Lopressor was decreased by nephrology. Heart rate is 106, afebrile. Repeat blood work reveals WBC 10.1, hemoglobin 10.3, platelet count 291. INR 2.7. Sodium 130, potassium 4.0, chloride 94, CO2 25, BUN 76 and creatinine 2.38. Calcium 7.7. Magnesium 2.8. AST 824, ALT 920, alkaline p hosphatase 210. Patient received calcium gluconate 1 g this morning. Chest x-ray reveals pleural parenchymal density left lower lobe persistent appears to be somewhat improved. 01/02: Patient remains in intensive care unit. He appears to be less jaundiced today. Urine is blood tinged. He states he is uncomfortable all over his body but no specific pain. He states he is skinny interrupted sleep throughout the night and melatonin increased. He continues not have appetite and Remeron added. Discussed with cardiothoracic surgery transitioning patient to eliquis although patient had episodes of nausea with this and to discuss other options, and also regard the posterior hemopericardium. Patient has been afebrile, heart rate 105, blood pressure 103/70, pulse ox 99% 2 L nasal cannula. Repeat blood work reveals WBC 10.8, hemoglobin 10.6, platelet count 251. Sodium 131, potassium 3.7, chloride 100, CO2 22, BUN 16 creatinine 1.41. Blood sugars are running between 105 and 144. Lactic acid 2.1. Calcium 7.8. Liver function tests are improving with total bilirubin 3.5, AST 449, ALT 684, alkaline phosphatase 194. LDH 1192. Lipase 302. 01/03: Patient evaluated this morning, remains in intensive care unit, patient is awake and alert, is currently on room air. Repeat chest x-ray shows pleural parenchymal lung base that is unchanged. Repeat blood work reveals hemoglobin 10.6, platelet count of 220, INR 3.1, sodium 132, BUN 58, creatinine 1.48, AST 319, ALT 578, Alk Phos 190. Liver function tests are improving. Urine culture showed Pseudomonas aeruginosa, he is on cefepime. Telemetry showing atrial fibrillation, he was started on xarelto yesterday for anticoagulation, and was held today for increase in INR. He was given calcium gluconate and albumin today and also a dose of Lasix Vital signs are heart rate 103, respiratory rate 13, blood pressure 92/72, 94% on room air. 01/04: Patient evaluated this morning, remains in the ICU, sitting up resting in the bedside recliner, patient is awake and alert. Labs show hemoglobin 10.5, platelets 221, INR 2, potassium 4.1, BUN 59, creatinine 1.57, total bilirubin 2.8, AST 188, ALT 457, alk phos 222, albumin 2.9. Telemetry still showing atrial fibrillation with an elevated rate, cardiology is following and is on amiodarone 400 mg twice a day. Patient continues to have problems with blood pressure and postural hypotension. Flomax was discontinued, urology consult appreciated. Recommends to continue with the Barrow catheter until he is more stabilized and ambulating, then we'll plan to remove the catheter and do a voiding trial. Pulmonary reviewed repeat chest x-ray from today and shows a moderate sized left sided pleural effusion, right-sided pleural effusion has recovered. Pulmonary considering possibly doing another thoracentesis on the left side. Patient does not require any pressors at this point. Patient still has extensive edema in the upper and lower extremities with signs of fluid overload, Lasix 40 mg IV ordered. He continues on cefepime for Pseudomonas aeruginosa in the urine. Oral intake continues to be poor, recently started on Remeron. 01/05: Patient was intubated last evening and was started on propofol, norepinephrine and was on amiodarone. Patient is currently on mechanical ventilation with tidal volume 400, FiO2 60, PEEP of 10. He is undergoing echocardiogram at this time which reported EF of 50-55% with moderate concentric left ventricular hypertrophy, no pericardial effusion.. He continues to have significant anasarca and edema. Heart rate is running in the low 100s with atrial fibrillation. Repeat blood work reveals WBC 17.3, hemoglobin 12, platelet count 185. INR is 1.8. Sodium 131, potassium 3.9, chloride 99, CO2 20, BUN 61 and creatinine 1.73. Blood sugars are running between 141 and 203. Total bilirubin 2.7, AST 89, ALT 300, alkaline phosphatase 201. Cortisol level LV. Chest x-ray reveals worsening left lower lobe infiltrate. Small to modera te pleural effusion may be worsening. Increased perihilar infiltrates more notably on the right. CT of the abdomen and pelvis with contrast revealed bilateral lower lobe pulmonary consolidation and pleural fluid. Cardiomegaly. Congestive heart failure is possible. Some loculated ascites fluid noted in the abdomen. No free air. No sign of mechanical bowel obstruction. Subcutaneous edema around the abdomen. 01/06 patient evaluated on 01/06 remains in the ICU intubated. continues to remain on assist control on FiO2 50% BP is improved from 10 to a respiratory rate of 22. Chest x-ray suggestive of pulmonary edema patient remains on Lasix drip at 10 mics per hour. Metolazone initiated at 5 mg daily. Patient continues to remain in atrial fibrillation continue amiodarone at 1 monique per minute. On sedation maintained with propofol. Patient continued to remain on norepinephrine definite 0.3 monique per KG per minute. Labs were reviewed patient's WBC worsened to 29.3 hemoglobin 10.6 increase in neutrophils. ABG obtained this from pH 7.42 pCO2 32, pO2 105 sodium 131 bicarb 18 BUN 15 and creatinine 1.9 lactic acid was 2.2 calcium 7.8 phosphorus 4.7 liver enzymes continued to do wntrend with AST 60 ALT [address] abdomen reviewed suggestive of severe anasarca change with third spacing severe lower lobe and inferior lingular consolidation suggestive of aspiration pneumonitis extensive edema that is changes involving the deeper plane of visualized upper thighs arm. Second concern showed bladder wall thickening representing chronic bladder wall hypertrophy and cystitis.. 5.9 cm noted. Infectious disease consulted the Zosyn added. No sign of bowel ischemia noted. Abdominal ultrasound suggestive of mild abdominal ascites with moderate right pleural effusion no obvious hydronephrosis, gallstones or biliary duct dilation noted infection noted. En teral feeding to be initiated today 01/07 patient remains intubated, on assist control FiO2 reduced to 55%, PEEP of 12. Continues to remain on IV Solu-Medrol, Lasix drip, heparin drip, propofol and IV Levophed. Vitals reviewed patient is afebrile pulse 80. Respiratory rate 21 blood pressure 105/62. On 91% saturation on 55% FiO2. Urine output adequate at 40-60 mg per hour. Patient continued to gain weight and has gained 13 kg since admission. WBC is assist 28.5 hemoglobin 10.8 INR is high at 3.1 sodium 131 potassium 2.8 BUN 16 creatinine 2.2 to glucose 167 calcium 7.8 AST ALT continue to improve. Pro-calcitonin 5.12. Continues to remain on Zosyn per infectious disease recommendation. REVIEW OF SYSTEMS unable to obtain due to intubation PHYSICAL EXAMINATION Gen: This is a 80-year-old male. Patient is resting in ICU bed, intubated and on mechanical ventilation. HEENT: Head is atraumatic, normocephalic. Pupils equal, round. Sclerae is anicteric. Oral ET tube. NECK: Supple. No JVD. No lymphadenopathy. No thyromegaly. LUNGS: Diminished to the bilateral basis. No intercostal retractions. HEART: Irregular rate and rhythm. No murmur. ABDOMEN: Soft. Bowel sounds are present. No masses. No tenderness. Barrow ol[address] ter. EXTREMITIES: 3+ bilateral pedal edema mildly improved. Scrotal edema with pitting edema involving the subcutaneous plane of the abdomen and back No calf tenderness. NEUROLOGICAL: Patient is intubated ASSESSMENT AND PLAN 1. Acute hypoxic respiratory failure secondary to fluid overload and pleural effusions and possible aspiration pneumonia. Intubation on 01/04. Patient is status post right-sided thoracentesis on 12/30 of 650 mL, continue Lasix drip with metolazone 5 mg by mouth daily monitor I&O and daily weights, monitor renal function and electrolytes. Zosyn initiated on 01/06. Infectious disease was consulted 2. Severe coagulopathy, on Coumadin, with worsening of transaminitis, with jaundice, suspect hepatobiliary obstruction, ischemic liver cirrhosis. Lipitor and Tylenol was discontinued and held. Coumadin is on hold. Patient placed on heparin drip per cardiology. 3. Acute kidney injury and chronic kidney disease stage II secondary to hypo perfusion, obstructive uropathy with balloon not in the bladder. Consult with nephrology appreciated. Avoid nephrotoxic agents. Barrow cath apparently was not in the bladder and has been replaced. Continuous function continues to worsen patient continues to remain on diuretics 4. Acute sepsis with septic shock and cardiogenic shock. Continue Zosyn and Eraxis . Infectious disease recommendation possible source aspiration versus intra-abdominal. CT abdomen was negative for intra-abdominal source also for anasarca and aspiration pneumonia. 5. Coronary artery disease status post 4 vessel CABG 12/16. Continue current management per cardio thoracic surgery. Continue aspirin 81 mg daily, Lipitor on hold, Lopressor 12.5 mg twice daily 6. Chronic persistent atrial fibrillation. Heparin drip, amiodarone drip, Lopressor 12.5 mg twice daily. 7. Acute transaminitis likely secondary to congestive heart failure trending down. Started held 8. Hypovolemic hyponatremia. Continue to monitor sodium. 9. Diabetes mellitus type 2. Continue with NovoLog scale before meals and at bedtime, blood sugar is controlled. 10. Hypertension. Patient is currently hypotensive on norepinephrine. Continue Lopressor. 11. Hyperlipidemia. Hold Lipitor. 12. Urinary retention. Maintain Barrow catheter. 13. History of pituitary gland resection. 14. Obstructive sleep apnea on BiPAP. 15. Gastroesophageal reflux disease. 16. 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 17. DVT prophylaxis. HA hose. 18. Postural hypotension. Flomax held. 19. GI prophylaxis. Protonix. 20 anasarca with pleural effusions scrotal edema on Lasix drip 10 mg per hour with metolazone at 5 mg by mouth daily 21 mild protein energy malnutrition. Low albumin Enteral feeding initiated DISCHARGE PLAN Most likely return to [facility] for subacute rehab. Objective - Vital Signs Vital signs: Vital Signs Temp 97.7 F 01/07/21 12:00 Pulse 85 01/07/21 12:00 Resp 21 01/07/21 12:00 BP 72/54 01/06/21 06:00 Pulse Ox 91 L 01/07/21 12:00 Intake & Output 01/06/21 01/07/21 01/07/21 18:59 06:59 18:59 Intake Total 769.107 1302.003 1034.791 Output Total 835 1150 825 Balance 152.149 529.003 209.791 Weight 103.4 kg 108 kg Intake: IV 120 120 60 .9 @ 10mL/hr 120 120 60 Intake, IV Titration 262.308 2042.003 854.791 Amount Amiodarone 360 mg In 371.663 200 200 Dextrose 5% in Water 200 ml @ 1 MG/MIN 33.333 mls/ hr IV .Q6H [facility] Rx#: [id number] Anidulafungin 200 mg In 200 Sodium Chloride 0.9% 200 ml @ 84 mls/hr IVPB ONCE ONE Rx#:[id number] Furosemide 100 mg In 100 92.5 92.667 Sodium Chloride 0.9% 90 ml @ 10 MG/HR 10 mls/hr IV .Q10H [facility] Rx#: [id number] Heparin Sod,Pork in 0.45% 18.231 132.527 NaCl 25,000 unit In 0.45 % NaCl 1 250ml.bag @ 10. 04 UNITS/KG/HR 10 mls/hr IV .Q24H [facility] Rx#: [id number] Norepinephrine 8 mg In 255.231 516 488.710 Sodium Chloride 0.9% 250 ml @ 0.05 MCG/KG/MIN 9. 549 mls/hr IV .Q24H [facility] Rx#:[id number] Piperacillin-Tazobactam 3 100 .375 gm In Sodium Chloride 0.9% 100 ml @ 25 mls/hr IVPB Q8H [facility] Rx#: [id number] propofoL 1,000 mg In 122.024 77.976 73.414 Empty Bag 1 bag @ Titrate IV .Q0M [facility] Rx#: [id number] Tube Feeding 240 120 Output: Urine 835 1150 825 Other: Voiding Method Indwelling Catheter Indwelling Catheter ABP, PAP, CO, CI - Last Documented Arterial Blood Pressure 105/62 - Labs CBC & Chem 7: 01/07/21 03:54 01/07/21 12:00 Labs: Abnormal Lab Results - Last 24 Hours (Table) 01/06/21 01/06/21 01/06/21 Range/Units 13:05 13:39 13:39 WBC (3.8-10.6) k/uL RBC (4.30-5.90) m/uL Hgb (13.0-17.5) gm/dL Hct (39.0-53.0) % MCHC (31.0-37.0) g/dL RDW (11.5-15.5) % PT (9.0-12.0) sec INR (<1.2) APTT 65.3 H (22.0-30.0) sec ABG pCO2 (35-45) mmHg ABG pO2 (83-108) mmHg ABG O2 Saturation (94-97) % Sodium (137-145) mmol/L Potassium (3.5-5.1) mmol/L Carbon Dioxide (22-30) mmol/L BUN (9-20) mg/dL Creatinine (0.66-1.25) mg/dL Glucose (74-99) mg/dL POC Glucose (mg/dL) (75-99) mg/dL Calcium (8.4-10.2) mg/dL Phosphorus 4.7 H (2.5-4.5) mg/dL Total Bilirubin (0.2-1.3) mg/dL ALT (4-49) U/L Alkaline Phosphatase (38-126) U/L Total Protein (6.3-8.2) g/dL Albumin (3.5-5.0) g/dL Procalcitonin 5.12 H (0.02-0.09) ng/mL 01/06/21 01/06/21 01/06/21 Range/Units 18:15 18:17 23:38 WBC (3.8-10.6) k/uL RBC (4.30-5.90) m/uL Hgb (13.0-17.5) gm/dL Hct (39.0-53.0) % MCHC (31.0-37.0) g/dL RDW (11.5-15.5) % PT (9.0-12.0) sec INR (<1.2) APTT (22.0-30.0) sec ABG pCO2 (35-45) mmHg ABG pO2 (83-108) mmHg ABG O2 Saturation (94-97) % Sodium (137-145) mmol/L Potassium (3.5-5.1) mmol/L Carbon Dioxide (22-30) mmol/L BUN (9-20) mg/dL Creatinine (0.66-1.25) mg/dL Glucose (74-99) mg/dL POC Glucose (mg/dL) 182 H 154 H 205 H (75-99) mg/dL Calcium (8.4-10.2) mg/dL Phosphorus (2.5-4.5) mg/dL Total Bilirubin (0.2-1.3) mg/dL ALT (4-49) U/L Alkaline Phosphatase (38-126) U/L Total Protein (6.3-8.2) g/dL Albumin (3.5-5.0) g/dL Procalcitonin (0.02-0.09) ng/mL 01/07/21 01/07/21 01/07/21 Range/Units 03:54 03:54 03:54 WBC 28.5 H (3.8-10.6) k/uL RBC 3.63 L (4.30-5.90) m/uL Hgb 10.8 L (13.0-17.5) gm/dL Hct 34.9 L (39.0-53.0) % MCHC 30.9 L (31.0-37.0) g/dL RDW 16.3 H (11.5-15.5) % PT 30.0 H (9.0-12.0) sec INR 3.1 H (<1.2) APTT 75.9 H (22.0-30.0) sec ABG pCO2 (35-45) mmHg ABG pO2 (83-108) mmHg ABG O2 Saturation (94-97) % Sodium 131 L (137-145) mmol/L Potassium 3.4 L (3.5-5.1) mmol/L Carbon Dioxide 19 L (22-30) mmol/L BUN 60 H (9-20) mg/dL Creatinine 2.22 H (0.66-1.25) mg/dL Glucose 167 H (74-99) mg/dL POC Glucose (mg/dL) (75-99) mg/dL Calcium 7.8 L (8.4-10.2) mg/dL Phosphorus (2.5-4.5) mg/dL Total Bilirubin 2.5 H (0.2-1.3) mg/dL ALT 180 H (4-49) U/L Alkaline Phosphatase 197 H (38-126) U/L Total Protein 4.6 L (6.3-8.2) g/dL Albumin 2.4 L (3.5-5.0) g/dL Procalcitonin (0.02-0.09) ng/mL 01/07/21 01/07/21 01/07/21 Range/Units 04:00 12:00 12:02 WBC (3.8-10.6) k/uL RBC (4.30-5.90) m/uL Hgb (13.0-17.5) gm/dL Hct (39.0-53.0) % MCHC (31.0-37.0) g/dL RDW (11.5-15.5) % PT (9.0-12.0) sec INR (<1.2) APTT 61.1 H (22.0-30.0) sec ABG pCO2 33 L (35-45) mmHg ABG pO2 55 L* (83-108) mmHg ABG O2 Saturation 86.9 L (94-97) % Sodium (137-145) mmol/L Potassium (3.5-5.1) mmol/L Carbon Dioxide (22-30) mmol/L BUN (9-20) mg/dL Creatinine (0.66-1.25) mg/dL Glucose (74-99) mg/dL POC Glucose (mg/dL) 208 H (75-99) mg/dL Calcium (8.4-10.2) mg/dL Phosphorus (2.5-4.5) mg/dL Total Bilirubin (0.2-1.3) mg/dL ALT (4-49) U/L Alkaline Phosphatase (38-126) U/L Total Protein (6.3-8.2) g/dL Albumin (3.5-5.0) g/dL Procalcitonin (0.02-0.09) ng/mL Microbiology - Last 24 Hours (Table) 01/04/21 21:08 Gram Stain - Final Sputum Sputum Culture - Final Cristina albicans 01/05/21 06:50 Blood Culture - Preliminary Blood No Growth after 24 hours 01/06/21 04:00 Gram Stain - Preliminary Sputum Sputum Culture - Preliminary 01/05/21 17:35 Blood Culture - Preliminary Blood No Growth after 24 hours
--- NOTE | 2021-01-07 14:19 | P.PN ---
Subjective Progress Note Date: 01/07/21 CHIEF COMPLAINT: Shortness of breath HISTORY OF PRESENT ILLNESS: Surgical service is following in regards to patient's abdominal distention. Patient remains in the ICU intubated and sedated. He is requiring Levophed. He remains on Lasix drip. Computed tomography scan abdomen and pelvis with oral contrast shows ongoing fairly severe anasarca change. Continued third spacing given continued mild abdominal pelvic ascites and small bilateral pleural effusions. Continued severe lower lobe inferior lingular consolidation. Correlate for infectious or aspiration pneumonitis. Extensive edematous change extends to include the deeper planes of the visualized upper thighs. Correlate to exclude any signs or symptoms of infection or myositis. Circumferential bladder wall thickening could represent chronic bladder wall hypertrophy or cystitis. There is some megaly of 5.9 cm wide. Barrow catheter in place. Also mentioned a borderline distended gallbladder 4 cm. Ultrasound of the abdomen did show a normal gallbladder. White count 28.5 lactic acid is down to 1.9. Patient seen by infectious disease they've added Eraxis for yeast in the mouth. Patient also on Zosyn. Patient seen and examined with Dr. man PHYSICAL EXAM: VITAL SIGNS: Reviewed. GENERAL: Well-developed in no acute distress. HEENT: No sclera icterus. Extraocular movements grossly intact. Moist buccal mucosa. Head is atraumatic, normocephalic. ABDOMEN: Soft. Distended NEUROLOGIC: Alert and oriented. Cranial nerves II through XII grossly intact. ASSESSMENT: 1. Abdominal distention 2. Severe anasarca of the abdomen 3. Circumferential bladder wall thickening could represent bladder wall hypertrophy or cystitis with enlarged prostate. 4. Acute hypoxic respiratory failure due to fluid overload and bilateral pleural effusions PLAN: -No surgical intervention planned -Continue ICU management -Continue supportive care Physician Stem Processing Machine Operator note has been reviewed by physician. Signing provider agrees with the documented findings, assessment, and plan of care. Objective - Vital Signs Vital signs: Vital Signs Temp 97.7 F 01/07/21 12:00 Pulse 85 01/07/21 12:00 Resp 21 01/07/21 12:00 BP 72/54 01/06/21 06:00 Pulse Ox 91 L 01/07/21 12:00 Intake & Output 01/06/21 01/07/21 01/07/21 18:59 06:59 18:59 Intake Total 588.043 3273.003 1104.000 Output Total 835 1150 1000 Balance 152.149 529.003 104.000 Weight 103.4 kg 108 kg Intake: IV 120 120 80 .9 @ 10mL/hr 120 120 80 Intake, IV Titration 934.574 7418.003 864.000 Amount Amiodarone 360 mg In 371.663 200 200 Dextrose 5% in Water 200 ml @ 1 MG/MIN 33.333 mls/ hr IV .Q6H [facility] Rx#: [id number] Anidulafungin 200 mg In 200 Sodium Chloride 0.9% 200 ml @ 84 mls/hr IVPB ONCE ONE Rx#:[id number] Furosemide 100 mg In 100 92.5 92.667 Sodium Chloride 0.9% 90 ml @ 10 MG/HR 10 mls/hr IV .Q10H [facility] Rx#: [id number] Heparin Sod,Pork in 0.45% 18.231 132.527 NaCl 25,000 unit In 0.45 % NaCl 1 250ml.bag @ 10. 04 UNITS/KG/HR 10 mls/hr IV .Q24H [facility] Rx#: [id number] Norepinephrine 32 mg In 9.209 Sodium Chloride 0.9% 218 ml @ 0.05 MCG/KG/MIN 2. 423 mls/hr IV .Q24H [facility] Rx#:[id number] Norepinephrine 8 mg In 255.231 516 488.710 Sodium Chloride 0.9% 250 ml @ 0.05 MCG/KG/MIN 9. 549 mls/hr IV .Q24H [facility] Rx#:[id number] Piperacillin-Tazobactam 3 100 .375 gm In Sodium Chloride 0.9% 100 ml @ 25 mls/hr IVPB Q8H [facility] Rx#: [id number] propofoL 1,000 mg In 122.024 77.976 73.414 Empty Bag 1 bag @ Titrate IV .Q0M [facility] Rx#: [id number] Tube Feeding 240 160 Output: Urine 835 1150 1000 Other: Voiding Method Indwelling Catheter Indwelling Catheter ABP, PAP, CO, CI - Last Documented Arterial Blood Pressure 105/62 - Labs CBC & Chem 7: 01/07/21 03:54 01/07/21 12:00 Labs: Abnormal Lab Results - Last 24 Hours (Table) 01/06/21 01/06/2101/06/21 Range/Units 13:05 13:39 13:39 WBC (3.8-10.6) k/uL RBC (4.30-5.90) m/uL Hgb (13.0-17.5) gm/dL Hct (39.0-53.0) % MCHC (31.0-37.0) g/dL RDW (11.5-15.5) % PT (9.0-12.0) sec INR (<1.2) APTT 65.3 H (22.0-30.0) sec ABG pCO2 (35-45) mmHg ABG pO2 (83-108) mmHg ABG O2 Saturation (94-97) % Sodium (137-145) mmol/L Potassium (3.5-5.1) mmol/L Carbon Dioxide (22-30) mmol/L BUN (9-20) mg/dL Creatinine (0.66-1.25) mg/dL Glucose (74-99) mg/dL POC Glucose (mg/dL) (75-99) mg/dL Calcium (8.4-10.2) mg/dL Phosphorus 4.7 H (2.5-4.5) mg/dL Total Bilirubin (0.2-1.3) mg/dL ALT (4-49) U/L Alkaline Phosphatase (38-126) U/L Total Protein (6.3-8.2) g/dL Albumin (3.5-5.0) g/dL Procalcitonin 5.12 H (0.02-0.09) ng/mL 01/06/21 01/06/21 01/06/21 Range/Units 18:15 18:17 23:38 WBC (3.8-10.6) k/uL RBC (4.30-5.90) m/uL Hgb (13.0-17.5) gm/dL Hct (39.0-53.0) % MCHC (31.0-37.0) g/dL RDW (11.5-15.5) % PT (9.0-12.0) sec INR (<1.2) APTT (22.0-30.0) sec ABG pCO2 (35-45) mmHg ABG pO2 (83-108) mmHg ABG O2 Saturation (94-97) % Sodium (137-145) mmol/L Potassium (3.5-5.1) mmol/L Carbon Dioxide (22-30) mmol/L BUN (9-20) mg/dL Creatinine (0.66-1.25) mg/dL Glucose (74-99) mg/dL POC Glucose (mg/dL) 182 H 154 H 205 H (75-99) mg/dL Calcium (8.4-10.2) mg/dL Phosphorus (2.5-4.5) mg/dL Total Bilirubin (0.2-1.3) mg/dL ALT (4-49) U/L Alkaline Phosphatase (38-126) U/L Total Protein (6.3-8.2) g/dL Albumin (3.5-5.0) g/dL Procalcitonin (0.02-0.09) ng/mL 01/07/21 01/07/21 01/07/21 Range/Units 03:54 03:54 03:54 WBC 28.5 H (3.8-10.6) k/uL RBC 3.63 L (4.30-5.90) m/uL Hgb 10.8 L (13.0-17.5) gm/dL Hct 34.9 L (39.0-53.0) % MCHC 30.9 L (31.0-37.0) g/dL RDW 16.3 H (11.5-15.5) % PT 30.0 H (9.0-12.0) sec INR 3.1 H (<1.2) APTT 75.9 H (22.0-30.0) sec ABG pCO2 (35-45) mmHg ABG pO2 (83-108) mmHg ABG O2 Saturation (94-97) % Sodium 131 L (137-145) mmol/L Potassium 3.4 L (3.5-5.1) mmol/L Carbon Dioxide 19 L (22-30) mmol/L BUN 60 H (9-20) mg/dL Creatinine 2.22 H (0.66-1.25) mg/dL Glucose 167 H (74-99) mg/dL POC Glucose (mg/dL) (75-99) mg/dL Calcium 7.8 L (8.4-10.2) mg/dL Phosphorus (2.5-4.5) mg/dL Total Bilirubin 2.5 H (0.2-1.3) mg/dL ALT 180 H (4-49) U/L Alkaline Phosphatase 197 H (38-126) U/L Total Protein 4.6 L (6.3-8.2) g/dL Albumin 2.4 L (3.5-5.0) g/dL Procalcitonin (0.02-0.09) ng/mL 01/07/21 01/07/21 01/07/21 Range/Units 04:00 12:00 12:02 WBC (3.8-10.6) k/uL RBC (4.30-5.90) m/uL Hgb (13.0-17.5) gm/dL Hct (39.0-53.0) % MCHC (31.0-37.0) g/dL RDW (11.5-15.5) % PT (9.0-12.0) sec INR (<1.2) APTT 61.1 H (22.0-30.0) sec ABG pCO2 33 L (35-45) mmHg ABG pO2 55 L* (83-108) mmHg ABG O2 Saturation 86.9 L (94-97) % Sodium (137-145) mmol/L Potassium (3.5-5.1) mmol/L Carbon Dioxide (22-30) mmol/L BUN (9-20) mg/dL Creatinine (0.66-1.25) mg/dL Glucose (74-99) mg/dL POC Glucose (mg/dL) 208 H (75-99) mg/dL Calcium (8.4-10.2) mg/dL Phosphorus (2.5-4.5) mg/dL Total Bilirubin (0.2-1.3) mg/dL ALT (4-49) U/L Alkaline Phosphatase (38-126) U/L Total Protein (6.3-8.2) g/dL Albumin (3.5-5.0) g/dL Procalcitonin (0.02-0.09) ng/mL Microbiology - Last 24 Hours (Table) 01/04/21 21:08 Gram Stain - Final Sputum Sputum Culture - Final Cristina albicans 01/05/21 06:50 Blood Culture - Preliminary Blood No Growth after 24 hours 01/06/21 04:00 Gram Stain - Preliminary Sputum Sputum Culture - Preliminary 01/05/21 17:35 Blood Culture - Preliminary Blood No Growth after 24 hours
--- NOTE | 2021-01-07 14:27 | P.PN ---
Subjective Progress Note Date: 01/07/21 Principal diagnosis: Acute hypoxic respiratory failure, secondary to acute systolic congestive heart failure and bilateral pleural effusions. 01/04/2021, the patient is struggling. Despite the fact that he is on room air oxygen, he seems to be uncomfortable and he keeps on 1 set up on a recliner. His oral intake is minimal. He has no stamina. He seems to be very much disco uraged and he feels at times that he wants to quit the treatment. In terms of his pulmonary status, he is on room air oxygen, I reviewed the chest x-ray from today and there is a moderate-sized left-sided pleural effusion. Right-sided pleural effusion has essentially recovered. Note that the patient has undergone bilateral thoracentesis. He continues to have signs of fluid overload with fluid in his upper and lower extremities with some fluid weeping from his skin in lower extremities. He is receiving Lasix 40 mg IV on a daily basis. Overall fluid balance over the past 24 hours has been in the order of negative to 80 mL. He continues to have episodes of atrial fibrillation with rapid ventricular response. Along with A. fib RVR, he became hypotensive and his urine output dropped. He was given IV albumin. He was given a bolus of 500 mL yesterday. He was started on amiodarone drip loading, initially on 1 mg per minute and later on 0.5 mg per minute. His current heart rate is around 110. His most recent blood pressure is 99/61. His serum albumin is at 2.9. INR is at 2.0. Creatinine is at 1.5 with a BUN of 59, sodium is at 132, serum bicarbonate 20. Oral intake is quite diminished at this point in time. His echocardiogram was showing a preserved LV function. Urology evaluated the patient. The recommendation was to keep in the Barrow catheter. He is completing a 5 day course of IV cefepime regarding pseudomonas aeruginosa in the urine with possible infection. He is afebrile for now. Surgical wound site is dry clean and intact. His last bowel movement was 2 days ago. Patient was reevaluated today on 01/05/21, patient deteriorated last night, and he was intubated and placed on mechanical ventilation. He is presently on FiO2 of 60% tidal volume of 400 assist control rate of 22 and PEEP of 10. ABG showed a pO2 of 74 pCO2 of 39 pH of 7.39. Patient is sedated, he is on propofol at 30 mcg/kg/m, hypotensive requiring norepinephrine at 0.25 mcg/kg/m, is also on amiodarone drip at 1 mg/m, and IV fluid at KVO. Patient is not making much urine, does not seem to be making any urine output with Lasix IV push, hence I recommended starting the patient on Lasix at 10 mg per hour drip. Chest x-ray is consistent with congestive heart failure, patient is extremely edematous, he has abdominal distention, abdominal wall edema, and significant bipedal edema. Patient will be pancultured, he had a lactic acid of 3.0 earlier today. Cortisol level is 55. He believes he got is 17.3 hemoglobin is 12. Electrolytes are relatively normal except for bicarb of 20 BUN is 61 creatinine 1.73. Liver enzymes are a bit elevated but they seem to be improving over the last few days. Patient again is now on Lasix drip at 10 mg per hour, he is on Zosyn empirically. She is also on GI prophylaxis, and on bronchodilators. He was on Coumadin with INR of 1.8 today, and I would likely recommend heparin, patient will eventually need a PICC line placed tomorrow, today I went ahead and placed on arterial line because of his profound hypotension requiring relatively high dose of norepinephrine. Reevaluated today on 01/06/21, patient remains in the ICU, remains intubated and mechanically ventilated. He is on assist control rate of 20 to tell volume is 400 FiO2 50% and PEEP of 10. ABG today showed a pO2 of 105 pCO2 of 32 pH of 7.32. Chest x-ray continues to show evidence of pulmonary edema. Patient remains on Lasix drip at 10 mg per hour, amiodarone at 1 mg/m, propofol at 20 heparin drip, is also on norepinephrine at 0.3 mcg/kg/m. Patient continues to h ave leukocytosis, cultures so far nondiagnostic although he did have a UTI. Blood cultures are negative so far. Infectious disease consultation was initiated, patient is presently on Zosyn. Echocardiogram showed no evidence of temporal not, but it did show evidence of ejection fraction of 45%. Patient remains in atrial fibrillation, however rate seems to be fairly well controlled. Nutrition-hernandez the patient will be started on enteral feeding today via orogastric tube. WBC count today is up to 29.6 hemoglobin is 10.8 electrolytes are normal renal profile showed slight worsening with a BUN of 59 and creatinine 1.99, however the patient seems to be improving with diuresis, and renal output seems to be better. Lactic acid is 2.2 today. Liver enzymes are borderline elevated. Reevaluated today on 01/07/21, remains in the ICU, intubated and mechanically ventilated. He is on assist control rate of 22, tidal volume 400 FiO2 70%, patient was on 50% however he desaturated overnight, I went ahead today and increased the PEEP to 12, and I cut down the FiO2 to 55% from 70%. ABG this mor linnea on 50% showed a pO2 of 55 pCO2 33 pH of 7.42. Patient remains on norepinephrine at 0.4 mcg/kg/m, amiodarone at 1 mg/m, and I will cut down to 0.5. He is on propofol at 20 heparin drip, Lasix at 10 mg per hour, and IV fluid at KVO. Urine output is excellent, however patient remains in positive fluid balance, and nephrology is planning ultrafiltration on the patient sometime today. Patient remains in atrial fibrillation with a relatively controlled rate. Remains on enteral feeding. Remains on antibiotics. Blood cultures and sputum cultures are nondiagnostic. His urine was positive for pseudomonas aeruginosa on admission. Patient is sedated, but not paralysis. Objective - Vital Signs Vital signs: Vital Signs Temp 97.7 F 01/07/21 12:00 Pulse 85 01/07/21 12:00 Resp 21 01/07/21 12:00 BP 72/54 01/06/21 06:00 Pulse Ox 91 L 01/07/21 12:00 Intake & Output 01/06/21 01/07/21 01/07/21 18:59 06:59 18:59 Intake Total 780.099 6497.003 1104.000 Output Total 835 1150 1000 Balance 152.149 529.003 104.000 Weight 103.4 kg 108 kg Intake: IV 120 120 80 .9 @ 10mL/hr 120 120 80 Intake, IV Titration 246.783 9703.003 864.000 Amount Amiodarone 360 mg In 371.663 200 200 Dextrose 5% in Water 200 ml @ 1 MG/MIN 33.333 mls/ hr IV .Q6H [facility] Rx#: [id number] Anidulafungin 200 mg In 200 Sodium Chloride 0.9% 200 ml @ 84 mls/hr IVPB ONCE ONE Rx#:[id number] Furosemide 100 mg In 100 92.5 92.667 Sodium Chloride 0.9% 90 ml @ 10 MG/HR 10 mls/hr IV .Q10H [facility] Rx#: [id number] Heparin Sod,Pork in 0.45% 18.231 132.527 NaCl 25,000 unit In 0.45 % NaCl 1 250ml.bag @ 10. 04 UNITS/KG/HR 10 mls/hr IV .Q24H [facility] Rx#: [id number] Norepinephrine 32 mg In 9.209 Sodium Chloride 0.9% 218 ml @ 0.05 MCG/KG/MIN 2. 423 mls/hr IV .Q24H [facility] Rx#:[id number] Norepinephrine 8 mg In 255.231 516 488.710 Sodium Chloride 0.9% 250 ml @ 0.05 MCG/KG/MIN 9. 549 mls/hr IV .Q24H [facility] Rx#:[id number] Piperacillin-Tazobactam 3 100 .375 gm In Sodium Chloride 0.9% 100 ml @ 25 mls/hr IVPB Q8H [facility] Rx#: [id number] propofoL 1,000 mg In 122.024 77.976 73.414 Empty Bag 1 bag @ Titrate IV .Q0M [facility] Rx#: [id number] Tube Feeding 240 160 Output: Urine 835 1150 1000 Other: Voiding Method Indwelling Catheter Indwelling Catheter ABP, PAP, CO, CI - Last Documented Arterial Blood Pressure 105/62 - Exam Physical Exam: Revealed 80-year-old white male remains sedated, on propofol, intubated and mechanically ventilated. Head: Atraumatic normocephalic. HEENT:[Neck is supple.] [No neck masses.] [No thyromegaly.] [No JVD.] Endotracheal tube and orogastric tube are intact. Chest: [Symmetrical chest expansion crackles at the bases bilaterally Cardiac Exam: Irregular irregular rhythm, 2/6 systolic murmur thought the precordium. Abdomen: Lightly distended, significant abdominal wall edema is noted, diminished bowel sounds.] Extremities: 2+ bipedal edema, no clubbing, no cyanosis. Neurological Exam: [Cannot be assessed, patient is sedated on propofol. Psychiatric: Could not be assessed. Skin: No rashes except the patient has areas of ecchymosis, and abrasions especially in the left forearm area. - Labs CBC & Chem 7: 01/07/21 03:54 01/07/21 12:00 Labs: Abnormal Lab Results - Last 24 Hours (Table) 01/06/21 01/06/21 01/06/21 Range/Units 13:05 13:39 13:39 WBC (3.8-10.6) k/uL RBC (4.30-5.90) m/uL Hgb (13.0-17.5) gm/dL Hct (39.0-53.0) % MCHC (31.0-37.0) g/dL RDW (11.5-15.5) % PT (9.0-12.0) sec INR (<1.2) APTT 65.3 H (22.0-30.0) sec ABG pCO2 (35-45) mmHg ABG pO2 (83-108) mmHg ABG O2 Saturation (94-97) % Sodium (137-145) mmol/L Potassium (3.5-5.1) mmol/L Carbon Dioxide (22-30) mmol/L BUN (9-20) mg/dL Creatinine (0.66-1.25) mg/dL Glucose (74-99) mg/dL POC Glucose (mg/dL) (75-99) mg/dL Calcium (8.4-10.2) mg/dL Phosphorus 4.7 H (2.5-4.5) mg/dL Total Bilirubin (0.2-1.3) mg/dL ALT (4-49) U/L Alkaline Phosphatase (38-126) U/L Total Protein (6.3-8.2) g/dL Albumin (3.5-5.0) g/dL Procalcitonin 5.12 H (0.02-0.09) ng/mL 01/06/21 01/06/21 01/06/21 Range/Units 18:15 18:17 23:38 WBC (3.8-10.6) k/uL RBC (4.30-5.90) m/uL Hgb (13.0-17.5) gm/dL Hct (39.0-53.0) % MCHC (31.0-37.0) g/dL RDW (11.5-15.5) % PT (9.0-12.0) sec INR (<1.2) APTT (22.0-30.0) sec ABG pCO2 (35-45) mmHg ABG pO2 (83-108) mmHg ABG O2 Saturation (94-97) % Sodium (137-145) mmol/L Potassium (3.5-5.1) mmol/L Carbon Dioxide (22-30) mmol/L BUN (9-20) mg/dL Creatinine (0.66-1.25) mg/dL Glucose (74-99) mg/dL POC Glucose (mg/dL) 182 H 154 H 205 H (75-99) mg/dL Calcium (8.4-10.2) mg/dL Phosphorus (2.5-4.5) mg/dL Total Bilirubin (0.2-1.3) mg/dL ALT (4-49) U/L Alkaline Phosphatase (38-126) U/L Total Protein (6.3-8.2) g/dL Albumin (3.5-5.0) g/dL Procalcitonin (0.02-0.09) ng/mL 01/07/21 01/07/21 01/07/21 Range/Units 03:54 03:54 03:54 WBC 28.5 H (3.8-10.6) k/uL RBC 3.63 L (4.30-5.90) m/uL Hgb 10.8 L (13.0-17.5) gm/dL Hct 34.9 L (39.0-53.0) % MCHC 30.9 L (31.0-37.0) g/dL RDW 16.3 H (11.5-15.5) % PT 30.0 H (9.0-12.0) sec INR 3.1 H (<1.2) APTT 75.9 H (22.0-30.0) sec ABG pCO2 (35-45) mmHg ABG pO2 (83-108) mmHg ABG O2 Saturation (94-97) % Sodium 131 L (137-145) mmol/L Potassium 3.4 L (3.5-5.1) mmol/L Carbon Dioxide 19 L (22-30) mmol/L BUN 60 H (9-20) mg/dL Creatinine 2.22 H (0.66-1.25) mg/dL Glucose 167 H (74-99) mg/dL POC Glucose (mg/dL) (75-99) mg/dL Calcium 7.8 L (8.4-10.2) mg/dL Phosphorus (2.5-4.5) mg/dL Total Bilirubin 2.5 H (0.2-1.3) mg/dL ALT 180 H (4-49) U/L Alkaline Phosphatase 197 H (38-126) U/L Total Protein 4.6 L (6.3-8.2) g/dL Albumin 2.4 L (3.5-5.0) g/dL Procalcitonin (0.02-0.09) ng/mL 01/07/21 01/07/21 01/07/21 Range/Units 04:00 12:00 12:02 WBC (3.8-10.6) k/uL RBC (4.30-5.90) m/uL Hgb (13.0-17.5) gm/dL Hct (39.0-53.0) % MCHC (31.0-37.0) g/dL RDW (11.5-15.5) % PT (9.0-12.0) sec INR (<1.2) APTT 61.1 H (22.0-30.0) sec ABG pCO2 33 L (35-45) mmHg ABG pO2 55 L* (83-108) mmHg ABG O2 Saturation 86.9 L (94-97) % Sodium (137-145) mmol/L Potassium (3.5-5.1) mmol/L Carbon Dioxide (22-30) mmol/L BUN (9-20) mg/dL Creatinine (0.66-1.25) mg/dL Glucose (74-99) mg/dL POC Glucose (mg/dL) 208 H (75-99) mg/dL Calcium (8.4-10.2) mg/dL Phosphorus (2.5-4.5) mg/dL Total Bilirubin (0.2-1.3) mg/dL ALT (4-49) U/L Alkaline Phosphatase (38-126) U/L Total Protein (6.3-8.2) g/dL Albumin (3.5-5.0) g/dL Procalcitonin (0.02-0.09) ng/mL Microbiology - Last 24 Hours (Table) 01/04/21 21:08 Gram Stain - Final Sputum Sputum Culture - Final Cristina albicans 01/05/21 06:50 Blood Culture - Preliminary Blood No Growth after 24 hours 01/06/21 04:00 Gram Stain - Preliminary Sputum Sputum Culture - Preliminary 01/05/21 17:35 Blood Culture - Preliminary Blood No Growth after 24 hours Assessment and Plan Assessment: Impression: Acute hypoxic respiratory failure secondary to acute on chronic systolic congestive heart failure with bilateral pleural effusions Coronary artery disease and recent 4 vessel bypass grafting discharged from the hospital on 12/25, echocardiogram showed mildly impaired left ventricle with ejection fraction of 45% Chronic atrial fibrillation. Acute kidney injury possible cardiorenal syndrome. Renal functioning seems to be worsening, hence the patient is being considered for ultrafiltration to improve fluid balance. Type 2 diabetes. Dyslipidemia. Hypotension requiring pressors could be secondary to hypoperfusion and LV dysfunction could also be related to sepsis cultures are negative except for positive urine cultures. Urine is positive for Pseudomonas. Elevated liver enzymes, could be hypoperfusional in nature. Acute urinary tract infection secondary to pseudomonas aeruginosa. Extensive edema, tinea Lasix drip, and consider ultrafiltration today. Profound weakness and debility Recommendation: Continue ventilatory support. His PEEP was increased at 12, FiO2 down to 55%. Discussed within mirror framer, patient will likely benefit from ultrafiltration. Continue pressors.Titrate accordingly. Cut down amiodarone 20.5 mg/m. Continue Lasix at 10 mg per hour. Continue heparin. Continue Zosyn.Accident disease was consulted Nutritional support. Tinea enteral feeding. GI DVT prophylaxis. We will continue to follow. Critical care time is over 30 minutes not including time spent on procedures. Time with Patient: Greater than 30
[2021-01-07] MEDS: AMIODARONE 450 MG in DEXTROSE 5% IN WATER 250 ML IV SCH ×2 (14:42)
[2021-01-07] MEDS ORDERED: HEPARIN SODIUM 1,000 UN/ML (10ML VL) ONE (17:00)
[2021-01-07] MEDS ORDERED: LIDOCAINE 1% INJ 10MG/ML (20 ML MDV) ONE (17:00)
--- NOTE | 2021-01-07 17:17 | XR ---
EXAMINATION TYPE: XR chest 1V DATE OF EXAM: 01/07/2021 COMPARISON: Today HISTORY: Respiratory failure TECHNIQUE: Single view FINDINGS: Endotracheal tube is 2 cm from the cassie. There is right jugular catheter with tip in the superior vena cava. There is moderately severe pulmonary interstitial and airspace edema. There is na sogastric tube in the stomach. There are chest leads. IMPRESSION: Severe pulmonary edema without change. This is consistent with heart failure or RDS. Bila teral pleural effusions.
[2021-01-07] MEDS ORDERED: POTASSIUM BICARBONATE/CIT AC 20 MEQ TABLET.EFF PO ONE (18:07)
[2021-01-07] MEDS: ASCORBIC ACID 500 MG TAB PO SCH (18:34)
[2021-01-07] MEDS: CALCIUM CARBONATE 500 MG CHEWABLE PO SCH (18:34)
[2021-01-07] MEDS: CHOLECALCIFEROL 25 MCG (1000 IU) TABLET PO SCH (18:34)
[2021-01-07] MEDS: ASPIRIN 81 MG PO SCH (18:34)
[2021-01-07 18:41] LABS: Glucose,Whole Blood 180 mg/dL (75-99)
--- NOTE | 2021-01-07 19:40 | PCN ---
DATE OF PROCEDURE: 01/07/2021 PREOPERATIVE DIAGNOSIS: Acute and chronic renal failure. POSTOPERATIVE DIAGNOSIS: Acute on chronic renal failure. PROCEDURE: Ultrasound-guided dialysis catheter placement, right jugular approach. PROCEDURE DESCRIPTION: The patient was seen in the room. Right side of the neck and chest was prepped and draped in usual sterile manner. Lidocaine 1% plain was infiltrated in the neck area. Then ultrasound-guided micropuncture was introduced into the right jugular vein. Micropuncture guidewire was passed and a 4-Icelandic dilator was advanced on top of the guidewire. Then we passed a regular guidewire. Then we passed a dilator on the top of the guidewire. Then we placed a dialysis catheter. Guidewire was removed, flushed with heparin saline and hep-locked, secured with 3-0 nylon. Dressing was applied. Patient tolerated the procedure well. KRZYSZTOF / GWEN: [id number] / MTDD
[2021-01-07] MEDS: MONTELUKAST 10 MG TAB PO SCH (20:39)
[2021-01-07] MEDS: SENNOSIDES-DOCUSATE SODIUM 1 EACH TAB PO SCH (20:39)
[2021-01-07] MEDS: LATANOPROST 0.005% OPHTH DROPS 2.5 ML BTL BOTH EYES SCH (20:40)
--- NOTE | 2021-01-07 23:12 | PN ---
PROGRESS NOTE DATE OF SERVICE: 01/07/2021 REASON FOR FOLLOWUP: Leukocytosis. INTERVAL HISTORY: The patient is afebrile. The patient is intubated on the vent. FiO2 is currently 55%. No significant purulent secretions in the ET, diarrhea or any other changes reported by the nursing staff. Patient remains intubated on the vent. PHYSICAL EXAMINATION: Blood pressure 106/63, pulse 93, temperature 98. He is 98% on 55% FiO2. General description is an elderly male lying in bed in no distress. RESPIRATORY SYSTEM: Unlabored breathing. Decreased intensity of breath sounds. No wheeze. HEART: S1, S2. Regular rate and rhythm. ABDOMEN: Soft. Mildly distended. No guarding or rigidity. LABS: Hemoglobin is 10.1, white count 28.5. creatinine is 2.2. DIAGNOSTIC IMPRESSION AND PLAN: Patient with elevated white count with a component of pneumonia plus/minus oropharyngeal candidiasis. Patient is covered with Zosyn and Eraxis. That will be continued. White count did not jump any further today and will be monitored closely. Continue with supportive care. MMODL / IJN: [id number] / MTDD
[2021-01-07 23:51] LABS: Glucose,Whole Blood 201 mg/dL (75-99)
[2021-01-08] MEDS: PIPERACILLIN-TAZOBACTAM 3.375 GM in SODIUM CHLORIDE 0.9% 100 ML IVPB SCH ×3 (04:38→20:15)
[2021-01-08] MEDS: AMIODARONE 450 MG in DEXTROSE 5% IN WATER 250 ML IV SCH ×4 (04:38→21:11)
[2021-01-08 05:10] LABS: Ionized Calcium 4.4 mg/dL (4.5-5.3)
[2021-01-08 05:17] LABS: Anisocytosis Slight; Basophils % (A) 0 %; Eosinophils # (A) 0.2 k/uL (0-0.7); Eosinophils % (A) 1 %; HCT 34.2 % (39.0-53.0); HGB 10.7 gm/dL (13.0-17.5); Hypochromasia Marked; Lymphocytes % (A) 5 %; MCH 29.6 pg (25.0-35.0); MCHC 31.2 g/dL (31.0-37.0); MCV 94.8 fL (80.0-100.0); Mean Platelet Volume 9.3; Monocytes # (A) 0.7 k/uL (0-1.0); Monocytes % (A) 3 %; Neutrophils # (A) 18.3 k/uL (1.3-7.7); Neutrophils % (A) 90 %; Poikilocytosis Marked; RBC 3.61 m/uL (4.30-5.90); RDW 16.5 % (11.5-15.5); WBC 20.3 k/uL (3.8-10.6)
[2021-01-08 05:19] LABS: INR 2.5 (<1.2); Partial Thromboplastin Time 39.8 sec (22.0-30.0); Prothrombin Time 23.8 sec (9.0-12.0)
[2021-01-08 05:21] LABS: Albumin 2.2 g/dL (3.5-5.0); Calcium 7.8 mg/dL (8.4-10.2); Magnesium 2.2 mg/dL (1.6-2.3); Potassium 3.5 mmol/L (3.5-5.1); Total Bilirubin 2.4 mg/dL (0.2-1.3); Total Protein 4.5 g/dL (6.3-8.2)
[2021-01-08 05:27] LABS: ABG HCO3 24 mmol/L (21-25); ABG Oxygen Saturation 98.3 % (94-97); ABG PCO2 37 mmHg (35-45); ABG PH 7.42 (7.35-7.45); ABG PO2 95 mmHg (83-108); Allen Test Performed? Yes
[2021-01-08 06:20] LABS: Platelet Count 93 k/uL (150-450); Polychromasia Present
[2021-01-08] MEDS: POTASSIUM CHLORIDE 20 MEQ in WATER FOR INJECTION 1 100ML.BAG IVPB SCH ×2 (06:29→08:58)
[2021-01-08] MEDS: INSULIN ASPART (NovoLOG) 100 UNIT/ML VIAL SQ SCH ×4 (06:29→19:28)
--- NOTE | 2021-01-08 06:44 | XR ---
EXAMINATION TYPE: XR chest 1V portable DATE OF EXAM: 01/08/2021 CLINICAL HISTORY: Difficulty breathing progress study. Postopen cardiac surgery December 16. TECHNIQUE: Single AP portable semiupright view of the chest is obtained. COMPARISON: Chest x-ray from one day earlier and older studies FINDINGS: Stable endotracheal and orogastric tubes. Stable large bore right internal jugular dialysi s catheter. Stable right-sided PICC line. Persistent mild cardiomegaly. Overlying sternal wires and mediastinal clips along with left atrial ap pendage clip all redemonstrated. Persistent diffuse opacities consistent with moderate to severe alve olar and interstitial edema bilaterally along with likely small to moderate size bilateral pleural ef fusions. Degenerative change bilateral glenohumeral joints redemonstrated. IMPRESSION: Persistent mild cardiomegaly with small to moderate sized bilateral pleural effusions and moderate to severe bilateral alveolar and interstitial edema consistent with fluid overload state al l redemonstrated. No significant change from one day earlier.
[2021-01-08] MEDS: NOREPINEPHRINE 32 MG in SODIUM CHLORIDE 0.9% 218 ML IV SCH (06:54)
[2021-01-08] MEDS: FUROSEMIDE 100 MG in SODIUM CHLORIDE 0.9% 90 ML IV SCH ×2 (06:54→16:38)
[2021-01-08] MEDS ORDERED: CALCIUM GLUCONATE 2 GM in SODIUM CHLORIDE 0.9% 100 ML IVPB ONE (08:00)
--- NOTE | 2021-01-08 08:05 | P.PN ---
Subjective Progress Note Date: 01/08/21 Principal diagnosis: Shortness of breath, bilateral pleural effusions, elevated LFTs, YVETTE. 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 Remains intubated and sedated on mechanical ventilation, currently FiO2 50%, PEEP 12. Remains on IV amiodarone with dosage decreased yesterday by pulmonology, continuous Lasix drip, propofol for sedation, and IV Levophed which has decreased in dose since yesterday. Remains afebrile, WBC trending down, Gram stain from sputum culture sent 01/06/2021 demonstrates no growth so far, continues on Eraxis and Zosyn per infectious disease recommendations. Remains in atrial fibrillation, rate in the 80-90s. Trickle tube feedings continue. Urine output adequate. Patient has had multiple scans of his abdomen, most recent was CT demonstrating mild abdominopelvic ascites and small bilateral pleural effusions, lower lobe and inferior lingular consolidation suspicious for aspiration pneumonitis, and continued severe anasarca. Right internal jugular hemodialysis catheter placed yesterday, only able to remove 600 mL of fluid due to hypotension. Objective - Vital Signs Vital signs: Vital Signs Temp 94.4 F L 01/08/21 04:00 Pulse 89 01/08/21 07:00 Resp 22 01/08/21 07:00 BP 82/72 01/07/21 22:00 Pulse Ox 96 01/08/21 07:00 Intake & Output 01/07/21 01/08/21 01/08/21 18:59 06:59 18:59 Intake Total 1490.698 990.161 10 Output Total 2175 1170 200 Balance -684.302 -179.839 -190 Weight 108 kg Intake: IV 130 110 10 .9 @ 10mL/hr 130 110 10 Intake, IV Titration 1120.698 680.161 Amount Amiodarone 360 mg In 200 Dextrose 5% in Water 200 ml @ 1 MG/MIN 33.333 mls/ hr IV .Q6H BRENDA Rx#: [id number] Amiodarone 450 mg In 232.227 Dextrose 5% in Water 250 ml @ 0.5 MG/MIN 16.667 mls/hr IV .Q15H BRENDA Rx#: [id number] Furosemide 100 mg In 184.167 100 Sodium Chloride 0.9% 90 ml @ 10 MG/HR 10 mls/hr IV .Q10H BRENDA Rx#: [id number] Heparin Sod,Pork in 0.45% 73.71 NaCl 25,000 unit In 0.45 % NaCl 1 250ml.bag @ 10. 04 UNITS/KG/HR 10 mls/hr IV .Q24H BRENDA Rx#: [id number] Norepinephrine 32 mg In 74.407 174.224 Sodium Chloride 0.9% 218 ml @ 0.05 MCG/KG/MIN 2. 423 mls/hr IV .Q24H BRENDA Rx#:[id number] Norepinephrine 8 mg In 488.710 Sodium Chloride 0.9% 250 ml @ 0.05 MCG/KG/MIN 9. 549 mls/hr IV .Q24H BRENDA Rx#:[id number] propofoL 1,000 mg In 173.414 100 Empty Bag 1 bag @ Titrate IV .Q0M BRENDA Rx#: [id number] Tube Feeding 240 200 Output: Urine 1575 1170 200 Hemodialysis 600 Other: Voiding Method Indwelling Catheter Indwelling Catheter ABP, PAP, CO, CI - Last Documented Arterial Blood Pressure 93/52 - Exam CONSTITUTIONAL: Currently sedated and mechanically ventilated, in no acute distress RESPIRATORY: Lungs sounds diminished bilaterally with coarse breath sounds in the bases. Respirations even, nonlabored mechanical ventilation. Currently settings assist control mode, FiO2 50%, PEEP 12, tidal volume 400, respiratory rate 22 CARDIOVASCULAR: S1, S2 present. Irregular rate and rhythm, atrial fibrillation on telemetry with rate in the 80-90s. Sternum stable. Palpable peripheral pulses bilaterally. Generalized edema present. Heart hugger, antibolism stockings, SCDs present. GASTROINTESTINAL: Abdomen soft, nontender, slightly distended. Hypoactive bowel sounds present 4 quadrants with tympany noted with percussion. Tube feedings infusing 20 mL per hour with minimal residual per nursing. Positive flatus noted during bath per nursing, no bowel movement yet GENITOURINARY: Barrow present draining yellow urine. Output overnight 70-150 mL per hour, 2745 mL in the last 24 hours INTEGUMENTARY: Skin is warm and dry. Anterior chest incision well approximated. Left radial artery harvest site opening, slough tissue present NEUROLOGIC: Currently sedated with propofol, does withdraw to painful stimuli INVASIVE LINES AND TUBES: Left midline IV, right PICC line, right radial arterial line, right internal jugular hemodialysis catheter present - Allied health notes Allied health notes reviewed: nursing - Labs CBC & Chem 7: 01/08/21 04:45 01/08/21 04:45 Labs: Abnormal Lab Results - Last 24 Hours (Table) 01/07/21 01/07/21 01/07/21 Range/Units 12:00 12:02 18:39 WBC (3.8-10.6) k/uL RBC (4.30-5.90) m/uL Hgb (13.0-17.5) gm/dL Hct (39.0-53.0) % RDW (11.5-15.5) % Plt Count (150-450) k/uL Neutrophils # (1.3-7.7) k/uL PT (9.0-12.0) sec INR (<1.2) APTT 61.1 H (22.0-30.0) sec ABG O2 Saturation (94-97) % Sodium (137-145) mmol/L BUN (9-20) mg/dL Creatinine (0.66-1.25) mg/dL Glucose (74-99) mg/dL POC Glucose (mg/dL) 208 H 180 H (75-99) mg/dL Calcium (8.4-10.2) mg/dL Ionized Calcium Vincenzo (4.5-5.3) mg/dL Total Bilirubin (0.2-1.3) mg/dL ALT (4-49) U/L Alkaline Phosphatase (38-126) U/L Total Protein (6.3-8.2) g/dL Albumin (3.5-5.0) g/dL 01/07/21 01/08/21 01/08/21 Range/Units 23:49 04:45 04:45 WBC 20.3 H (3.8-10.6) k/uL RBC 3.61 L (4.30-5.90) m/uL Hgb 10.7 L (13.0-17.5) gm/dL Hct 34.2 L (39.0-53.0) % RDW 16.5 H (11.5-15.5) % Plt Count 93 L (150-450) k/uL Neutrophils # 18.3 H (1.3-7.7) k/uL PT 23.8 H (9.0-12.0) sec INR 2.5 H (<1.2) APTT 39.8 H (22.0-30.0) sec ABG O2 Saturation (94-97) % Sodium (137-145) mmol/L BUN (9-20) mg/dL Creatinine (0.66-1.25) mg/dL Glucose (74-99) mg/dL POC Glucose (mg/dL) 201 H (75-99) mg/dL Calcium (8.4-10.2) mg/dL Ionized Calcium Vincenzo (4.5-5.3) mg/dL Total Bilirubin (0.2-1.3) mg/dL ALT (4-49) U/L Alkaline Phosphatase (38-126) U/L Total Protein (6.3-8.2) g/dL Albumin (3.5-5.0) g/dL 01/08/21 01/08/21 Range/Units 04:45 05:17 WBC (3.8-10.6) k/uL RBC (4.30-5.90) m/uL Hgb (13.0-17.5) gm/dL Hct (39.0-53.0) % RDW (11.5-15.5) % Plt Count (150-450) k/uL Neutrophils # (1.3-7.7) k/uL PT (9.0-12.0) sec INR (<1.2) APTT (22.0-30.0) sec ABG O2 Saturation 98.3 H (94-97) % Sodium 131 L (137-145) mmol/L BUN 58 H (9-20) mg/dL Creatinine 2.05 H (0.66-1.25) mg/dL Glucose 189 H (74-99) mg/dL POC Glucose (mg/dL) (75-99) mg/dL Calcium 7.8 L (8.4-10.2) mg/dL Ionized Calcium Vincenzo 4.4 L (4.5-5.3) mg/dL Total Bilirubin 2.4 H (0.2-1.3) mg/dL ALT 132 H (4-49) U/L Alkaline Phosphatase 192 H (38-126) U/L Total Protein 4.5 L (6.3-8.2) g/dL Albumin 2.2 L (3.5-5.0) g/dL Microbiology - Last 24 Hours (Table) 01/05/21 17:35 Blood Culture - Preliminary Blood No Growth after 48 hours 01/04/21 21:08 Gram Stain - Final Sputum Sputum Culture - Final Daina albicans 01/05/21 06:50 Blood Culture - Preliminary Blood No Growth after 24 hours 01/06/21 04:00 Gram Stain - Preliminary Sputum Sputum Culture - Preliminary - Imaging and Cardiology Chest x-ray: report reviewed, image reviewed Assessment and Plan Assessment: 1. Shortness of breath 2. Elevated LFTs, likely from hepatic congestion secondary to heart failure, down trending 3. Bilateral pleural effusions, drained right 650 mL, left 1200 mL 12/30/20 4. YVETTE, possibly from obstructive uropathy 5. Coronary artery disease status post PCI to the LAD in 2005 and subsequent 4 vessel CABG on 12/16/2020 6. Previously preserved left ventricular function, mildly impaired left ventricular systolic function with EF 45-50% on TTE 12/28/20, 50-55% on TTE 01/05/2021 7. Chronic atrial fibrillation on Coumadin for anticoagulation with supratherapeutic INR on admission, status post exclusion of the left atrial appendage 8. History of hypertension, currently on IV levo for hypotension 9. History of hyperlipidemia, treated 10. Diet controlled diabetes, recent hemoglobin A1c 6.2% 11. Obstructive sleep apnea on home CPAP, was not on at [facility] 12. Previous pituitary tumor 13. Never smoker, preoperative FEV1 91% of predicted 14. Prior daily wine consumption 15. 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 Acute hypoxemic respiratory failure, likely from fluid overload, requiring intubation and mechanical ventilation 01/04/2021 17. Metabolic acidosis 18. Urinary tract infection, urine culture positive for pseudomonas aeruginosa 19. Leukocytosis, sputum culture 01/04 positive for daina, sputum culture from 01/06 preliminarily negative Plan: 1. Continue aspirin, low-dose beta junito. Hold statin until liver enzymes returned to normal 2. Continue IV amiodarone per recommendations from cardiology, decreased yesterday by actuarial associate. IV heparin discontinued yesterday by actuarial associate due to increased bleeding at dialysis cath site 3. Wean levo as tolerated, continue midodrine 4. Mechanical ventilator management per pulmonology 5. IV antibiotics per infectious disease recommendations 6. Will monitor daily labs and x-rays. Will give 2 gm calcium gluconate. 7. Avoid nephrotoxins, IV Lasix, ultrafiltration per nephrology 8. Continue sternal precautions 9. Continue tube feedings per dietary recommendations, increase as tolerated. Suppository daily until bowel movement 10. Keep Barrow catheter in place per urologist recommendations. 11. GI and DVT prophylaxis 12. Medical management of other comorbidities per primary care service 13. More recommendations to follow Time with Patient: Greater than 30
[2021-01-08] MEDS: IPRATROPIUM-ALBUTEROL 3 ML NEB INHALATION SCH ×4 (08:32→19:49)
[2021-01-08] MEDS: bisacodyL 10 MG SUPP RECTAL SCH (08:58)
[2021-01-08] MEDS: METOPROLOL TARTRATE 12.5 MG TAB PO SCH ×2 (08:58→20:53)
[2021-01-08] MEDS: metOLazone 5 MG TAB PO SCH (08:58)
[2021-01-08] MEDS: CHLORHEXIDINE GLUCONATE 15 ML CUP MUCOUS MEM SCH ×2 (08:58→20:58)
[2021-01-08] MEDS: LIDOCAINE 5% PATCH TOPICAL SCH (08:58)
--- NOTE | 2021-01-08 09:00 | PN ---
PROGRESS NOTE Mr. Valero is a 80-year-old male who is status post coronary artery bypass grafting, history of chronic persistent atrial fibrillation, who was readmitted to the hospital with symptoms of progressive dyspnea and respiratory failure. He has worsening renal function, and in spite of good urine output he continues to be fluid-overloaded. He underwent ultrafiltration yesterday but did not remove a lot of fluid. He remains intubated and sedated. He continues to be on amiodarone 0.5 mg drip to control his ventricular response for the atrial fibrillation. He has no ventricular ectopic activity. There are no pauses noted. He is getting tube feeding. His urine cultures were positive for Pseudomonas. He continues to be at this time in addition to the IV amiodarone on aspirin. His IV heparin was on hold because of oozing around the dialysis catheter. He is on Lasix drip, Zaroxolyn 5 mg daily, metoprolol tartrate 12.5 mg twice a day. He is on Zosyn. PHYSICAL EXAMINATION: Blood pressure is running in the high 90s to 100 with a heart rate in the 80s and 90s. LUNGS: Clear anteriorly. HEART: Irregularly irregular. S1, S2. No S3, with systolic murmur. No diastolic murmur. ABDOMEN: Soft. Positive bowel sounds. EXTREMITIES: One to two plus edema. LAB DATA: White blood cells down to 20.3, hemoglobin 10.7. His INR is 2.5. His pH is 7.42, pCO2 of 37, PO2 of 95. BUN and creatinine of 58 and 2.05, which has improved compared to yesterday. His ALT is down to 132. IMPRESSION: 1. Respiratory failure with fluid overload in a patient with overall preserved systolic function consistent with fluid overload with preserved systolic function. 2. Status post coronary artery bypass grafting. 3. Renal failure with good urine output. Patient is undergoing ultrafiltration. 4. Possible infectious process. 5. Chronic persistent atrial fibrillation. 6. Shock liver, improved. 7. Prior history of hyperlipidemia. RECOMMENDATIONS: Will continue supportive care at this time. His leukocytosis is improving. I am hopeful that we can remove more fluid and improve his respiratory status to attempt weaning and extubation. He appears to be auto anticoagulated at this time. We will follow his INR and, depending on his progress, further recommendations will be made. MMODL / IJN: [id number] / YUAN
[2021-01-08] MEDS: MIDODRINE 5 MG TAB PO SCH ×3 (09:16→17:14)
[2021-01-08] MEDS: BACITRACIN OINT 1 EACH PACKET TOPICAL SCH ×2 (09:18→20:54)
[2021-01-08] MEDS: PANTOPRAZOLE 40 MG/10 ML VIAL IVP SCH (09:18)
[2021-01-08] MEDS: HEPARIN SOD,PORK IN 0.45% NACL 25,000 UNIT in 0.45% NACL 1 250ML.BAG IV SCH (09:19)
--- NOTE | 2021-01-08 09:25 | P.PN ---
Subjective Patient is seen in follow-up for acute kidney injury. Renal function stable. Currently on Lasix drip at 10 mL an hour. Urine output about 100-125 mL an hour. Remains on Levophed. Intubated. On 50% FiO2. On amiodarone drip for A. fib. Only tolerated about 500 mL of ultrafiltration yesterday due to hypotension. Vital signs are stable. On vasopressor support. General: Intubated. HEENT: Head exam is unremarkable. LUNGS: Breath sounds decreased. HEART: Irregular rate and rhythm. ABDOMEN: Soft, no distention. EXTREMITITES: 2+ edema. Scrotal edema noted. Objective - Vital Signs Vital signs: Vital Signs Temp 97.5 F L 01/08/21 08:00 Pulse 114 H 01/08/21 09:00 Resp 24 01/08/21 09:00 BP 82/72 01/07/21 22:00 Pulse Ox 97 01/08/21 09:00 Intake & Output 01/07/21 01/08/21 01/08/21 18:59 06:59 18:59 Intake Total 1490.698 990.161 232.38 Output Total 2175 1170 475 Balance -684.302 -179.839 -242.62 Weight 108 kg Intake: IV 130 110 30 .9 @ 10mL/hr 130 110 30 Intake, IV Titration 1120.698 680.161 72.38 Amount Amiodarone 360 mg In 200 Dextrose 5% in Water 200 ml @ 1 MG/MIN 33.333 mls/ hr IV .Q6H BRENDA Rx#: [id number] Amiodarone 450 mg In 232.227 Dextrose 5% in Water 250 ml @ 0.5 MG/MIN 16.667 mls/hr IV .Q15H BRENDA Rx#: [id number] Furosemide 100 mg In 184.167 100 Sodium Chloride 0.9% 90 ml @ 10 MG/HR 10 mls/hr IV .Q10H BRENDA Rx#: [id number] Heparin Sod,Pork in 0.45% 73.71 NaCl 25,000 unit In 0.45 % NaCl 1 250ml.bag @ 10. 04 UNITS/KG/HR 10 mls/hr IV .Q24H BRENDA Rx#: [id number] Norepinephrine 32 mg In 74.407 174.224 Sodium Chloride 0.9% 218 ml @ 0.05 MCG/KG/MIN 2. 423 mls/hr IV .Q24H BRENDA Rx#:[id number] Norepinephrine 8 mg In 488.710 Sodium Chloride 0.9% 250 ml @ 0.05 MCG/KG/MIN 9. 549 mls/hr IV .Q24H BRENDA Rx#:[id number] propofoL 1,000 mg In 173.414 100 72.38 Empty Bag 1 bag @ Titrate IV .Q0M BRENDA Rx#: [id number] Tube Feeding 240 200 40 Other 90 Output: Urine 1575 1170 475 Hemodialysis 600 Other: Voiding Method Indwelling Catheter Indwelling Catheter ABP, PAP, CO, CI - Last Documented Arterial Blood Pressure 133/72 - Labs CBC & Chem 7: 01/08/21 04:45 01/08/21 04:45 Labs: Abnormal Lab Results - Last 24 Hours (Table) 01/07/21 01/07/21 01/07/21 Range/Units 12:00 12:02 18:39 WBC (3.8-10.6) k/uL RBC (4.30-5.90) m/uL Hgb (13.0-17.5) gm/dL Hct (39.0-53.0) % RDW (11.5-15.5) % Plt Count (150-450) k/uL Neutrophils # (1.3-7.7) k/uL PT (9.0-12.0) sec INR (<1.2) APTT 61.1 H (22.0-30.0) sec ABG O2 Saturation (94-97) % Sodium (137-145) mmol/L BUN (9-20) mg/dL Creatinine (0.66-1.25) mg/dL Glucose (74-99) mg/dL POC Glucose (mg/dL) 208 H 180 H (75-99) mg/dL Calcium (8.4-10.2) mg/dL Ionized Calcium Vincenzo (4.5-5.3) mg/dL Total Bilirubin (0.2-1.3) mg/dL ALT (4-49) U/L Alkaline Phosphatase (38-126) U/L Total Protein (6.3-8.2) g/dL Albumin (3.5-5.0) g/dL 01/07/21 01/08/21 01/08/21 Range/Units 23:49 04:45 04:45 WBC 20.3 H (3.8-10.6) k/uL RBC 3.61 L (4.30-5.90) m/uL Hgb 10.7 L (13.0-17.5) gm/dL Hct 34.2 L (39.0-53.0) % RDW 16.5 H (11.5-15.5) % Plt Count 93 L (150-450) k/uL Neutrophils # 18.3 H (1.3-7.7) k/uL PT 23.8 H (9.0-12.0) sec INR 2.5 H (<1.2) APTT 39.8 H (22.0-30.0) sec ABG O2 Saturation (94-97) % Sodium (137-145) mmol/L BUN (9-20) mg/dL Creatinine (0.66-1.25) mg/dL Glucose (74-99) mg/dL POC Glucose (mg/dL) 201 H (75-99) mg/dL Calcium (8.4-10.2) mg/dL Ionized Calcium Vincenzo (4.5-5.3) mg/dL Total Bilirubin (0.2-1.3) mg/dL ALT (4-49) U/L Alkaline Phosphatase (38-126) U/L Total Protein (6.3-8.2) g/dL Albumin (3.5-5.0) g/dL 01/08/21 01/08/21 Range/Units 04:45 05:17 WBC (3.8-10.6) k/uL RBC (4.30-5.90) m/uL Hgb (13.0-17.5) gm/dL Hct (39.0-53.0) % RDW (11.5-15.5) % Plt Count (150-450) k/uL Neutrophils # (1.3-7.7) k/uL PT (9.0-12.0) sec INR (<1.2) APTT (22.0-30.0) sec ABG O2 Saturation 98.3 H (94-97) % Sodium 131 L (137-145) mmol/L BUN 58 H (9-20) mg/dL Creatinine 2.05 H (0.66-1.25) mg/dL Glucose 189 H (74-99) mg/dL POC Glucose (mg/dL) (75-99) mg/dL Calcium 7.8 L (8.4-10.2) mg/dL Ionized Calcium Vincenzo 4.4 L (4.5-5.3) mg/dL Total Bilirubin 2.4 H (0.2-1.3) mg/dL ALT 132 H (4-49) U/L Alkaline Phosphatase 192 H (38-126) U/L Total Protein 4.5 L (6.3-8.2) g/dL Albumin 2.2 L (3.5-5.0) g/dL Microbiology - Last 24 Hours (Table) 01/05/21 06:50 Blood Culture - Preliminary Blood No Growth after 48 hours 01/05/21 17:35 Blood Culture - Preliminary Blood No Growth after 48 hours 01/04/21 21:08 Gram Stain - Final Sputum Sputum Culture - Final Cristina albicans 01/06/21 04:00 Gram Stain - Preliminary Sputum Sputum Culture - Preliminary Assessment and Plan Plan: Assessment: 1. Acute kidney injury secondary to ATN secondary to cardiorenal syndrome and hypotension. Creatinine stable at 2.05 today. 2. Volume overload. 3. A. fib with RVR maintained on amiodarone drip. 4. Pseudomonas UTI on antibiotics. 5. Acute hypoxic respiratory failure. 6. Hypervolemic hyponatremia. 7. Shock maintained on Levophed. Also on midodrine. Cortisol level not low. 8. Hypokalemia from diuresis. Plan: Maintain Lasix drip and metolazone. Continue to monitor renal function and urine output. Avoid nephrotoxins. Wean FiO2 and vasopressors. Potassium being replaced. Second treatment of ultrafiltration today as able to tolerate.
[2021-01-08] MEDS ORDERED: PHYTONADIONE 5 MG in SODIUM CHLORIDE 0.9% 50 ML IVPB STA (09:49)
[2021-01-08] MEDS: ALBUMIN HUMAN 25% 50 ML in EMPTY BAG 1 BAG IVPB SCH ×7 (10:47→21:20)
[2021-01-08 11:20] LABS: Hepatitis B Surface AB- Quant 5.7 mIU/mL; Hepatitis B Surface Antibody Nonreactive (Nonreactive); Hepatitis B Surface Antigen Nonreactive (Nonreactive)
[2021-01-08 11:44] LABS: Glucose,Whole Blood 164 mg/dL (75-99)
[2021-01-08] MEDS: ANIDULAFUNGIN 100 MG in SODIUM CHLORIDE 0.9% 100 ML IVPB SCH (12:11)
[2021-01-08] MEDS: FERROUS SULFATE 325 MG TAB PO SCH (12:18)
--- NOTE | 2021-01-08 12:59 | CONS ---
CONSULTATION This is a 80-year-old gentleman. I was consulted for urgent placement of dialysis catheter. Patient had a coronary artery bypass graft recently and he became very short of breath and had edema. He was admitted and has been intubated. Patient has a high BUN and creatinine. I am consulted for placement of dialysis catheter. PAST MEDICAL HISTORY: Atrial fibrillation, coronary artery disease, post CABG, diabetes mellitus, hypertension, sleep apnea. SURGICAL HISTORY: Patient had a stent and then patient triple coronary artery bypass graft. PHYSICAL EXAMINATION: Patient was seen in his room. Patient has been intubated. Patient has massive swelling of both groins and lower extremities. Patient has a history of atrial fibrillation. Abdomen is soft, non-tender. Femorals are not palpable because of massive swelling. PLAN: Placement of dialysis catheter, right jugular approach. Risks and complications were discussed. MARVINL / SHWETHAN: [id number] /
--- NOTE | 2021-01-08 13:56 | P.PN ---
Subjective Progress Note Date: 01/08/21 Principal diagnosis: Acute hypoxic respiratory failure, secondary to acute systolic congestive heart failure and bilateral pleural effusions. 01/04/2021, the patient is struggling. Despite the fact that he is on room air oxygen, he seems to be uncomfortable and he keeps on 1 set up on a recliner. His oral intake is minimal. He has no stamina. He seems to be very much disco uraged and he feels at times that he wants to quit the treatment. In terms of his pulmonary status, he is on room air oxygen, I reviewed the chest x-ray from today and there is a moderate-sized left-sided pleural effusion. Right-sided pleural effusion has essentially recovered. Note that the patient has undergone bilateral thoracentesis. He continues to have signs of fluid overload with fluid in his upper and lower extremities with some fluid weeping from his skin in lower extremities. He is receiving Lasix 40 mg IV on a daily basis. Overall fluid balance over the past 24 hours has been in the order of negative to 80 mL. He continues to have episodes of atrial fibrillation with rapid ventricular response. Along with A. fib RVR, he became hypotensive and his urine output dropped. He was given IV albumin. He was given a bolus of 500 mL yesterday. He was started on amiodarone drip loading, initially on 1 mg per minute and later on 0.5 mg per minute. His current heart rate is around 110. His most recent blood pressure is 99/61. His serum albumin is at 2.9. INR is at 2.0. Creatinine is at 1.5 with a BUN of 59, sodium is at 132, serum bicarbonate 20. Oral intake is quite diminished at this point in time. His echocardiogram was showing a preserved LV function. Urology evaluated the patient. The recommendation was to keep in the Barrow catheter. He is completing a 5 day course of IV cefepime regarding pseudomonas aeruginosa in the urine with possible infection. He is afebrile for now. Surgical wound site is dry clean and intact. His last bowel movement was 2 days ago. Patient was reevaluated today on 01/05/21, patient deteriorated last night, and he was intubated and placed on mechanical ventilation. He is presently on FiO2 of 60% tidal volume of 400 assist control rate of 22 and PEEP of 10. ABG showed a pO2 of 74 pCO2 of 39 pH of 7.39. Patient is sedated, he is on propofol at 30 mcg/kg/m, hypotensive requiring norepinephrine at 0.25 mcg/kg/m, is also on amiodarone drip at 1 mg/m, and IV fluid at KVO. Patient is not making much urine, does not seem to be making any urine output with Lasix IV push, hence I recommended starting the patient on Lasix at 10 mg per hour drip. Chest x-ray is consistent with congestive heart failure, patient is extremely edematous, he has abdominal distention, abdominal wall edema, and significant bipedal edema. Patient will be pancultured, he had a lactic acid of 3.0 earlier today. Cortisol level is 55. He believes he got is 17.3 hemoglobin is 12. Electrolytes are relatively normal except for bicarb of 20 BUN is 61 creatinine 1.73. Liver enzymes are a bit elevated but they seem to be improving over the last few days. Patient again is now on Lasix drip at 10 mg per hour, he is on Zosyn empirically. She is also on GI prophylaxis, and on bronchodilators. He was on Coumadin with INR of 1.8 today, and I would likely recommend heparin, patient will eventually need a PICC line placed tomorrow, today I went ahead and placed on arterial line because of his profound hypotension requiring relatively high dose of norepinephrine. Reevaluated today on 01/06/21, patient remains in the ICU, remains intubated and mechanically ventilated. He is on assist control rate of 20 to tell volume is 400 FiO2 50% and PEEP of 10. ABG today showed a pO2 of 105 pCO2 of 32 pH of 7.32. Chest x-ray continues to show evidence of pulmonary edema. Patient remains on Lasix drip at 10 mg per hour, amiodarone at 1 mg/m, propofol at 20 heparin drip, is also on norepinephrine at 0.3 mcg/kg/m. Patient continues to h ave leukocytosis, cultures so far nondiagnostic although he did have a UTI. Blood cultures are negative so far. Infectious disease consultation was initiated, patient is presently on Zosyn. Echocardiogram showed no evidence of temporal not, but it did show evidence of ejection fraction of 45%. Patient remains in atrial fibrillation, however rate seems to be fairly well controlled. Nutrition-hernandez the patient will be started on enteral feeding today via orogastric tube. WBC count today is up to 29.6 hemoglobin is 10.8 electrolytes are normal renal profile showed slight worsening with a BUN of 59 and creatinine 1.99, however the patient seems to be improving with diuresis, and renal output seems to be better. Lactic acid is 2.2 today. Liver enzymes are borderline elevated. Reevaluated today on 01/07/21, remains in the ICU, intubated and mechanically ventilated. He is on assist control rate of 22, tidal volume 400 FiO2 70%, patient was on 50% however he desaturated overnight, I went ahead today and increased the PEEP to 12, and I cut down the FiO2 to 55% from 70%. ABG this mor linnea on 50% showed a pO2 of 55 pCO2 33 pH of 7.42. Patient remains on norepinephrine at 0.4 mcg/kg/m, amiodarone at 1 mg/m, and I will cut down to 0.5. He is on propofol at 20 heparin drip, Lasix at 10 mg per hour, and IV fluid at KVO. Urine output is excellent, however patient remains in positive fluid balance, and nephrology is planning ultrafiltration on the patient sometime today. Patient remains in atrial fibrillation with a relatively controlled rate. Remains on enteral feeding. Remains on antibiotics. Blood cultures and sputum cultures are nondiagnostic. His urine was positive for pseudomonas aeruginosa on admission. Patient is sedated, but not paralysis. Reevaluated today on 01/08/21, patient remains in the ICU, intubated and mechanically ventilated. He is on assist control rate of 20 to tell volume 400 FiO2 50% and PEEP of 12. ABG today showed a pO2 of 95 pCO2 of 37 pH of 7.42, FiO2 was decreased to 45%. Patient remains on amiodarone at 0.5 mg/m, norepinephrine at 0.27 mcg/kg/m propofol at 15 mcg/kg/m Lasix at 10 mg per hour. Patient remains on enteral feeding. Yesterday, patient was seen by nephrology, and ultrafiltration was attempted, patient had poor tolerance to the ultrafiltration, however 600 MLS where removed. Patient also had bleeding at the dialysis catheter site in the right neck, and heparin remains on hold at present, and he is on Coumadin with normal INR, but we'll go ahead and give him 1 dose of vitamin K and that is still oozing around the catheter site in the right IJ area. Blood cultures remain negative sputum cultures are negative urine culture is positive for pseudomonas aeruginosa. Patient was seen by infectious disease and he is now on Zosyn and eraxis. WBC count today is 20.3 hemoglobin is 10.7. INR is 2.5, renal profile showed a BUN of 58 creatinine 2.05. Patient continues to have good urine output almost over 120 mL per hour. Hence we'll continue with the Lasix drip for now. Chest x-ray is showing slight improvement in his pulmonary edema. Objective - Vital Signs Vital signs: Vital Signs Temp 97.4 F L 01/08/21 12:00 Pulse 97 01/08/21 13:00 Resp 23 01/08/21 13:00 BP 82/72 01/07/21 22:00 Pulse Ox 97 01/08/21 13:00 Intake & Output 01/07/21 01/08/21 01/08/21 18:59 06:59 18:59 Intake Total 1490.698 990.161 454.607 Output Total 2175 1170 1030 Balance -684.302 -179.839 -575.393 Weight 108 kg Intake: IV 130 110 70 .9 @ 10mL/hr 130 110 70 Intake, IV Titration 1120.698 680.161 144.607 Amount Amiodarone 360 mg In 200 Dextrose 5% in Water 200 ml @ 1 MG/MIN 33.333 mls/ hr IV .Q6H BRENDA Rx#: [id number] Amiodarone 450 mg In 232.227 Dextrose 5% in Water 250 ml @ 0.5 MG/MIN 16.667 mls/hr IV .Q15H [facility]ENDA Rx#: [id number] Furosemide 100 mg In 184.167 100 Sodium Chloride 0.9% 90 ml @ 10 MG/HR 10 mls/hr IV .Q10H BRENDA Rx#: [id number] Heparin Sod,Pork in 0.45% 73.71 NaCl 25,000 unit In 0.45 % NaCl 1 250ml.bag @ 10. 04 UNITS/KG/HR 10 mls/hr IV .Q24H BRENDA Rx#: [id number] Norepinephrine 32 mg In 74.407 174.224 53.435 Sodium Chloride 0.9% 218 ml @ 0.05 MCG/KG/MIN 2. 423 mls/hr IV .Q24H BRENDA Rx#:[id number] Norepinephrine 8 mg In 488.710 Sodium Chloride 0.9% 250 ml @ 0.05 MCG/KG/MIN 9. 549 mls/hr IV .Q24H BRENDA Rx#:[id number] propofoL 1,000 mg In 173.414 100 91.172 Empty Bag 1 bag @ Titrate IV .Q0M BRENDA Rx#: [id number] Tube Feeding 240 200 120 Other 120 Output: Urine 1575 1170 1030 Hemodialysis 600 Other: Voiding Method Indwelling Catheter Indwelling Catheter Indwelling Catheter ABP, PAP, CO, CI - Last Documented Arterial Blood Pressure 133/67 - Exam Physical Exam: Revealed 80-year-old white male remains sedated, on propofol, intubated and mechanically ventilated. Head: Atraumatic normocephalic. HEENT:[Neck is supple.] [No neck masses.] [No thyromegaly.] [No JVD.] Endotracheal tube and orogastric tube are intact. oozing no blood noted around the right IJ catheter which was placed yesterday. Chest: [Symmetrical chest expansion crackles at the bases bilaterally Cardiac Exam: Irregular irregular rhythm, 2/6 systolic murmur thought the precordium. Abdomen: distended, significant abdominal wall edema is noted, diminished bowel sounds.] Extremities: 3+ bipedal edema, no clubbing, no cyanosis. Scrotal edema is also noted. Neurological Exam: [Cannot be assessed, patient is sedated on propofol. Psychiatric: Could not be assessed. Skin: No rashes except the patient has areas of ecchymosis, and abrasions especially in the left forearm area. - Labs CBC & Chem 7: 01/08/21 04:45 01/08/21 04:45 Labs: Abnormal Lab Results - Last 24 Hours (Table) 01/07/21 01/07/21 01/07/21 Range/Units 18:39 22:44 23:49 WBC (3.8-10.6) k/uL RBC (4.30-5.90) m/uL Hgb (13.0-17.5) gm/dL Hct (39.0-53.0) % RDW (11.5-15.5) % Plt Count (150-450) k/uL Neutrophils # (1.3-7.7) k/uL PT (9.0-12.0) sec INR (<1.2) APTT (22.0-30.0) sec ABG O2 Saturation (94-97) % Sodium (137-145) mmol/L BUN (9-20) mg/dL Creatinine (0.66-1.25) mg/dL Glucose (74-99) mg/dL POC Glucose (mg/dL) 180 H 201 H (75-99) mg/dL Calcium (8.4-10.2) mg/dL Ionized Calcium Vincenzo (4.5-5.3) mg/dL Total Bilirubin (0.2-1.3) mg/dL ALT (4-49) U/L Alkaline Phosphatase (38-126) U/L Total Protein (6.3-8.2) g/dL Albumin (3.5-5.0) g/dL Prealbumin 3.3 L (18.0-42.0) mg/dL 01/08/21 01/08/21 01/08/21 Range/Units 04:45 04:45 04:45 WBC 20.3 H (3.8-10.6) k/uL RBC 3.61 L (4.30-5.90) m/uL Hgb 10.7 L (13.0-17.5) gm/dL Hct 34.2 L (39.0-53.0) % RDW 16.5 H (11.5-15.5) % Plt Count 93 L (150-450) k/uL Neutrophils # 18.3 H (1.3-7.7) k/uL PT 23.8 H (9.0-12.0) sec INR 2.5 H (<1.2) APTT 39.8 H (22.0-30.0) sec ABG O2 Saturation (94-97) % Sodium 131 L (137-145) mmol/L BUN 58 H (9-20) mg/dL Creatinine 2.05 H (0.66-1.25) mg/dL Glucose 189 H (74-99) mg/dL POC Glucose (mg/dL) (75-99) mg/dL Calcium 7.8 L (8.4-10.2) mg/dL Ionized Calcium Vincenzo 4.4 L (4.5-5.3) mg/dL Total Bilirubin 2.4 H (0.2-1.3) mg/dL ALT 132 H (4-49) U/L Alkaline Phosphatase 192 H (38-126) U/L Total Protein 4.5 L (6.3-8.2) g/dL Albumin 2.2 L (3.5-5.0) g/dL Prealbumin (18.0-42.0) mg/dL 01/08/21 01/08/21 Range/Units 05:17 11:42 WBC (3.8-10.6) k/uL RBC (4.30-5.90) m/uL Hgb (13.0-17.5) gm/dL Hct (39.0-53.0) % RDW (11.5-15.5) % Plt Count (150-450) k/uL Neutrophils # (1.3-7.7) k/uL PT (9.0-12.0) sec INR (<1.2) APTT (22.0-30.0) sec ABG O2 Saturation 98.3 H (94-97) % Sodium (137-145) mmol/L BUN (9-20) mg/dL Creatinine (0.66-1.25) mg/dL Glucose (74-99) mg/dL POC Glucose (mg/dL) 164 H (75-99) mg/dL Calcium (8.4-10.2) mg/dL Ionized Calcium Vincenzo (4.5-5.3) mg/dL Total Bilirubin (0.2-1.3) mg/dL ALT (4-49) U/L Alkaline Phosphatase (38-126) U/L Total Protein (6.3-8.2) g/dL Albumin (3.5-5.0) g/dL Prealbumin (18.0-42.0) mg/dL Microbiology - Last 24 Hours (Table) 01/06/21 04:00 Gram Stain - Final Sputum Sputum Culture - Final Cristina albicans 01/05/21 06:50 Blood Culture - Preliminary Blood No Growth after 48 hours 01/05/21 17:35 Blood Culture - Preliminary Blood No Growth after 48 hours 01/04/21 21:08 Gram Stain - Final Sputum Sputum Culture - Final Cristina albicans Assessment and Plan Assessment: Impression: Acute hypoxic respiratory failure secondary to acute on chronic systolic congestive heart failure with bilateral pleural effusions Coronary artery disease and recent 4 vessel bypass grafting discharged from the hospital on 12/25, echocardiogram showed mildly impaired left ventricle with ejection fraction of 45% Chronic atrial fibrillation. Acute kidney injury possible cardiorenal syndrome. Acute Nonoliguric renal failure. Type 2 diabetes. Dyslipidemia. Hypotension requiring pressors, remains on norepinephrine, the only positive culture is a urine culture showing Pseudomonas, other cultures are negative. Elevated liver enzymes, could be hypoperfusional in nature. Acute urinary tract infection secondary to pseudomonas aeruginosa. Extensive edema, patient is on Lasix drip and he is receiving ultrafiltration daily hopefully he will tolerate ultrafiltration today. Profound weakness and debility Iatrogenic bleeding around IJ catheter, hence we'll continue to hold heparin and will give vitamin K for elevated INR Recommendation: Continue ventilatory support. Continue PEEP at 12. Continue ultrafiltration. Continue pressors.titrate norepinephrine accordingly. Maintain a mean arterial pressure of above 65. Continue amiodarone. Continue Lasix at 10 mg per hour. Discontinue heparin, reverse INR if possible with vitamin K. Since the patient is having more oozing and bleeding around the right IJ catheter. Continue Zosyn.Accident disease was consulted Nutritional support. And enteral feeding. GI prophylaxis. We will continue to follow. Condition remains very critical. Critical care time is over 30 minutes not including time spent on procedures. Time with Patient: Greater than 30
--- NOTE | 2021-01-08 14:53 | P.PN ---
Subjective Progress Note Date: 01/08/21 HISTORY OF PRESENT ILLNESS This is a 80-year-old male patient of Dr. Campos and Dr. Mullins with past medical history of chronic persistent atrial fibrillation, diabetes mellitus type 2, hypertension, hyperlipidemia, history of pituitary tumor resection, obstructive sleep apnea on BiPAP, gastroesophageal reflux disease, benign prostatic hypertrophy. He should also has history of coronary artery disease status post PCI to the LAD in 2005, heart catheterization in October 2020 found severe triple-vessel disease, subsequently admitted to the hospital for elective coronary artery bypass grafting 12/16 for four-vessel bypass MORAN to LAD, left radial artery from the aorta to the first obtuse marginal artery, reverse saphenous vein graft from the aorta to the second diagonal artery, reverse saphenous vein graft from the aorta to the posterior descending artery, endoscopic harvesting of the left radial artery, endoscopic harvesting of the left greater saphenous vein from ankle to the groin, exclusion of the left atrial appendage. During his last admission, he remained in ICU,Until December 24,, and after he was transferred to [facility] for cardiac recovery program. He has chronic atrial fibrillation, diabetes mellitus type 2, hypertension, hyperlipidemia, history of pituitary gland resection, obstructive sleep apnea, BPH with urinary retention, and delirium.. At the time of discharge, he was on Coumadin and Singulair Cardizem CD lisinopril Tylenol, he was taken off atenolol Vytorin lisinopril Imdur aspirin and nitro. -He comes back to the emergency room 2 days later, from [facility], secondary to shortness of breath, and edema. She also has worsening of her liver issues, with no visible jaundice. On ER presentation, he has indwelling Barrow catheter, there is no fever, no focal deficit, chest pain, he has shortness of breath, no vomiting, no diarrhea, no melena. In the emergency room, EKG shows atrial fibrillation heart rate of 79, no significant change compared to 927 EKG, double basic count is 15, hemoglobin of 9, sodium of 131, BUN 62 creatinine 4.7, CO2 of 19 total bili of 7.3, AST 949 ALT 881, alkaline phosphatase 411, troponin is stagnant at 0.14, and 0.148. Lactic acid level was 2.1, INR is 3.3 ultrasound of the gallbladder, shows common bile duct is normal, liver is enlarged, otherwise no other pathologies noted. Chest x-ray shows bilateral pleural effusion, basilar pulmonary infiltrates, which slightly is worse compared to previous, mild heart failure is possible, cardiomegaly some change patient is admitted to ICU with consultation to critical care medicine Dr. Vásquez, and cardiology. Chest ultrasound is ordered CMV and hepatitis panels ordered, patient would need a CAT scan of the abdomen, to eval for spleen gallbladder, Tylenol is discontinued, Lipitor is discontinued check for haptoglobin, reticulocyte count, and iron studies to evaluate portal system. 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 INR is 3. Sodium 132, potassium 4.1, chloride 100, CO2 18, BUN 65 and creatinine 1.81, blood sugar 119. Total bilirubin 6.5, AST 493, ALT 663, alkaline phosphatase 360. INR is 3.0. Magnesium 2.6. Lipase 473. CMV nonreactive 2 draws. Hepatitis panel negative. Repeat chest x-ray reveals patchy perihilar and basilar infiltrates/atelectasis as well as pleural effusions persist without significant interval change. Dr. Cartagena has ordered for vitamin K 2.5 mg and repeat INR with plan for thoracentesis once INR is und er 2. Patient is also followed by cardiology and Lasix decreased to 40 mg IV daily. Echocardiogram reveals EF of 45-60% with moderate concentric left hypertrophy, LA is severely dilated, mild to moderate mitral regurgitation, mild tricuspid regurgitation. Patient denies having any shortness of breath at rest. He denies abdominal pain, no nausea. He has had good urine output around 35 mL per hour. 12/30: Patient underwent right sided thoracentesis this morning with Dr. Cartagena with removal of approximately 650 ML's of turbid fluid. Repeat chest x- ray following procedure showed no complications. Patient was on BiPAP during the night and currently on O2 by nasal cannula at 3 L with pulse ox of 97%. Blood pressure 101/64, heart rate 81, afebrile. Patient has been seen and followed by nephrology for acute kidney injury secondary to hypotension and hypoperfusion. Plan is to continue diuresis in the patient, hold MAURA inhibitor, check cortisol level, monitor I&O's. Midodrine was increased yesterday. Repeat blood work today reveals WBC 12.2, hemoglobin 9.9 and platelet count 312. INR this morning was 1.9. Sodium 128, potassium 4.7, chloride 95, CO2 21, BUN 71 and creatinine 2.11. Blood sugars running between 109 and 134. Repeat liver function tests reveal total bilirubin 6, AST 28, ALT 535, alkaline phosphatase 295. Magnesium 2.8. Cortisol level came back at 27. Patient will be transferred to the cardiac stepdown unit. 12/31: Patient remains in the intensive care unit, today resting in bed on BiPAP. Patient became hypotensive overnight and required levo fed and was transferred back to the intensive care unit. Levo fed is currently off. Repeat blood work reveals WBC 16.5, hemoglobin 10.4, platelet count 282. Sodium 125, potassium 5.8, BUN 77 and creatinine 2.75. AST 1302, ALT 987, alkaline phosphatase 236. INR 2.9. Patient is followed by multiple consultants including cardiology, pulmonary medicine, nephrology and cardiothoracic surgery. Patient has been reaching 1000 on incentive spirometry. CAT scan of the abdomen and pelvis reveals nonobstructive left nephrolithiasis. Left pleural effusion difficult to exclude basilar pneumonia or atelectasis. There may be a posterior dependent he will. Cardiac. Coronary artery disease. Repeat chest x-ray reveals stable bibasilar infiltrate and small left pleural effusion. Renal ultrasound reveals limited assessment of left kidney demonstrate no definite hydronephrosis or hydroureter lysis. No hydronephrosis on the right kidney 01/01: Patient remains in the intensive care unit, resting in chair on nasal oxygen and appears to be comfortable. Pulse ox is 99%, blood pressure 80/65 and he is on levo fed. Lopressor was decreased by nephrology. Heart rate is 106, afebrile. Repeat blood work reveals WBC 10.1, hemoglobin 10.3, platelet count 291. INR 2.7. Sodium 130, potassium 4.0, chloride 94, CO2 25, BUN 76 and creatinine 2.38. Calcium 7.7. Magnesium 2.8. AST 824, ALT 920, alkaline p hosphatase 210. Patient received calcium gluconate 1 g this morning. Chest x-ray reveals pleural parenchymal density left lower lobe persistent appears to be somewhat improved. 01/02: Patient remains in intensive care unit. He appears to be less jaundiced today. Urine is blood tinged. He states he is uncomfortable all over his body but no specific pain. He states he is skinny interrupted sleep throughout the night and melatonin increased. He continues not have appetite and Remeron added. Discussed with cardiothoracic surgery transitioning patient to eliquis although patient had episodes of nausea with this and to discuss other options, and also regard the posterior hemopericardium. Patient has been afebrile, heart rate 105, blood pressure 103/70, pulse ox 99% 2 L nasal cannula. Repeat blood work reveals WBC 10.8, hemoglobin 10.6, platelet count 251. Sodium 131, potassium 3.7, chloride 100, CO2 22, BUN 16 creatinine 1.41. Blood sugars are running between 105 and 144. Lactic acid 2.1. Calcium 7.8. Liver function tests are improving with total bilirubin 3.5, AST 449, ALT 684, alkaline phosphatase 194. LDH 1192. Lipase 302. 01/03: Patient evaluated this morning, remains in intensive care unit, patient is awake and alert, is currently on room air. Repeat chest x-ray shows pleural parenchymal lung base that is unchanged. Repeat blood work reveals hemoglobin 10.6, platelet count of 220, INR 3.1, sodium 132, BUN 58, creatinine 1.48, AST 319, ALT 578, Alk Phos 190. Liver function tests are improving. Urine culture showed Pseudomonas aeruginosa, he is on cefepime. Telemetry showing atrial fibrillation, he was started on xarelto yesterday for anticoagulation, and was held today for increase in INR. He was given calcium gluconate and albumin today and also a dose of Lasix Vital signs are heart rate 103, respiratory rate 13, blood pressure 92/72, 94% on room air. 01/04: Patient evaluated this morning, remains in the ICU, sitting up resting in the bedside recliner, patient is awake and alert. Labs show hemoglobin 10.5, platelets 221, INR 2, potassium 4.1, BUN 59, creatinine 1.57, total bilirubin 2.8, AST 188, ALT 457, alk phos 222, albumin 2.9. Telemetry still showing atrial fibrillation with an elevated rate, cardiology is following and is on amiodarone 400 mg twice a day. Patient continues to have problems with blood pressure and postural hypotension. Flomax was discontinued, urology consult appreciated. Recommends to continue with the Barrow catheter until he is more stabilized and ambulating, then we'll plan to remove the catheter and do a voiding trial. Pulmonary reviewed repeat chest x-ray from today and shows a moderate sized left sided pleural effusion, right-sided pleural effusion has recovered. Pulmonary considering possibly doing another thoracentesis on the left side. Patient does not require any pressors at this point. Patient still has extensive edema in the upper and lower extremities with signs of fluid overload, Lasix 40 mg IV ordered. He continues on cefepime for Pseudomonas aeruginosa in the urine. Oral intake continues to be poor, recently started on Remeron. 01/05: Patient was intubated last evening and was started on propofol, norepinephrine and was on amiodarone. Patient is currently on mechanical ventilation with tidal volume 400, FiO2 60, PEEP of 10. He is undergoing echocardiogram at this time which reported EF of 50-55% with moderate concentric left ventricular hypertrophy, no pericardial effusion.. He continues to have significant anasarca and edema. Heart rate is running in the low 100s with atrial fibrillation. Repeat blood work reveals WBC 17.3, hemoglobin 12, platelet count 185. INR is 1.8. Sodium 131, potassium 3.9, chloride 99, CO2 20, BUN 61 and creatinine 1.73. Blood sugars are running between 141 and 203. Total bilirubin 2.7, AST 89, ALT 300, alkaline phosphatase 201. Cortisol level LV. Chest x-ray reveals worsening left lower lobe infiltrate. Small to modera te pleural effusion may be worsening. Increased perihilar infiltrates more notably on the right. CT of the abdomen and pelvis with contrast revealed bilateral lower lobe pulmonary consolidation and pleural fluid. Cardiomegaly. Congestive heart failure is possible. Some loculated ascites fluid noted in the abdomen. No free air. No sign of mechanical bowel obstruction. Subcutaneous edema around the abdomen. 01/06 patient evaluated on 01/06 remains in the ICU intubated. continues to remain on assist control on FiO2 50% BP is improved from 10 to a respiratory rate of 22. Chest x-ray suggestive of pulmonary edema patient remains on Lasix drip at 10 mics per hour. Metolazone initiated at 5 mg daily. Patient continues to remain in atrial fibrillation continue amiodarone at 1 monique per minute. On sedation maintained with propofol. Patient continued to remain on norepinephrine definite 0.3 monique per KG per minute. Labs were reviewed patient's WBC worsened to 29.3 hemoglobin 10.6 increase in neutrophils. ABG obtained this from pH 7.42 pCO2 32, pO2 105 sodium 131 bicarb 18 BUN 15 and creatinine 1.9 lactic acid was 2.2 calcium 7.8 phosphorus 4.7 liver enzymes continued to do wntrend with AST 60 ALT [address] abdomen reviewed suggestive of severe anasarca change with third spacing severe lower lobe and inferior lingular consolidation suggestive of aspiration pneumonitis extensive edema that is changes involving the deeper plane of visualized upper thighs arm. Second concern showed bladder wall thickening representing chronic bladder wall hypertrophy and cystitis.. 5.9 cm noted. Infectious disease consulted the Zosyn added. No sign of bowel ischemia noted. Abdominal ultrasound suggestive of mild abdominal ascites with moderate right pleural effusion no obvious hydronephrosis, gallstones or biliary duct dilation noted infection noted. En teral feeding to be initiated today 01/07 patient remains intubated, on assist control FiO2 reduced to 55%, PEEP of 12. Continues to remain on IV Solu-Medrol, Lasix drip, heparin drip, propofol and IV Levophed. Vitals reviewed patient is afebrile pulse 80. Respiratory rate 21 blood pressure 105/62. On 91% saturation on 55% FiO2. Urine output adequate at 40-60 mg per hour. Patient continued to gain weight and has gained 13 kg since admission. WBC is assist 28.5 hemoglobin 10.8 INR is high at 3.1 sodium 131 potassium 2.8 BUN 16 creatinine 2.2 to glucose 167 calcium 7.8 AST ALT continue to improve. Pro-calcitonin 5.12. Continues to remain on Zosyn per infectious disease recommendation. 01/08: She remains in the intensive care unit, intubated and on mechanical ventilation with tidal volume 400, FiO2 45, PEEP of 12. He is currently on Lasix drip, albumin, norepinephrine, calcium gluconate, propofol. Patient's is at bedside and states that he has not had a bowel movement since he started having abdominal pain. Patient is now on dialysis due to generalized anasarca. Barrow catheter is draining urine with good amount of 100 225 mL per hour. Lasix drip is at 10 ML's an hour. Patient is also on amiodarone drip currently in atrial fibrillation. REVIEW OF SYSTEMS unable to obtain due to intubation PHYSICAL EXAMINATION Gen: This is a 80-year-old male. Patient is resting in ICU bed, intubated and on mechanical ventilation. He appears to be comfortable. HEENT: Head is atraumatic, normocephalic. Pupils equal, round. Sclerae is anicteric. Oral ET tube. NECK: Supple. No JVD. No lymphadenopathy. No thyromegaly. LUNGS: Diminished to the bilateral basis. No intercostal retractions. HEART: Irregular rate and rhythm. No murmur. ABDOMEN: Soft. Bowel sounds are sluggish. No masses. No tenderness. Barrow catheter. EXTREMITIES: 3+ bilateral pedal edema mildly improved. Scrotal edema with pitting edema involving the subcutaneous plane of the abdomen and back. NEUROLOGICAL: Patient is intubated ASSESSMENT AND PLAN 1. Acute hypoxic respiratory failure secondary to fluid overload and pleural effusions and possible aspiration pneumonia. Intubation on 01/04. Patient is status post right-sided thoracentesis on 12/30 of 650 mL, continue Lasix drip w ith metolazone 5 mg by mouth daily monitor I&O and daily weights, monitor renal function and electrolytes. Zosyn initiated on 01/06. Infectious disease was consulted 2. Severe coagulopathy, on Coumadin, with worsening of transaminitis, with jaundice, suspect hepatobiliary obstruction, ischemic liver cirrhosis. Lipitor and Tylenol was discontinued and held. Coumadin is on hold. Patient placed on heparin drip per cardiology. 3. Acute kidney injury and chronic kidney disease stage II secondary to hypoperfusion, obstructive uropathy with balloon not in the bladder. Consult with nephrology appreciated. Avoid nephrotoxic agents. Barrow cath apparently was not in the bladder and has been replaced. Continuous function continues to worsen patient continues to remain on diuretics and started on dialysis. 4. Acute sepsis with septic shock and cardiogenic shock. Continue Zosyn and Eraxis . Infectious disease consult appreciated. 5. Coronary artery disease status post 4 vessel CABG 12/16. Continue current management per cardio thoracic surgery. Continue aspirin 81 mg daily, Lipitor on hold, Lopressor 12.5 mg twice daily 6. Chronic persistent atrial fibrillation. Heparin drip, amiodarone drip, Lopressor 12.5 mg twice daily. 7. Acute transaminitis likely secondary to congestive heart failure trending down. Started held 8. Hypovolemic hyponatremia. Continue to monitor sodium. 9. Diabetes mellitus type 2. Continue with NovoLog scale before meals and at bedtime, blood sugar is controlled. 10. Hypertension. Patient is currently hypotensive on norepinephrine. Continue Lopressor. 11. Hyperlipidemia. Hold Lipitor. 12. Urinary retention. Maintain Barrow catheter. 13. History of pituitary gland resection. 14. Obstructive sleep apnea on BiPAP. 15. Gastroesophageal reflux disease. 16. Possible posterior katie-pericardium, ruled out. 17. DVT prophylaxis. HA hose. 18. Postural hypotension. Flomax held. 19. GI prophylaxis. Protonix. 20 anasarca with pleural effusions scrotal edema on Lasix drip 10 mg per hour with metolazone at 5 mg by mouth daily, dialysis 21 mild protein calorie malnutrition. Low albumin Enteral feeding initiated CODE STATUS: Full code Prognosis poor. DISCHARGE PLAN Most likely return to [facility] for subacute rehab. Impression and plan of care have been directed as dictated by the signing physician. Erica Alfredo nurse practitioner acting as scribe for signing physician. Objective - Vital Signs Vital signs: Vital Signs Temp 97.5 F L 01/08/21 08:00 Pulse 94 01/08/21 11:40 Resp 22 01/08/21 11:00 BP 82/72 01/07/21 22:00 Pulse Ox 98 01/08/21 11:00 Intake & Output 01/07/21 01/08/21 01/08/21 18:59 06:59 18:59 Intake Total 1490.698 990.161 364.607 Output Total 2175 1170 705 Balance -684.302 -179.839 -340.393 Weight 108 kg Intake: IV 130 110 50 .9 @ 10mL/hr 130 110 50 Intake, IV Titration 1120.698 680.161 144.607 Amount Amiodarone 360 mg In 200 Dextrose 5% in Water 200 ml @ 1 MG/MIN 33.333 mls/ hr IV .Q6H BRENDA Rx#: [id number] Amiodarone 450 mg In 232.227 Dextrose 5% in Water 250 ml @ 0.5 MG/MIN 16.667 mls/hr IV .Q15H BRENDA Rx#: [id number] Furosemide 100 mg In 184.167 100 Sodium Chloride 0.9% 90 ml @ 10 MG/HR 10 mls/hr IV .Q10H BRENDA Rx#: [id number] Heparin Sod,Pork in 0.45% 73.71 NaCl 25,000 unit In 0.45 % NaCl 1 250ml.bag @ 10. 04 UNITS/KG/HR 10 mls/hr IV .Q24H BRENDA Rx#: [id number] Norepinephrine 32 mg In 74.407 174.224 53.435 Sodium Chloride 0.9% 218 ml @ 0.05 MCG/KG/MIN 2. 423 mls/hr IV .Q24H BRENDA Rx#:[id number] Norepinephrine 8 mg In 488.710 Sodium Chloride 0.9% 250 ml @ 0.05 MCG/KG/MIN 9. 549 mls/hr IV .Q24H BRENDA Rx#:[id number] propofoL 1,000 mg In 173.414 100 91.172 Empty Bag 1 bag @ Titrate IV .Q0M BRENDA Rx#: [id number] Tube Feeding 240 200 80 Other 90 Output: Urine 1575 1170 705 Hemodialysis 600 Other: Voiding Method Indwelling Catheter Indwelling Catheter Indwelling Catheter ABP, PAP, CO, CI - Last Documented Arterial Blood Pressure 105/61 - Labs CBC & Chem 7: 01/08/21 04:45 01/08/21 04:45 Labs: Abnormal Lab Results - Last 24 Hours (Table) 01/07/21 01/07/21 01/07/21 Range/Units 12:00 18:39 22:44 WBC (3.8-10.6) k/uL RBC (4.30-5.90) m/uL Hgb (13.0-17.5) gm/dL Hct (39.0-53.0) % RDW (11.5-15.5) % Plt Count (150-450) k/uL Neutrophils # (1.3-7.7) k/uL PT (9.0-12.0) sec INR (<1.2) APTT 61.1 H (22.0-30.0) sec ABG O2 Saturation (94-97) % Sodium (137-145) mmol/L BUN (9-20) mg/dL Creatinine (0.66-1.25) mg/dL Glucose (74-99) mg/dL POC Glucose (mg/dL) 180 H (75-99) mg/dL Calcium (8.4-10.2) mg/dL Ionized Calcium Vincenzo (4.5-5.3) mg/dL Total Bilirubin (0.2-1.3) mg/dL ALT (4-49) U/L Alkaline Phosphatase (38-126) U/L Total Protein (6.3-8.2) g/dL Albumin (3.5-5.0) g/dL Prealbumin 3.3 L (18.0-42.0) mg/dL 01/07/21 01/08/21 01/08/21 Range/Units 23:49 04:45 04:45 WBC 20.3 H (3.8-10.6) k/uL RBC 3.61 L (4.30-5.90) m/uL Hgb 10.7 L (13.0-17.5) gm/dL Hct 34.2 L (39.0-53.0) % RDW 16.5 H (11.5-15.5) % Plt Count 93 L (150-450) k/uL Neutrophils # 18.3 H (1.3-7.7) k/uL PT 23.8 H (9.0-12.0) sec INR 2.5 H (<1.2) APTT 39.8 H (22.0-30.0) sec ABG O2 Saturation (94-97) % Sodium (137-145) mmol/L BUN (9-20) mg/dL Creatinine (0.66-1.25) mg/dL Glucose (74-99) mg/dL POC Glucose (mg/dL) 201 H (75-99) mg/dL Calcium (8.4-10.2) mg/dL Ionized Calcium Vincenzo (4.5-5.3) mg/dL Total Bilirubin (0.2-1.3) mg/dL ALT (4-49) U/L Alkaline Phosphatase (38-126) U/L Total Protein (6.3-8.2) g/dL Albumin (3.5-5.0) g/dL Prealbumin (18.0-42.0) mg/dL 01/08/21 01/08/21 01/08/21 Range/Units 04:45 05:17 11:42 WBC (3.8-10.6) k/uL RBC (4.30-5.90) m/uL Hgb (13.0-17.5) gm/dL Hct (39.0-53.0) % RDW (11.5-15.5) % Plt Count (150-450) k/uL Neutrophils # (1.3-7.7) k/uL PT (9.0-12.0) sec INR (<1.2) APTT (22.0-30.0) sec ABG O2 Saturation 98.3 H (94-97) % Sodium 131 L (137-145) mmol/L BUN 58 H (9-20) mg/dL Creatinine 2.05 H (0.66-1.25) mg/dL Glucose 189 H (74-99) mg/dL POC Glucose (mg/dL) 164 H (75-99) mg/dL Calcium 7.8 L (8.4-10.2) mg/dL Ionized Calcium Vincenzo 4.4 L (4.5-5.3) mg/dL Total Bilirubin 2.4 H (0.2-1.3) mg/dL ALT 132 H (4-49) U/L Alkaline Phosphatase 192 H (38-126) U/L Total Protein 4.5 L (6.3-8.2) g/dL Albumin 2.2 L (3.5-5.0) g/dL Prealbumin (18.0-42.0) mg/dL Microbiology - Last 24 Hours (Table) 01/06/21 04:00 Gram Stain - Final Sputum Sputum Culture - Final Cristina albicans 01/05/21 06:50 Blood Culture - Preliminary Blood No Growth after 48 hours 01/05/21 17:35 Blood Culture - Preliminary Blood No Growth after 48 hours 01/04/21 21:08 Gram Stain - Final Sputum Sputum Culture - Final Cristina albicans
--- NOTE | 2021-01-08 15:20 | P.PN ---
Subjective Progress Note Date: 01/08/21 CHIEF COMPLAINT: Shortness of breath HISTORY OF PRESENT ILLNESS: Surgical service is following in regards to patient's abdominal distention. Patient remains in the ICU intubated and sedated. He is requiring Levophed. He remains on Lasix drip. Patient had temporary hemodialysis catheter placed yesterday and has been started on hemodialysis. Afebrile. FiO2 45% WBC down from 28.5-20.3 hemoglobin 10.7 platelets 93 albumin 2.2 Patient seen and examined with Dr. man PHYSICAL EXAM: VITAL SIGNS: Reviewed. GENERAL: Well-developed in no acute distress. HEENT: No sclera icterus. Extraocular movements grossly intact. Moist buccal mucosa. Head is atraumatic, normocephalic. ABDOMEN: Soft. Distended NEUROLOGIC: Alert and oriented. Cranial nerves II through XII grossly intact. ASSESSMENT: 1. Abdominal distention 2. Severe anasarca of the abdomen 3. Circumferential bladder wall thickening could represent bladder wall hypertrophy or cystitis with enlarged prostate. 4. Acute hypoxic respiratory failure due to fluid overload and bilateral pleural effusions PLAN: -No surgical intervention planned -Continue ICU management -Continue supportive care Physician Cream Hauler note has been reviewed by physician. Signing provider agrees with the documented findings, assessment, and plan of care. Objective - Vital Signs Vital signs: Vital Signs Temp 97.4 F L 01/08/21 12:00 Pulse 106 H 01/08/21 14:00 Resp 22 01/08/21 14:00 BP 82/72 01/07/21 22:00 Pulse Ox 98 01/08/21 14:00 Intake & Output 01/07/21 01/08/21 01/08/21 18:59 06:59 18:59 Intake Total 1490.698 990.161 484.607 Output Total 2175 1170 1305 Balance -684.302 -179.839 -820.393 Weight 108 kg Intake: IV 130 110 80 .9 @ 10mL/hr 130 110 80 Intake, IV Titration 1120.698 680.161 144.607 Amount Amiodarone 360 mg In 200 Dextrose 5% in Water 200 ml @ 1 MG/MIN 33.333 mls/ hr IV .Q6H [facility] Rx#: [id number] Amiodarone 450 mg In 232.227 Dextrose 5% in Water 250 ml @ 0.5 MG/MIN 16.667 mls/hr IV .Q15H [facility] Rx#: [id number] Furosemide 100 mg In 184.167 100 Sodium Chloride 0.9% 90 ml @ 10 MG/HR 10 mls/hr IV .Q10H [facility] Rx#: [id number] Heparin Sod,Pork in 0.45% 73.71 NaCl 25,000 unit In 0.45 % NaCl 1 250ml.bag @ 10. 04 UNITS/KG/HR 10 mls/hr IV .Q24H [facility] Rx#: [id number] Norepinephrine 32 mg In 74.407 174.224 53.435 Sodium Chloride 0.9% 218 ml @ 0.05 MCG/KG/MIN 2. 423 mls/hr IV .Q24H [facility] Rx#:[id number] Norepinephrine 8 mg In 488.710 Sodium Chloride 0.9% 250 ml @ 0.05 MCG/KG/MIN 9. 549 mls/hr IV .Q24H [facility] Rx#:[id number] propofoL 1,000 mg In 173.414 100 91.172 Empty Bag 1 bag @ Titrate IV .Q0M [facility] Rx#: [id number] Tube Feeding 240 200 140 Other 120 Output: Urine 1575 1170 1305 Hemodialysis 600 Other: Voiding Method Indwelling Catheter Indwelling Catheter Indwelling Catheter ABP, PAP, CO, CI - Last Documented Arterial Blood Pressure 128/65 - Labs CBC & Chem 7: 01/08/21 04:45 01/08/21 04:45 Labs: Abnormal Lab Results - Last 24 Hours (Table) 01/07/21 01/07/21 01/07/21 Range/Units 18:39 22:44 23:49 WBC (3.8-10.6) k/uL RBC (4.30-5.90) m/uL Hgb (13.0-17.5) gm/dL Hct (39.0-53.0) % RDW (11.5-15.5) % Plt Count (150-450) k/uL Neutrophils # (1.3-7.7) k/uL PT (9.0-12.0) sec INR (<1.2) APTT (22.0-30.0) sec ABG O2 Saturation (94-97) % Sodium (137-145) mmol/L BUN (9-20) mg/dL Creatinine (0.66-1.25) mg/dL Glucose (74-99) mg/dL POC Glucose (mg/dL) 180 H 201 H (75-99) mg/dL Calcium (8.4-10.2) mg/dL Ionized Calcium Vincenzo (4.5-5.3) mg/dL Total Bilirubin (0.2-1.3) mg/dL ALT (4-49) U/L Alkaline Phosphatase (38-126) U/L Total Protein (6.3-8.2) g/dL Albumin (3.5-5.0) g/dL Prealbumin 3.3 L (18.0-42.0) mg/dL 01/08/21 01/08/21 01/08/21 Range/Units 04:45 04:45 04:45 WBC 20.3 H (3.8-10.6) k/uL RBC 3.61 L (4.30-5.90) m/uL Hgb 10.7 L (13.0-17.5) gm/dL Hct 34.2 L (39.0-53.0) % RDW 16.5 H (11.5-15.5) % Plt Count 93 L (150-450) k/uL Neutrophils # 18.3 H (1.3-7.7) k/uL PT 23.8 H (9.0-12.0) sec INR 2.5 H (<1.2) APTT 39.8 H (22.0-30.0) sec ABG O2 Saturation (94-97) % Sodium 131 L (137-145) mmol/L BUN 58 H (9-20) mg/dL Creatinine 2.05 H (0.66-1.25) mg/dL Glucose 189 H (74-99) mg/dL POC Glucose (mg/dL) (75-99) mg/dL Calcium 7.8 L (8.4-10.2) mg/dL Ionized Calcium Vincenzo 4.4 L (4.5-5.3) mg/dL Total Bilirubin 2.4 H (0.2-1.3) mg/dL ALT 132 H (4-49) U/L Alkaline Phosphatase 192 H (38-126) U/L Total Protein 4.5 L (6.3-8.2) g/dL Albumin 2.2 L (3.5-5.0) g/dL Prealbumin (18.0-42.0) mg/dL 01/08/21 01/08/21 Range/Units 05:17 11:42 WBC (3.8-10.6) k/uL RBC (4.30-5.90) m/uL Hgb (13.0-17.5) gm/dL Hct (39.0-53.0) % RDW (11.5-15.5) % Plt Count (150-450) k/uL Neutrophils # (1.3-7.7) k/uL PT (9.0-12.0) sec INR (<1.2) APTT (22.0-30.0) sec ABG O2 Saturation 98.3 H (94-97) % Sodium (137-145) mmol/L BUN (9-20) mg/dL Creatinine (0.66-1.25) mg/dL Glucose (74-99) mg/dL POC Glucose (mg/dL) 164 H (75-99) mg/dL Calcium (8.4-10.2) mg/dL Ionized Calcium Vincenzo (4.5-5.3) mg/dL Total Bilirubin (0.2-1.3) mg/dL ALT (4-49) U/L Alkaline Phosphatase (38-126) U/L Total Protein (6.3-8.2) g/dL Albumin (3.5-5.0) g/dL Prealbumin (18.0-42.0) mg/dL Microbiology - Last 24 Hours (Table) 01/06/21 04:00 Gram Stain - Final Sputum Sputum Culture - Final Cristina albicans 01/05/21 06:50 Blood Culture - Preliminary Blood No Growth after 48 hours 01/05/21 17:35 Blood Culture - Preliminary Blood No Growth after 48 hours
[2021-01-08] MEDS ORDERED: DESMOPRESSIN ACETATE 4 MCG/ML VIAL (MDV) IV ONE (16:15)
[2021-01-08] MEDS: ASCORBIC ACID 500 MG TAB PO SCH (17:19)
[2021-01-08] MEDS: CHOLECALCIFEROL 25 MCG (1000 IU) TABLET PO SCH (17:19)
[2021-01-08] MEDS: CALCIUM CARBONATE 500 MG CHEWABLE PO SCH (17:19)
[2021-01-08] MEDS: ASPIRIN 81 MG PO SCH (17:19)
[2021-01-08 17:44] LABS: Glucose,Whole Blood 196 mg/dL (75-99)
--- NOTE | 2021-01-08 18:56 | PN ---
PROGRESS NOTE DATE OF SERVICE: 01/08/2021. REASON FOR FOLLOWUP: Leukocytosis, pneumonia and possible oropharyngeal candidiasis. INTERVAL HISTORY: The patient is afebrile. The patient is is on pressor support. The patient is intubated on the vent. FiO2 is currently 45%. No significant purulent secretion through the ET Or diarrhea reported by nursing staff. PHYSICAL EXAMINATION: Blood pressure is 132/67, pulse of 106, temperature 97.5. He is 95% on 35% FIO2. General description is an elderly male intubated on the vent. Respiratory system: Unlabored breathing, decreased intensity of breath sounds. No wheeze. Heart S1, S2. Regular rate and rhythm. Abdomen: Soft, no tenderness. Extremities: No edema of the feet. LABS: Hemoglobin is 10, white count 20.3, BUN of 58, creatinine is 2.05. DIAGNOSTIC IMPRESSION AND PLAN: Patient with leukocytosis, multifactorial with component nosocomial pneumonia and oropharyngeal candidiasis. Previous culture positive for Pseudomonas Sputum has been Cristina which could be colonization. Blood culture negative. Patient's white count trending down, at the bedside, multiple questions were answered. MMODL / IJN: [id number] / YUAN
[2021-01-08] MEDS: SENNOSIDES-DOCUSATE SODIUM 1 EACH TAB PO SCH (20:53)
[2021-01-08] MEDS: MONTELUKAST 10 MG TAB PO SCH (20:53)
[2021-01-08] MEDS: LATANOPROST 0.005% OPHTH DROPS 2.5 ML BTL BOTH EYES SCH (20:58)
[2021-01-09] MEDS: NOREPINEPHRINE 32 MG in SODIUM CHLORIDE 0.9% 218 ML IV SCH (00:46)
[2021-01-09] MEDS: FUROSEMIDE 100 MG in SODIUM CHLORIDE 0.9% 90 ML IV SCH ×2 (00:46→08:24)
[2021-01-09 00:50] LABS: Glucose,Whole Blood 184 mg/dL (75-99)
[2021-01-09] MEDS: INSULIN ASPART (NovoLOG) 100 UNIT/ML VIAL SQ SCH ×3 (00:55→12:55)
[2021-01-09 04:26] LABS: Anisocytosis Slight; Basophils % (A) 0 %; Eosinophils # (A) 0.1 k/uL (0-0.7); Eosinophils % (A) 1 %; HCT 25.3 % (39.0-53.0); Hypochromasia Marked; Lymphocytes % (A) 7 %; MCH 28.5 pg (25.0-35.0); MCHC 29.4 g/dL (31.0-37.0); MCV 96.7 fL (80.0-100.0); Macrocytosis Slight; Mean Platelet Volume 11.4; Monocytes # (A) 0.6 k/uL (0-1.0); Monocytes % (A) 4 %; Neutrophils # (A) 12.1 k/uL (1.3-7.7); Neutrophils % (A) 87 %; Poikilocytosis Marked; RBC 2.61 m/uL (4.30-5.90); RDW 16.2 % (11.5-15.5); WBC 13.9 k/uL (3.8-10.6)
[2021-01-09 04:40] LABS: Albumin 3.1 g/dL (3.5-5.0); Calcium 8.6 mg/dL (8.4-10.2); Potassium 3.5 mmol/L (3.5-5.1); Total Bilirubin 3.1 mg/dL (0.2-1.3); Total Protein 5.1 g/dL (6.3-8.2)
[2021-01-09] MEDS: PIPERACILLIN-TAZOBACTAM 3.375 GM in SODIUM CHLORIDE 0.9% 100 ML IVPB SCH ×2 (04:40→11:28)
[2021-01-09 04:55] LABS: HGB 7.4 gm/dL (13.0-17.5); INR 1.6 (<1.2); Platelet Count 53 k/uL (150-450); Prothrombin Time 16.3 sec (9.0-12.0)
[2021-01-09 05:00] LABS: ABG Base Excess 0.1 mmol/L; ABG HCO3 24 mmol/L (21-25); ABG Oxygen Saturation 96.4 % (94-97); ABG PCO2 35 mmHg (35-45); ABG PH 7.45 (7.35-7.45); ABG PO2 73 mmHg (83-108); ABG TCO2 25 mmol/L (19-24); Allen Test Performed? Yes
[2021-01-09 06:16] LABS: Glucose,Whole Blood 228 mg/dL (75-99)
[2021-01-09] MEDS: IPRATROPIUM-ALBUTEROL 3 ML NEB INHALATION SCH ×2 (07:37→11:31)
--- NOTE | 2021-01-09 07:47 | P.PN ---
Subjective Progress Note Date: 01/09/21 Principal diagnosis: Shortness of breath, bilateral pleural effusions, elevated LFTs, YVETTE. 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 Remains intubated and sedated on mechanical ventilation, currently FiO2 45%, PEEP 12. Remains on IV amiodarone, continuous Lasix drip, propofol for sedation, and IV Levophed, midodrine held for more than 24 hours. Remains afebrile and in fact has had low temp, WBC trending down, sputum culture sent 01/04/21 and 01/06/2021 demonstrate no growth, positive for daina, urine culture from 01/01/21 grew pseudomonas, continues on Eraxis and Zosyn per infectious disease recommendations. Remains in atrial fibrillation, rate in the 90s. Tube feedings continue, at goal 38 ml/hr with minimal residual per nursing. Urine output adequate, 3.5 L in the last 24 hours, negative fluid balance. Right internal jugular hemodialysis catheter present, continuous bleeding present yesterday, heparin gtt was stopped and vitamin k was given, HGB this morning 7.4, platelet 53,000, INR 1.6. Patient to get 1 unit PRBCs. Sedation at low dose, patient withdraws to painful stimuli. Family meeting set up for today at 9 am to address code status and allow family to ask questions Objective - Vital Signs Vital signs: Vital Signs Temp 95 F L 01/09/21 04:00 Pulse 95 01/09/21 07:00 Resp 24 01/09/21 07:00 BP 82/72 01/07/21 22:00 Pulse Ox 96 01/09/21 07:00 Intake & Output 01/08/21 01/09/21 01/09/21 18:59 06:59 18:59 Intake Total 870.634 926.947 593.176 Output Total 1955 1595 175 Balance -1084.366 -668.053 418.176 Intake: IV 160 360 10 .9 @ 10mL/hr 160 160 10 Albumin Human 25% 50 ml 200 In Empty Bag 1 bag @ 200 mls/hr IVPB Q15M [facility] Rx#: [id number] Intake, IV Titration 304.634 528.947 67.176 Amount Amiodarone 450 mg In 250 Dextrose 5% in Water 250 ml @ 0.5 MG/MIN 16.667 mls/hr IV .Q15H [facility] Rx#: [id number] Furosemide 100 mg In 97.333 81.333 Sodium Chloride 0.9% 90 ml @ 10 MG/HR 10 mls/hr IV .Q10H [facility] Rx#: [id number] Norepinephrine 32 mg In 53.435 160.308 Sodium Chloride 0.9% 218 ml @ 0.05 MCG/KG/MIN 2. 423 mls/hr IV .Q24H [facility] Rx#:[id number] propofoL 1,000 mg In 153.866 37.306 67.176 Empty Bag 1 bag @ Titrate IV .Q0M [facility] Rx#: [id number] Tube Feeding 256 38 456 Other 150 60 Output: Urine 1954 1594 175 Other: Voiding Method Indwelling Catheter Indwelling Catheter ABP, PAP, CO, CI - Last Documented Arterial Blood Pressure 108/59 - Exam CONSTITUTIONAL: Currently sedated and mechanically ventilated, in no acute distress RESPIRATORY: Lungs sounds diminished bilaterally. Respirations even, nonlabored mechanical ventilation. Currently settings assist control mode, FiO2 45%, PEEP 12, tidal volume 400, respiratory rate 22 CARDIOVASCULAR: S1, S2 present. Irregular rate and rhythm, atrial fibrillation on telemetry with rate in the 90s. Sternum stable. Palpable peripheral pulses bilaterally. Generalized edema present. Heart hugger, antibolism stockings, SCDs present. GASTROINTESTINAL: Abdomen soft, nontender, slightly distended. Hypoactive bowel sounds present 4 quadrants with tympany noted with percussion. Tube feedings infusing 38 mL per hour with minimal residual per nursing. Positive flatus noted during bath per nursing, no bowel movement yet GENITOURINARY: Barrow present draining yellow urine. Output overnight 80-200 mL per hour, 3550 mL in the last 24 hours INTEGUMENTARY: Skin is cool and dry. Anterior chest incision well approximated. Left radial artery harvest site opening, slough tissue present NEUROLOGIC: Currently sedated with propofol, does withdraw to painful stimuli INVASIVE LINES AND TUBES: Left midline IV, right PICC line, right radial arterial line, right internal jugular hemodialysis catheter present - Allied health notes Allied health notes reviewed: nursing - Labs CBC & Chem 7: 01/09/21 04:10 01/09/21 04:10 Labs: Abnormal Lab Results - Last 24 Hours (Table) 01/07/21 01/08/21 01/08/21 Range/Units 22:44 11:42 17:43 WBC (3.8-10.6) k/uL RBC (4.30-5.90) m/uL Hgb (13.0-17.5) gm/dL Hct (39.0-53.0) % MCHC (31.0-37.0) g/dL RDW (11.5-15.5) % Plt Count (150-450) k/uL Neutrophils # (1.3-7.7) k/uL PT (9.0-12.0) sec INR (<1.2) ABG pO2 (83-108) mmHg ABG Total CO2 (19-24) mmol/L Sodium (137-145) mmol/L BUN (9-20) mg/dL Creatinine (0.66-1.25) mg/dL Glucose (74-99) mg/dL POC Glucose (mg/dL) 164 H 196 H (75-99) mg/dL Total Bilirubin (0.2-1.3) mg/dL ALT (4-49) U/L Alkaline Phosphatase (38-126) U/L Total Protein (6.3-8.2) g/dL Albumin (3.5-5.0) g/dL Prealbumin 3.3 L (18.0-42.0) mg/dL 01/09/21 01/09/21 01/09/21 Range/Units 00:48 04:10 04:10 WBC (3.8-10.6) k/uL RBC (4.30-5.90) m/uL Hgb (13.0-17.5) gm/dL Hct (39.0-53.0) % MCHC (31.0-37.0) g/dL RDW (11.5-15.5) % Plt Count (150-450) k/uL Neutrophils # (1.3-7.7) k/uL PT 16.3 H (9.0-12.0) sec INR 1.6 H (<1.2) ABG pO2 (83-108) mmHg ABG Total CO2 (19-24) mmol/L Sodium 134 L (137-145) mmol/L BUN 58 H (9-20) mg/dL Creatinine 2.22 H (0.66-1.25) mg/dL Glucose 206 H (74-99) mg/dL POC Glucose (mg/dL) 184 H (75-99) mg/dL Total Bilirubin 3.1 H (0.2-1.3) mg/dL ALT 68 H (4-49) U/L Alkaline Phosphatase 171 H (38-126) U/L Total Protein 5.1 L (6.3-8.2) g/dL Albumin 3.1 L (3.5-5.0) g/dL Prealbumin (18.0-42.0) mg/dL 01/09/21 01/09/21 01/09/21 Range/Units 04:10 04:56 06:14 WBC 13.9 H (3.8-10.6) k/uL RBC 2.61 L (4.30-5.90) m/uL Hgb 7.4 L D (13.0-17.5) gm/dL Hct 25.3 L (39.0-53.0) % MCHC 29.4 L (31.0-37.0) g/dL RDW 16.2 H (11.5-15.5) % Plt Count 53 L (150-450) k/uL Neutrophils # 12.1 H (1.3-7.7) k/uL PT (9.0-12.0) sec INR (<1.2) ABG pO2 73 L (83-108) mmHg ABG Total CO2 25 H (19-24) mmol/L Sodium (137-145) mmol/L BUN (9-20) mg/dL Creatinine (0.66-1.25) mg/dL Glucose (74-99) mg/dL POC Glucose (mg/dL) 228 H (75-99) mg/dL Total Bilirubin (0.2-1.3) mg/dL ALT (4-49) U/L Alkaline Phosphatase (38-126) U/L Total Protein (6.3-8.2) g/dL Albumin (3.5-5.0) g/dL Prealbumin (18.0-42.0) mg/dL Microbiology - Last 24 Hours (Table) 01/05/21 17:35 Blood Culture - Preliminary Blood No Growth after 72 hours 01/06/21 04:00 Gram Stain - Final Sputum Sputum Culture - Final Daina albicans 01/05/21 06:50 Blood Culture - Preliminary Blood No Growth after 48 hours - Imaging and Cardiology Chest x-ray: image reviewed Assessment and Plan Assessment: 1. Shortness of breath 2. Elevated LFTs, likely from hepatic congestion, shock liver 3. Bilateral pleural effusions, drained right 650 mL, left 1200 mL 12/30/20 4. YVETTE, possibly from obstructive uropathy 5. Coronary artery disease status post PCI to the LAD in 2005 and subsequent 4 vessel CABG on 12/16/2020 6. Previously preserved left ventricular function, mildly impaired left ventricular systolic function with EF 45-50% on TTE 12/28/20, 50-55% on TTE 01/05/2021 7. Chronic atrial fibrillation on Coumadin for anticoagulation with supratherapeutic INR on admission, status post exclusion of the left atrial appendage 8. History of hypertension, currently hypotensive on IV levo, cardiogenic shock 9. History of hyperlipidemia, treated 10. Diet controlled diabetes, recent hemoglobin A1c 6.2% 11. Obstructive sleep apnea on home CPAP 12. Previous pituitary tumor 13. Never smoker, preoperative FEV1 91% of predicted 14. Prior daily wine consumption 15. 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 Acute hypoxemic respiratory failure, likely from fluid overload, requiring intubation and mechanical ventilation 01/04/2021 17. Metabolic acidosis 18. Urinary tract infection, urine culture positive for pseudomonas aeruginosa 19. Leukocytosis, sputum culture 01/04 and 01/06 positive for daina 20. Acute blood loss anemia, thrombocytopenia Plan: 1. Continue aspirin, low-dose beta junito. Hold statin until liver enzymes returned to normal 2. Continue IV amiodarone per recommendations from cardiology. Anticoagulation on hold currently due to increased bleeding 3. Wean levo as tolerated, midodrine has been held for >24 hours 4. Mechanical ventilator management per pulmonology 5. IV antibiotics per infectious disease recommendations 6. Will monitor daily labs and x-rays. Repeat CBC, if repeat shows platelet count truly low will draw HIT panel 7. Avoid nephrotoxins, IV Lasix, ultrafiltration per nephrology 8. Continue sternal precautions 9. Continue tube feedings per dietary recommendations. Suppository daily until bowel movement 10. Keep Barrow catheter in place per urologist recommendations. 11. GI and DVT prophylaxis, no heparin due to bleeding and thrombocytopenia 12. Medical management of other comorbidities per primary care service 13. Family meeting planned for today at 9 am to discuss code status, answer questions, would prefer to give patient more time to turn around 14. More recommendations to follow Time with Patient: Greater than 30
[2021-01-09] MEDS ORDERED: MD COMMUNICATION TO PHARMACY 1 EACH MISC PO PRN (08:04)
[2021-01-09 08:16] LABS: Anisocytosis Slight; HCT 24.9 % (39.0-53.0); HGB 7.4 gm/dL (13.0-17.5); Hypochromasia Marked; MCH 29.1 pg (25.0-35.0); MCHC 29.9 g/dL (31.0-37.0); MCV 97.5 fL (80.0-100.0); Macrocytosis Slight; Poikilocytosis Marked; RBC 2.55 m/uL (4.30-5.90); WBC 13.7 k/uL (3.8-10.6)
[2021-01-09 08:19] LABS: Platelet Count 61 k/uL (150-450)
--- NOTE | 2021-01-09 08:24 | XR ---
EXAMINATION TYPE: XR chest 1V portable DATE OF EXAM: 01/09/2021 Comparison: 12/31/2020 Clinical History: 80 year-old male respiratory failure Findings: ET and NG tubes are in place. Right-sided double-lumen hemodialysis catheter, tip at the cavoatrial j unction. Right PICC tip at the mid SVC level. Median sternotomy wires with post-CABG clips in the med iastinum. Heart remains mildly enlarged. Continued small bilateral pleural effusions. Patchy mid and lower lung opacities and diffuse interstitial changes persist. Consolidation is improving compared to prior exam. Impression: Correlate for continued interstitial pulmonary edema along with patchy mid and lower lung consolidati on which is showing some interval improvement. Small pleural effusions persist.
[2021-01-09] MEDS ORDERED: AMIODARONE 450 MG in DEXTROSE 5% IN WATER 250 ML IV SCH ×2 (08:30)
[2021-01-09] MEDS: MIDODRINE 5 MG TAB PO SCH ×2 (08:47→11:28)
[2021-01-09] MEDS: METOPROLOL TARTRATE 12.5 MG TAB PO SCH (08:47)
[2021-01-09] MEDS: metOLazone 5 MG TAB PO SCH (08:48)
[2021-01-09] MEDS: ANIDULAFUNGIN 100 MG in SODIUM CHLORIDE 0.9% 100 ML IVPB SCH (08:48)
[2021-01-09] MEDS: bisacodyL 10 MG SUPP RECTAL SCH (08:48)
[2021-01-09] MEDS: BACITRACIN OINT 1 EACH PACKET TOPICAL SCH (08:48)
[2021-01-09] MEDS: POTASSIUM CHLORIDE 20 MEQ in WATER FOR INJECTION 1 100ML.BAG IVPB SCH ×2 (08:49→10:24)
[2021-01-09 09:19] VITALS: BMI 38.4
[2021-01-09] MEDS: PANTOPRAZOLE 40 MG/10 ML VIAL IVP SCH (09:19)
[2021-01-09] MEDS: CHLORHEXIDINE GLUCONATE 15 ML CUP MUCOUS MEM SCH (09:20)
[2021-01-09] MEDS: LIDOCAINE 5% PATCH TOPICAL SCH (09:20)
--- NOTE | 2021-01-09 09:45 | P.PN ---
Subjective Patient is seen in follow-up for acute kidney injury. Renal function stable. Currently on Lasix drip at 10 mL an hour. Urine output about 100-125 mL an hour. Remains on Levophed. Intubated. On 45% FiO2. On amiodarone drip for A. fib. Oozing from the catheter improved post-DDAVP, vitamin K. Stich also placed by vascular surgery. Vital signs are stable. On vasopressor support. General: Intubated. HEENT: Head exam is unremarkable. LUNGS: Breath sounds decreased. HEART: Irregular rate and rhythm. ABDOMEN: Soft, no distention. EXTREMITITES: 2+ edema. Scrotal edema noted. Objective - Vital Signs Vital signs: Vital Signs Temp 97.5 F L 01/09/21 09:13 Pulse 89 01/09/21 09:13 Resp 27 H 01/09/21 09:13 BP 96/50 01/09/21 09:13 Pulse Ox 87 L 01/09/21 09:13 Intake & Output 01/08/21 01/09/21 01/09/21 18:59 06:59 18:59 Intake Total 870.634 926.947 669.509 Output Total 1955 1595 175 Balance -1084.366 -668.053 494.509 Weight 108 kg Intake: IV 160 360 10 .9 @ 10mL/hr 160 160 10 Albumin Human 25% 50 ml 200 In Empty Bag 1 bag @ 200 mls/hr IVPB Q15M [facility] Rx#: [id number] Intake, IV Titration 304.634 528.947 143.509 Amount Amiodarone 450 mg In 250 Dextrose 5% in Water 250 ml @ 0.5 MG/MIN 16.667 mls/hr IV .Q15H [facility] Rx#: [id number] Furosemide 100 mg In 97.333 81.333 76.333 Sodium Chloride 0.9% 90 ml @ 10 MG/HR 10 mls/hr IV .Q10H [facility] Rx#: [id number] Norepinephrine 32 mg In 53.435 160.308 Sodium Chloride 0.9% 218 ml @ 0.05 MCG/KG/MIN 2. 423 mls/hr IV .Q24H [facility] Rx#:[id number] propofoL 1,000 mg In 153.866 37.306 67.176 Empty Bag 1 bag @ Titrate IV .Q0M [facility] Rx#: [id number] Tube Feeding 256 38 456 Blood Product 0 Rc Pheresis 2 As3 Unit 0 [id number] Other 150 60 Output: Urine 1955 1595 175 Other: Voiding Method Indwelling Catheter Indwelling Catheter ABP, PAP, CO, CI - Last Documented Arterial Blood Pressure 108/59 - Labs CBC & Chem 7: 01/09/21 08:03 01/09/21 04:10 Labs: Abnormal Lab Results - Last 24 Hours (Table) 01/07/21 01/08/21 01/08/21 Range/Units 22:44 11:42 17:43 WBC (3.8-10.6) k/uL RBC (4.30-5.90) m/uL Hgb (13.0-17.5) gm/dL Hct (39.0-53.0) % MCHC (31.0-37.0) g/dL RDW (11.5-15.5) % Plt Count (150-450) k/uL Neutrophils # (1.3-7.7) k/uL PT (9.0-12.0) sec INR (<1.2) ABG pO2 (83-108) mmHg ABG Total CO2 (19-24) mmol/L Sodium (137-145) mmol/L BUN (9-20) mg/dL Creatinine (0.66-1.25) mg/dL Glucose (74-99) mg/dL POC Glucose (mg/dL) 164 H 196 H (75-99) mg/dL Total Bilirubin (0.2-1.3) mg/dL ALT (4-49) U/L Alkaline Phosphatase (38-126) U/L Total Protein (6.3-8.2) g/dL Albumin (3.5-5.0) g/dL Prealbumin 3.3 L (18.0-42.0) mg/dL Crossmatch 01/09/21 01/09/21 01/09/21 Range/Units 00:48 04:10 04:10 WBC (3.8-10.6) k/uL RBC (4.30-5.90) m/uL Hgb (13.0-17.5) gm/dL Hct (39.0-53.0) % MCHC (31.0-37.0) g/dL RDW (11.5-15.5) % Plt Count (150-450) k/uL Neutrophils # (1.3-7.7) k/uL PT 16.3 H (9.0-12.0) sec INR 1.6 H (<1.2) ABG pO2 (83-108) mmHg ABG Total CO2 (19-24) mmol/L Sodium 134 L (137-145) mmol/L BUN 58 H (9-20) mg/dL Creatinine 2.22 H (0.66-1.25) mg/dL Glucose 206 H (74-99) mg/dL POC Glucose (mg/dL) 184 H (75-99) mg/dL Total Bilirubin 3.1 H (0.2-1.3) mg/dL ALT 68 H (4-49) U/L Alkaline Phosphatase 171 H (38-126) U/L Total Protein 5.1 L (6.3-8.2) g/dL Albumin 3.1 L (3.5-5.0) g/dL Prealbumin (18.0-42.0) mg/dL Crossmatch 01/09/21 01/09/21 01/09/21 Range/Units 04:10 04:56 06:14 WBC 13.9 H (3.8-10.6) k/uL RBC 2.61 L (4.30-5.90) m/uL Hgb 7.4 L D (13.0-17.5) gm/dL Hct 25.3 L (39.0-53.0) % MCHC 29.4 L (31.0-37.0) g/dL RDW 16.2 H (11.5-15.5) % Plt Count 53 L (150-450) k/uL Neutrophils # 12.1 H (1.3-7.7) k/uL PT (9.0-12.0) sec INR (<1.2) ABG pO2 73 L (83-108) mmHg ABG Total CO2 25 H (19-24) mmol/L Sodium (137-145) mmol/L BUN (9-20) mg/dL Creatinine (0.66-1.25) mg/dL Glucose (74-99) mg/dL POC Glucose (mg/dL) 228 H (75-99) mg/dL Total Bilirubin (0.2-1.3) mg/dL ALT (4-49) U/L Alkaline Phosphatase (38-126) U/L Total Protein (6.3-8.2) g/dL Albumin (3.5-5.0) g/dL Prealbumin (18.0-42.0) mg/dL Crossmatch 01/09/21 01/09/21 Range/Units 07:07 08:03 WBC 13.7 H (3.8-10.6) k/uL RBC 2.55 L (4.30-5.90) m/uL Hgb 7.4 L (13.0-17.5) gm/dL Hct 24.9 L (39.0-53.0) % MCHC 29.9 L (31.0-37.0) g/dL RDW 16.0 H (11.5-15.5) % Plt Count 61 L (150-450) k/uL Neutrophils # (1.3-7.7) k/uL PT (9.0-12.0) sec INR (<1.2) ABG pO2 (83-108) mmHg ABG Total CO2 (19-24) mmol/L Sodium (137-145) mmol/L BUN (9-20) mg/dL Creatinine (0.66-1.25) mg/dL Glucose (74-99) mg/dL POC Glucose (mg/dL) (75-99) mg/dL Total Bilirubin (0.2-1.3) mg/dL ALT (4-49) U/L Alkaline Phosphatase (38-126) U/L Total Protein (6.3-8.2) g/dL Albumin (3.5-5.0) g/dL Prealbumin (18.0-42.0) mg/dL Crossmatch See Detail Microbiology - Last 24 Hours (Table) 01/05/21 06:50 Blood Culture - Preliminary Blood No Growth after 72 hours 01/05/21 17:35 Blood Culture - Preliminary Blood No Growth after 72 hours 01/06/21 04:00 Gram Stain - Final Sputum Sputum Culture - Final Cristina albicans Assessment and Plan Plan: Assessment: 1. Acute kidney injury secondary to ATN secondary to cardiorenal syndrome and hypotension. Creatinine stable at 2.22 today. 2. Volume overload. 3. A. fib with RVR maintained on amiodarone drip. 4. Pseudomonas UTI on antibiotics. 5. Acute hypoxic respiratory failure. 6. Hypervolemic hyponatremia. 7. Shock maintained on Levophed. Also on midodrine. Cortisol level not low. 8. Hypokalemia from diuresis. Being replaced. Plan: Maintain Lasix drip and metolazone. Continue to monitor renal function and urine output. Avoid nephrotoxins. Wean FiO2 and vasopressors. Status post IV albumin January 08. Plan for UF only treatment today as able to tolerate. Femoral dialysis catheter was placed January 07. Prognosis guarded.
--- NOTE | 2021-01-09 10:07 | CONS ---
CONSULTATION DATE OF SERVICE: 12/28/20 I have seen, examined, and agree with the midlevel's findings. MMODL / IJN: [id number] / [id number]
--- NOTE | 2021-01-09 11:26 | PN ---
PROGRESS NOTE Mr. Valero is a 80-year-old male who is status post coronary artery bypass grafting, history of chronic persistent atrial fibrillation, who had progressive dyspnea and respiratory failure requiring mechanical ventilation. He is intubated. Dialysis could not be done yesterday because of bleeding at the site of his dialysis catheter. He is tolerating feeding tube. Hemodynamically he continues to be in atrial fibrillation. There is no evidence of ventricular ectopic activity. His urine output continues to be good. He had a low-grade fever earlier. He continues to be on the IV amiodarone as well as the IV Lasix drip. He is off the IV heparin at this time because of the oozing at the site of his dialysis catheter. He is on midodrine in addition to Zaroxolyn 5 mg daily and metoprolol tartrate 12.5 mg twice a day. PHYSICAL EXAMINATION: He is intubated. Blood pressure in the low 100s with a heart rate in the 90s. LUNGS: Clear anteriorly. HEART: Irregularly irregular. S1, S2. No S3, with a systolic murmur at the base. No diastolic murmur. ABDOMEN: Soft. Positive bowel sounds. No organomegaly. EXTREMITIES: Plus 1 to 2 edema bilaterally. LAB DATA: Hemoglobin 7.4, white blood cells 13.9. His BUN and creatinine are 58 and 2.2, which have been stable. Potassium 3.5. His AST is 26, ALT 68. IMPRESSION: 1. Respiratory failure requiring mechanical ventilation. 2. Fluid overload. 3. Acute renal injury. Dialysis was not done yesterday. 4. Status post coronary artery bypass grafting. 5. Chronic persistent atrial fibrillation. 6. Mild cardiomyopathy. 7. Shock liver, improved. 8. History of hyperlipidemia. RECOMMENDATIONS: From the cardiac standpoint, will continue supportive care. Patient will be re- evaluated for possible dialysis today. He may require transfusion. His INR was elevated, but it is down at this point. He has received vitamin K. Depending on his progress, further recommendations will be made. The prognosis remains guarded. MMODL / IJN: [id number] /
--- NOTE | 2021-01-09 11:53 | P.PN ---
Subjective Progress Note Date: 01/09/21 HISTORY OF PRESENT ILLNESS This is a 80-year-old male patient of Dr. Campos and Dr. Mullins with past medical history of chronic persistent atrial fibrillation, diabetes mellitus type 2, hypertension, hyperlipidemia, history of pituitary tumor resection, obstructive sleep apnea on BiPAP, gastroesophageal reflux disease, benign prostatic hypertrophy. He should also has history of coronary artery disease status post PCI to the LAD in 2005, heart catheterization in October 2020 found severe triple-vessel disease, subsequently admitted to the hospital for elective coronary artery bypass grafting 12/16 for four-vessel bypass MORAN to LAD, left radial artery from the aorta to the first obtuse marginal artery, reverse saphenous vein graft from the aorta to the second diagonal artery, reverse saphenous vein graft from the aorta to the posterior descending artery, endoscopic harvesting of the left radial artery, endoscopic harvesting of the left greater saphenous vein from ankle to the groin, exclusion of the left atrial appendage. During his last admission, he remained in ICU,Until December 24,, and after he was transferred to [facility] for cardiac recovery program. He has chronic atrial fibrillation, diabetes mellitus type 2, hypertension, hyperlipidemia, history of pituitary gland resection, obstructive sleep apnea, BPH with urinary retention, and delirium.. At the time of discharge, he was on Coumadin and Singulair Cardizem CD lisinopril Tylenol, he was taken off atenolol Vytorin lisinopril Imdur aspirin and nitro. -He comes back to the emergency room 2 days later, from [facility], secondary to shortness of breath, and edema. She also has worsening of her liver issues, with no visible jaundice. On ER presentation, he has indwelling Barrow catheter, there is no fever, no focal deficit, chest pain, he has shortness of breath, no vomiting, no diarrhea, no melena. In the emergency room, EKG shows atrial fibrillation heart rate of 79, no significant change compared to 927 EKG, double basic count is 15, hemoglobin of 9, sodium of 131, BUN 62 creatinine 4.7, CO2 of 19 total bili of 7.3, AST 949 ALT 881, alkaline phosphatase 411, troponin is stagnant at 0.14, and 0.148. Lactic acid level was 2.1, INR is 3.3 ultrasound of the gallbladder, shows common bile duct is normal, liver is enlarged, otherwise no other pathologies noted. Chest x-ray shows bilateral pleural effusion, basilar pulmonary infiltrates, which slightly is worse compared to previous, mild heart failure is possible, cardiomegaly some change patient is admitted to ICU with consultation to critical care medicine Dr. Vásquez, and cardiology. Chest ultrasound is ordered CMV and hepatitis panels ordered, patient would need a CAT scan of the abdomen, to eval for spleen gallbladder, Tylenol is discontinued, Lipitor is discontinued check for haptoglobin, reticulocyte count, and iron studies to evaluate portal system. 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 INR is 3. Sodium 132, potassium 4.1, chloride 100, CO2 18, BUN 65 and creatinine 1.81, blood sugar 119. Total bilirubin 6.5, AST 493, ALT 663, alkaline phosphatase 360. INR is 3.0. Magnesium 2.6. Lipase 473. CMV nonreactive 2 draws. Hepatitis panel negative. Repeat chest x-ray reveals patchy perihilar and basilar infiltrates/atelectasis as well as pleural effusions persist without significant interval change. Dr. Cartagena has ordered for vitamin K 2.5 mg and repeat INR with plan for thoracentesis once INR is und er 2. Patient is also followed by cardiology and Lasix decreased to 40 mg IV daily. Echocardiogram reveals EF of 45-60% with moderate concentric left hypertrophy, LA is severely dilated, mild to moderate mitral regurgitation, mild tricuspid regurgitation. Patient denies having any shortness of breath at rest. He denies abdominal pain, no nausea. He has had good urine output around 35 mL per hour. 12/30: Patient underwent right sided thoracentesis this morning with Dr. Cartagena with removal of approximately 650 ML's of turbid fluid. Repeat chest x- ray following procedure showed no complications. Patient was on BiPAP during the night and currently on O2 by nasal cannula at 3 L with pulse ox of 97%. Blood pressure 101/64, heart rate 81, afebrile. Patient has been seen and followed by nephrology for acute kidney injury secondary to hypotension and hypoperfusion. Plan is to continue diuresis in the patient, hold MAURA inhibitor, check cortisol level, monitor I&O's. Midodrine was increased yesterday. Repeat blood work today reveals WBC 12.2, hemoglobin 9.9 and platelet count 312. INR this morning was 1.9. Sodium 128, potassium 4.7, chloride 95, CO2 21, BUN 71 and creatinine 2.11. Blood sugars running between 109 and 134. Repeat liver function tests reveal total bilirubin 6, AST 28, ALT 535, alkaline phosphatase 295. Magnesium 2.8. Cortisol level came back at 27. Patient will be transferred to the cardiac stepdown unit. 12/31: Patient remains in the intensive care unit, today resting in bed on BiPAP. Patient became hypotensive overnight and required levo fed and was transferred back to the intensive care unit. Levo fed is currently off. Repeat blood work reveals WBC 16.5, hemoglobin 10.4, platelet count 282. Sodium 125, potassium 5.8, BUN 77 and creatinine 2.75. AST 1302, ALT 987, alkaline phosphatase 236. INR 2.9. Patient is followed by multiple consultants including cardiology, pulmonary medicine, nephrology and cardiothoracic surgery. Patient has been reaching 1000 on incentive spirometry. CAT scan of the abdomen and pelvis reveals nonobstructive left nephrolithiasis. Left pleural effusion difficult to exclude basilar pneumonia or atelectasis. There may be a posterior dependent he will. Cardiac. Coronary artery disease. Repeat chest x-ray reveals stable bibasilar infiltrate and small left pleural effusion. Renal ultrasound reveals limited assessment of left kidney demonstrate no definite hydronephrosis or hydroureter lysis. No hydronephrosis on the right kidney 01/01: Patient remains in the intensive care unit, resting in chair on nasal oxygen and appears to be comfortable. Pulse ox is 99%, blood pressure 80/65 and he is on levo fed. Lopressor was decreased by nephrology. Heart rate is 106, afebrile. Repeat blood work reveals WBC 10.1, hemoglobin 10.3, platelet count 291. INR 2.7. Sodium 130, potassium 4.0, chloride 94, CO2 25, BUN 76 and creatinine 2.38. Calcium 7.7. Magnesium 2.8. AST 824, ALT 920, alkaline p hosphatase 210. Patient received calcium gluconate 1 g this morning. Chest x-ray reveals pleural parenchymal density left lower lobe persistent appears to be somewhat improved. 01/02: Patient remains in intensive care unit. He appears to be less jaundiced today. Urine is blood tinged. He states he is uncomfortable all over his body but no specific pain. He states he is skinny interrupted sleep throughout the night and melatonin increased. He continues not have appetite and Remeron added. Discussed with cardiothoracic surgery transitioning patient to eliquis although patient had episodes of nausea with this and to discuss other options, and also regard the posterior hemopericardium. Patient has been afebrile, heart rate 105, blood pressure 103/70, pulse ox 99% 2 L nasal cannula. Repeat blood work reveals WBC 10.8, hemoglobin 10.6, platelet count 251. Sodium 131, potassium 3.7, chloride 100, CO2 22, BUN 16 creatinine 1.41. Blood sugars are running between 105 and 144. Lactic acid 2.1. Calcium 7.8. Liver function tests are improving with total bilirubin 3.5, AST 449, ALT 684, alkaline phosphatase 194. LDH 1192. Lipase 302. 01/03: Patient evaluated this morning, remains in intensive care unit, patient is awake and alert, is currently on room air. Repeat chest x-ray shows pleural parenchymal lung base that is unchanged. Repeat blood work reveals hemoglobin 10.6, platelet count of 220, INR 3.1, sodium 132, BUN 58, creatinine 1.48, AST 319, ALT 578, Alk Phos 190. Liver function tests are improving. Urine culture showed Pseudomonas aeruginosa, he is on cefepime. Telemetry showing atrial fibrillation, he was started on xarelto yesterday for anticoagulation, and was held today for increase in INR. He was given calcium gluconate and albumin today and also a dose of Lasix Vital signs are heart rate 103, respiratory rate 13, blood pressure 92/72, 94% on room air. 01/04: Patient evaluated this morning, remains in the ICU, sitting up resting in the bedside recliner, patient is awake and alert. Labs show hemoglobin 10.5, platelets 221, INR 2, potassium 4.1, BUN 59, creatinine 1.57, total bilirubin 2.8, AST 188, ALT 457, alk phos 222, albumin 2.9. Telemetry still showing atrial fibrillation with an elevated rate, cardiology is following and is on amiodarone 400 mg twice a day. Patient continues to have problems with blood pressure and postural hypotension. Flomax was discontinued, urology consult appreciated. Recommends to continue with the Barrow catheter until he is more stabilized and ambulating, then we'll plan to remove the catheter and do a voiding trial. Pulmonary reviewed repeat chest x-ray from today and shows a moderate sized left sided pleural effusion, right-sided pleural effusion has recovered. Pulmonary considering possibly doing another thoracentesis on the left side. Patient does not require any pressors at this point. Patient still has extensive edema in the upper and lower extremities with signs of fluid overload, Lasix 40 mg IV ordered. He continues on cefepime for Pseudomonas aeruginosa in the urine. Oral intake continues to be poor, recently started on Remeron. 01/05: Patient was intubated last evening and was started on propofol, norepinephrine and was on amiodarone. Patient is currently on mechanical ventilation with tidal volume 400, FiO2 60, PEEP of 10. He is undergoing echocardiogram at this time which reported EF of 50-55% with moderate concentric left ventricular hypertrophy, no pericardial effusion.. He continues to have significant anasarca and edema. Heart rate is running in the low 100s with atrial fibrillation. Repeat blood work reveals WBC 17.3, hemoglobin 12, platelet count 185. INR is 1.8. Sodium 131, potassium 3.9, chloride 99, CO2 20, BUN 61 and creatinine 1.73. Blood sugars are running between 141 and 203. Total bilirubin 2.7, AST 89, ALT 300, alkaline phosphatase 201. Cortisol level LV. Chest x-ray reveals worsening left lower lobe infiltrate. Small to modera te pleural effusion may be worsening. Increased perihilar infiltrates more notably on the right. CT of the abdomen and pelvis with contrast revealed bilateral lower lobe pulmonary consolidation and pleural fluid. Cardiomegaly. Congestive heart failure is possible. Some loculated ascites fluid noted in the abdomen. No free air. No sign of mechanical bowel obstruction. Subcutaneous edema around the abdomen. 01/06 patient evaluated on 01/06 remains in the ICU intubated. continues to remain on assist control on FiO2 50% BP is improved from 10 to a respiratory rate of 22. Chest x-ray suggestive of pulmonary edema patient remains on Lasix drip at 10 mics per hour. Metolazone initiated at 5 mg daily. Patient continues to remain in atrial fibrillation continue amiodarone at 1 monique per minute. On sedation maintained with propofol. Patient continued to remain on norepinephrine definite 0.3 monique per KG per minute. Labs were reviewed patient's WBC worsened to 29.3 hemoglobin 10.6 increase in neutrophils. ABG obtained this from pH 7.42 pCO2 32, pO2 105 sodium 131 bicarb 18 BUN 15 and creatinine 1.9 lactic acid was 2.2 calcium 7.8 phosphorus 4.7 liver enzymes continued to do wntrend with AST 60 ALT [address] abdomen reviewed suggestive of severe anasarca change with third spacing severe lower lobe and inferior lingular consolidation suggestive of aspiration pneumonitis extensive edema that is changes involving the deeper plane of visualized upper thighs arm. Second concern showed bladder wall thickening representing chronic bladder wall hypertrophy and cystitis.. 5.9 cm noted. Infectious disease consulted the Zosyn added. No sign of bowel ischemia noted. Abdominal ultrasound suggestive of mild abdominal ascites with moderate right pleural effusion no obvious hydronephrosis, gallstones or biliary duct dilation noted infection noted. En teral feeding to be initiated today 01/07 patient remains intubated, on assist control FiO2 reduced to 55%, PEEP of 12. Continues to remain on IV Solu-Medrol, Lasix drip, heparin drip, propofol and IV Levophed. Vitals reviewed patient is afebrile pulse 80. Respiratory rate 21 blood pressure 105/62. On 91% saturation on 55% FiO2. Urine output adequate at 40-60 mg per hour. Patient continued to gain weight and has gained 13 kg since admission. WBC is assist 28.5 hemoglobin 10.8 INR is high at 3.1 sodium 131 potassium 2.8 BUN 16 creatinine 2.2 to glucose 167 calcium 7.8 AST ALT continue to improve. Pro-calcitonin 5.12. Continues to remain on Zosyn per infectious disease recommendation. 01/08: She remains in the intensive care unit, intubated and on mechanical ventilation with tidal volume 400, FiO2 45, PEEP of 12. He is currently on Lasix drip, albumin, norepinephrine, calcium gluconate, propofol. Patient's is at bedside and states that he has not had a bowel movement since he started having abdominal pain. Patient is now on dialysis due to generalized anasarca. Barrow catheter is draining urine with good amount of 100 225 mL per hour. Lasix drip is at 10 ML's an hour. Patient is also on amiodarone drip currently in atrial fibrillation. 01/09: Patient remains intubated on mechanical ventilation with tidal volume 400, FiO2 80 and PEEP of 10. Patient has a right IJ dialysis catheter in place which has had bleeding through the night. Heparin drip was discontinued and vitamin K was given. Patient remains on levo fed, amiodarone, Lasix drip, propofol. Repeat blood work reveals WBC 13.7, hemoglobin 7.4, platelet count 61. BUN 58 creatinine 2.22. Blood sugars 184-228. AST 26, ALT 68, alkaline phosphatase 171. Hemoglobin dropped from 10.7 yesterday to 7.4 and he was transfused 1 unit of packed RBCs and will 1 unit of frozen plasma. Patient has good urine output. Temperature down to 95. Heart rate in the 90s, respiratory rate in the high 20s, blood pressure 113/57, pulse ox 92%. Multiple family members are in the room at this time and are discussing option of moving towards comfort care. REVIEW OF SYSTEMS unable to obtain due to intubation PHYSICAL EXAMINATION Gen: This is a 80-year-old male. Patient is resting in ICU bed, i ntubated and on mechanical ventilation. He appears to be comfortable. HEENT: Head is atraumatic, normocephalic. Pupils equal, round. Sclerae is anicteric. Oral ET tube on tube feedings. NECK: Supple. No JVD. No lymphadenopathy. No thyromegaly. LUNGS: Diminished to the bilateral basis. No intercostal retractions. HEART: Irregular rate and rhythm. No murmur. ABDOMEN: Soft. Bowel sounds are sluggish. No masses. No tenderness. Barrow catheter. EXTREMITIES: 3+ bilateral pedal edema mildly improved. Scrotal edema with pitting edema involving the subcutaneous plane of the abdomen and back. NEUROLOGICAL: Patient is intubated ASSESSMENT AND PLAN 1. Acute hypoxic respiratory failure secondary to fluid overload and pleural effusions and possible aspiration pneumonia. Intubation on 01/04. Patient is status post right-sided thoracentesis on 12/30 of 650 mL, continue Lasix drip with metolazone 5 mg by mouth daily monitor I&O and daily weights, monitor renal function and electrolytes. Zosyn initiated on 01/06. Infectious disease was consulted and added Eraxis 01/07. 2. Severe coagulopathy, on Coumadin, with worsening of transaminitis, with jaundice, suspect hepatobiliary obstruction, ischemic liver cirrhosis. Lipitor and Tylenol was discontinued and held. Coumadin is on hold. Patient off heparin drip due to bleeding at dialysis site. 3. Acute kidney injury and chronic kidney disease stage II secondary to hypoperfusion, obstructive uropathy with balloon not in the bladder. Consult with nephrology appreciated. Avoid nephrotoxic agents. Barrow cath apparently was not in the bladder and has been replaced. Continuous function continues to worsen patient continues to remain on diuretics and started on dialysis. 4. Acute sepsis with septic shock and cardiogenic shock. Continue Zosyn and Eraxis . Infectious disease consult appreciated. 5. Coronary artery disease status post 4 vessel CABG 12/16. Continue current management per cardio thoracic surgery. Continue aspirin 81 mg daily, Lipitor on hold, Lopressor 12.5 mg twice daily 6. Chronic persistent atrial fibrillation. Heparin drip discontinued, continue amiodarone drip, Lopressor 12.5 mg twice daily. 7. Acute transaminitis likely secondary to congestive heart failure trending down. 8. Hypovolemic hyponatremia. Continue to monitor sodium. 9. Diabetes mellitus type 2. Continue with NovoLog scale before meals and at bedtime, blood sugar is controlled. 10. Hypertension. Patient is currently hypotensive on norepinephrine. Continue Lopressor. 11. Hyperlipidemia. Hold Lipitor. 12. Urinary retention. Maintain Barorw catheter. 13. History of pituitary gland resection. 14. Obstructive sleep apnea on BiPAP. 15. Gastroesophageal reflux disease. 16. Possible posterior katie-pericardium, ruled out. 17. DVT prophylaxis. HA hose. 18. Postural hypotension. Flomax held. 19. GI prophylaxis. Protonix. 20 anasarca with pleural effusions scrotal edema on Lasix drip 10 mg per hour with metolazone at 5 mg by mouth daily, dialysis 21 mild protein calorie malnutrition. Low albumin Enteral feeding initiated CODE STATUS: Full code Prognosis poor. Family is considering comfort care. Impression and plan of care have been directed as dictated by the signing physician. Erica Alfredo nurse practitioner acting as scribe for signing guru miller. Objective - Vital Signs Vital signs: Vital Signs Temp 98.2 F 01/09/21 11:17 Pulse 90 01/09/21 11:17 Resp 27 H 01/09/21 11:17 BP 113/57 01/09/21 11:17 Pulse Ox 92 L 01/09/21 11:17 Intake & Output 01/08/21 01/09/21 01/09/21 18:59 06:59 18:59 Intake Total 870.634 651.322 3676.053 Output Total 5 1595 495 Balance -1084.366 -668.053 906.053 Weight 108 kg Intake: IV 160 360 240 .9 @ 10mL/hr 160 160 40 Albumin Human 25% 50 ml 200 In Empty Bag 1 bag @ 200 mls/hr IVPB Q15M BRENDA Rx#: [id number] Anidulafungin 100 mg In 100 Sodium Chloride 0.9% 100 ml @ 84 mls/hr IVPB DAILY [facility]ENDA Rx#:[id number] Potassium Chloride 20 meq 100 In Water For Injection 1 100ml.bag @ 50 mls/hr IVPB Q2H [facility]ENDA Rx#: [id number] Intake, IV Titration 304.634 528.947 167.053 Amount Amiodarone 450 mg In 250 Dextrose 5% in Water 250 ml @ 0.5 MG/MIN 16.667 mls/hr IV .Q15H BRENDA Rx#: [id number] Furosemide 100 mg In 97.333 81.333 76.333 Sodium Chloride 0.9% 90 ml @ 10 MG/HR 10 mls/hr IV .Q10H [facility]ENDA Rx#: [id number] Norepinephrine 32 mg In 53.435 160.308 Sodium Chloride 0.9% 218 ml @ 0.05 MCG/KG/MIN 2. 423 mls/hr IV .Q24H [facility]ENDA Rx#:[id number] propofoL 1,000 mg In 153.866 37.306 90.720 Empty Bag 1 bag @ Titrate IV .Q0M BRENDA Rx#: [id number] Tube Feeding 256 38 570 Blood Product 284 Ffp 24 Pher Acda Cnt2 0 Unit [id number] Rc Pheresis 2 As3 Unit 284 [id number] Other 150 140 Output: Urine 5 1595 495 Other: Voiding Method Indwelling Catheter Indwelling Catheter Indwelling Catheter ABP, PAP, CO, CI - Last Documented Arterial Blood Pressure 86/49 - Labs CBC & Chem 7: 01/09/21 08:03 01/09/21 04:10 Labs: Abnormal Lab Results - Last 24 Hours (Table) 01/08/21 01/08/21 01/09/21 Range/Units 11:42 17:43 00:48 WBC (3.8-10.6) k/uL RBC (4.30-5.90) m/uL Hgb (13.0-17.5) gm/dL Hct (39.0-53.0) % MCHC (31.0-37.0) g/dL RDW (11.5-15.5) % Plt Count (150-450) k/uL Neutrophils # (1.3-7.7) k/uL PT (9.0-12.0) sec INR (<1.2) ABG pO2 (83-108) mmHg ABG Total CO2 (19-24) mmol/L Sodium (137-145) mmol/L BUN (9-20) mg/dL Creatinine (0.66-1.25) mg/dL Glucose (74-99) mg/dL POC Glucose (mg/dL) 164 H 196 H 184 H (75-99) mg/dL Total Bilirubin (0.2-1.3) mg/dL ALT (4-49) U/L Alkaline Phosphatase (38-126) U/L Total Protein (6.3-8.2) g/dL Albumin (3.5-5.0) g/dL Crossmatch 01/09/21 01/09/21 01/09/21 Range/Units 04:10 04:10 04:10 WBC 13.9 H (3.8-10.6) k/uL RBC 2.61 L (4.30-5.90) m/uL Hgb 7.4 L D (13.0-17.5) gm/dL Hct 25.3 L (39.0-53.0) % MCHC 29.4 L (31.0-37.0) g/dL RDW 16.2 H (11.5-15.5) % Plt Count 53 L (150-450) k/uL Neutrophils # 12.1 H (1.3-7.7) k/uL PT 16.3 H (9.0-12.0) sec INR 1.6 H (<1.2) ABG pO2 (83-108) mmHg ABG Total CO2 (19-24) mmol/L Sodium 134 L (137-145) mmol/L BUN 58 H (9-20) mg/dL Creatinine 2.22 H (0.66-1.25) mg/dL Glucose 206 H (74-99) mg/dL POC Glucose (mg/dL) (75-99) mg/dL Total Bilirubin 3.1 H (0.2-1.3) mg/dL ALT 68 H (4-49) U/L Alkaline Phosphatase 171 H (38-126) U/L Total Protein 5.1 L (6.3-8.2) g/dL Albumin 3.1 L (3.5-5.0) g/dL Crossmatch 01/09/21 01/09/21 01/09/21 Range/Units 04:56 06:14 07:07 WBC (3.8-10.6) k/uL RBC (4.30-5.90) m/uL Hgb (13.0-17.5) gm/dL Hct (39.0-53.0) % MCHC (31.0-37.0) g/dL RDW (11.5-15.5) % Plt Count (150-450) k/uL Neutrophils # (1.3-7.7) k/uL PT (9.0-12.0) sec INR (<1.2) ABG pO2 73 L (83-108) mmHg ABG Total CO2 25 H (19-24) mmol/L Sodium (137-145) mmol/L BUN (9-20) mg/dL Creatinine (0.66-1.25) mg/dL Glucose (74-99) mg/dL POC Glucose (mg/dL) 228 H (75-99) mg/dL Total Bilirubin (0.2-1.3) mg/dL ALT (4-49) U/L Alkaline Phosphatase (38-126) U/L Total Protein (6.3-8.2) g/dL Albumin (3.5-5.0) g/dL Crossmatch See Detail 01/09/21 Range/Units 08:03 WBC 13.7 H (3.8-10.6) k/uL RBC 2.55 L (4.30-5.90) m/uL Hgb 7.4 L (13.0-17.5) gm/dL Hct 24.9 L (39.0-53.0) % MCHC 29.9 L (31.0-37.0) g/dL RDW 16.0 H (11.5-15.5) % Plt Count 61 L (150-450) k/uL Neutrophils # (1.3-7.7) k/uL PT (9.0-12.0) sec INR (<1.2) ABG pO2 (83-108) mmHg ABG Total CO2 (19-24) mmol/L Sodium (137-145) mmol/L BUN (9-20) mg/dL Creatinine (0.66-1.25) mg/dL Glucose (74-99) mg/dL POC Glucose (mg/dL) (75-99) mg/dL Total Bilirubin (0.2-1.3) mg/dL ALT (4-49) U/L Alkaline Phosphatase (38-126) U/L Total Protein (6.3-8.2) g/dL Albumin (3.5-5.0) g/dL Crossmatch Microbiology - Last 24 Hours (Table) 01/05/21 06:50 Blood Culture - Preliminary Blood No Growth after 72 hours 01/05/21 17:35 Blood Culture - Preliminary Blood No Growth after 72 hours 01/06/21 04:00 Gram Stain - Final Sputum Sputum Culture - Final Cristina albicans
[2021-01-09 12:25] VITALS: TEMP 97.1
[2021-01-09 12:25] LABS: Glucose,Whole Blood 218 mg/dL (75-99)
[2021-01-09] MEDS: FERROUS SULFATE 325 MG TAB PO SCH (12:55)
--- NOTE | 2021-01-09 13:00 | P.PN ---
Subjective Progress Note Date: 01/09/21 Principal diagnosis: Acute hypoxic respiratory failure, secondary to acute systolic congestive heart failure and bilateral pleural effusions. 01/04/2021, the patient is struggling. Despite the fact that he is on room air oxygen, he seems to be uncomfortable and he keeps on 1 set up on a recliner. His oral intake is minimal. He has no stamina. He seems to be very much disco uraged and he feels at times that he wants to quit the treatment. In terms of his pulmonary status, he is on room air oxygen, I reviewed the chest x-ray from today and there is a moderate-sized left-sided pleural effusion. Right-sided pleural effusion has essentially recovered. Note that the patient has undergone bilateral thoracentesis. He continues to have signs of fluid overload with fluid in his upper and lower extremities with some fluid weeping from his skin in lower extremities. He is receiving Lasix 40 mg IV on a daily basis. Overall fluid balance over the past 24 hours has been in the order of negative to 80 mL. He continues to have episodes of atrial fibrillation with rapid ventricular response. Along with A. fib RVR, he became hypotensive and his urine output dropped. He was given IV albumin. He was given a bolus of 500 mL yesterday. He was started on amiodarone drip loading, initially on 1 mg per minute and later on 0.5 mg per minute. His current heart rate is around 110. His most recent blood pressure is 99/61. His serum albumin is at 2.9. INR is at 2.0. Creatinine is at 1.5 with a BUN of 59, sodium is at 132, serum bicarbonate 20. Oral intake is quite diminished at this point in time. His echocardiogram was showing a preserved LV function. Urology evaluated the patient. The recommendation was to keep in the Barrow catheter. He is completing a 5 day course of IV cefepime regarding pseudomonas aeruginosa in the urine with possible infection. He is afebrile for now. Surgical wound site is dry clean and intact. His last bowel movement was 2 days ago. Patient was reevaluated today on 01/05/21, patient deteriorated last night, and he was intubated and placed on mechanical ventilation. He is presently on FiO2 of 60% tidal volume of 400 assist control rate of 22 and PEEP of 10. ABG showed a pO2 of 74 pCO2 of 39 pH of 7.39. Patient is sedated, he is on propofol at 30 mcg/kg/m, hypotensive requiring norepinephrine at 0.25 mcg/kg/m, is also on amiodarone drip at 1 mg/m, and IV fluid at KVO. Patient is not making much urine, does not seem to be making any urine output with Lasix IV push, hence I recommended starting the patient on Lasix at 10 mg per hour drip. Chest x-ray is consistent with congestive heart failure, patient is extremely edematous, he has abdominal distention, abdominal wall edema, and significant bipedal edema. Patient will be pancultured, he had a lactic acid of 3.0 earlier today. Cortisol level is 55. He believes he got is 17.3 hemoglobin is 12. Electrolytes are relatively normal except for bicarb of 20 BUN is 61 creatinine 1.73. Liver enzymes are a bit elevated but they seem to be improving over the last few days. Patient again is now on Lasix drip at 10 mg per hour, he is on Zosyn empirically. She is also on GI prophylaxis, and on bronchodilators. He was on Coumadin with INR of 1.8 today, and I would likely recommend heparin, patient will eventually need a PICC line placed tomorrow, today I went ahead and placed on arterial line because of his profound hypotension requiring relatively high dose of norepinephrine. Reevaluated today on 01/06/21, patient remains in the ICU, remains intubated and mechanically ventilated. He is on assist control rate of 20 to tell volume is 400 FiO2 50% and PEEP of 10. ABG today showed a pO2 of 105 pCO2 of 32 pH of 7.32. Chest x-ray continues to show evidence of pulmonary edema. Patient remains on Lasix drip at 10 mg per hour, amiodarone at 1 mg/m, propofol at 20 heparin drip, is also on norepinephrine at 0.3 mcg/kg/m. Patient continues to h ave leukocytosis, cultures so far nondiagnostic although he did have a UTI. Blood cultures are negative so far. Infectious disease consultation was initiated, patient is presently on Zosyn. Echocardiogram showed no evidence of temporal not, but it did show evidence of ejection fraction of 45%. Patient remains in atrial fibrillation, however rate seems to be fairly well controlled. Nutrition-hernandez the patient will be started on enteral feeding today via orogastric tube. WBC count today is up to 29.6 hemoglobin is 10.8 electrolytes are normal renal profile showed slight worsening with a BUN of 59 and creatinine 1.99, however the patient seems to be improving with diuresis, and renal output seems to be better. Lactic acid is 2.2 today. Liver enzymes are borderline elevated. Reevaluated today on 01/07/21, remains in the ICU, intubated and mechanically ventilated. He is on assist control rate of 22, tidal volume 400 FiO2 70%, patient was on 50% however he desaturated overnight, I went ahead today and increased the PEEP to 12, and I cut down the FiO2 to 55% from 70%. ABG this mor linnea on 50% showed a pO2 of 55 pCO2 33 pH of 7.42. Patient remains on norepinephrine at 0.4 mcg/kg/m, amiodarone at 1 mg/m, and I will cut down to 0.5. He is on propofol at 20 heparin drip, Lasix at 10 mg per hour, and IV fluid at KVO. Urine output is excellent, however patient remains in positive fluid balance, and nephrology is planning ultrafiltration on the patient sometime today. Patient remains in atrial fibrillation with a relatively controlled rate. Remains on enteral feeding. Remains on antibiotics. Blood cultures and sputum cultures are nondiagnostic. His urine was positive for pseudomonas aeruginosa on admission. Patient is sedated, but not paralysis. Reevaluated today on 01/08/21, patient remains in the ICU, intubated and mechanically ventilated. He is on assist control rate of 20 to tell volume 400 FiO2 50% and PEEP of 12. ABG today showed a pO2 of 95 pCO2 of 37 pH of 7.42, FiO2 was decreased to 45%. Patient remains on amiodarone at 0.5 mg/m, norepinephrine at 0.27 mcg/kg/m propofol at 15 mcg/kg/m Lasix at 10 mg per hour. Patient remains on enteral feeding. Yesterday, patient was seen by nephrology, and ultrafiltration was attempted, patient had poor tolerance to the ultrafiltration, however 600 MLS where removed. Patient also had bleeding at the dialysis catheter site in the right neck, and heparin remains on hold at present, and he is on Coumadin with normal INR, but we'll go ahead and give him 1 dose of vitamin K and that is still oozing around the catheter site in the right IJ area. Blood cultures remain negative sputum cultures are negative urine culture is positive for pseudomonas aeruginosa. Patient was seen by infectious disease and he is now on Zosyn and eraxis. WBC count today is 20.3 hemoglobin is 10.7. INR is 2.5, renal profile showed a BUN of 58 creatinine 2.05. Patient continues to have good urine output almost over 120 mL per hour. Hence we'll continue with the Lasix drip for now. Chest x-ray is showing slight improvement in his pulmonary edema. Patient was reevaluated today on 01/09/21, remains in the ICU, patient remains intubated and mechanically ventilated. He is presently on assist control rate of 22 tidal volumes 400 FiO2 45% PEEP of 12 and I cut down the PEEP to 10. ABG today showed a pO2 of 73 pCO2 35 pH of 7.45. Patient remains sedated, he is on propofol at 10 mcg/kg/m. Patient is also requiring significant amount of norepinephrine 0.3 mcg/kg/m, he is on Lasix at 10 mg per hour and amiodarone 0.5 mg/m. Patient remains on Eraxis and on Zosyn. Continues to have some oozing of blood from the right IJ catheter, hence I recommended today giving the patient a unit of fresh frozen plasma. Albumin was noted to be 3.1 today, nephrology is having difficult time ultrafiltrate the patient. At the blood pressure is marginal. And requiring norepinephrine. However nephrology may try that again unless the family changes their mind about CODE STATUS and may proceed to comfort care measures based on my conversation with the . Over the last 24 hours, patient had a -1.7 L. Yesterday the patient received vitamin K and received DDAVP to help control the oozing and bleeding around the IJ catheter. Vascular surgery is willing to change the dialysis catheter and move it to another place unless the family proceeds with comfort care measures today. Chest x-ray continues to show pulmonary edema, slightly improved. Blood cultures have remained negative. Sputum cultures positive for Cristina. Urine cultures positive for Pseudomonas on admission. Objective - Vital Signs Vital signs: Vital Signs Temp 97.1 F L 01/09/21 12:00 Pulse 93 01/09/21 12:00 Resp 22 01/09/21 12:00 BP 131/66 01/09/21 11:40 Pulse Ox 90 L 01/09/21 12:00 Intake & Output 01/08/21 01/09/21 01/09/21 18:59 06:59 18:59 Intake Total 870.634 573.516 1596.053 Output Total 1954 1595 685 Balance -1084.366 -035.010 5685.053 Weight 108 kg Intake: IV 160 360 250 .9 @ 10mL/hr 160 160 50 Albumin Human 25% 50 ml 200 In Empty Bag 1 bag @ 200 mls/hr IVPB Q15M [facility] Rx#: [id number] Anidulafungin 100 mg In 100 Sodium Chloride 0.9% 100 ml @ 84 mls/hr IVPB DAILY [facility] Rx#:[id number] Potassium Chloride 20 meq 100 In Water For Injection 1 100ml.bag @ 50 mls/hr IVPB Q2H [facility] Rx#: [id number] Intake, IV Titration 304.634 528.947 267.053 Amount Amiodarone 450 mg In 250 Dextrose 5% in Water 250 ml @ 0.5 MG/MIN 16.667 mls/hr IV .Q15H [facility] Rx#: [id number] Furosemide 100 mg In 97.333 81.333 76.333 Sodium Chloride 0.9% 90 ml @ 10 MG/HR 10 mls/hr IV .Q10H [facility] Rx#: [id number] Norepinephrine 32 mg In 53.435 160.308 Sodium Chloride 0.9% 218 ml @ 0.05 MCG/KG/MIN 2. 423 mls/hr IV .Q24H [facility] Rx#:[id number] Potassium Chloride 20 meq 100 In Water For Injection 1 100ml.bag @ 50 mls/hr IVPB Q2H [facility] Rx#: [id number] propofoL 1,000 mg In 153.866 37.306 90.720 Empty Bag 1 bag @ Titrate IV .Q0M [facility] Rx#: [id number] Tube Feeding 256 38 646 Blood Product 506 Ffp 24 Pher Acda Cnt2 222 Unit [id number] Rc Pheresis 2 As3 Unit 284 [id number] Other 150 140 Output: Urine 1954 1595 685 Other: Voiding Method Indwelling Catheter Indwelling Catheter Indwelling Catheter ABP, PAP, CO, CI - Last Documented Arterial Blood Pressure 123/60 - Exam Physical Exam: Revealed 80-year-old white male remains sedated, on propofol, intubated and mechanically ventilated. Head: Atraumatic normocephalic. HEENT:[Neck is supple.] [No neck masses.] [No thyromegaly.] [No JVD.] Endotracheal tube and orogastric tube are intact. Continues to have oozing of blood noted around the right IJ catheter Chest: [Symmetrical chest expansion crackles at the bases bilaterally Cardiac Exam: Irregular irregular rhythm, 2/6 systolic murmur thought the precordium. Abdomen: distended, significant abdominal wall edema is noted, diminished bowel sounds.] Extremities: 3+ bipedal edema, no clubbing, no cyanosis. Scrotal edema is also noted. Neurological Exam: [Cannot be assessed, patient is sedated on propofol. Psychiatric: Could not be assessed. Skin: No rashes except the patient has areas of ecchymosis, and abrasions especially in the left forearm area. - Labs CBC & Chem 7: 01/09/21 08:03 01/09/21 04:10 Labs: Abnormal Lab Results - Last 24 Hours (Table) 01/08/21 01/09/21 01/09/21 Range/Units 17:43 00:48 04:10 WBC (3.8-10.6) k/uL RBC (4.30-5.90) m/uL Hgb (13.0-17.5) gm/dL Hct (39.0-53.0) % MCHC (31.0-37.0) g/dL RDW (11.5-15.5) % Plt Count (150-450) k/uL Neutrophils # (1.3-7.7) k/uL PT 16.3 H (9.0-12.0) sec INR 1.6 H (<1.2) ABG pO2 (83-108) mmHg ABG Total CO2 (19-24) mmol/L Sodium (137-145) mmol/L BUN (9-20) mg/dL Creatinine (0.66-1.25) mg/dL Glucose (74-99) mg/dL POC Glucose (mg/dL) 196 H 184 H (75-99) mg/dL Total Bilirubin (0.2-1.3) mg/dL ALT (4-49) U/L Alkaline Phosphatase (38-126) U/L Total Protein (6.3-8.2) g/dL Albumin (3.5-5.0) g/dL Crossmatch 01/09/21 01/09/21 01/09/21 Range/Units 04:10 04:10 04:56 WBC 13.9 H (3.8-10.6) k/uL RBC 2.61 L (4.30-5.90) m/uL Hgb 7.4 L D (13.0-17.5) gm/dL Hct 25.3 L (39.0-53.0) % MCHC 29.4 L (31.0-37.0) g/dL RDW 16.2 H (11.5-15.5) % Plt Count 53 L (150-450) k/uL Neutrophils # 12.1 H (1.3-7.7) k/uL PT (9.0-12.0) sec INR (<1.2) ABG pO2 73 L (83-108) mmHg ABG Total CO2 25 H (19-24) mmol/L Sodium 134 L (137-145) mmol/L BUN 58 H (9-20) mg/dL Creatinine 2.22 H (0.66-1.25) mg/dL Glucose 206 H (74-99) mg/dL POC Glucose (mg/dL) (75-99) mg/dL Total Bilirubin 3.1 H (0.2-1.3) mg/dL ALT 68 H (4-49) U/L Alkaline Phosphatase 171 H (38-126) U/L Total Protein 5.1 L (6.3-8.2) g/dL Albumin 3.1 L (3.5-5.0) g/dL Crossmatch 01/09/21 01/09/21 01/09/21 Range/Units 06:14 07:07 08:03 WBC 13.7 H (3.8-10.6) k/uL RBC 2.55 L (4.30-5.90) m/uL Hgb 7.4 L (13.0-17.5) gm/dL Hct 24.9 L (39.0-53.0) % MCHC 29.9 L (31.0-37.0) g/dL RDW 16.0 H (11.5-15.5) % Plt Count 61 L (150-450) k/uL Neutrophils # (1.3-7.7) k/uL PT (9.0-12.0) sec INR (<1.2) ABG pO2 (83-108) mmHg ABG Total CO2 (19-24) mmol/L Sodium (137-145) mmol/L BUN (9-20) mg/dL Creatinine (0.66-1.25) mg/dL Glucose (74-99) mg/dL POC Glucose (mg/dL) 228 H (75-99) mg/dL Total Bilirubin (0.2-1.3) mg/dL ALT (4-49) U/L Alkaline Phosphatase (38-126) U/L Total Protein (6.3-8.2) g/dL Albumin (3.5-5.0) g/dL Crossmatch See Detail 01/09/21 Range/Units 12:22 WBC (3.8-10.6) k/uL RBC (4.30-5.90) m/uL Hgb (13.0-17.5) gm/dL Hct (39.0-53.0) % MCHC (31.0-37.0) g/dL RDW (11.5-15.5) % Plt Count (150-450) k/uL Neutrophils # (1.3-7.7) k/uL PT (9.0-12.0) sec INR (<1.2) ABG pO2 (83-108) mmHg ABG Total CO2 (19-24) mmol/L Sodium (137-145) mmol/L BUN (9-20) mg/dL Creatinine (0.66-1.25) mg/dL Glucose (74-99) mg/dL POC Glucose (mg/dL) 218 H (75-99) mg/dL Total Bilirubin (0.2-1.3) mg/dL ALT (4-49) U/L Alkaline Phosphatase (38-126) U/L Total Protein (6.3-8.2) g/dL Albumin (3.5-5.0) g/dL Crossmatch Microbiology - Last 24 Hours (Table) 01/05/21 06:50 Blood Culture - Preliminary Blood No Growth after 72 hours 01/05/21 17:35 Blood Culture - Preliminary Blood No Growth after 72 hours 01/06/21 04:00 Gram Stain - Final Sputum Sputum Culture - Final Cristina albicans Assessment and Plan Assessment: Impression: Acute hypoxic respiratory failure secondary to acute on chronic systolic congestive heart failure with bilateral pleural effusions Coronary artery disease and recent 4 vessel bypass grafting discharged from the hospital on 12/25, echocardiogram showed mildly impaired left ventricle with ejection fraction of 45% Chronic atrial fibrillation. Acute kidney injury possible cardiorenal syndrome. Acute Nonoliguric renal failure. Type 2 diabetes. Dyslipidemia. Hypotension requiring pressors, remains on norepinephrine, the only positive culture is a urine culture showing Pseudomonas, other cultures are negative. Elevated liver enzymes, shocked liver Acute urinary tract infection secondary to pseudomonas aeruginosa. Extensive edema, patient is on Lasix drip, may attempt ultrafiltration again today according to nephrology. Profound weakness and debility Iatrogenic bleeding around IJ catheter, continue to hold heparin and Coumadin will give patient fresh frozen plasma today. INR is 1.5 Recommendation: Continue ventilatory support. PEEP cut down to 10 rate increased to 24 Attempt ultrafiltration again today. According to nephrology on the case. Continue pressors.titrate norepinephrine accordingly. Maintain a mean arterial pressure of above 65. Continue amiodarone. Continue Lasix at 10 mg per hour. Continue to hold heparin and Coumadin and give the patient fresh was a plasma. Continue Zosyn and an eraxis Continue enteral feeding GI prophylaxis. We will continue to follow. Condition remains very critical. Discussed his condition and critical status with the family at bedside, including his and the children, they seem to be inclined to consider comfort care measures. Clearly stated to me that she would never want him to have tracheostomy or PEG tube placement, and he would prefer failure to go peacefully, comfortably, and dignified. I explained to the that she should discuss this with all the family members, and once decision is made regarding comfort care measures, will definitely proceed with comfort care measures as per her wishes. Critical care time is over 40 minutes Time with Patient: Greater than 30
[2021-01-09] MEDS ORDERED: MORPHINE SULFATE 2 MG/ML SYRINGE IV PRN (13:42)
[2021-01-09] MEDS ORDERED: ATROPINE OPHTH SOLN 1% 5ML BTL SUBLINGUAL PRN (13:42)
[2021-01-09] MEDS ORDERED: LORazepam 2 MG/ML INJ IV PRN (13:42)
[2021-01-09] MEDS ORDERED: MORPHINE SULFATE 4 MG/ML SYRINGE IV PRN (13:42)
[2021-01-09 13:55] VITALS: RESP 28
--- NOTE | 2021-01-09 13:59 | P.PN ---
Subjective Progress Note Date: 01/09/21 CHIEF COMPLAINT: Shortness of breath HISTORY OF PRESENT ILLNESS: Surgical service is following in regards to patient's abdominal distention. Patient remains in the ICU intubated and sedated. He is requiring Levophed. He remains on Lasix drip for severe fluid overload.. Patient had temporary hemodialysis catheter placed and has been started on hemodialysis. Patient had bleeding from his IJ catheter. His hemoglobin did drop to 7.4. He is receiving 1 unit of RBCs and 1 unit of fresh frozen plasma. Afebrile. WBC 13.7 hemoglobin 7.4 platelets 61 Patient seen and examined with Dr. man PHYSICAL EXAM: VITAL SIGNS: Reviewed. GENERAL: Well-developed in no acute distress. HEENT: No sclera icterus. Extraocular movements grossly intact. Moist buccal mucosa. Head is atraumatic, normocephalic. ABDOMEN: Soft. Distended NEUROLOGIC: Alert and oriented. Cranial nerves II through XII grossly intact. ASSESSMENT: 1. Abdominal distention 2. Severe anasarca of the abdomen 3. Circumferential bladder wall thickening could represent bladder wall hypertrophy or cystitis with enlarged prostate. 4. Acute hypoxic respiratory failure due to fluid overload and bilateral pleural effusions PLAN: -No surgical intervention planned -Continue ICU management -Continue supportive care Physician Terra Cotta Roofer note has been reviewed by physician. Signing provider agrees with the documented findings, assessment, and plan of care. Objective - Vital Signs Vital signs: Vital Signs Temp 97.1 F L 01/09/21 12:00 Pulse 93 01/09/21 12:00 Resp 22 01/09/21 12:00 BP 131/66 01/09/21 11:40 Pulse Ox 90 L 01/09/21 12:00 Intake & Output 01/08/21 01/09/21 01/09/21 18:59 06:59 18:59 Intake Total 870.634 472.407 4338.453 Output Total 6853 1595 685 Balance -1084.366 -18129.388 8456.453 Weight 108 kg Intake: IV 160 360 250 .9 @ 10mL/hr 160 160 50 Albumin Human 25% 50 ml 200 In Empty Bag 1 bag @ 200 mls/hr IVPB Q15M [facility] Rx#: [id number] Anidulafungin 100 mg In 100 Sodium Chloride 0.9% 100 ml @ 84 mls/hr IVPB DAILY [facility] Rx#:[id number] Potassium Chloride 20 meq 100 In Water For Injection 1 100ml.bag @ 50 mls/hr IVPB Q2H [facility] Rx#: [id number] Intake, IV Titration 304.634 528.947 444.453 Amount Amiodarone 450 mg In 250 Dextrose 5% in Water 250 ml @ 0.5 MG/MIN 16.667 mls/hr IV .Q15H [facility] Rx#: [id number] Furosemide 100 mg In 97.333 81.333 76.333 Sodium Chloride 0.9% 90 ml @ 10 MG/HR 10 mls/hr IV .Q10H [facility] Rx#: [id number] Norepinephrine 32 mg In 53.435 160.308 177.4 Sodium Chloride 0.9% 218 ml @ 0.05 MCG/KG/MIN 2. 423 mls/hr IV .Q24H [facility] Rx#:[id number] Potassium Chloride 20 meq 100 In Water For Injection 1 100ml.bag @ 50 mls/hr IVPB Q2H [facility] Rx#: [id number] propofoL 1,000 mg In 153.866 37.306 90.720 Empty Bag 1 bag @ Titrate IV .Q0M [facility] Rx#: [id number] Tube Feeding 256 38 646 Blood Product 506 Ffp 24 Pher Acda Cnt2 222 Unit [id number] Rc Pheresis 2 As3 Unit 284 [id number] Other 150 140 Output: Urine 1955 1595 685 Other: Voiding Method Indwelling Catheter Indwelling Catheter Indwelling Catheter ABP, PAP, CO, CI - Last Documented Arterial Blood Pressure 123/60 - Labs CBC & Chem 7: 01/09/21 08:03 01/09/21 04:10 Labs: Abnormal Lab Results - Last 24 Hours (Table) 01/08/21 01/09/21 01/09/21 Range/Units 17:43 00:48 04:10 WBC (3.8-10.6) k/uL RBC (4.30-5.90) m/uL Hgb (13.0-17.5) gm/dL Hct (39.0-53.0) % MCHC (31.0-37.0) g/dL RDW (11.5-15.5) % Plt Count (150-450) k/uL Neutrophils # (1.3-7.7) k/uL PT 16.3 H (9.0-12.0) sec INR 1.6 H (<1.2) ABG pO2 (83-108) mmHg ABG Total CO2 (19-24) mmol/L Sodium (137-145) mmol/L BUN (9-20) mg/dL Creatinine (0.66-1.25) mg/dL Glucose (74-99) mg/dL POC Glucose (mg/dL) 196 H 184 H (75-99) mg/dL Total Bilirubin (0.2-1.3) mg/dL ALT (4-49) U/L Alkaline Phosphatase (38-126) U/L Total Protein (6.3-8.2) g/dL Albumin (3.5-5.0) g/dL Crossmatch 01/09/21 01/09/21 01/09/21 Range/Units 04:10 04:10 04:56 WBC 13.9 H (3.8-10.6) k/uL RBC 2.61 L (4.30-5.90) m/uL Hgb 7.4 L D (13.0-17.5) gm/dL Hct 25.3 L (39.0-53.0) % MCHC 29.4 L (31.0-37.0) g/dL RDW 16.2 H (11.5-15.5) % Plt Count 53 L (150-450) k/uL Neutrophils # 12.1 H (1.3-7.7) k/uL PT (9.0-12.0) sec INR (<1.2) ABG pO2 73 L (83-108) mmHg ABG Total CO2 25 H (19-24) mmol/L Sodium 134 L (137-145) mmol/L BUN 58 H (9-20) mg/dL Creatinine 2.22 H (0.66-1.25) mg/dL Glucose 206 H (74-99) mg/dL POC Glucose (mg/dL) (75-99) mg/dL Total Bilirubin 3.1 H (0.2-1.3) mg/dL ALT 68 H (4-49) U/L Alkaline Phosphatase 171 H (38-126) U/L Total Protein 5.1 L (6.3-8.2) g/dL Albumin 3.1 L (3.5-5.0) g/dL Crossmatch 01/09/21 01/09/21 01/09/21 Range/Units 06:14 07:07 08:03 WBC 13.7 H (3.8-10.6) k/uL RBC 2.55 L (4.30-5.90) m/uL Hgb 7.4 L (13.0-17.5) gm/dL Hct 24.9 L (39.0-53.0) % MCHC 29.9 L (31.0-37.0) g/dL RDW 16.0 H (11.5-15.5) % Plt Count 61 L (150-450) k/uL Neutrophils # (1.3-7.7) k/uL PT (9.0-12.0) sec INR (<1.2) ABG pO2 (83-108) mmHg ABG Total CO2 (19-24) mmol/L Sodium (137-145) mmol/L BUN (9-20) mg/dL Creatinine (0.66-1.25) mg/dL Glucose (74-99) mg/dL POC Glucose (mg/dL) 228 H (75-99) mg/dL Total Bilirubin (0.2-1.3) mg/dL ALT (4-49) U/L Alkaline Phosphatase (38-126) U/L Total Protein (6.3-8.2) g/dL Albumin (3.5-5.0) g/dL Crossmatch See Detail 01/09/21 Range/Units 12:22 WBC (3.8-10.6) k/uL RBC (4.30-5.90) m/uL Hgb (13.0-17.5) gm/dL Hct (39.0-53.0) % MCHC (31.0-37.0) g/dL RDW (11.5-15.5) % Plt Count (150-450) k/uL Neutrophils # (1.3-7.7) k/uL PT (9.0-12.0) sec INR (<1.2) ABG pO2 (83-108) mmHg ABG Total CO2 (19-24) mmol/L Sodium (137-145) mmol/L BUN (9-20) mg/dL Creatinine (0.66-1.25) mg/dL Glucose (74-99) mg/dL POC Glucose (mg/dL) 218 H (75-99) mg/dL Total Bilirubin (0.2-1.3) mg/dL ALT (4-49) U/L Alkaline Phosphatase (38-126) U/L Total Protein (6.3-8.2) g/dL Albumin (3.5-5.0) g/dL Crossmatch Microbiology - Last 24 Hours (Table) 01/05/21 06:50 Blood Culture - Preliminary Blood No Growth after 72 hours 01/05/21 17:35 Blood Culture - Preliminary Blood No Growth after 72 hours 01/06/21 04:00 Gram Stain - Final Sputum Sputum Culture - Final Cristina albicans
[2021-01-09] MEDS ORDERED: MORPHINE SULFATE (100 MG/2 ML) 100 MG in SODIUM CHLORIDE 0.9% 100 ML IV SCH (14:00)
[2021-01-09] MEDS ORDERED: SCOPOLAMINE 1.5MG/72HR PATCH TRANSDERM SCH (14:00)
[2021-01-09 14:05] VITALS: BP 82/72
[2021-01-09 15:25] VITALS: PULSE 111
--- NOTE | 2021-01-09 16:13 | P.PN ---
Progress Note - Text Progress Note Date: 01/09/21 REASON FOR FOLLOWUP: Leukocytosis, pneumonia and possible oropharyngeal candidiasis. INTERVAL HISTORY: The patient remains to be afebrile. The patient remains to be intubated on the vent. FiO2 is currently 45%. No significant purulent secretion through the ET diarrhea or any other changes reported by nursing staff. PHYSICAL EXAMINATION: Blood pressure is 130/67, pulse of 96, temperature 97.5. He is 95% on 35% FIO2. General description is an elderly male intubated on the vent. Respiratory system: Unlabored breathing, decreased intensity of breath sounds. No wheeze. Heart S1, S2. Regular rate and rhythm. Abdomen: Soft, no tenderness. Extremities: No edema of the feet. LABS: Hemoglobin is 10, white count 13.3, sputum is showing yeast blood culture negative DIAGNOSTIC IMPRESSION AND PLAN: Patient with leukocytosis, multifactorial with component nosocomial pneumonia and oropharyngeal candidiasis. Previous culture positive for Pseudomonas Sputum has been Cristina which could be colonization versus oropharyngeal candidiasis, Blood culture negative. Patient's white count Is down to 13,000 from initial high of 29 however the family leading towards hospice oriented care which maybe appropriate, Antibiotic and be discontinued
--- NOTE | 2021-01-12 14:41 | P.DS ---
Providers Date of admission: 12/27/20 20:45 Expected date of discharge: 01/09/21 Attending physician: Monica Slater Consults: 12/27/20 20:43 Consult Physician Urgent Consulting Provider: Jazmine Edmond Consult Reason/Comments: CHF and elevated LFTs status post open-heart surgery Do you want consulting provider notified?: Yes 12/27/20 20:47 Consult Physician Urgent Consulting Provider: Guzman Vásquez Consult Reason/Comments: CHF, pleural effusions Do you want consulting provider notified?: Yes Consult Physician Urgent Consulting Provider: Ron Ellington Consult Reason/Comments: CHF Do you want consulting provider notified?: Yes 12/29/20 09:40 Consult Physician Routine Consulting Provider: Ashley Reyes Consult Reason/Comments: michael Do you want consulting provider notified?: Yes 01/03/21 12:37 Consult Physician Routine Consulting Provider: Roberto Paniagua Consult Reason/Comments: history of urine retention, catheter in place Do you want consulting provider notified?: Yes, Notify in am 01/04/21 21:21 Consult Physician Urgent Consulting Provider: Dyllan Rendon Consult Reason/Comments: illeus / general surgery Do you want consulting provider notified?: Yes, Notify in am 01/06/21 07:17 Consult Physician Routine Consulting Provider: Carla Akers Consult Reason/Comments: Leukocytosis Do you want consulting provider notified?: Yes 01/06/21 16:14 Consult Physician Routine Consulting Provider: Tyrone Gutierrez Consult Reason/Comments: Bladder wall hypertrophy or cystitis on computed tomography scan Do you want consulting provider notified?: Yes 01/07/21 12:11 Consult Physician Urgent Consulting Provider: Yonathan Moreno Consult Reason/Comments: Temporary hemodialysis catheter Do you want consulting provider notified?: Yes Primary care physician: Cipriano [facility] Course: HISTORY OF PRESENT ILLNESS This is a 80-year-old male patient of Dr. Campos and Dr. Mullins with past medical history of chronic persistent atrial fibrillation, diabetes mellitus type 2, hypertension, hyperlipidemia, history of pituitary tumor resection, obstructive sleep apnea on BiPAP, gastroesophageal reflux disease, benign prostatic hyper trophy. He should also has history of coronary artery disease status post PCI to the LAD in 2005, heart catheterization in October 2020 found severe triple- vessel disease, subsequently admitted to the hospital for elective coronary artery bypass grafting 12/16 for four-vessel bypass MORAN to LAD, left radial artery from the aorta to the first obtuse marginal artery, reverse saphenous vein graft from the aorta to the second diagonal artery, reverse saphenous vein graft from the aorta to the posterior descending artery, endoscopic harvesting of the left radial artery, endoscopic harvesting of the left greater saphenous vein from ankle to the groin, exclusion of the left atrial appendage. During his last admission, he remained in ICU,Until December 24,, and after he was transferred to [facility] for cardiac recovery program. He has chronic atrial fibrillation, diabetes mellitus type 2, hypertension, hyperlipidemia, history of pituitary gland resection, obstructive sleep apnea, BPH with urinary retention, and delirium.. At the time of discharge, he was on Coumadin and Singulair Cardizem CD lisinopril Tylenol, he was taken off atenolol Vytorin lisinopril Imdur aspirin and nitro. -He comes back to the emergency room 2 days later, from [facility], secondary to shortness of breath, and edema. She also has worsening of her liver issues, with no visible jaundice. On ER presentation, he has indwelling Temple catheter, there is no fever, no focal deficit, chest pain, he has shortness of breath, no vomiting, no diarrhea, no melena. In the emergency room, EKG shows atrial fibrillation heart rate of 79, no significant change compared to 927 EKG, double basic count is 15, hemoglobin of 9, sodium of 131, BUN 62 creatinine 4.7, CO2 of 19 total bili of 7.3, AST 949 ALT 881, alkaline phosphatase 411, troponin is stagnant at 0.14, and 0.148. Lactic acid level was 2.1, INR is 3.3 ultrasound of the gallbladder, shows common bile duct is normal, liver is enlarged, otherwise no other pathologies noted. Chest x-ray shows bilateral pleural effusion, basilar pulmonary infiltrates, which slightly is worse compared to previous, mild heart failure is possible, cardiomegaly some change patient is admitted to ICU with consultation to critical care medicine Dr. Vásquez, and cardiology. Chest ultrasound is ordered CMV and hepatitis panels ordered, patient would need a CAT scan of the abdomen, to eval for spleen gallbladder, Tylenol is discontinued, Lipitor is discontinued check for haptoglobin, reticulocyte count, and iron studies to evaluate portal system. 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 INR is 3. Sodium 132, potassium 4.1, chloride 100, CO2 18, BUN 65 and creatinine 1.81, blood sugar 119. Total bilirubin 6.5, AST 493, ALT 663, alkaline phosphatase 360. INR is 3.0. Magnesium 2.6. Lipase 473. CMV nonreactive 2 draws. Hepatitis panel negative. Repeat chest x-ray reveals patchy perihilar and basilar infiltrates/atelectasis as well as pleural effusions persist without significant interval change. Dr. Cartagena has ordered for vitamin K 2.5 mg and repeat INR with plan for thoracentesis once INR is under 2. Patient is also followed by cardiology and Lasix decreased to 40 mg IV daily. Echocardiogram reveals EF of 45-60% with moderate concentric left hypertrophy, LA is severely dilated, mild to moderate mitral regurgitation, mild tricuspid regurgitation. Patient denies having any shortness of breath at rest. He denies abdominal pain, no nausea. He has had good urine output around 35 mL per hour. 12/30: Patient underwent right sided thoracentesis this morning with Dr. Cartagena with removal of approximately 650 ML's of turbid fluid. Repeat chest x-ray following procedure showed no complications. Patient was on BiPAP during the night and currently on O2 by nasal cannula at 3 L with pulse ox of 97%. Blood pressure 101/64, heart rate 81, afebrile. Patient has been seen and followed by nephrology for acute kidney injury secondary to hypotension and hypoperfusion. Plan is to continue diuresis in the patient, hold MAURA inhibitor, check cortisol level, monitor I&O's. Midodrine was increased yesterday. Repeat blood work today reveals WBC 12.2, hemoglobin 9.9 and platelet count 312. INR this morning was 1.9. Sodium 128, potassium 4.7, chloride 95, CO2 21, BUN 71 and creatinine 2.11. Blood sugars running between 109 and 134. Repeat liver function tests reveal total bilirubin 6, AST 28, ALT 535, alkaline phosphatase 295. Magnesium 2.8. Cortisol level came back at 27. Patient will be transferred to the cardiac stepdown unit. 12/31: Patient remains in the intensive care unit, today resting in bed on BiPAP. Patient became hypotensive overnight and required levo fed and was transferred back to the intensive care unit. Levo fed is currently off. Repeat blood work reveals WBC 16.5, hemoglobin 10.4, platelet count 282. Sodium 125, potassium 5.8, BUN 77 and creatinine 2.75. AST 1302, ALT 987, alkaline phosphatase 236. INR 2.9. Patient is followed by multiple consultants including cardiology, pulmonary medicine, nephrology and cardiothoracic surgery. Patient has been reaching 1000 on incentive spirometry. CAT scan of the abdomen and pelvis reveals nonobstructive left nephrolithiasis. Left pleural effusion difficult to exclude basilar pneumonia or atelectasis. There may be a posterior dependent he will. Cardiac. Coronary artery disease. Repeat chest x-ray reveals stable bibasilar infiltrate and small left pleural effusion. Renal ultrasound reveals limited assessment of left kidney demonstrate no definite hydronephrosis or hydroureter lysis. No hydronephrosis on the right kidney 01/01: Patient remains in the intensive care unit, resting in chair on nasal oxygen and appears to be comfortable. Pulse ox is 99%, blood pressure 80/65 and he is on levo fed. Lopressor was decreased by nephrology. Heart rate is 106, afebrile. Repeat blood work reveals WBC 10.1, hemoglobin 10.3, platelet count 291. INR 2.7. Sodium 130, potassium 4.0, chloride 94, CO2 25, BUN 76 and creatinine 2.38. Calcium 7.7. Magnesium 2.8. AST 824, ALT 920, alkaline phosphatase 210. Patient received calcium gluconate 1 g this morning. Chest x-ray reveals pleural parenchymal density left lower lobe persistent appears to be somewhat improved. 01/02: Patient remains in intensive care unit. He appears to be less jaundiced today. Urine is blood tinged. He states he is uncomfortable all over his body but no specific pain. He states he is skinny interrupted sleep throughout the night and melatonin increased. He continues not have appetite and Remeron added. Discussed with cardiothoracic surgery transitioning patient to eliquis although patient had episodes of nausea with this and to discuss other options, and also regard the posterior hemopericardium. Patient has been afebrile, heart rate 105, blood pressure 103/70, pulse ox 99% 2 L nasal cannula. Repeat blood work reveals WBC 10.8, hemoglobin 10.6, platelet count 251. Sodium 131, potassium 3.7, chloride 100, CO2 22, BUN 16 creatinine 1.41. Blood sugars are running between 105 and 144. Lactic acid 2.1. Calcium 7.8. Liver function tests are improving with total bilirubin 3.5, AST 449, ALT 684, alkaline phosphatase 194. LDH 1192. Lipase 302. 01/03: Patient evaluated this morning, remains in intensive care unit, patient is awake and alert, is currently on room air. Repeat chest x-ray shows pleural parenchymal lung base that is unchanged. Repeat blood work reveals hemoglobin 10.6, platelet count of 220, INR 3.1, sodium 132, BUN 58, creatinine 1.48, AST 319, ALT 578, Alk Phos 190. Liver function tests are improving. Urine culture showed Pseudomonas aeruginosa, he is on cefepime. Telemetry showing atrial fibrillation, he was started on xarelto yesterday for anticoagulation, and was held today for increase in INR. He was given calcium gluconate and albumin today and also a dose of Lasix Vital signs are heart rate 103, respiratory rate 13, blood pressure 92/72, 94% on room air. 01/04: Patient evaluated this morning, remains in the ICU, sitting up resting in the bedside recliner, patient is awake and alert. Labs show hemoglobin 10.5, platelets 221, INR 2, potassium 4.1, BUN 59, creatinine 1.57, total bilirubin 2.8, AST 188, ALT 457, alk phos 222, albumin 2.9. Telemetry still showing atrial fibrillation with an elevated rate, cardiology is following and is on amiodarone 400 mg twice a day. Patient continues to have problems with blood pressure and postural hypotension. Flomax was discontinued, urology consult appreciated. Recommends to continue with the Temple catheter until he is more stabilized and ambulating, then we'll plan to remove the catheter and do a voiding trial. Pulmonary reviewed repeat chest x-ray from today and shows a moderate sized left sided pleural effusion, right-sided pleural effusion has recovered. Pulmonary considering possibly doing another thoracentesis on the left side. Patient does not require any pressors at this point. Patient still has extensive edema in the upper and lower extremities with signs of fluid overload, Lasix 40 mg IV ordered. He continues on cefepime for Pseudomonas aeruginosa in the urine. Oral intake continues to be poor, recently started on Remeron. 01/05: Patient was intubated last evening and was started on propofol, norepinephrine and was on amiodarone. Patient is currently on mechanical ventilation with tidal volume 400, FiO2 60, PEEP of 10. He is undergoing echocardiogram at this time which reported EF of 50-55% with moderate concentric left ventricular hypertrophy, no pericardial effusion.. He continues to have significant anasarca and edema. Heart rate is running in the low 100s with atrial fibrillation. Repeat blood work reveals WBC 17.3, hemoglobin 12, platelet count 185. INR is 1.8. Sodium 131, potassium 3.9, chloride 99, CO2 20, BUN 61 and creatinine 1.73. Blood sugars are running between 141 and 203. Total bilirubin 2.7, AST 89, ALT 300, alkaline phosphatase 201. Cortisol level LV. Chest x-ray reveals worsening left lower lobe infiltrate. Small to moderate pleural effusion may be worsening. Increased perihilar infiltrates more notably on the right. CT of the abdomen and pelvis with contrast revealed bilateral lower lobe pulmonary consolidation and pleural fluid. Cardiomegaly. Congestive heart failure is possible. Some loculated ascites fluid noted in the abdomen. No free air. No sign of mechanical bowel obstruction. Subcutaneous edema around the abdomen. 01/06 patient evaluated on 01/06 remains in the ICU intubated. continues to remain on assist control on FiO2 50% BP is improved from 10 to a respiratory rate of 22. Chest x-ray suggestive of pulmonary edema patient remains on Lasix drip at 10 mics per hour. Metolazone initiated at 5 mg daily. Patient continues to remain in atrial fibrillation continue amiodarone at 1 monique per minute. On sedation maintained with propofol. Patient continued to remain on norepinephrine definite 0.3 monique per KG per minute. Labs were reviewed patient's WBC worsened to 29.3 hemoglobin 10.6 increase in neutrophils. ABG obtained this from pH 7.42 pCO2 32, pO2 105 sodium 131 bicarb 18 BUN 15 and creatinine 1.9 lactic acid was 2.2 calcium 7.8 phosphorus 4.7 liver enzymes continued to downtrend with AST 60 ALT [address] abdomen reviewed suggestive of severe anasarca change with third spacing severe lower lobe and inferior lingular consolidation suggestive of aspiration pneumonitis extensive edema that is changes involving the deeper plane of visualized upper thighs arm. Second concern showed bladder wall thickening representing chronic bladder wall hypertrophy and cystitis.. 5.9 cm noted. Infectious disease consulted the Zosyn added. No sign of bowel ischemia noted. Abdominal ultrasound suggestive of mild abdominal ascites with moderate right pleural effusion no obvious hydronephrosis, gallstones or biliary duct dilation noted infection noted. Enteral feeding to be initiated today 01/07 patient remains intubated, on assist control FiO2 reduced to 55%, PEEP of 12. Continues to remain on IV Solu-Medrol, Lasix drip, heparin drip, propofol and IV Levophed. Vitals reviewed patient is afebrile pulse 80. Respiratory rate 21 blood pressure 105/62. On 91% saturation on 55% FiO2. Urine output adequate at 40-60 mg per hour. Patient continued to gain weight and has gained 13 kg since admission. WBC is assist 28.5 hemoglobin 10.8 INR is high at 3.1 sodium 131 potassium 2.8 BUN 16 creatinine 2.2 to glucose 167 calcium 7.8 AST ALT continue to improve. Pro-calcitonin 5.12. Continues to remain on Zosyn per infectious disease recommendation. 01/08: She remains in the intensive care unit, intubated and on mechanical ventilation with tidal volume 400, FiO2 45, PEEP of 12. He is currently on Lasix drip, albumin, norepinephrine, calcium gluconate, propofol. Patient's is at bedside and states that he has not had a bowel movement since he started having abdominal pain. Patient is now on dialysis due to generalized anasarca. Temple catheter is draining urine with good amount of 100 225 mL per hour. Lasix drip is at 10 ML's an hour. Patient is also on amiodarone drip currently in atrial fibrillation. 01/09: Patient remains intubated on mechanical ventilation with tidal volume 400, FiO2 80 and PEEP of 10. Patient has a right IJ dialysis catheter in place which has had bleeding through the night. Heparin drip was discontinued and vitamin K was given. Patient remains on levo fed, amiodarone, Lasix drip, propofol. Repeat blood work reveals WBC 13.7, hemoglobin 7.4, platelet count 61. BUN 58 creatinine 2.22. Blood sugars 184-228. AST 26, ALT 68, alkaline phosphatase 171. Hemoglobin dropped from 10.7 yesterday to 7.4 and he was transfused 1 unit of packed RBCs and will 1 unit of frozen plasma. Patient has good urine output. Temperature down to 95. Heart rate in the 90s, respiratory rate in the high 20s, blood pressure 113/57, pulse ox 92%. Multiple family members are in the room at this time and are discussing option of moving towards comfort care. Patient was made comfort care and on the afternoon of 01/09. Please see nursing documentation for details. DISCHARGE DIAGNOSES 1. Acute hypoxic respiratory failure secondary to acute on chronic systolic heart failure with bilateral pleural effusions, possible aspiration pneumonia not completely ruled out, status post bilateral thoracentesis. 2. Severe coagulopathy with worsening of transaminitis and jaundice secondary to ischemic liver cirrhosis. 3. Acute kidney injury with ATN (POA) and chronic kidney disease stage II secondary to hypoperfusion, obstructive uropathy with balloon not in the bladder. 4. Acute sepsis with septic shock and cardiogenic shock. 5. Coronary artery disease status post 4 vessel CABG 12/16. 6. Chronic persistent atrial fibrillation. 7. Acute transaminitis likely secondary to congestive heart failure and ischemic liver cirrhosis. 8. Hypervolemic hyponatremia. 9. Acute temple catheter associated Pseudomonas UTI (POA). 10. Metabolic acidosis secondary to sepsis. 11. Diabetes mellitus type 2. Continue with NovoLog scale before meals and at bedtime, blood sugar is controlled. 12. Hypertension. 13. Hyperlipidemia. 14. Urinary retention. 15. History of pituitary gland resection. 16. Obstructive sleep apnea on BiPAP. 17. Gastroesophageal reflux disease. 18. Possible posterior katie-pericardium, ruled out. 19. Anasarca with pleural effusions scrotal edema secondary to fluid overload 20. Moderate protein calorie malnutrition. Impression and plan of care have been directed as dictated by the signing physician. Erica Alfredo nurse practitioner acting as scribe for signing physician. Patient Condition at Discharge: Undetermined Plan - Discharge Summary New Discharge Prescriptions: No Action Cholecalciferol [Vitamin D3 (25 Mcg = 1000 Iu)] 25 mcg PO DAILY@1700 Ascorbic Acid [Vitamin C] 500 mg PO DAILY@1700 Warfarin [Coumadin] 2.5 mg PO DIRECTED Esomeprazole Magnesium [NexIUM] 40 mg PO DAILY@0600 Calcium Carbonate [Calcium] 300 mg PO DAILY@1700 Warfarin [Coumadin] 5 mg PO DIRECTED Montelukast [Singulair] 10 mg PO HS@2100 Acetaminophen Tab [Tylenol] 650 mg PO Q4HR PRN tab PRN Reason: Fever And/ Or Pain Ipratropium-Albuterol Nebulize [Duoneb 0.5 mg-3 mg/3 ml Soln] 3 ml INHALATION RT-Q2H PRN PRN Reason: Shortness Of Breath/Wheezing bisacodyL [Dulcolax] 10 mg RECTAL DAILY PRN PRN Reason: Constipation Ipratropium-Albuterol Nebulize [Duoneb 0.5 mg-3 mg/3 ml Soln] 3 ml INHALATION RT-Q6H INSULIN ASPART (NovoLOG) [NovoLOG (formulary)] See Protocol SQ ACHS Atorvastatin [Lipitor] 40 mg PO HS@2100 Magnesium Hydroxide [Milk of Magnesia Concentrate] 7,200 mg PO DAILY PRN PRN Reason: Constipation Latanoprost/Pf [Latanoprost 0.005% Eye Drop] 1 drop BOTH EYES HS@2100 Diltiazem Cd [Cardizem CD] 120 mg PO DAILY@0800 lisinopriL [Zestril] 5 mg PO DAILY@1200 tab Na Phos,M-B/Na Phos,Di-Ba [Fleet Adult] 133 ml RECTAL DAILY PRN PRN Reason: Constipation Midodrine HCl 5 mg PO TID@0800,1200,1700 Metoprolol Tartrate [Lopressor] 75 mg PO BID@0800,1700 Tamsulosin [Flomax] 0.4 mg PO DAILY@0800 Aspirin 81 mg PO DAILY@1700 Sennosides-Docusate Sodium [Senokot-S] 2 tab PO HS PRN PRN Reason: Constipation Discharge Medication List Ascorbic Acid [Vitamin C] 500 mg PO DAILY@1700 04/29/15 [History] Cholecalciferol [Vitamin D3 (25 Mcg = 1000 Iu)] 25 mcg PO DAILY@1700 04/29/15 [History] Esomeprazole Magnesium [NexIUM] 40 mg PO DAILY@0600 04/29/15 [History] Warfarin [Coumadin] 2.5 mg PO DIRECTED 04/29/15 [History] Calcium Carbonate [Calcium] 300 mg PO DAILY@1700 04/30/16 [History] Diltiazem Cd [Cardizem CD] 120 mg PO DAILY@0800 06/10/20 [History] Latanoprost/Pf [Latanoprost 0.005% Eye Drop] 1 drop BOTH EYES HS@209906/10/20 [History] Montelukast [Singulair] 10 mg PO HS@209906/10/20 [History] Warfarin [Coumadin] 5 mg PO DIRECTED 06/10/20 [History] Acetaminophen Tab [Tylenol] 650 mg PO Q4HR PRN tab 12/25/20 [Rx] lisinopriL [Zestril] 5 mg PO DAILY@1200 tab 12/25/20 [Rx] Aspirin 81 mg PO DAILY@1700 12/27/20 [History] Atorvastatin [Lipitor] 40 mg PO HS@209912/27/20 [History] INSULIN ASPART (NovoLOG) [NovoLOG (formulary)] See Protocol SQ ACHS 12/27/20 [History] Ipratropium-Albuterol Nebulize [Duoneb 0.5 mg-3 mg/3 ml Soln] 3 ml INHALATION RT-Q2H PRN 12/27/20 [History] Ipratropium-Albuterol Nebulize [Duoneb 0.5 mg-3 mg/3 ml Soln] 3 ml INHALATION RT-Q6H 12/27/20 [History] Magnesium Hydroxide [Milk of Magnesia Concentrate] 7,200 mg PO DAILY PRN 12/27/20 [History] Metoprolol Tartrate [Lopressor] 75 mg PO BID@0800,1700 12/27/20 [History] Midodrine HCl 5 mg PO TID@0800,1200,1700 12/27/20 [History] Na Phos,M-B/Na Phos,Di-Ba [Fleet Adult] 133 ml RECTAL DAILY PRN 12/27/20 [History] Sennosides-Docusate Sodium [Senokot-S] 2 tab PO HS PRN 12/27/20 [History] Tamsulosin [Flomax] 0.4 mg PO DAILY@0800 12/27/20 [History] bisacodyL [Dulcolax] 10 mg RECTAL DAILY PRN 12/27/20 [History] Follow up Appointment(s)/Referral(s): Cipriano Campos MD [Primary Care Provider] - 1-2 days Care,[facility] [NON-STAFF] - 1-2 Days Discharge Disposition: - Preliminary Cause of Preliminary Cause of : Acute hypoxic resp fx, acute on chronic systolic heart fx.
== END 2021-01-09 17:15 | disposition expired | DRG 291 ==
LOC: EC 16:58 → 3SCARD 20:45 → 2SICU 12-28 09:13 → 3SCARD 12-30 21:44 → 2SICU 12-31 03:14
PROVIDERS: ADMIT Family Medicine; ATTEND Family Medicine
PROC: 5A09557 Assistance with Respiratory Ventilation, Greater than 96 Consecutive Hours, Continuous Positive Airway Pressure (ICD-10-PCS; 2020-12-28)
PROC: 0W993ZZ Drainage of Right Pleural Cavity, Percutaneous Approach (ICD-10-PCS; 2020-12-30)
PROC: 0W9B3ZZ Drainage of Left Pleural Cavity, Percutaneous Approach (ICD-10-PCS; 2020-12-30)
PROC: 3E033XZ Introduction of Vasopressor into Peripheral Vein, Percutaneous Approach (ICD-10-PCS; 2020-12-31)
PROC: 05HC33Z Insertion of Infusion Device into Left Basilic Vein, Percutaneous Approach (ICD-10-PCS; 2021-01-01)
PROC: 0BH17EZ Insertion of Endotracheal Airway into Trachea, Via Natural or Artificial Opening (ICD-10-PCS; principal; 2021-01-04)
PROC: 0D9670Z Drainage of Stomach with Drainage Device, Via Natural or Artificial Opening (ICD-10-PCS; principal; 2021-01-04)
PROC: 5A1955Z Respiratory Ventilation, Greater than 96 Consecutive Hours (ICD-10-PCS; principal; 2021-01-04)
PROC: 4A133J1 Monitoring of Arterial Pulse, Peripheral, Percutaneous Approach (ICD-10-PCS; 2021-01-05)
PROC: 4A133B1 Monitoring of Arterial Pressure, Peripheral, Percutaneous Approach (ICD-10-PCS; 2021-01-05)
PROC: 03HY32Z Insertion of Monitoring Device into Upper Artery, Percutaneous Approach (ICD-10-PCS; 2021-01-05)
PROC: 02HV33Z Insertion of Infusion Device into Superior Vena Cava, Percutaneous Approach (ICD-10-PCS; 2021-01-05)
PROC: 3E0G76Z Introduction of Nutritional Substance into Upper GI, Via Natural or Artificial Opening (ICD-10-PCS; 2021-01-06)
PROC: 02HV33Z Insertion of Infusion Device into Superior Vena Cava, Percutaneous Approach (ICD-10-PCS; 2021-01-07)
PROC: 5A1D70Z Performance of Urinary Filtration, Intermittent, Less than 6 Hours Per Day (ICD-10-PCS; 2021-01-07)
PROC: 30243K1 Transfusion of Nonautologous Frozen Plasma into Central Vein, Percutaneous Approach (ICD-10-PCS; 2021-01-09)
PROC: 30243N1 Transfusion of Nonautologous Red Blood Cells into Central Vein, Percutaneous Approach (ICD-10-PCS; 2021-01-09)
DX: I13.0 Hypertensive heart and chronic kidney disease with heart failure and stage 1 through stage 4 chronic kidney disease, or unspecified chronic kidney disease (principal); J96.01 Acute respiratory failure with hypoxia; I50.23 Acute on chronic systolic (congestive) heart failure; K76.7 Hepatorenal syndrome; K72.00 Acute and subacute hepatic failure without coma; N17.0 Acute kidney failure with tubular necrosis; J69.0 Pneumonitis due to inhalation of food and vomit; A41.9 Sepsis, unspecified organism; R65.21 Severe sepsis with septic shock; J18.9 Pneumonia, unspecified organism; K85.90 Acute pancreatitis without necrosis or infection, unspecified; I31.2 Hemopericardium, not elsewhere classified; J91.8 Pleural effusion in other conditions classified elsewhere; B37.89 Other sites of candidiasis; E44.0 Moderate protein-calorie malnutrition; D68.9 Coagulation defect, unspecified; E87.4 Mixed disorder of acid-base balance; F05 Delirium due to known physiological condition; R18.8 Other ascites; B37.0 Candidal stomatitis; D68.32 Hemorrhagic disorder due to extrinsic circulating anticoagulants; J44.0 Chronic obstructive pulmonary disease with (acute) lower respiratory infection; N13.6 Pyonephrosis; T83.511A Infection and inflammatory reaction due to indwelling urethral catheter, initial encounter; E87.1 Hypo-osmolality and hyponatremia; N13.8 Other obstructive and reflux uropathy; D62 Acute posthemorrhagic anemia; I48.21 Permanent atrial fibrillation; J98.11 Atelectasis; R57.0 Cardiogenic shock; I42.9 Cardiomyopathy, unspecified; D69.6 Thrombocytopenia, unspecified; E11.22 Type 2 diabetes mellitus with diabetic chronic kidney disease; K74.60 Unspecified cirrhosis of liver; Z79.4 Long term (current) use of insulin; Z66 Do not resuscitate; Z51.5 Encounter for palliative care; Z20.822 Contact with and (suspected) exposure to COVID-19; E86.1 Hypovolemia; R16.0 Hepatomegaly, not elsewhere classified; N18.2 Chronic kidney disease, stage 2 (mild); N40.1 Benign prostatic hyperplasia with lower urinary tract symptoms; R33.8 Other retention of urine; I25.10 Atherosclerotic heart disease of native coronary artery without angina pectoris; I08.1 Rheumatic disorders of both mitral and tricuspid valves; E87.5 Hyperkalemia; E87.6 Hypokalemia; I95.1 Orthostatic hypotension; T50.1X5A Adverse effect of loop [high-ceiling] diuretics, initial encounter; I45.10 Unspecified right bundle-branch block; I45.4 Nonspecific intraventricular block; E78.5 Hyperlipidemia, unspecified; G47.33 Obstructive sleep apnea (adult) (pediatric); K21.9 Gastro-esophageal reflux disease without esophagitis; N32.89 Other specified disorders of bladder; N50.89 Other specified disorders of the male genital organs; R58 Hemorrhage, not elsewhere classified; T45.515A Adverse effect of anticoagulants, initial encounter; R77.8 Other specified abnormalities of plasma proteins; Y95 Nosocomial condition; Z68.38 Body mass index [BMI] 38.0-38.9, adult; Z79.82 Long term (current) use of aspirin; Z79.01 Long term (current) use of anticoagulants; Z79.899 Other long term (current) drug therapy; Z95.1 Presence of aortocoronary bypass graft; Z95.5 Presence of coronary angioplasty implant and graft; Z86.39 Personal history of other endocrine, nutritional and metabolic disease; Z98.890 Other specified postprocedural states; Z71.3 Dietary counseling and surveillance; Y84.6 Urinary catheterization as the cause of abnormal reaction of the patient, or of later complication, without mention of misadventure at the time of the procedure; Y92.129 Unspecified place in nursing home as the place of occurrence of the external cause; Z82.49 Family history of ischemic heart disease and other diseases of the circulatory system; Z81.8 Family history of other mental and behavioral disorders
CPT/HCPCS: 36410; 36415; 36573; 36600; 71045; 74019; 74176; 74177; 76604; 76700; 76705; 76770; 76937; 80048; 80053; 80074; 81001; 82140; 82150; 82330; 82533; 82803; 82805; 83010; 83605; 83615; 83690; 83735; 83880; 83935; 84100; 84132; 84134; 84145; 84484; 85025; 85027; 85045; 85610; 85730; 86301; 86644; 86645; 86706; 86850; 86900; 86901; 86920; 87040; 87070; 87077; 87086; 87186; 87205; 87340; 87635; 90935; 93005; 93306; 93308; 94002; 94003; 94640; 94660; 94760; 96374; 99285